=== PATIENT | female | born 1960 | race Caucasian/White ===

== ENCOUNTER 2021-11-07 14:03 | Emergency (ER) | payer OTHER, SELFPAY ==
--- NOTE | ~2021-11-07 | US_ITS ---
EXAMINATION: US ABDOMEN LIMITED CLINICAL INFORMATION: Elevated LFTs. COMPARISON: Abdominal ultrasound dated from 02/17/2015. TECHNIQUE: Real-time imaging of the right upper quadrant abdominal viscera. FINDINGS: PANCREAS: Normal. LIVER: Normal. The liver is normal in size. The liver contour is normal. Parenchymal echogenicity is normal. No focal hepatic lesion. There is no intrahepatic biliary duct dilatation seen. GALLBLADDER: The gallbladder is contracted and suboptimally visualized. No pericholecystic fluid is identified. Yates sign was negative. COMMON BILE DUCT: Normal in caliber measuring 0.2 cm in diameter. RIGHT KIDNEY: There are a few indeterminate cortical hyperechoic foci with no associated twinkle artifact nor posterior shadowing, largest measuring 0.3 cm. No hydronephrosis or focal parenchymal lesions. The kidney measures 8.2 cm in maximum dimension. FREE FLUID: None. US/US abdomen limited IMPRESSION: Indeterminate hyperechoic cortical foci in the right kidney, possibly representing nonobstructive stones or vascular calcifications. No hydronephrosis. The gallbladder was suboptimally visualized due to contraction. Recommend repeat imaging or further assessment with a CT of the abdomen if gallbladder pathology suspected.
--- NOTE | ~2021-11-07 | XR_ITS ---
EXAMINATION: XR CHEST CLINICAL INFORMATION: Lower extremity swelling. COMPARISON: None TECHNIQUE: Frontal view of the chest was obtained. FINDINGS: No significant abnormality is noted involving the heart, lungs, mediastinum, bony thorax or soft tissues. XR/XR chest 1V IMPRESSION: Unremarkable examination.
[2021-11-07 14:35] VITALS: BP 121/76; PULSE 62; RESP 16; TEMP 36.6; O2SAT 99; BMI 19.1
--- NOTE | 2021-11-07 15:58 | PC.NURSE ---
pt brought to triage room to draw blood. this rn placing tourniquet on left arm, tourniquet tightening appears to have given pt skin tear to l upper arm, bleeding controlled. telfa dressing with gauze wrapped around wound site. following blood draw, small skin tear appearing on left forearm where needle hub sat against skin. lower forearm wound also covered with telfa and gauze wrap.
[2021-11-07 16:05] LABS: Hematocrit 25.1 % (37.0-47.0); Hemoglobin 7.3 g/dl (12.0-16.0); Mean Corpuscular HGB Conc 29.1 g/dl (31.0-35.0); Mean Corpuscular Hemoglobin 23.3 pg (27.0-33.0); Mean Corpuscular Volume 80.2 fL (80.0-98.0); Platelet Count 389 X10*3/uL (160-400); Red Blood Count 3.13 X10*6/uL (4.20-5.50); White Blood Count 4.4 X10*3/uL (4.8-10.8)
[2021-11-07 16:20] LABS: Anion Gap 12 (12-20); Blood Urea Nitrogen 16 mg/dL (9-16); Calcium 9.1 mg/dL (8.4-10.2); Carbon Dioxide 27 mmol/L (22-29); Chloride 109 mmol/L (96-108); Creatinine Clr Calc Pharmacy 68.3; Estimated Glomerular Filt Rate > 60; Glucose Random 62 mg/dL (60-115); Potassium 4.9 mmol/L (3.3-5.1); Sodium 143 mmol/L (135-145)
[2021-11-07 16:24] LABS: B Type Natriuretic Peptide 336 pg/mL (<100); Troponin-I High Sensitivity < 3.5 ng/L (<3.5-17.0)
--- NOTE | 2021-11-07 18:54 | ECG_ITS ---
Test Reason : WEAKNESS Blood Pressure : / mmHG Vent. Rate : 050 BPM Atrial Rate : 050 BPM P-R Int : 140 ms QRS Dur : 074 ms QT Int : 438 ms P-R-T Axes : 089 072 076 degrees QTc Int : 399 ms Sinus bradycardia Otherwise normal ECG When compared with ECG of 17-FEB-2015 19:54, Questionable change in QRS axis Non-specific change in ST segment in Inferior leads T wave inversion no longer evident in Inferior leads Referred By: Lisandra Crespo Electronically Signed By:LOGAN ENAMORADO
--- NOTE | 2021-11-07 19:16 | ED_ITS ---
HPI - Extremity Problem General Chief complaint: Extremity Injury, Lower Stated complaint: Weakness/Swollen feet Time Seen by Provider: 11/07/21 18:54 Source: patient Mode of arrival: ambulatory Limitations: no limitations History of Present Illness HPI Narrative: also notes since increased fatigue, weight loss, dyspnea on exertion, runs for 1 hour a day usually for decades but it has become much kendy dorcas Complaint: extremity swelling Onset (ago): week(s) (1) Pain Consistency: intermittent Location: left, right and lower extremity (ankles and feet) Quality: aching and dull Radiation: none Relieving factors: nothing Exacerbating factors: weight bearing and walking Associated symptoms: denies other symptoms Context: other (has not been able to run, cannot see PCP at [place] due to her PCP retiring and COVID restrictions told to come to ED) Related Data Previous Rx's Medication Instructions Recorded ferrous sulfate 325 mg (65 mg 325 mg PO DAILY #30 tab 11/07/21 iron) tablet furosemide 20 mg tablet (Lasix) 20 mg PO DAILY #4 tab 11/07/21 Allergies Allergy/AdvReac Type Severity Reaction Status Date / Time No Known Allergies Allergy Unverified 06/24/20 14:42 [No Known Allergies*] Review of Systems Verdana 4l Review of Systems: Verdana 4d Verdana 4d Constitutional : pos Weight loss, No Fever, No Chills, pos Fatigue, No Malaise ENT/Mouth : No sore throat, No Rhinorrhea Eyes: No Eye Pain, No Swelling, No Redness Cardiovascular : No Chest Pain, No SOB, pos Dyspnea on Exertion, No OrthopneaOrthopnea, pos Edema, No Palpitations Respiratory : No Cough, No Sputum, No Wheezing Gastrointestinal : No Nausea, No Vomiting, No Diarrhea, No Constipation, No abdominal Pain, No Hematochezia, No Melena Genitourinary : No Dysuria, No Urinary Frequency, No Hematuria, Musculoskeletal : No joint pain, No Myalgias, No Joint Swelling Skin : No Skin Lesions, No rash Neuro : No Weakness, No Numbness, No Dizziness, No Headache Psych : No Anxiety/Panic, No Depression Heme/Lymph: pos Bruising, No Bleeding,No Lymphadenopathy Endocrine : No Polyuria, No Polydipsia All other systems reviewed and are negative PMFSH Past Medical History Attestation statement: The following information was validated with the patient. 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 Oriented X3. No acute distress. Cachectic Eyes: Pupils equal, round and reactive to light. ENT: Pharynx normal. Temporal wasting Neck: Normal inspection. Neck supple. CVS: bradycardic heart rate and rhythm. Pulses normal. Respiratory: No respiratory distress. Breath sounds normal. Abdomen: Soft and non-tender. Skin: Skin warm and dry. diffuse easy bruising noted Normal skin turgor. Extremities: pitting edema of ankles and feet 1-2+ Neuro: Oriented X 3. No motor deficit. No sensory deficit. Course Course Course Narrative: elevated LFTs denies ETOH use - US ordered of liver refuses guiac study - I explained that this could be GIB and not Fe, B12, folate given MCV she adamantly refuses guiac test alert and oriented x 3 aware I wanted to admit her but refuses - RN present for discharge conversation and discussion of results MDM - Extremity (Nontraumatic) MDM Narrative Medical decision making narrative: 61 yo female with remote hx of iron deficiency anemia states [facility] but notes since Thanksgiving she has been more fatigued normally runs 1 hour a day but has noted more shortness of breath. She denies GIB symptoms - refuses guiac study. She wants to leave only wants a diuretic to decrease her ankle and feet swelling. I explained that her anemia needs to be worked up and she likely was running anemic which probably caused a cardiomyopathy - she is not interested in staying over and really any medical workup. I explained to her that even if we get her ankle swelling down she cannot run as she is still anemic and she could have a heart attack. She is clearly very stubborn and is not going to agree to much more of a work up in the ED. I am adding on LFTs, iron profile, EKG, CXR. The patient states she has to leave to take care of her mother who is 86 year old. Lab Data Result diagrams: 11/07/21 15:52 11/07/21 15:52 Labs: Lab Results 11/07/21 11/07/21 11/07/21 Range/Units 15:52 15:52 15:52 WBC 4.4 L (4.8-10.8) X10*3/uL RBC 3.13 L (4.20-5.50) X10*6/uL Hgb 7.3 L (12.0-16.0) g/dl Hct 25.1 L (37.0-47.0) % MCV 80.2 (80.0-98.0) fL MCH 23.3 L (27.0-33.0) pg MCHC 29.1 L (31.0-35.0) g/dl RDW 27.0 H (11.0-16.0) % Plt Count 389 (160-400) X10*3/uL MPV 9.0 L (9.4-12.3) fL Absolute Nucleated RBC 0.000 (0.0-0.012) X10*3/uL Nucleated RBC % (auto) 0.0 (0.0-0.2) /100WBC Sodium 143 (135-145) mmol/L Potassium 4.9 (3.3-5.1) mmol/L Chloride 109 H (96-108) mmol/L Carbon Dioxide 27 (22-29) mmol/L Anion Gap 12 (12-20) BUN 16 (9-16) mg/dL Creatinine 0.66 (0.5-1.4) mg/dL Estim Creat Clear Calc 68.3 Estimated GFR > 60 Random Glucose 62 (60-115) mg/dL Calcium 9.1 (8.4-10.2) mg/dL Iron 33 (30-160) mcg/dL TIBC 311 (228-428) mcg/dL % Saturation 11 L (15-50) % Unsat Iron Binding 278 ug/dL Total Bilirubin 0.6 (0.0-1.0) mg/dL Direct Bilirubin 0.2 (0.0-0.5) mg/dL AST 116 H (5-31) U/L ALT 110 H (0-31) U/L Alkaline Phosphatase 158 H (39-117) U/L Troponin I High Sens < 3.5 (<3.5-17.0) ng/L B-Natriuretic Peptide 336 H (<100) pg/mL Total Protein 5.7 L (6.5-8.0) g/dL Albumin 3.0 L (3.5-5.0) g/dL TSH 4.58 H (0.32-4.0) uIU/mL ECG Data Attestation EKG: I personally reviewed and interpreted this ECG as follows: ECG interpretation date: 11/07/21 ECG interpretation time: 19:26 Interpretation: Rate: 50 Rhythm: sinus bradycardia Heber: normal Normal P waves. Normal ROSA. Normal QRS complex. ST T wave : normal no JOANIE qTC: normal prior studies: no acute ischemia The study has been interpreted contemporaneously by me. . Discharge Plan Discharge Clinical Impression: Elevated brain natriuretic peptide (BNP) level, Elevated liver function tests, Swelling of both lower extremities Anemia Qualifiers: Anemia type: unspecified type Qualified Code(s): D64.9 - Anemia, unspecified Patient Disposition: Home, Self-Care Instructions: Heart Failure (ED), Anemia (ED), Edema (ED) Additional Instructions: you are anemic it is hard to say what the cause of this is but you refused stool studes to asses for gastronintestinal bleeding. your heart failure markers were up as well this is possibly due to running while anemic. If you continue to run you may have a heart attack. Your liver enzymes are also elevated at this time. You have abnormalities that need to be worked up further and followed closely. Admission to the hospital is advised. All of these abnormalities are very concerning. Your thyroid test also showed it to be mildly elevated as well. DO NOT RUN UNTIL ANEMIA RESOLVED US findings: US/US abdomen limited IMPRESSION: Indeterminate hyperechoic cortical foci in the right kidney, possibly representing nonobstructive stones or vascular calcifications. ? No hydronephrosis. ? The gallbladder was suboptimally visualized due to contraction. Recommend repeat imaging or further assessment with a CT of the abdomen if gallbladder pathology suspected. Prescriptions: New ferrous sulfate 325 mg (65 mg iron) tablet 325 mg PO DAILY Qty: 30 0RF furosemide [Lasix] 20 mg tablet 20 mg PO DAILY Qty: 4 0RF Referrals: Physician,Unknown J [Primary Care Provider] - 1 day (please call your primary care doctor as soon as possible)
[2021-11-07 19:22] LABS: Alanine Aminotransferase 110 U/L (0-31); Alkaline Phosphatase 158 U/L (39-117); Aspartate Amino Transferase 116 U/L (5-31); Bilirubin Direct 0.2 mg/dL (0.0-0.5); Bilirubin Total 0.6 mg/dL (0.0-1.0); Iron 33 mcg/dL (30-160); Percent Iron Saturation 11 % (15-50); Total Iron Binding Capacity 311 mcg/dL (228-428); Total Protein 5.7 g/dL (6.5-8.0); Unsaturated Iron Binding 278 ug/dL
[2021-11-07 19:36] LABS: Thyroid Stimulating Hormone 4.58 uIU/mL (0.32-4.0)
[2021-11-07 19:54] VITALS: BP 131/76; PULSE 46; RESP 17; O2SAT 100
== END 2021-11-07 21:19 | disposition home or self-care (01) ==
PROVIDERS: Emergency Provider Emergency Medicine
DX: D64.9 Anemia, unspecified (principal); R79.89 Other specified abnormal findings of blood chemistry; M79.672 Pain in left foot; M79.671 Pain in right foot; R60.0 Localized edema; R06.02 Shortness of breath; Z87.891 Personal history of nicotine dependence
CPT/HCPCS: 36415; 71045; 76705; 80048; 80076; 83540; 83880; 84443; 84484; 85027; 93005; 99284

== ENCOUNTER 2021-11-15 07:55 | Inpatient (IN) | payer OTHER, SELFPAY ==
[2021-11-15] VITALS (9 sets, daily range): BP systolic 118–145; BP diastolic 67–88; PULSE 51–99; RESP 12–18; TEMP 36.4–36.8; O2SAT 96–100; BMI 16.5
--- NOTE | ~2021-11-15 | XR_ITS ---
EXAMINATION: LEFT HIP WITH PELVIS AND LEFT KNEE X-RAYS CLINICAL INFORMATION: Fall COMPARISON: None TECHNIQUE: 2 views of the left knee and 2 views of the left hip and one view of the pelvis FINDINGS: Left knee: Bone alignment is normal. No fracture or dislocation is seen. The bones are osteopenic. There is degenerative meniscal calcification. There is arthritis at the patellofemoral and femoral tibial joints. There is no joint effusion. Pelvis and left hip: There is a left femoral intertrochanteric fracture. No other fracture is seen. There is joint space narrowing at both hip joints. Bones of the pelvis are unremarkable. There is soft tissue arterial calcification. XR/XR hip LT min 2V IMPRESSION: Left femoral intertrochanteric fracture. Arthritis and osteopenia of the left knee.
--- NOTE | ~2021-11-15 | FL_ITS ---
EXAMINATION: XR FLUOROSCOPY WITH IMAGES CLINICAL INFORMATION: Left hip fracture COMPARISON: Previous x-ray from yesterday TECHNIQUE: Fluoroscopy performed by Dr. Prakash Mc. Fluoroscopy time: 0.7 minutes DAP: 0.07 [id number] Images: 5 FINDINGS: Images demonstrate an intramedullary toni in a proximal compression/lag screw and single distal cortical screw in the femur with improved alignment of the left femoral intertrochanteric fracture. FL/FL guidance in OR IMPRESSION: ORIF of left femoral intertrochanteric fracture.
--- NOTE | ~2021-11-15 | XR_ITS ---
EXAMINATION: LEFT HIP WITH PELVIS AND LEFT KNEE X-RAYS CLINICAL INFORMATION: Fall COMPARISON: None TECHNIQUE: 2 views of the left knee and 2 views of the left hip and one view of the pelvis FINDINGS: Left knee: Bone alignment is normal. No fracture or dislocation is seen. The bones are osteopenic. There is degenerative meniscal calcification. There is arthritis at the patellofemoral and femoral tibial joints. There is no joint effusion. Pelvis and left hip: There is a left femoral intertrochanteric fracture. No other fracture is seen. There is joint space narrowing at both hip joints. Bones of the pelvis are unremarkable. There is soft tissue arterial calcification. XR/XR knee LT 2V IMPRESSION: Left femoral intertrochanteric fracture. Arthritis and osteopenia of the left knee.
--- NOTE | 2021-11-15 08:31 | ED_ITS ---
HPI - Extremity Injury (Lower) General Chief Complaint: Extremity Injury, Lower Stated Complaint: L LEG PAIN S/P FALL T-1 PER EMS Time Seen by Provider: 11/15/21 08:09 Source: patient and EMS Mode of arrival: EMS Limitations: no limitations History of Present Illness HPI Narrative: Patient comes emergency room complaining of fall . Patient is brought by EMS. Patient states that yesterday she had a mechanical fall in her basement, patient slipped in water. Patient states she did not hit her head or lose consc iousness. Patient denies being on blood thinners. Related Data Home Medications Medication Instructions Recorded Confirmed cholecalciferol (vitamin D3) 25 25 mcg PO DAILY 11/15/21 11/15/21 mcg (1,000 unit) capsule (Vitamin D3) cyanocobalamin (vitamin B-12) 500 500 mcg PO DAILY 11/15/21 11/15/21 mcg tablet [id number] 8 mg-folic 1 tab PO DAILY 11/15/21 11/15/21 ac 400 mcg-vit K 10 mcg chew tablet (Centrum Chewables) Previous Rx's Medication Instructions Recorded ferrous sulfate 325 mg (65 mg 325 mg PO DAILY #30 tab 11/07/21 iron) tablet Allergies Allergy/AdvReac Type Severity Reaction Status Date / Time No Known Allergies Allergy Unverified 06/24/20 14:42 [No Known Allergies*] Review of Systems Review of Systems: Constitutional : No Weight loss, No Fever, No Chills, No Night Sweats, No Fatigue, No Malaise ENT/Mouth : No Hearing loss, No Ear Pain, No Nasal Congestion, No Sinus Pain, No Hoarseness, No sore throat, No Rhinorrhea, No Swallowing Difficulty Eyes: No Eye Pain, No Swelling, No Redness, No Foreign Body, No Discharge, No Vision Changes Cardiovascular : No Chest Pain, No SOB, No Dyspnea on Exertion, No Orthopnea, No Edema, No Palpitations Respiratory : No Cough, No Sputum, No Wheezing, No Smoke Exposure, No Dyspnea Gastrointestinal : No Nausea, No Vomiting, No Diarrhea, No Constipation, No abdominal Pain, No Hematochezia, No Melena Genitourinary : no irregular bleeding, No Dysuria, No Urinary Frequency, No Hematuria, No Urinary Incontinence, No Urgency, No Flank Pain, No Urinary Flow Changes, No Hesitancy Musculoskeletal : Complaining of left lower extremity pain from the hip to the knee, No Myalgias, No Joint Swelling Skin : Complaining of skin tears in the left lower extremity Neuro : No Weakness, No Numbness, No Paresthesias, No Loss of Consciousness, No Dizziness, No Headache Psych : No Anxiety/Panic, No Depression, No SI/HI/AH/VH, No Social Issues, Heme/Lymph: No Bruising, No Bleeding,No Lymphadenopathy Endocrine : No Polyuria, No Polydipsia, No Temperature Intolerance [facility] Past Medical History Medical History Anemia Social History Social History (Updated 11/07/21 @ 19:32 by Lisandra Crespo DO) Patient Tobacco Use Status: Former Tobacco user Advance Directives: No Advance Directives Information Provided: No Patient : No Physical Exam Vital Signs: Vital Signs: Last Vital Signs Temp 98.2 F 11/15/21 10:50 Pulse 52 11/15/21 10:50 Resp 15 11/15/21 10:50 BP 137/67 11/15/21 10:50 Pulse Ox 96 11/15/21 10:50 BMI result Body Mass Index 16.5 Const: Other: Appearance: Alert. Oriented X3. No acute distress. Extremely cachectic, significant temporal wasting Eyes: Pupils equal, round and reactive to light. ENT: Pharynx normal. Neck: Normal inspection. Neck supple. No lymph nodes noted. No crepitus CVS: Bradycardic, Pulses normal. Respiratory: No respiratory distress. Breath sounds normal. No Wheezing. No rales Abdomen: Soft and nontender. Very cachectic Rectal: Patient refused Skin: Skin warm and dry. Multiple skin abrasions to the left lower extremity. Patient has multiple ecchymoses in upper and lower extremities Extremities: See skin above. Pain with knee flexion and extension but able to do so with limited range of motion, mild pain with hip flexion/extension Neuro: Oriented X 3. No motor deficit. No sensory deficit. Moving all extermities. No slurred speech. Course Course Course Narrative: Besides imaging, patient needs blood work. Patient is extremely cachectic. Reviewing patient's notes, she was seen here on November 07. Patient was diagnosed with anemia and sent home with oral iron. Last visit patient declined admission and declined guaiac test. This visit, patient states that she had blood work done a week ago and today she refuses blood work or any other medical intervention other than x-rays and have her abrasions cleaned. I discussed with the patient her physical exam. Patient does not look healthy. As mentioned above, patient declined any other medical intervention other than x-rays. Decline case management. Patient states that she wants crutches and then be discharged. Patient declines admission. After a long conversation with the patient, patient accepted to have an orthopedics consult. Dr. Mc spoke with the patient, patient accepts to get labs, get admitted, and have surgery tomorrow. Patient's hemoglobin improved. At this time, patient declines digital rectal exam. However, patient is willing to get blood transfused. The patient signed the consent, now in patient's chart. I discussed the risks versus benefits of a blood transfusion, patient agreeable. Patient states she has had blood transfusions in the past, [facility]. Patient will get 1 unit. I discussed the patient with Dr. Ro, pt admitted to the surgery service MDM - Extremity Injury (Lower) Lab Data Result diagrams: 11/15/21 11:52 11/15/21 11:52 Labs: Lab Results 11/15/21 11/15/21 11/15/21 Range/Units 11:52 11:52 11:52 WBC 6.6 (4.8-10.8) X10*3/uL RBC 3.10 L (4.20-5.50) X10*6/uL Hgb 7.7 L (12.0-16.0) g/dl Hct 25.7 L (37.0-47.0) % MCV 82.9 (80.0-98.0) fL MCH 24.8 L (27.0-33.0) pg MCHC 30.0 L (31.0-35.0) g/dl RDW 26.7 H (11.0-16.0) % Plt Count 361 (160-400) X10*3/uL MPV 9.2 L (9.4-12.3) fL Immature Gran % (Auto) 0.5 H (0.0-0.4) % Neut % (Auto) 77.8 H (45-73) % Lymph % (Auto) 12.0 L (20-40) % Johnston % (Auto) 9.2 (2-11) % Eos % (Auto) 0.0 (0-4) % Baso % (Auto) 0.5 (0-2) % Lymph # (Auto) 0.8 L (1.2-4.9) X10*3/uL Johnston # (Auto) 0.6 (0.1-1.2) X10*3/uL Eos # (Auto) 0.0 (0.0-0.4) X10*3/uL Baso # (Auto) 0.0 (0.0-0.2) X10*3/uL Abs Immat Gran (auto) 0.03 (0.00-0.03) X10*3/uL Absolute Neuts (auto) 5.1 (2.0-8.3) x10*3/uL Absolute Nucleated RBC 0.000 (0.0-0.012) X10*3/uL Nucleated RBC % (auto) 0.0 (0.0-0.2) /100WBC PT 11.0 (9.9-13.0) SEC INR 1.0 (0.9-1.1) Sodium 147 H (135-145) mmol/L Potassium 3.8 D (3.3-5.1) mmol/L Chloride 103 (96-108) mmol/L Carbon Dioxide 32 H (22-29) mmol/L Anion Gap 16 (12-20) BUN 28 H D (9-16) mg/dL Creatinine 0.82 (0.5-1.4) mg/dL Estim Creat Clear Calc 45.8 Estimated GFR > 60 Random Glucose 54 L* (60-115) mg/dL Calcium 10.0 D (8.4-10.2) mg/dL Magnesium 2.0 (1.6-2.6) mg/dL Total Bilirubin 1.2 H (0.0-1.0) mg/dL Direct Bilirubin 0.4 (0.0-0.5) mg/dL AST 36 H D (5-31) U/L ALT 53 H (0-31) U/L Alkaline Phosphatase 140 H (39-117) U/L Total Protein 5.7 L (6.5-8.0) g/dL Albumin 3.1 L (3.5-5.0) g/dL COVID-19 ([facility]) (Negative) COVID-19 [facility] Blood Type Antibody Screen Crossmatch 11/15/21 11/15/21 Range/Units 11:52 12:01 WBC (4.8-10.8) X10*3/uL RBC (4.20-5.50) X10*6/uL Hgb (12.0-16.0) g/dl Hct (37.0-47.0) % MCV (80.0-98.0) fL MCH (27.0-33.0) pg MCHC (31.0-35.0) g/dl RDW (11.0-16.0) % Plt Count (160-400) X10*3/uL MPV (9.4-12.3) fL Immature Gran % (Auto) (0.0-0.4) % Neut % (Auto) (45-73) % Lymph % (Auto) (20-40) % Johnston % (Auto) (2-11) % Eos % (Auto) (0-4) % Baso % (Auto) (0-2) % Lymph # (Auto) (1.2-4.9) X10*3/uL Johnston # (Auto) (0.1-1.2) X10*3/uL Eos # (Auto) (0.0-0.4) X10*3/uL Baso # (Auto) (0.0-0.2) X10*3/uL Abs Immat Gran (auto) (0.00-0.03) X10*3/uL Absolute Neuts (auto) (2.0-8.3) x10*3/uL Absolute Nucleated RBC (0.0-0.012) X10*3/uL Nucleated RBC % (auto) (0.0-0.2) /100WBC PT (9.9-13.0) SEC INR (0.9-1.1) Sodium (135-145) mmol/L Potassium (3.3-5.1) mmol/L Chloride (96-108) mmol/L Carbon Dioxide (22-29) mmol/L Anion Gap (12-20) BUN (9-16) mg/dL Creatinine (0.5-1.4) mg/dL Estim Creat Clear Calc Estimated GFR Random Glucose (60-115) mg/dL Calcium (8.4-10.2) mg/dL Magnesium (1.6-2.6) mg/dL Total Bilirubin (0.0-1.0) mg/dL Direct Bilirubin (0.0-0.5) mg/dL AST (5-31) U/L ALT (0-31) U/L Alkaline Phosphatase (39-117) U/L Total Protein (6.5-8.0) g/dL Albumin (3.5-5.0) g/dL COVID-19 ([facility]) Negative (Negative) COVID-19 Clin Com See Note Blood Type O Positive Antibody Screen NEGATIVE Crossmatch See Detail Critical Care Time Critical Care Time Critical Care Time: Yes Total Critical Care Time: 50 Attestation: 50 minutes were spent in direct patient care, consults Discharge Plan Discharge Clinical Impression: Closed intertrochanteric fracture of femur, Anemia Patient Disposition: Admitted As Inpatient
[2021-11-15] MEDS: traMADoL HCL 50 MG TABLET PO (08:50)
--- NOTE | 2021-11-15 11:39 | ECG_ITS ---
Test Reason : FALL Blood Pressure : / mmHG Vent. Rate : 055 BPM Atrial Rate : 055 BPM P-R Int : 148 ms QRS Dur : 078 ms QT Int : 396 ms P-R-T Axes : 085 075 089 degrees QTc Int : [address] & T wave abnormality, consider anterior ischemia Abnormal ECG When compared with ECG of 07-NOV-2021 19:20, T wave inversion now evident in Anterior leads Referred By: Isela De Jesus Electronically Signed By:Abdelrahman Trujillo
[2021-11-15 12:13] LABS: MANUAL DIFF FLAG NO
[2021-11-15 12:15] LABS: Basophils Percent Auto 0.5 % (0-2); Hematocrit 25.7 % (37.0-47.0); Hemoglobin 7.7 g/dl (12.0-16.0); Imm Gran Abs Auto 0.03 X10*3/uL (0.00-0.03); Imm Gran Pct Auto 0.5 % (0.0-0.4); Lymphocytes Absolute Auto 0.8 X10*3/uL (1.2-4.9); Mean Corpuscular Hemoglobin 24.8 pg (27.0-33.0); Mean Corpuscular Volume 82.9 fL (80.0-98.0); Mean Platelet Volume 9.2 fL (9.4-12.3); Monocytes Absolute Auto 0.6 X10*3/uL (0.1-1.2); Monocytes Percent Auto 9.2 % (2-11); Neutrophils Absolute Auto 5.1 x10*3/uL (2.0-8.3); Neutrophils Percent Auto 77.8 % (45-73); Platelet Count 361 X10*3/uL (160-400); Red Cell Distribution Width 26.7 % (11.0-16.0); White Blood Count 6.6 X10*3/uL (4.8-10.8)
[2021-11-15 12:35] LABS: COVID-19 Test Negative (Negative)
[2021-11-15 12:37] LABS: Alanine Aminotransferase 53 U/L (0-31); Albumin Level 3.1 g/dL (3.5-5.0); Alkaline Phosphatase 140 U/L (39-117); Anion Gap 16 (12-20); Aspartate Amino Transferase 36 U/L (5-31); Bilirubin Direct 0.4 mg/dL (0.0-0.5); Bilirubin Total 1.2 mg/dL (0.0-1.0); Blood Urea Nitrogen 28 mg/dL (9-16); Carbon Dioxide 32 mmol/L (22-29); Chloride 103 mmol/L (96-108); Creatinine Clr Calc Pharmacy 45.8; Estimated Glomerular Filt Rate > 60; Glucose Random 54 mg/dL (60-115); Potassium 3.8 mmol/L (3.3-5.1); Sodium 147 mmol/L (135-145); Total Protein 5.7 g/dL (6.5-8.0)
--- NOTE | 2021-11-15 13:02 | PHA.MEDREC ---
Pharmacy Consult ? Medication Reconciliation Pharmacy has completed the medication reconciliation. Spoke with patient in ED. Completed 4 days of Furosemide and only on Vitamin supplements.
[2021-11-15 13:26] LABS: Glucose, Whole Blood 118 mg/dL (60-115)
--- NOTE | 2021-11-15 14:09 | P.HPHOSP_ITS ---
History of Present Illness Date of Service: 11/15/21 Chief Complaint: fall, hip pain 61yo F with no chronic medical conditions but recently diagnosed with normocytic anemia. She runs 1 hour daily at an 8:00/mile pace but has had increasing fatigue since along with an 8-lb weight loss, and presented to the ED 11/07/21, where was was noted to have Hb 7.3 with MCV 80. She refused stool occult blood exam. She was prescribed iron. She was also noted to have peripheral edema and was prescribed furosemide. BNP was elevated to 336. AST was 116 and ALT 110. Albumin 3. She denies hematochezia or melena. Her PCP at the [facility] recently retired and she does not yet have a new one. Yesterday at 14:00, she slipped in a puddle of water in her basement and fell on her left side. No loss of consciousness or head trauma and the fall was clearly mechanical. She somehow crawled to bed. Today, she called EMS due to persistent L hip pain. She is found on imaging to have an intertrochanteric fracture of the left hip. She is also noted to be anemic and cachectic. She insists she needs to go home as soon as possible to take care of her elderly mother. She insists on being discharged home right after operative fixation. Review of Systems Review of Systems: Yes all other systems are reviewed and are negative [facility] Medical History Anemia Functional capacity: independent ambulation Pertinent family history: mother- [place] father- [place] Social History Patient Tobacco Use Status: Former Tobacco user Advance Directives: No Advance Directives Information Provided: No Patient : No Narrative: lives with mother was in the [facility] for 8 yr quit smoking after 30 pk/yr hx no EtOH or drug use Meds Allergies Allergy/AdvReac Type Severity Reaction Status Date / Time No Known Allergies Allergy Unverified 06/24/20 14:42 [No Known Allergies*] Active Medications: Current Medications Pharmacy Consult (Consult Rx Perform Med Rec) 1 each MISCELLANE ONCE PRN PRN Reason: Consult order Vitamin D (Cholecalciferol (Vitamin D3) 25 Mcg Tablet) 25 mcg PO DAILY [facility] Home Medications Medication Instructions Recorded Confirmed Last Taken Type cholecalciferol (vitamin D3) 25 25 mcg PO DAILY 11/15/21 11/15/21 11/14/21 History mcg (1,000 unit) capsule (Vitamin D3) cyanocobalamin (vitamin B-12) 500 500 mcg PO DAILY 11/15/21 11/15/21 11/14/21 History mcg tablet [id number] 8 mg-folic 1 tab PO DAILY 11/15/21 11/15/21 11/14/21 History ac 400 mcg-vit K 10 mcg chew tablet (Centrum Chewables) Physical Exam Vital Signs and Narrative: Vital Signs: Last Vital Signs Temp 98.1 F 11/15/21 13:52 Pulse 55 11/15/21 13:52 Resp 12 11/15/21 13:52 BP 134/78 11/15/21 13:52 Pulse Ox 99 11/15/21 13:31 BMI result Body Mass Index 16.5 Gen: NAD, cachectic HEENT: sclera anicteric, moist mucus membranes Neck: supple Lungs: clear to auscultation bilaterally Heart: bradycardic, no murmurs Abd: soft, non-tender, non-distended Ext: no edema, multiple abrasions to L leg, multiple ecchymoses on extremities, LLE externally rotated Skin: warm/well-perfused Neuro: alert and oriented x3, no focal findings Psych: appropriate affect Results Labs CBC and Chem 7: 11/15/21 11:52 11/15/21 11:52 Labs: Laboratory Results - last 24 hr 11/15/21 11/15/21 11/15/21 11:52 11:52 11:52 MCV 82.9 MCH 24.8 L MCHC 30.0 L RDW 26.7 H Plt Count 361 MPV 9.2 L Immature Gran % (Auto) 0.5 H Neut % (Auto) 77.8 H Lymph % (Auto) 12.0 L [place] % (Auto) 9.2 Eos % (Auto) 0.0 Baso % (Auto) 0.5 Lymph # (Auto) 0.8 L [place] # (Auto) 0.6 Eos # (Auto) 0.0 Baso # (Auto) 0.0 Abs Immat Gran (auto) 0.03 Absolute Neuts (auto) 5.1 Absolute Nucleated RBC 0.000 Nucleated RBC % (auto) 0.0 PT 11.0 INR 1.0 Anion Gap 16 Estim Creat Clear Calc 45.8 Estimated GFR > 60 POC Glucose Random Glucose 54 L* Calcium 10.0 D Magnesium 2.0 Total Bilirubin 1.2 H Direct Bilirubin 0.4 AST 36 H D ALT 53 H Alkaline Phosphatase 140 H Total Protein 5.7 L Albumin 3.1 L COVID-19 ([facility]) COVID-19 Clin Com Blood Type Antibody Screen Crossmatch 11/15/21 11/15/21 11/15/21 11:52 12:01 13:22 MCV MCH MCHC RDW Plt Count MPV Immature Gran % (Auto) Neut % (Auto) Lymph % (Auto) [place] % (Auto) Eos % (Auto) Baso % (Auto) Lymph # (Auto) [place] # (Auto) Eos # (Auto) Baso # (Auto) Abs Immat Gran (auto) Absolute Neuts (auto) Absolute Nucleated RBC Nucleated RBC % (auto) PT INR Anion Gap Estim Creat Clear Calc Estimated GFR POC Glucose 118 H Random Glucose Calcium Magnesium Total Bilirubin Direct Bilirubin AST ALT Alkaline Phosphatase Total Protein Albumin COVID-19 ([facility]) Negative COVID-19 Clin Com See Note Blood Type O Positive Antibody Screen NEGATIVE Crossmatch See Detail Impressions Hip X-Ray 11/15/21 09:09 IMPRESSION: Left femoral intertrochanteric fracture. Arthritis and osteopenia of the left knee. Knee X-Ray 11/15/21 09:09 IMPRESSION: Left femoral intertrochanteric fracture. Arthritis and osteopenia of the left knee. Imaging Radiologist's Impressions: Impressions Hip X-Ray 11/15/21 09:09 IMPRESSION: Left femoral intertrochanteric fracture. Arthritis and osteopenia of the left knee. Knee X-Ray 11/15/21 09:09 IMPRESSION: Left femoral intertrochanteric fracture. Arthritis and osteopenia of the left knee. Assessment and Plan (1) Closed intertrochanteric fracture of femur: Status: Acute (2) Anemia: Status: Acute Plan 61yo F with recently diagnosed anemia, transaminasemia, peripheral edema, and hypoalbuminemia presenting after mechanical fall with left femoral intertrochanteric fracture. # intertrochanteric fracture. - admit to M/S, Ortho consult, NPO after midnight for operative fixation # anemia, normocytic - transfuse 1u pRBCs - check iron studies, B12/folate, LDH/retics, FOBT # transaminasemia - AST/ALT improved. US with normal liver 11/07/21. check HBV/HCV status. # hypoglycemia - resolved # elevated BNP/peripheral edema - will check TTE. possibility of exercise-induced cardiomyopathy was raised at last ED visit # hyperNa - encourage free water intake, recheck BMP in am # severe protein/calorie malnutrition - supplements # VTE ppx - SCDs # code - FULL Quality Stroke Does the patient have a stroke diagnosis?: No VTE Prior VTE?: No VTE Risk Level:: Medical - moderate - high VTE Device Contraindication: N/A - Device Ordered VTE Drug Contraindication: N/A - Med Ordered
[2021-11-15 14:47] LABS: Immature Retic Fraction 20.4 % (3.0-15.9); Retic HGB Equivalent 32.2 pg (30.0-35.0); Reticulocyte Percent 1.4 % (0.5-1.8); Reticulocytes Absolute 0.043 X10*6/uL (0.026-0.095)
[2021-11-15] MEDS: ondansetron HCL 4 MG/2 ML VIAL IVPUSH (14:58)
[2021-11-15] MEDS: Morphine Sulfate 2 MG/ML CARTRIDGE IVPUSH ×3 (15:00→23:51)
[2021-11-15 15:02] LABS: Iron 67 mcg/dL (30-160); Lactate Dehydrogenase 323 U/L (122-220); Percent Iron Saturation 22 % (15-50); Total Iron Binding Capacity 309 mcg/dL (228-428); Unsaturated Iron Binding 242 ug/dL
[2021-11-15 15:15] LABS: B Type Natriuretic Peptide 201 pg/mL (<100)
[2021-11-15 15:23] LABS: Ferritin 33 ng/mL (10-250); TSH reflex Free T4 4.93 uIU/mL (0.32-4.0)
[2021-11-15] MEDS: 0.9 % Sodium Chloride Flush 3 ML SYRINGE IVFLUSH ×2 (15:36→23:42)
[2021-11-15 16:10] LABS: Free T4 (Free Thyroxine) 0.83 ng/dL (0.71-1.85)
--- NOTE | 2021-11-15 17:08 | MHC.CM.PN ---
PATIENT LIVES WITH HER MOTHER/NEW HCP ( WILL BE COMPLETED AND PLACED IN CHART) PATIENT HAS CRUTCHES SHE IS VERBALIZES ANXIETY AROUND BEING HERE, HER MOTHER IS ALONE IN THE HOME. WHEN ASKED IF THIS SMALL BUSINESS REPRESENTATIVE COULD CALL HER MOTHER, SHE DENIES, STATING THAT THE MOTHER WILL NOT ANSWER UNKNOWN NUMBERS. PATIENT ADVISED TO CALL HER MOTHER AND LET THIS SMALL BUSINESS REPRESENTATIVE KNOW IF SHE FEELS MOTHER NEEDS A WELLNESS CHECK. PATIENT DENIES THIS INTERVENTION. PATIENT HAS BEEN COVID-19 VACCINATED WITH PFIZER AND BOOSTER SERIES SHE IS UNABLE TO RECALL THE DATES BUT DOES HAVE THE SHOT RECORD AT HOME. SHE HAS NOT SEEN A PCP IN 'YEARS ANDYEARS BUT DOES STATE THAT [facility] ([facility]) COVERS ANY NEEDS SHE MAY HAVE WHEN ASKED FOR AN EXPLANATION OF BENEFITS SHE RECEIVES, SHE REPLIES EYE CARE, MY TEETH, AND MEDICAL SHE TELLS THIS SMALL BUSINESS REPRESENTATIVE THAT PLAN IS FOR SURGICAL INTERVENTION TOMORROW MORNING CASE MANAGEMENT FOLLOWING
--- NOTE | 2021-11-15 18:13 | PC.NURSE ---
Attempted to call report RN Unavailable. Will attempt contact in 15 minutes
[2021-11-16] VITALS (16 sets, daily range): BP systolic 111–156; BP diastolic 57–86; PULSE 45–77; RESP 8–18; TEMP 35.1–36.8; O2SAT 98–100; BMI 16.5
[2021-11-16 06:02] LABS: Hematocrit 35.2 % (37.0-47.0); Hemoglobin 10.8 g/dl (12.0-16.0)
[2021-11-16 06:32] LABS: Alanine Aminotransferase 46 U/L (0-31); Albumin Level 2.9 g/dL (3.5-5.0); Alkaline Phosphatase 134 U/L (39-117); Anion Gap 12 (12-20); Aspartate Amino Transferase 30 U/L (5-31); Bilirubin Total 1.7 mg/dL (0.0-1.0); Blood Urea Nitrogen 37 mg/dL (9-16); Calcium 9.5 mg/dL (8.4-10.2); Carbon Dioxide 34 mmol/L (22-29); Chloride 102 mmol/L (96-108); Creatinine Clr Calc Pharmacy 48.8; Estimated Glomerular Filt Rate > 60; Glucose Random 33 mg/dL (60-115); Potassium 4.3 mmol/L (3.3-5.1); Sodium 144 mmol/L (135-145); Total Protein 5.4 g/dL (6.5-8.0)
[2021-11-16] MEDS: Dextrose 50 % 25 GM/50 ML SYRINGE IVPUSH (06:54)
[2021-11-16] MEDS: Morphine Sulfate 2 MG/ML CARTRIDGE IVPUSH ×4 (07:49→21:47)
[2021-11-16] MEDS: Dextrose 5 % and Lactated Ring 1,000 ML 80 ML IVCONT (07:49)
[2021-11-16] MEDS: 0.9 % Sodium Chloride Flush 3 ML SYRINGE IVFLUSH (07:49)
--- NOTE | 2021-11-16 08:00 | PM.HPOR ---
History of Present Illness History of Present Illness Date of Service: 11/16/21 Chief complaint: L hip fx Narrative: Karen Long is a 61 year old female who presents to the ED on 11/15/21 after sustaining a mechanical fall onto her left hip. She felt immediate pain. She was able to make it to her bed and rested overngiht. She continued to have pain and therefore called EMS in the morning. She presented to the ED where x-rays where obtained and she was found to have a left hip intertrochanteric fracture. She has a past medical history significant for anemia in which she was seen in the ED about 1 week ago. She refused a workup for this, refused transfused and requested d/c home with iron. She is very active and runs 8 miles per day. She was admitted to the hospitalist service and orthopedics was consulted for further evaluation and treatment. Review of Systems Review of Systems: Yes all other systems are reviewed and are negative PMFSH Past Medical History Medical History Anemia Functional capacity: independent ambulation Social History Social History Household Members: Other Household Members Other:: mother Housing: House Do you presently have visiting nurse or other home services: No Alcohol intake: never Patient Tobacco Use Status: Former Tobacco user service: Yes Current occupational status: employed Meds Allergies Allergy/AdvReac Type Severity Reaction Status Date / Time No Known Allergies Allergy Unverified 06/24/20 14:42 [No Known Allergies*] Active Medications: Current Medications Acetaminophen (Acetaminophen 325 Mg Tablet) 650 mg PO Q6H PRN PRN Reason: Pain, Mild (Pain Scale 1-3) Cyanocobalamin (Cyanocobalamin (Vitamin B-12) 500 Mcg Tablet) 500 mcg PO DAILY [facility] Last Admin: 11/16/21 07:32 Dose: Not Given Documented by: Ferrous Sulfate (Ferrous Sulfate 324 Mg Tablet.) 324 mg PO DAILY [facility] Last Admin: 11/16/21 07:32 Dose: Not Given Documented by: Dextrose/Lactated Ringer's ([email or web address]) 1,000 mls @ 80 mls/hr IVCONT .[id number] [facility]ERTO CARLOS Last Admin: 11/16/21 07:49 Dose: 80 mls/hr Documented by: Morphine Sulfate (Morphine Sulfate 2 Mg/Ml Cartridge) 2 mg IVPUSH Q4H PRN; Protocol PRN Reason: severe pain Last Admin: 11/16/21 07:49 Dose: 2 mg Documented by: Multivitamins/Vitamin C (Multivitamin Tablet) 1 tab PO DAILY [facility] Last Admin: 11/16/21 07:32 Dose: Not Given Documented by: Ondansetron HCl (Ondansetron Hcl 4 Mg/2 Ml Vial) 4 mg IVPUSH Q8H PRN PRN Reason: Nausea and Vomiting Last Admin: 11/15/21 14:58 Dose: 4 mg Documented by: Pharmacy Consult (Consult Rx Perform Med Rec) 1 each MISCELLANE ONCE PRN PRN Reason: Consult order Sodium Chloride (0.9 % Sodium Chloride Flush 3 Ml Syringe) 3 ml IVFLUSH QSHIFT [facility] Last Admin: 11/16/21 07:49 Dose: 3 ml Documented by: Vitamin D (Cholecalciferol (Vitamin D3) 25 Mcg Tablet) 25 mcg PO DAILY [facility] Last Admin: 11/16/21 07:32 Dose: Not Given Documented by: Home Medications Medication Instructions Recorded Confirmed Last Taken Type cholecalciferol (vitamin D3) 25 25 mcg PO DAILY 11/15/21 11/15/21 11/14/21 History mcg (1,000 unit) capsule (Vitamin D3) cyanocobalamin (vitamin B-12) 500 500 mcg PO DAILY 11/15/21 11/15/21 11/14/21 History mcg tablet [id number]-[id number]-[id number] 8 mg-folic 1 tab PO DAILY 11/15/21 11/15/21 11/14/21 History ac 400 mcg-vit K 10 mcg chew tablet (Centrum Chewables) Physical Exam Vital Signs: Vital Signs: Last Vital Signs Temp 97.9 F 11/16/21 07:35 Pulse 60 11/16/21 07:35 Resp 18 11/16/21 07:35 BP 111/57 L 11/16/21 07:35 Pulse Ox 100 11/16/21 07:35 BMI result Body Mass Index 16.5 Const: General: cooperative, healthy appearing and no acute distress Resp: Effort & Inspection: normal respiratory effort and able to speak in complete sentences Cardio: Rate: regular rate Peripheral pulses: Peripheral pulses 2+ throughout GI: Palpation (GI): Soft to palpation Skin: Lesions: no lesions Rashes: no rashes Extrem: Other: Left lower extremity unable to perform straight leg raise. Pain with log roll. NVI. Results Labs Result Diagrams: 11/16/21 05:32 11/16/21 05:32 Labs: Abnormal lab results 11/15/21 11/15/21 11/15/21 Range/Units 11:52 11:52 11:52 RBC 3.10 L (4.20-5.50) X10*6/uL Hgb 7.7 L (12.0-16.0) g/dl Hct 25.7 L (37.0-47.0) % MCH 24.8 L (27.0-33.0) pg MCHC 30.0 L (31.0-35.0) g/dl RDW 26.7 H (11.0-16.0) % MPV 9.2 L (9.4-12.3) fL Immature Gran % (Auto) 0.5 H (0.0-0.4) % Neut % (Auto) 77.8 H (45-73) % Lymph % (Auto) 12.0 L (20-40) % Lymph # (Auto) 0.8 L (1.2-4.9) X10*3/uL Immature Retic Fraction 20.4 H (3.0-15.9) % Sodium 147 H (135-145) mmol/L Carbon Dioxide 32 H (22-29) mmol/L BUN 28 H D (9-16) mg/dL POC Glucose (60-115) mg/dL Random Glucose 54 L* (60-115) mg/dL Total Bilirubin 1.2 H (0.0-1.0) mg/dL AST 36 H D (5-31) U/L ALT 53 H (0-31) U/L Alkaline Phosphatase 140 H (39-117) U/L Lactate Dehydrogenase 323 H (122-220) U/L B-Natriuretic Peptide 201 H (<100) pg/mL Total Protein 5.7 L (6.5-8.0) g/dL Albumin 3.1 L (3.5-5.0) g/dL Prealbumin 17.0 L (20-40) mg/dL TSH 4.93 H (0.32-4.0) uIU/mL Crossmatch 11/15/21 11/15/21 11/16/21 Range/Units 12:01 13:22 05:32 RBC (4.20-5.50) X10*6/uL Hgb 10.8 L D (12.0-16.0) g/dl Hct 35.2 L D (37.0-47.0) % MCH (27.0-33.0) pg MCHC (31.0-35.0) g/dl RDW (11.0-16.0) % MPV (9.4-12.3) fL Immature Gran % (Auto) (0.0-0.4) % Neut % (Auto) (45-73) % Lymph % (Auto) (20-40) % Lymph # (Auto) (1.2-4.9) X10*3/uL Immature Retic Fraction (3.0-15.9) % Sodium (135-145) mmol/L Carbon Dioxide (22-29) mmol/L BUN (9-16) mg/dL POC Glucose 118 H (60-115) mg/dL Random Glucose (60-115) mg/dL Total Bilirubin (0.0-1.0) mg/dL AST (5-31) U/L ALT (0-31) U/L Alkaline Phosphatase (39-117) U/L Lactate Dehydrogenase (122-220) U/L B-Natriuretic Peptide (<100) pg/mL Total Protein (6.5-8.0) g/dL Albumin (3.5-5.0) g/dL Prealbumin (20-40) mg/dL TSH (0.32-4.0) uIU/mL Crossmatch See Detail 11/16/21 Range/Units 05:32 RBC (4.20-5.50) X10*6/uL Hgb (12.0-16.0) g/dl Hct (37.0-47.0) % MCH (27.0-33.0) pg MCHC (31.0-35.0) g/dl RDW (11.0-16.0) % MPV (9.4-12.3) fL Immature Gran % (Auto) (0.0-0.4) % Neut % (Auto) (45-73) % Lymph % (Auto) (20-40) % Lymph # (Auto) (1.2-4.9) X10*3/uL Immature Retic Fraction (3.0-15.9) % Sodium (135-145) mmol/L Carbon Dioxide 34 H (22-29) mmol/L BUN 37 H (9-16) mg/dL POC Glucose (60-115) mg/dL Random Glucose 33 L* (60-115) mg/dL Total Bilirubin 1.7 H (0.0-1.0) mg/dL AST (5-31) U/L ALT 46 H (0-31) U/L Alkaline Phosphatase 134 H (39-117) U/L Lactate Dehydrogenase (122-220) U/L B-Natriuretic Peptide (<100) pg/mL Total Protein 5.4 L (6.5-8.0) g/dL Albumin 2.9 L (3.5-5.0) g/dL Prealbumin (20-40) mg/dL TSH (0.32-4.0) uIU/mL Crossmatch H & H 11/15/21 11/16/21 Range/Units 11:52 05:32 Hgb 7.7 L 10.8 L D (12.0-16.0) g/dl Hct 25.7 L 35.2 L D (37.0-47.0) % Coagulation 11/15/21 Range/Units 11:52 INR 1.0 (0.9-1.1) All other labs normal. Assessment and Plan (1) Closed intertrochanteric fracture of femur: Status: Acute Plan I discussed the case with Dr. Mc and explained the extent of the injury to the patient and options available which include surgical intervention. I explained the procedure in detail along with the length of recovery and rehab course. I explained the risk, benefits and alternatives. Risk including, but not limited to infection, blood clots, bleeding, non union or malunion and nerve/tissue damage to surrounding areas. I answered all their questions and with their understanding they have consented to move forward with Operative Fixation of the left hip. The patient will be T&S, med clearance obtained and NPO after midnight. Quality Stroke Does the patient have a stroke diagnosis?: No VTE Prior VTE?: No VTE Risk Level:: Medical - moderate - high VTE Device Contraindication: N/A - Device Ordered VTE Drug Contraindication: N/A - Med Ordered Procedures Date of Service Date of Service: 11/16/21
[2021-11-16 08:12] LABS: Glucose, Whole Blood 130 mg/dL (60-115)
--- NOTE | 2021-11-16 08:30 | CA_ITS ---
Transthoracic Echocardiogram Patient (Last, First, Middle): Karen Long A Gender: Female Date of : 1960 Age: 61 Procedure Date: 11/16/2021 Procedure Type: Transthoracic Echocardiogram Location: S3E Height: 157.48 cm Weight: 40.82 kg BSA: 1.36 m2 Heart Rate: bpm BP: 139 / 86 mmHg Supervisor Insulation: Referring MD: Sol Ro MD Symptoms: elevated BNP, fatigue Study Quality: Fair ECG Rhythm: Sinus with extra beats Conclusions: - Normal left ventricular size and systolic function. - E/E prime ratio is between 8 and 15 consistent with indeterminate filling pressures. - Normal right ventricular cavity size and systolic function. - No significant valvular or pericardial pathology. Findings Left Ventricle Normal left ventricular size and systolic function. There is mildly increased left ventricular wall thickness. The visually estimated ejection fraction is between 55-60%. There is no evidence of regional wall motion abnormalities. Abnormal diastolic function is noted. Spectral Doppler is indicative of an impaired relaxation filling pattern. E/E prime ratio is between 8 and 15 consistent with indeterminate filling pressures. Right Ventricle Normal right ventricular cavity size and systolic function. Atria The left atrium is moderately dilated. Aortic Valve Normal aortic valve structure and function. There is no aortic valve stenosis. There is no aortic valve regurgitation. Mitral Valve Normal mitral valve structure and function. There is trace mitral valve regurgitation. There is no mitral valve stenosis. Pulmonic Valve Normal pulmonic valve structure and function. There is trace pulmonic valve regurgitation. Tricuspid Valve Normal tricuspid valve structure and function. There is trace tricuspid valve regurgitation. Tricuspid regurgitation envelope is inadequate for calculation of right ventricular systolic pressure. Normal right atrial pressure. Great Vessels All visible segments of the aorta are normal in size. The visualized portions of the pulmonary artery and branches are normal. Venous The inferior vena cava is normal in size and collapses greater than 50% with inspiration. Pericardium/Pleural There is no evidence of pericardial effusion. Prior Study Comparison No prior study available for comparison. Measurements 2D Linear Measurements IVSd: 1.00 0.6-0.9/0.6-1.0 cm LVIDd: 3.97 3.9-5.3/4.2-5.9 cm LVIDd Index: 2.92 2.4-3.2/2.2-3.1 cm/m2 LVIDs: 2.66 2.0-3.6 cm LVPWd: 1.03 0.7-1.1 cm Ao Root: 2.30 2.1-3.5 cm LA Diam: 3.20 2.7-3.8/3.0-4.0 cm LAIDs Index: 2.35 1.5-2.3 cm/m2 LV Mass: 159.12 67-162/88-224 g LV Mass Index: 117.00 43-95/49-115 g/m2 LVOT Diam: 1.90 3.0+(-)1.3 cm 2D Systolic Function EF 4C: 57.60 >55% EF 2C: 54.50 >55% EF BiP: 55.00 >55% Mitral Valve MV Pk E: 0.52 MV PK A: 0.65 MV Decel Time: 176.00 E/A: 0.80 E'Lateral: 6.42 E'Medial: 4.90 E/E' Med: 10.70 E/E' Lat: 8.10 PHT: 52.00 MVA PHT: 4.23 Decel [place]: 2.97 Aortic Valve AoV Pk Nba: 1.16 AoV Mn Nba: 0.76 AoV VTI: 0.27 AoV Pk Grad: 5.00 Aov Mn Grad: 3.00 MAR[place] Cont.VTI: 1.47 LVOT LVOT Pk Nba: 0.71 LVOT Mn Nba: 0.47 LVOT VTI: 0.14 LVOT Pk Grad: 2.00 LVOT Mn Grad: 1.00 LVOT Diam: 1.90 LVOT Area: 2.84 Diastolic Function MV Pk E: 0.52 MV Pk A: 0.65 E/A: 0.80 E'Medial: 4.90 E/E' Med: 10.70 E' Laterial: 6.42 E/E' Lat: 8.10 Right Ventricle TAPSE (mm): 20.00 TVS' Nba: 13.00 Tricuspid Valve TR Pk Nba: 1.77 TR Pk Grad: 13.00 Great Vessels Aorta Ao Root-2D: 2.30 2.0-3.7 cm Pulmonary Valve PV Pk Nba: 0.72 Peak PV Grad: 2.00 Updated in Other Vendor System with Status of Final Abdelrahman Trujillo MD electronically signed on 11/16/2021 9:07:28 AM with status of Final
--- NOTE | 2021-11-16 08:54 | P.CONAN_ITS ---
HPI - Anesthesia Eval Consult details Narrative: 61 yo female patient for left femoral IM nailing PMFSH Active Problems Active Problems: All Active Problems (Updated 11/15/21 @ 13:07 by Isela De Jesus MD) Closed intertrochanteric fracture of femur (Acute) Anemia (Acute) S/p 1unit PRBC 11/15/21. Hct 35.2 though still dehydrated so probably lower Sob with exertion Fatigue. Denies chest pain Cachectic Hypoglycemia this am 33. Received 25g glucose. Repeat BS 130 Low albumin Increased bilirubin, LFTs abnormal Past Medical History Medical History Anemia Functional capacity: independent ambulation Family History Family history of problems with anesthesia: No Surgical History Surgical History (Updated 11/16/21 @ 10:09 by Mahogany Caicedo MD) H/O foot surgery History of Problems with Anesthesia: No Social History Social History Household Members: Other Household Members Other:: mother Housing: House Do you presently have visiting nurse or other home services: No Alcohol intake: never Patient Tobacco Use Status: Former Tobacco user Tobacco use type: Cigarette service: Yes Current occupational status: employed Meds Allergies Allergy/AdvReac Type Severity Reaction Status Date / Time No Known Allergies Allergy Unverified 06/24/20 14:42 [No Known Allergies*] Active Medications: Current Medications Acetaminophen (Acetaminophen 325 Mg Tablet) 650 mg PO Q6H PRN PRN Reason: Pain, Mild (Pain Scale 1-3) Cyanocobalamin (Cyanocobalamin (Vitamin B-12) 500 Mcg Tablet) 500 mcg PO DAILY [facility] Last Admin: 11/16/21 07:32 Dose: Not Given Documented by: Ferrous Sulfate (Ferrous Sulfate 324 Mg Tablet.Dr) 324 mg PO DAILY COUNT [facility]CLUDES [facility] Last Admin: 11/16/21 07:32 Dose: Not Given Documented by: Dextrose/Lactated Ringer's (D5lr) 1,000 mls @ 80 mls/hr IVCONT .[id number] COUNT INCLUDES THE [facility] Last Admin: 11/16/21 07:49 Dose: 80 mls/hr Documented by: Morphine Sulfate (Morphine Sulfate 2 Mg/Ml Cartridge) 2 mg IVPUSH Q4H PRN; Protocol PRN Reason: severe pain Last Admin: 11/16/21 07:49 Dose: 2 mg Documented by: Multivitamins/Vitamin C (Multivitamin Tablet) 1 tab PO DAILY COUNT [facility]CLUDES [facility] Last Admin: 11/16/21 07:32 Dose: Not Given Documented by: Ondansetron HCl (Ondansetron Hcl 4 Mg/2 Ml Vial) 4 mg IVPUSH Q8H PRN PRN Reason: Nausea and Vomiting Last Admin: 11/15/21 14:58 Dose: 4 mg Documented by: Pharmacy Consult (Consult Rx Perform Med Rec) 1 each MISCELLANE ONCE PRN PRN Reason: Consult order Sodium Chloride (0.9 % Sodium Chloride Flush 3 Ml Syringe) 3 ml IVFLUSH QSHIFT COUNT INCLUDES THE [facility] Last Admin: 11/16/21 07:49 Dose: 3 ml Documented by: Vitamin D (Cholecalciferol (Vitamin D3) 25 Mcg Tablet) 25 mcg PO DAILY COUNT INCLUDES [facility] Last Admin: 11/16/21 07:32 Dose: Not Given Documented by: Home Medications Medication Instructions Recorded Confirmed Last Taken Type cholecalciferol (vitamin D3) 25 25 mcg PO DAILY 11/15/21 11/15/21 11/14/21 History mcg (1,000 unit) capsule (Vitamin D3) cyanocobalamin (vitamin B-12) 500 500 mcg PO DAILY 11/15/21 11/15/21 11/14/21 History mcg tablet [id number] 8 mg-folic 1 tab PO DAILY 11/15/21 11/15/21 11/14/21 History ac 400 mcg-vit K 10 mcg chew tablet (Centrum Chewables) Exam Exam Date and Time: November 16, 2021 0854 Height,Weight and Vital Signs: Height 5 ft 2 in Weight 40.823 kg Last Vital Signs Temp 97.9 F 11/16/21 07:35 Pulse 60 11/16/21 07:35 Resp 18 11/16/21 07:35 BP 111/57 L 11/16/21 07:35 Pulse Ox 100 11/16/21 07:35 Pertinent Lab Results Pertinent Lab Results: Laboratory Tests 11/15/21 11/15/21 11/15/21 11:52 11:52 11:52 WBC 6.6 RBC 3.10 L Hgb 7.7 L Hct 25.7 L MCV 82.9 MCH 24.8 L MCHC 30.0 L RDW 26.7 H Plt Count 361 MPV 9.2 L Immature Gran % (Auto) 0.5 H Neut % (Auto) 77.8 H Lymph % (Auto) 12.0 L [place] % (Auto) 9.2 Eos % (Auto) 0.0 Baso % (Auto) 0.5 Lymph # (Auto) 0.8 L [place] # (Auto) 0.6 Eos # (Auto) 0.0 Baso # (Auto) 0.0 Abs Immat Gran (auto) 0.03 Absolute Neuts (auto) 5.1 Absolute Nucleated RBC 0.000 Nucleated RBC % (auto) 0.0 Absolute Retic 0.043 Percent Retic 1.4 Immature Retic Fraction 20.4 H Retic Hgb Equivalent 32.2 PT 11.0 INR 1.0 Sodium 147 H Potassium 3.8 D Chloride 103 Carbon Dioxide 32 H Anion Gap 16 BUN 28 H D Creatinine 0.82 Estim Creat Clear Calc 45.8 Estimated GFR > 60 POC Glucose Random Glucose 54 L* Calcium 10.0 D Magnesium 2.0 Iron 67 TIBC 309 % Saturation 22 Unsat Iron Binding 242 Ferritin 33 Total Bilirubin 1.2 H Direct Bilirubin 0.4 AST 36 H D ALT 53 H Alkaline Phosphatase 140 H Lactate Dehydrogenase 323 H B-Natriuretic Peptide Total Protein 5.7 L Albumin 3.1 L Prealbumin 17.0 L TSH 4.93 H Free T4 0.83 COVID-19 ([facility]) COVID-19 Clin Com Blood Type Antibody Screen Crossmatch 11/15/21 11/15/21 11/15/21 11:52 11:52 12:01 WBC RBC Hgb Hct MCV MCH MCHC RDW Plt Count MPV Immature Gran % (Auto) Neut % (Auto) Lymph % (Auto) [place] % (Auto) Eos % (Auto) Baso % (Auto) Lymph # (Auto) [place] # (Auto) Eos # (Auto) Baso # (Auto) Abs Immat Gran (auto) Absolute Neuts (auto) Absolute Nucleated RBC Nucleated RBC % (auto) Absolute Retic Percent Retic Immature Retic Fraction Retic Hgb Equivalent PT INR Sodium Potassium Chloride Carbon Dioxide Anion Gap BUN Creatinine Estim Creat Clear Calc Estimated GFR POC Glucose Random Glucose Calcium Magnesium Iron TIBC % Saturation Unsat Iron Binding Ferritin Total Bilirubin Direct Bilirubin AST ALT Alkaline Phosphatase Lactate Dehydrogenase B-Natriuretic Peptide 201 H Total Protein Albumin Prealbumin TSH Free T4 COVID-19 ([facility]) Negative COVID-19 Clin Com See Note Blood Type O Positive Antibody Screen NEGATIVE Crossmatch See Detail 11/15/21 11/16/21 11/16/21 13:22 05:32 05:32 WBC RBC Hgb 10.8 L D Hct 35.2 L D MCV MCH MCHC RDW Plt Count MPV Immature Gran % (Auto) Neut % (Auto) Lymph % (Auto) [place] % (Auto) Eos % (Auto) Baso % (Auto) Lymph # (Auto) [place] # (Auto) Eos # (Auto) Baso # (Auto) Abs Immat Gran (auto) Absolute Neuts (auto) Absolute Nucleated RBC Nucleated RBC % (auto) Absolute Retic Percent Retic Immature Retic Fraction Retic Hgb Equivalent PT INR Sodium 144 Potassium 4.3 Chloride 102 Carbon Dioxide 34 H Anion Gap 12 BUN 37 H Creatinine 0.77 Estim Creat Clear Calc 48.8 Estimated GFR > 60 POC Glucose 118 H Random Glucose 33 L* Calcium 9.5 Magnesium Iron TIBC % Saturation Unsat Iron Binding Ferritin Total Bilirubin 1.7 H Direct Bilirubin AST 30 ALT 46 H Alkaline Phosphatase 134 H Lactate Dehydrogenase B-Natriuretic Peptide Total Protein 5.4 L Albumin 2.9 L Prealbumin TSH Free T4 COVID-19 ([facility]) [employer] Blood Type Antibody Screen Crossmatch 11/16/21 08:07 WBC RBC Hgb Hct MCV MCH MCHC RDW Plt Count MPV Immature Gran % (Auto) Neut % (Auto) Lymph % (Auto) [place] % (Auto) Eos % (Auto) Baso % (Auto) Lymph # (Auto) [place] # (Auto) Eos # (Auto) Baso # (Auto) Abs Immat Gran (auto) Absolute Neuts (auto) Absolute Nucleated RBC Nucleated RBC % (auto) Absolute Retic Percent Retic Immature Retic Fraction Retic Hgb Equivalent PT INR Sodium Potassium Chloride Carbon Dioxide Anion Gap BUN Creatinine Estim Creat Clear Calc Estimated GFR POC Glucose 130 H Random Glucose Calcium Magnesium Iron TIBC % Saturation Unsat Iron Binding Ferritin Total Bilirubin Direct Bilirubin AST ALT Alkaline Phosphatase Lactate Dehydrogenase B-Natriuretic Peptide Total Protein Albumin Prealbumin TSH Free T4 COVID-19 ([facility]) [employer] Blood Type Antibody Screen Crossmatch Date of Service: 11/15/21 Procedure: 12 lead EKG: SB 55 Date of Service: 11/16/21 Procedure(s): CA echo transthoracic complete Transthoracic Echocardiogram Symptoms:? elevated BNP, fatigue Study Quality: ? Fair ECG Rhythm:? ? ? Sinus with extra beats ?? ? Conclusions: - Normal left ventricular size and systolic function.? - E/E prime ratio is between 8 and 15 consistent with? indeterminate filling pressures. ? - Normal right ventricular cavity size and systolic function.? ? - No significant valvular or pericardial pathology.? Findings Left Ventricle Normal left ventricular size and systolic function. There is mildly increased left ventricular wall thickness.? The visually estimated ejection fraction is between 55-60%.? There is no evidence of regional wall motion abnormalities. Abnormal diastolic function is noted.? Spectral Doppler is indicative of an impaired relaxation filling pattern.? E/E prime ratio is between 8 and 15 consistent with indeterminate filling pressures. Airway Mallampati Class: II (Outgrowths hard palate towards midline, torus , outgrowths lower jaw towards midline) TM Dist: >3cm Loose/Missing/Broken Teeth: No (4 caps top front) Heart: RRR Lungs: CTAB Assessment and Plan Assessment Anesthesia Assessment: Anesthesia Plan Discussed and Chart Reviewed Final Anesthetic Review Family History of Problems with Anesthesia: No History of Problems with Anesthesia: No NPO: Yes ASA Class: III Final Preanesthetic Review: No Changes in Pt Med Stat, Meds/Allgs Chart R betzaida, Consent Obtained/Reviewed and Anes Risks/Benef Reviewed Patient Risk: Intermediate Procedure Risk: Intermediate Assessment/Block/Sedation in SS: Assess/Block/Sedation- Anesthetic Plan Anesthetic Plan: GA Disposition: Standard PACU and Inp. Admit - Standard Bed
--- NOTE | 2021-11-16 09:46 | MHC.SHP ---
Pre-Procedural Eval Section A Date of Service: 11/16/21 The patient is an INPATIENT: No Changes since office visit: Yes Patient answered all questions; No Cold of Flu in the past 2 weeks, No New Medical Problems and No Changes in Medication The History & Physical has been completed within 30 days and I have reviewed it.: Yes Section B Chief Complaint: L hip fx Allergies: Allergies Allergy/AdvReac Type Severity Reaction Status Date / Time No Known Allergies Allergy Unverified 06/24/20 14:42 [No Known Allergies*] Plan I have reviewed the history and physical and performed a pertinent physical examination on my patient. No changes have occurred unless specified.
[2021-11-16] MEDS: Lactated Ringers 1,000 ML 100 ML IVCONT (10:06)
--- NOTE | 2021-11-16 11:44 | P.BOP_ITS ---
Brief Operative Note Date of Service: 11/16/21 Pre-op diagnosis: left hip IT fracture Post-op diagnosis: same Procedure: Left hip CMN Implants: [place] 300 x 11 125 deg with 90 mm hip screw and 37.5 distal interlock Surgeon: Prakash Mc MD Anesthesia: GETA Was an Speech Teacher used for this Procedure?: Yes Speech Teacher: Jaye Ramirez Estimated blood loss (mL): 50 IV fluids (mL): 600 Pathology: none sent Condition: stable Disposition: PACU
--- NOTE | 2021-11-16 11:47 | W.PM.OPN ---
Operative Note Operative Note Date of Service: 11/16/21 Narrative: Date of Service: 11/16/21 Pre-op diagnosis: left hip IT fracture Post-op diagnosis: same Procedure: Left hip CMN Implants: [place] 300 x 11 125 deg with 90 mm hip screw and 37.5 distal interlock Surgeon: Prakash Mc MD Anesthesia: GETA Was an Actuarial Consultant used for this Procedure?: Yes Actuarial Consultant: Jaye Ramirez Estimated blood loss (mL): 50 IV fluids (mL): 600 Pathology: none sent Condition: stable Disposition: PACU Procedure in detail: Patient was brought to the operating room and prepped and draped in standard sterile fashion. Time-out was called to identify proper site procedure proper surgeon and IV antibiotics per weight were administered. She was positioned on the fracture table and a traction and slight internal rotation were performed and biplanar fluoroscopy confirmed initial fracture reduction. I then made a stab incision proximal to the greater trochanter in using a guidewire made a entry point just lateral to the tip of the greater trochanter and placed a guidewire into the femoral metadiaphysis. I then over-reamed with 15 mm Reamer placed my ball-tip guidewire down distally in the femur and measured my length. I selected a [id number] deg nail and reamed up to a 13. I then placed a the nail. I then turned my attention to the hip screw where I used a guidewire and a tip apex distance of less than 1.5 measured my hip screw. I then pre drilled and placed a hip screw using biplanar fluoroscopy. Once I was satisfied with the position of the hip screw I turned my attention to the distal aspect of the nail. Using perfect [place] technique I placed 1 static distal interlocking screw in standard AO technique. I then removed all I then placed my set screw proximally and removed all extraneous instrumentation. Final biplanar radiographs were taken. I was satisfied with the position of the hardware and the fracture reduction. She has a BMI of 16 and care was taken to avoid proud hardware as much as possible. I then copiously irrigated closed with absorbable sutures nathan and injected 30 mL of into the area of the incisions. Traction was let down patient was placed in sterile dressing awakened from anesthesia brought to recovery room stable condition there were no known complications.
--- NOTE | 2021-11-16 12:50 | MHC.CM.PN ---
EMR REVIEWED, L HIP REPAIR TODAY, CM RECEIVED MESSAGE FROM [facility] ASKING FOR ORTHO TO SIGN PT'S VNA ORDERS D/T PT NOT BEING ACTIVE W/PCP, THEY ALSO HAD CONCERNS [facility] WOULD APPROVE SERVICES D/T NOT BEING SEEN, CM ATTEMPTED TO CALL CONTACT NISA RICHARDS [phone] SEVERAL TIMES W/OUT SUCCESS, MESSAGE COMING UP DUE TO HIGH CALL VOLUME PLEASE CALL BACK LATER AND LINE DISCONNECTS, CM DID REACH [facility] AT [phone] AND SHE REPORTED THE [facility] WILL NOT APPROVE ANY HOME SERVICES UNLESS SHE HAS BEEN SEEN BY A VA PROVIDER WITHIN 2 YRS, PER DEBRA PT HAS NOT BEEN SEEN SINCE 2017. CM WILL MEET W/PT ONCE SHE RETURNS FROM SURGERY TO DISCUSS PLAN.
[2021-11-16] MEDS: Acetaminophen 325 MG TABLET 650 MG PO (13:06)
[2021-11-16 13:20] LABS: Vitamin B12 883 pg/mL (200-900)
[2021-11-16] MEDS: oxyCODONE HCl Immed Release 5 MG TABLET PO (13:40)
--- NOTE | 2021-11-16 15:31 | HO.PM.IMPN ---
Subjective Subjective Date of Service: 11/16/21 Interval History: Tolerated transfusion of 1u pRBCs Pain controlled To OR today Review of Systems Review of Systems: Yes all other systems are reviewed and are negative Physical Exam Vital Signs: Vital Signs: Last Vital Signs Temp 96.9 F 11/16/21 14:42 Pulse 58 11/16/21 14:42 Resp 18 11/16/21 14:42 BP 156/77 H 11/16/21 14:42 Pulse Ox 100 11/16/21 14:42 BMI result Body Mass Index 16.5 Gen: NAD, cachectic with bitemporal wasting HEENT: sclera anicteric, moist mucus membranes Neck: supple Lungs: clear to auscultation bilaterally Heart: bradycardic, no murmurs Abd: soft, non-tender, non-distended Ext: no edema, multiple abrasions to L leg, multiple ecchymoses on extremities, LLE externally rotated Skin: warm/well-perfused Neuro: alert and oriented x3, no focal findings Psych: appropriate affect Objective Data Active Medications Acetaminophen (Acetaminophen 325 Mg Tablet) 650 mg PO Q6H PRN PRN Reason: Pain, Mild (Pain Scale 1-3) Cyanocobalamin (Cyanocobalamin (Vitamin B-12) 500 Mcg Tablet) 500 mcg PO DAILY [facility] Last Admin: 11/16/21 07:32 Dose: Not Given Documented by: JOSE Non-Admin Reason: NPO Ferrous Sulfate (Ferrous Sulfate 324 Mg Tablet.) 324 mg PO DAILY [facility] Last Admin: 11/16/21 07:32 Dose: Not Given Documented by: JOSE Non-Admin Reason: NPO Dextrose/Lactated Ringer's (D5lr) 1,000 mls @ 80 mls/hr IVCONT .[id number] [facility] Last Infusion: 11/16/21 14:58 Dose: 80 mls/hr Documented by: JOSE Cefazolin Sodium 2 gm/ Sodium (Chloride) 50 mls @ 100 mls/hr IV POSTOP ONE Stop: 11/16/21 17:29 Morphine Sulfate (Morphine Sulfate 2 Mg/Ml Cartridge) 2 mg IVPUSH Q4H PRN; Protocol PRN Reason: severe pain Last Admin: 11/16/21 13:23 Dose: 2 mg Documented by: LEIA Multivitamins/Vitamin C (Multivitamin Tablet) 1 tab PO DAILY [facility] Last Admin: 11/16/21 07:32 Dose: Not Given Documented by: JOSE Non-Admin Reason: NPO Ondansetron HCl (Ondansetron Hcl 4 Mg/2 Ml Vial) 4 mg IVPUSH Q8H PRN PRN Reason: Nausea and Vomiting Last Admin: 11/15/21 14:58 Dose: 4 mg Documented by: NANCY Sodium Chloride (0.9 % Sodium Chloride Flush 3 Ml Syringe) 3 ml IVFLUSH QSHIFT [facility] Last Admin: 11/16/21 15:14 Dose: Not Given Documented by: MUA Non-Admin Reason: IV Running Vitamin D (Cholecalciferol (Vitamin D3) 25 Mcg Tablet) 25 mcg PO DAILY [facility] Last Admin: 11/16/21 07:32 Dose: Not Given Documented by: JOSE Non-Admin Reason: NPO Labs CBC & Chem 7: 11/16/21 05:32 11/16/21 05:32 Labs: Laboratory Results - last 24 hr 11/15/21 11/15/21 11/16/21 11:52 11:52 05:32 Anion Gap 12 Estim Creat Clear Calc 48.8 Estimated GFR > 60 POC Glucose Random Glucose 33 L* Calcium 9.5 Total Bilirubin 1.7 H AST 30 ALT 46 H Alkaline Phosphatase 134 H Total Protein 5.4 L Albumin 2.9 L Vitamin B12 883 Free T4 0.83 11/16/21 08:07 Anion Gap Estim Creat Clear Calc Estimated GFR POC Glucose 130 H Random Glucose Calcium Total Bilirubin AST ALT Alkaline Phosphatase Total Protein Albumin Vitamin B12 Free T4 TTE 11/16/21 ?Normal left ventricular size and systolic function.? - E/E prime ratio is between 8 and 15 consistent with? indeterminate filling pressures. ? - Normal right ventricular cavity size and systolic function.? ? - No significant valvular or pericardial pathology.? Assessment and Plan (1) Closed intertrochanteric fracture of femur: Status: Acute (2) Anemia: Status: Acute Plan hospital d#2 61yo F with recently diagnosed anemia, transaminasemia, peripheral edema, and hypoalbuminemia presenting after mechanical fall in which she sustained a left femoral intertrochanteric fracture. # intertrochanteric fracture - plan operative fixation today by Ortho # anemia, normocytic - transfused 1u pRBCs 11/15/21 - continue iron repletion PO # transaminasemia - AST/ALT improved.? US with normal liver 11/07/21.? HBV/HCV status pending # hypoglycemia - resolved # elevated BNP/peripheral edema - TTE as above. not in decompensated HF. On furosemide for edema management. # hyperNa - mild, resolved # severe protein/calorie malnutrition - supplements # VTE ppx - SCDs Quality Stroke Does the patient have a stroke diagnosis?: No VTE Prior VTE?: No VTE Risk Level:: Medical - moderate - high VTE Device Contraindication: N/A - Device Ordered VTE Drug Contraindication: N/A - Med Ordered
--- NOTE | 2021-11-16 16:03 | MHC.CLN ---
NUTRITION CONSULT DUE TO UNDERWEIGHT. DOES NOT WANT SUPPLEMENTS. 8.5% WEIGHT LOSS X 2 MONTHS. HIGH ACTIVITY LEVEL. SUSPECT ORAL INTAKE NOT MEETING HIGH ENERGY/PROTEIN NEEDS. VISITED PATIENT POST SURGERY. ASKED FOR A SMALL AMOUNT OF FOOD /DRINK FOR DINNER. MEDICAL DX SEVERE PROTEIN CALORIE MALNUTRITION. NUTRITION DX. NON SEVERE MALNUTRITION IN THE CONTEXT OF SOCIAL BEHAVIORAL/ENVIRONMENTAL CIRCUMSTANCES. FOLLOW INTAKE.
[2021-11-16] MEDS: ceFAZolin Sodium/Dextrose,Iso 2 GM/50 ML PIGGYBACK IV (18:24)
[2021-11-17] MEDS: 0.9 % Sodium Chloride Flush 3 ML SYRINGE IVFLUSH ×3 (00:23→17:43)
--- NOTE | 2021-11-17 00:30 | PC.NURSE ---
Patient does not want her mother to be called or give information
[2021-11-17] MEDS: Morphine Sulfate 2 MG/ML CARTRIDGE IVPUSH ×4 (02:08→20:09)
[2021-11-17 03:14] VITALS: RESP 18
[2021-11-17 06:10] LABS: Hematocrit 31.5 % (37.0-47.0); Hemoglobin 9.7 g/dl (12.0-16.0)
--- NOTE | 2021-11-17 06:43 | HO.POSTANES ---
Post Anesthesia Evaluation Post Anesthesia Evaluation Vital Signs: Vital Signs Temp Pulse Resp BP Pulse Ox 11/17/21 03:14 18 11/16/21 23:43 96.7 F L 65 14 136/78 98 11/16/21 21:46 77 132/84 Anesthesia: General Mental Status: Awake Pain Control: Satisfactory Nausea/Vomiting: None Hydration: Adequate Anesthesia-Related Issues: No Anes. Related Issues
[2021-11-17 07:37] LABS: Anion Gap 12 (12-20); Blood Urea Nitrogen 36 mg/dL (9-16); Calcium 8.4 mg/dL (8.4-10.2); Carbon Dioxide 30 mmol/L (22-29); Chloride 101 mmol/L (96-108); Creatinine Clr Calc Pharmacy 50.7; Estimated Glomerular Filt Rate > 60; Glucose Random 57 mg/dL (60-115); Potassium 4.2 mmol/L (3.3-5.1); Sodium 139 mmol/L (135-145)
[2021-11-17] MEDS: Cholecalciferol (Vitamin D3) 25 MCG TABLET PO (07:48)
[2021-11-17] MEDS: Ferrous Sulfate 324 MG TABLET.DR PO (07:48)
[2021-11-17] MEDS: Multivitamin TABLET 1 TAB PO (07:48)
[2021-11-17] MEDS: Cyanocobalamin (Vitamin B-12) 500 MCG TABLET PO (07:48)
[2021-11-17 08:00] VITALS: BP 146/80; PULSE 75; RESP 20; TEMP 36.3; O2SAT 95
[2021-11-17 08:40] LABS: Glucose, Whole Blood 76 mg/dL (60-115)
--- NOTE | 2021-11-17 09:07 | MHC.CM.PN ---
EMR REVIEWED, PT CONT'S TO RECEIVE IV PAIN MEDS, CASE DISCUSSED W/HOSPITALIST WHO REPORTS PT SHOUD BE READY FOR D/C TOMORROW 11/18/21, [facility] UPDATED VIA [employer].
--- NOTE | 2021-11-17 09:12 | PM.PNORT ---
Subjective Subjective Date of Service: 11/17/21 Interval history: POD1 status post left hip IM nail. Patient was ambulating with physical therapy. Reports pain is well managed. No overnight events. No additional complaints. Physical Exam Vital Signs: Vital Signs: Last Vital Signs Temp 96.7 F L 11/16/21 23:43 Pulse 65 11/16/21 23:43 Resp 18 11/17/21 03:14 BP 136/78 11/16/21 23:43 Pulse Ox 98 11/16/21 23:43 BMI result Body Mass Index 16.5 Const: General: cooperative, healthy appearing and no acute distress Resp: Effort & Inspection: normal respiratory effort and able to speak in complete sentences Cardio: Rate: regular rate Peripheral pulses: Peripheral pulses 2+ throughout GI: Palpation (GI): Soft to palpation Skin: Lesions: no lesions Rashes: no rashes Extrem: Other: Left hip incision sites are well approximated. [place] intact. Dressing changed. Patient is ambulating. NVI. Procedures Date of Service Date of Service: 11/17/21 Progress Note: A&P Assessment and plan (1) Closed intertrochanteric fracture of femur: Status: Acute Assessment and Plan: Continue pain mgmnt Begin asa for dvt ppx begin PT for left hip IM Nail - WBAT Dispo planning-Pending PT eval, pain mgmnt Fall Risk Details Current Medications: Current Medications Acetaminophen (Acetaminophen 325 Mg Tablet) 650 mg PO Q6H PRN PRN Reason: Pain, Mild (Pain Scale 1-3) Cyanocobalamin (Cyanocobalamin (Vitamin B-12) 500 Mcg Tablet) 500 mcg PO DAILY [facility] Last Admin: 11/17/21 07:48 Dose: 500 mcg Documented by: Enoxaparin Sodium (Enoxaparin Sodium 40 Mg/0.4 Ml Syringe) 40 mg SUBCUT Q24H [facility] Ferrous Sulfate (Ferrous Sulfate 324 Mg Tablet.) 324 mg PO DAILY [facility] Last Admin: 11/17/21 07:48 Dose: 324 mg Documented by: Dextrose/Lactated Ringer's (D5lr) 1,000 mls @ 80 mls/hr IVCONT .[id number] [facility] Last Infusion: 11/17/21 00:58 Dose: Infused Documented by: Morphine Sulfate (Morphine Sulfate 2 Mg/Ml Cartridge) 2 mg IVPUSH Q4H PRN; Protocol PRN Reason: severe pain Last Admin: 11/17/21 06:48 Dose: 2 mg Documented by: Multivitamins/Vitamin C (Multivitamin Tablet) 1 tab PO DAILY [facility] Last Admin: 11/17/21 07:48 Dose: 1 tab Documented by: Ondansetron HCl (Ondansetron Hcl 4 Mg/2 Ml Vial) 4 mg IVPUSH Q8H PRN PRN Reason: Nausea and Vomiting Last Admin: 11/15/21 14:58 Dose: 4 mg Documented by: Sodium Chloride (0.9 % Sodium Chloride Flush 3 Ml Syringe) 3 ml IVFLUSH QSHIFT [facility] Last Admin: 11/17/21 07:49 Dose: 3 ml Documented by: Vitamin D (Cholecalciferol (Vitamin D3) 25 Mcg Tablet) 25 mcg PO DAILY [facility] Last Admin: 11/17/21 07:48 Dose: 25 mcg Documented by: Time Spent With Patient Time: Total time spent is greater than 50% in coordination of care (as documented) at patient's floor/unit and/or counseling patient: Time with patient: less than 15 minutes Quality Stroke Does the patient have a stroke diagnosis?: No VTE Prior VTE?: No VTE Risk Level:: Medical - moderate - high VTE Device Contraindication: N/A - Device Ordered VTE Drug Contraindication: N/A - Med Ordered
--- NOTE | 2021-11-17 09:13 | MHC.CM.PN ---
CM ATTEMPTED TO CALL CONTACT NISA RICHARDS AT 9:10AM [phone] TO SEE IF THERE WAS ANYTHING WE COULD DO TO GET PT APPROVED FOR HOME PT, NISA'S LINE IS SET TO FAX MACHINE AND CM IS UNABLE TO LEAVE MESSAGE, CM TO REVISIT.
[2021-11-17 09:50] LABS: HIV AB/AG Nonreactive (Nonreactive); HIV Num 1 0.06 S/CO (0.00-0.99)
[2021-11-17 10:18] VITALS: O2SAT 94
[2021-11-17] MEDS: Enoxaparin Sodium 40 MG/0.4 ML SYRINGE SUBCUT (10:19)
[2021-11-17 10:28] LABS: HBsAGNum1 0.15 S/CO (0.00-0.99); Hepatitis B Surface Antigen Negative (Negative); ~HepC Num1 0.09 S/CO (0.00-0.79); ~Hepatitis C Antibody Nonreactive (Nonreactive)
[2021-11-17 11:32] LABS: HBS Num1 0.12 mIU/mL (0-7.99); Hepatitis B Core Antibody Nonreactive (Nonreactive); ~Hepatitis B Surface Antibody NONREACTIVE (Nonreactive)
[2021-11-17 11:41] LABS: Glucose, Whole Blood 78 mg/dL (60-115)
--- NOTE | 2021-11-17 12:03 | MHC.CM.PN ---
CM MET W/PT TO DISCUSS DCP, PT AWARE SHE [facility] NOT [facility] BY [facility] PROVID[facility] AND THEREFORE THEY WILL NOT PAY FOR ANY HOME SERVICES, CM OFFERED TO SET UP AN APPT FOR HER HOWEVER PT DECLINES AND C/O [facility] TAKING MONTHS OR YEARS TO GET ANYTHING DONE, CM SUGGESTED SHE SIGN UP W/MH SO SHE COULD SEE A PROVIDER CLOSER TO HOME HOWEVER SHE IS DECLINING FS REFERRAL AND ADDING ANY INSURANCE. WHEN ASKED IF SHE HAD A WALKER OR CANE AT HOME AND PT DOES NOT, PT REPORTS SHE THOUGHT SHE COULD [place]ALKER [place] [facility] [place] TOLD HER SHE COULD, CM VERIFIED W/ORTHO THAT IS NOT THE CASE. CM CONTACTED [facility] HOWEVER THEY DO NOT TAKE [place] INSURANCE, CM STILL ATTEMPTING TO CONTACT [facility] W/NO SUCCESS. CM CONTACTED [facility] ON [address] AND THEY DO NOT HAVE [employer] AND REFERRED THIS CM TO KORY MONROY AT [facility] DEPT [phone] WITH DIRECTIONS TO LEAVE A MESSAGE AND REPORTED HE WILL DELIVER AND REEL [employer] WALKERS AND POSSIBLY OTHER DME. PREVIOUS CM NOTE STATED PT IS UNABLE TO RECEIVE HOME SERVICES D/T NO PROVIDER W/IN 2YRS AT [place], PT IS AWARE AND REPORTS SHE WILL BE FINE W/EXERCISES AND INSTRUCTIONS FROM PT.
--- NOTE | 2021-11-17 13:32 | HO.PM.IMPN ---
Subjective Subjective Date of Service: 11/17/21 Interval History: hip fx. Review of Systems still has significant hip pain, poor oral intake, denies any chest pain, seems anxious and depressed. Physical Exam Vital Signs: Vital Signs: Last Vital Signs Temp 97.3 F 11/17/21 08:00 Pulse 75 11/17/21 08:00 Resp 20 11/17/21 08:00 BP 146/80 H 11/17/21 08:00 Pulse Ox 94 11/17/21 10:18 BMI result Body Mass Index 16.5 Gen: NAD, cachectic with bitemporal wasting HEENT: sclera anicteric, moist mucus membranes Neck: supple Lungs: clear to auscultation bilaterally Heart: bradycardic, no murmurs Abd: soft, non-tender, non-distended Ext: no edema, multiple abrasions to L leg, multiple ecchymoses on extremities wiggle toes Skin: warm/well-perfused Neuro: alert and oriented x3, no focal findings Psych: appropriate affect Objective Data Active Medications Acetaminophen (Acetaminophen 325 Mg Tablet) 650 mg PO Q6H PRN PRN Reason: Pain, Mild (Pain Scale 1-3) Cyanocobalamin (Cyanocobalamin (Vitamin B-12) 500 Mcg Tablet) 500 mcg PO DAILY [facility] Last Admin: 11/17/21 07:48 Dose: 500 mcg Documented by: CAMILA Enoxaparin Sodium (Enoxaparin Sodium 40 Mg/0.4 Ml Syringe) 40 mg SUBCUT Q24H [facility] Last Admin: 11/17/21 10:19 Dose: 40 mg Documented by: CAMILA Ferrous Sulfate (Ferrous Sulfate 324 Mg Tablet.) 324 mg PO DAILY [facility] Last Admin: 11/17/21 07:48 Dose: 324 mg Documented by: CAMILA Dextrose/Lactated Ringer's (D5lr) 1,000 mls @ 80 mls/hr IVCONT .[id number] [facility] Last Admin: 11/17/21 10:22 Dose: Not Given Documented by: CAMILA Non-Admin Reason: Patient Refused Morphine Sulfate (Morphine Sulfate 2 Mg/Ml Cartridge) 2 mg IVPUSH Q4H PRN; Protocol PRN Reason: severe pain Last Admin: 11/17/21 06:48 Dose: 2 mg Documented by: CANDIDA Multivitamins/Vitamin C (Multivitamin Tablet) 1 tab PO DAILY [facility] Last Admin: 11/17/21 07:48 Dose: 1 tab Documented by: CAMILA Ondansetron HCl (Ondansetron Hcl 4 Mg/2 Ml Vial) 4 mg IVPUSH Q8H PRN PRN Reason: Nausea and Vomiting Last Admin: 11/15/21 14:58 Dose: 4 mg Documented by: NANCY Sodium Chloride (0.9 % Sodium Chloride Flush 3 Ml Syringe) 3 ml IVFLUSH QSHIFT [facility] Last Admin: 11/17/21 07:49 Dose: 3 ml Documented by: CAMILA Vitamin D (Cholecalciferol (Vitamin D3) 25 Mcg Tablet) 25 mcg PO DAILY [facility] Last Admin: 11/17/21 07:48 Dose: 25 mcg Documented by: CAMILA Labs CBC & Chem 7: 11/17/21 05:46 11/17/21 05:46 Labs: Laboratory Results - last 24 hr 11/16/21 11/16/21 11/17/21 05:32 05:32 05:46 Anion Gap 12 Estim Creat Clear Calc 50.7 Estimated GFR > 60 POC Glucose Random Glucose 57 L* Calcium 8.4 D Hep Bs Antigen Negative Hep Bs Antibody NONREACTIVE Hep B Core Total Ab Nonreactive Hepatitis C Ab (EIA) Nonreactive HIV 1&2 Ab/P24 Ag 4thGn Nonreactive 11/17/21 11/17/21 08:36 11:31 Anion Gap Estim Creat Clear Calc Estimated GFR POC Glucose 76 78 Random Glucose Calcium Hep Bs Antigen Hep Bs Antibody Hep B Core Total Ab Hepatitis C Ab (EIA) HIV 1&2 Ab/P24 Ag 4thGn Assessment and Plan (1) Closed intertrochanteric fracture of femur: Status: Acute (2) Anemia: Status: Acute Plan 61yo F with recently diagnosed anemia, transaminasemia, peripheral edema, and hypoalbuminemia presenting after mechanical fall in which she sustained a left femoral intertrochanteric fracture. 1. intertrochanteric fracture day2 incentive [place] pain control - plan operative fixation today by Ortho 2. anemia, normocytic - transfused 1u pRBCs 11/15/21 - continue iron repletion PO h/h 9.7 range 3. transaminasemia - AST/ALT improved.? US with normal liver 11/07/21.? HBV/HCV status pending 4. hypoglycemia - resolved, asymptomatic , moniter for po intake 5. elevated BNP/peripheral edema - TTE as above.? not in decompensated HF.? On furosemide for edema management. 6. hyperNa - mild, resolved 7. severe protein/calorie malnutrition - supplements 8. depression/anxiety: care team eval. 9.. VTE ppx - SCDs Quality Stroke Does the patient have a stroke diagnosis?: No VTE Prior VTE?: No VTE Risk Level:: Medical - moderate - high VTE Device Contraindication: N/A - Device Ordered VTE Drug Contraindication: N/A - Med Ordered
--- NOTE | 2021-11-17 14:43 | MHC.CM.PN ---
ANTIC D/C FRI HOME NO SERVICES [facility] WILL NOT AUTH, PT DECLINES ASSISTANCE W/MAKING APPT W/A PCP AND DECLIINES REFERRAL FOR FS, PT'S MOTHER WILL [place] A FRONT WHEELED WALKER AT [facility] TODAY AND WILL TRANSPORT PT HOME.
--- NOTE | 2021-11-17 15:10 | MHC.CARE ---
Social work campus recruiting internship attempted to meet with pt. to offer support and provide resources, but pt. did not want to meet. CARE Team will try to meet with pt. tomorrow morning before discharge. CARE team is available as needed and contacted Dr. Alba about attempted consult.
[2021-11-17 16:00] VITALS: BP 125/84; PULSE 78; RESP 15; TEMP 36.4; O2SAT 84
[2021-11-17] MEDS: oxyCODONE HCl Immed Release 5 MG TABLET PO (17:42)
--- NOTE | 2021-11-17 23:08 | PC.NURSE ---
pt refusing sequentials, IV fluids, and IV was leaking, removed it and pt refused a new IV.
[2021-11-17 23:54] VITALS: BP 158/83; PULSE 63; RESP 14; TEMP 36.1; O2SAT 99
[2021-11-18] MEDS: oxyCODONE HCl Immed Release 5 MG TABLET PO ×2 (03:21→09:21)
--- NOTE | 2021-11-18 07:15 | PM.DS ---
DS: Providers Provider Date of Service: 11/18/21 Date of admission: 11/15/21 14:04 Primary care physician: None Physician Consults: 11/15/21 14:25 Consult to Orthopedics Routine Consulting Provider: Prakash Mc Reason for consultation: hip fx 11/17/21 12:48 Consult to Care Team Routine Comment: Reason for consultation: depression Has provider been notified: No DS: Diagnosis Discharge Diagnosis (1) Closed intertrochanteric fracture of femur: Status: Acute (2) Anemia: Status: Acute DS: Summary Hospital Course Hospital Course: The patient underwent a successful left hip IM Nail, they were transferred to PACU and then to the floor to recover. During their stay, their vitals were stable, afebrile at 96.9. Labs were unremarkable, H/H 9.7/31.5. POD 1 they were started on Lovenox po bid for DVT ppx, they also received Physical Therapy services twice a day. Prior to discharge, their dressing was changed, incision clean dry and intact, new dressing applied and the plan was to be discharged home with VNA services. Time Spent with Patient Time attestation: Total time spent providing and/or coordinating discharge services: Discharge coordination time: Less than 30 minutes Quality: Stroke Does the patient have a stroke diagnosis?: No Physical Exam Vital Signs: Vital Signs: Last Vital Signs Temp 96.9 F 11/17/21 23:54 Pulse 63 11/17/21 23:54 Resp 14 11/17/21 23:54 BP 158/83 H 11/17/21 23:54 Pulse Ox 99 11/17/21 23:54 BMI result Body Mass Index 16.5 Const: General: cooperative, healthy appearing and no acute distress Resp: Effort & Inspection: normal respiratory effort and able to speak in complete sentences Cardio: Rate: regular rate Peripheral pulses: Peripheral pulses 2+ throughout GI: Palpation (GI): Soft to palpation Skin: Lesions: no lesions Rashes: no rashes Extrem: Other: Left hip incision sites are well approximated.? Marlene intact.? Dressing changed.? Patient is ambulating.? NVI. DS: Data Data Completed and Pending Labs on day of discharge: Laboratory Results - last 24 hr 11/16/21 11/16/21 11/17/21 05:32 05:32 05:46 Sodium 139 Potassium 4.2 Chloride 101 Carbon Dioxide 30 H Anion Gap 12 BUN 36 H Creatinine 0.74 Estim Creat Clear Calc 50.7 Estimated GFR > 60 POC Glucose Random Glucose 57 L* Calcium 8.4 D Hep Bs Antigen Negative Hep Bs Antibody NONREACTIVE Hep B Core Total Ab Nonreactive Hepatitis C Ab (EIA) Nonreactive HIV 1&2 Ab/P24 Ag 4thGn Nonreactive 11/17/21 11/17/21 08:36 11:31 Sodium Potassium Chloride Carbon Dioxide Anion Gap BUN Creatinine Estim Creat Clear Calc Estimated GFR POC Glucose 76 78 Random Glucose Calcium Hep Bs Antigen Hep Bs Antibody Hep B Core Total Ab Hepatitis C Ab (EIA) HIV 1&2 Ab/P24 Ag 4thGn Discharge Plan Discharge Patient Disposition: Home Health Service Discharge Diagnosis: s/p left hip IM Nail Referrals: KORY MONROY [Other] - 1 Week (PLEASE CALL KORY MONROY [phone] WHEN YOU ARE READY TO RETURN THE WALKER, LEAVE A MESSAGE AND HE WILL RETURN YOUR CALL. ) Physician,None [Primary Care Provider] - 1 Week Discharge Medications: New acetaminophen 325 mg Tablet 650 mg PO Q6H PRN (Reason: Pain, Mild (Pain Scale 1-3)) 30 Days Qty: 240 0RF oxycodone 5 mg Tablet 5 mg PO Q6H PRN (Reason: Pain, Moderate (Pain Scale 4-6) 7 Days Qty: 28 0RF enoxaparin 40 mg/0.4 mL Syringe 40 mg subcut Q24H 42 Days Qty: 16.8 0RF Continued ferrous sulfate 325 mg (65 mg iron) tablet 325 mg PO DAILY Qty: 30 0RF cyanocobalamin (vitamin B-12) 500 mcg Tablet 500 mcg PO DAILY 0RF cholecalciferol (vitamin D3) [Vitamin D3] 25 mcg (1,000 unit) Capsule 25 mcg PO DAILY 0RF Centrum Chewables 8 mg-400 mcg- 10 mcg Tablet,Chewable 1 tab PO DAILY 0RF Discharge Orders: Discharge Order (Routine); Ordered 11/18/21 Ordered By: Jaye Ramirez Diet: advance to usual diet Activity on Discharge: Use cane or walker Stand Alone Forms: Patient Portal Discharge page Care Plan Goals: restore fxn to left hip Health Concerns: anemia Plan of Treatment: Gait training, strengthening, ADLs Continue Lovenox for dvt ppx x6 weeks Keep dressing clean, dry and intact-no showering or tub baths Follow up with Orthopedics in 2 weeks Assessment: Stable for d/c
[2021-11-18 07:37] VITALS: BP 139/80; PULSE 56; RESP 16; TEMP 36.9; O2SAT 100
--- NOTE | 2021-11-18 08:07 | W.MHC.F2F ---
Service Date Service Date: 11/18/21 Encounter Date of encounter: 11/18/21 Reasons for Services Signs and symptoms assessed: Pt. is considered homebound due to recent surgery. Unable to drive, poor balance, poor gait mechanics. Reason for intermediate: wound care, administration of IV, SQ, or IM injection and postoperative assessment and/or care Reason for physical therapy: home safety and mobility, therapeutic exercises, restore joint function, gait/transfer training and ADL training Reason for occupational therapy: home safety and mobility, therapeutic exercises, restore joint function, gait/transfer training and ADL training Homebound: Leaving the home is medically contraindicated at this time without the asist of a device and/or another person due th the listed conditions above and below. Reason homebound: unsteady gait / fall risk, leg weakness, pain with ambulation, pain with transfers, poor balance / fall risk and unable to drive Certification: Based on the above findings, I certify that this patient is confined to the home and needs intermittent intermediate care, physical therapy and/or speech therapy, or continues to need occupational therapy. The patient is under my care, and I have initiated the establishment of the plan of care. The patient will be followed by a physician who will periodically review the plan of care.
[2021-11-18] MEDS: Multivitamin TABLET 1 TAB PO (08:26)
[2021-11-18] MEDS: Cholecalciferol (Vitamin D3) 25 MCG TABLET PO (08:26)
[2021-11-18] MEDS: Cyanocobalamin (Vitamin B-12) 500 MCG TABLET PO (08:26)
[2021-11-18] MEDS: Ferrous Sulfate 324 MG TABLET.DR PO (08:27)
[2021-11-18] MEDS: Enoxaparin Sodium 40 MG/0.4 ML SYRINGE SUBCUT (08:28)
[2021-11-18 08:53] VITALS: BP 139/80; PULSE 56; O2SAT 100
[2021-11-18 09:04] LABS: MANUAL DIFF FLAG NO
--- NOTE | 2021-11-18 09:14 | MHC.CM.PN ---
pt unable to have vna as she has no pcp and [facility] unable to assist
[2021-11-18 09:18] LABS: Hematocrit 30.5 % (37.0-47.0); Hemoglobin 9.7 g/dl (12.0-16.0); Imm Gran Abs Auto 0.02 X10*3/uL (0.00-0.03); Imm Gran Pct Auto 0.3 % (0.0-0.4); Lymphocytes Absolute Auto 0.7 X10*3/uL (1.2-4.9); Lymphocytes Percent Auto 11.8 % (20-40); Mean Corpuscular HGB Conc 31.8 g/dl (31.0-35.0); Mean Corpuscular Hemoglobin 26.5 pg (27.0-33.0); Mean Corpuscular Volume 83.3 fL (80.0-98.0); Mean Platelet Volume 8.9 fL (9.4-12.3); Monocytes Absolute Auto 0.5 X10*3/uL (0.1-1.2); Monocytes Percent Auto 7.6 % (2-11); Neutrophils Absolute Auto 4.8 x10*3/uL (2.0-8.3); Neutrophils Percent Auto 80.3 % (45-73); Platelet Count 284 X10*3/uL (160-400); Red Blood Count 3.66 X10*6/uL (4.20-5.50); Red Cell Distribution Width 23.4 % (11.0-16.0); White Blood Count 5.9 X10*3/uL (4.8-10.8)
[2021-11-18] MEDS: Acetaminophen 325 MG TABLET 650 MG PO (09:20)
[2021-11-18] MEDS: 0.9 % Sodium Chloride Flush 3 ML SYRINGE IVFLUSH (09:21)
--- NOTE | 2021-11-18 09:25 | MHC.CARE ---
CARE Team meets with pt at the request of Dr. Louis.? Dr. Louis requested a check in with pt.? 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 She stated that was ?The best time of my life.?? 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 Pt reports not having a good experience at this facility and appeared irritated at her experience, though was pleasant during our interaction. 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 CARE Team offered to secure a Lyft for pt but pt declined.? CARE Team advised pt that if her plans changed and she required a ride upon discharge to advise her nurse or Doctor and CARE Team will secure a Lyft. Pt was asked if she had a need or interest in any resources the CARE Team can provide and she stated she was not in need nor had any interest.? Pt was advised that should she change her mind to advise her nurse or Doctor.
[2021-11-18 09:36] LABS: Anion Gap 11 (12-20); Blood Urea Nitrogen 42 mg/dL (9-16); Calcium 8.7 mg/dL (8.4-10.2); Carbon Dioxide 33 mmol/L (22-29); Chloride 99 mmol/L (96-108); Creatinine Clr Calc Pharmacy 45.8; Estimated Glomerular Filt Rate > 60; Glucose Random 58 mg/dL (60-115); Potassium 4.9 mmol/L (3.3-5.1); Sodium 138 mmol/L (135-145)
[2021-11-18 11:18] LABS: Estimated Average Glucose 91 mg/dL; Hemoglobin A1c % 4.8 %
--- NOTE | 2021-11-18 12:27 | PM.EVENT ---
Event Note Date of Service: 11/18/21 Event Note: Patient patient was discharged before I went to see the patient. be called the patient home and discussed her management in detail with her: 61yo F with recently diagnosed anemia, transaminasemia, peripheral edema, and hypoalbuminemia presenting after mechanical fall in which she sustained a left femoral intertrochanteric fracture. 1. intertrochanteric fracture :seems improving, Went home with the pain medications. Follow-up with Ortho outpatient. 2. anemia, normocytic Receivedtransfused 1u pRBCs 11/15/21 continue iron repletion PO h/h 9.7 range advised patient follow-up CBC outpatient with PCP and further management outpatient as per PCP. 3. transaminasemia- AST/ALT improved.? US with normal liver 11/07/21.? HBV/HCV status nonrecative. advised patient follow-up liver panel and further management outpatient as per PCP. 4. hypoglycemia:non dm , Hba1c4.8, fs flactuating, asymptomatic , drink juice and seems fine now at home ,encouraged for po intake, also advised to chec her fs at least once daily. 5. elevated BNP/peripheral edema- TTE as above.? not in decompensated HF.? On furosemide for edema management. 6. depression/anxiety: offered to talk to care team but refused to talk.seems fine ,denies any hopelessness or SI. Above management discussed with patient over the phone in detail length she understand and in agreement with the above plan, in addition she understand also that she need to get a PCP appointment. Also discussed if patient has any new symptoms or bleeding or worsening hip pain can come to the nearest emergency room. time spent 20 min.
[2021-11-18 16:38] LABS: Alanine Aminotransferase 20 U/L (0-31); Albumin Level 2.9 g/dL (3.5-5.0); Alkaline Phosphatase 115 U/L (39-117); Aspartate Amino Transferase 38 U/L (5-31); Bilirubin Direct 0.6 mg/dL (0.0-0.5); Bilirubin Total 1.4 mg/dL (0.0-1.0); Total Protein 5.3 g/dL (6.5-8.0)
== END 2021-11-18 11:09 | disposition home health service (06) | DRG 480 ==
LOC: HO.ED 11:43 → HO.EDOVER 14:20 → HO.S3 18:09
PROVIDERS: Orthopaedic Surgery; Physician Assistant; Admitting Provider Family Medicine; Emergency Provider Emergency Medicine; Visit Provider Internal Medicine
PROC: 0QS736Z Reposition Left Upper Femur with Intramedullary Internal Fixation Device, Percutaneous Approach (ICD-10-PCS; principal; 2021-11-16 12:40)
DX: S72.142A Displaced intertrochanteric fracture of left femur, initial encounter for closed fracture (principal); E43 Unspecified severe protein-calorie malnutrition; Z68.1 Body mass index [BMI] 19.9 or less, adult; E87.0 Hyperosmolality and hypernatremia; E16.2 Hypoglycemia, unspecified; W01.0XXA Fall on same level from slipping, tripping and stumbling without subsequent striking against object, initial encounter; Y93.9 Activity, unspecified; Y92.008 Other place in unspecified non-institutional (private) residence as the place of occurrence of the external cause; D64.9 Anemia, unspecified; F32.A Depression, unspecified; F41.9 Anxiety disorder, unspecified; Z20.822 Contact with and (suspected) exposure to COVID-19; Z87.891 Personal history of nicotine dependence; Z79.899 Other long term (current) drug therapy
CPT/HCPCS: 36415; 36430; 73502; 73560; 80048; 80053; 80076; 82607; 82728; 82947; 83036; 83540; 83615; 83735; 83880; 84134; 84439; 84443; 85014; 85018; 85025; 85045; 85610; 86704; 86706; 86803; 86850; 86900; 86901; 86920; 87340; 87389; 87635; 93005; 93306; 97162; 97165; 99285; 99291; C1713; C1769; J0690; J1650; J2250; J2270; J2405; J3010; P9016

== ENCOUNTER 2021-11-29 11:17 | Outpatient (REF) | payer OTHER, SELFPAY | END 2021-11-29 11:18 | disposition home or self-care (01) | LOC: HO.HOSX 11:17 | PROVIDERS: Visit Provider Physician Assistant | DX: M25.552 Pain in left hip (principal); S72.142A Displaced intertrochanteric fracture of left femur, initial encounter for closed fracture; W04.XXXA Fall while being carried or supported by other persons, initial encounter; Y93.01 Activity, walking, marching and hiking; Y92.531 Health care provider office as the place of occurrence of the external cause; Y99.8 Other external cause status; Z87.891 Personal history of nicotine dependence; Z79.82 Long term (current) use of aspirin; Z79.891 Long term (current) use of opiate analgesic; Z79.899 Other long term (current) drug therapy | CPT/HCPCS: 99212 ==

== ENCOUNTER 2021-11-29 11:40 | Inpatient (IN) | payer OTHER, SELFPAY ==
[2021-11-29] VITALS (9 sets, daily range): BP systolic 105–144; BP diastolic 59–82; PULSE 52–90; RESP 12–18; TEMP 36.3–37.2; O2SAT 100; BMI 19.1
--- NOTE | ~2021-11-29 | XR_ITS ---
EXAMINATION: XR CHEST CLINICAL INFORMATION: Syncope COMPARISON: None TECHNIQUE: Frontal view of the chest was obtained. FINDINGS: Both lungs are hyperinflated but clear of acute process. Heart size and pulmonary vascularity is normal limits. No gross bony abnormality seen. XR/XR chest 1V IMPRESSION: Hyperinflated lungs without acute process.
--- NOTE | ~2021-11-29 | XR_ITS ---
EXAMINATION: XR HIP, LEFT CLINICAL INFORMATION: Left hip pain after fall. COMPARISON: November 15, 2021 TECHNIQUE: AP pelvis and 2 views of the left hip. FINDINGS: Patient status post intramedullary toni and compression screw fixation of a comminuted proximal left femoral fracture. There is no evidence of acute fracture or diastases of the pelvis. Hip joint spaces appear maintained with some calcification of the superior labrum of the right hip versus chondrocalcinosis. Sacroiliac joints appear unremarkable. Prominent calcified vessels are seen. There is degenerative disc disease at the L4-L5 and L5-S1 levels. 2 views of the right hip demonstrate compression screw in place for intertrochanteric fracture. No new acute fracture is appreciated. No dislocation is seen. The most distal aspect of the medullary toni is not included on imaging. XR/XR hip LT w PEL1V IMPRESSION: Medullary toni and compression screw in place for fixation of left femoral intratrochanteric fracture without evidence of new fracture or dislocation.
--- NOTE | ~2021-11-29 | IR_ITS ---
PROCEDURE: IR INSERTION OF PICC conversion from midline catheter left upper extremity. CLINICAL INFORMATION: Bacteremia COMPARISON: None TECHNIQUE: Fluoroscopic guided placement of left upper extremity PICC line All elements of maximal sterile barrier technique followed including use of cap, mask, sterile gown, sterile gloves, a sterile full body drape and hand hygiene. Also followed skin preparation with 2% chlorhexidine for cutaneous antisepsis, and sterile ultrasound preparation with sterile gel and probe cover when applicable. FINDINGS: Informed consent was obtained from the patient prior to the procedure. During this process, the procedure and potential alternatives were explained, along with the intended outcome and benefits. The risks of the procedure, as well as the risk of not doing the procedure, were discussed. The patient was given the opportunity to ask questions regarding the procedure and appeared competent to make medical decisions. A signed consent form which documents this discussion was placed in the medical record. Using sterile technique and guidewire was placed through the midline catheter and advanced into the right atrium. The midline was then removed and a single lumen PICC line trimmed to 41 cm was placed with its tip lying at the caval atrial junction. The PICC line aspirated and flushed freely. Antimicrobial disc was placed at skin entry site. Patient tolerated procedure without difficulty. IR/IR cvc insert peripheral IMPRESSION: Conversion of left upper extremity midline catheter to a PICC line. 0.5 minutes fluoroscopy.
--- NOTE | ~2021-11-29 | CT_ITS ---
EXAMINATION: CT HEAD WITHOUT CONTRAST CLINICAL INFORMATION: Weakness. COMPARISON: None. TECHNIQUE: Contiguous axial imaging was performed from the skull base to vertex without intravenous administration of contrast. This CT examination was performed using dose optimization techniques as appropriate, variously including the following: *Automated exposure control *Adjustment of mA and/or kV according to patient size (this includes techniques or standardized protocols for targeted exams where dose is matched to indication/reason for exam; i.e. extremities or head) *Use of iterative reconstruction technique DLP: 214 mGy-cm FINDINGS: There is no evidence of acute intracranial hemorrhage or edematous territorial infarction. A few foci of hypoattenuation in the periventricular and deep white matter are consistent with mild microangiopathy. Almanza-white matter differentiation is preserved. The ventricles are normal in size and configuration. No evidence for obstructive hydrocephalus. No abnormal mass effect or midline shift. No extra-axial fluid collections. No acute soft tissue or osseous abnormalities. 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 The mastoid air cells and paranasal sinuses are clear. CT/CT head/brain wo con IMPRESSION: No evidence of acute intracranial hemorrhage or edematous territorial infarction.
--- NOTE | ~2021-11-29 | CT_ITS ---
EXAMINATION: CT CHEST, ABDOMEN AND PELVIS WITH CONTRAST CLINICAL INFORMATION: Abdominal pain. Constipation. Anemia. Concern for cancer. COMPARISON: Chest x-ray 11/29/2021. Abdominal ultrasound 02/17/2015. Ultrasound right upper quadrant 11/07/2021. TECHNIQUE: Multidetector volumetric CT imaging of the chest, abdomen and pelvis was obtained after the administration of 85 mL of intravenous Omnipaque 350 without immediate adverse reactions. Coronal and sagittal reformatted images are performed at the CT scanner. This CT examination was performed using dose optimization techniques as appropriate, variously including the following: *Automated exposure control *Adjustment of mA and/or kV according to patient size (this includes techniques or standardized protocols for targeted exams where dose is matched to indication/reason for exam; i.e. extremities or head) *Use of iterative reconstruction technique DLP: 7.31+7.31+116.07+213.76 mGy-cm FINDINGS: CT CHEST: Lungs: No acute airspace disease. No interstitial lung disease or bronchiectasis. Lung nodules: Left lun. A 2 mm left lower lobe lung nodule axial image 403/547 series 24. 2. Subpleural polygonal-shaped subpleural nodule measuring 2 mm left lower lobe axial image 392/547 series 24. Likely subpleural lymph node. Right lun. A 1 mm subpleural nodule right upper lobe axial image 145/547 series 24. Mediastinum: No mediastinal mass or significant lymphadenopathy. Heart size is normal. No pericardial effusion. Small volume of coronary artery calcification. No aneurysm of the aorta. There are vascular calcifications of the thoracic aortic arch. Pleura: There is no pleural effusion. No pleural mass or thickening. Axilla: No lymphadenopathy. CT ABDOMEN AND PELVIS: Liver, Gallbladder and Biliary Tree: The liver is normal in size, shape, and attenuation. No focal hepatic lesion or biliary ductal dilatation is present. The gallbladder is unremarkable with no evidence of radiopaque gallstones, gallbladder wall thickening, or obvious pericholecystic inflammatory changes. Pancreas: No acute change of the pancreas. No mass. No pancreatic duct dilatation. Spleen: Spleen normal in size and contour. No focal lesion. Adrenal Glands: Adrenal glands are normal in size. No focal mass. Kidneys and Ureters: The kidneys are normal in size, shape, and attenuation. No hydronephrosis, hydroureter, or calculi seen. No perinephric stranding. Bladder: Unremarkable. Gastrointestinal Tract: The small and large bowel are unremarkable. Moderate volume of stool in the colon. The appendix is nonvisualized. Mesentery: Patient is cachectic. The fat planes are limited. Difficult to discern whether there is abdominal ascites versus low attenuation mesenteric fat. No abdominal ascites seen on the ultrasound exam of 11/07/2021. Abdominal Wall: No significant hernia is appreciated. Lymph Nodes: Normal. Vascular: Diffuse atherosclerotic vascular calcifications throughout the abdomen and pelvis. No aneurysm of aorta. Pelvic Viscera: Uterus is atrophic. There is no adnexal abnormality. Osseous Structures: Compression screw in the left hip. Degenerative joint disease of hips bilateral. Multilevel degenerative spondylosis of the spine. No suspicious osseous lesions. CT/CT abdomen pelvis w con IMPRESSION: 1. CT chest. No suspicious lung mass. No acute abnormality of chest. 2. CT scan abdomen and pelvis. No abdominal or pelvic mass. No acute abnormality.
--- NOTE | ~2021-11-29 | XR_ITS ---
EXAMINATION: XR CHEST CLINICAL INFORMATION: Fever COMPARISON: None TECHNIQUE: 2 views of the chest were obtained. FINDINGS: The cardiac and mediastinal contours are stable. The lungs are well inflated. The lungs are clear. There are new small bilateral pleural effusions. There is no pneumothorax. There are mild degenerative changes of the spine. XR/XR chest 2V IMPRESSION: New small bilateral pleural effusions. No evidence of pneumonia.
--- NOTE | 2021-11-29 12:38 | ECG_ITS ---
Test Reason : syncope Blood Pressure : / mmHG Vent. Rate : 086 BPM Atrial Rate : 086 BPM P-R Int : 152 ms QRS Dur : 078 ms QT Int : 322 ms P-R-T Axes : 086 085 088 degrees QTc Int : 385 ms Normal sinus rhythm ST & T wave abnormality, consider anterolateral ischemia Abnormal ECG When compared with ECG of 15-NOV-2021 12:29, Vent. rate has increased BY [address] now depressed in Anterior leads Referred By: Generic ED Physician Electronically Signed By:LOGAN ENAMORADO
[2021-11-29 12:54] LABS: Hematocrit 23.8 % (37.0-47.0); Hemoglobin 7.3 g/dl (12.0-16.0); Mean Corpuscular HGB Conc 30.7 g/dl (31.0-35.0); Mean Corpuscular Hemoglobin 27.3 pg (27.0-33.0); Mean Corpuscular Volume 89.1 fL (80.0-98.0); Mean Platelet Volume 9.3 fL (9.4-12.3); Platelet Count 314 X10*3/uL (160-400); Red Blood Count 2.67 X10*6/uL (4.20-5.50); Red Cell Distribution Width 25.2 % (11.0-16.0); White Blood Count 6.8 X10*3/uL (4.8-10.8)
--- NOTE | 2021-11-29 13:05 | ED.CHESTPAIN ---
HPI - Chest Pain General Chief Complaint: Chest Pain Stated Complaint: Blurry Vision Numbness Radiating From Neck Time Seen by Provider: 11/29/21 12:13 Source: patient, family, RN notes reviewed and old records reviewed Mode of arrival: ambulatory Limitations: no limitations History of Present Illness HPI narrative: 61 y/o female with history of iron deficiency anemia, recent fall with left hip fracture s/p IM nail 11/16/21 presents to the ER from Orthopedic office with generalized weakness and a brief syncopal episode in the office today. She reports since discharge from the hospital on 11/18 (refused to go to rehab) patient has been declining. She reports loss of appetite, nausea, intermittent abdominal pain, constipation, weakness in her arms and legs, blurry vision and not feeling well. She also reports middle chest pain that is reproducible that started a few days ago, dizziness and shortness of breath with minimal exertion. She lives with her mother who has had to help her with all of her ADLs. She reports a recent fall with a skin tear to the right lower leg. She has had LE and foot swelling for a long time and was started on diuretics in October. She denies history of bulemia, anorexia but admits to very poor PO intake. Only had toast w/ jam and half a grilled cheese yesterday. Denies hx GI bleed but admits to black stool. She required blood transfusion prior to her surgery earlier this month. She stopped taking her iron pills due to constipation. She has never had a colonoscopy and is a former smoker of 30 years. MD complaint: chest pain and other (syncope) Onset (ago): week(s) (1.5) Timing of current episode: constant Prior episodes: Yes Onset: during exertion Pain location: substernal Pain radiation: none Severity: mild Quality: aching Relieving factors: rest Exacerbating factors: exertion Context: recent surgery Related Data Home Medications Medication Instructions Recorded Confirmed cholecalciferol (vitamin D3) 25 25 mcg PO DAILY 11/15/21 11/29/21 mcg (1,000 unit) capsule (Vitamin D3) cyanocobalamin (vitamin B-12) 500 500 mcg PO DAILY 11/15/21 11/29/21 mcg tablet wehydner-kdjvjbao-lwly 8 mg-folic 1 tab PO DAILY 11/15/21 11/29/21 ac 400 mcg-vit K 10 mcg chew tablet (Centrum Chewables) Previous Rx's Medication Instructions Recorded ferrous sulfate 325 mg (65 mg 325 mg PO DAILY #30 tab 11/07/21 iron) tablet acetaminophen 325 mg tablet 650 mg PO Q6H PRN 30 Days #240 tab 11/18/21 aspirin 325 mg tablet 325 mg PO BID 42 Days #84 tab 11/18/21 omeprazole 20 mg capsule,delayed 20 mg PO DAILY #30 cap 11/18/21 release oxycodone 5 mg tablet 5 mg PO Q6H PRN 7 Days #28 tab 11/23/21 Allergies Allergy/AdvReac Type Severity Reaction Status Date / Time No Known Allergies Allergy Unverified 11/29/21 11:24 [No Known Allergies*] Review of Systems Review of Systems: Constitutional: No Fever, + Chills ENT/Mouth: No sore throat, No Rhinorrhea, No Swallowing Difficulty Eyes: No Eye Pain, No Swelling, No Redness Cardiovascular: + Chest Pain, + SOB, No Orthopnea, No Edema Respiratory: No Cough, No Sputum, No Wheezing, + dyspnea Gastrointestinal: No Nausea, No Vomiting, No Diarrhea, + abdominal Pain, No Hematochezia, No Melena Genitourinary: No Dysuria, No Urinary Frequency, No Hematuria Musculoskeletal: No joint pain, No Myalgias Skin: + Skin Lesions, No rash Neuro: + Weakness, No Numbness, + Dizziness, No Headache Psych: + Anxiety/Panic, + Depression Heme/Lymph: + Bruising, No Lymphadenopathy Endocrine: No Polyuria, No Polydipsia PMFSH Past Medical History Medical History (Updated 11/29/21 @ 17:30 by EVER Ayala) Anemia Surgical History H/O foot surgery Social History Social History Household Members: Other Household Members Other:: mother Housing: House Do you presently have visiting nurse or other home services: No Alcohol intake: never Patient Tobacco Use Status: Former Tobacco user Tobacco use type: Cigarette Advance Directives: Yes Advance Directives on File: Yes Advance Directives Date on File: 11/16/21 Patient : No service: Yes Current occupational status: employed Physical Exam Vital Signs: Vital Signs: Last Vital Signs Temp 97.6 F 02/22/22 17:39 Pulse 60 11/29/21 17:39 Resp 13 11/29/21 17:39 BP 144/70 H 11/29/21 17:39 Pulse Ox 100 11/29/21 15:45 BMI result Body Mass Index 19.1 Appearance: Cachectic female, slight pallor and jaundice, appears extremely weak and deconditioned. Eyes: Pupils equal, round and reactive to light. temoral wasting ENT: Pharynx normal. Dry mucus membranes Neck: Normal inspection. Neck supple. CVS: Normal heart rate and rhythm. Pulses normal. Respiratory: No respiratory distress. Breath sounds normal. Abdomen: thin, concave in appearance, firm with diffuse tenderness. decreased +BS x4. ULYSSES normal tone, nontender, hard stool palpable in rectal vault, brown stool, no palpable mass Skin: Skin warm and dry. Normal skin color. Normal skin turgor. No rashes. Extremities: all 4 extremities are extremely thin, frail. 2+ lower extremity edema of the distal lower legs and feet, scattered ecchymotic areas on all 4 extremities. left hip with a Meplex dressing in place some dried blood posteriorly. right anterior lower leg with a 4m superficial skin tear below tibial plateau Neuro: Oriented X 3. No motor deficit. No sensory deficit. Unable to ambulate due to weakness. Generalized weakness noted, nonfocal. Course Course Course Narrative: 61-year-old female with history of recent surgery on her left hip after a fall, anemia requiring transfusion prior to the operation who presents to the ER with generalized weakness, poor appetite, weight loss, dyspnea on exertion and a witnessed brief syncopal event at the orthopedic office today. On arrival she appears extremely deconditioned, frail, cachectic. She admits only eating very small amounts and having no appetite. She adamantly denies any intentional anorexia and denies bulimia. She denies any evidence of acute blood loss but did report some black stools when she was on iron. Previously refused rectal exams but is willing to do whatever it takes to figure out what's wrong. Concern for possible GI bleed with chronically elevated BUN on last few visits as well as possible underlying malignancy. Reevaluation(s) Reevaluation #1: Heme-negative, brown stool. Her H&H is again low with hemoglobin of 7.3, down from 9.7 just 11 days ago. Normal platelet count and WBC count making myelodysplastic syndrome less likely.. Will add hemolysis labs. Given her symptoms will proceed with PRBC transfusion. Consent obtained and in the chart. Brownlee scan still pending then will plan for admission. MDM - Chest Pain Lab Data Attestation: I reviewed the patient's lab results. Result diagrams: 11/29/21 12:46 11/29/21 12:46 Labs: Lab Results 11/29/21 11/29/21 11/29/21 Range/Units 12:46 12:46 12:46 WBC 6.8 (4.8-10.8) X10*3/uL RBC 2.67 L D (4.20-5.50) X10*6/uL Hgb 7.3 L D (12.0-16.0) g/dl Hct 23.8 L D (37.0-47.0) % MCV 89.1 (80.0-98.0) fL MCH 27.3 (27.0-33.0) pg MCHC 30.7 L (31.0-35.0) g/dl RDW 25.2 H (11.0-16.0) % Plt Count 314 (160-400) X10*3/uL MPV 9.3 L (9.4-12.3) fL Absolute Nucleated RBC 0.000 (0.0-0.012) X10*3/uL Nucleated RBC % (auto) 0.0 (0.0-0.2) /100WBC Absolute Retic 0.031 (0.026-0.095) X10*6/uL Percent Retic 1.1 (0.5-1.8) % Immature Retic Fraction 25.1 H (3.0-15.9) % Retic Hgb Equivalent 30.8 (30.0-35.0) pg Sodium 135 (135-145) mmol/L Potassium 3.2 L D (3.3-5.1) mmol/L Chloride 97 (96-108) mmol/L Carbon Dioxide 29 (22-29) mmol/L Anion Gap 12 (12-20) BUN 14 D (9-16) mg/dL Creatinine 0.65 (0.5-1.4) mg/dL Estim Creat Clear Calc 51.4 Estimated GFR > 60 Random Glucose 199 H (60-115) mg/dL Calcium 7.8 L D (8.4-10.2) mg/dL Iron 49 (30-160) mcg/dL TIBC 217 L (228-428) mcg/dL % Saturation 23 (15-50) % Unsat Iron Binding 168 ug/dL Troponin I High Sens 16.5 D (<3.5-17.0) ng/L Stool Occult Blood (NEGATIVE) COVID-19 ([facility]) (Negative) COVID-19 Clin Com Blood Type Antibody Screen Crossmatch 11/29/21 11/29/21 11/29/21 Range/Units 12:46 15:36 15:54 WBC (4.8-10.8) X10*3/uL RBC (4.20-5.50) X10*6/uL Hgb (12.0-16.0) g/dl Hct (37.0-47.0) % MCV (80.0-98.0) fL MCH (27.0-33.0) pg MCHC (31.0-35.0) g/dl RDW (11.0-16.0) % Plt Count (160-400) X10*3/uL MPV (9.4-12.3) fL Absolute Nucleated RBC (0.0-0.012) X10*3/uL Nucleated RBC % (auto) (0.0-0.2) /100WBC Absolute Retic (0.026-0.095) X10*6/uL Percent Retic (0.5-1.8) % Immature Retic Fraction (3.0-15.9) % Retic Hgb Equivalent (30.0-35.0) pg Sodium (135-145) mmol/L Potassium (3.3-5.1) mmol/L Chloride (96-108) mmol/L Carbon Dioxide (22-29) mmol/L Anion Gap (12-20) BUN (9-16) mg/dL Creatinine (0.5-1.4) mg/dL Estim Creat Clear Calc Estimated GFR Random Glucose (60-115) mg/dL Calcium (8.4-10.2) mg/dL Iron (30-160) mcg/dL TIBC (228-428) mcg/dL % Saturation (15-50) % Unsat Iron Binding ug/dL Troponin I High Sens (<3.5-17.0) ng/L Stool Occult Blood NEGATIVE (NEGATIVE) COVID-19 ([facility]) Negative (Negative) COVID-19 Clin Com See Note Blood Type O Positive Antibody Screen NEGATIVE Crossmatch See Detail ECG Data ECG #1: Attestation: I personally reviewed and interpreted this ECG as follows: ECG interpretation date: 11/29/21 Prior ECG tracings: available for review Interpretation: Normal sinus rhythm, heart rate 86 beats per minute, normal CO interval, normal QTC, artifact present, question T wave inversions V3-V6 Critical Care Time Critical Care Time Critical Care Time: Yes Total Critical Care Time: 44 Attestation: I have personally provided critical care time exclusive of time spent on separately billable procedures. Time includes review of lab data, radiology results, discussion with consultants/hospitalist, and monitoring for potential decompensation. Intervention performed as documented. Discharge Plan Discharge Clinical Impression: Symptomatic anemia, Syncope, Generalized weakness, Cachexia Patient Disposition: Admitted As Inpatient
[2021-11-29 13:08] LABS: Anion Gap 12 (12-20); Blood Urea Nitrogen 14 mg/dL (9-16); Calcium 7.8 mg/dL (8.4-10.2); Carbon Dioxide 29 mmol/L (22-29); Chloride 97 mmol/L (96-108); Creatinine Clr Calc Pharmacy 51.4; Estimated Glomerular Filt Rate > 60; Glucose Random 199 mg/dL (60-115); Potassium 3.2 mmol/L (3.3-5.1); Sodium 135 mmol/L (135-145)
[2021-11-29 13:11] LABS: COVID-19 Test Negative (Negative)
[2021-11-29 13:15] LABS: Troponin-I High Sensitivity 16.5 ng/L (<3.5-17.0)
[2021-11-29 14:00] LABS: Immature Retic Fraction 25.1 % (3.0-15.9); Retic HGB Equivalent 30.8 pg (30.0-35.0); Reticulocyte Percent 1.1 % (0.5-1.8); Reticulocytes Absolute 0.031 X10*6/uL (0.026-0.095)
[2021-11-29 14:09] LABS: Iron 49 mcg/dL (30-160); Percent Iron Saturation 23 % (15-50); Total Iron Binding Capacity 217 mcg/dL (228-428); Unsaturated Iron Binding 168 ug/dL
[2021-11-29] MEDS: Lactated Ringers 1,000 ML 999 ML IV (15:27)
[2021-11-29] MEDS: Acetaminophen 325 MG TABLET 650 MG PO (15:28)
[2021-11-29] MEDS: Potassium Chloride Packet 20 MEQ PACKET 40 MEQ PO (15:28)
[2021-11-29] MEDS: ondansetron HCL 4 MG/2 ML VIAL IVPUSH (15:28)
--- NOTE | 2021-11-29 15:30 | PC.NURSE ---
PT AWAKE, ALERT AND ORIENTED X 3. SKIN WARM AND DRY. RESP UNLABORED. PT C/O LEFT HIP PAIN AND ABD PAIN. STATES THAT SHE WAS AT PT TODAY AND FELL AND WAS SENT TO ED. PT REPORTING I AM TOO WEAK TO DO ANYTHING . PT WAS DIFFICULT IV START. OBTAINED #22 RIGHT AC ON THIRD ATTEMPT. PT MEDICATED ORDERED. MOTHER AT BEDSIDE. UPDATED ON PLAN OF CARE. PT AGREEABLE TO PLAN AND STATES NO QUESTIONS.
[2021-11-29 15:48] LABS: OBS Int Ctl Valid YES; OBS1 NEGATIVE (NEGATIVE)
[2021-11-29] MEDS: iohexoL 350 MG/ML 100 ML INFUS..BTL IV (16:31)
[2021-11-29 17:50] LABS: Alanine Aminotransferase 92 U/L (0-31); Albumin Level 2.3 g/dL (3.5-5.0); Alkaline Phosphatase 221 U/L (39-117); Aspartate Amino Transferase 76 U/L (5-31); Bilirubin Direct 0.4 mg/dL (0.0-0.5); Bilirubin Total 1.3 mg/dL (0.0-1.0); Lactate Dehydrogenase 469 U/L (122-220); Total Protein 4.6 g/dL (6.5-8.0)
--- NOTE | 2021-11-29 18:47 | PHA.MEDREC ---
Pharmacy Consult ? Medication Reconciliation Pharmacy has completed the medication reconciliation.
[2021-11-29 18:52] LABS: Troponin-I High Sensitivity 12.6 ng/L (<3.5-17.0)
--- NOTE | 2021-11-29 21:23 | PM.IMHP ---
History of Present Illness Date of Service: 11/29/21 Chief Complaint: generalized weakness, failure to thrive this is a 61 yo F with no significant past medical history with a recent left hip fracture on 11/15 who presents to the hospital with complaints of generalized weakness and failure to thrive. Patient was seen in the hospital and discharged on 06/18 after undergoing left hip IM nail. Patient at that time refused placement in rehab and went home with VNA services. She reports that since being discharged she has had significant decline in her health. She is not eating well, she is constantly dizzy, she has blurred vision, she has generalized weakness, she is unable to take care of herself and is completely dependent of all her ADLs on her mother. She reports no chest pain or shortness of breath but reports minimal activity. She has not been receiving physical therapy at home because she reports that she is very malnourished and does not have the strength to participate in physical therapy. She was visiting her orthopedic surgeon today and was so weak that she fell to the floor and was not able to get up. She reports no loss of consciousness, and reports that she was too weak to even walk. Patient reports that prior to the fracture she was running 3 times a day a day about 2 hours a day or 10 miles. Even prior to the fracture she was not eating well and was malnourished. shes had a fall last wk at home and tearing the skin on her right leg. she denies any nausea or vomiting, no abdominal pain no diarrhea constipation, no urinary symptoms and no lower extremity edema. on arrival to the ED patient found to have normal vitals Labs are significant for hemoglobin of 7.3, which was her baseline in October, hematocrit of 23.8, MCV of 89.1, potassium of 3.2, calcium of 7.8, iron of 49, TIBC of 217, ferritin of 178, elevated LFTs, troponin negative x2, folic acid and vitamin B12 pending occult stool negative As patient looked very cachectic, she underwent chest CT and abdominal CT which were both negative patient will receive 1 unit of PRBC in will be admitted for further management. Review of Systems Review of Systems: Yes all other systems are reviewed and are negative [facility] Medical History (Updated 11/30/21 @ 06:39 by Kahlil Dela Cruz MD) Anemia Closed intertrochanteric fracture of femur Family History (Updated 11/30/21 @ 06:29 by Kahlil Dela Cruz MD) Other No family history of coronary artery disease Surgical History (Updated 11/30/21 @ 06:29 by Kahlil Dela Cruz MD) H/O foot surgery History of hip surgery Social History Household Members: Other Household Members Other:: mother Housing: House Do you presently have visiting nurse or other home services: No Alcohol intake: never Patient Tobacco Use Status: Former Tobacco user Tobacco use type: Cigarette Advance Directives: Yes Advance Directives on File: Yes Advance Directives Date on File: 11/16/21 Patient : No service: Yes Current occupational status: employed Meds Allergies Allergy/AdvReac Type Severity Reaction Status Date / Time No Known Allergies Allergy Unverified 11/29/21 11:24 [No Known Allergies*] Active Medications: Current Medications Pharmacy Consult (Consult Rx Perform Med Rec) 1 each MISCELLANE ONCE PRN PRN Reason: Consult order Home Medications Medication Instructions Recorded Confirmed Last Taken Type cholecalciferol (vitamin D3) 25 25 mcg PO DAILY 11/15/21 11/29/21 11/14/21 History mcg (1,000 unit) capsule (Vitamin D3) cyanocobalamin (vitamin B-12) 500 500 mcg PO DAILY 11/15/21 11/29/21 11/14/21 History mcg tablet hhetwmww-cggaqiig-hjgr 8 mg-folic 1 tab PO DAILY 11/15/21 11/29/21 11/14/21 History ac 400 mcg-vit K 10 mcg chew tablet (Centrum Chewables) Physical Exam Vital Signs and Narrative: Vital Signs: Last Vital Signs Temp 97.7 F 11/29/21 19:29 Pulse 54 11/29/21 19:29 Resp 17 11/29/21 19:29 BP 132/68 11/29/21 19:29 Pulse Ox 100 11/29/21 18:00 BMI result Body Mass Index 19.1 Const: Other: patient cachectic ill-appearing General: cooperative and no acute distress Orientation/consciousness: patient oriented x3 Eyes: General: appearance normal, both eyes and all related structures Pupils: Equal, round and reactive pupils present Resp: Effort & Inspection: normal respiratory effort Auscultation: clear to auscultation bilaterally Cardio: Rate: regular rate Rhythm: regular rhythm GI: Palpation (GI): Soft to palpation Auscultation: normal bowel sounds Skin: Other: pt has bruising throughout the her body General skin exam: no rashes or lesions noted Neuro: General: patient oriented x3 Cranial nerves: Yes Equal, round and reactive pupils present Cognition (Neuro): normal cognition Extrem: General: Yes normal to inspection and Yes no pedal edema Results Labs CBC and Chem 7: 11/29/21 21:50 11/29/21 12:46 Labs: Laboratory Results - last 24 hr 11/29/21 11/29/21 11/29/21 12:46 12:46 12:46 MCV 89.1 MCH 27.3 MCHC 30.7 L RDW 25.2 H Plt Count 314 MPV 9.3 L Absolute Nucleated RBC 0.000 Nucleated RBC % (auto) 0.0 Absolute Retic 0.031 Percent Retic 1.1 Immature Retic Fraction 25.1 H Retic Hgb Equivalent 30.8 Anion Gap 12 Estim Creat Clear Calc 51.4 Estimated GFR > 60 Random Glucose 199 H Calcium 7.8 L D Iron 49 TIBC 217 L % Saturation 23 Unsat Iron Binding 168 Total Bilirubin 1.3 H Direct Bilirubin 0.4 AST 76 H ALT 92 H Alkaline Phosphatase 221 H D Lactate Dehydrogenase 469 H Total Protein 4.6 L Albumin 2.3 L D Stool Occult Blood COVID-19 ([facility]) Negative COVID-19 Clin Com See Note Blood Type Antibody Screen Crossmatch 11/29/21 11/29/21 15:36 15:54 MCV MCH MCHC RDW Plt Count MPV Absolute Nucleated RBC Nucleated RBC % (auto) Absolute Retic Percent Retic Immature Retic Fraction Retic Hgb Equivalent Anion Gap Estim Creat Clear Calc Estimated GFR Random Glucose Calcium Iron TIBC % Saturation Unsat Iron Binding Total Bilirubin Direct Bilirubin AST ALT Alkaline Phosphatase Lactate Dehydrogenase Total Protein Albumin Stool Occult Blood NEGATIVE COVID-19 ([facility]) COVID-19 Clin Com Blood Type O Positive Antibody Screen NEGATIVE Crossmatch See Detail Imaging Radiologist's Impressions: Impressions Chest X-Ray 11/29/21 13:00 IMPRESSION: Hyperinflated lungs without acute process. Abdomen/Pelvis CT 11/29/21 16:41 IMPRESSION: 1. CT chest. No suspicious lung mass. No acute abnormality of chest. 2. CT scan abdomen and pelvis. No abdominal or pelvic mass. No acute abnormality. Chest CT 11/29/21 16:41 IMPRESSION: 1. CT chest. No suspicious lung mass. No acute abnormality of chest. 2. CT scan abdomen and pelvis. No abdominal or pelvic mass. No acute abnormality. Head CT 11/29/21 16:41 IMPRESSION: No evidence of acute intracranial hemorrhage or edematous territorial infarction. Assessment and Plan (1) Normocytic anemia: Status: Acute (2) Failure to thrive in adult: Status: Acute (3) Generalized weakness: Status: Acute (4) Cachexia: Status: Acute (5) Malnutrition: Status: Acute (6) Closed intertrochanteric fracture of femur: Status: Acute Plan 61-year-old female with past medical history of recent hip fracture status post IM nail as well as normocytic anemia presents to the hospital with complaints of generalized weakness found to have anemia and failure to thrive # normocytic anemia - appears to be going on since October with no previous for comparison - has normal MCV - low to normal ferritin, low iron level - B12 and folic acid pending - no evidenc eo fGI bleed or any other source of bleeding - will transfuse 1 unit of PRBC - consult hematology - follow H&H # failure to thrive - appears to be secondary to deconditioning as well as malnutrition - patient will need replacement at rehab - hides and skins colorer consult - PT OT - case management consult # closed inter current Chris fracture femur status post IM nail - was not able to successfully see orthopedic surgeon yesterday due to generalized weakness - will consult them # cachexia/generalized weakness - no evidence of cancer on CT abdomen or chest - likely due to deconditioning as above DVT prophylaxis Lovenox Quality Stroke Does the patient have a stroke diagnosis?: No VTE Prior VTE?: No VTE Risk Level:: Medical - moderate - high VTE Device Contraindication: Treatment Not Indicated VTE Drug Contraindication: N/A - Med Ordered
[2021-11-29] MEDS: oxyCODONE HCl Immed Release 5 MG TABLET PO (21:54)
[2021-11-29 21:56] LABS: MANUAL DIFF FLAG NO
[2021-11-29 21:57] LABS: Basophils Percent Auto 0.2 % (0-2); Eosinophils Percent Auto 0.3 % (0-4); Hematocrit 29.4 % (37.0-47.0); Hemoglobin 9.3 g/dl (12.0-16.0); Imm Gran Abs Auto 0.02 X10*3/uL (0.00-0.03); Imm Gran Pct Auto 0.3 % (0.0-0.4); Lymphocytes Absolute Auto 0.7 X10*3/uL (1.2-4.9); Lymphocytes Percent Auto 12.4 % (20-40); Mean Corpuscular HGB Conc 31.6 g/dl (31.0-35.0); Mean Corpuscular Hemoglobin 28.3 pg (27.0-33.0); Mean Corpuscular Volume 89.4 fL (80.0-98.0); Mean Platelet Volume 9.3 fL (9.4-12.3); Monocytes Absolute Auto 0.3 X10*3/uL (0.1-1.2); Neutrophils Absolute Auto 4.7 x10*3/uL (2.0-8.3); Neutrophils Percent Auto 81.8 % (45-73); Platelet Count 260 X10*3/uL (160-400); Red Blood Count 3.29 X10*6/uL (4.20-5.50); Red Cell Distribution Width 21.3 % (11.0-16.0); White Blood Count 5.8 X10*3/uL (4.8-10.8)
--- NOTE | 2021-11-29 22:05 | PC.NURSE ---
patient settled in for bed, patient's cardiac cath tech removed. attempted to remove patient's EKG leads, skin started to peel off and bleed under leads. ultrasound jelly applied to sites and left on for now due to painful removal. lovenox held at this time due to patient bleeding and lack of subcutaneous tissue.
[2021-11-29 22:32] LABS: Ferritin 187 ng/mL (10-250)
--- NOTE | 2021-11-29 23:22 | PC.NURSE ---
Assumed care of pt at 2300. Pt sleeping and in NAD, even and non-labored respirations. Attached to residential monitor. Call light within reach. Awaiting inpatient bed assignment
[2021-11-30] VITALS (7 sets, daily range): BP systolic 112–135; BP diastolic 56–76; PULSE 56–79; RESP 12–20; TEMP 36.3–37.1; O2SAT 97–100; BMI 19.1
[2021-11-30] MEDS: oxyCODONE HCl Immed Release 5 MG TABLET PO ×3 (03:47→22:08)
[2021-11-30 07:26] LABS: Hematocrit 28.6 % (37.0-47.0); Hemoglobin 9.1 g/dl (12.0-16.0); Mean Corpuscular HGB Conc 31.8 g/dl (31.0-35.0); Mean Corpuscular Hemoglobin 28.2 pg (27.0-33.0); Mean Corpuscular Volume 88.5 fL (80.0-98.0); Mean Platelet Volume 8.9 fL (9.4-12.3); Platelet Count 277 X10*3/uL (160-400); Red Blood Count 3.23 X10*6/uL (4.20-5.50); Red Cell Distribution Width 21.7 % (11.0-16.0); White Blood Count 5.2 X10*3/uL (4.8-10.8)
--- NOTE | 2021-11-30 07:27 | PC.NURSE ---
Addendum entered by Scarlet Jason RN 11/30/21 10:39: No known history of pulmon CA. Pending hematology/oncology consult. Pt also specifically asked for certain type of breakfast, which was offered, and pt completed about 90% of tray. Original Note: Pt received from hourly shift manager: Pt AOX4 and offers generalized mild pain. Pt hx of pulmonary CA and weights only 38.5kg. Pt denies any anorexia but states she just does not have any appetite. Heart sounds normal and lungs diminished. Pt abd flat and non-tender. Pt 1 person assist to bedside commode.
[2021-11-30 07:36] LABS: INTERNATIONAL NORM RATIO 0.9 (0.9-1.1); Prothrombin Time 10.6 SEC (9.9-13.0)
[2021-11-30] MEDS: Omeprazole 20 MG CAPSULE.DR PO (07:45)
[2021-11-30] MEDS: Cholecalciferol (Vitamin D3) 25 MCG TABLET PO (07:45)
[2021-11-30] MEDS: Aspirin 325 MG TABLET PO ×2 (07:45→22:08)
[2021-11-30] MEDS: Cyanocobalamin (Vitamin B-12) 500 MCG TABLET PO (07:46)
[2021-11-30] MEDS: Ferrous Sulfate 324 MG TABLET.DR PO (07:46)
[2021-11-30] MEDS: Multivitamin TABLET 1 TAB PO (07:47)
[2021-11-30 07:49] LABS: Anion Gap 10 (12-20); Blood Urea Nitrogen 12 mg/dL (9-16); Calcium 7.5 mg/dL (8.4-10.2); Carbon Dioxide 32 mmol/L (22-29); Chloride 100 mmol/L (96-108); Creatinine Clr Calc Pharmacy 61.9; Estimated Glomerular Filt Rate > 60; Glucose Random 60 mg/dL (60-115); Potassium 4.5 mmol/L (3.3-5.1); Sodium 137 mmol/L (135-145)
[2021-11-30 08:35] LABS: Folate 15.1 ng/mL (> or = 4.0); Vitamin B12 1464 pg/mL (200-900)
--- NOTE | 2021-11-30 08:46 | MHC.CM.PN ---
CM phoned Patient at [phone] and her Mother/HCP/Lizbet answered the phone. Patient lives in a house with her Mother and has been using a walker since recent hip surgery. STR appears likely and a referral has been made to Patient's first choice facility- [facility]. CM has initiated and will follow for dc planning. [facility] and she has been seeing Dr. Lisandra Crespo. Patient has received Avuba vax X3.
--- NOTE | 2021-11-30 11:30 | PC.NURSE ---
Pt A&Ox3 at this time, pain 10/10 to L hip. States at this time she feels like she is paranoid from her anemia and weak, states she is unable to walk any distance at this time from the weakness even though she knows she should be walking due to the recently hip SX. Pt also said she doesn't eat red meat, asking about lunch and dinner and states she needs a certain meal. Pt is emaciated in appearance, VS as charted. Commode at bedside, call olivares within reach. Medicated as per [facility] orders for pain. Will continue to monitor.
--- NOTE | 2021-11-30 12:20 | P.CONOP_ITS ---
History of Present Illness HPI Consult date: 11/30/21 Chief complaint: Anemia, Generalized Weakness Narrative: Ms Long is a 61 yo female who was seen in the ED after presenting to the O rthopedic office c/o chest tightness and fatigue. She was standing in the office with assistance as she became weak and fell into her chair. She did not hit her head or have LOC. Upon evaluation in the ED, she was found to be anemic with h/h 7.3/23.8. She was given a unit of blood and admitted to the hospital service for further workup. Orthopedics was consulted given her recent left hip surgery. Review of Systems Review of Systems: per [facility] Past Medical History Medical History (Updated 11/30/21 @ 15:30 by Chioma Cain MD) Anemia Closed intertrochanteric fracture of femur Family History Family History (Updated 11/30/21 @ 06:29 by Kahlil Dela Cruz MD) Other No family history of coronary artery disease Surgical History Surgical History (Updated 11/30/21 @ 15:30 by Chioma Cain MD) H/O foot surgery History of hip surgery Social History Social History Household Members: Other Household Members Other:: mother Housing: House Do you presently have visiting nurse or other home services: No Alcohol intake: never Patient Tobacco Use Status: Former Tobacco user Tobacco use type: Cigarette Advance Directives: Yes Advance Directives on File: Yes Advance Directives Date on File: 11/16/21 Patient : No service: Yes Current occupational status: unemployed Meds Allergies Allergy/AdvReac Type Severity Reaction Status Date / Time No Known Allergies Allergy Unverified 11/29/21 11:24 [No Known Allergies*] Active Medications: Current Medications Acetaminophen (Acetaminophen 325 Mg Tablet) 650 mg PO Q6H PRN PRN Reason: Pain, Mild (Pain Scale 1-3) Aspirin (Aspirin 325 Mg Tablet) 325 mg PO BID [facility] Last Admin: 11/30/21 07:45 Dose: 325 mg Documented by: Cyanocobalamin (Cyanocobalamin (Vitamin B-12) 500 Mcg Tablet) 500 mcg PO DAILY [facility] Last Admin: 11/30/21 07:46 Dose: 500 mcg Documented by: Docusate Sodium (Docusate Sodium 100 Mg Capsule) 100 mg PO DAILY PRN PRN Reason: Constipation Enoxaparin Sodium (Enoxaparin Sodium 40 Mg/0.4 Ml Syringe) 40 mg SUBCUT Q24H [facility] Last Admin: 11/29/21 22:31 Dose: Not Given Documented by: Ferrous Sulfate (Ferrous Sulfate 324 Mg Tablet.) 324 mg PO DAILY [facility] Last Admin: 11/30/21 07:46 Dose: 324 mg Documented by: Multivitamins/Vitamin C (Multivitamin Tablet) 1 tab PO DAILY [facility] Last Admin: 11/30/21 07:47 Dose: 1 tab Documented by: Omeprazole (Omeprazole 20 Mg Capsule.) 20 mg PO DAILY@0630 [facility] Last Admin: 11/30/21 07:45 Dose: 20 mg Documented by: Ondansetron HCl (Ondansetron Hcl 4 Mg/2 Ml Vial) 4 mg IVPUSH Q8H PRN PRN Reason: Nausea and Vomiting Oxycodone HCl (Oxycodone Hcl Immed Release 5 Mg Tablet) 5 mg PO Q6H PRN PRN Reason: Pain, Moderate (Pain Scale 4-6 Last Admin: 11/30/21 11:27 Dose: 5 mg Documented by: Pharmacy Consult (Consult Rx Perform Med Rec) 1 each MISCELLANE ONCE PRN PRN Reason: Consult order Sodium Chloride (0.9 % Sodium Chloride Flush 3 Ml Syringe) 3 ml IVFLUSH QSHIFT [facility] Last Admin: 11/30/21 07:47 Dose: Not Given Documented by: Vitamin D (Cholecalciferol (Vitamin D3) 25 Mcg Tablet) 25 mcg PO DAILY [facility] Last Admin: 11/30/21 07:45 Dose: 25 mcg Documented by: Home Medications Medication Instructions Recorded Confirmed Last Taken Type cholecalciferol (vitamin D3) 25 25 mcg PO DAILY 11/15/21 11/29/21 11/14/21 History mcg (1,000 unit) capsule (Vitamin D3) cyanocobalamin (vitamin B-12) 500 500 mcg PO DAILY 11/15/21 11/29/21 11/14/21 History mcg tablet cyycckfk-epieznmk-ceyc 8 mg-folic 1 tab PO DAILY 11/15/21 11/29/21 11/14/21 History ac 400 mcg-vit K 10 mcg chew tablet (Centrum Chewables) Physical Exam Vital Signs: Vital Signs: Last Vital Signs Temp 98.4 F 11/30/21 07:35 Pulse 79 11/30/21 11:18 Resp 20 11/30/21 11:18 BP 121/67 11/30/21 11:18 Pulse Ox 100 11/30/21 11:18 BMI result Body Mass Index 19.1 Const: General: cooperative, comfortable and no acute distress Extrem: Other: left hip nathan intact. No swelling or erythema. Results Labs Result Diagrams: 11/30/21 07:08 11/30/21 07:08 Labs: Abnormal lab results 11/29/21 11/29/21 11/29/21 Range/Units 12:46 12:46 15:54 RBC 2.67 L D (4.20-5.50) X10*6/uL Hgb 7.3 L D (12.0-16.0) g/dl Hct 23.8 L D (37.0-47.0) % MCHC 30.7 L (31.0-35.0) g/dl RDW 25.2 H (11.0-16.0) % MPV 9.3 L (9.4-12.3) fL Neut % (Auto) (45-73) % Lymph % (Auto) (20-40) % Lymph # (Auto) (1.2-4.9) X10*3/uL Immature Retic Fraction 25.1 H (3.0-15.9) % Potassium 3.2 L D (3.3-5.1) mmol/L Carbon Dioxide (22-29) mmol/L Anion Gap (12-20) Random Glucose 199 H (60-115) mg/dL Calcium 7.8 L D (8.4-10.2) mg/dL TIBC 217 L (228-428) mcg/dL Total Bilirubin 1.3 H (0.0-1.0) mg/dL AST 76 H (5-31) U/L ALT 92 H (0-31) U/L Alkaline Phosphatase 221 H D (39-117) U/L Lactate Dehydrogenase 469 H (122-220) U/L Total Protein 4.6 L (6.5-8.0) g/dL Albumin 2.3 L D (3.5-5.0) g/dL Vitamin B12 (200-900) pg/mL Crossmatch See Detail 11/29/21 11/29/21 11/30/21 Range/Units 21:50 21:50 07:08 RBC 3.29 L D 3.23 L (4.20-5.50) X10*6/uL Hgb 9.3 L D 9.1 L (12.0-16.0) g/dl Hct 29.4 L D 28.6 L (37.0-47.0) % MCHC (31.0-35.0) g/dl RDW 21.3 H 21.7 H (11.0-16.0) % MPV 9.3 L 8.9 L (9.4-12.3) fL Neut % (Auto) 81.8 H (45-73) % Lymph % (Auto) 12.4 L (20-40) % Lymph # (Auto) 0.7 L (1.2-4.9) X10*3/uL Immature Retic Fraction (3.0-15.9) % Potassium (3.3-5.1) mmol/L Carbon Dioxide (22-29) mmol/L Anion Gap (12-20) Random Glucose (60-115) mg/dL Calcium (8.4-10.2) mg/dL TIBC (228-428) mcg/dL Total Bilirubin (0.0-1.0) mg/dL AST (5-31) U/L ALT (0-31) U/L Alkaline Phosphatase (39-117) U/L Lactate Dehydrogenase (122-220) U/L Total Protein (6.5-8.0) g/dL Albumin (3.5-5.0) g/dL Vitamin B12 1464 H (200-900) pg/mL Crossmatch 11/30/21 Range/Units 07:08 RBC (4.20-5.50) X10*6/uL Hgb (12.0-16.0) g/dl Hct (37.0-47.0) % MCHC (31.0-35.0) g/dl RDW (11.0-16.0) % MPV (9.4-12.3) fL Neut % (Auto) (45-73) % Lymph % (Auto) (20-40) % Lymph # (Auto) (1.2-4.9) X10*3/uL Immature Retic Fraction (3.0-15.9) % Potassium (3.3-5.1) mmol/L Carbon Dioxide 32 H (22-29) mmol/L Anion Gap 10 L (12-20) Random Glucose (60-115) mg/dL Calcium 7.5 L (8.4-10.2) mg/dL TIBC (228-428) mcg/dL Total Bilirubin (0.0-1.0) mg/dL AST (5-31) U/L ALT (0-31) U/L Alkaline Phosphatase (39-117) U/L Lactate Dehydrogenase (122-220) U/L Total Protein (6.5-8.0) g/dL Albumin (3.5-5.0) g/dL Vitamin B12 (200-900) pg/mL Crossmatch H & H 11/29/21 11/29/21 11/30/21 Range/Units 12:46 21:50 07:08 Hgb 7.3 L D 9.3 L D 9.1 L (12.0-16.0) g/dl Hct 23.8 L D 29.4 L D 28.6 L (37.0-47.0) % Coagulation 11/30/21 Range/Units 07:08 INR 0.9 (0.9-1.1) All other labs normal. Assessment and Plan (1) Closed intertrochanteric fracture of femur: Status: Acute Plan Pain mgmnt PT/OT for Left hip IMN-wbat lovenox for dvt ppx x4 weeks-ok to do asa 325 if high risk of bleeding. dispo-recommend STR for optimization Procedures Date of Service Date of Service: 11/30/21
--- NOTE | 2021-11-30 12:54 | MHC.CDI.CONC ---
CDI Concurrent Query Documentation Clarification: PHYSICIAN'S DOCUMENTATION REQUEST Date of Query: 11/30/21 125 Patient Name: Karen Long Admit Date: 11/29/21 Dear Doctor, A review of the medical record indicates additional documentation may be needed. Please review below and update the documentation accordingly. Clinical Indicators: Documentation includes the diagnosis of malnutrition. Additional clinical indicators from the record include: Risk Factors/Clinical Indicators/Treatments H&P 11/29 - malnourished, deconditioning, poor intake, thin and frail. BMI 19.1 Albumin 2.3 Total protein 4.6 ASPEN Criteria* Acute Illness Chronic Illness Clinical Characteristic Non-Severe (2 or more criteria present) Severe (2 or more criteria present) Non-Severe (2 or more criteria present) Severe (2 or more criteria present) Energy Intake <75% for >7 days <=50% for >=5 days <75% for >=1 month <=75% for >=1 month Weight Loss 1 week 1 ? 2% >2% N/A N/A 1 month 5% >5% 5% >5% 3 months 7.5 % >7.5% 7.5% >7.5% 6 months N/A N/A 10% >10% 1 year N/A N/A 20% >20% Body Fat Mild Moderate Mild Severe Muscle Mass Mild Moderate Mild Severe Fluid Accumulation Mild Moderate to Severe Mild Severe Reduced Consumer Relations Complaint Clerk Strength N/A Measurably Reduced N/A Measurably Reduced *[facility] Hospitalist, 2017 If possible, please provide in your progress notes, additional specificity regarding the severity of the malnutrition using the above information: Mild Moderate Severe Other (please specify) Unable to determine Use of terms such as suspected, likely, concern for, or probable (associated with a specific diagnosis that is being evaluated, monitored, or treated as if it exists) are acceptable and can be coded in the inpatient setting, when documented at the time of discharge. Thank you, Nannette Duong [facility], CDIS Extension: [phone] Please use your independent medical judgment in providing your response. THIS QUERY IS PART OF THE PERMANENT MEDICAL RECORD Provider Response: Other Other Diagnosis: moderately severe malnutrition
[2021-11-30 13:42] LABS: Haptoglobin 43 mg/dL (43-212)
--- NOTE | 2021-11-30 15:23 | MHC.CLN ---
NUTRITION CONSULT FOR MALNUTRITION. SEE CLINICAL NUTRITION ASSESSMENT. NUTRITION DX MODERATE MALNUTRITION IN THE CONTEXT OF SOCIAL BEHAVIORAL/ENVIRONMENTAL CIRCUMSTANCES. KNOWN FROM PRIOR ADMISSION. DISLIKES SUPPLEMENTS AND DOES NOT WANT. ADDITIONAL WEIGHT LOSS SINCE ADMISSION EARLIER THIS MONTH. NOW WITH SIGNIFICANT WEIGHT LOSS -13.3% X 3 MONTHS. ABLE TO MAKE FOOD CHOICES. CONTINUE REGULAR DIET. PROVIDE FOOD PREFERENCES AND SNACK ABLE.
--- NOTE | 2021-11-30 15:30 | PM.HEMONCCN ---
Subjective - Subjective Chief complaint: Anemia Patient: new to practice Consult date: 11/30/21 Requesting Physician: Dr. Dela Cruz Primary Care Provider: Unknown Physician HPI - Consult Narrative Reason for consult: anemia Narrative: Karen Long is a 61 year old female who is admitted for recurrent anemia. Patient has not seen a physician in over 20 years. She presented initially to [facility] in November2021 after a fall and injury. At that time she was noted to be anemic with a hemoglobin of 7.7 gram/dL. She had a mechanical fall and suffered a a fracture of her left hip, she underwent left hip IMN on 11/16/2021. She received a unit of blood transfusion prior to surgery. She was trying to undergo physical therapy for her hip which she has become progressively weak and has been finding it hard even to get out of bed. She reports extreme weakness and shortness of breath with minimal activity. She was found to be anemic again with hemoglobin below 8 gram/dL and received another unit of blood transfusion on 11/29/2021. Patient also reports that the last time she saw physician and was told of anemia was 22 years ago when she received blood transfusion. She has a compulsive runner, has been running 9-10 miles on a daily basis for as long as she can remember. Since August 2021 she has been feeling extremely weak and tired. She stopped working when the pandemic started in January 2020. She has been taking oral iron supplementation. She reports swelling of both her legs. She states that she is unable to eat as she gets full very quickly. Review of Systems - Constitutional Reports as per HPI, Reports poor appetite, Reports weight loss - Cardiovascular Reports no additional cardiovascular complaints - Respiratory Reports no additional respiratory complaints - Gastrointestinal Reports no additional gastrointestinal complaints Oncology Screenings - ECOG Performance Status ECOG Performance Status: 3 [facility] Medical History: Medical History (Last Reviewed 11/30/21 @ 13:32 by Bita Rosales, PT) Anemia Closed intertrochanteric fracture of femur Family History: Family History (Last Updated 11/30/21 @ 06:29 by Kahlil Dela Cruz MD) Other No family history of coronary artery disease Surgical History: Surgical History (Last Reviewed 11/30/21 @ 13:32 by Bita Rosales, PT) H/O foot surgery History of hip surgery Social History: Social History (Last Reviewed 11/30/21 @ 06:28 by Kahlil Dela Cruz MD) Living Situation History: Household Members: Other Household Members Other:: mother Housing: House Do you presently have visiting nurse or other home services: No Tobacco History: Patient Tobacco Use Status: Former Tobacco user Tobacco use type: Cigarette Advance Directives: Advance Directives: Yes Advance Directives on File: Yes Advance Directives Date on File: 11/16/21 Nutrition Assessment: Patient : No Occupation Assessmet: service: Yes Current occupational status: unemployed Home Medications and Allergies Current Medications: Current Medications Acetaminophen (Acetaminophen 325 Mg Tablet) 650 mg PO Q6H PRN PRN Reason: Pain, Mild (Pain Scale 1-3) Aspirin (Aspirin 325 Mg Tablet) 325 mg PO BID [facility] Last Admin: 11/30/21 07:45 Dose: 325 mg Documented by: Cyanocobalamin (Cyanocobalamin (Vitamin B-12) 500 Mcg Tablet) 500 mcg PO DAILY [facility] Last Admin: 11/30/21 07:46 Dose: 500 mcg Documented by: Docusate Sodium (Docusate Sodium 100 Mg Capsule) 100 mg PO DAILY PRN PRN Reason: Constipation Enoxaparin Sodium (Enoxaparin Sodium 40 Mg/0.4 Ml Syringe) 40 mg SUBCUT Q24H [facility] Last Admin: 11/29/21 22:31 Dose: Not Given Documented by: Ferrous Sulfate (Ferrous Sulfate 324 Mg Tablet.) 324 mg PO DAILY [facility] Last Admin: 11/30/21 07:46 Dose: 324 mg Documented by: Multivitamins/Vitamin C (Multivitamin Tablet) 1 tab PO DAILY [facility] Last Admin: 11/30/21 07:47 Dose: 1 tab Documented by: Omeprazole (Omeprazole 20 Mg Capsule.) 20 mg PO DAILY@0630 [facility] Last Admin: 11/30/21 07:45 Dose: 20 mg Documented by: Ondansetron HCl (Ondansetron Hcl 4 Mg/2 Ml Vial) 4 mg IVPUSH Q8H PRN PRN Reason: Nausea and Vomiting Oxycodone HCl (Oxycodone Hcl Immed Release 5 Mg Tablet) 5 mg PO Q6H PRN PRN Reason: Pain, Moderate (Pain Scale 4-6 Last Admin: 11/30/21 11:27 Dose: 5 mg Documented by: Pharmacy Consult (Consult Rx Perform Med Rec) 1 each MISCELLANE ONCE PRN PRN Reason: Consult order Sodium Chloride (0.9 % Sodium Chloride Flush 3 Ml Syringe) 3 ml IVFLUSH QSHIFT [facility] Last Admin: 11/30/21 07:47 Dose: Not Given Documented by: Vitamin D (Cholecalciferol (Vitamin D3) 25 Mcg Tablet) 25 mcg PO DAILY [facility] Last Admin: 11/30/21 07:45 Dose: 25 mcg Documented by: Home Medications Medication Instructions Recorded Confirmed Type cholecalciferol (vitamin D3) 25 25 mcg PO DAILY 11/15/21 11/29/21 History mcg (1,000 unit) capsule (Vitamin D3) cyanocobalamin (vitamin B-12) 500 500 mcg PO DAILY 11/15/21 11/29/21 History mcg tablet knxojpez-iilqxqjw-tjss 8 mg-folic 1 tab PO DAILY 11/15/21 11/29/21 History ac 400 mcg-vit K 10 mcg chew tablet (Centrum Chewables) Allergies Allergy/AdvReac Type Severity Reaction Status Date / Time No Known Allergies Allergy Unverified 11/29/21 11:24 [No Known Allergies*] Physical Exam Vital signs: Vital Signs Temp 97.4 F 11/30/21 15:15 Pulse 64 11/30/21 15:15 Resp 16 11/30/21 15:15 BP 112/56 L 11/30/21 15:15 Pulse Ox 100 11/30/21 15:15 Intake & Output 11/29/21 11/30/21 11/30/21 18:59 06:59 18:59 Intake Total 0 / 1350 1350 / 1350 Balance 0 / 1350 1350 / 1350 Intake: Intake (Blood Product) Amount 0 / 350 350 / 350 Red Blood Cells (E0382) Unit 0 / 350 350 / 350 [id number] Intake, IV Amount 1000 / 1000 Lactated Ringers 1,000 ml @ 999 1000 / 1000 mls/hr IV .Q1H1M [facility] Rx#: [id number] Other: Number of Unmeasured Voids 1 Urine Bathroom Urine Color Yellow Weight 38.555 kg 38.555 kg Weight 38.555 kg - Constitutional Present: mild distress, cachectic, chronically ill appearing - Routine HEENT Exam Head: Present: atraumatic Eye: Present: conjunctivae pale - Routine Neck Exam Absent: lymphadenopathy - Routine Respiratory Exam Present: CTAB. Absent: accessory muscle use, respiratory distress - Routine Cardiovascular Exam Cardiovascular: Present: S1, S2 - Routine Abdominal Exam Present: soft - Routine Extremities Exam Present: pedal edema Comments: Erythema and swelling of lower extremities. - Routine Skin Exam Present: erythema - Routine Neurological Exam Present: alert, oriented X3 - Routine Psychiatric Exam Present: anxious Hem/Onc Consult Result - Labs CBC & Chem 7: 11/30/21 07:08 11/30/21 07:08 Labs: Short CBC 11/29/21 11/30/21 Range/Units 21:50 07:08 WBC 5.8 5.2 (4.8-10.8) X10*3/uL Hgb 9.3 L D 9.1 L (12.0-16.0) g/dl Hct 29.4 L D 28.6 L (37.0-47.0) % Plt Count 260 277 (160-400) X10*3/uL BMP 11/30/21 07:08 Sodium 137 Potassium 4.5 D Chloride 100 Carbon Dioxide 32 H BUN 12 Creatinine 0.54 Calcium 7.5 L Liver Function 11/29/21 Range/Units 12:46 Total Bilirubin 1.3 H (0.0-1.0) mg/dL Direct Bilirubin 0.4 (0.0-0.5) mg/dL AST 76 H (5-31) U/L ALT 92 H (0-31) U/L Alkaline Phosphatase 221 H D (39-117) U/L Albumin 2.3 L D (3.5-5.0) g/dL Assessment and Plan Patient Active problem list reviewed?: Yes (1) Normocytic anemia Status: Acute Assessment and plan: 1. This is a 61-year-old woman with moderately severe normocytic anemia diagnosed in October 2021. She is cachectic and severely malnourished. She has been running 9-10 miles daily until she broke her leg in November 2021. She has not seen a physician in over 20 years. She has been taking oral iron and vitamin B12 supplementation. Although LDH is slightly elevated, haptoglobin level is not decreased, Krystal test is negative. She has very mild hyperbilirubinemia therefore probably not brisk hemolysis. Her kidney functions are normal. CT chest/abdomen and pelvis does not show any acute pathology. 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 I have submitted hematological workup as well as preliminary workup for autoimmune disorders. Probable etiologies are severe protein calorie malnutrition causing anemia, low-grade Krystal negative hemolysis, bone marrow disorder such as lymphoma, plasma cell dyscrasia and MDS, other systemic illness such as autoimmune disorders, ?eating disorder. I recommend nutrition consult and psychiatric evaluation. Thank you for the consult, will follow with you. - Time Spent With Patient Time Spent with Patient (in minutes): 25
--- NOTE | 2021-11-30 15:59 | P.PNIM_ITS ---
Subjective Subjective Date of Service: 11/30/21 Interval History: no acute events overnight. Chronically ill-appearing Review of Systems denies chest pain Denies shortness of breath Denies nausea and diarrhea admits to nervousness and anxiety Physical Exam Vital Signs: Vital Signs: Last Vital Signs Temp 97.4 F 11/30/21 15:15 Pulse 64 11/30/21 15:15 Resp 16 11/30/21 15:15 BP 112/56 L 11/30/21 15:15 Pulse Ox 100 11/30/21 15:15 BMI result Body Mass Index 19.1 Const: Other: awake alert anxious. cachectic; ill-appearing Resp: Other: clear to auscultation bilaterally no rales rhonchi or wheezes Cardio: Other: no S4; positive S1-S2; no S3 or murmurs rubs or gallops GI: Other: soft nontender nondistended normoactive bowel Neuro: Other: cranial nerves 2-12 grossly intact as tested; motor 5/5 all extremities sensa tion in Objective Data Active Medications Acetaminophen (Acetaminophen 325 Mg Tablet) 650 mg PO Q6H PRN PRN Reason: Pain, Mild (Pain Scale 1-3) Aspirin (Aspirin 325 Mg Tablet) 325 mg PO BID [facility] Last Admin: 11/30/21 07:45 Dose: 325 mg Documented by: WHITNEY Cyanocobalamin (Cyanocobalamin (Vitamin B-12) 500 Mcg Tablet) 500 mcg PO DAILY [facility] Last Admin: 11/30/21 07:46 Dose: 500 mcg Documented by: WHITNEY Docusate Sodium (Docusate Sodium 100 Mg Capsule) 100 mg PO DAILY PRN PRN Reason: Constipation Enoxaparin Sodium (Enoxaparin Sodium 40 Mg/0.4 Ml Syringe) 40 mg SUBCUT Q24H [facility] Last Admin: 11/29/21 22:31 Dose: Not Given Documented by: MIMI Non-Admin Reason: See Note Ferrous Sulfate (Ferrous Sulfate 324 Mg Tablet.) 324 mg PO DAILY [facility] Last Admin: 11/30/21 07:46 Dose: 324 mg Documented by: WHITNEY Dextrose/Sodium Chloride (D5ns) 1,000 mls @ 125 mls/hr IVCONT .Q8H [facility] Multivitamins/Vitamin C (Multivitamin Tablet) 1 tab PO DAILY [facility] Last Admin: 11/30/21 07:47 Dose: 1 tab Documented by: WHITNEY Omeprazole (Omeprazole 20 Mg Capsule.) 20 mg PO DAILY@0630 [facility] Last Admin: 11/30/21 07:45 Dose: 20 mg Documented by: WHITNEY Ondansetron HCl (Ondansetron Hcl 4 Mg/2 Ml Vial) 4 mg IVPUSH Q8H PRN PRN Reason: Nausea and Vomiting Oxycodone HCl (Oxycodone Hcl Immed Release 5 Mg Tablet) 5 mg PO Q6H PRN PRN Reason: Pain, Moderate (Pain Scale 4-6 Last Admin: 11/30/21 11:27 Dose: 5 mg Documented by: ANGEL Pharmacy Consult (Consult Rx Perform Med Rec) 1 each MISCELLANE ONCE PRN PRN Reason: Consult order Sodium Chloride (0.9 % Sodium Chloride Flush 3 Ml Syringe) 3 ml IVFLUSH QSHIFT [facility] Last Admin: 11/30/21 07:47 Dose: Not Given Documented by: WHITNEY Non-Admin Reason: Med Not Available Vitamin D (Cholecalciferol (Vitamin D3) 25 Mcg Tablet) 25 mcg PO DAILY [facility] Last Admin: 11/30/21 07:45 Dose: 25 mcg Documented by: WHITNEY Labs CBC & Chem 7: 11/30/21 07:08 11/30/21 07:08 Labs: Laboratory Results - last 24 hr 11/29/21 11/29/21 11/29/21 12:46 12:46 15:54 MCV MCH MCHC RDW Plt Count MPV Immature Gran % (Auto) Neut % (Auto) Lymph % (Auto) [place] % (Auto) Eos % (Auto) Baso % (Auto) Lymph # (Auto) [place] # (Auto) Eos # (Auto) Baso # (Auto) Abs Immat Gran (auto) Absolute Neuts (auto) Absolute Nucleated RBC Nucleated RBC % (auto) Haptoglobin 43 PT INR Anion Gap Estim Creat Clear Calc Estimated GFR Random Glucose Calcium Ferritin Total Bilirubin 1.3 H Direct Bilirubin 0.4 AST 76 H ALT 92 H Alkaline Phosphatase 221 H D Lactate Dehydrogenase 469 H Total Protein 4.6 L Albumin 2.3 L D Vitamin B12 Folate Blood Type O Positive Antibody Screen NEGATIVE NARINDER, Polyspecific NEGATIVE Positive NARINDER Work-up TNP Crossmatch See Detail 11/29/21 11/29/21 11/29/21 21:50 21:50 21:50 MCV 89.4 MCH 28.3 MCHC 31.6 RDW 21.3 H Plt Count 260 MPV 9.3 L Immature Gran % (Auto) 0.3 Neut % (Auto) 81.8 H Lymph % (Auto) 12.4 L [place] % (Auto) 5.0 Eos % (Auto) 0.3 Baso % (Auto) 0.2 Lymph # (Auto) 0.7 L [place] # (Auto) 0.3 Eos # (Auto) 0.0 Baso # (Auto) 0.0 Abs Immat Gran (auto) 0.02 Absolute Neuts (auto) 4.7 Absolute Nucleated RBC 0.000 Nucleated RBC % (auto) 0.0 Haptoglobin PT INR Anion Gap Estim Creat Clear Calc Estimated GFR Random Glucose Calcium Ferritin 187 Total Bilirubin Direct Bilirubin AST ALT Alkaline Phosphatase Lactate Dehydrogenase Total Protein Albumin Vitamin B12 1464 H Folate 15.1 Blood Type Antibody Screen NARINDER, Polyspecific Positive NARINDER Work-up Crossmatch 11/30/21 11/30/21 11/30/21 07:08 07:08 07:08 MCV 88.5 MCH 28.2 MCHC 31.8 RDW 21.7 H Plt Count 277 MPV 8.9 L Immature Gran % (Auto) Neut % (Auto) Lymph % (Auto) [place] % (Auto) Eos % (Auto) Baso % (Auto) Lymph # (Auto) [place] # (Auto) Eos # (Auto) Baso # (Auto) Abs Immat Gran (auto) Absolute Neuts (auto) Absolute Nucleated RBC 0.000 Nucleated RBC % (auto) 0.0 Haptoglobin PT 10.6 INR 0.9 Anion Gap 10 L Estim Creat Clear Calc 61.9 Estimated GFR > 60 Random Glucose 60 Calcium 7.5 L Ferritin Total Bilirubin Direct Bilirubin AST ALT Alkaline Phosphatase Lactate Dehydrogenase Total Protein Albumin Vitamin B12 Folate Blood Type Antibody Screen NARINDER, Polyspecific Positive NARINDER Work-up Crossmatch Assessment and Plan (1) Cachexia: Status: Acute (2) Anemia: Status: Acute (3) Closed intertrochanteric fracture of femur: Status: Acute Plan 61-year-old female with past medical history of recent hip fracture status post IM nail as well as normocytic anemia presents to the hospital with complaints of generalized weakness found to have anemia and failure to thrive 1.Normocytic anemia - work up thus darin unremarkable - transfused 1 unit of PRBC - consult hematology - follow H&H 2.Failure to thrive - appears to be secondary to deconditioning as well as malnutrition - PT OT - case management consult 3.Closed inter current Chris fracture femur status post IM nail - as per Ortho 4.Moderate protein malnutrition cachexia/generalized weakness - 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
[2021-11-30] MEDS: oxyCODONE HCl Immed Release 5 MG TABLET 10 MG PO (16:01)
[2021-11-30] MEDS: Dextrose 5 % and 0.9 % NaCl 1,000 ML 125 ML IVCONT (16:02)
[2021-11-30 16:21] LABS: Phosphorus 1.6 mg/dL (2.7-4.5)
[2021-11-30 16:32] LABS: Erythrocyte Sedimentation Rate 5 MM/HR (0-20)
[2021-11-30 16:35] LABS: Rheumatoid Factor < 15.0 IU/mL (<15.0)
--- NOTE | 2021-11-30 16:35 | PC.NURSE ---
Pt medicated w/one time dose of pain medication. Fluids started as per MAR orders, while in room patient started to say she doesn't know why we can't give her any answers and she feels like when she just sent her mother home it was the last time she was going to see her because they are both going to , the patient states she is going to before her mother because no one can figure out what is wrong with her. made aware
[2021-11-30] MEDS: Potassium Phosphate/NS 15 MMOL/250 ML PLAST..BAG 62.5 MMOL IV (19:24)
[2021-11-30] MEDS: 0.9 % Sodium Chloride Flush 3 ML SYRINGE IVFLUSH (23:55)
[2021-12-01 00:01] VITALS: BP 118/63; PULSE 61; RESP 14; O2SAT 98
[2021-12-01] MEDS: Dextrose 5 % and 0.9 % NaCl 1,000 ML 125 ML IVCONT (00:44)
[2021-12-01 06:05] VITALS: BP 128/61; PULSE 59; RESP 12; O2SAT 99
[2021-12-01] MEDS: Omeprazole 20 MG CAPSULE.DR PO (06:12)
[2021-12-01] MEDS: Cyanocobalamin (Vitamin B-12) 500 MCG TABLET PO (08:07)
[2021-12-01] MEDS: Aspirin 325 MG TABLET PO ×2 (08:07→21:57)
[2021-12-01] MEDS: Multivitamin TABLET 1 TAB PO (08:08)
[2021-12-01] MEDS: Cholecalciferol (Vitamin D3) 25 MCG TABLET PO (08:08)
[2021-12-01] MEDS: Ferrous Sulfate 324 MG TABLET.DR PO (08:08)
[2021-12-01 09:22] VITALS: BP 128/61; PULSE 59; O2SAT 99
[2021-12-01 09:48] VITALS: BP 141/85; PULSE 85; RESP 14; TEMP 36.7; O2SAT 100
[2021-12-01] MEDS: oxyCODONE HCl Immed Release 5 MG TABLET PO ×3 (09:48→21:57)
[2021-12-01] MEDS: Potassium Phosphate/NS 15 MMOL/250 ML PLAST..BAG 62.5 MMOL IV (10:50)
--- NOTE | 2021-12-01 12:06 | PC.NURSE ---
Pt resting in the hospital bed. Pt tolerated PT well when she had the eval, medicated per MAR with daily meds and PRNs for pain. Pt incision looks clean dry and intact. pt anxious and wanting to go upstairs. redirection and reassurance provided. Call olivares and belongings within reach.
[2021-12-01 12:41] LABS: Anti Nuclear Antibody Screen NEGATIVE (NEGATIVE)
--- NOTE | 2021-12-01 14:01 | MHC.CM.PN ---
CM SPOKE TO WA[facility] AT THE [facility]. SHE REPORTS THE PT HAS NO SEEN A PCP OR ANY PROVIDER THERE SINCE 2017. 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
[2021-12-01 15:16] LABS: Prot Elec - Albumin 2.1 g/dL (3.8-4.8); Prot Elec - Alpha1 0.3 g/dL (0.2-0.3); Prot Elec - Alpha2 0.6 g/dL (0.5-0.9); Prot Elec - Beta 1 0.3 g/dL (0.4-0.6); Prot Elec - Beta 2 0.3 g/dL (0.2-0.5); Prot Elec - Gamma 0.6 g/dL (0.8-1.7); Prot Elec - Total Protein 4.2 g/dL (6.1-8.1)
--- NOTE | 2021-12-01 15:42 | P.PNIM_ITS ---
Subjective Subjective Date of Service: 12/01/21 Interval History: no acute events overnight. Chronically ill-appearing Review of Systems denies chest pain Denies shortness of breath Denies nausea and diarrhea admits to nervousness and anxiety Physical Exam Vital Signs: Vital Signs: Last Vital Signs Temp 98.1 F 12/01/21 09:48 Pulse 85 12/01/21 09:48 Resp 14 12/01/21 09:48 BP 141/85 H 12/01/21 09:48 Pulse Ox 100 12/01/21 09:48 BMI result Body Mass Index 19.1 Const: Other: awake alert anxious. cachectic; ill-appearing Resp: Other: clear to auscultation bilaterally no rales rhonchi or wheezes Cardio: Other: no S4; positive S1-S2; no S3 or murmurs rubs or gallops GI: Other: soft nontender nondistended normoactive bowel Neuro: Other: cranial nerves 2-12 grossly intact as tested; motor 5/5 all extremities sensa tion in Objective Data Active Medications Acetaminophen (Acetaminophen 325 Mg Tablet) 650 mg PO Q6H PRN PRN Reason: Pain, Mild (Pain Scale 1-3) Aspirin (Aspirin 325 Mg Tablet) 325 mg PO BID [facility] Last Admin: 12/01/21 08:07 Dose: 325 mg Documented by: DASHA Cyanocobalamin (Cyanocobalamin (Vitamin B-12) 500 Mcg Tablet) 500 mcg PO DAILY [facility] Last Admin: 12/01/21 08:07 Dose: 500 mcg Documented by: DASHA Docusate Sodium (Docusate Sodium 100 Mg Capsule) 100 mg PO DAILY PRN PRN Reason: Constipation Enoxaparin Sodium (Enoxaparin Sodium 40 Mg/0.4 Ml Syringe) 40 mg SUBCUT Q24H [facility] Last Admin: 11/30/21 22:08 Dose: Not Given Documented by: RYLEY Non-Admin Reason: Patient Refused Ferrous Sulfate (Ferrous Sulfate 324 Mg Tablet.) 324 mg PO DAILY [facility] Last Admin: 12/01/21 08:08 Dose: 324 mg Documented by: DASHA Dextrose/Sodium Chloride (D5ns) 1,000 mls @ 125 mls/hr IVCONT .Q8H [facility] Last Infusion: 12/01/21 09:44 Dose: 0 mls/hr Documented by: DASHA Albumin Human (Kedbumin 25 %) 100 mls @ 100 mls/hr IV Q1H [facility] Stop: 12/01/21 17:44 Multivitamins/Vitamin C (Multivitamin Tablet) 1 tab PO DAILY [facility] Last Admin: 12/01/21 08:08 Dose: 1 tab Documented by: DASHA Omeprazole (Omeprazole 20 Mg Capsule.Dr) 20 mg PO DAILY@0630 [facility] Last Admin: 12/01/21 06:12 Dose: 20 mg Documented by: CANDIDA Ondansetron HCl (Ondansetron Hcl 4 Mg/2 Ml Vial) 4 mg IVPUSH Q8H PRN PRN Reason: Nausea and Vomiting Oxycodone HCl (Oxycodone Hcl Immed Release 5 Mg Tablet) 5 mg PO Q6H PRN PRN Reason: Pain, Moderate (Pain Scale 4-6 Last Admin: 12/01/21 09:48 Dose: 5 mg Documented by: DASHA Pharmacy Consult (Consult Rx Perform Med Rec) 1 each MISCELLANE ONCE PRN PRN Reason: Consult order Sodium Chloride (0.9 % Sodium Chloride Flush 3 Ml Syringe) 3 ml IVFLUSH QSHIFT [facility] Last Admin: 12/01/21 15:38 Dose: Not Given Documented by: DASHA Non-Admin Reason: Med Not Available Vitamin D (Cholecalciferol (Vitamin D3) 25 Mcg Tablet) 25 mcg PO DAILY [facility] Last Admin: 12/01/21 08:08 Dose: 25 mcg Documented by: DASHA Labs CBC & Chem 7: 11/30/21 07:08 11/30/21 07:08 Labs: Laboratory Results - last 24 hr 11/29/21 11/30/21 11/30/21 15:54 07:08 07:08 ESR 5 Phosphorus Total Protein (PEP) 4.2 L Albumin (PEP) 2.1 L Qomud-1-Tegdhnzse 0.3 Uzrsm-1-Mugotffbv 0.6 Kiza-7-Olyvyjwt 0.3 L Htpj-8-Zcxpszfd 0.3 Gamma Globulins 0.6 L PEP Interpretation SEE NOTE Rheumatoid Factor TERRI Screen NARINDER, Polyspecific NEGATIVE Positive NARINDER Work-up TNP 11/30/21 11/30/21 12/01/21 07:08 07:08 08:50 ESR Phosphorus 1.6 L 2.0 L Total Protein (PEP) Albumin (PEP) Mftet-0-Taomcwnge Luorf-6-Fnscbzhxl Skcp-5-Ejcoieos Htmn-5-Rubcauae Gamma Globulins PEP Interpretation Rheumatoid Factor < 15.0 TERRI Screen NEGATIVE NARINDER, Polyspecific Positive NARINDER Work-up Assessment and Plan (1) Normocytic anemia: Status: Acute (2) Failure to thrive in adult: Status: Acute (3) Closed intertrochanteric fracture of femur: Status: Acute Plan 61-year-old female with past medical history of recent hip fracture status post IM nail as well as normocytic anemia presents to the hospital with complaints of generalized weakness found to have anemia and failure to thrive 1.Normocytic anemia - work up thus darin unremarkable - follow H&H 2.Failure to thrive - appears to be secondary to deconditioning as well as malnutrition - PT OT - case management consult 3.Closed inter current Chris fracture femur status post IM nail - as per Ortho 4.Moderate protein malnutrition cachexia/generalized weakness - para operator consult; add on Phos - psych consult...query eating disorder DVT prophylaxis Lovenox Quality Stroke Does the patient have a stroke diagnosis?: No VTE Prior VTE?: No VTE Risk Level:: Medical - moderate - high VTE Device Contraindication: Treatment Not Indicated VTE Drug Contraindication: N/A - Med Ordered
[2021-12-01] MEDS: Dextrose 5 % and 0.9 % NaCl 1,000 ML 120 ML IVCONT ×2 (16:03→21:57)
[2021-12-01 18:16] VITALS: BP 158/75; PULSE 69; RESP 14; TEMP 36.6; O2SAT 98
--- NOTE | 2021-12-01 19:35 | PM.PNORT ---
Subjective Subjective Date of Service: 12/01/21 Interval history: 2 wks s/p Left hip IMN She is sitting up in bed, eating breakfast states she worked with PT yesterday and felt good less pain today Physical Exam Vital Signs: Vital Signs: Last Vital Signs Temp 97.8 F 12/01/21 18:16 Pulse 69 12/01/21 18:16 Resp 14 12/01/21 18:16 BP 158/75 H 12/01/21 18:16 Pulse Ox 98 12/01/21 18:16 BMI result Body Mass Index 19.1 Extrem: Other: Left hip nathan intact, no swelling. Several skin abraisons without purulant discharge. Procedures Date of Service Date of Service: 12/01/21 Progress Note: A&P Assessment and plan (1) Closed intertrochanteric fracture of femur: Status: Acute Assessment and Plan: Nathan removed today, steri strips applied. She should continue dvt ppx for another 4 weeks. Continue to work with PT/OT for strength, ADLs, gait training Skin abraisons were covered with xeroform and foam bandages. She should follow up with orthopedic office in 4 weeks with xrays Fall Risk Details Current Medications: Current Medications Acetaminophen (Acetaminophen 325 Mg Tablet) 650 mg PO Q6H PRN PRN Reason: Pain, Mild (Pain Scale 1-3) Aspirin (Aspirin 325 Mg Tablet) 325 mg PO BID [facility] Last Admin: 12/01/21 08:07 Dose: 325 mg Documented by: Cyanocobalamin (Cyanocobalamin (Vitamin B-12) 500 Mcg Tablet) 500 mcg PO DAILY [facility] Last Admin: 12/01/21 08:07 Dose: 500 mcg Documented by: Docusate Sodium (Docusate Sodium 100 Mg Capsule) 100 mg PO DAILY PRN PRN Reason: Constipation Enoxaparin Sodium (Enoxaparin Sodium 40 Mg/0.4 Ml Syringe) 40 mg SUBCUT Q24H [facility] Last Admin: 11/30/21 22:08 Dose: Not Given Documented by: Ferrous Sulfate (Ferrous Sulfate 324 Mg Tablet.) 324 mg PO DAILY [facility] Last Admin: 12/01/21 08:08 Dose: 324 mg Documented by: Dextrose/Sodium Chloride (D5ns) 1,000 mls @ 125 mls/hr IVCONT .Q8H [facility] Last Admin: 12/01/21 16:03 Dose: 120 mls/hr Documented by: Multivitamins/Vitamin C (Multivitamin Tablet) 1 tab PO DAILY [facility] Last Admin: 12/01/21 08:08 Dose: 1 tab Documented by: Omeprazole (Omeprazole 20 Mg Capsule.Dr) 20 mg PO DAILY@0630 [facility] Last Admin: 12/01/21 06:12 Dose: 20 mg Documented by: Ondansetron HCl (Ondansetron Hcl 4 Mg/2 Ml Vial) 4 mg IVPUSH Q8H PRN PRN Reason: Nausea and Vomiting Oxycodone HCl (Oxycodone Hcl Immed Release 5 Mg Tablet) 5 mg PO Q6H PRN PRN Reason: Pain, Moderate (Pain Scale 4-6 Last Admin: 12/01/21 15:57 Dose: 5 mg Documented by: Pharmacy Consult (Consult Rx Perform Med Rec) 1 each MISCELLANE ONCE PRN PRN Reason: Consult order Sodium Chloride (0.9 % Sodium Chloride Flush 3 Ml Syringe) 3 ml IVFLUSH QSHIFT [facility] Last Admin: 12/01/21 15:38 Dose: Not Given Documented by: Vitamin D (Cholecalciferol (Vitamin D3) 25 Mcg Tablet) 25 mcg PO DAILY [facility] Last Admin: 12/01/21 08:08 Dose: 25 mcg Documented by: Time Spent With Patient Time: Total time spent is greater than 50% in coordination of care (as documented) at patient's floor/unit and/or counseling patient: Time with patient: 25 - 35 minutes Quality Stroke Does the patient have a stroke diagnosis?: No VTE Prior VTE?: No VTE Risk Level:: Medical - moderate - high VTE Device Contraindication: Treatment Not Indicated VTE Drug Contraindication: N/A - Med Ordered
[2021-12-01 20:00] VITALS: BP 141/67; PULSE 61; RESP 14; TEMP 36.3; O2SAT 100
[2021-12-02] VITALS (8 sets, daily range): BP systolic 112–153; BP diastolic 57–80; PULSE 50–70; RESP 16–18; TEMP 36–36.9; O2SAT 97–100
[2021-12-02 06:07] LABS: MANUAL DIFF FLAG NO
[2021-12-02] MEDS: Omeprazole 20 MG CAPSULE.DR PO (06:10)
[2021-12-02 06:11] LABS: Basophils Percent Auto 0.3 % (0-2); Eosinophils Percent Auto 1.1 % (0-4); Hemoglobin 8.1 g/dl (12.0-16.0); Imm Gran Abs Auto 0.02 X10*3/uL (0.00-0.03); Imm Gran Pct Auto 0.5 % (0.0-0.4); Lymphocytes Absolute Auto 0.6 X10*3/uL (1.2-4.9); Lymphocytes Percent Auto 15.8 % (20-40); Mean Corpuscular HGB Conc 31.2 g/dl (31.0-35.0); Mean Corpuscular Hemoglobin 28.8 pg (27.0-33.0); Mean Corpuscular Volume 92.5 fL (80.0-98.0); Mean Platelet Volume 9.2 fL (9.4-12.3); Monocytes Absolute Auto 0.3 X10*3/uL (0.1-1.2); Monocytes Percent Auto 8.8 % (2-11); Neutrophils Absolute Auto 2.8 x10*3/uL (2.0-8.3); Neutrophils Percent Auto 73.5 % (45-73); Platelet Count 258 X10*3/uL (160-400); Red Blood Count 2.81 X10*6/uL (4.20-5.50); Red Cell Distribution Width 22.1 % (11.0-16.0); White Blood Count 3.7 X10*3/uL (4.8-10.8)
[2021-12-02] MEDS: oxyCODONE HCl Immed Release 5 MG TABLET PO ×3 (06:29→20:10)
[2021-12-02] MEDS: Dextrose 5 % and 0.9 % NaCl 1,000 ML 125 ML IVCONT (06:32)
[2021-12-02 06:35] LABS: Alanine Aminotransferase 41 U/L (0-31); Albumin Level 1.8 g/dL (3.5-5.0); Alkaline Phosphatase 178 U/L (39-117); Anion Gap 7 (12-20); Aspartate Amino Transferase 28 U/L (5-31); Bilirubin Total 1.3 mg/dL (0.0-1.0); Blood Urea Nitrogen 8 mg/dL (9-16); Calcium 7.2 mg/dL (8.4-10.2); Carbon Dioxide 28 mmol/L (22-29); Chloride 107 mmol/L (96-108); Creatinine Clr Calc Pharmacy 74.2; Estimated Glomerular Filt Rate > 60; Glucose Fasting 44 mg/dL (60-99); Potassium 3.8 mmol/L (3.3-5.1); Sodium 138 mmol/L (135-145); Total Protein 3.5 g/dL (6.5-8.0)
[2021-12-02 07:27] LABS: Lactate Dehydrogenase 351 U/L (122-220)
[2021-12-02 07:36] LABS: Glucose, Whole Blood 159 mg/dL (60-115)
--- NOTE | 2021-12-02 07:39 | PC.NURSE ---
this am glucose only 43 pt asymptomatic because she refused snack she was given dextrose iv 50 ml 25 gm and blood sugar rechecked was [address] Valentin was notified
[2021-12-02] MEDS: Cyanocobalamin (Vitamin B-12) 500 MCG TABLET PO (09:05)
[2021-12-02] MEDS: Multivitamin TABLET 1 TAB PO (09:05)
[2021-12-02] MEDS: Cholecalciferol (Vitamin D3) 25 MCG TABLET PO (09:05)
[2021-12-02] MEDS: Aspirin 325 MG TABLET PO ×2 (09:05→20:02)
[2021-12-02] MEDS: Acetaminophen 325 MG TABLET 650 MG PO ×2 (09:06→15:11)
[2021-12-02] MEDS: Sodium,Potassium Phosphates POWD.PACK 1 PACKET PO ×4 (09:06→20:02)
--- NOTE | 2021-12-02 10:47 | PM.HEMONCPN ---
Medical Summary - Medical Summary Date of Service: 12/02/21 Chief complaint: Leg swelling Interval History Interval history: Patient is feeling better. She reports that her legs are still quite swollen and she cannot go home. She wants to meet with guest relations receptionist every day in the hospital. She agrees that just a bowl of mashed potatoes at bedtime is not enough for her. [facility] Medical History: Medical History (Last Reviewed 12/01/21 @ 07:57 by GATITO Menard) Anemia Closed intertrochanteric fracture of femur Family History: Family History (Last Updated 11/30/21 @ 06:29 by Kahlil Dela Cruz MD) Other No family history of coronary artery disease Surgical History: Surgical History (Last Reviewed 12/01/21 @ 07:57 by GATITO Menard) H/O foot surgery History of hip surgery Social History: Social History (Last Reviewed 11/30/21 @ 06:28 by Kahlil Dela Cruz MD) Living Situation History: Household Members: Family Household Members Other:: mother Housing: House Do you presently have visiting nurse or other home services: No Alcohol History Details: 1. How often do you have a drink containing alcohol?: a. Never AUDIT-C Alcohol total score: 0 Currently Displaying Signs/Symptoms of Alcohol Withdrawal: No Tobacco History: Patient Tobacco Use Status: Former Tobacco user Tobacco use type: Cigarette Smoked in Last 30 Days: No Substance Use History: Use of substances other than those prescribed or required for medical reasons: No Currently Displaying Signs/Symptoms of Drug Intoxication Withdrawal: No Any prior treatment program specific to substance use: No Domestic Abuse History: Have you been hit, kicked, punched, or otherwise hurt by someone within the past year? If so, by whom?: No Do you feel safe in your current relationship?: No Current Relationship Is there a partner from a previous relationship who is making you feel unsafe now?: No Are you made to feel afraid or neglected: No Advance Directives: Advance Directives: Yes Advance Directives on File: Yes Advance Directives Date on File: 11/16/21 Nutrition Assessment: Patient : No Occupation Assessmet: service: Yes Current occupational status: unemployed Home Medications and Allergies Current Medications: Current Medications Acetaminophen (Acetaminophen 325 Mg Tablet) 650 mg PO Q6H PRN PRN Reason: Pain, Mild (Pain Scale 1-3) Last Admin: 12/02/21 09:06 Dose: 650 mg Documented by: Aspirin (Aspirin 325 Mg Tablet) 325 mg PO BID [facility] Last Admin: 12/02/21 09:05 Dose: 325 mg Documented by: Cyanocobalamin (Cyanocobalamin (Vitamin B-12) 500 Mcg Tablet) 500 mcg PO DAILY [facility] Last Admin: 12/02/21 09:05 Dose: 500 mcg Documented by: Docusate Sodium (Docusate Sodium 100 Mg Capsule) 100 mg PO DAILY PRN PRN Reason: Constipation Enoxaparin Sodium (Enoxaparin Sodium 40 Mg/0.4 Ml Syringe) 40 mg SUBCUT Q24H [facility] Last Admin: 12/01/21 22:47 Dose: Not Given Documented by: Ferrous Sulfate (Ferrous Sulfate 324 Mg Tablet.) 324 mg PO DAILY [facility] Last Admin: 12/02/21 09:05 Dose: Not Given Documented by: Dextrose/Sodium Chloride (D5ns) 1,000 mls @ 125 mls/hr IVCONT .Q8H [facility] Last Admin: 12/02/21 06:32 Dose: 125 mls/hr Documented by: Multivitamins/Vitamin C (Multivitamin Tablet) 1 tab PO DAILY [facility] Last Admin: 12/02/21 09:05 Dose: 1 tab Documented by: Omeprazole (Omeprazole 20 Mg Capsule.) 20 mg PO DAILY@0630 [facility] Last Admin: 12/02/21 06:10 Dose: 20 mg Documented by: Ondansetron HCl (Ondansetron Hcl 4 Mg/2 Ml Vial) 4 mg IVPUSH Q8H PRN PRN Reason: Nausea and Vomiting Oxycodone HCl (Oxycodone Hcl Immed Release 5 Mg Tablet) 5 mg PO Q6H PRN PRN Reason: Pain, Moderate (Pain Scale 4-6 Last Admin: 12/02/21 06:29 Dose: 5 mg Documented by: Pharmacy Consult (Consult Rx Perform Med Rec) 1 each MISCELLANE ONCE PRN PRN Reason: Consult order Potassium Phos/Sodium Phos (Sodium,Potassium Phosphates Powd.Pack) 1 packet PO QID [facility] Last Admin: 12/02/21 09:06 Dose: 1 packet Documented by: Sodium Chloride (0.9 % Sodium Chloride Flush 3 Ml Syringe) 3 ml IVFLUSH QSHIFT [facility] Last Admin: 12/02/21 08:21 Dose: Not Given Documented by: Vitamin D (Cholecalciferol (Vitamin D3) 25 Mcg Tablet) 25 mcg PO DAILY [facility] Last Admin: 12/02/21 09:05 Dose: 25 mcg Documented by: Home Medications Medication Instructions Recorded Confirmed Type cholecalciferol (vitamin D3) 25 25 mcg PO DAILY 11/15/21 11/29/21 History mcg (1,000 unit) capsule (Vitamin D3) cyanocobalamin (vitamin B-12) 500 500 mcg PO DAILY 11/15/21 11/29/21 History mcg tablet [id number] 8 mg-folic 1 tab PO DAILY 11/15/21 11/29/21 History ac 400 mcg-vit K 10 mcg chew tablet (Centrum Chewables) Allergies Allergy/AdvReac Type Severity Reaction Status Date / Time No Known Allergies Allergy Unverified 11/29/21 11:24 [No Known Allergies*] Exam Vital signs: Vital Signs Temp 97.7 F 12/02/21 07:29 Pulse 50 12/02/21 10:18 Resp 18 12/02/21 07:29 BP 112/57 L 12/02/21 10:18 Pulse Ox 99 12/02/21 10:18 Intake & Output 12/01/21 12/02/21 12/02/21 18:59 06:59 18:59 Intake Total 1250 / 3088 1838 / 3088 Balance 1250 / 3088 1838 / 3088 Intake: Intake, Oral Amount 130 / 130 Intake, IV Amount 1250 / 2958 1708 / 2958 Potassium Phosphate/NS 15 mmol 250 / 250 In 250 ml @ 62.5 mls/hr IV ONCE ONE Rx#:[id number] Dextrose 5 % and 0.9 % NaCl 1, 1000 / 2708 1708 / 2708 000 ml @ 125 mls/hr IVCONT .Q8H [facility] Rx#:[id number] Other: Breakfast % Eaten 50% Dinner % Eaten 0% Number of Unmeasured Voids 1 Urine Bedside Commode Bathroom Weight 38.555 kg BMI result Body Mass Index 19.1 - Constitutional Present: mild distress, cachectic, chronically ill appearing - Routine HEENT Exam Head: Present: atraumatic - Routine Respiratory Exam Present: CTAB. Absent: accessory muscle use, respiratory distress - Routine Cardiovascular Exam Cardiovascular: Present: S1, S2 - Routine Abdominal Exam Present: soft - Routine Extremities Exam Present: pedal edema - Routine Skin Exam Present: erythema - Routine Neurological Exam Present: alert, oriented X3 Data - Labs CBC & Chem 7: 12/02/21 05:48 12/02/21 05:48 Labs: 11/29/21 12:37 EKG Documentation DIRECTED XR chest 1V Stat 11/29/21 12:38 ECG 12 lead EKG Stat 11/29/21 12:46 Basic Metabolic Panel Stat COVID-19 ID NOW (Han) Stat Complete Blood Count no Diff Stat Haptoglobin Routine IRON PROFILE Stat Lactate Dehydrogenase Stat Liver Panel Stat Reticulocyte Count Stat Troponin-I High Sensitivity Stat 11/29/21 13:23 CT abdomen pelvis w con Stat CT chest w con Stat 11/29/21 13:24 CT head/brain wo con Stat Acetaminophen [Tylenol] 650 mg PO ONCE ONE 11/29/21 13:42 Potassium Chloride Packet [Klor-Con Packet] 40 meq PO ONCE ONE ondansetron HCL [Zofran] 4 mg IVPUSH ONCE ONE 11/29/21 13:45 Lactated Ringers [Lr] 1,000 ml IV 999 mls/hr 11/29/21 13:53 Add Laboratory Test Stat 11/29/21 15:36 [id number] Stat 11/29/21 15:54 Direct Krystal (NARINDER) Stat RBC [Red Blood Cells] Stat Type and Screen Stat 11/29/21 16:31 iohexoL 350 MG/ML [Omnipaque 350 MG/ML] 100 ml IV ONCE ONE 11/29/21 17:35 Add Laboratory Test Stat Add Laboratory Test Stat 11/29/21 18:19 Troponin-I High Sensitivity Stat 11/29/21 21:50 CBC W/AUTO DIFF [Complete Blood Count Auto Diff] Stat Ferritin Stat Vitamin B12 and Folate Stat 11/30/21 07:08 Basic Metabolic Panel DAILY@0600 Complete Blood Count no Diff DAILY@0600 Erythrocyte Sedimentation Rate Routine PT with INR [Prothrombin Time INR] Stat Phosphorus Stat Rheumatoid Factor Stat 11/30/21 15:30 oxyCODONE HCl Immed Release [Roxicodone] 10 mg PO ONCE ONE 11/30/21 15:32 Add Laboratory Test Stat 11/30/21 15:34 Add Laboratory Test Stat 11/30/21 17:30 Potassium Phosphate/NS [KPhos] 15 mmol in 250 ml IV ONCE 12/01/21 08:50 Phosphorus Urgent 12/01/21 10:24 Potassium Phosphate/NS [KPhos] 15 mmol in 250 ml IV ONCE 12/02/21 05:48 CBC W/AUTO DIFF [Complete Blood Count Auto Diff] DAILY@0600 CMP [Comprehensive [place]. Panel Fast] DAILY@0600 Lactate Dehydrogenase Routine Phosphorus DAILY@0600 12/02/21 06:46 Dextrose 50 % [D50] 25 gm IVPUSH .STK-MED ONE 12/02/21 07:11 Add Laboratory Test Stat 12/02/21 07:28 Glucose, Whole Blood Routine Laboratory Last Values WBC 3.7 X10*3/uL (4.8-10.8) L 12/02/21 05:48 RBC 2.81 X10*6/uL (4.20-5.50) L 12/02/21 05:48 Hgb 8.1 g/dl (12.0-16.0) L 12/02/21 05:48 Hct 26.0 % (37.0-47.0) L 12/02/21 05:48 MCV 92.5 fL (80.0-98.0) 12/02/21 05:48 MCH 28.8 pg (27.0-33.0) 12/02/21 05:48 MCHC 31.2 g/dl (31.0-35.0) 12/02/21 05:48 RDW 22.1 % (11.0-16.0) H 12/02/21 05:48 Plt Count 258 X10*3/uL (160-400) 12/02/21 05:48 MPV 9.2 fL (9.4-12.3) L 12/02/21 05:48 Immature Gran % (Auto) 0.5 % (0.0-0.4) H 12/02/21 05:48 Neut % (Auto) 73.5 % (45-73) H 12/02/21 05:48 Lymph % (Auto) 15.8 % (20-40) L 12/02/21 05:48 [place] % (Auto) 8.8 % (2-11) 12/02/21 05:48 Eos % (Auto) 1.1 % (0-4) 12/02/21 05:48 Baso % (Auto) 0.3 % (0-2) 12/02/21 05:48 Lymph # (Auto) 0.6 X10*3/uL (1.2-4.9) L 12/02/21 05:48 [place] # (Auto) 0.3 X10*3/uL (0.1-1.2) 12/02/21 05:48 Eos # (Auto) 0.0 X10*3/uL (0.0-0.4) 12/02/21 05:48 Baso # (Auto) 0.0 X10*3/uL (0.0-0.2) 12/02/21 05:48 Abs Immat Gran (auto) 0.02 X10*3/uL (0.00-0.03) 12/02/21 05:48 Absolute Neuts (auto) 2.8 x10*3/uL (2.0-8.3) 12/02/21 05:48 Absolute Nucleated RBC 0.000 X10*3/uL (0.0-0.012) 12/02/21 05:48 Nucleated RBC % (auto) 0.0 /100WBC (0.0-0.2) 12/02/21 05:48 ESR 5 MM/HR (0-20) 11/30/21 07:08 Absolute Retic 0.031 X10*6/uL (0.026-0.095) 11/29/21 12:46 Percent Retic 1.1 % (0.5-1.8) 11/29/21 12:46 Immature Retic Fraction 25.1 % (3.0-15.9) H 11/29/21 12:46 Retic Hgb Equivalent 30.8 pg (30.0-35.0) 11/29/21 12:46 Haptoglobin 43 mg/dL (43-212) 11/29/21 12:46 PT 10.6 SEC (9.9-13.0) 11/30/21 07:08 INR 0.9 (0.9-1.1) 11/30/21 07:08 Sodium 138 mmol/L (135-145) 12/02/21 05:48 Potassium 3.8 mmol/L (3.3-5.1) 12/02/21 05:48 Chloride 107 mmol/L (96-108) 12/02/21 05:48 Carbon Dioxide 28 mmol/L (22-29) 12/02/21 05:48 Anion Gap 7 (12-20) L 12/02/21 05:48 BUN 8 mg/dL (9-16) L 12/02/21 05:48 Creatinine 0.45 mg/dL (0.5-1.4) L 12/02/21 05:48 Estim Creat Clear Calc 74.2 12/02/21 05:48 Estimated GFR > 60 12/02/21 05:48 POC Glucose 159 mg/dL (60-115) H 12/02/21 07:28 Random Glucose 60 mg/dL (60-115) 11/30/21 07:08 Fasting Glucose 44 mg/dL (60-99) L* 12/02/21 05:48 Calcium 7.2 mg/dL (8.4-10.2) L 12/02/21 05:48 Phosphorus 2.0 mg/dL (2.7-4.5) L 12/02/21 05:48 Iron 49 mcg/dL (30-160) 11/29/21 12:46 TIBC 217 mcg/dL (228-428) L 11/29/21 12:46 % Saturation 23 % (15-50) 11/29/21 12:46 Unsat Iron Binding 168 ug/dL 11/29/21 12:46 Ferritin 187 ng/mL (10-250) 11/29/21 21:50 Total Bilirubin 1.3 mg/dL (0.0-1.0) H 12/02/21 05:48 Direct Bilirubin 0.4 mg/dL (0.0-0.5) 11/29/21 12:46 AST 28 U/L (5-31) D 12/02/21 05:48 ALT 41 U/L (0-31) H 12/02/21 05:48 Alkaline Phosphatase 178 U/L (39-117) H 12/02/21 05:48 Lactate Dehydrogenase 351 U/L (122-220) H 12/02/21 05:48 Troponin I High Sens 12.6 ng/L (<3.5-17.0) 11/29/21 18:19 Total Protein 3.5 g/dL (6.5-8.0) L D 12/02/21 05:48 Total Protein (PEP) 4.2 g/dL (6.1-8.1) L 11/30/21 07:08 Albumin 1.8 g/dL (3.5-5.0) L D 12/02/21 05:48 Albumin (PEP) 2.1 g/dL (3.8-4.8) L 11/30/21 07:08 Tlyjx-5-Hhritrlhj 0.3 g/dL (0.2-0.3) 11/30/21 07:08 Rmhrk-6-Jfbhtsrax 0.6 g/dL (0.5-0.9) 11/30/21 07:08 Fwfg-1-Zhybbjrj 0.3 g/dL (0.4-0.6) L 11/30/21 07:08 Cmcq-6-Tsjmsejb 0.3 g/dL (0.2-0.5) 11/30/21 07:08 Gamma Globulins 0.6 g/dL (0.8-1.7) L 11/30/21 07:08 PEP Interpretation SEE NOTE 11/30/21 07:08 Vitamin B12 1464 pg/mL (200-900) H 11/29/21 21:50 Folate 15.1 ng/mL (> or = 4.0) 11/29/21 21:50 Stool Occult Blood NEGATIVE (NEGATIVE) 11/29/21 15:36 Rheumatoid Factor < 15.0 IU/mL (<15.0) 11/30/21 07:08 TERRI Screen NEGATIVE (NEGATIVE) 11/30/21 07:08 COVID-19 (LIBRADO) Negative (Negative) 11/29/21 12:46 COVID-19 Clin Com See Note 11/29/21 12:46 Blood Type O Positive 11/29/21 15:54 Antibody Screen NEGATIVE 11/29/21 15:54 NARINDER, Polyspecific NEGATIVE 11/29/21 15:54 Positive NARINDER Work-up TNP 11/29/21 15:54 Crossmatch See Detail 11/29/21 15:54 - Imaging Radiologist's impression: ITS Impressions Chest X-Ray 11/29/21 13:00 IMPRESSION: Hyperinflated lungs without acute process. Abdomen/Pelvis CT 11/29/21 16:41 IMPRESSION: 1. CT chest. No suspicious lung mass. No acute abnormality of chest. 2. CT scan abdomen and pelvis. No abdominal or pelvic mass. No acute abnormality. Chest CT 11/29/21 16:41 IMPRESSION: 1. CT chest. No suspicious lung mass. No acute abnormality of chest. 2. CT scan abdomen and pelvis. No abdominal or pelvic mass. No acute abnormality. Head CT 11/29/21 16:41 IMPRESSION: No evidence of acute intracranial hemorrhage or edematous territorial infarction. Assessment and Plan Patient Active problem list reviewed?: Yes (1) Normocytic anemia Status: Acute Assessment and plan: 1. This is a 61-year-old woman with moderately severe normocytic anemia diagnosed in October 2021. She is cachectic and severely malnourished. She has been taking oral iron and vitamin B12 supplementation. Hematological workup thus far is unremarkable. ESR, TERRI negative. LDH is coming down. Longstanding protein-calorie malnutrition is probable cause of her anemia. Other hematological tests, serum immunofixation and blood flow cytometry for PNH is pending. I discussed with the patient about improving her diet and increasing protein intake. She was advised to follow-up with hematology upon discharge. - Time Spent With Patient Time Spent with Patient (in minutes): 10
--- NOTE | 2021-12-02 10:55 | MHC.CLN ---
F/U VISITED WITH PATIENT X 2 THIS AM. MULTIPLE COMPLAINTS ABOUT FOOD WHILE IN ED INCLUDING TYPES OF FOOD PROVIDED AND TIMING OF FOOD. ASSURED PATIENT THAT SOMEONE WOULD TAKE HER INDIVIDUAL ORDER FOR EACH MEAL. DISCUSSED FOOD PREFERENCES AND EATING PATTERNS. DISLIKES SUPPLEMENTS. WILL EAT FISH, CHICKEN AND TURKEY-NOT FRIED. THIS LAND EXAMINER TOOK PATIENT'S MEAL ORDERS FOR LUNCH, DINNER, AND BREAKFAST, THEN MEET WITH [facility] TO ADVISE OF PREFERENCES. APPEARS TO HAVE DISORDERED EATING WITH RIGID FOOD CHOICES. ALSO STATED THAT HAS GAINED A LOT OF WEIGHT SINCE HIP FX AND WEIGHT HX DOES NOT SUPPORT THAT. CONTINUE TO PROVIDE FOOD PREFERENCES ABLE. MONITOR PO INTAKE AT MEALS.
--- NOTE | 2021-12-02 11:15 | MHC.CM.PN ---
EMR REVIEWED, PT CONT'S TO HAVE HAVE LOW PHOSPHATE AT 2.0 AND PLAN FOR REPLETION,PSYCH CONSULT FOR EATING D/O PENDING, DIETARY WORKING W/PT, PER PHYSICAL THERAPY PT DOING WELL AND WILL BE ABLE TO D/C HOME, PT DOES NOT QUALIFY FOR HOME SERVICES D/T NOT BEING SEEN AT [facility] X[facility] AND THEY WILL NOT APPROVE HOME SERVICES W/OUT PT SEEING ONE OF THEIR PROVIDERS, ANTIC POSSIBLE W/E D/C IF CLEARED BY PSYCH.
--- NOTE | 2021-12-02 11:34 | P.PNIM_ITS ---
Subjective Subjective Date of Service: 12/02/21 Interval History: no acute events overnight. Chronically ill-appearing; spoke with nutrition Review of Systems denies chest pain Denies shortness of breath Denies nausea and diarrhea admits to nervousness and anxiety Physical Exam Vital Signs: Vital Signs: Last Vital Signs Temp 97.7 F 12/02/21 07:29 Pulse 50 12/02/21 10:18 Resp 18 12/02/21 07:29 BP 112/57 L 12/02/21 10:18 Pulse Ox 99 12/02/21 10:18 BMI result Body Mass Index 19.1 Const: Other: awake alert anxious. cachectic; ill-appearing Resp: Other: clear to auscultation bilaterally no rales rhonchi or wheezes Cardio: Other: no S4; positive S1-S2; no S3 or murmurs rubs or gallops GI: Other: soft nontender nondistended normoactive bowel Neuro: Other: cranial nerves 2-12 grossly intact as tested; motor 5/5 all extremities sensation in Objective Data Active Medications Acetaminophen (Acetaminophen 325 Mg Tablet) 650 mg PO Q6H PRN PRN Reason: Pain, Mild (Pain Scale 1-3) Last Admin: 12/02/21 09:06 Dose: 650 mg Documented by: RODRIGUEZ Aspirin (Aspirin 325 Mg Tablet) 325 mg PO BID [facility] Last Admin: 12/02/21 09:05 Dose: 325 mg Documented by: RODRIGUEZ Cyanocobalamin (Cyanocobalamin (Vitamin B-12) 500 Mcg Tablet) 500 mcg PO DAILY [facility] Last Admin: 12/02/21 09:05 Dose: 500 mcg Documented by: RODRIGUEZ Docusate Sodium (Docusate Sodium 100 Mg Capsule) 100 mg PO DAILY PRN PRN Reason: Constipation Enoxaparin Sodium (Enoxaparin Sodium 40 Mg/0.4 Ml Syringe) 40 mg SUBCUT Q24H [facility] Last Admin: 12/01/21 22:47 Dose: Not Given Documented by: MANUEL Non-Admin Reason: Patient Refused Ferrous Sulfate (Ferrous Sulfate 324 Mg Tablet.) 324 mg PO DAILY [facility] Last Admin: 12/02/21 09:05 Dose: Not Given Documented by: RODRIGUEZ Non-Admin Reason: Patient Refused Dextrose/Sodium Chloride (D5ns) 1,000 mls @ 125 mls/hr IVCONT .Q8H [facility] Last Admin: 12/02/21 06:32 Dose: 125 mls/hr Documented by: MANUEL Multivitamins/Vitamin C (Multivitamin Tablet) 1 tab PO DAILY [facility] Last Admin: 12/02/21 09:05 Dose: 1 tab Documented by: RODRIGUEZ Omeprazole (Omeprazole 20 Mg Capsule.Dr) 20 mg PO DAILY@0630 [facility] Last Admin: 12/02/21 06:10 Dose: 20 mg Documented by: MANUEL Ondansetron HCl (Ondansetron Hcl 4 Mg/2 Ml Vial) 4 mg IVPUSH Q8H PRN PRN Reason: Nausea and Vomiting Oxycodone HCl (Oxycodone Hcl Immed Release 5 Mg Tablet) 5 mg PO Q6H PRN PRN Reason: Pain, Moderate (Pain Scale 4-6 Last Admin: 12/02/21 06:29 Dose: 5 mg Documented by: MANUEL Pharmacy Consult (Consult Rx Perform Med Rec) 1 each MISCELLANE ONCE PRN PRN Reason: Consult order Potassium Phos/Sodium Phos (Sodium,Potassium Phosphates Powd.Pack) 1 packet PO QID [facility] Last Admin: 12/02/21 09:06 Dose: 1 packet Documented by: RODRIGUEZ Sodium Chloride (0.9 % Sodium Chloride Flush 3 Ml Syringe) 3 ml IVFLUSH QSHIFT [facility] Last Admin: 12/02/21 08:21 Dose: Not Given Documented by: RODRIGUEZ Non-Admin Reason: IV Running Vitamin D (Cholecalciferol (Vitamin D3) 25 Mcg Tablet) 25 mcg PO DAILY [facility] Last Admin: 12/02/21 09:05 Dose: 25 mcg Documented by: RODRIGUEZ Labs CBC & Chem 7: 12/02/21 05:48 12/02/21 05:48 Labs: Laboratory Results - last 24 hr 11/30/21 11/30/21 12/02/21 07:08 07:08 05:48 MCV 92.5 MCH 28.8 MCHC 31.2 RDW 22.1 H Plt Count 258 MPV 9.2 L Immature Gran % (Auto) 0.5 H Neut % (Auto) 73.5 H Lymph % (Auto) 15.8 L Parker % (Auto) 8.8 Eos % (Auto) 1.1 Baso % (Auto) 0.3 Lymph # (Auto) 0.6 L Parker # (Auto) 0.3 Eos # (Auto) 0.0 Baso # (Auto) 0.0 Abs Immat Gran (auto) 0.02 Absolute Neuts (auto) 2.8 Absolute Nucleated RBC 0.000 Nucleated RBC % (auto) 0.0 Anion Gap Estim Creat Clear Calc Estimated GFR POC Glucose Fasting Glucose Calcium Phosphorus Total Bilirubin AST ALT Alkaline Phosphatase Lactate Dehydrogenase Total Protein Total Protein (PEP) 4.2 L Albumin Albumin (PEP) 2.1 L Nmmtq-9-Tdnrhofto 0.3 Qabdv-9-Mqmttxiqf 0.6 Bxaj-6-Iwuheimn 0.3 L Hvou-7-Eamfykyq 0.3 Gamma Globulins 0.6 L PEP Interpretation SEE NOTE TERRI Screen NEGATIVE 12/02/21 12/02/21 05:48 07:28 MCV MCH MCHC RDW Plt Count MPV Immature Gran % (Auto) Neut % (Auto) Lymph % (Auto) Parker % (Auto) Eos % (Auto) Baso % (Auto) Lymph # (Auto) Parker # (Auto) Eos # (Auto) Baso # (Auto) Abs Immat Gran (auto) Absolute Neuts (auto) Absolute Nucleated RBC Nucleated RBC % (auto) Anion Gap 7 L Estim Creat Clear Calc 74.2 Estimated GFR > 60 POC Glucose 159 H Fasting Glucose 44 L* Calcium 7.2 L Phosphorus 2.0 L Total Bilirubin 1.3 H AST 28 D ALT 41 H Alkaline Phosphatase 178 H Lactate Dehydrogenase 351 H Total Protein 3.5 L D Total Protein (PEP) Albumin 1.8 L D Albumin (PEP) Mwfwv-3-Bnzcfuetu Elvxx-1-Xcsxzffwv Lyex-5-Tlwgjzzl Uvhq-4-Xaatgniy Gamma Globulins PEP Interpretation TERRI Screen Assessment and Plan (1) Normocytic anemia: Status: Acute (2) Malnutrition: Status: Acute (3) Closed intertrochanteric fracture of femur: Status: Acute Plan 61-year-old female with past medical history of recent hip fracture status post IM nail as well as normocytic anemia presents to the hospital with complaints of generalized weakness found to have anemia and failure to thrive 1.Normocytic anemia - work up thus darin unremarkable; her hematology note anemia secondary to chronic malnutrition he - follow H&H 2.Failure to thrive - appears to be secondary to deconditioning as well as malnutrition - PT OT - case management consult; await psych input 3.Closed inter current Chris fracture femur status post IM nail - as per Ortho 4.Moderate protein malnutrition cachexia/generalized weakness - skiff operator consult; replete Phos - psych consult...query eating disorder DVT prophylaxis Lovenox Quality Stroke Does the patient have a stroke diagnosis?: No VTE Prior VTE?: No VTE Risk Level:: Medical - moderate - high VTE Device Contraindication: Treatment Not Indicated VTE Drug Contraindication: N/A - Med Ordered
[2021-12-02 11:58] LABS: Glucose, Whole Blood 81 mg/dL (60-115)
[2021-12-02 12:11] LABS: IgA 277 mg/dL (70-320); IgG 552 mg/dL (600-1540); IgM 170 mg/dL (50-300)
[2021-12-02 15:59] LABS: Glucose, Whole Blood 120 mg/dL (60-115)
[2021-12-02 19:55] LABS: Glucose, Whole Blood 111 mg/dL (60-115)
[2021-12-02] MEDS: 0.9 % Sodium Chloride Flush 3 ML SYRINGE IVFLUSH (20:02)
[2021-12-03 03:31] VITALS: BP 138/63; PULSE 63; RESP 18; TEMP 36.9; O2SAT 99
[2021-12-03] MEDS: oxyCODONE HCl Immed Release 5 MG TABLET PO ×5 (05:36→23:44)
[2021-12-03] MEDS: Omeprazole 20 MG CAPSULE.DR PO (05:37)
[2021-12-03 06:19] LABS: MANUAL DIFF FLAG NO
[2021-12-03 06:26] LABS: Basophils Percent Auto 0.2 % (0-2); Eosinophils Percent Auto 0.3 % (0-4); Hematocrit 28.9 % (37.0-47.0); Imm Gran Abs Auto 0.07 X10*3/uL (0.00-0.03); Imm Gran Pct Auto 0.7 % (0.0-0.4); Lymphocytes Absolute Auto 0.4 X10*3/uL (1.2-4.9); Lymphocytes Percent Auto 3.7 % (20-40); Mean Corpuscular HGB Conc 31.1 g/dl (31.0-35.0); Mean Corpuscular Hemoglobin 28.7 pg (27.0-33.0); Mean Platelet Volume 9.2 fL (9.4-12.3); Monocytes Absolute Auto 0.5 X10*3/uL (0.1-1.2); Monocytes Percent Auto 5.1 % (2-11); Neutrophils Absolute Auto 9.1 x10*3/uL (2.0-8.3); Platelet Count 260 X10*3/uL (160-400); Red Blood Count 3.14 X10*6/uL (4.20-5.50); Red Cell Distribution Width 22.5 % (11.0-16.0); White Blood Count 10.1 X10*3/uL (4.8-10.8)
[2021-12-03 07:06] VITALS: BP 129/62; PULSE 64; RESP 18; TEMP 36.9; O2SAT 99
[2021-12-03 07:26] LABS: Alanine Aminotransferase 39 U/L (0-31); Alkaline Phosphatase 197 U/L (39-117); Anion Gap 9 (12-20); Aspartate Amino Transferase 27 U/L (5-31); Bilirubin Total 1.4 mg/dL (0.0-1.0); Blood Urea Nitrogen 10 mg/dL (9-16); Calcium 7.4 mg/dL (8.4-10.2); Carbon Dioxide 28 mmol/L (22-29); Chloride 104 mmol/L (96-108); Creatinine Clr Calc Pharmacy 72.6; Estimated Glomerular Filt Rate > 60; Glucose Fasting 59 mg/dL (60-99); Phosphorus 2.2 mg/dL (2.7-4.5); Potassium 4.1 mmol/L (3.3-5.1); Sodium 137 mmol/L (135-145)
[2021-12-03 07:38] LABS: Glucose, Whole Blood 64 mg/dL (60-115)
[2021-12-03] MEDS: Multivitamin TABLET 1 TAB PO (09:22)
[2021-12-03] MEDS: Cholecalciferol (Vitamin D3) 25 MCG TABLET PO (09:22)
[2021-12-03] MEDS: Cyanocobalamin (Vitamin B-12) 500 MCG TABLET PO (09:22)
[2021-12-03] MEDS: Ferrous Sulfate 324 MG TABLET.DR PO (09:22)
[2021-12-03] MEDS: Aspirin 325 MG TABLET PO ×2 (09:22→20:26)
[2021-12-03] MEDS: Sodium,Potassium Phosphates POWD.PACK 1 PACKET PO ×4 (09:23→20:26)
[2021-12-03] MEDS: 0.9 % Sodium Chloride Flush 3 ML SYRINGE IVFLUSH ×3 (09:30→20:27)
[2021-12-03 11:25] VITALS: BP 118/56; PULSE 76; RESP 18; TEMP 36.9; O2SAT 100
--- NOTE | 2021-12-03 11:37 | HO.PM.IMPN ---
Subjective Subjective Date of Service: 12/03/21 Interval History: no acute events overnight. Chronically ill-appearing; spoke with nutrition Review of Systems denies chest pain Denies shortness of breath Denies nausea and diarrhea admits to nervousness and anxiety Physical Exam Vital Signs: Vital Signs: Last Vital Signs Temp 98.4 F 12/03/21 11:25 Pulse 76 12/03/21 11:25 Resp 18 12/03/21 11:25 BP 118/56 L 12/03/21 11:25 Pulse Ox 100 12/03/21 11:25 BMI result Body Mass Index 19.1 Const: Other: awake alert anxious. cachectic; ill-appearing Resp: Other: clear to auscultation bilaterally no rales rhonchi or wheezes Cardio: Other: no S4; positive S1-S2; no S3 or murmurs rubs or gallops GI: Other: soft nontender nondistended normoactive bowel Neuro: Other: cranial nerves 2-12 grossly intact as tested; motor 5/5 all extremities sensation in Objective Data Active Medications Acetaminophen (Acetaminophen 325 Mg Tablet) 650 mg PO Q6H PRN PRN Reason: Pain, Mild (Pain Scale 1-3) Last Admin: 12/02/21 15:11 Dose: 650 mg Documented by: RODRIGUEZ Aspirin (Aspirin 325 Mg Tablet) 325 mg PO BID [facility] Last Admin: 12/03/21 09:22 Dose: 325 mg Documented by: PER Cyanocobalamin (Cyanocobalamin (Vitamin B-12) 500 Mcg Tablet) 500 mcg PO DAILY [facility] Last Admin: 12/03/21 09:22 Dose: 500 mcg Documented by: PER Docusate Sodium (Docusate Sodium 100 Mg Capsule) 100 mg PO DAILY PRN PRN Reason: Constipation Enoxaparin Sodium (Enoxaparin Sodium 40 Mg/0.4 Ml Syringe) 40 mg SUBCUT Q24H [facility] Last Admin: 12/02/21 20:10 Dose: Not Given Documented by: BOBBY Non-Admin Reason: Patient Refused Ferrous Sulfate (Ferrous Sulfate 324 Mg Tablet.) 324 mg PO DAILY [facility] Last Admin: 12/03/21 09:22 Dose: 324 mg Documented by: PER Dextrose/Sodium Chloride (D5ns) 1,000 mls @ 125 mls/hr IVCONT .Q8H [facility] Last Admin: 12/03/21 09:26 Dose: Not Given Documented by: PER Non-Admin Reason: Patient Refused Multivitamins/Vitamin C (Multivitamin Tablet) 1 tab PO DAILY [facility] Last Admin: 12/03/21 09:22 Dose: 1 tab Documented by: PER Omeprazole (Omeprazole 20 Mg Capsule.Dr) 20 mg PO DAILY@0630 [facility] Last Admin: 12/03/21 05:37 Dose: 20 mg Documented by: BOBBY Ondansetron HCl (Ondansetron Hcl 4 Mg/2 Ml Vial) 4 mg IVPUSH Q8H PRN PRN Reason: Nausea and Vomiting Oxycodone HCl (Oxycodone Hcl Immed Release 5 Mg Tablet) 5 mg PO Q6H PRN PRN Reason: Pain, Moderate (Pain Scale 4-6 Last Admin: 12/03/21 05:36 Dose: 5 mg Documented by: BOBBY Pharmacy Consult (Consult Rx Perform Med Rec) 1 each MISCELLANE ONCE PRN PRN Reason: Consult order Potassium Phos/Sodium Phos (Sodium,Potassium Phosphates Powd.Pack) 1 packet PO QID [facility] Last Admin: 12/03/21 09:23 Dose: 1 packet Documented by: PER Sodium Chloride (0.9 % Sodium Chloride Flush 3 Ml Syringe) 3 ml IVFLUSH QSHIFT [facility] Last Admin: 12/03/21 09:30 Dose: 3 ml Documented by: PER Vitamin D (Cholecalciferol (Vitamin D3) 25 Mcg Tablet) 25 mcg PO DAILY [facility] Last Admin: 12/03/21 09:22 Dose: 25 mcg Documented by: PER Labs CBC & Chem 7: 12/03/21 06:01 12/03/21 06:01 Labs: Laboratory Results - last 24 hr 11/30/21 11/30/21 11/30/21 07:08 07:08 12:49 MCV MCH MCHC RDW Plt Count MPV Immature Gran % (Auto) Neut % (Auto) Lymph % (Auto) [place] % (Auto) Eos % (Auto) Baso % (Auto) Lymph # (Auto) [place] # (Auto) Eos # (Auto) Baso # (Auto) Abs Immat Gran (auto) Absolute Neuts (auto) Absolute Nucleated RBC Nucleated RBC % (auto) Anion Gap Estim Creat Clear Calc Estimated GFR POC Glucose Fasting Glucose Calcium Phosphorus Total Bilirubin AST ALT Alkaline Phosphatase Total Protein Albumin IgG Total 552 L IgA Total 277 IgM 170 TRINA Interpretation SEE NOTE TERRI Titer TNP TERRI Titer 2 TNP TERRI Titer 3 TNP TERRI Pattern TNP TERRI Pattern 2 TNP TERRI Pattern 3 TNP Ref Lab Test Result SEE COMMENT 12/02/21 12/02/21 12/02/21 11:51 15:12 19:27 MCV MCH MCHC RDW Plt Count MPV Immature Gran % (Auto) Neut % (Auto) Lymph % (Auto) [place] % (Auto) Eos % (Auto) Baso % (Auto) Lymph # (Auto) [place] # (Auto) Eos # (Auto) Baso # (Auto) Abs Immat Gran (auto) Absolute Neuts (auto) Absolute Nucleated RBC Nucleated RBC % (auto) Anion Gap Estim Creat Clear Calc Estimated GFR POC Glucose 81 120 H 111 Fasting Glucose Calcium Phosphorus Total Bilirubin AST ALT Alkaline Phosphatase Total Protein Albumin IgG Total IgA Total IgM TRINA Interpretation TERRI Titer TERRI Titer 2 TERRI Titer 3 TERRI Pattern TERRI Pattern 2 TERRI Pattern 3 Ref Lab Test Result 12/03/21 12/03/21 12/03/21 06:01 06:01 07:09 MCV 92.0 MCH 28.7 MCHC 31.1 RDW 22.5 H Plt Count 260 MPV 9.2 L Immature Gran % (Auto) 0.7 H Neut % (Auto) 90.0 H Lymph % (Auto) 3.7 L [place] % (Auto) 5.1 Eos % (Auto) 0.3 Baso % (Auto) 0.2 Lymph # (Auto) 0.4 L [place] # (Auto) 0.5 Eos # (Auto) 0.0 Baso # (Auto) 0.0 Abs Immat Gran (auto) 0.07 H Absolute Neuts (auto) 9.1 H Absolute Nucleated RBC 0.000 Nucleated RBC % (auto) 0.0 Anion Gap 9 L Estim Creat Clear Calc 72.6 Estimated GFR > 60 POC Glucose 64 Fasting Glucose 59 L* Calcium 7.4 L Phosphorus 2.2 L Total Bilirubin 1.4 H AST 27 ALT 39 H Alkaline Phosphatase 197 H Total Protein 4.0 L Albumin 2.0 L IgG Total IgA Total IgM TRINA Interpretation TERRI Titer TERRI Titer 2 TERRI Titer 3 TERRI Pattern TERRI Pattern 2 TERRI Pattern 3 Ref Lab Test Result Assessment and Plan (1) Normocytic anemia: Status: Acute (2) Failure to thrive in adult: Status: Acute (3) Closed intertrochanteric fracture of femur: Status: Acute Plan 61-year-old female with past medical history of recent hip fracture status post IM nail as well as normocytic anemia presents to the hospital with complaints of generalized weakness found to have anemia and failure to thrive 1.Normocytic anemia - work up thus darin unremarkable; her hematology note anemia secondary to chronic malnutrition he - follow H&H 2.Failure to thrive - appears to be secondary to deconditioning as well as malnutrition - PT OT - await psych input -agrees to Evita or STR; case Management aware 3.Closed inter current Chris fracture femur status post IM nail - as per Ortho 4.Moderate protein malnutrition cachexia/generalized weakness - health technician consult; replete Phos - psych consult...query eating disorder DVT prophylaxis Lovenox Quality Stroke Does the patient have a stroke diagnosis?: No VTE Prior VTE?: No VTE Risk Level:: Medical - moderate - high VTE Device Contraindication: Treatment Not Indicated VTE Drug Contraindication: N/A - Med Ordered
[2021-12-03 11:42] LABS: Glucose, Whole Blood 113 mg/dL (60-115)
[2021-12-03] MEDS: Acetaminophen 325 MG TABLET 650 MG PO ×2 (14:53→23:44)
[2021-12-03 15:49] VITALS: BP 114/59; PULSE 80; RESP 18; TEMP 37; O2SAT 98
[2021-12-03 16:10] LABS: Glucose, Whole Blood 128 mg/dL (60-115)
[2021-12-03 19:23] VITALS: BP 127/59; PULSE 84; RESP 18; TEMP 38.1; O2SAT 95
[2021-12-03 19:43] LABS: Glucose, Whole Blood 138 mg/dL (60-115)
[2021-12-03] MEDS: traZODone HCL 25 MG HALFTAB PO (20:26)
[2021-12-03] MEDS: Mirtazapine 15 MG TABLET PO (20:26)
--- NOTE | 2021-12-03 20:28 | PM.PSYCN ---
History of Present Illness Date of Service: 12/03/21 Chief Complaint: Anemia, Generalize Weakness anxiety Reason for Consult: Question of eating disorder interfering with treatment Requesting physician: Nathan Day Discussed with referring provider: Yes Sources of Information: patient interviewed and chart reviewed Additional Sources of Information: Patient's mother was present case reviewed extensively with hospitalist AME Narrative: The patient is a 61-year-old single female admitted to the hospital with anemia fatigue edema and was noted to have a inter trochanteric fracture of the left hip which was repaired. The patient has been having a difficult recovery having hard time dealing with the anxiety of needing to deal with being in the hospital the amount of calories she needs to take in. The patient is chronically obsessional ritualistic things need to be done in a certain way runs 8 miles a day and that is how she deals with her stress and anxiety. Not being able to do this has been quite difficult for her. She complains of insomnia and has had worry and preoccupation particularly since she was let go from her job last year. Patient denies chronic body image distortion but has been told for many years that she has some form of an eating disorder which she absolutely denies. She denies body image distortion she does appear to restrict calories and her weight had most recently gone down into the 80s she denies prior psychiatric treatment has difficulty T hearing that her restricted eating and running have contributed to protein malnutrition and will interfere with her healing Past Psychiatric History: Patient denies but has chronic obsessional thinking preoccupation things need to be ordered in a certain way Medical Evaluation Reviewed: Yes [facility] Medical History (Updated 12/20/21 @ 10:57 by Warren Hunter MD) Anemia Avoidant and restrictive food intake disorder Closed intertrochanteric fracture of femur Generalized anxiety disorder MSSA bacteremia OCD (obsessive compulsive disorder) Sacral pressure ulcer Surgical History H/O foot surgery History of hip surgery Family History: anxiety Social History: 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 past hx binging alc in [place] y[place] Trauma History: denies Diagnostics Vital Signs (24Hr): Vital Signs - 24 hr 12/02/21 23:45 12/03/21 03:31 12/03/21 07:06 Temperature 98.3 F 98.4 F 98.4 F Pulse Rate 66 63 64 Respiratory Rate 18 18 18 Blood Pressure 153/80 H 138/63 129/62 Pulse Oximetry 99 99 99 12/03/21 11:25 12/03/21 15:49 12/03/21 19:23 Temperature 98.4 F 98.6 F 100.6 F H Pulse Rate 76 80 84 Respiratory Rate 18 18 18 Blood Pressure 118/56 L 114/59 L 127/59 L Pulse Oximetry 100 98 95 BMI result Body Mass Index 19.1 Labs Results: 12/19/21 05:25 12/18/21 06:15 Labs: Laboratory Results - last 48 hr 11/30/21 11/30/21 11/30/21 07:08 07:08 12:49 WBC RBC Hgb Hct MCV MCH MCHC RDW Plt Count MPV Immature Gran % (Auto) Neut % (Auto) Lymph % (Auto) [place] % (Auto) Eos % (Auto) Baso % (Auto) Lymph # (Auto) [place] # (Auto) Eos # (Auto) Baso # (Auto) Abs Immat Gran (auto) Absolute Neuts (auto) Absolute Nucleated RBC Nucleated RBC % (auto) Sodium Potassium Chloride Carbon Dioxide Anion Gap BUN Creatinine Estim Creat Clear Calc Estimated GFR POC Glucose Fasting Glucose Calcium Phosphorus Total Bilirubin AST ALT Alkaline Phosphatase Lactate Dehydrogenase Total Protein Albumin IgG Total 552 L IgA Total 277 IgM 170 TRINA Interpretation SEE NOTE TERRI Titer TNP TERRI Titer 2 TNP TERRI Titer 3 TNP TERRI Pattern TNP TERRI Pattern 2 TNP TERRI Pattern 3 TNP Ref Lab Test Result SEE COMMENT 12/02/21 12/02/21 12/02/21 05:48 05:48 07:28 WBC 3.7 L RBC 2.81 L Hgb 8.1 L Hct 26.0 L MCV 92.5 MCH 28.8 MCHC 31.2 RDW 22.1 H Plt Count 258 MPV 9.2 L Immature Gran % (Auto) 0.5 H Neut % (Auto) 73.5 H Lymph % (Auto) 15.8 L [place] % (Auto) 8.8 Eos % (Auto) 1.1 Baso % (Auto) 0.3 Lymph # (Auto) 0.6 L [place] # (Auto) 0.3 Eos # (Auto) 0.0 Baso # (Auto) 0.0 Abs Immat Gran (auto) 0.02 Absolute Neuts (auto) 2.8 Absolute Nucleated RBC 0.000 Nucleated RBC % (auto) 0.0 Sodium 138 Potassium 3.8 Chloride 107 Carbon Dioxide 28 Anion Gap 7 L BUN 8 L Creatinine 0.45 L Estim Creat Clear Calc 74.2 Estimated GFR > 60 POC Glucose 159 H Fasting Glucose 44 L* Calcium 7.2 L Phosphorus 2.0 L Total Bilirubin 1.3 H AST 28 D ALT 41 H Alkaline Phosphatase 178 H Lactate Dehydrogenase 351 H Total Protein 3.5 L D Albumin 1.8 L D IgG Total IgA Total IgM TRINA Interpretation TERRI Titer TERRI Titer 2 TERRI Titer 3 TERRI Pattern TERRI Pattern 2 TERRI Pattern 3 Ref Lab Test Result 12/02/21 12/02/21 12/02/21 11:51 15:12 19:27 WBC RBC Hgb Hct MCV MCH MCHC RDW Plt Count MPV Immature Gran % (Auto) Neut % (Auto) Lymph % (Auto) [place] % (Auto) Eos % (Auto) Baso % (Auto) Lymph # (Auto) [place] # (Auto) Eos # (Auto) Baso # (Auto) Abs Immat Gran (auto) Absolute Neuts (auto) Absolute Nucleated RBC Nucleated RBC % (auto) Sodium Potassium Chloride Carbon Dioxide Anion Gap BUN Creatinine Estim Creat Clear Calc Estimated GFR POC Glucose 81 120 H 111 Fasting Glucose Calcium Phosphorus Total Bilirubin AST ALT Alkaline Phosphatase Lactate Dehydrogenase Total Protein Albumin IgG Total IgA Total IgM TRINA Interpretation TERRI Titer TERRI Titer 2 TERRI Titer 3 TERRI Pattern TERRI Pattern 2 TERRI Pattern 3 Ref Lab Test Result 12/03/21 12/03/21 12/03/21 06:01 06:01 07:09 WBC 10.1 RBC 3.14 L Hgb 9.0 L Hct 28.9 L MCV 92.0 MCH 28.7 MCHC 31.1 RDW 22.5 H Plt Count 260 MPV 9.2 L Immature Gran % (Auto) 0.7 H Neut % (Auto) 90.0 H Lymph % (Auto) 3.7 L [place] % (Auto) 5.1 Eos % (Auto) 0.3 Baso % (Auto) 0.2 Lymph # (Auto) 0.4 L [place] # (Auto) 0.5 Eos # (Auto) 0.0 Baso # (Auto) 0.0 Abs Immat Gran (auto) 0.07 H Absolute Neuts (auto) 9.1 H Absolute Nucleated RBC 0.000 Nucleated RBC % (auto) 0.0 Sodium 137 Potassium 4.1 Chloride 104 Carbon Dioxide 28 Anion Gap 9 L BUN 10 Creatinine 0.46 L Estim Creat Clear Calc 72.6 Estimated GFR > 60 POC Glucose 64 Fasting Glucose 59 L* Calcium 7.4 L Phosphorus 2.2 L Total Bilirubin 1.4 H AST 27 ALT 39 H Alkaline Phosphatase 197 H Lactate Dehydrogenase Total Protein 4.0 L Albumin 2.0 L IgG Total IgA Total IgM TRINA Interpretation TERRI Titer TERRI Titer 2 TERRI Titer 3 TERRI Pattern TERRI Pattern 2 TERRI Pattern 3 Ref Lab Test Result 12/03/21 12/03/21 12/03/21 11:30 16:05 19:26 WBC RBC Hgb Hct MCV MCH MCHC RDW Plt Count MPV Immature Gran % (Auto) Neut % (Auto) Lymph % (Auto) [place] % (Auto) Eos % (Auto) Baso % (Auto) Lymph # (Auto) [place] # (Auto) Eos # (Auto) Baso # (Auto) Abs Immat Gran (auto) Absolute Neuts (auto) Absolute Nucleated RBC Nucleated RBC % (auto) Sodium Potassium Chloride Carbon Dioxide Anion Gap BUN Creatinine Estim Creat Clear Calc Estimated GFR POC Glucose 113 128 H 138 H Fasting Glucose Calcium Phosphorus Total Bilirubin AST ALT Alkaline Phosphatase Lactate Dehydrogenase Total Protein Albumin IgG Total IgA Total IgM TRINA Interpretation TERRI Titer TERRI Titer 2 TERRI Titer 3 TERRI Pattern TERRI Pattern 2 TERRI Pattern 3 Ref Lab Test Result Imaging Radiology Impressions: ITS Impressions Chest X-Ray 11/29/21 13:00 IMPRESSION: Hyperinflated lungs without acute process. Abdomen/Pelvis CT 11/29/21 16:41 IMPRESSION: 1. CT chest. No suspicious lung mass. No acute abnormality of chest. 2. CT scan abdomen and pelvis. No abdominal or pelvic mass. No acute abnormality. Chest CT 11/29/21 16:41 IMPRESSION: 1. CT chest. No suspicious lung mass. No acute abnormality of chest. 2. CT scan abdomen and pelvis. No abdominal or pelvic mass. No acute abnormality. Head CT 11/29/21 16:41 IMPRESSION: No evidence of acute intracranial hemorrhage or edematous territorial infarction. Mental Status Exam Mental Status Exam Patient Appearance: Appropriate Patient Orientation: Person, Place, Time and Situation Level of Consciousness: Awake, Restless and Alert Patient Behavior: Appropriate and Guarded Mood Description: Constricted, Anxious and Apprehensive Affect Description: Constricted, Nervous and Apprehensive Patient Cognition Impaired: No Ability to Follow Directions: Good Speech Pattern: Clear Memory Description: Intact Hallucinations: None Delusions: Not Present Thought Process: Rumination Thought Content: positive for Obsessional Thoughts, positive for Preoccupation, negative for Suicidal Ideation or negative for Homicidal Ideation Depressive Symptoms: Increased Anxiety, Insomnia, Increased Irritability and Thoughts of /Suicide Judgement: Fair Medications Medications Current Medications Acetaminophen (Acetaminophen 325 Mg Tablet) 650 mg PO Q6H PRN PRN Reason: Pain, Mild (Pain Scale 1-3) Last Admin: 12/03/21 14:53 Dose: 650 mg Documented by: Aspirin (Aspirin 325 Mg Tablet) 325 mg PO BID [facility] Last Admin: 12/03/21 09:22 Dose: 325 mg Documented by: Cyanocobalamin (Cyanocobalamin (Vitamin B-12) 500 Mcg Tablet) 500 mcg PO DAILY [facility] Last Admin: 12/03/21 09:22 Dose: 500 mcg Documented by: Docusate Sodium (Docusate Sodium 100 Mg Capsule) 100 mg PO DAILY PRN PRN Reason: Constipation Enoxaparin Sodium (Enoxaparin Sodium 40 Mg/0.4 Ml Syringe) 40 mg SUBCUT Q24H [facility] Last Admin: 12/02/21 20:10 Dose: Not Given Documented by: Ferrous Sulfate (Ferrous Sulfate 324 Mg Tablet.) 324 mg PO DAILY [facility] Last Admin: 12/03/21 09:22 Dose: 324 mg Documented by: Mirtazapine (Mirtazapine 7.5 Mg Tablet) 7.5 mg PO BEDTIME [facility] Multivitamins/Vitamin C (Multivitamin Tablet) 1 tab PO DAILY [facility] Last Admin: 12/03/21 09:22 Dose: 1 tab Documented by: Omeprazole (Omeprazole 20 Mg Capsule.) 20 mg PO DAILY@0630 [facility] Last Admin: 12/03/21 05:37 Dose: 20 mg Documented by: Ondansetron HCl (Ondansetron Hcl 4 Mg/2 Ml Vial) 4 mg IVPUSH Q8H PRN PRN Reason: Nausea and Vomiting Oxycodone HCl (Oxycodone Hcl Immed Release 5 Mg Tablet) 5 mg PO Q6H PRN PRN Reason: Pain, Moderate (Pain Scale 4-6 Last Admin: 12/03/21 17:59 Dose: 5 mg Documented by: Pharmacy Consult (Consult Rx Perform Med Rec) 1 each MISCELLANE ONCE PRN PRN Reason: Consult order Potassium Phos/Sodium Phos (Sodium,Potassium Phosphates Powd.Pack) 1 packet PO QID [facility] Last Admin: 12/03/21 17:56 Dose: 1 packet Documented by: Sodium Chloride (0.9 % Sodium Chloride Flush 3 Ml Syringe) 3 ml IVFLUSH QSHIFT [facility] Last Admin: 12/03/21 14:54 Dose: 3 ml Documented by: Vitamin D (Cholecalciferol (Vitamin D3) 25 Mcg Tablet) 25 mcg PO DAILY [facility] Last Admin: 12/03/21 09:22 Dose: 25 mcg Documented by: Allergies Allergies Allergy/AdvReac Type Severity Reaction Status Date / Time No Known Allergies Allergy Unverified 11/29/21 11:24 [No Known Allergies*] Assessment & Plan Assessment & Plan (1) Avoidant and restrictive food intake disorder: Status: Acute Code(s): F50.82 - Avoidant/restrictive food intake disorder (2) OCD (obsessive compulsive disorder): Status: Acute Code(s): F42.9 - Obsessive-compulsive disorder, unspecified (3) Generalized anxiety disorder: Status: Acute Code(s): F41.1 - Generalized anxiety disorder Plan The patient is presenting with a very difficult situation. She has chronic ritualistic eating marked by limitation of range of what she will eat and avoidance of certain foods. She has severe malnourishment protein malnourishment and this will be contributing to her anemia fracture and ability to heal. If tried to explain this to the patient her anxiety makes it difficult for her to take in. Strategies reviewed with the hospitalist service. For now discussed the use of mirtazapine to help with anxiety insomnia may increase appetite and would also use some doses of lorazepam given patient's severe anxiety and a setting that she cannot control. Control is a significant issue for for the patient and her feeling not able to control her present situation and not having her normal strategies to deal with stress and anxiety and her internal state will be very difficult for her. I spent _60____ minutes with the patient and/or on the patient floor today, greater than?50% of which was spent counseling/coordinating care.
[2021-12-03 23:33] VITALS: BP 149/75; PULSE 90; RESP 18; TEMP 37.8; O2SAT 100
[2021-12-04] VITALS (7 sets, daily range): BP systolic 108–131; BP diastolic 56–73; PULSE 63–91; RESP 18–22; TEMP 36.2–37.1; O2SAT 98–100
[2021-12-04 06:19] LABS: Phosphorus 2.2 mg/dL (2.7-4.5)
[2021-12-04] MEDS: Acetaminophen 325 MG TABLET 650 MG PO ×3 (06:28→21:10)
[2021-12-04] MEDS: Omeprazole 20 MG CAPSULE.DR PO (06:29)
[2021-12-04] MEDS: oxyCODONE HCl Immed Release 5 MG TABLET PO ×3 (06:29→21:10)
[2021-12-04 07:27] LABS: Glucose, Whole Blood 83 mg/dL (60-115)
[2021-12-04 08:24] LABS: Hematocrit 25.6 % (37.0-47.0); Hemoglobin 8.1 g/dl (12.0-16.0); Imm Gran Abs Auto 0.07 X10*3/uL (0.00-0.03); Imm Gran Pct Auto 1.3 % (0.0-0.4); Lymphocytes Absolute Auto 0.2 X10*3/uL (1.2-4.9); Lymphocytes Percent Auto 3.7 % (20-40); Mean Corpuscular HGB Conc 31.6 g/dl (31.0-35.0); Mean Corpuscular Hemoglobin 29.3 pg (27.0-33.0); Mean Corpuscular Volume 92.8 fL (80.0-98.0); Mean Platelet Volume 8.7 fL (9.4-12.3); Monocytes Absolute Auto 0.4 X10*3/uL (0.1-1.2); Monocytes Percent Auto 7.9 % (2-11); Neutrophils Absolute Auto 4.8 x10*3/uL (2.0-8.3); Neutrophils Percent Auto 87.1 % (45-73); Platelet Count 241 X10*3/uL (160-400); Red Blood Count 2.76 X10*6/uL (4.20-5.50); Red Cell Distribution Width 22.5 % (11.0-16.0); White Blood Count 5.5 X10*3/uL (4.8-10.8)
[2021-12-04 08:35] LABS: MANUAL DIFF FLAG SCAN
[2021-12-04] MEDS: Cholecalciferol (Vitamin D3) 25 MCG TABLET PO (08:36)
[2021-12-04] MEDS: 0.9 % Sodium Chloride Flush 3 ML SYRINGE IVFLUSH ×3 (08:36→21:11)
[2021-12-04] MEDS: Multivitamin TABLET 1 TAB PO (08:36)
[2021-12-04] MEDS: Cyanocobalamin (Vitamin B-12) 500 MCG TABLET PO (08:36)
[2021-12-04] MEDS: Aspirin 325 MG TABLET PO ×2 (08:37→21:09)
[2021-12-04] MEDS: Sodium,Potassium Phosphates POWD.PACK 1 PACKET PO ×4 (08:37→21:11)
[2021-12-04 11:46] LABS: Glucose, Whole Blood 57 mg/dL (60-115)
[2021-12-04 11:59] LABS: Glucose, Whole Blood 65 mg/dL (60-115)
--- NOTE | 2021-12-04 12:08 | P.PNIM_ITS ---
Subjective Subjective Date of Service: 12/04/21 Interval History: Resistant to care. Denies receiving meds and complains of fever(none of which is documented) Review of Systems denies chest pain Denies shortness of breath Denies nausea and diarrhea admits to nervousness and anxiety Physical Exam Vital Signs: Vital Signs: Last Vital Signs Temp 98.5 F 12/04/21 11:26 Pulse 63 12/04/21 11:26 Resp 20 12/04/21 11:26 BP 126/64 12/04/21 11:26 Pulse Ox 100 12/04/21 11:26 BMI result Body Mass Index 19.1 Const: Other: awake alert anxious. cachectic; ill-appearing Resp: Other: clear to auscultation bilaterally no rales rhonchi or wheezes Cardio: Other: no S4; positive S1-S2; no S3 or murmurs rubs or gallops GI: Other: soft nontender nondistended normoactive bowel Neuro: Other: cranial nerves 2-12 grossly intact as tested; motor 5/5 all extremities sensation in Objective Data Active Medications Acetaminophen (Acetaminophen 325 Mg Tablet) 650 mg PO Q6H PRN PRN Reason: Pain, Mild (Pain Scale 1-3) Last Admin: 12/04/21 06:28 Dose: 650 mg Documented by: DAVID Aspirin (Aspirin 325 Mg Tablet) 325 mg PO BID [facility] Last Admin: 12/04/21 08:37 Dose: 325 mg Documented by: PER Cyanocobalamin (Cyanocobalamin (Vitamin B-12) 500 Mcg Tablet) 500 mcg PO DAILY [facility] Last Admin: 12/04/21 08:36 Dose: 500 mcg Documented by: PER Docusate Sodium (Docusate Sodium 100 Mg Capsule) 100 mg PO DAILY PRN PRN Reason: Constipation Enoxaparin Sodium (Enoxaparin Sodium 40 Mg/0.4 Ml Syringe) 40 mg SUBCUT Q24H [facility] Last Admin: 12/03/21 20:30 Dose: Not Given Documented by: DAVID Non-Admin Reason: Patient Refused Ferrous Sulfate (Ferrous Sulfate 324 Mg Tablet.) 324 mg PO DAILY [facility] Last Admin: 12/04/21 08:37 Dose: Not Given Documented by: PER Non-Admin Reason: Patient Refused Mirtazapine (Mirtazapine 7.5 Mg Tablet) 7.5 mg PO BEDTIME [facility] Last Admin: 12/03/21 20:32 Dose: Not Given Documented by: DAVID Non-Admin Reason: previous dose given already Multivitamins/Vitamin C (Multivitamin Tablet) 1 tab PO DAILY [facility] Last Admin: 12/04/21 08:36 Dose: 1 tab Documented by: PER Omeprazole (Omeprazole 20 Mg Capsule.Dr) 20 mg PO DAILY@0630 [facility] Last Admin: 12/04/21 06:29 Dose: 20 mg Documented by: DAVID Ondansetron HCl (Ondansetron Hcl 4 Mg/2 Ml Vial) 4 mg IVPUSH Q8H PRN PRN Reason: Nausea and Vomiting Oxycodone HCl (Oxycodone Hcl Immed Release 5 Mg Tablet) 5 mg PO Q6H PRN PRN Reason: Pain, Moderate (Pain Scale 4-6 Last Admin: 12/04/21 06:29 Dose: 5 mg Documented by: DAVID Pharmacy Consult (Consult Rx Perform Med Rec) 1 each MISCELLANE ONCE PRN PRN Reason: Consult order Potassium Phos/Sodium Phos (Sodium,Potassium Phosphates Powd.Pack) 1 packet PO QID [facility] Last Admin: 12/04/21 08:37 Dose: 1 packet Documented by: PER Sodium Chloride (0.9 % Sodium Chloride Flush 3 Ml Syringe) 3 ml IVFLUSH QSHIFT [facility] Last Admin: 12/04/21 08:36 Dose: 3 ml Documented by: PER Vitamin D (Cholecalciferol (Vitamin D3) 25 Mcg Tablet) 25 mcg PO DAILY [facility] Last Admin: 12/04/21 08:36 Dose: 25 mcg Documented by: PER Labs CBC & Chem 7: 12/04/21 08:13 12/03/21 06:01 Labs: Laboratory Results - last 24 hr 11/30/21 12/03/21 12/03/21 07:08 16:05 19:26 MCV MCH MCHC RDW Plt Count MPV Immature Gran % (Auto) Neut % (Auto) Lymph % (Auto) [place] % (Auto) Eos % (Auto) Baso % (Auto) Lymph # (Auto) [place] # (Auto) Eos # (Auto) Baso # (Auto) Abs Immat Gran (auto) Absolute Neuts (auto) Absolute Nucleated RBC Nucleated RBC % (auto) Smear Tech's Comments POC Glucose 128 H 138 H Phosphorus Abnorm Protein Band 1 TNP Abnorm Protein Band 2 TNP Abnorm Protein Band 3 TNP 12/04/21 12/04/21 12/04/21 05:26 07:08 08:13 MCV 92.8 MCH 29.3 MCHC 31.6 RDW 22.5 H Plt Count 241 MPV 8.7 L Immature Gran % (Auto) 1.3 H Neut % (Auto) 87.1 H Lymph % (Auto) 3.7 L [place] % (Auto) 7.9 Eos % (Auto) 0.0 Baso % (Auto) 0.0 Lymph # (Auto) 0.2 L [place] # (Auto) 0.4 Eos # (Auto) 0.0 Baso # (Auto) 0.0 Abs Immat Gran (auto) 0.07 H Absolute Neuts (auto) 4.8 Absolute Nucleated RBC 0.000 Nucleated RBC % (auto) 0.0 Smear Tech's Comments Not Reportable POC Glucose 83 Phosphorus 2.2 L Abnorm Protein Band 1 Abnorm Protein Band 2 Abnorm Protein Band 3 12/04/21 12/04/21 11:36 11:56 MCV MCH MCHC RDW Plt Count MPV Immature Gran % (Auto) Neut % (Auto) Lymph % (Auto) [place] % (Auto) Eos % (Auto) Baso % (Auto) Lymph # (Auto) [place] # (Auto) Eos # (Auto) Baso # (Auto) Abs Immat Gran (auto) Absolute Neuts (auto) Absolute Nucleated RBC Nucleated RBC % (auto) Smear Tech's Comments POC Glucose 57 L* 65 Phosphorus Abnorm Protein Band 1 Abnorm Protein Band 2 Abnorm Protein Band 3 Assessment and Plan (1) Normocytic anemia: Status: Acute (2) Failure to thrive in adult: Status: Acute Plan 61-year-old female with past medical history of recent hip fracture status post IM nail as well as normocytic anemia presents to the hospital with complaints of generalized weakness found to have anemia and failure to thrive 1.Normocytic anemia - needs steady nutritinal input - follow H&H 2.Failure to thrive - appears to be secondary to deconditioning as well as malnutrition - PT OT - Remeron added -agrees to Evita or STR; case Management aware 3.Closed intertrochanteric fracture femur status post IM nail - as per Ortho 4.Moderate protein malnutrition cachexia/generalized weakness - 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
[2021-12-04 15:45] LABS: Glucose, Whole Blood 103 mg/dL (60-115)
--- NOTE | 2021-12-04 17:33 | PC.NURSE ---
Pt with swelling to bilateral lower extremities and feet. Lower legs reddened, weeping. right outer calf with open area- xeroform and dsd applied. Dr Day notified of increase in weeping to lower extremities. Pt refuses to elevate legs on pillows while in bed. Sits at edge of bed with legs dangling. Will continue to encourage to elevate
[2021-12-04 20:32] LABS: Glucose, Whole Blood 189 mg/dL (60-115)
[2021-12-04] MEDS: Mirtazapine 15 MG TABLET PO (21:09)
--- NOTE | 2021-12-04 21:16 | PC.NURSE ---
pt accusatory and demanding. reporting is in pain and has been calling. note; pt just called for night med and pain med, no staff has told this radio news writer about any other calls about pain meds from this pt since this shift. when pm meds and pain meds given to pt, pt now reporting/accusing all meds should be given with OJ and it should be in the notes from md. pt also upset about dose of remron, reporting it should be double the dose. when asked if she wants me to call the md, pt ignored the questions. when asked to put legs on pillows for elevation as per md, pt refused and when asked if pt wanted to be cleaned up or change pants d/t pants soiled from weeping legs, pt refused. will cont to monitor
[2021-12-05] VITALS (7 sets, daily range): BP systolic 104–136; BP diastolic 46–72; PULSE 64–120; RESP 16–18; TEMP 36.2–38.4; O2SAT 97–100; BMI 19.1
[2021-12-05] MEDS: Acetaminophen 325 MG TABLET 650 MG PO ×3 (03:02→23:24)
[2021-12-05] MEDS: oxyCODONE HCl Immed Release 5 MG TABLET PO ×3 (03:03→20:04)
[2021-12-05 05:04] LABS: Basophils Percent Auto 0.2 % (0-2); Eosinophils Percent Auto 0.2 % (0-4); Hematocrit 23.8 % (37.0-47.0); Hemoglobin 7.4 g/dl (12.0-16.0); Imm Gran Abs Auto 0.03 X10*3/uL (0.00-0.03); Imm Gran Pct Auto 0.5 % (0.0-0.4); Lymphocytes Absolute Auto 0.2 X10*3/uL (1.2-4.9); Lymphocytes Percent Auto 3.6 % (20-40); MANUAL DIFF FLAG SCAN; Mean Corpuscular HGB Conc 31.1 g/dl (31.0-35.0); Mean Corpuscular Hemoglobin 28.6 pg (27.0-33.0); Mean Corpuscular Volume 91.9 fL (80.0-98.0); Monocytes Absolute Auto 0.4 X10*3/uL (0.1-1.2); Monocytes Percent Auto 6.5 % (2-11); Neutrophils Absolute Auto 5.9 x10*3/uL (2.0-8.3); Platelet Count 232 X10*3/uL (160-400); Red Blood Count 2.59 X10*6/uL (4.20-5.50); Red Cell Distribution Width 22.2 % (11.0-16.0); SCAN SMEAR FLAG 1; White Blood Count 6.6 X10*3/uL (4.8-10.8)
[2021-12-05 05:24] LABS: Alanine Aminotransferase 114 U/L (0-31); Albumin Level 1.7 g/dL (3.5-5.0); Alkaline Phosphatase 257 U/L (39-117); Anion Gap 10 (12-20); Aspartate Amino Transferase 116 U/L (5-31); Bilirubin Total 1.3 mg/dL (0.0-1.0); Blood Urea Nitrogen 12 mg/dL (9-16); Calcium 7.3 mg/dL (8.4-10.2); Carbon Dioxide 28 mmol/L (22-29); Chloride 102 mmol/L (96-108); Creatinine Clr Calc Pharmacy 71.1; Estimated Glomerular Filt Rate > 60; Glucose Fasting 79 mg/dL (60-99); Phosphorus 2.8 mg/dL (2.7-4.5); Potassium 4.3 mmol/L (3.3-5.1); Sodium 136 mmol/L (135-145); Total Protein 3.6 g/dL (6.5-8.0)
[2021-12-05 05:26] LABS: SLIDE REVIEW VERIFIED
[2021-12-05] MEDS: Omeprazole 20 MG CAPSULE.DR PO (06:01)
[2021-12-05 08:12] LABS: Glucose, Whole Blood 70 mg/dL (60-115)
[2021-12-05] MEDS: Aspirin 325 MG TABLET PO (09:28)
[2021-12-05] MEDS: Sodium,Potassium Phosphates POWD.PACK 1 PACKET PO (09:28)
[2021-12-05] MEDS: Cyanocobalamin (Vitamin B-12) 500 MCG TABLET PO (09:28)
[2021-12-05] MEDS: Multivitamin TABLET 1 TAB PO (09:28)
[2021-12-05] MEDS: Cholecalciferol (Vitamin D3) 25 MCG TABLET PO (09:28)
[2021-12-05] MEDS: 0.9 % Sodium Chloride Flush 3 ML SYRINGE IVFLUSH ×3 (09:32→20:04)
--- NOTE | 2021-12-05 10:48 | PC.NURSE ---
Skin assessment completed today. On admission patient has a skin tear to right AC, right lower leg and left hip. Xeroform applied to all skin tears covered with Tegaderm. She also has a stage 3 to sacrum with yellow slough. Triad applied covered with foam dressing. Bilateral legs are edematous and leaking yellow fluid. ABD pads applied to bilateral legs, wrapped with roll gauze and ines wrap. Scattered bruising on arms and legs.
[2021-12-05 11:47] LABS: Glucose, Whole Blood 112 mg/dL (60-115)
--- NOTE | 2021-12-05 12:03 | P.PNIM_ITS ---
Subjective Subjective Date of Service: 12/05/21 Interval History: L hip pain controlled Denies lightheadedness/dizziness Has weeping edema of legs Review of Systems Review of Systems: Yes all other systems are reviewed and are negative Physical Exam Vital Signs: Vital Signs: Last Vital Signs Temp 97.1 F 12/05/21 11:37 Pulse 92 12/05/21 11:37 Resp 18 12/05/21 11:37 BP 133/66 12/05/21 11:37 Pulse Ox 100 12/05/21 11:37 BMI result Body Mass Index 19.1 Gen: in no acute distress, cachectic HEENT: sclera anicteric, moist mucus membranes Neck: supple Lungs: clear to auscultation bilaterally Heart: regular rate and rhythm, no murmurs Abd: soft, non-tender, non-distended Ext: no edema Skin: warm/well-perfused Neuro: alert and oriented x3, no focal findings Psych: appropriate affect Objective Data Active Medications Acetaminophen (Acetaminophen 325 Mg Tablet) 650 mg PO Q6H PRN PRN Reason: Pain, Mild (Pain Scale 1-3) Last Admin: 12/05/21 03:02 Dose: 650 mg Documented by: KOMAL Aspirin (Aspirin 325 Mg Tablet) 325 mg PO BID [facility] Last Admin: 12/05/21 09:28 Dose: 325 mg Documented by: JOSE Cyanocobalamin (Cyanocobalamin (Vitamin B-12) 500 Mcg Tablet) 500 mcg PO DAILY [facility] Last Admin: 12/05/21 09:28 Dose: 500 mcg Documented by: JOSE Docusate Sodium (Docusate Sodium 100 Mg Capsule) 100 mg PO DAILY PRN PRN Reason: Constipation Enoxaparin Sodium (Enoxaparin Sodium 40 Mg/0.4 Ml Syringe) 40 mg SUBCUT Q24H [facility] Last Admin: 12/04/21 21:14 Dose: Not Given Documented by: DAVID Non-Admin Reason: Patient Refused Ferrous Sulfate (Ferrous Sulfate 324 Mg Tablet.) 324 mg PO DAILY [facility] Last Admin: 12/05/21 09:28 Dose: Not Given Documented by: JOSE Non-Admin Reason: Patient Refused Mirtazapine (Mirtazapine 15 Mg Tablet) 15 mg PO DAILY@1999 [facility] Last Admin: 12/04/21 21:09 Dose: 15 mg Documented by: DAVID Multivitamins/Vitamin C (Multivitamin Tablet) 1 tab PO DAILY [facility] Last Admin: 12/05/21 09:28 Dose: 1 tab Documented by: JOSE Omeprazole (Omeprazole 20 Mg Capsule.Dr) 20 mg PO DAILY@0630 [facility] Last Admin: 12/05/21 06:01 Dose: 20 mg Documented by: KOMAL Ondansetron HCl (Ondansetron Hcl 4 Mg/2 Ml Vial) 4 mg IVPUSH Q8H PRN PRN Reason: Nausea and Vomiting Oxycodone HCl (Oxycodone Hcl Immed Release 5 Mg Tablet) 5 mg PO Q4H PRN PRN Reason: Pain, Severe (Pain Scale 7-10) Last Admin: 12/05/21 09:28 Dose: 5 mg Documented by: JOSE Pharmacy Consult (Consult Rx Perform Med Rec) 1 each MISCELLANE ONCE PRN PRN Reason: Consult order Potassium Phos/Sodium Phos (Sodium,Potassium Phosphates Powd.Pack) 1 packet PO QID [facility] Last Admin: 12/05/21 09:28 Dose: 1 packet Documented by: JOSE Sodium Chloride (0.9 % Sodium Chloride Flush 3 Ml Syringe) 3 ml IVFLUSH QSHIFT [facility] Last Admin: 12/05/21 09:32 Dose: 3 ml Documented by: JOSE Vitamin D (Cholecalciferol (Vitamin D3) 25 Mcg Tablet) 25 mcg PO DAILY [facility] Last Admin: 12/05/21 09:28 Dose: 25 mcg Documented by: JOSE Labs CBC & Chem 7: 12/05/21 04:24 12/05/21 04:24 Labs: Laboratory Results - last 24 hr 12/04/21 12/04/21 12/05/21 15:11 19:42 04:24 MCV 91.9 MCH 28.6 MCHC 31.1 RDW 22.2 H Plt Count 232 MPV 9.0 L Immature Gran % (Auto) 0.5 H Neut % (Auto) 89.0 H Lymph % (Auto) 3.6 L [place] % (Auto) 6.5 Eos % (Auto) 0.2 Baso % (Auto) 0.2 Lymph # (Auto) 0.2 L [place] # (Auto) 0.4 Eos # (Auto) 0.0 Baso # (Auto) 0.0 Abs Immat Gran (auto) 0.03 Absolute Neuts (auto) 5.9 Absolute Nucleated RBC 0.000 Nucleated RBC % (auto) 0.0 Smear Tech's Comments VERIFIED Anion Gap Estim Creat Clear Calc Estimated GFR POC Glucose 103 189 H Fasting Glucose Calcium Phosphorus Total Bilirubin AST ALT Alkaline Phosphatase Total Creatine Kinase Total Protein Albumin 12/05/21 12/05/21 12/05/21 04:24 07:57 11:40 MCV MCH MCHC RDW Plt Count MPV Immature Gran % (Auto) Neut % (Auto) Lymph % (Auto) Woodson % (Auto) Eos % (Auto) Baso % (Auto) Lymph # (Auto) Woodson # (Auto) Eos # (Auto) Baso # (Auto) Abs Immat Gran (auto) Absolute Neuts (auto) Absolute Nucleated RBC Nucleated RBC % (auto) Smear Tech's Comments Anion Gap 10 L Estim Creat Clear Calc 71.1 Estimated GFR > 60 POC Glucose 70 112 Fasting Glucose 79 Calcium 7.3 L Phosphorus 2.8 Total Bilirubin 1.3 H AST 116 H ALT 114 H Alkaline Phosphatase 257 H D Total Creatine Kinase 26 Total Protein 3.6 L Albumin 1.7 L Assessment and Plan (1) Closed intertrochanteric fracture of femur: Status: Acute (2) Malnutrition: Status: Acute (3) Failure to thrive in adult: Status: Acute Plan hospital d#5 61yo F s/p recent IM nailing for L intertrochanteric femur fx, sent in from Orthopedics office with symptomatic anemia/FTT # anemia, normocytic - transfused 1u pRBCs 11/29/21 - continue iron + B12 repletion PO # hypoglycemia - resolved # hypophosphatemia - repleted, resolved. ?refeeding syndrome # postop IMN L intertrochanteric fx - nathan out, continue VTE ppx 4 wk postop # severe protein/calorie malnutrition # FTT - supplements - psych consult pending- ?eating disorder # VTE ppx - LMWH x 4 wk postop # dispo - plan STR, pt prefers [facility] Quality Stroke Does the patient have a stroke diagnosis?: No VTE Prior VTE?: No VTE Risk Level:: Medical - moderate - high VTE Device Contraindication: Treatment Not Indicated VTE Drug Contraindication: N/A - Med Ordered
[2021-12-05] MEDS: Docusate Sodium 100 MG CAPSULE PO (13:43)
--- NOTE | 2021-12-05 16:44 | PM.EVENT ---
Normocytic anemia: Rest of hematological workup has been resulted. No monoclonal protein, blood flow cytometry for PNH was negative. I would recommend another unit of blood transfusion if her blood counts go below 7 gram/dL.
--- NOTE | 2021-12-05 16:52 | MHC.CM.PN ---
CM MET W/PT TO DISCUSS DCP, PER PT SHE WANTED TO GO TO [facility] HOWEVER THEY ARE NOT [facility], PT AGREEABLE TO [facility] SHE DOES NOT WANT TO GO ANY FARTHER AWAY, [facility] REPORTS THEY ARE REVIEWING PT AND ARE AWARE SHE SHOULD BE READY FOR D/C TOMORROW 12/06/21. CM WILL CONT TO FOLLOW D/C NEEDS.
--- NOTE | 2021-12-05 17:41 | PC.NURSE ---
Addendum entered by Uma Teran RN 12/05/21 17:45: Blood cultures and UA ordered. Original Note: At 16:[address] Ro that she hasd a fever of 100.9 orally. This nurse gave her 650 mg Tylenol. Rechecked temperature at 17:20, temperature was 102.1. Informed Dr. Ro. No new orders given.
[2021-12-05 18:42] LABS: Appearance Urine CLEAR; Color Urine DK YELLOW; Glucose Urine UA NEG (NEG); Leukocyte Esterase Urine NEG (NEG); Nitrite Urine NEG (NEG); Specific Gravity - Urine 1.015 (1.005-1.025); Urine Blood NEG (NEG); Urine Ketones NEG (NEG); Urine Protein TRACE MG/DL (NEG-TRACE)
[2021-12-05 19:00] LABS: RBC Urine 0 /HPF (0); Squamous Epithelial Cell Urine 1+ /LPF; UACC CULT YES
[2021-12-05 19:01] LABS: Granular Casts Urine 0-2 /LPF; Mucus Urine 2+ /LPF; WBC Clumps Urine NOTED
[2021-12-05] MEDS: Mirtazapine 15 MG TABLET PO (20:02)
[2021-12-06] MEDS: oxyCODONE HCl Immed Release 5 MG TABLET PO ×2 (02:01→11:48)
[2021-12-06 03:36] VITALS: BP 99/49; PULSE 95; RESP 14; TEMP 37.2; O2SAT 99
[2021-12-06] MEDS: Omeprazole 20 MG CAPSULE.DR PO (05:42)
[2021-12-06 06:04] LABS: Hematocrit 24.8 % (37.0-47.0); Hemoglobin 7.9 g/dl (12.0-16.0); Mean Corpuscular HGB Conc 31.9 g/dl (31.0-35.0); Mean Corpuscular Hemoglobin 28.8 pg (27.0-33.0); Mean Corpuscular Volume 90.5 fL (80.0-98.0); Platelet Count 215 X10*3/uL (160-400); Red Blood Count 2.74 X10*6/uL (4.20-5.50); Red Cell Distribution Width 22.6 % (11.0-16.0); White Blood Count 7.6 X10*3/uL (4.8-10.8)
[2021-12-06 06:31] LABS: Alanine Aminotransferase 105 U/L (0-31); Alkaline Phosphatase 298 U/L (39-117); Anion Gap 13 (12-20); Aspartate Amino Transferase 75 U/L (5-31); Bilirubin Total 1.5 mg/dL (0.0-1.0); Blood Urea Nitrogen 23 mg/dL (9-16); Calcium 7.7 mg/dL (8.4-10.2); Carbon Dioxide 28 mmol/L (22-29); Chloride 101 mmol/L (96-108); Estimated Glomerular Filt Rate > 60; Glucose Random 84 mg/dL (60-115); Magnesium 1.6 mg/dL (1.6-2.6); Phosphorus 3.2 mg/dL (2.7-4.5); Potassium 4.3 mmol/L (3.3-5.1); Sodium 138 mmol/L (135-145); Total Protein 3.9 g/dL (6.5-8.0)
[2021-12-06] MEDS: Multivitamin TABLET 1 TAB PO (07:08)
[2021-12-06] MEDS: 0.9 % Sodium Chloride Flush 3 ML SYRINGE IVFLUSH ×2 (07:08→18:29)
[2021-12-06] MEDS: Cyanocobalamin (Vitamin B-12) 500 MCG TABLET PO (07:08)
[2021-12-06] MEDS: Cholecalciferol (Vitamin D3) 25 MCG TABLET PO (07:08)
[2021-12-06 07:24] VITALS: BP 113/61; PULSE 88; RESP 18; TEMP 37.1; O2SAT 99
[2021-12-06 07:33] LABS: Glucose, Whole Blood 97 mg/dL (60-115)
[2021-12-06] MEDS: cefTRIAXone sodium 1 GM in 0.9 % Sodium Chloride 50 ML IV (08:39)
--- NOTE | 2021-12-06 10:01 | HO.PM.IMPN ---
Subjective Subjective Date of Service: 12/06/21 Interval History: Febrile to 101.2 yesterday afternoon. Some urinary urgency; no hematuria or flank pain. No cough or dyspnea. C/o hip pain. Was constipated, now having frequent BM. Review of Systems Review of Systems: Yes all other systems are reviewed and are negative Physical Exam Vital Signs: Vital Signs: Last Vital Signs Temp 98.7 F 12/06/21 07:24 Pulse 88 12/06/21 07:24 Resp 18 12/06/21 07:24 BP 113/61 12/06/21 07:24 Pulse Ox 99 12/06/21 07:24 BMI result Body Mass Index 19.1 Gen: in no acute distress, cachectic HEENT: sclera anicteric, moist/pale mucus membranes Neck: supple Lungs: clear to auscultation bilaterally Heart: regular rate and rhythm, no murmurs Abd: soft, non-tender, non-distended Ext: no edema Skin: warm/well-perfused, hip incision without erythema/purulence Neuro: alert and oriented x3, no focal findings Psych: appropriate affect Objective Data Active Medications Acetaminophen (Acetaminophen 325 Mg Tablet) 650 mg PO Q6H PRN PRN Reason: Pain, Mild (Pain Scale 1-3) Last Admin: 12/05/21 23:24 Dose: 650 mg Documented by: KOMAL Cyanocobalamin (Cyanocobalamin (Vitamin B-12) 500 Mcg Tablet) 500 mcg PO DAILY [facility] Last Admin: 12/06/21 07:08 Dose: 500 mcg Documented by: WILL Docusate Sodium (Docusate Sodium 100 Mg Capsule) 100 mg PO DAILY PRN PRN Reason: Constipation Last Admin: 12/05/21 13:43 Dose: 100 mg Documented by: JOSE Enoxaparin Sodium (Enoxaparin Sodium 40 Mg/0.4 Ml Syringe) 40 mg SUBCUT Q24H [facility] Last Admin: 12/05/21 21:45 Dose: Not Given Documented by: KOMAL Non-Admin Reason: Patient Refused Ferrous Sulfate (Ferrous Sulfate 324 Mg Tablet.) 324 mg PO DAILY [facility] Last Admin: 12/06/21 07:10 Dose: Not Given Documented by: WILL Non-Admin Reason: Patient Refused Ceftriaxone Sodium 1 gm/ (Sodium Chloride) 50 mls @ 100 mls/hr IV Q24H [facility] Last Infusion: 12/06/21 09:16 Dose: 0 mls/hr Documented by: WILL Mirtazapine (Mirtazapine 15 Mg Tablet) 15 mg PO DAILY@1999 [facility] Last Admin: 12/05/21 20:02 Dose: 15 mg Documented by: KOMAL Multivitamins/Vitamin C (Multivitamin Tablet) 1 tab PO DAILY [facility] Last Admin: 12/06/21 07:08 Dose: 1 tab Documented by: WILL Omeprazole (Omeprazole 20 Mg Capsule.Dr) 20 mg PO DAILY@06 [facility] Last Admin: 12/06/21 05:42 Dose: 20 mg Documented by: KOMAL Ondansetron HCl (Ondansetron Hcl 4 Mg/2 Ml Vial) 4 mg IVPUSH Q8H PRN PRN Reason: Nausea and Vomiting Oxycodone HCl (Oxycodone Hcl Immed Release 5 Mg Tablet) 5 mg PO Q4H PRN PRN Reason: Pain, Severe (Pain Scale 7-10) Last Admin: 12/06/21 02:01 Dose: 5 mg Documented by: KOMAL Pharmacy Consult (Consult Rx Perform Med Rec) 1 each MISCELLANE ONCE PRN PRN Reason: Consult order Sodium Chloride (0.9 % Sodium Chloride Flush 3 Ml Syringe) 3 ml IVFLUSH QSHIFT [facility] Last Admin: 12/06/21 07:08 Dose: 3 ml Documented by: WILL Vitamin D (Cholecalciferol (Vitamin D3) 25 Mcg Tablet) 25 mcg PO DAILY [facility] Last Admin: 12/06/21 07:08 Dose: 25 mcg Documented by: WILL Labs CBC & Chem 7: 12/06/21 05:42 12/06/21 05:42 Labs: Laboratory Results - last 24 hr 12/05/21 12/05/21 12/06/21 11:40 18:33 05:42 MCV 90.5 MCH 28.8 MCHC 31.9 RDW 22.6 H Plt Count 215 MPV 9.0 L Absolute Nucleated RBC 0.000 Nucleated RBC % (auto) 0.0 Anion Gap Estim Creat Clear Calc Estimated GFR POC Glucose 112 Random Glucose Calcium Phosphorus Magnesium Total Bilirubin AST ALT Alkaline Phosphatase Total Protein Albumin Urine Color DK YELLOW Urine Appearance CLEAR Urine pH 6.0 Ur Specific [place] 1.015 Urine Protein TRACE Urine Glucose (UA) NEG Urine Ketones NEG Urine Blood NEG Urine Nitrite NEG Ur Leukocyte Esterase NEG Urine RBC 0 Urine WBC 5-9 H Urine WBC Clumps NOTED Ur Squamous Epith Cells 1+ Urine Bacteria NONE Hyaline Casts 1-4 Granular Casts 0-2 Urine Mucus 2+ Blood Type Antibody Screen 12/06/21 12/06/21 12/06/21 05:42 05:42 07:22 MCV MCH MCHC RDW Plt Count MPV Absolute Nucleated RBC Nucleated RBC % (auto) Anion Gap 13 Estim Creat Clear Calc 63.0 Estimated GFR > 60 POC Glucose 97 Random Glucose 84 Calcium 7.7 L Phosphorus 3.2 Magnesium 1.6 Total Bilirubin 1.5 H AST 75 H ALT 105 H Alkaline Phosphatase 298 H Total Protein 3.9 L Albumin 2.0 L Urine Color Urine Appearance Urine pH Ur Specific [place] Urine Protein Urine Glucose (UA) Urine Ketones Urine Blood Urine Nitrite Ur Leukocyte Esterase Urine RBC Urine WBC Urine WBC Clumps Ur Squamous Epith Cells Urine Bacteria Hyaline Casts Granular Casts Urine Mucus Blood Type O Positive Antibody Screen NEGATIVE Assessment and Plan (1) Closed intertrochanteric fracture of femur: Status: Acute (2) Malnutrition: Status: Acute (3) Failure to thrive in adult: Status: Acute Plan hospital d#6 61yo F s/p recent IM nailing for L intertrochanteric femur fx, sent in from Orthopedics office with symptomatic anemia/FTT # fever - likely UTI- treat with ceftriaxone d#1 and follow UCx. also encourage IS. # anemia, normocytic - transfused 1u pRBCs 11/29/21 and Hb now stable - continue iron + B12 repletion PO - TRINA, TERRI, and flow for PNH all normal # hypoglycemia - resolved, likely was due to inadequate PO intake and poor reserve # hypophosphatemia - repleted, resolved. ?refeeding syndrome # postop IMN L intertrochanteric fx - nathan out, continue VTE ppx 4 wk postop # severe protein/calorie malnutrition # FTT - supplements - psych consult pending- ?eating disorder # VTE ppx - LMWH x 4 wk postop # dispo - plan STR, pt prefers [facility], Covid-19 LIBRADO pending, CM working on payor issues Quality Stroke Does the patient have a stroke diagnosis?: No VTE Prior VTE?: No VTE Risk Level:: Medical - moderate - high VTE Device Contraindication: Treatment Not Indicated VTE Drug Contraindication: N/A - Med Ordered
[2021-12-06 10:50] LABS: COVID-19 Test Negative (Negative)
[2021-12-06 11:08] LABS: C Reactive Protein 30.16 mg/dL (< or = 0.50)
[2021-12-06 11:19] LABS: Glucose, Whole Blood 105 mg/dL (60-115)
[2021-12-06 11:31] LABS: Procalcitonin 2.56 ng/mL
[2021-12-06 11:46] VITALS: BP 141/65; PULSE 84; RESP 18; TEMP 36.4; O2SAT 100
[2021-12-06] MEDS: Acetaminophen 325 MG TABLET 650 MG PO (11:48)
[2021-12-06 15:23] VITALS: BP 116/58; PULSE 81; RESP 16; TEMP 36.3; O2SAT 98
--- NOTE | 2021-12-06 15:32 | MHC.CM.PN ---
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 PATIENT IS ONLY 20% [facility] COONNEDCTED SHE HAS F1005 FULL COVERAGE WHILE IN THE [facility] BUT IS NOT ELIGEABLE FOR SHORT TERM REHAB SHE DOES NOT QUALIFY PER [place] [facility] /DILIP AND PER DIA AT THE [facility] [place] , THIS WAS INFORMED TO PATIENT AND SHE WAS STRONG WILLED I N VERBALIZING THE SHE WAS TOLD BY HER VA ADVOCATE SHE WOULD BE COVERRD FOR REHAB NISA FARIA , WHILE I WAS INT HE ROOM SHE CALLED NISA AND WAS ON SPEAKER THIS 20 % SERVICES CONNECTED ONLY WAS NEW TO HIM AND HE REPORTED HE WOULD CHECK INTO THIS WITH PEVELY CONTACT S , I OFFERED TO MAKE [facility] SERVICE REFERRAL FOR [facility] APPLICATION AND SHE DECLINED . DISCHARGE PLAN STR IF SHE HAS COVERAGE VS HOME
[2021-12-06 16:07] LABS: Glucose, Whole Blood 80 mg/dL (60-115)
--- NOTE | 2021-12-06 16:27 | PHA.PROG ---
Admission Date/Time: December 01, 2021 12:45 Indication: Bacteremia Weight in k.555 kg Adjusted body weight in Kg: [place] body weight in Kg: Obesity Dosing Indication % IBW: Serum Creatinine - Last 168 Hours 11/30/21 12/02/21 12/03/21 07:08 05:48 06:01 Creatinine 0.54 0.45 L 0.46 L 12/05/21 12/06/21 04:24 05:42 Creatinine 0.47 L 0.53 Estimated CrCl and GFR - Last 168 Hours 11/30/21 12/02/21 12/03/21 07:08 05:48 06:01 Estim Creat Clear Calc 61.9 74.2 72.6 Estimated GFR > 60 > 60 > 60 12/05/21 12/06/21 04:24 05:42 Estim Creat Clear Calc 71.1 63.0 Estimated GFR > 60 > 60 Vancomycin Loading Dose: 750mg x1 Current Vancomycin Dosing Regimen: 500mg q12h Vancomycin Monitoring using AUC goal of 400 - 600 range with trough as surrogate en trough: 10.4, AUC 350 Date and Time for next Vancomycin Level to be drawn: 12/08 @0500 Pharmacist Comments on Vancomycin Plan: pt severely malnourished. will dose conservatively Vancomycin dosing will take advantage of [employer] as a clinical decision support tool that uses Bayesian modeling to calculate individual patient's pharmacokinetic parameters and forecast the patient's drug concentration time course with the target goal AUC 24 range of 400 - 600 mg/L/hr.
[2021-12-06] MEDS: vancomycin HCL 750 MG in 0.9 % Sodium Chloride 250 ML 265 MG IV (18:29)
[2021-12-06 19:35] VITALS: BP 146/66; PULSE 95; RESP 18; TEMP 37.2; O2SAT 96
[2021-12-06] MEDS: Mirtazapine 15 MG TABLET PO (21:34)
[2021-12-06] MEDS: Enoxaparin Sodium 40 MG/0.4 ML SYRINGE SUBCUT (21:34)
[2021-12-06 23:16] VITALS: BP 116/57; PULSE 91; RESP 14; TEMP 36.9; O2SAT 95
[2021-12-07] VITALS (7 sets, daily range): BP systolic 90–140; BP diastolic 37–69; PULSE 83–96; RESP 14–18; TEMP 36.1–37.1; O2SAT 97–100
[2021-12-07] MEDS: 0.9 % Sodium Chloride Flush 3 ML SYRINGE IVFLUSH ×3 (00:27→16:50)
[2021-12-07] MEDS: oxyCODONE HCl Immed Release 5 MG TABLET PO ×4 (00:30→21:24)
[2021-12-07] MEDS: Acetaminophen 325 MG TABLET 650 MG PO ×2 (00:31→09:40)
[2021-12-07] MEDS: Omeprazole 20 MG CAPSULE.DR PO (06:51)
[2021-12-07] MEDS: vancomycin HCL 500 MG in 0.9 % Sodium Chloride 100 ML 110 MG IV ×2 (06:52→20:09)
--- NOTE | 2021-12-07 07:30 | CA_ITS ---
Transthoracic Echocardiogram Patient (Last, First, Middle): Karen Long A Gender: Female Date of : 1960 Age: 61 Procedure Date: 12/07/2021 Procedure Type: Transthoracic Echocardiogram Location: S3W Height: 142.24 cm Weight: 38.56 kg BSA: 1.23 m2 Heart Rate: bpm BP: 108 / 52 mmHg [employer] Foreign [employer] Teacher: YR/TO Referring MD: Sol Ro MD Symptoms: GPC bacteremia Study Quality: Fair Conclusions: - Normal left ventricular size and systolic function. There is mildly increased left ventricular wall thickness. The visually estimated ejection fraction is between 55-60%. - Normal right ventricular cavity size and systolic function. - Small pericardial effusion over the right ventricle. Findings Left Ventricle Normal left ventricular size and systolic function. There is mildly increased left ventricular wall thickness. The visually estimated ejection fraction is between 55-60%. There is no evidence of regional wall motion abnormalities. Diastolic function is indeterminate on the basis of available data. Right Ventricle Normal right ventricular cavity size and systolic function. Atria The left atrium was not well visualized. Aortic Valve There is mild calcification of the aortic valve. There is no aortic valve stenosis. There is no aortic valve regurgitation. Mitral Valve Likely normal mitral valve structure and function. There is trace mitral valve regurgitation. There is no mitral valve stenosis. Pulmonic Valve Normal pulmonic valve structure and function. There is trace pulmonic valve regurgitation. Tricuspid Valve Normal tricuspid valve structure and function. There is trace tricuspid valve regurgitation. Normal right atrial pressure. There is no evidence of pulmonary hypertension. Great Vessels The aorta was not well visualized. The visualized portions of the pulmonary artery and branches are normal. Venous The inferior vena cava is normal in size and collapses greater than 50% with inspiration. Pericardium/Pleural Prominent epicardial adipose tissue noted. Small pericardial effusion over the right ventricle. Measurements 2D Linear Measurements IVSd: 0.95 0.6-0.9/0.6-1.0 cm LVIDd: 3.55 3.9-5.3/4.2-5.9 cm LVIDd Index: 2.89 2.4-3.2/2.2-3.1 cm/m2 LVIDs: 2.66 2.0-3.6 cm LVPWd: 1.05 0.7-1.1 cm LV Mass: 131.17 67-162/88-224 g LV Mass Index: 106.64 43-95/49-115 g/m2 Tricuspid Valve TR Pk Nba: 2.17 TR Pk Grad: 19.00 RA Press: 3.00 RVSP: 22.00 Updated in Other Vendor System with Status of Final Abdelrahman Trujillo MD electronically signed on 12/08/2021 1:54:07 PM with status of Final
[2021-12-07 07:36] LABS: Glucose, Whole Blood 79 mg/dL (60-115)
[2021-12-07 08:48] LABS: Creatinine Clr Calc Pharmacy 69.6; Estimated Glomerular Filt Rate > 60
--- NOTE | 2021-12-07 08:50 | P.CDIC_ITS ---
CDI Concurrent Query Documentation Clarification: PHYSICIAN'S DOCUMENTATION REQUEST Date of Query: 12/07/21 0850 Patient Name: Karen Long Admit Date: 12/01/21 Dear Doctor, A review of the medical record indicates additional documentation may be indicated. Please review below and update the documentation accordingly. Clinical Indicators: Risk Factors/Clinical Indicators/Treatments Wound care noted on 12/06 patient with Pressure Injury Stage III sacrum Foam dressing Based on the above, could you please provide, in the Progress Notes, further information regarding the ulcer/wound: * If a pressure ulcer, please also include the stage* of the ulcer/injury: * Stage 1 - Skin intact, non-blanchable redness * Stage 2 - Partial thickness loss of dermis, includes intact or open blister * Stage 3 - Full thickness tissue not including bone, tendon, or muscle * Stage 4 - Full thickness tissue loss, including exposed bones, tendon, or muscle * Other * Unable to determine *Source: National Pressure Ulcer Advisory Panel (NPUAP) Use of terms such as suspected, likely, concern for, or probable (associated with a specific diagnosis that is being evaluated, monitored, or treated as if it exists) are acceptable and can be coded in the inpatient setting, when documented at the time of discharge. Thank you, Nannette Duong [facility], CDIS Extension: [phone] Please use your independent medical judgment in providing your response. THIS QUERY IS PART OF THE PERMANENT MEDICAL RECORD Provider Response: Other Other Diagnosis: stage 3 sacral pressure ulcer
--- NOTE | 2021-12-07 09:37 | P.PNIM_ITS ---
Subjective Subjective Date of Service: 12/07/21 Interval History: No further fever BCx growing Staph aureus Anxious Review of Systems Review of Systems: Yes all other systems are reviewed and are negative Physical Exam Vital Signs: Vital Signs: Last Vital Signs Temp 97 F 12/07/21 07:17 Pulse 83 12/07/21 08:56 Resp 18 12/07/21 07:17 BP 90/37 L 12/07/21 08:56 Pulse Ox 97 12/07/21 08:56 BMI result Body Mass Index 19.1 Gen: in no acute distress, cachectic HEENT: sclera anicteric, moist/pale mucus membranes Neck: supple Lungs: clear to auscultation bilaterally Heart: regular rate and rhythm, no murmurs Abd: soft, non-tender, non-distended Ext: no edema Skin: warm/well-perfused, hip incision without erythema/purulence Neuro: alert and oriented x3, no focal findings Psych: appropriate affect Objective Data Active Medications Acetaminophen (Acetaminophen 325 Mg Tablet) 650 mg PO Q6H PRN PRN Reason: Pain, Mild (Pain Scale 1-3) Last Admin: 12/07/21 00:31 Dose: 650 mg Documented by: CANDIDA Cyanocobalamin (Cyanocobalamin (Vitamin B-12) 500 Mcg Tablet) 500 mcg PO DAILY [facility] Last Admin: 12/06/21 07:08 Dose: 500 mcg Documented by: WILL Docusate Sodium (Docusate Sodium 100 Mg Capsule) 100 mg PO DAILY PRN PRN Reason: Constipation Last Admin: 12/05/21 13:43 Dose: 100 mg Documented by: JOSE Enoxaparin Sodium (Enoxaparin Sodium 40 Mg/0.4 Ml Syringe) 40 mg SUBCUT Q24H [facility] Last Admin: 12/06/21 21:34 Dose: 40 mg Documented by: SHAYNE Ferrous Sulfate (Ferrous Sulfate 324 Mg Tablet.) 324 mg PO DAILY [facility] Last Admin: 12/06/21 07:10 Dose: Not Given Documented by: WILL Non-Admin Reason: Patient Refused Vancomycin HCl 500 mg/ Sodium (Chloride) 110 mls @ 110 mls/hr IV Q12H [facility] Last Infusion: 12/07/21 07:53 Dose: 0 mls/hr Documented by: CANDIDA Mirtazapine (Mirtazapine 15 Mg Tablet) 15 mg PO DAILY@1999 [facility] Last Admin: 12/06/21 21:34 Dose: 15 mg Documented by: SHAYNE Multivitamins/Vitamin C (Multivitamin Tablet) 1 tab PO DAILY [facility] Last Admin: 12/06/21 07:08 Dose: 1 tab Documented by: WILL Omeprazole (Omeprazole 20 Mg Capsule.Dr) 20 mg PO DAILY@0630 [facility] Last Admin: 12/07/21 06:51 Dose: 20 mg Documented by: CANDIDA Ondansetron HCl (Ondansetron Hcl 4 Mg/2 Ml Vial) 4 mg IVPUSH Q8H PRN PRN Reason: Nausea and Vomiting Oxycodone HCl (Oxycodone Hcl Immed Release 5 Mg Tablet) 5 mg PO Q4H PRN PRN Reason: Pain, Severe (Pain Scale 7-10) Last Admin: 12/07/21 00:30 Dose: 5 mg Documented by: CANDIDA Pharmacy Consult (Consult Rx Perform Med Rec) 1 each MISCELLANE ONCE PRN PRN Reason: Consult order Pharmacy Consult (Consult Rx Vancomycin Dosing) 1 each MISCELLANE DAILY PRN PRN Reason: Consult order Sodium Chloride (0.9 % Sodium Chloride Flush 3 Ml Syringe) 3 ml IVFLUSH QSHIFT [facility] Last Admin: 12/07/21 07:11 Dose: 3 ml Documented by: CANDIDA Vitamin D (Cholecalciferol (Vitamin D3) 25 Mcg Tablet) 25 mcg PO DAILY [facility] Last Admin: 12/06/21 07:08 Dose: 25 mcg Documented by: WILL Labs CBC & Chem 7: 12/06/21 05:42 12/07/21 05:20 Labs: Laboratory Results - last 24 hr 12/06/21 12/06/21 12/06/21 05:42 05:42 10:15 Estim Creat Clear Calc Estimated GFR POC Glucose C-Reactive Protein 30.16 H Procalcitonin 2.56 COVID-19 (LIBRADO) Negative COVID-19 Clin Com See Note 12/06/21 12/06/21 12/07/21 11:15 15:30 05:20 Estim Creat Clear Calc 69.6 Estimated GFR > 60 POC Glucose 105 80 C-Reactive Protein Procalcitonin COVID-19 (LIBRADO) COVID-19 Clin Com 12/07/21 07:14 Estim Creat Clear Calc Estimated GFR POC Glucose 79 C-Reactive Protein Procalcitonin COVID-19 (LIBRADO) COVID-19 Clin Com Microbiology Microbiology Results: Microbiology 12/06/21 05:42 Blood Culture - Preliminary Blood - Venous Staphylococcus aureus 12/06/21 05:36 Blood Culture - Preliminary Blood - Venous Staphylococcus aureus 12/05/21 18:33 Urine Culture - Preliminary Urine clean catch - Urine estrada top Culture too young to evaluate. Assessment and Plan (1) Closed intertrochanteric fracture of femur: Status: Acute (2) Malnutrition: Status: Acute (3) Failure to thrive in adult: Status: Acute Plan hospital d#7 61yo F s/p IM nailing for L intertrochanteric femur fx 11/16/21,sent in from Orthopedics office with symptomatic anemia/FTT found to be bacteremic # Staph bacteremia - vancomycin d#2, follow speciation/susceptibilities from 12/06 and repeat BCx from today, PICC when cleared, consult ID, TTE. suspect skin source # anemia, normocytic - transfused 1u pRBCs 11/29/21 and Hb now stable - continue iron + B12 repletion PO - TRINA, TERRI, and flow for PNH all normal # hypoglycemia - resolved, likely was due to inadequate PO intake and poor reserve # hypophosphatemia - repleted, resolved. ?refeeding syndrome # stage 3 sacral pressure ulcer - nutritional supplements + wound care # postop IMN L intertrochanteric fx - nathan out, continue VTE ppx 4 wk postop # severe protein/calorie malnutrition # FTT - supplements - psych consult pending- ?eating disorder # anxiety - started on mirtazapine by psychiatry # VTE ppx - LMWH x 4 wk postop # dispo - plan STR, pt prefers [facility], Covid-19 LBIRADO negative, ?[place] coverage- CM working on clarifying this Quality Stroke Does the patient have a stroke diagnosis?: No VTE Prior VTE?: No VTE Risk Level:: Medical - moderate - high VTE Device Contraindication: Treatment Not Indicated VTE Drug Contraindication: N/A - Med Ordered
[2021-12-07] MEDS: Cholecalciferol (Vitamin D3) 25 MCG TABLET PO (09:41)
[2021-12-07] MEDS: Cyanocobalamin (Vitamin B-12) 500 MCG TABLET PO (09:41)
[2021-12-07] MEDS: Multivitamin TABLET 1 TAB PO (09:41)
[2021-12-07 10:44] LABS: Glucose, Whole Blood 139 mg/dL (60-115)
--- NOTE | 2021-12-07 10:47 | HE.PHANOTE ---
Vancomycin Dosing Addendum Creatinine ordered. Continue current vancomycin regimen. Trough 12/08/21 @0500.
[2021-12-07] MEDS: Mirtazapine 7.5 MG TABLET PO (11:07)
[2021-12-07] MEDS: 0.9 % Sodium Chloride 1,000 ML 125 ML IVCONT (11:08)
--- NOTE | 2021-12-07 14:17 | MHC.CLN ---
F/U PT IS MODERATELY MALNOURISHED SEE FULL CLINICAL NUTRITION ASSESSMENT DATE 12/05/21 PO INTAKE 75-100% DIET RX: REGULAR DIET-APPROPRIATE PRIOR TO HIP FRACTURE, PATIENT RUNNING 8 MILES PER DAY. LIKELY ENERGY INTAKE AT THAT TIME NOT MEETING PATIENT'S HIGH ENERGY NEEDS FOR ACTIVITY. CONTINUE TO PROVIDE FOOD PREFERENCES AT MEALS AND ENCOURAGE SNACKS ABLE. PT RECEIVING ENSURE TID AND ABDILE BID TO INCREASE KCALS AND PROMOTE WOUND HEALING PROVIDES 1210KCALS, 65G PROTEIN MONITOR PO INTAKE AND SUPPLEMENT ACCEPTANCE CLOSELY
--- NOTE | 2021-12-07 14:39 | PC.NURSE ---
Patient fall approx 1420, mother at bedside attmepted to help patient out of bed without ringing for assistance. EXPANDING MACHINE OPERATOR and myself sitting at pod directly outside of room and heard patient crash to floor. She was laying left side. reported pain to left hip and groin, she said was quickly subsiding. Armorer Technician to room and doctor notified stat xray ordered.
--- NOTE | 2021-12-07 16:45 | PC.NURSE ---
P patient refuses IV fluids I Dr. Ro notified E encouraged po intake
[2021-12-07] MEDS: LORazepam 0.5 MG TABLET PO (16:50)
[2021-12-07] MEDS: Enoxaparin Sodium 40 MG/0.4 ML SYRINGE SUBCUT (20:07)
[2021-12-07] MEDS: Mirtazapine 15 MG TABLET PO (20:08)
--- NOTE | 2021-12-07 23:35 | P.CNID_ITS ---
History of Present Illness Data of Consult Service Date: 12/07/21 Requesting physician: Sol Ro Primary Care Provider: Unknown Physician HPI Reason for consult: weakness,bacteremia She presents with syncope and weakness for a day. She has bacteremia,gram positive cocci,staph aureus. Review of Systems Review of Systems: Yes all other systems are reviewed and are negative PMFSH Past Medical History Medical History (Updated 12/14/21 @ 14:44 by Julia Milian MD) Anemia Closed intertrochanteric fracture of femur MSSA bacteremia Sacral pressure ulcer Family History Family History Other No family history of coronary artery disease Surgical History Surgical History H/O foot surgery History of hip surgery Social History Social History Household Members: Family Household Members Other:: mother Housing: House Do you presently have visiting nurse or other home services: No Alcohol intake: never Patient Tobacco Use Status: Former Tobacco user Tobacco use type: Cigarette Advance Directives Date on File: 11/16/21 service: Yes Current occupational status: unemployed Meds Allergies Allergy/AdvReac Type Severity Reaction Status Date / Time No Known Allergies Allergy Unverified 11/29/21 11:24 [No Known Allergies*] Active Medications: Current Medications Acetaminophen (Acetaminophen 325 Mg Tablet) 650 mg PO Q6H PRN PRN Reason: Pain, Mild (Pain Scale 1-3) Last Admin: 12/07/21 09:40 Dose: 650 mg Documented by: Cyanocobalamin (Cyanocobalamin (Vitamin B-12) 500 Mcg Tablet) 500 mcg PO DAILY [facility] Last Admin: 12/07/21 09:41 Dose: 500 mcg Documented by: Docusate Sodium (Docusate Sodium 100 Mg Capsule) 100 mg PO DAILY PRN PRN Reason: Constipation Last Admin: 12/05/21 13:43 Dose: 100 mg Documented by: Enoxaparin Sodium (Enoxaparin Sodium 40 Mg/0.4 Ml Syringe) 40 mg SUBCUT Q24H [facility] Last Admin: 12/07/21 20:07 Dose: 40 mg Documented by: Ferrous Sulfate (Ferrous Sulfate 324 Mg Tablet.) 324 mg PO DAILY [facility] Last Admin: 12/07/21 09:58 Dose: Not Given Documented by: Vancomycin HCl 500 mg/ Sodium (Chloride) 110 mls @ 110 mls/hr IV Q12H [facility] Last Infusion: 12/07/21 21:18 Dose: Infused Documented by: Sodium Chloride (Ns) 1,000 mls @ 125 mls/hr IVCONT .Q8H [facility] Stop: 12/08/21 01:44 Last Infusion: 12/07/21 16:51 Dose: 0 mls/hr Documented by: Lorazepam (Lorazepam 0.5 Mg Tablet) 0.5 mg PO Q6H PRN PRN Reason: anxiety/restlessness Last Admin: 12/07/21 16:50 Dose: 0.5 mg Documented by: Mirtazapine (Mirtazapine 15 Mg Tablet) 15 mg PO DAILY@1999 [facility] Last Admin: 12/07/21 20:08 Dose: 15 mg Documented by: Multivitamins/Vitamin C (Multivitamin Tablet) 1 tab PO DAILY [facility] Last Admin: 12/07/21 09:41 Dose: 1 tab Documented by: Omeprazole (Omeprazole 20 Mg Capsule.) 20 mg PO DAILY@0630 [facility] Last Admin: 12/07/21 06:51 Dose: 20 mg Documented by: Ondansetron HCl (Ondansetron Hcl 4 Mg/2 Ml Vial) 4 mg IVPUSH Q8H PRN PRN Reason: Nausea and Vomiting Oxycodone HCl (Oxycodone Hcl Immed Release 5 Mg Tablet) 5 mg PO Q4H PRN PRN Reason: Pain, Severe (Pain Scale 7-10) Last Admin: 12/07/21 21:24 Dose: 5 mg Documented by: Pharmacy Consult (Consult Rx Perform Med Rec) 1 each MISCELLANE ONCE PRN PRN Reason: Consult order Pharmacy Consult (Consult Rx Vancomycin Dosing) 1 each MISCELLANE DAILY PRN PRN Reason: Consult order Sodium Chloride (0.9 % Sodium Chloride Flush 3 Ml Syringe) 3 ml IVFLUSH QSHIFT [facility] Last Admin: 12/07/21 16:50 Dose: 3 ml Documented by: Vitamin D (Cholecalciferol (Vitamin D3) 25 Mcg Tablet) 25 mcg PO DAILY [facility] Last Admin: 12/07/21 09:41 Dose: 25 mcg Documented by: Home Medications Medication Instructions Recorded Confirmed Last Taken Type cholecalciferol (vitamin D3) 25 25 mcg PO DAILY 11/15/21 11/29/21 11/14/21 His tory mcg (1,000 unit) capsule (Vitamin D3) cyanocobalamin (vitamin B-12) 500 500 mcg PO DAILY 11/15/21 11/29/21 11/14/21 History mcg tablet [id number] 8 mg-folic 1 tab PO DAILY 11/15/21 11/29/21 11/14/21 History ac 400 mcg-vit K 10 mcg chew tablet (Centrum Chewables) Physical Exam Vital Signs: Vital Signs: Last Vital Signs Temp 98.8 F 12/07/21 23:16 Pulse 87 12/07/21 23:16 Resp 14 12/07/21 23:16 BP 119/57 L 12/07/21 23:16 Pulse Ox 98 12/07/21 23:16 BMI result Body Mass Index 19.1 Const: Nutritional Appearance: cachectic and underweight Resp: Effort & Inspection: normal respiratory effort Cardio: Rate: regular rate Rhythm: regular rhythm GI: Palpation (GI): Soft to palpation and nontender Extrem: Other: swollen legs Results Labs CBC & Chem 7: 12/18/21 06:15 12/18/21 06:15 Labs: BMP 12/07/21 05:20 Creatinine 0.48 L Microbiology Microbiology Results: Microbiology 12/07/21 05:20 Blood - Venous Blood Culture - Preliminary Prelim: GPC Gram Stain only 12/07/21 05:12 Blood - Venous Blood Culture - Preliminary Prelim: GPC Gram Stain only 12/05/21 18:33 Urine clean catch - Urine estrada top Urine Culture - Preliminary Gram positive cocci 12/06/21 05:42 Blood - Venous Blood Culture - Preliminary Staphylococcus aureus 12/06/21 05:36 Blood - Venous Blood Culture - Preliminary Staphylococcus aureus Assessment and Plan (1) Cachexia: Status: Acute (2) Closed intertrochanteric fracture of femur: Status: Acute Continue Vancomycin Await final blood culture and echo Likely four weeks IV
[2021-12-08] VITALS (7 sets, daily range): BP systolic 99–128; BP diastolic 50–67; PULSE 71–90; RESP 14–20; TEMP 36.2–37.3; O2SAT 96–99
[2021-12-08] MEDS: 0.9 % Sodium Chloride Flush 3 ML SYRINGE IVFLUSH ×3 (00:20→15:26)
[2021-12-08 05:03] LABS: Hematocrit 25.3 % (37.0-47.0); Hemoglobin 7.8 g/dl (12.0-16.0); Mean Corpuscular HGB Conc 30.8 g/dl (31.0-35.0); Mean Corpuscular Hemoglobin 28.9 pg (27.0-33.0); Mean Corpuscular Volume 93.7 fL (80.0-98.0); Mean Platelet Volume 9.4 fL (9.4-12.3); NRBC Pct Auto 0.2 /100WBC (0.0-0.2); Platelet Count 139 X10*3/uL (160-400); Red Cell Distribution Width 22.6 % (11.0-16.0); White Blood Count 10.1 X10*3/uL (4.8-10.8)
[2021-12-08 05:20] LABS: Alanine Aminotransferase 51 U/L (0-31); Albumin Level 1.8 g/dL (3.5-5.0); Alkaline Phosphatase 201 U/L (39-117); Anion Gap 11 (12-20); Aspartate Amino Transferase 22 U/L (5-31); Blood Urea Nitrogen 24 mg/dL (9-16); C Reactive Protein 20.75 mg/dL (< or = 0.50); Calcium 7.3 mg/dL (8.4-10.2); Carbon Dioxide 26 mmol/L (22-29); Chloride 106 mmol/L (96-108); Creatinine Clr Calc Pharmacy 64.3; Estimated Glomerular Filt Rate > 60; Glucose Random 68 mg/dL (60-115); Potassium 4.2 mmol/L (3.3-5.1); Sodium 139 mmol/L (135-145); Total Protein 3.8 g/dL (6.5-8.0)
[2021-12-08 05:23] LABS: Vancomycin Trough 10.2 mcg/mL (10.0-20.0)
[2021-12-08 05:36] LABS: Procalcitonin 1.98 ng/mL
[2021-12-08] MEDS: Omeprazole 20 MG CAPSULE.DR PO (06:02)
--- NOTE | 2021-12-08 07:16 | HE.PHANOTE ---
BASED ON VANCO LEVEL OF 10.2 DOSE ADJUSTED TO 1250Q 24. NEXT TROUGH 12/10 @ 0600
[2021-12-08 07:24] LABS: Glucose, Whole Blood 67 mg/dL (60-115)
[2021-12-08] MEDS: vancomycin HCL 1,250 MG in 0.9 % Sodium Chloride 250 ML 166.67 MG IV (07:54)
[2021-12-08] MEDS: oxyCODONE HCl Immed Release 5 MG TABLET PO ×4 (07:55→20:52)
[2021-12-08] MEDS: Cyanocobalamin (Vitamin B-12) 500 MCG TABLET PO (07:55)
[2021-12-08] MEDS: Cholecalciferol (Vitamin D3) 25 MCG TABLET PO (07:55)
[2021-12-08] MEDS: Multivitamin TABLET 1 TAB PO (07:56)
--- NOTE | 2021-12-08 09:00 | P.CDIC_ITS ---
CDI Concurrent Query Documentation Clarification: PHYSICIAN'S DOCUMENTATION REQUEST Date of Query: 12/08/21 09 Patient Name: Karen Long Admit Date: 12/01/21 Dear Doctor, A review of the medical record indicates additional documentation may be needed. Please review below and update the documentation accordingly. Treating, rule out, resolved etc. Risk Factors/Clinical Indicators/Treatments PN 3 - Assessment/plan - fever, likely UTI Ceftin ordered, Temp 101.2 yesterday afternoon. Please clarify the following: Urinary tract infection * [Diagnosis] was present on admission and is now resolved * [Diagnosis] was present on admission and is still being monitored, evaluated, or treated * [Diagnosis] was ruled out * [Diagnosis] is still a likely, suspected, probable diagnosis * Other (please specify) * Unable to determine Use of terms such as suspected, likely, concern for, or probable (associated with a specific diagnosis that is being evaluated, monitored, or treated as if it exists) are acceptable and can be coded in the inpatient setting, when documented at the time of discharge. Thank you, Nannette Duong CCS, CDIS Extension: [phone] Please use your independent medical judgment in providing your response. THIS QUERY IS PART OF THE PERMANENT MEDICAL RECORD Provider Response: Other Other Diagnosis: NOt a UTI. Bacteremia c
--- NOTE | 2021-12-08 09:04 | PM.EVENT ---
Event Note Date of Service: 12/08/21 Event Note: Miss Long is approximately 7 weeks status post left hip IM nail. She continues to work with physical therapy. States she fell yesterday. X-rays were obtained which are negative for any new fractures. IM nail is in good position without any migration. Plan is for rehab placement which is pending. Patient should follow-up in our office in 4 weeks for routine follow-up.
[2021-12-08 11:44] LABS: Glucose, Whole Blood 83 mg/dL (60-115)
[2021-12-08] MEDS: Acetaminophen 325 MG TABLET 650 MG PO (12:03)
--- NOTE | 2021-12-08 12:18 | PC.NURSE ---
Skin/wound assessment completed. Patient has a skin tear to right upper arm, and 2 to the right lower arm, 2 skin tears to right lower leg and 1 to left upper lower leg- Xeroform applied to all skin tears covered with gauze and roll gauze. Wyatt wrap applied to bilateral legs to reduce edema. Patient has a large skin tear to left hip which is covered with Xeroform and large Tegaderm. Patient also has a stage 3 to sacrum- Santyl applied covered with foam dressing. Also has bruising to spine and left hip from fall on 12/07/2021.
--- NOTE | 2021-12-08 13:40 | P.PNIM_ITS ---
Subjective Subjective Date of Service: 12/08/21 Interval History: Afebrile Fell on L hip yesterday Pain controlled Review of Systems Review of Systems: Yes all other systems are reviewed and are negative Physical Exam Vital Signs: Vital Signs: Last Vital Signs Temp 97.2 F 12/08/21 11:21 Pulse 90 12/08/21 11:21 Resp 18 12/08/21 11:21 BP 104/64 12/08/21 11:21 Pulse Ox 99 12/08/21 11:21 BMI result Body Mass Index 19.1 Gen: in no acute distress, cachectic HEENT: sclera anicteric, moist/pale mucus membranes Neck: supple Lungs: clear to auscultation bilaterally Heart: regular rate and rhythm, no murmurs Abd: soft, non-tender, non-distended Ext: no edema Skin: warm/well-perfused, hip incision without erythema/purulence Neuro: alert and oriented x3, no focal findings Psych: appropriate affect Objective Data Active Medications Acetaminophen (Acetaminophen 325 Mg Tablet) 650 mg PO Q6H PRN PRN Reason: Pain, Mild (Pain Scale 1-3) Last Admin: 12/08/21 12:03 Dose: 650 mg Documented by: TONG Collagenase (Collagenase Clostridium Hist. 30 Gm Tube) 1 appl TOPICAL DAILY [facility]; Protocol Cyanocobalamin (Cyanocobalamin (Vitamin B-12) 500 Mcg Tablet) 500 mcg PO DAILY [facility] Last Admin: 12/08/21 07:55 Dose: 500 mcg Documented by: TONG Docusate Sodium (Docusate Sodium 100 Mg Capsule) 100 mg PO DAILY PRN PRN Reason: Constipation Last Admin: 12/05/21 13:43 Dose: 100 mg Documented by: JOSE Enoxaparin Sodium (Enoxaparin Sodium 40 Mg/0.4 Ml Syringe) 40 mg SUBCUT Q24H [facility] Last Admin: 12/07/21 20:07 Dose: 40 mg Documented by: UMA Ferrous Sulfate (Ferrous Sulfate 324 Mg Tablet.) 324 mg PO DAILY [facility] Last Admin: 12/08/21 07:56 Dose: Not Given Documented by: TONG Non-Admin Reason: Patient Refused Cefazolin Sodium/Dextrose (Ancef) 2 gm in 50 mls @ 100 mls/hr IV Q8H [facility] Lorazepam (Lorazepam 0.5 Mg Tablet) 0.5 mg PO Q6H PRN PRN Reason: anxiety/restlessness Last Admin: 12/07/21 16:50 Dose: 0.5 mg Documented by: UMA Mirtazapine (Mirtazapine 15 Mg Tablet) 15 mg PO DAILY@1999 [facility] Last Admin: 12/07/21 20:08 Dose: 15 mg Documented by: UMA Multivitamins/Vitamin C (Multivitamin Tablet) 1 tab PO DAILY [facility] Last Admin: 12/08/21 07:56 Dose: 1 tab Documented by: TONG Omeprazole (Omeprazole 20 Mg Capsule.Dr) 20 mg PO DAILY@629 [facility] Last Admin: 12/08/21 06:02 Dose: 20 mg Documented by: SULMA Ondansetron HCl (Ondansetron Hcl 4 Mg/2 Ml Vial) 4 mg IVPUSH Q8H PRN PRN Reason: Nausea and Vomiting Oxycodone HCl (Oxycodone Hcl Immed Release 5 Mg Tablet) 5 mg PO Q4H PRN PRN Reason: Pain, Severe (Pain Scale 7-10) Last Admin: 12/08/21 12:03 Dose: 5 mg Documented by: TONG Pharmacy Consult (Consult Rx Perform Med Rec) 1 each MISCELLANE ONCE PRN PRN Reason: Consult order Pharmacy Consult (Consult Rx Vancomycin Dosing) 1 each MISCELLANE DAILY PRN PRN Reason: Consult order Sodium Chloride (0.9 % Sodium Chloride Flush 3 Ml Syringe) 3 ml IVFLUSH QSNJFT [facility] Last Admin: 12/08/21 07:54 Dose: 3 ml Documented by: TONG Vitamin D (Cholecalciferol (Vitamin D3) 25 Mcg Tablet) 25 mcg PO DAILY [facility] Last Admin: 12/08/21 07:55 Dose: 25 mcg Documented by: TONG Labs CBC & Chem 7: 12/08/21 04:54 12/08/21 04:54 Labs: Laboratory Results - last 24 hr 12/08/21 12/08/21 12/08/21 04:54 04:54 04:54 MCV 93.7 MCH 28.9 MCHC 30.8 L RDW 22.6 H Plt Count 139 L D MPV 9.4 Absolute Nucleated RBC 0.020 H Nucleated RBC % (auto) 0.2 Anion Gap 11 L Estim Creat Clear Calc 64.3 Estimated GFR > 60 POC Glucose Random Glucose 68 Calcium 7.3 L Total Bilirubin 1.0 AST 22 D ALT 51 H Alkaline Phosphatase 201 H D C-Reactive Protein 20.75 H Total Protein 3.8 L Albumin 1.8 L Procalcitonin 1.98 Vancomycin Trough 12/08/21 12/08/21 12/08/21 04:54 07:13 11:22 MCV MCH MCHC RDW Plt Count MPV Absolute Nucleated RBC Nucleated RBC % (auto) Anion Gap Estim Creat Clear Calc Estimated GFR POC Glucose 67 83 Random Glucose Calcium Total Bilirubin AST ALT Alkaline Phosphatase C-Reactive Protein Total Protein Albumin Procalcitonin Vancomycin Trough 10.2 Microbiology 12/05/21 18:33 Urine clean catch - Urine estrada top Urine Culture - Preliminary Gram positive cocci 12/07/21 05:20 Blood - Venous Blood Culture - Final Staphylococcus aureus 12/07/21 05:12 Blood - Venous Blood Culture - Final Staphylococcus aureus 12/06/21 05:42 Blood - Venous Blood Culture - Final Staphylococcus aureus 12/06/21 05:36 Blood - Venous Blood Culture - Final Staphylococcus aureus Microbiology Microbiology Results: Microbiology 12/05/21 18:33 Urine Culture - Preliminary Urine clean catch - Urine estrada top Gram positive cocci 12/07/21 05:20 Blood Culture - Final Blood - Venous Staphylococcus aureus 12/07/21 05:12 Blood Culture - Final Blood - Venous Staphylococcus aureus 12/06/21 05:42 Blood Culture - Final Blood - Venous Staphylococcus aureus 12/06/21 05:36 Blood Culture - Final Blood - Venous Staphylococcus aureus Assessment and Plan (1) Closed intertrochanteric fracture of femur: Status: Acute (2) Malnutrition: Status: Acute (3) Failure to thrive in adult: Status: Acute Plan hospital d#8 61yo F s/p IM nailing for L intertrochanteric femur fx 11/16/21,sent in from Orthopedics office with symptomatic anemia/FTT found to be bacteremic # MSSA bacteremia - change vancomycin to cefazolin d#1, total likely 28d, PICC when BCx [still positive from 12/07, redraw 12/09], ID following, TTE pending. suspect skin source # anemia, normocytic - transfused 1u pRBCs 11/29/21 and Hb now stable - continue iron + B12 repletion PO - TRINA, TERRI, and flow for PNH all normal # hypoglycemia - resolved, likely was due to inadequate PO intake and poor reserve # hypophosphatemia - repleted, resolved. ?refeeding syndrome # stage 3 sacral pressure ulcer - nutritional supplements + wound care [Triad cream then cover with foam] # postop IMN L intertrochanteric fx - nathan out, continue VTE ppx 4 wk postop # severe protein/calorie malnutrition # FTT - supplements - psych consult pending- ?eating disorder # anxiety - started on mirtazapine by psychiatry # VTE ppx - LMWH x 4 wk postop # dispo - plan STR, pt prefers [facility], Covid-19 LIBRADO negative, ?[facility] [place]- CM working on clarifying this Quality Stroke Does the patient have a stroke diagnosis?: No VTE Prior VTE?: No VTE Risk Level:: Medical - moderate - high VTE Device Contraindication: Treatment Not Indicated VTE Drug Contraindication: N/A - Med Ordered
--- NOTE | 2021-12-08 14:09 | MHC.CM.PN ---
EMR REVIEWED, THIS CM RECEIVED A CALL FROM [facility] [place] [facility] CON[facility]CT, PER [facility]MEN PT IN FACT IS ONLY COVERED 20% [facility]OUGH [facility], RENAN DID REPORT PT WAS RECENTLY APPROVED FOR SOCIAL SECURITY AND SHOULD HAVE MEDICARE A BUT WILL ALSO NEED TO BE SET UP W/[employer], CM WAS ABLE TO CONTACT NISA THIS AFTERNOON WHILE WITH PT SHE HAS NOT BELIEVED CM REGARDING HER INSURANCE ISSUES, AFTER DISCUSSING W/NISA AND PT, PT AGREEABLE TO AND CM FAXED REFERRAL TO [facility], PER [facility] PT IS HOOD FOR MH STARTING ON 11/29/21, [facility] WILL CONTACT CM ONCE ID # IS AVAILABLE. SNF REFERRAL UPDATED AND RESENT W/INCREASE TO LOCAL FACILITIES PER PT REQUEST, PT DOES REPORT HER PREFFERED FACILITY IS [facility].
[2021-12-08] MEDS: ceFAZolin Sodium/Dextrose,Iso 2 GM/50 ML PIGGYBACK IV ×2 (14:35→20:52)
[2021-12-08 16:17] LABS: Glucose, Whole Blood 170 mg/dL (60-115)
[2021-12-08 19:48] LABS: Glucose, Whole Blood 169 mg/dL (60-115)
[2021-12-08] MEDS: Mirtazapine 15 MG TABLET PO (20:52)
[2021-12-08] MEDS: Enoxaparin Sodium 40 MG/0.4 ML SYRINGE SUBCUT (20:53)
[2021-12-09] VITALS (7 sets, daily range): BP systolic 107–120; BP diastolic 57–71; PULSE 70–82; RESP 16–20; TEMP 36.3–37; O2SAT 95–100
[2021-12-09] MEDS: 0.9 % Sodium Chloride Flush 3 ML SYRINGE IVFLUSH ×3 (00:22→19:51)
[2021-12-09] MEDS: Omeprazole 20 MG CAPSULE.DR PO (06:13)
[2021-12-09] MEDS: ceFAZolin Sodium/Dextrose,Iso 2 GM/50 ML PIGGYBACK IV ×3 (06:14→21:31)
[2021-12-09 07:19] LABS: Glucose, Whole Blood 98 mg/dL (60-115)
[2021-12-09] MEDS: Cyanocobalamin (Vitamin B-12) 500 MCG TABLET PO (09:09)
[2021-12-09] MEDS: Cholecalciferol (Vitamin D3) 25 MCG TABLET PO (09:09)
[2021-12-09] MEDS: Collagenase Clostridium Hist. 30 GM TUBE 1 APPL TOPICAL (09:09)
[2021-12-09] MEDS: oxyCODONE HCl Immed Release 5 MG TABLET PO ×3 (09:09→19:50)
[2021-12-09] MEDS: Ferrous Sulfate 324 MG TABLET.DR PO (09:09)
[2021-12-09] MEDS: Multivitamin TABLET 1 TAB PO (09:09)
[2021-12-09] MEDS: LORazepam 0.5 MG TABLET PO ×2 (09:14→19:50)
--- NOTE | 2021-12-09 10:27 | P.PNIM_ITS ---
Subjective Subjective Date of Service: 12/09/21 Interval History: Left back and hip discomfort wants to know about discharge plan, offers no other symptoms of fever chills, no nausea, no vomiting, tolerating diet Review of Systems Review of Systems: Yes all other systems are reviewed and are negative Physical Exam Vital Signs: Vital Signs: Last Vital Signs Temp 97.5 F 12/09/21 06:55 Pulse 76 12/09/21 09:02 Resp 18 12/09/21 06:55 BP 110/57 L 12/09/21 09:02 Pulse Ox 95 12/09/21 09:02 BMI result Body Mass Index 19.1 Const: Other: Gen: Awake alert, no acute distress, cachectic Neck: s upple no JVD Lungs : clear to auscult ation bilaterally Heart: regular rat e and rhythm, no m urmurs Abd: soft, non-tender, non-di stended Ext: no ed sneha Skin: warm/wel l-perfused, hip in cision without steve thema/purulence Mu ltiple bruises lef t buttock Neuro: a lert and oriented x3, no focal findi ngs Psych: appropr iate affect Objective Data Active Medications Acetaminophen (Acetaminophen 325 Mg Tablet) 650 mg PO Q6H PRN PRN Reason: Pain, Mild (Pain Scale 1-3) Last Admin: 12/08/21 12:03 Dose: 650 mg Documented by: TONG Collagenase (Collagenase Clostridium Hist. 30 Gm Tube) 1 appl TOPICAL DAILY [facility]; Protocol Last Admin: 12/09/21 09:09 Dose: 1 appl Documented by: PEDRO LUIS Cyanocobalamin (Cyanocobalamin (Vitamin B-12) 500 Mcg Tablet) 500 mcg PO DAILY [facility] Last Admin: 12/09/21 09:09 Dose: 500 mcg Documented by: PEDRO LUIS Docusate Sodium (Docusate Sodium 100 Mg Capsule) 100 mg PO DAILY PRN PRN Reason: Constipation Last Admin: 12/05/21 13:43 Dose: 100 mg Documented by: JOSE Enoxaparin Sodium (Enoxaparin Sodium 40 Mg/0.4 Ml Syringe) 40 mg SUBCUT Q24H [facility] Last Admin: 12/08/21 20:53 Dose: 40 mg Documented by: UMA Ferrous Sulfate (Ferrous Sulfate 324 Mg Tablet.) 324 mg PO DAILY [facility] Last Admin: 12/09/21 09:09 Dose: 324 mg Documented by: PEDRO LUIS Cefazolin Sodium/Dextrose (Ancef) 2 gm in 50 mls @ 100 mls/hr IV Q8H [facility] Last Infusion: 12/09/21 06:49 Dose: 0 mls/hr Documented by: CANDIDA Lorazepam (Lorazepam 0.5 Mg Tablet) 0.5 mg PO Q6H PRN PRN Reason: anxiety/restlessness Last Admin: 12/09/21 09:14 Dose: 0.5 mg Documented by: PEDRO LUIS Mirtazapine (Mirtazapine 15 Mg Tablet) 15 mg PO DAILY@1999 [facility] Last Admin: 12/08/21 20:52 Dose: 15 mg Documented by: UMA Multivitamins/Vitamin C (Multivitamin Tablet) 1 tab PO DAILY [facility] Last Admin: 12/09/21 09:09 Dose: 1 tab Documented by: PEDRO LUIS Omeprazole (Omeprazole 20 Mg Pal.) 20 mg PO DAILY@06 [facility] Last Admin: 12/09/21 06:13 Dose: 20 mg Documented by: CANDIDA Ondansetron HCl (Ondansetron Hcl 4 Mg/2 Ml Vial) 4 mg IVPUSH Q8H PRN PRN Reason: Nausea and Vomiting Oxycodone HCl (Oxycodone Hcl Immed Release 5 Mg Tablet) 5 mg PO Q4H PRN PRN Reason: Pain, Severe (Pain Scale 7-10) Last Admin: 12/09/21 09:09 Dose: 5 mg Documented by: PEDRO LUIS Pharmacy Consult (Consult Rx Perform Med Rec) 1 each MISCELLANE ONCE PRN PRN Reason: Consult order Pharmacy Consult (Consult Rx Vancomycin Dosing) 1 each MISCELLANE DAILY PRN PRN Reason: Consult order Sodium Chloride (0.9 % Sodium Chloride Flush 3 Ml Syringe) 3 ml IVFLUSH QSHIFT [facility] Last Admin: 12/09/21 09:09 Dose: 3 ml Documented by: PEDRO LUIS Vitamin D (Cholecalciferol (Vitamin D3) 25 Mcg Tablet) 25 mcg PO DAILY [facility] Last Admin: 12/09/21 09:09 Dose: 25 mcg Documented by: PEDRO LUIS Labs CBC & Chem 7: 12/08/21 04:54 12/08/21 04:54 Labs: Laboratory Results - last 24 hr 12/08/21 12/08/21 12/08/21 11:22 16:02 19:31 POC Glucose 83 170 H 169 H 12/09/21 06:59 POC Glucose 98 Microbiology Microbiology Results: Microbiology 12/05/21 18:33 Urine Culture - Final Urine clean catch - Urine estrada top Aerococcus viridans 12/07/21 05:20 Blood Culture - Final Blood - Venous Staphylococcus aureus 12/07/21 05:12 Blood Culture - Final Blood - Venous Staphylococcus aureus 12/06/21 05:42 Blood Culture - Final Blood - Venous Staphylococcus aureus 12/06/21 05:36 Blood Culture - Final Blood - Venous Staphylococcus aureus Assessment and Plan (1) Closed intertrochanteric fracture of femur: Status: Acute (2) Malnutrition: Status: Acute (3) Failure to thrive in adult: Status: Acute Plan hospital d#8 61yo F s/p IM nailing for L intertrochanteric femur fx 11/16/21,sent in from Orthopedics office with symptomatic anemia/FTT found to be bacteremic # MSSA bacteremia - status post vancomycin now on cefazolin d#12/05 repeat BCx from December 09 pending [still positive from 12/07], repeat limited echo showed no vegetation, suspect skin source being followed by ID will order PICC line once blood cultures negative # anemia, normocytic - status post 1u pRBCs 11/29/21 , post transfusion hemoglobin remains stable will continue iron and B12 replacement - TRINA, TERRI, and flow for PNH all normal # hypoglycemia - resolved, stable blood sugar this a.m., hypoglycemia likely was due to inadequate PO intake and poor reserve. # hypophosphatemia - repleted, resolved. # stage 3 sacral pressure ulcer - continue nutritional supplements, triad cream frequent position change # postop IMN L intertrochanteric fx - continue VTE ppx 4 wk postop, incision clean, continue oxycodone for pain control # severe protein/calorie malnutrition/# FTT - continue protein supplements - psych consult pending- ?eating disorder # anxiety - on mirtazapine started by psychiatry # VTE ppx - LMWH x 4 wk postop # dispo - plan STR, family caseworker working for placement , does not have good VA coverage. Need continued inpatient care for IV antibiotics and persistent positive blood cultures. Quality Stroke Does the patient have a stroke diagnosis?: No VTE Prior VTE?: No VTE Risk Level:: Medical - moderate - high VTE Device Contraindication: Treatment Not Indicated VTE Drug Contraindication: N/A - Med Ordered
[2021-12-09 11:47] LABS: Glucose, Whole Blood 62 mg/dL (60-115)
--- NOTE | 2021-12-09 13:06 | MHC.CM.PN ---
Addendum entered by Ade Hennessy RN 12/09/21 15:11: CM AWAITING UPDATE ON PT'S [facility] HEALTH EV. Original Note: EMR REVIEWED, PT'S 2ND SET OF BC'S POSITIVE, 3RD SET DRAWN EARLY THIS MORNING, PICC LINE WILL BE PLACED ONCE CULTURES ARE NEG FOR [facility] IV ABX. CM WILL FOLLOW UP W/FS REGARDING MH EV.
--- NOTE | 2021-12-09 13:46 | MHC.CLN ---
F/U PT IS MODERATELY MALNOURISHED SEE FULL CLINICAL NUTRITION ASSESSMENT DATE 12/05/21 PO INTAKE 50-100% (12/07-12/09) DIET RX: REGULAR DIET-APPROPRIATE PT RECEIVING ENSURE TID AND ABDIEL BID TO INCREASE KCALS AND PROMOTE WOUND HEALING PROVIDES 1210KCALS, 65G PROTEIN MONITOR PO INTAKE AND SUPPLEMENT ACCEPTANCE CLOSELY
[2021-12-09] MEDS: Mirtazapine 15 MG TABLET PO (19:49)
[2021-12-09] MEDS: Enoxaparin Sodium 40 MG/0.4 ML SYRINGE SUBCUT (19:51)
[2021-12-10] MEDS: oxyCODONE HCl Immed Release 5 MG TABLET PO ×3 (02:15→19:52)
[2021-12-10 03:32] VITALS: BP 106/54; PULSE 78; RESP 16; TEMP 36.5; O2SAT 97
[2021-12-10] MEDS: ceFAZolin Sodium/Dextrose,Iso 2 GM/50 ML PIGGYBACK IV ×3 (05:27→20:51)
[2021-12-10] MEDS: Omeprazole 20 MG CAPSULE.DR PO (05:27)
[2021-12-10 07:51] VITALS: BP 120/59; PULSE 70; RESP 16; TEMP 37.2; O2SAT 100
[2021-12-10] MEDS: Ferrous Sulfate 324 MG TABLET.DR PO (09:19)
[2021-12-10] MEDS: Cholecalciferol (Vitamin D3) 25 MCG TABLET PO (09:19)
[2021-12-10] MEDS: Cyanocobalamin (Vitamin B-12) 500 MCG TABLET PO (09:19)
[2021-12-10] MEDS: Multivitamin TABLET 1 TAB PO (09:20)
[2021-12-10] MEDS: 0.9 % Sodium Chloride Flush 3 ML SYRINGE IVFLUSH ×3 (09:25→20:51)
--- NOTE | 2021-12-10 11:13 | P.PNIM_ITS ---
Subjective Subjective Date of Service: 12/10/21 Interval History: Awake alert eating breakfast, complaining of pain lower back at site pressure ulcer, also multiple complaints about food, denies fever chills no nausea, no vomiting, eating better, no acute issues overnight. Review of Systems Review of Systems: Yes all other systems are reviewed and are negative Physical Exam Vital Signs: Vital Signs: Last Vital Signs Temp 99.0 F 12/10/21 07:51 Pulse 70 12/10/21 07:51 Resp 16 12/10/21 07:51 BP 120/59 L 12/10/21 07:51 Pulse Ox 100 12/10/21 07:51 BMI result Body Mass Index 19.1 Const: Other: Gen: in no acute distress, cachectic Neck: supple Lungs: clear to auscultation bilaterally Heart: regular rate and rhythm, no murmurs Abd: soft, non-tender, non-distended Ext: no edema Skin: warm/well-perfused, hip incision with no redness or fluctuance, multiple bruises left hip Neuro: alert and oriented x3, no focal findings Psych: appropriate affect Objective Data Active Medications Acetaminophen (Acetaminophen 325 Mg Tablet) 650 mg PO Q6H PRN PRN Reason: Pain, Mild (Pain Scale 1-3) Last Admin: 12/08/21 12:03 Dose: 650 mg Documented by: TONG Collagenase (Collagenase Clostridium Hist. 30 Gm Tube) 1 appl TOPICAL DAILY [facility]; Protocol Last Admin: 12/09/21 09:09 Dose: 1 appl Documented by: COTJURGEN Cyanocobalamin (Cyanocobalamin (Vitamin B-12) 500 Mcg Tablet) 500 mcg PO DAILY [facility] Last Admin: 12/10/21 09:19 Dose: 500 mcg Documented by: COLPERCY Docusate Sodium (Docusate Sodium 100 Mg Capsule) 100 mg PO DAILY PRN PRN Reason: Constipation Last Admin: 12/05/21 13:43 Dose: 100 mg Documented by: JOSE Enoxaparin Sodium (Enoxaparin Sodium 40 Mg/0.4 Ml Syringe) 40 mg SUBCUT Q24H [facility] Last Admin: 12/09/21 19:51 Dose: 40 mg Documented by: OSIRIS Ferrous Sulfate (Ferrous Sulfate 324 Mg Tablet.) 324 mg PO DAILY [facility] Last Admin: 12/10/21 09:19 Dose: 324 mg Documented by: MARY ANN Cefazolin Sodium/Dextrose (Ancef) 2 gm in 50 mls @ 100 mls/hr IV Q8H [facility] Last Infusion: 12/10/21 06:41 Dose: 0 mls/hr Documented by: OSIRIS Lorazepam (Lorazepam 0.5 Mg Tablet) 0.5 mg PO Q6H PRN PRN Reason: anxiety/restlessness Last Admin: 12/09/21 19:50 Dose: 0.5 mg Documented by: OSIRIS Mirtazapine (Mirtazapine 15 Mg Tablet) 15 mg PO DAILY@1999 [facility] Last Admin: 12/09/21 19:49 Dose: 15 mg Documented by: OSIRIS Multivitamins/Vitamin C (Multivitamin Tablet) 1 tab PO DAILY [facility] Last Admin: 12/10/21 09:20 Dose: 1 tab Documented by: MARY ANN Omeprazole (Omeprazole 20 Mg Capsule.Dr) 20 mg PO DAILY@06 [facility] Last Admin: 12/10/21 05:27 Dose: 20 mg Documented by: OSIRIS Ondansetron HCl (Ondansetron Hcl 4 Mg/2 Ml Vial) 4 mg IVPUSH Q8H PRN PRN Reason: Nausea and Vomiting Oxycodone HCl (Oxycodone Hcl Immed Release 5 Mg Tablet) 5 mg PO Q6H PRN PRN Reason: Breakthrough Pain Last Admin: 12/10/21 08:49 Dose: 5 mg Documented by: PRABHJOT Pharmacy Consult (Consult Rx Perform Med Rec) 1 each MISCELLANE ONCE PRN PRN Reason: Consult order Pharmacy Consult (Consult Rx Vancomycin Dosing) 1 each MISCELLANE DAILY PRN PRN Reason: Consult order Sodium Chloride (0.9 % Sodium Chloride Flush 3 Ml Syringe) 3 ml IVFLUSH QSHIFT [facility] Last Admin: 12/10/21 09:25 Dose: 3 ml Documented by: MARY ANN Vitamin D (Cholecalciferol (Vitamin D3) 25 Mcg Tablet) 25 mcg PO DAILY [facility] Last Admin: 12/10/21 09:19 Dose: 25 mcg Documented by: MARY ANN Labs CBC & Chem 7: 12/08/21 04:54 12/08/21 04:54 Labs: Laboratory Results - last 24 hr 12/09/21 11:33 POC Glucose 62 Microbiology Microbiology Results: Microbiology 12/09/21 05:20 Blood Culture - Preliminary Blood - Venous Prelim: GPC Gram Stain only 12/09/21 05:30 Blood Culture - Preliminary Blood - Venous No growth after 24 hours. 12/05/21 18:33 Urine Culture - Final Urine clean catch - Urine estrada top Aerococcus viridans Assessment and Plan (1) Closed intertrochanteric fracture of femur: Status: Acute (2) Malnutrition: Status: Acute (3) Failure to thrive in adult: Status: Acute Plan hospital d#8 61yo F s/p IM nailing for L intertrochanteric femur fx 11/16/21,sent in from Orthopedics office with symptomatic anemia/FTT found to be bacteremic # MSSA bacteremia - status post vancomycin x 48 h, now on cefazolin d#01/02 repeat BCx from December 0910/09 positive for gram-positive cocci,repeat limited echo showed no vegetation, likely source Skin, seen by Ortho left hip incision site clean Will continue current antibiotic will discuss further antibiotic choice and workup with ID , will repeat blood cultures, hold PICC line placement follow clinical course # anemia, normocytic - status post 1u pRBCs 11/29/21 , post transfusion hemoglobin remains stable will continue iron and B12 replacement - TRINA, TERRI, and flow for PNH all normal # hypoglycemia - resolved, was likely was due to inadequate PO intake and poor reserve, blood sugar improved due to better by mouth intake # hypophosphatemia - repleted, resolved. # stage 3 sacral pressure ulcer - continue nutritional supplements, triad cream frequent position change # postop IMN L intertrochanteric fx on 11/16/21 - continue VTE ppx 4 wk postop, incision clean, continue oxycodone for pain control, post fall x-rays 12/07 were obtained which are negative for new fractures, IM nail is in good position without migration ortho recommended 4 week follow-up in the office # severe protein/calorie malnutrition/# FTT - continue protein supplements - psych consult pending- ?eating disorder # anxiety - on mirtazapine started by psychiatry # VTE ppx - LMWH x 4 wk postop # dispo - plan STR, human services case manager working for placement , does not have good VA coverage. Need continued inpatient care for persistent MSSA bacteremia requiring IV antibiotics and further testing, unable to place PICC line due to persistent positive blood culture. Quality Stroke Does the patient have a stroke diagnosis?: No VTE Prior VTE?: No VTE Risk Level:: Medical - moderate - high VTE Device Contraindication: Treatment Not Indicated VTE Drug Contraindication: N/A - Med Ordered
[2021-12-10 11:34] VITALS: BP 120/56; PULSE 70; RESP 16; TEMP 36.1; O2SAT 97
[2021-12-10] MEDS: Collagenase Clostridium Hist. 30 GM TUBE 1 APPL TOPICAL (12:12)
[2021-12-10] MEDS: polyethylene glycoL 3350 17 GM POWD.PACK PO (14:35)
--- NOTE | 2021-12-10 14:53 | PM.IDPN ---
Subjective Subjective Date of Service: 12/10/21 Critical Care Time (minutes): 15 Comment: she has pain pelvic area,on surface Objective Data Labs CBC & Chem 7: 12/18/21 06:15 12/18/21 06:15 Microbiology Microbiology Results: Microbiology 12/09/21 05:20 Blood - Venous Blood Culture - Preliminary Prelim: GPC Gram Stain only 12/09/21 05:30 Blood - Venous Blood Culture - Preliminary No growth after 24 hours. 12/05/21 18:33 Urine clean catch - Urine estrada top Urine Culture - Final Aerococcus viridans 12/07/21 05:20 Blood - Venous Blood Culture - Final Staphylococcus aureus 12/07/21 05:12 Blood - Venous Blood Culture - Final Staphylococcus aureus 12/06/21 05:42 Blood - Venous Blood Culture - Final Staphylococcus aureus 12/06/21 05:36 Blood - Venous Blood Culture - Final Staphylococcus aureus Physical Exam Vital Signs: Vital Signs: Last Vital Signs Temp 97.0 F 12/10/21 11:34 Pulse 70 12/10/21 11:34 Resp 16 12/10/21 11:34 BP 120/56 L 12/10/21 11:34 Pulse Ox 97 12/10/21 11:34 BMI result Body Mass Index 19.1 Const: General: cooperative Eyes: General: appearance normal, both eyes and all related structures Resp: Effort & Inspection: normal respiratory effort Cardio: Rate: regular rate Rhythm: regular rhythm GI: Palpation (GI): Soft to palpation and not firm Back/Spine/Pelvis: Other: discomfort bruised areas pelvis Assessment and Plan Assessment and plan (1) Closed intertrochanteric fracture of femur: Status: Acute (2) Failure to thrive in adult: Status: Acute (3) Generalized weakness: Status: Acute (4) Sacral pressure ulcer: Status: Acute (5) MSSA bacteremia: Problem details: PSSA bacteremia ,still present There is concern over skin/leg source Status: Acute Assessment and Plan: Continue Kefzol Check CT scan pelvis if patient agrees (thinking about) Needs PICC line when clears (complaining about limited access) Time Spent With Patient Time: Total time spent is greater than 50% in coordination of care (as documented) at patient's floor/unit and/or counseling patient: Time with patient: 15 - 24 minutes
[2021-12-10 15:18] VITALS: BP 126/57; PULSE 78; RESP 17; TEMP 37.5; O2SAT 100
--- NOTE | 2021-12-10 15:21 | PC.NURSE ---
Sent picture of patients blue toes to Dr Sellers, informed her patient mom states is new problem, also reported absence of Palpable DP pulse in that foot. Patient is not c/o foot pain but has c/o generalized pain everywhere. States she will report to Dr Rosa and vascular surgeon.
[2021-12-10 19:33] VITALS: BP 123/59; PULSE 84; RESP 17; TEMP 36.3; O2SAT 100
[2021-12-10] MEDS: Acetaminophen 325 MG TABLET 650 MG PO (19:51)
[2021-12-10] MEDS: Enoxaparin Sodium 40 MG/0.4 ML SYRINGE SUBCUT (20:50)
[2021-12-10] MEDS: Mirtazapine 15 MG TABLET PO (20:50)
[2021-12-10] MEDS: LORazepam 0.5 MG TABLET PO (20:51)
[2021-12-10 23:40] VITALS: BP 111/63; PULSE 76; RESP 17; TEMP 36.4; O2SAT 98
[2021-12-11 03:51] VITALS: BP 104/60; PULSE 89; RESP 17; TEMP 36.4; O2SAT 98
[2021-12-11] MEDS: Omeprazole 20 MG CAPSULE.DR PO (05:40)
[2021-12-11] MEDS: oxyCODONE HCl Immed Release 5 MG TABLET PO ×3 (05:40→20:02)
[2021-12-11] MEDS: ceFAZolin Sodium/Dextrose,Iso 2 GM/50 ML PIGGYBACK IV ×3 (05:41→23:50)
[2021-12-11 07:07] VITALS: BP 98/57; PULSE 71; RESP 18; TEMP 36.6; O2SAT 99
[2021-12-11 07:37] LABS: Glucose, Whole Blood 72 mg/dL (60-115)
[2021-12-11] MEDS: Cholecalciferol (Vitamin D3) 25 MCG TABLET PO (08:55)
[2021-12-11] MEDS: 0.9 % Sodium Chloride Flush 3 ML SYRINGE IVFLUSH ×2 (08:56→16:33)
[2021-12-11] MEDS: polyethylene glycoL 3350 17 GM POWD.PACK PO (08:56)
[2021-12-11] MEDS: Multivitamin TABLET 1 TAB PO (08:56)
[2021-12-11] MEDS: Cyanocobalamin (Vitamin B-12) 500 MCG TABLET PO (08:56)
--- NOTE | 2021-12-11 09:01 | HO.PM.IMPN ---
Subjective Subjective Date of Service: 12/11/21 Interval History: No acute complaints, no fever chills overnight, no events overnight. Review of Systems Review of Systems: Yes all other systems are reviewed and are negative Physical Exam Vital Signs: Vital Signs: Last Vital Signs Temp 98 F 12/11/21 07:07 Pulse 71 12/11/21 07:07 Resp 18 12/11/21 07:07 BP 98/57 L 12/11/21 07:07 Pulse Ox 99 12/11/21 07:07 BMI result Body Mass Index 19.1 Const: Other: Gen: in no acute distress, cachectic Neck: supple Lungs: clear to auscultation bilaterally Heart: regular rate and rhythm, no murmurs Abd: soft, non-tender, non-distended Ext: no edema Skin: warm/well-perfused, hip incision with no redness or fluctuance, multiple bruises left hip, right toe bruising no pain Neuro: alert and oriented x3, no focal findings Psych: appropriate affect Objective Data Active Medications Acetaminophen (Acetaminophen 325 Mg Tablet) 650 mg PO Q6H PRN PRN Reason: Pain, Mild (Pain Scale 1-3) Last Admin: 12/10/21 19:51 Dose: 650 mg Documented by: OSVALDO Collagenase (Collagenase Clostridium Hist. 30 Gm Tube) 1 appl TOPICAL DAILY [facility]; Protocol Last Admin: 12/10/21 12:12 Dose: 1 appl Documented by: MARY ANN Cyanocobalamin (Cyanocobalamin (Vitamin B-12) 500 Mcg Tablet) 500 mcg PO DAILY [facility] Last Admin: 12/11/21 08:56 Dose: 500 mcg Documented by: MARY ANN Docusate Sodium (Docusate Sodium 100 Mg Capsule) 100 mg PO DAILY PRN PRN Reason: Constipation Last Admin: 12/05/21 13:43 Dose: 100 mg Documented by: JOSE Enoxaparin Sodium (Enoxaparin Sodium 40 Mg/0.4 Ml Syringe) 40 mg SUBCUT Q24H [facility] Last Admin: 12/10/21 20:50 Dose: 40 mg Documented by: OSVALDO Ferrous Sulfate (Ferrous Sulfate 324 Mg Tablet.) 324 mg PO DAILY [facility] Last Admin: 12/10/21 09:19 Dose: 324 mg Documented by: MARY ANN Cefazolin Sodium/Dextrose (Ancef) 2 gm in 50 mls @ 100 mls/hr IV Q8H [facility] Last Infusion: 12/11/21 06:32 Dose: 0 mls/hr Documented by: OSVALDO Lorazepam (Lorazepam 0.5 Mg Tablet) 0.5 mg PO Q6H PRN PRN Reason: anxiety/restlessness Last Admin: 12/10/21 20:51 Dose: 0.5 mg Documented by: OSVALDO Mirtazapine (Mirtazapine 15 Mg Tablet) 15 mg PO DAILY@1999 [facility] Last Admin: 12/10/21 20:50 Dose: 15 mg Documented by: OSVALDO Multivitamins/Vitamin C (Multivitamin Tablet) 1 tab PO DAILY [facility] Last Admin: 12/11/21 08:56 Dose: 1 tab Documented by: MARY ANN Omeprazole (Omeprazole 20 Mg Capsule.Dr) 20 mg PO DAILY@629 [facility] Last Admin: 12/11/21 05:40 Dose: 20 mg Documented by: OSVALDO Ondansetron HCl (Ondansetron Hcl 4 Mg/2 Ml Vial) 4 mg IVPUSH Q8H PRN PRN Reason: Nausea and Vomiting Oxycodone HCl (Oxycodone Hcl Immed Release 5 Mg Tablet) 5 mg PO Q6H PRN PRN Reason: Breakthrough Pain Last Admin: 12/11/21 05:40 Dose: 5 mg Documented by: OSVALDO Pharmacy Consult (Consult Rx Perform Med Rec) 1 each MISCELLANE ONCE PRN PRN Reason: Consult order Pharmacy Consult (Consult Rx Vancomycin Dosing) 1 each MISCELLANE DAILY PRN PRN Reason: Consult order Polyethylene Glycol (Polyethylene Glycol 3350 17 Gm Powd.Pack) 17 gm PO DAILY [facility] Last Admin: 12/11/21 08:56 Dose: 17 gm Documented by: MARY ANN Sodium Chloride (0.9 % Sodium Chloride Flush 3 Ml Syringe) 3 ml IVFLUSH QSHIFT [facility] Last Admin: 12/11/21 08:56 Dose: 3 ml Documented by: MARY ANN Vitamin D (Cholecalciferol (Vitamin D3) 25 Mcg Tablet) 25 mcg PO DAILY [facility] Last Admin: 12/11/21 08:55 Dose: 25 mcg Documented by: MARY ANN Labs CBC & Chem 7: 12/08/21 04:54 03/03/22 04:54 Labs: Laboratory Results - last 24 hr 12/11/21 07:11 POC Glucose 72 Microbiology Microbiology Results: Microbiology 12/09/21 05:20 Blood Culture - Final Blood - Venous Staphylococcus aureus 12/09/21 05:30 Blood Culture - Preliminary Blood - Venous Prelim: GPC Gram Stain only Assessment and Plan (1) Closed intertrochanteric fracture of femur: Status: Acute (2) Malnutrition: Status: Acute (3) Failure to thrive in adult: Status: Acute Plan hospital d#8 61yo F s/p IM nailing for L intertrochanteric femur fx 11/16/21,sent in from Orthopedics office with symptomatic anemia/FTT found to be bacteremic # MSSA bacteremia - status post vancomycin x 48 h, now on cefazolin d#02/02 repeat BCx from December 0910/09 positive for gram-positive cocci,repeat limited echo showed no vegetation, likely source Skin, seen by Ortho left hip incision site clean Will continue current antibiotic, id agree with current antibiotic, repeat blood cultures at am, hold PICC line placement follow clinical course # anemia, normocytic - status post 1u pRBCs 11/29/21 , post transfusion hemoglobin remains stable will continue iron and B12 replacement - TRINA, TERRI, and flow for PNH all normal # hypoglycemia - resolved, was likely was due to inadequate PO intake and poor reserve, blood sugar improved due to better by mouth intake # hypophosphatemia - repleted, resolved. # stage 3 sacral pressure ulcer - continue nutritional supplements, triad cream frequent position change # postop IMN L intertrochanteric fx on 11/16/21 - continue VTE ppx 4 wk postop, incision clean, continue oxycodone for pain control, post fall x-rays 12/07 were obtained which are negative for new fractures, IM nail is in good position without migration ortho recommended 4 week follow-up in the office # severe protein/calorie malnutrition/# FTT - continue protein supplements - psych consult pending- ?eating disorder # anxiety - on mirtazapine started by psychiatry # VTE ppx - LMWH x 4 wk postop # dispo - plan STR, mental health case manager working for placement , does not have good VA coverage. Need continued inpatient care for persistent MSSA bacteremia requiring IV antibiotics and further testing, unable to place PICC line due to persistent positive blood culture. Quality Stroke Does the patient have a stroke diagnosis?: No VTE Prior VTE?: No VTE Risk Level:: Medical - moderate - high VTE Device Contraindication: Treatment Not Indicated VTE Drug Contraindication: N/A - Med Ordered
[2021-12-11 11:19] VITALS: BP 110/68; PULSE 94; RESP 18; TEMP 36.4; O2SAT 100
[2021-12-11] MEDS: Collagenase Clostridium Hist. 30 GM TUBE 1 APPL TOPICAL (13:29)
--- NOTE | 2021-12-11 13:58 | MHC.CM.PN ---
SNF REFERRALS UPDATED IN [facility]. OF THIS NOTE, NO INSURANCE UPDATES. CASE MANAGEMENT CONTINUING TO FOLLOW
[2021-12-11 15:23] VITALS: BP 115/76; PULSE 84; RESP 17; TEMP 36.5; O2SAT 100
[2021-12-11 19:05] VITALS: BP 113/62; PULSE 83; RESP 17; TEMP 37.6; O2SAT 98
[2021-12-11] MEDS: Enoxaparin Sodium 40 MG/0.4 ML SYRINGE SUBCUT (20:02)
[2021-12-11] MEDS: Mirtazapine 15 MG TABLET PO (20:02)
[2021-12-11 23:35] VITALS: BP 111/66; PULSE 84; RESP 16; TEMP 36.6; O2SAT 99
[2021-12-12] VITALS (7 sets, daily range): BP systolic 95–112; BP diastolic 56–66; PULSE 84–96; RESP 18; TEMP 36.4–36.7; O2SAT 96–100
[2021-12-12] MEDS: LORazepam 0.5 MG TABLET PO ×3 (00:20→16:10)
[2021-12-12] MEDS: ceFAZolin Sodium/Dextrose,Iso 2 GM/50 ML PIGGYBACK IV ×3 (05:06→20:07)
[2021-12-12] MEDS: Omeprazole 20 MG CAPSULE.DR PO (05:09)
[2021-12-12] MEDS: Cyanocobalamin (Vitamin B-12) 500 MCG TABLET PO (08:11)
[2021-12-12] MEDS: Cholecalciferol (Vitamin D3) 25 MCG TABLET PO (08:11)
[2021-12-12] MEDS: Docusate Sodium 100 MG CAPSULE PO (08:11)
[2021-12-12] MEDS: 0.9 % Sodium Chloride Flush 3 ML SYRINGE IVFLUSH ×3 (08:11→20:08)
[2021-12-12] MEDS: Multivitamin TABLET 1 TAB PO (08:11)
[2021-12-12] MEDS: oxyCODONE HCl Immed Release 5 MG TABLET PO ×3 (08:12→19:58)
[2021-12-12] MEDS: Collagenase Clostridium Hist. 30 GM TUBE 1 APPL TOPICAL (08:12)
--- NOTE | 2021-12-12 08:20 | PC.NURSE ---
Addendum entered by Yomaira Camilo RN 12/12/21 08:31: Patient AXO, No LOC, all neuos are intact. Original Note: Patient had a fall out of bed witnessed by the telemonitor camera system. Patient states she was trying to fix the sheets and slid out of bed. VSS BP 95/65, HR 96, Temp 97.7, O2 sat 100% on room air. Skin tear on patients right hand 4th and 5th fingers. Skin tears cleaned and bandaids applied. No other injuries noted. Camera in place, patient sitting in chair with chair alarm on, and patient made aware to call the nurses when something is needed. Dr. Sellers at bed side to assess patient, nursing sheet metal supervisor made aware and at bedside.
--- NOTE | 2021-12-12 09:12 | HO.PM.IMPN ---
Subjective Subjective Date of Service: 12/13/21 Interval History: Patient's slipped from bed since her legs were tangled in bed sheet no acute injuries, abrasions to right hand 4th and 5th fingers , denies chest pain, palpitations, no lightheadedness and dizziness prior to fall Feels fine now, offers no acute complaints. Review of Systems Review of Systems: Yes all other systems are reviewed and are negative Physical Exam Vital Signs: Vital Signs: Last Vital Signs Temp 97.7 F 12/12/21 08:00 Pulse 96 12/12/21 08:55 Resp 18 12/12/21 08:00 BP 95/65 12/12/21 08:55 Pulse Ox 100 12/12/21 08:55 BMI result Body Mass Index 19.1 Const: Other: Gen: no acute distress, cachectic Neck: supple Lungs: clear to auscultation , no wheeze, no crackles Heart: regular rate and rhythm, no murmurs Abd: soft, non-tender, non-distended, bowel sounds audible Ext: no edema Skin: Skin abrasion right hand 4th/5th fingers, hip incision with no redness or fluctuance, multiple bruises left hip, right foot bruising, no pain. Neuro: alert and oriented x3, no focal findings Psych: appropriate affect Objective Data Active Medications Acetaminophen (Acetaminophen 325 Mg Tablet) 650 mg PO Q6H PRN PRN Reason: Pain, Mild (Pain Scale 1-3) Last Admin: 12/10/21 19:51 Dose: 650 mg Documented by: OSVALDO Collagenase (Collagenase Clostridium Hist. 30 Gm Tube) 1 appl TOPICAL DAILY [facility]; Protocol Last Admin: 12/12/21 08:12 Dose: 1 appl Documented by: COTEMA Cyanocobalamin (Cyanocobalamin (Vitamin B-12) 500 Mcg Tablet) 500 mcg PO DAILY [facility] Last Admin: 12/12/21 08:11 Dose: 500 mcg Documented by: COTEMA Docusate Sodium (Docusate Sodium 100 Mg Capsule) 100 mg PO DAILY PRN PRN Reason: Constipation Last Admin: 12/12/21 08:11 Dose: 100 mg Documented by: RODERICKEMA Enoxaparin Sodium (Enoxaparin Sodium 40 Mg/0.4 Ml Syringe) 40 mg SUBCUT Q24H [facility] Last Admin: 12/11/21 20:02 Dose: 40 mg Documented by: MATT Ferrous Sulfate (Ferrous Sulfate 324 Mg Tablet.) 324 mg PO DAILY [facility] Last Admin: 12/12/21 08:09 Dose: Not Given Documented by: PEDRO LUIS Non-Admin Reason: Patient Refused Cefazolin Sodium/Dextrose (Ancef) 2 gm in 50 mls @ 100 mls/hr IV Q8H [facility] Last Infusion: 12/12/21 05:42 Dose: 0 mls/hr Documented by: MATT Lorazepam (Lorazepam 0.5 Mg Tablet) 0.5 mg PO Q6H PRN PRN Reason: anxiety/restlessness Last Admin: 12/12/21 08:11 Dose: 0.5 mg Documented by: PEDRO LUIS Mirtazapine (Mirtazapine 15 Mg Tablet) 15 mg PO DAILY@1999 [facility] Last Admin: 12/11/21 20:02 Dose: 15 mg Documented by: MATT Multivitamins/Vitamin C (Multivitamin Tablet) 1 tab PO DAILY [facility] Last Admin: 12/12/21 08:11 Dose: 1 tab Documented by: PEDRO LUIS Omeprazole (Omeprazole 20 Mg Capsule.) 20 mg PO DAILY@0630 [facility] Last Admin: 12/12/21 05:09 Dose: 20 mg Documented by: MATT Ondansetron HCl (Ondansetron Hcl 4 Mg/2 Ml Vial) 4 mg IVPUSH Q8H PRN PRN Reason: Nausea and Vomiting Oxycodone HCl (Oxycodone Hcl Immed Release 5 Mg Tablet) 5 mg PO Q6H PRN PRN Reason: Breakthrough Pain Last Admin: 12/12/21 08:12 Dose: 5 mg Documented by: PEDRO LUIS Pharmacy Consult (Consult Rx Perform Med Rec) 1 each MISCELLANE ONCE PRN PRN Reason: Consult order Pharmacy Consult (Consult Rx Vancomycin Dosing) 1 each MISCELLANE DAILY PRN PRN Reason: Consult order Polyethylene Glycol (Polyethylene Glycol 3350 17 Gm Powd.Pack) 17 gm PO DAILY [facility] Last Admin: 12/12/21 08:10 Dose: Not Given Documented by: PEDRO LUIS Non-Admin Reason: pt choice to take colace over miralax Sodium Chloride (0.9 % Sodium Chloride Flush 3 Ml Syringe) 3 ml IVFLUSH QSHIFT [facility] Last Admin: 12/12/21 08:11 Dose: 3 ml Documented by: PEDRO LUIS Vitamin D (Cholecalciferol (Vitamin D3) 25 Mcg Tablet) 25 mcg PO DAILY [facility] Last Admin: 12/12/21 08:11 Dose: 25 mcg Documented by: PEDRO LUIS Labs CBC & Chem 7: 12/13/21 05:20 12/13/21 05:20 Microbiology Microbiology Results: Microbiology 12/07/21 05:12 Blood Culture - Preliminary Blood - Venous Staphylococcus aureus 12/07/21 05:20 Blood Culture - Preliminary Blood - Venous Staphylococcus aureus 12/09/21 05:30 Blood Culture - Final Blood - Venous Staphylococcus aureus 12/09/21 05:20 Blood Culture - Final Blood - Venous Staphylococcus aureus Assessment and Plan (1) Closed intertrochanteric fracture of femur: Status: Acute (2) Malnutrition: Status: Acute (3) Failure to thrive in adult: Status: Acute Plan hospital d#8 61yo F s/p IM nailing for L intertrochanteric femur fx 11/16/21,sent in from Orthopedics office with symptomatic anemia/FTT found to be bacteremic # MSSA bacteremia - status post vancomycin x 48 h, now on cefazolin d#03/04 repeat BCx from December 0910/09 positive for gram-positive cocci,repeat limited echo showed no vegetation, likely source Skin, seen by Ortho left hip incision site clean Will continue current antibiotic, repeat blood cultures ordered, PICC line placement after blood cultures negative, follow clinical course # mechanical fall patient fell this morning since legs caught in bed sheets, while patient trying to fix the bed, no head injury recommend to call for assistance when requires help. Will apply Band-Aid to skin abrasions, no further imaging studies needed due to normal physical exam # anemia, normocytic - status post 1u pRBCs 11/29/21 , post transfusion hemoglobin remains stable will continue iron and B12 replacement - TRINA, TERRI, and flow for PNH all normal # hypoglycemia - resolved, was likely was due to inadequate PO intake and poor reserve, blood sugar improved due to better by mouth intake # hypophosphatemia - repleted, resolved. # stage 3 sacral pressure ulcer - continue nutritional supplements, triad cream frequent position change # postop IMN L intertrochanteric fx on 11/16/21 - continue VTE ppx 4 wk postop, incision clean, continue oxycodone for pain control, post fall x-rays / were obtained which are negative for new fractures, IM nail is in good position without migration ortho recommended 4 week follow-up in the office # severe protein/calorie malnutrition/# FTT - continue protein supplements - CT chest, abdomen and pelvis showed no evidence of malignancy - seen by psych and diagnosed to have obsessive-compulsive disorder and anxiety. # anxiety - on mirtazapine and as needed Ativan started by psychiatry # VTE ppx - LMWH x 4 wk postop # dispo - plan STR, patient case coordinator working for placement , does not have good [facility] coverage. Need continued inpatient care for persistent MSSA bacteremia requiring IV antibiotics and further testing, unable to place PICC line due to persistent positive blood culture. Quality Stroke Does the patient have a stroke diagnosis?: No VTE Prior VTE?: No VTE Risk Level:: Medical - moderate - high VTE Device Contraindication: Treatment Not Indicated VTE Drug Contraindication: N/A - Med Ordered
[2021-12-12] MEDS: Acetaminophen 325 MG TABLET 650 MG PO ×2 (12:11→19:58)
--- NOTE | 2021-12-12 12:55 | MHC.CM.PN ---
EMR REVIEWED, PT'S 3RD SET OF BC'S ARE POSITIVE, FOURTH SET DRAWN TODAY, PLAN CONT'S TO BE FOR STR FOR LONG-TERM IV ABX ONCE CULTURES ARE NEG AND PICC LINE CAN BE PLACED. CM TO CONT TO FOLLOW D/C NEEDS.
--- NOTE | 2021-12-12 14:06 | MHC.CLN ---
F/U DIET=REGULAR. SUPPLEMENT ENSURE TID AND ABDIEL BID TO PROVIDE ADDITIONAL 1210 KCALS, 65 G PROTEIN. PATIENT IS MODERATELY MALNOURISHED AND HAS STAGE III SACRAL WOUND. PO INTAKE 50-100% (12/10-12/12). TYPICALLY ORDERS SMALLER SIZE MEALS.. MONITOR PO INTAKE AND SUPPLEMENT ACCEPTANCE CLOSELY.
--- NOTE | 2021-12-12 14:10 | PC.NURSE ---
Skin/Wound assessment completed today. Patient has skin tears to her right upper arm, right elbow, right forearm, right lower leg and left lower leg. She has a stage 3 to sacrum(on admission). She has redness to upper bony spine prominence-foam for protection. Xeroform to all skin tears and Santyl to stage 3 pressure ulcer. The skin tear to her left hip has healed. All wounds have improved since admission. There is still some edema to bilateral feet. Skin is very thin and wrinkled. No weeping of fluid.
[2021-12-12] MEDS: Mirtazapine 15 MG TABLET PO (19:58)
[2021-12-12] MEDS: Enoxaparin Sodium 40 MG/0.4 ML SYRINGE SUBCUT (19:59)
--- NOTE | 2021-12-12 21:15 | MHC.PIE ---
p; pt reported 10/10 pain lt hip and h/a, prn Tylenol and prn oxy given at 1958. at 2029 got report from staff/rn that pt calling reporting pain asking for Tylenol and oxy. i; pt reminded that pain meds were given at 1957 and is unable to get another pain meds at this time e; pt in bed in room with sitter at bed side, pt refusing to answer questions/pain reassessments, will cont to monitor
[2021-12-13] VITALS (9 sets, daily range): BP systolic 110–131; BP diastolic 59–68; PULSE 94–103; RESP 14–18; TEMP 36.4–37.4; O2SAT 99–100
[2021-12-13] MEDS: oxyCODONE HCl Immed Release 5 MG TABLET PO ×3 (04:03→20:57)
[2021-12-13] MEDS: Acetaminophen 325 MG TABLET 650 MG PO ×2 (04:03→20:57)
[2021-12-13] MEDS: ceFAZolin Sodium/Dextrose,Iso 2 GM/50 ML PIGGYBACK IV ×3 (04:06→21:42)
[2021-12-13] MEDS: Omeprazole 20 MG CAPSULE.DR PO (04:07)
[2021-12-13] MEDS: LORazepam 0.5 MG TABLET PO ×2 (04:39→21:38)
[2021-12-13 05:51] LABS: Hematocrit 22.1 % (37.0-47.0); Hemoglobin 7.2 g/dl (12.0-16.0); Mean Corpuscular HGB Conc 32.6 g/dl (31.0-35.0); Mean Corpuscular Hemoglobin 29.5 pg (27.0-33.0); Mean Corpuscular Volume 90.6 fL (80.0-98.0); Mean Platelet Volume 11.1 fL (9.4-12.3); Platelet Count 374 X10*3/uL (160-400); Red Blood Count 2.44 X10*6/uL (4.20-5.50); Red Cell Distribution Width 22.5 % (11.0-16.0); White Blood Count 15.1 X10*3/uL (4.8-10.8)
[2021-12-13 06:09] LABS: Albumin Level 1.7 g/dL (3.5-5.0); Anion Gap 12 (12-20); Blood Urea Nitrogen 23 mg/dL (9-16); Calcium 7.6 mg/dL (8.4-10.2); Carbon Dioxide 28 mmol/L (22-29); Chloride 105 mmol/L (96-108); Creatinine Clr Calc Pharmacy 60.8; Estimated Glomerular Filt Rate > 60; Glucose Random 84 mg/dL (60-115); Potassium 3.5 mmol/L (3.3-5.1); Sodium 141 mmol/L (135-145)
[2021-12-13] MEDS: Multivitamin TABLET 1 TAB PO (09:02)
[2021-12-13] MEDS: Cholecalciferol (Vitamin D3) 25 MCG TABLET PO (09:02)
[2021-12-13] MEDS: polyethylene glycoL 3350 17 GM POWD.PACK PO (09:02)
[2021-12-13] MEDS: Cyanocobalamin (Vitamin B-12) 500 MCG TABLET PO (09:02)
[2021-12-13] MEDS: 0.9 % Sodium Chloride Flush 3 ML SYRINGE IVFLUSH ×3 (09:03→21:43)
--- NOTE | 2021-12-13 10:23 | MHC.CM.PN ---
EMR REVIEWED, 4TH SET OF BC'S STILL PENDING, ONCE BC'S ARE NEGATIVE PICC/MIDLINE TO BE PLACED AND PT WILL NEED STR FOR COLLEGE AND CAREER COUNSELOR IV ABX, PT'S PREFERRED [facility] OF FOLLOWING, CM TO CONT TO FOLLOW D/C NEEDS.
--- NOTE | 2021-12-13 11:59 | HO.PM.IMPN ---
Subjective Subjective Date of Service: 12/13/21 Interval History: Trying to eat better, tolerating Ensure and Guille powder, no nausea no vomiting no abdominal, no other acute issues overnight, persistent lower back discomfort due to pressure sore. Review of Systems Review of Systems: Yes all other systems are reviewed and are negative Physical Exam Vital Signs: Vital Signs: Last Vital Signs Temp 97.9 F 12/13/21 11:31 Pulse 102 H 12/13/21 11:31 Resp 18 12/13/21 11:31 BP 131/65 12/13/21 11:31 Pulse Ox 100 12/13/21 11:31 BMI result Body Mass Index 19.1 Const: Other: Gen:? no acute distress, cachectic Neck: supple Lungs: clear to auscultation , no wheeze, no crackles Heart: regular rate and rhythm, no murmurs Abd: soft, non-tender, non-distended, bowel sounds audible Ext: no edema Skin:?pallor,Skin abrasion right hand 4th/5th fingers, hip incision with no redness or fluctuance, multiple bruises left hip, right foot bruising, no pain. Neuro: alert and oriented x3, no focal findings Psych: appropriate affect Objective Data Active Medications Acetaminophen (Acetaminophen 325 Mg Tablet) 650 mg PO Q6H PRN PRN Reason: Pain, Mild (Pain Scale 1-3) Last Admin: 12/13/21 04:03 Dose: 650 mg Documented by: DAVID Collagenase (Collagenase Clostridium Hist. 30 Gm Tube) 1 appl TOPICAL DAILY [facility]; Protocol Last Admin: 12/13/21 09:04 Dose: Not Given Documented by: PRABHJOT Non-Admin Reason: will do dsg change later Cyanocobalamin (Cyanocobalamin (Vitamin B-12) 500 Mcg Tablet) 500 mcg PO DAILY [facility] Last Admin: 12/13/21 09:02 Dose: 500 mcg Documented by: PRABHJOT Docusate Sodium (Docusate Sodium 100 Mg Capsule) 100 mg PO DAILY PRN PRN Reason: Constipation Last Admin: 12/12/21 08:11 Dose: 100 mg Documented by: COTEMA Enoxaparin Sodium (Enoxaparin Sodium 40 Mg/0.4 Ml Syringe) 40 mg SUBCUT Q24H [facility] Last Admin: 12/12/21 19:59 Dose: 40 mg Documented by: DAVID Ferrous Sulfate (Ferrous Sulfate 324 Mg Tablet.) 324 mg PO DAILY [facility] Last Admin: 12/13/21 09:03 Dose: Not Given Documented by: PRABHJOT Non-Admin Reason: Patient Refused Cefazolin Sodium/Dextrose (Ancef) 2 gm in 50 mls @ 100 mls/hr IV Q8H [facility] Last Infusion: 12/13/21 04:40 Dose: 0 mls/hr Documented by: DAVID Lorazepam (Lorazepam 0.5 Mg Tablet) 0.5 mg PO Q8H PRN PRN Reason: Anxiety Last Admin: 12/13/21 04:39 Dose: 0.5 mg Documented by: DAVID Mirtazapine (Mirtazapine 15 Mg Tablet) 15 mg PO DAILY@1999 [facility] Last Admin: 12/12/21 19:58 Dose: 15 mg Documented by: DAVID Multivitamins/Vitamin C (Multivitamin Tablet) 1 tab PO DAILY [facility] Last Admin: 12/13/21 09:02 Dose: 1 tab Documented by: PRABHJOT Omeprazole (Omeprazole 20 Mg Capsule.) 20 mg PO DAILY@0630 [facility] Last Admin: 12/13/21 04:07 Dose: 20 mg Documented by: DAVID Comments: pt wants Ondansetron HCl (Ondansetron Hcl 4 Mg/2 Ml Vial) 4 mg IVPUSH Q8H PRN PRN Reason: Nausea and Vomiting Oxycodone HCl (Oxycodone Hcl Immed Release 5 Mg Tablet) 5 mg PO Q6H PRN PRN Reason: Breakthrough Pain Last Admin: 12/13/21 04:03 Dose: 5 mg Documented by: DAVID Pharmacy Consult (Consult Rx Perform Med Rec) 1 each MISCELLANE ONCE PRN PRN Reason: Consult order Pharmacy Consult (Consult Rx Vancomycin Dosing) 1 each MISCELLANE DAILY PRN PRN Reason: Consult order Polyethylene Glycol (Polyethylene Glycol 3350 17 Gm Powd.Pack) 17 gm PO DAILY [facility] Last Admin: 12/13/21 09:02 Dose: 17 gm Documented by: PRABHJOT Sodium Chloride (0.9 % Sodium Chloride Flush 3 Ml Syringe) 3 ml IVFLUSH QSHIFT [facility] Last Admin: 12/13/21 09:03 Dose: 3 ml Documented by: PRABHJOT Vitamin D (Cholecalciferol (Vitamin D3) 25 Mcg Tablet) 25 mcg PO DAILY [facility] Last Admin: 12/13/21 09:02 Dose: 25 mcg Documented by: PRABHJOT Labs CBC & Chem 7: 12/13/21 05:20 12/13/21 05:20 Labs: Laboratory Results - last 24 hr 12/13/21 12/13/21 05:20 05:20 MCV 90.6 MCH 29.5 MCHC 32.6 RDW 22.5 H Plt Count 374 D MPV 11.1 Absolute Nucleated RBC 0.000 Nucleated RBC % (auto) 0.0 Anion Gap 12 Estim Creat Clear Calc 60.8 Estimated GFR > 60 Random Glucose 84 Calcium 7.6 L Albumin 1.7 L Microbiology Microbiology Results: Microbiology 12/07/21 05:12 Blood Culture - Final Blood - Venous Staphylococcus aureus 12/07/21 05:20 Blood Culture - Final Blood - Venous Staphylococcus aureus Assessment and Plan (1) Closed intertrochanteric fracture of femur: Status: Acute (2) Malnutrition: Status: Acute (3) Failure to thrive in adult: Status: Acute Plan hospital d#8 61yo F s/p IM nailing for L intertrochanteric femur fx 11/16/21,sent in from Orthopedics office with symptomatic anemia/FTT found to be bacteremic # MSSA bacteremia - status post vancomycin x 48 h, now on cefazolin d#03/04 repeat BCx from December 0910/09 positive for gram-positive cocci,repeat limited echo showed no vegetation, likely source Skin, seen by Ortho left hip incision site clean Will continue current antibiotic, repeat blood cultures ordered, PICC line placement after blood cultures negative, follow clinical course # mechanical fall patient fell this morning since legs caught in bed sheets, while patient trying to fix the bed, no head injury recommend to call for assistance when requires help. Will apply Band-Aid to skin abrasions, no further imaging studies needed due to normal physical exam # anemia, normocytic - hematocrit dropped to 22, likely due to malnutrition status post 1u pRBCs 11/29/21 , on iron and B12 replacement, will transfuse 1 unit of packed RBC obtain patient consent follow post transfusion hematocrit - TRINA, TERRI, and flow for PNH all normal # hypoglycemia - resolved, was likely was due to inadequate PO intake and poor reserve, blood sugar improved due to better by mouth intake # hypophosphatemia - repleted, resolved. # stage 3 sacral pressure ulcer - continue nutritional supplements, triad cream frequent position change # postop IMN L intertrochanteric fx on 11/16/21 - continue VTE ppx 4 wk postop, incision clean, continue oxycodone for pain control, post fall x-rays 12/07 were obtained which are negative for new fractures, IM nail is in good position without migration ortho recommended 4 week follow-up in the office # severe protein/calorie malnutrition/# FTT - continue protein supplements, Guille powder, albumin remains low at 1.7 - CT chest, abdomen and pelvis showed no evidence of malignancy - seen by psych and diagnosed to have obsessive-compulsive disorder and anxiety. 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 Need continued inpatient care for persistent MSSA bacteremia requiring IV antibiotics waiting for repeat blood culture results, also need blood transfusion for acute drop in hematocrit Quality Stroke Does the patient have a stroke diagnosis?: No VTE Prior VTE?: No VTE Risk Level:: Medical - moderate - high VTE Device Contraindication: Treatment Not Indicated VTE Drug Contraindication: N/A - Med Ordered
--- NOTE | 2021-12-13 13:10 | MHC.CM.PN ---
CM MET W/PT WHO REPORTS SHE WOULD LIKE TO FIND A PCP, CM GAVE PT PAMPHLET OF [facility] PROVIDERS AND PT HAS CHOSEN [facility] AND CM HAS REQUESTED CM ACCOUNT RESOLUTION SPECIALIST BOOK A NEW PT APPT FOR PT.
[2021-12-13] MEDS: Collagenase Clostridium Hist. 30 GM TUBE 1 APPL TOPICAL (18:03)
[2021-12-13] MEDS: Mirtazapine 15 MG TABLET PO (20:57)
[2021-12-13] MEDS: Enoxaparin Sodium 40 MG/0.4 ML SYRINGE SUBCUT (20:57)
[2021-12-14] VITALS (7 sets, daily range): BP systolic 118–134; BP diastolic 60–76; PULSE 89–100; RESP 16–18; TEMP 36.1–36.8; O2SAT 98–100
[2021-12-14] MEDS: Acetaminophen 325 MG TABLET 650 MG PO ×2 (06:22→12:30)
[2021-12-14] MEDS: ceFAZolin Sodium/Dextrose,Iso 2 GM/50 ML PIGGYBACK IV (06:23)
[2021-12-14] MEDS: oxyCODONE HCl Immed Release 5 MG TABLET PO ×3 (06:23→19:06)
[2021-12-14] MEDS: Omeprazole 20 MG CAPSULE.DR PO (06:23)
--- NOTE | 2021-12-14 06:39 | PM.EVENT ---
Event Note Date of Service: 12/14/21 Event Note: blood culture showing Gram-positive cocci in clusters, started on vancomycin, repeat blood cultures
--- NOTE | 2021-12-14 07:52 | PHA.PROG ---
Admission Date/Time: December 01, 2021 12:45 Indication: Bacteremia Weight in k.555 kg Adjusted body weight in Kg: [place] body weight in Kg: Obesity Dosing Indication % IBW: Serum Creatinine - Last 168 Hours 12/07/21 12/08/21 12/13/21 05:20 04:54 05:20 Creatinine 0.48 L 0.52 0.55 Estimated CrCl and GFR - Last 168 Hours 12/07/21 12/08/21 12/13/21 05:20 04:54 05:20 Estim Creat Clear Calc 69.6 64.3 60.8 Estimated GFR > 60 > 60 > 60 Vancomycin Loading Dose: 1250 mg Current Vancomycin Dosing Regimen: 1250 mg Q24H Vancomycin Monitoring using AUC goal of 400 - 600 range with trough as surrogate marker: Predicting a AUC of 451 with a trough of 10.8 Date and Time for next Vancomycin Level to be drawn: 12/16 @ 0600 Vancomycin Trough 10.2 mcg/mL (10.0-20.0) 12/08/21 04:54 Pharmacist Comments on Vancomycin Plan: We will continue to monitor renal function. I confirmed the patients weight with RN. Vancomycin dosing will take advantage of Cymax as a clinical decision support tool that uses Bayesian modeling to calculate individual patient's pharmacokinetic parameters and forecast the patient's drug concentration time course with the target goal AUC 24 range of 400 - 600 mg/L/hr.
[2021-12-14 08:03] LABS: Anion Gap 11 (12-20); Blood Urea Nitrogen 23 mg/dL (9-16); Calcium 7.4 mg/dL (8.4-10.2); Carbon Dioxide 28 mmol/L (22-29); Chloride 106 mmol/L (96-108); Creatinine Clr Calc Pharmacy 65.5; Estimated Glomerular Filt Rate > 60; Glucose Random 78 mg/dL (60-115); Potassium 3.7 mmol/L (3.3-5.1); Sodium 141 mmol/L (135-145)
[2021-12-14] MEDS: Cholecalciferol (Vitamin D3) 25 MCG TABLET PO (08:13)
[2021-12-14] MEDS: Multivitamin TABLET 1 TAB PO (08:13)
[2021-12-14] MEDS: Cyanocobalamin (Vitamin B-12) 500 MCG TABLET PO (08:13)
[2021-12-14] MEDS: vancomycin HCL 1,250 MG in 0.9 % Sodium Chloride 250 ML 166.67 MG IV (08:14)
[2021-12-14] MEDS: polyethylene glycoL 3350 17 GM POWD.PACK PO (08:18)
[2021-12-14] MEDS: 0.9 % Sodium Chloride Flush 3 ML SYRINGE IVFLUSH ×3 (08:20→20:53)
--- NOTE | 2021-12-14 13:16 | MHC.CLN ---
F/U DIET=REGULAR. SUPPLEMENT ENSURE TID AND ABDIEL BID TO PROVIDE ADDITIONAL 1210 KCALS, 65 G PROTEIN. PATIENT IS MODERATELY MALNOURISHED AND HAS STAGE III SACRAL WOUND. PO INTAKE 50-100%. STATED THAT DRINKING 100% OF SUPPLEMENT THREE TIMES DAILY. MONITOR PO INTAKE AND SUPPLEMENT ACCEPTANCE CLOSELY.
--- NOTE | 2021-12-14 14:39 | PM.IDPN ---
Subjective Subjective Date of Service: 12/14/21 Interval History: she continues to have positive blood cultures,last on 12/12 she has hip discomfort Critical Care Time (minutes): 15 Objective Data Labs CBC & Chem 7: 12/13/21 05:20 12/14/21 06:56 Labs: Laboratory Results - last 24 hr 12/13/21 12/14/21 16:47 06:56 Sodium 141 Potassium 3.7 Chloride 106 Carbon Dioxide 28 Anion Gap 11 L BUN 23 H Creatinine 0.51 Estim Creat Clear Calc 65.5 Estimated GFR > 60 Random Glucose 78 Calcium 7.4 L Blood Type O Positive Antibody Screen NEGATIVE Crossmatch See Detail Microbiology Microbiology Results: Microbiology 12/12/21 10:14 Blood - Venous Blood Culture - Preliminary No growth after 48 hours. 12/12/21 10:14 Blood - Venous Blood Culture - Preliminary Prelim: GPC Gram Stain only 12/07/21 05:12 Blood - Venous Blood Culture - Final Staphylococcus aureus 12/07/21 05:20 Blood - Venous Blood Culture - Final Staphylococcus aureus 12/09/21 05:30 Blood - Venous Blood Culture - Final Staphylococcus aureus 12/09/21 05:20 Blood - Venous Blood Culture - Final Staphylococcus aureus 12/05/21 18:33 Urine clean catch - Urine estrada top Urine Culture - Final Aerococcus viridans 12/06/21 05:42 Blood - Venous Blood Culture - Final Staphylococcus aureus 12/06/21 05:36 Blood - Venous Blood Culture - Final Staphylococcus aureus Physical Exam Vital Signs: Vital Signs: Last Vital Signs Temp 98 F 12/14/21 10:52 Pulse 89 12/14/21 10:52 Resp 18 12/14/21 10:52 BP 118/76 12/14/21 10:52 Pulse Ox 100 12/14/21 10:52 BMI result Body Mass Index 19.1 Const: General: cooperative Resp: Effort & Inspection: normal respiratory effort Cardio: Rate: regular rate Rhythm: regular rhythm GI: Palpation (GI): Soft to palpation and nontender Skin: General skin exam: no rashes or lesions noted Assessment and Plan Assessment and plan (1) MSSA bacteremia: Problem details: PSSA bacteremia ,still present There is concern over skin/leg source Status: Acute Assessment and Plan: Change to IV Daptomycin Check blood cultures two days. Time Spent With Patient Time: Total time spent is greater than 50% in coordination of care (as documented) at patient's floor/unit and/or counseling patient: Time with patient: less than 15 minutes
--- NOTE | 2021-12-14 14:52 | MHC.CM.PN ---
EMR REVIEWED, PT 4TH SET OF BC'S POSITIVE, 5TH SET DRAWN THIS MORNING, PER PT REQUEST NEW PT APPT W/[facility] MADE FOR March AT 11:30AM, APPT HAS BEEN ADDED TO D/C PAPERWORK. PT ALSO HAS AN ORTHO FOLLOW-UP W/[facility] ON JANUARY 06 AT 11:30AM, CM WILL CONT TO FOLLOW D/C NEEDS.
--- NOTE | 2021-12-14 15:38 | HO.PM.IMPN ---
Subjective Subjective Date of Service: 12/14/21 Interval History: Complaining of left leg discomfort otherwise tolerating diet, taking Ensure and Guille powder, no acute events overnight. Review of Systems Review of Systems: Yes all other systems are reviewed and are negative Physical Exam Vital Signs: Vital Signs: Last Vital Signs Temp 98.3 F 12/14/21 15:10 Pulse 96 12/14/21 15:10 Resp 16 12/14/21 15:10 BP 134/60 12/14/21 15:10 Pulse Ox 100 12/14/21 15:10 BMI result Body Mass Index 19.1 Const: Other: Gen:? no acute distress, cachectic Neck: supple Lungs: clear to auscultation , no wheeze, no crackles Heart: regular rate and rhythm, no murmurs Abd: soft, non-tender, non-distended, bowel sounds audible Ext: no edema Skin:?pallor,Skin abrasion right hand 4th/5th fingers, right elbow, stage III coccyx healing well no surrounding erythema or redness, right leg small abrasion No infected skin wounds noted, hip incision with no redness or fluctuance, multiple bruises left hip, right foot bruising, no pain. Neuro: alert and oriented x3, no focal findings Psych: appropriate affect Objective Data Active Medications Acetaminophen (Acetaminophen 325 Mg Tablet) 650 mg PO Q6H PRN PRN Reason: Pain, Mild (Pain Scale 1-3) Last Admin: 12/14/21 12:30 Dose: 650 mg Documented by: WILL Collagenase (Collagenase Clostridium Hist. 30 Gm Tube) 1 appl TOPICAL DAILY [facility]; Protocol Last Admin: 12/14/21 12:32 Dose: Not Given Documented by: WILL Non-Admin Reason: will give later Cyanocobalamin (Cyanocobalamin (Vitamin B-12) 500 Mcg Tablet) 500 mcg PO DAILY [facility] Last Admin: 12/14/21 08:13 Dose: 500 mcg Documented by: WILL Docusate Sodium (Docusate Sodium 100 Mg Capsule) 100 mg PO DAILY PRN PRN Reason: Constipation Last Admin: 12/12/21 08:11 Dose: 100 mg Documented by: COTEMA Enoxaparin Sodium (Enoxaparin Sodium 40 Mg/0.4 Ml Syringe) 40 mg SUBCUT Q24H [facility] Last Admin: 12/13/21 20:57 Dose: 40 mg Documented by: DAVID Ferrous Sulfate (Ferrous Sulfate 324 Mg Tablet.) 324 mg PO DAILY [facility] Last Admin: 12/14/21 08:13 Dose: Not Given Documented by: WILL Non-Admin Reason: Patient Refused Daptomycin 350 mg/ Sodium (Chloride) 57 mls @ 100 mls/hr IV Q24H [facility] Lorazepam (Lorazepam 0.5 Mg Tablet) 0.5 mg PO Q8H PRN PRN Reason: Anxiety Last Admin: 12/13/21 21:38 Dose: 0.5 mg Documented by: DAVID Mirtazapine (Mirtazapine 15 Mg Tablet) 15 mg PO DAILY@2000 [facility] Last Admin: 12/13/21 20:57 Dose: 15 mg Documented by: DAVID Multivitamins/Vitamin C (Multivitamin Tablet) 1 tab PO DAILY [facility] Last Admin: 12/14/21 08:13 Dose: 1 tab Documented by: WILL Omeprazole (Omeprazole 20 Mg Capsule.) 20 mg PO DAILY@0630 [facility] Last Admin: 12/14/21 06:23 Dose: 20 mg Documented by: DAVID Ondansetron HCl (Ondansetron Hcl 4 Mg/2 Ml Vial) 4 mg IVPUSH Q8H PRN PRN Reason: Nausea and Vomiting Oxycodone HCl (Oxycodone Hcl Immed Release 5 Mg Tablet) 5 mg PO Q6H PRN PRN Reason: Breakthrough Pain Last Admin: 12/14/21 12:30 Dose: 5 mg Documented by: WILL Pharmacy Consult (Consult Rx Perform Med Rec) 1 each MISCELLANE ONCE PRN PRN Reason: Consult order Pharmacy Consult (Consult Rx Vancomycin Dosing) 1 each MISCELLANE DAILY PRN PRN Reason: Consult order Polyethylene Glycol (Polyethylene Glycol 3350 17 Gm Powd.Pack) 17 gm PO DAILY [facility] Last Admin: 12/14/21 08:18 Dose: 17 gm Documented by: WILL Sodium Chloride (0.9 % Sodium Chloride Flush 3 Ml Syringe) 3 ml IVFLUSH QSHIFT [facility] Last Admin: 12/14/21 08:20 Dose: 3 ml Documented by: WILL Vitamin D (Cholecalciferol (Vitamin D3) 25 Mcg Tablet) 25 mcg PO DAILY [facility] Last Admin: 12/14/21 08:13 Dose: 25 mcg Documented by: WILL Labs CBC & Chem 7: 12/13/21 05:20 12/14/21 06:56 Labs: Laboratory Results - last 24 hr 12/13/21 12/14/21 16:47 06:56 Anion Gap 11 L Estim Creat Clear Calc 65.5 Estimated GFR > 60 Random Glucose 78 Calcium 7.4 L Blood Type O Positive Antibody Screen NEGATIVE Crossmatch See Detail Microbiology Microbiology Results: Microbiology 12/12/21 10:14 Blood Culture - Preliminary Blood - Venous No growth after 48 hours. 12/12/21 10:14 Blood Culture - Preliminary Blood - Venous Prelim: GPC Gram Stain only Assessment and Plan (1) Closed intertrochanteric fracture of femur: Status: Acute (2) Malnutrition: Status: Acute (3) Failure to thrive in adult: Status: Acute Plan hospital d#8 61yo F s/p IM nailing for L intertrochanteric femur fx 11/16/21,sent in from Orthopedics office with symptomatic anemia/FTT found to be bacteremic # MSSA bacteremia - status post vancomycin x 48 h, on cefazolin d#6 repeat BCx from December 1210/09 positive for gram-positive cocci, repeat limited echo showed no vegetation, likely source Skin, recent left hip surgery incision site clean Case discussed with Dr. Milian patient placed on IV daptomycin, will repeat blood cultures after 48 hours Reconsulted ortho for evaluation of left hip Reviewed all wounds with wound care nurse no infected wound noted # mechanical fall Multiple falls in-hospital, no head injury, recommend to call for assistance when requires help. # anemia, normocytic - status post 1 unit of packed RBC on 12/13/21 due to hematocrit of 22, status post 1u pRBCs 11/29/21 , on iron and B12 replacement, - TRINA, TERRI, and flow for PNH all normal Follow CBC at a.m. # hypoglycemia - resolved, was likely was due to inadequate PO intake and poor reserve, blood sugar improved due to better by mouth intake # hypophosphatemia - repleted, resolved. # stage 3 sacral pressure ulcer - continue nutritional supplements, triad cream frequent position change , healing well # postop IMN L intertrochanteric fx on 11/16/21 - continue VTE ppx 4 wk postop, incision clean, continue oxycodone for pain control, post fall x-rays / were obtained which are negative for new fractures, IM nail is in good position without migration ortho recommended 4 week follow-up in the office, continue VTE prophylaxis since patient mostly in bed. # severe protein/calorie malnutrition/# FTT - continue protein supplements, Guille powder, albumin remains low at 1.7 - CT chest, abdomen and pelvis showed no evidence of malignancy - seen by psych and diagnosed to have obsessive-compulsive disorder and anxiety. 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 Need continued inpatient care for persistent MSSA bacteremia requiring IV antibiotics Quality Stroke Does the patient have a stroke diagnosis?: No VTE Prior VTE?: No VTE Risk Level:: Medical - moderate - high VTE Device Contraindication: Treatment Not Indicated VTE Drug Contraindication: N/A - Med Ordered
--- NOTE | 2021-12-14 19:01 | PM.PNORT ---
Subjective Subjective Date of Service: 12/14/21 Interval history: 4wks s/p Lt hip IMN She continues to work with PT has some pain with hip flexion MSSA+ bacteremia -unknown source Physical Exam Vital Signs: Vital Signs: Last Vital Signs Temp 98.3 F 12/14/21 15:10 Pulse 96 12/14/21 15:10 Resp 16 12/14/21 15:10 BP 134/60 12/14/21 15:10 Pulse Ox 100 12/14/21 15:10 BMI result Body Mass Index 19.1 Const: General: cooperative, healthy appearing and no acute distress Resp: Effort & Inspection: normal respiratory effort and able to speak in complete sentences Cardio: Rate: regular rate Peripheral pulses: Peripheral pulses 2+ throughout GI: Palpation (GI): Soft to palpation Skin: General skin exam: no rashes or lesions noted Extrem: Other: Left hip incisions well healed, no swelling or erythema. Mild discomfort with ROM of the hip She is able to initiate hip flexion Procedures Date of Service Date of Service: 12/14/21 Progress Note: A&P Assessment and plan (1) Closed intertrochanteric fracture of femur: Status: Acute Assessment and Plan: Continue with PT/OT Source of bacteremia does not appear to be coming from the hip would recommend continue abx Fall Risk Details Current Medications: Current Medications Acetaminophen (Acetaminophen 325 Mg Tablet) 650 mg PO Q6H PRN PRN Reason: Pain, Mild (Pain Scale 1-3) Last Admin: 12/14/21 12:30 Dose: 650 mg Documented by: Collagenase (Collagenase Clostridium Hist. 30 Gm Tube) 1 appl TOPICAL DAILY [facility]; Protocol Last Admin: 12/14/21 12:32 Dose: Not Given Documented by: Cyanocobalamin (Cyanocobalamin (Vitamin B-12) 500 Mcg Tablet) 500 mcg PO DAILY [facility] Last Admin: 12/14/21 08:13 Dose: 500 mcg Documented by: Docusate Sodium (Docusate Sodium 100 Mg Capsule) 100 mg PO DAILY PRN PRN Reason: Constipation Last Admin: 12/12/21 08:11 Dose: 100 mg Documented by: Enoxaparin Sodium (Enoxaparin Sodium 40 Mg/0.4 Ml Syringe) 40 mg SUBCUT Q24H [facility] Last Admin: 12/13/21 20:57 Dose: 40 mg Documented by: Ferrous Sulfate (Ferrous Sulfate 324 Mg Tablet.) 324 mg PO DAILY [facility] Last Admin: 12/14/21 08:13 Dose: Not Given Documented by: Daptomycin 350 mg/ Sodium (Chloride) 57 mls @ 100 mls/hr IV Q24H [facility] Last Infusion: 12/14/21 18:17 Dose: Infused Documented by: Lorazepam (Lorazepam 0.5 Mg Tablet) 0.5 mg PO Q8H PRN PRN Reason: Anxiety Last Admin: 12/13/21 21:38 Dose: 0.5 mg Documented by: Mirtazapine (Mirtazapine 15 Mg Tablet) 15 mg PO DAILY@1999 [facility] Last Admin: 12/13/21 20:57 Dose: 15 mg Documented by: Multivitamins/Vitamin C (Multivitamin Tablet) 1 tab PO DAILY [facility] Last Admin: 12/14/21 08:13 Dose: 1 tab Documented by: Omeprazole (Omeprazole 20 Mg Capsule.) 20 mg PO DAILY@0630 [facility] Last Admin: 12/14/21 06:23 Dose: 20 mg Documented by: Ondansetron HCl (Ondansetron Hcl 4 Mg/2 Ml Vial) 4 mg IVPUSH Q8H PRN PRN Reason: Nausea and Vomiting Oxycodone HCl (Oxycodone Hcl Immed Release 5 Mg Tablet) 5 mg PO Q6H PRN PRN Reason: Breakthrough Pain Last Admin: 12/14/21 12:30 Dose: 5 mg Documented by: Pharmacy Consult (Consult Rx Perform Med Rec) 1 each MISCELLANE ONCE PRN PRN Reason: Consult order Pharmacy Consult (Consult Rx Vancomycin Dosing) 1 each MISCELLANE DAILY PRN PRN Reason: Consult order Polyethylene Glycol (Polyethylene Glycol 3350 17 Gm Powd.Pack) 17 gm PO DAILY [facility] Last Admin: 12/14/21 08:18 Dose: 17 gm Documented by: Sodium Chloride (0.9 % Sodium Chloride Flush 3 Ml Syringe) 3 ml IVFLUSH QSHIFT [facility] Last Admin: 12/14/21 17:37 Dose: 3 ml Documented by: Vitamin D (Cholecalciferol (Vitamin D3) 25 Mcg Tablet) 25 mcg PO DAILY [facility] Last Admin: 12/14/21 08:13 Dose: 25 mcg Documented by: Time Spent With Patient Time: Total time spent is greater than 50% in coordination of care (as documented) at patient's floor/unit and/or counseling patient: Time with patient: less than 15 minutes Quality Stroke Does the patient have a stroke diagnosis?: No VTE Prior VTE?: No VTE Risk Level:: Medical - moderate - high VTE Device Contraindication: Treatment Not Indicated VTE Drug Contraindication: N/A - Med Ordered
[2021-12-14] MEDS: LORazepam 0.5 MG TABLET PO (19:10)
[2021-12-14] MEDS: Mirtazapine 15 MG TABLET PO (20:53)
[2021-12-14] MEDS: Enoxaparin Sodium 40 MG/0.4 ML SYRINGE SUBCUT (20:53)
[2021-12-15 04:00] VITALS: BP 142/62; PULSE 93; RESP 17; TEMP 36.9; O2SAT 100
[2021-12-15] MEDS: oxyCODONE HCl Immed Release 5 MG TABLET PO ×4 (05:00→22:54)
[2021-12-15 05:48] LABS: Hematocrit 26.2 % (37.0-47.0); Hemoglobin 8.3 g/dl (12.0-16.0); Mean Corpuscular HGB Conc 31.7 g/dl (31.0-35.0); Mean Corpuscular Hemoglobin 29.9 pg (27.0-33.0); Mean Corpuscular Volume 94.2 fL (80.0-98.0); Platelet Count 383 X10*3/uL (160-400); Red Blood Count 2.78 X10*6/uL (4.20-5.50); Red Cell Distribution Width 19.4 % (11.0-16.0); White Blood Count 11.4 X10*3/uL (4.8-10.8)
[2021-12-15] MEDS: Omeprazole 20 MG CAPSULE.DR PO (06:24)
[2021-12-15 07:44] VITALS: BP 120/84; PULSE 93; RESP 14; TEMP 36.2; O2SAT 100
[2021-12-15] MEDS: Multivitamin TABLET 1 TAB PO (08:24)
[2021-12-15] MEDS: Cyanocobalamin (Vitamin B-12) 500 MCG TABLET PO (08:24)
[2021-12-15] MEDS: Cholecalciferol (Vitamin D3) 25 MCG TABLET PO (08:24)
[2021-12-15] MEDS: polyethylene glycoL 3350 17 GM POWD.PACK PO (08:24)
[2021-12-15] MEDS: 0.9 % Sodium Chloride Flush 3 ML SYRINGE IVFLUSH ×2 (08:25→17:10)
--- NOTE | 2021-12-15 11:23 | P.PNIM_ITS ---
Subjective Subjective Date of Service: 12/15/21 Interval History: No acute issues overnight; remains afebrile Review of Systems denies chest pain Denies shortness of breath Denies nausea and diarrhea admits to nervousness and anxiety Physical Exam Vital Signs: Vital Signs: Last Vital Signs Temp 97.2 F 12/15/21 07:44 Pulse 93 12/15/21 07:44 Resp 14 12/15/21 07:44 BP 120/84 12/15/21 07:44 Pulse Ox 100 12/15/21 07:44 BMI result Body Mass Index 19.1 Const: Other: awake alert anxious. cachectic; ill-appearing Resp: Other: clear to auscultation bilaterally no rales rhonchi or wheezes Cardio: Other: no S4; positive S1-S2; no S3 or murmurs rubs or gallops GI: Other: soft nontender nondistended normoactive bowel Neuro: Other: cranial nerves 2-12 grossly intact as tested; motor 5/5 all extremities sensation in Extrem: Other: Bilateral weeping edema Objective Data Active Medications Acetaminophen (Acetaminophen 325 Mg Tablet) 650 mg PO Q6H PRN PRN Reason: Pain, Mild (Pain Scale 1-3) Last Admin: 12/14/21 12:30 Dose: 650 mg Documented by: WILL Collagenase (Collagenase Clostridium Hist. 30 Gm Tube) 1 appl TOPICAL DAILY [facility]; Protocol Last Admin: 12/15/21 08:27 Dose: Not Given Documented by: WILL Non-Admin Reason: done by wound nurse Cyanocobalamin (Cyanocobalamin (Vitamin B-12) 500 Mcg Tablet) 500 mcg PO DAILY [facility] Last Admin: 12/15/21 08:24 Dose: 500 mcg Documented by: WILL Docusate Sodium (Docusate Sodium 100 Mg Capsule) 100 mg PO DAILY PRN PRN Reason: Constipation Last Admin: 12/12/21 08:11 Dose: 100 mg Documented by: COTEMA Enoxaparin Sodium (Enoxaparin Sodium 40 Mg/0.4 Ml Syringe) 40 mg SUBCUT Q24H [facility] Last Admin: 12/14/21 20:53 Dose: 40 mg Documented by: ODRISJohn Ferrous Sulfate (Ferrous Sulfate 324 Mg Rey.) 324 mg PO DAILY [facility] Last Admin: 12/15/21 08:28 Dose: Not Given Documented by: WILL Non-Admin Reason: Patient Refused Daptomycin 350 mg/ Sodium (Chloride) 57 mls @ 100 mls/hr IV Q24H [facility] Last Infusion: 12/14/21 18:17 Dose: 0 mls/hr Documented by: WILL Lorazepam (Lorazepam 0.5 Mg Tablet) 0.5 mg PO Q8H PRN PRN Reason: Anxiety Last Admin: 12/14/21 19:10 Dose: 0.5 mg Documented by: JOSETTE Mirtazapine (Mirtazapine 15 Mg Tablet) 15 mg PO DAILY@1999 [facility] Last Admin: 12/14/21 20:53 Dose: 15 mg Documented by: JOSETTE Multivitamins/Vitamin C (Multivitamin Tablet) 1 tab PO DAILY [facility] Last Admin: 12/15/21 08:24 Dose: 1 tab Documented by: WILL Omeprazole (Omeprazole 20 Mg Capsule.Dr) 20 mg PO DAILY@06 [facility] Last Admin: 12/15/21 06:24 Dose: 20 mg Documented by: JOSETTE Ondansetron HCl (Ondansetron Hcl 4 Mg/2 Ml Vial) 4 mg IVPUSH Q8H PRN PRN Reason: Nausea and Vomiting Pharmacy Consult (Consult Rx Perform Med Rec) 1 each MISCELLANE ONCE PRN PRN Reason: Consult order Pharmacy Consult (Consult Rx Vancomycin Dosing) 1 each MISCELLANE DAILY PRN PRN Reason: Consult order Polyethylene Glycol (Polyethylene Glycol 3350 17 Gm Powd.Pack) 17 gm PO DAILY [facility] Last Admin: 12/15/21 08:24 Dose: 17 gm Documented by: WILL Sodium Chloride (0.9 % Sodium Chloride Flush 3 Ml Syringe) 3 ml IVFLUSH QSHIFT [facility] Last Admin: 12/15/21 08:25 Dose: 3 ml Documented by: WILL Vitamin D (Cholecalciferol (Vitamin D3) 25 Mcg Tablet) 25 mcg PO DAILY [facility] Last Admin: 12/15/21 08:24 Dose: 25 mcg Documented by: WILL Labs CBC & Chem 7: 12/15/21 05:25 12/14/21 06:56 Labs: Laboratory Results - last 24 hr 12/15/21 05:25 MCV 94.2 MCH 29.9 MCHC 31.7 RDW 19.4 H Plt Count 383 MPV 10.0 Absolute Nucleated RBC 0.000 Nucleated RBC % (auto) 0.0 Microbiology Microbiology Results: Microbiology 12/12/21 10:14 Blood Culture - Preliminary Blood - Venous Staphylococcus aureus 12/14/21 06:57 Blood Culture - Preliminary Blood - Venous Prelim: GPC Gram Stain only 12/14/21 06:56 Blood Culture - Preliminary Blood - Venous No growth after 24 hours. 12/12/21 10:14 Blood Culture - Preliminary Blood - Venous No growth after 48 hours. Assessment and Plan (1) MSSA bacteremia: Status: Acute (2) Normocytic anemia: Status: Acute (3) Sacral pressure ulcer: Status: Acute (4) Closed intertrochanteric fracture of femur: Status: Acute Plan 61yo F s/p IM nailing for L intertrochanteric femur fx 11/16/21,sent in from Orthopedics office with symptomatic anemia/FTT found to be bacteremic 1. MSSA bacteremia - limited echo showed no vegetation, likely source Skin, recent left hip surgery incision site clean -IV daptomycin, repeat blood cultures in am 2.Mechanical fall - Multiple falls in-hospital, no head injury, recommend to call for assistance when requires help. 3.Anemia, normocytic - status post 1 unit of packed RBC on 12/13/21 due to hematocrit of 22, status post 1u pRBCs 11/29/21 , on iron and B12 replacement, -Follow CBC 4.Stage 3 sacral pressure ulcer - continue nutritional supplements, triad cream frequent position change , healing well 5.Post op IMN L intertrochanteric fx on 11/16/21 - continue VTE ppx 4 wk postop, incision clean, continue oxycodone for pain control, post fall x-rays 12/07 were obtained which are negative for new fractures, IM nail is in good position without migration ortho recommended 4 week follow-up in the office, continue VTE prophylaxis since patient mostly in bed. 6.Severe protein/calorie malnutrition/# FTT - continue protein supplements, Guille powder - CT chest, abdomen and pelvis showed no evidence of malignancy - Psych diagnosed obsessive-compulsive disorder and anxiety. - spoke with patient and discussed importance of good nutrition 7. anxiety - on mirtazapine and as needed Ativan started by psychiatry # VTE ppx - [facility] Need continued inpatient care for persistent MSSA bacteremia requiring IV antibiotics Quality Stroke Does the patient have a stroke diagnosis?: No VTE Prior VTE?: No VTE Risk Level:: Medical - moderate - high VTE Device Contraindication: Treatment Not Indicated VTE Drug Contraindication: N/A - Med Ordered
[2021-12-15] MEDS: Acetaminophen 325 MG TABLET 650 MG PO ×2 (11:41→17:08)
[2021-12-15] MEDS: LORazepam 0.5 MG TABLET PO ×2 (11:42→19:16)
[2021-12-15 11:59] VITALS: BP 115/74; PULSE 106; RESP 15; TEMP 36.2; O2SAT 98
[2021-12-15 15:32] VITALS: BP 139/96; PULSE 104; RESP 20; TEMP 36.6; O2SAT 100
[2021-12-15 19:41] VITALS: BP 106/55; PULSE 61; RESP 18; TEMP 36.7; O2SAT 95
[2021-12-15] MEDS: Mirtazapine 15 MG TABLET PO (20:30)
[2021-12-15] MEDS: Enoxaparin Sodium 40 MG/0.4 ML SYRINGE SUBCUT (20:30)
[2021-12-15 23:35] VITALS: BP 153/84; PULSE 99; RESP 18; TEMP 36.9; O2SAT 98
[2021-12-16 03:17] VITALS: BP 146/76; PULSE 108; RESP 18; TEMP 36.8; O2SAT 100
[2021-12-16] MEDS: oxyCODONE HCl Immed Release 5 MG TABLET PO ×4 (03:26→17:22)
[2021-12-16] MEDS: LORazepam 0.5 MG TABLET PO ×3 (03:36→20:24)
[2021-12-16] MEDS: Omeprazole 20 MG CAPSULE.DR PO (05:46)
[2021-12-16 06:16] LABS: Hematocrit 23.3 % (37.0-47.0); Hemoglobin 7.4 g/dl (12.0-16.0); Mean Corpuscular HGB Conc 31.8 g/dl (31.0-35.0); Mean Corpuscular Hemoglobin 30.8 pg (27.0-33.0); Mean Corpuscular Volume 97.1 fL (80.0-98.0); Mean Platelet Volume 10.1 fL (9.4-12.3); Platelet Count 387 X10*3/uL (160-400); Red Cell Distribution Width 19.9 % (11.0-16.0); White Blood Count 11.9 X10*3/uL (4.8-10.8)
[2021-12-16 06:43] LABS: Alanine Aminotransferase < 6 U/L (0-31); Albumin Level 1.4 g/dL (3.5-5.0); Alkaline Phosphatase 168 U/L (39-117); Anion Gap 9 (12-20); Aspartate Amino Transferase 17 U/L (5-31); Bilirubin Total 0.6 mg/dL (0.0-1.0); Blood Urea Nitrogen 28 mg/dL (9-16); Calcium 7.6 mg/dL (8.4-10.2); Carbon Dioxide 31 mmol/L (22-29); Chloride 106 mmol/L (96-108); Creatinine Clr Calc Pharmacy 72.6; Estimated Glomerular Filt Rate > 60; Glucose Fasting 68 mg/dL (60-99); Potassium 4.2 mmol/L (3.3-5.1); Sodium 142 mmol/L (135-145); Total Protein 3.9 g/dL (6.5-8.0)
[2021-12-16 07:04] LABS: Band Neutrophils Percent 9 % (3-5); Lymphocytes Absolute Manual 0.2 X10*3/uL (1.2-4.9); Lymphocytes Percent Manual 2 % (20-40); Metamyelocytes Absolute 0.5 X10*3/uL; Metamyelocytes Percent 4 %; Monocytes Absolute Manual 0.1 X10*3/uL (0.1-1.2); Monocytes Percent Manual 1 % (2-11); Myelocytes Absolute 0.1 X10*/uL; Myelocytes Percent 1 %; Neutrophils Absolute Manual 10.9 X10*3/uL (2.0-8.3); Neutrophils Percent Manual 83 % (45-73)
[2021-12-16 07:05] LABS: Platelet Estimate NORMAL (NORMAL); Platelet Morphology Comment NORMAL; RBC Morphology NOTED
[2021-12-16 07:06] LABS: Acanthocytes 2+ (3-5) /OIF; Burr Cells 1+ (0-2) /OIF; Ovalocytes 1+ (5-14) /OIF; Schistocytes 1+ (0-2) /OIF
[2021-12-16 07:07] LABS: Hypochromasia 1+ (5-14) /OIF; Macrocytosis 1+ (5-14) /OIF
[2021-12-16 07:22] VITALS: BP 124/56; PULSE 108; RESP 20; TEMP 37.1; O2SAT 100
[2021-12-16] MEDS: Cholecalciferol (Vitamin D3) 25 MCG TABLET PO (08:44)
[2021-12-16] MEDS: Cyanocobalamin (Vitamin B-12) 500 MCG TABLET PO (08:44)
[2021-12-16] MEDS: Multivitamin TABLET 1 TAB PO (08:44)
[2021-12-16] MEDS: Ferrous Sulfate 324 MG TABLET.DR PO (08:44)
[2021-12-16] MEDS: polyethylene glycoL 3350 17 GM POWD.PACK PO (08:45)
--- NOTE | 2021-12-16 12:53 | P.PNIM_ITS ---
Subjective Subjective Date of Service: 12/16/21 Interval History: No acute issues overnight; remains afebrile Review of Systems denies chest pain Denies shortness of breath Denies nausea and diarrhea admits to nervousness and anxiety Physical Exam Vital Signs: Vital Signs: Last Vital Signs Temp 98.8 F 12/16/21 07:22 Pulse 108 H 12/16/21 07:22 Resp 20 12/16/21 07:22 BP 124/56 L 12/16/21 07:22 Pulse Ox 100 12/16/21 07:22 BMI result Body Mass Index 19.1 Const: Other: awake alert anxious. cachectic; ill-appearing Resp: Other: clear to auscultation bilaterally no rales rhonchi or wheezes Cardio: Other: no S4; positive S1-S2; no S3 or murmurs rubs or gallops GI: Other: soft nontender nondistended normoactive bowel Neuro: Other: cranial nerves 2-12 grossly intact as tested; motor 5/5 all extremities sensation in Extrem: Other: Bilateral weeping edema Objective Data Active Medications Acetaminophen (Acetaminophen 325 Mg Tablet) 650 mg PO Q6H PRN PRN Reason: Pain, Mild (Pain Scale 1-3) Last Admin: 12/15/21 17:08 Dose: 650 mg Documented by: WILL Collagenase (Collagenase Clostridium Hist. 30 Gm Tube) 1 appl TOPICAL DAILY [facility]; Protocol Last Admin: 12/16/21 12:34 Dose: Not Given Documented by: PER Non-Admin Reason: Patient Refused Cyanocobalamin (Cyanocobalamin (Vitamin B-12) 500 Mcg Tablet) 500 mcg PO DAILY [facility] Last Admin: 12/16/21 08:44 Dose: 500 mcg Documented by: PER Docusate Sodium (Docusate Sodium 100 Mg Capsule) 100 mg PO DAILY PRN PRN Reason: Constipation Last Admin: 12/12/21 08:11 Dose: 100 mg Documented by: COTEMA Enoxaparin Sodium (Enoxaparin Sodium 40 Mg/0.4 Ml Syringe) 40 mg SUBCUT Q24H [facility] Last Admin: 12/15/21 20:30 Dose: 40 mg Documented by: JOSETTE Ferrous Sulfate (Ferrous Sulfate 324 Mg Rey.) 324 mg PO DAILY [facility] Last Admin: 12/16/21 08:44 Dose: 324 mg Documented by: PER Daptomycin 350 mg/ Sodium (Chloride) 57 mls @ 100 mls/hr IV Q24H [facility] Last Infusion: 12/15/21 18:24 Dose: 0 mls/hr Documented by: WILL Lorazepam (Lorazepam 0.5 Mg Tablet) 0.5 mg PO Q8H PRN PRN Reason: Anxiety Last Admin: 12/16/21 12:30 Dose: 0.5 mg Documented by: PER Mirtazapine (Mirtazapine 15 Mg Tablet) 15 mg PO DAILY@1999 [facility] Last Admin: 12/15/21 20:30 Dose: 15 mg Documented by: JOSETTE Multivitamins/Vitamin C (Multivitamin Tablet) 1 tab PO DAILY [facility] Last Admin: 12/16/21 08:44 Dose: 1 tab Documented by: PER Omeprazole (Omeprazole 20 Mg Capsule.Dr) 20 mg PO DAILY@06 [facility] Last Admin: 12/16/21 05:46 Dose: 20 mg Documented by: JOSETTE Ondansetron HCl (Ondansetron Hcl 4 Mg/2 Ml Vial) 4 mg IVPUSH Q8H PRN PRN Reason: Nausea and Vomiting Oxycodone HCl (Oxycodone Hcl Immed Release 5 Mg Tablet) 5 mg PO Q4H PRN PRN Reason: Pain, Moderate (Pain Scale 4-6 Last Admin: 12/16/21 12:30 Dose: 5 mg Documented by: PER Pharmacy Consult (Consult Rx Perform Med Rec) 1 each MISCELLANE ONCE PRN PRN Reason: Consult order Pharmacy Consult (Consult Rx Vancomycin Dosing) 1 each MISCELLANE DAILY PRN PRN Reason: Consult order Polyethylene Glycol (Polyethylene Glycol 3350 17 Gm Powd.Pack) 17 gm PO DAILY [facility] Last Admin: 12/16/21 08:45 Dose: 17 gm Documented by: PER Sodium Chloride (0.9 % Sodium Chloride Flush 3 Ml Syringe) 3 ml IVFLUSH QSHIFT [facility] Last Admin: 12/16/21 08:48 Dose: Not Given Documented by: PER Non-Admin Reason: No Access Sodium Chloride (0.9 % Sodium Chloride Flush 10 Ml Syringe) 5 ml IVFLUSH TID [facility] Vitamin D (Cholecalciferol (Vitamin D3) 25 Mcg Tablet) 25 mcg PO DAILY [facility] Last Admin: 12/16/21 08:44 Dose: 25 mcg Documented by: PER Labs CBC & Chem 7: 12/16/21 05:52 12/16/21 05:52 Labs: Laboratory Results - last 24 hr 12/16/21 12/16/21 05:52 05:52 MCV 97.1 MCH 30.8 MCHC 31.8 RDW 19.9 H Plt Count 387 MPV 10.1 Immature Gran % (Auto) Cancelled Neut % (Auto) Cancelled Lymph % (Auto) Cancelled [place] % (Auto) Cancelled Eos % (Auto) Cancelled Baso % (Auto) Cancelled Lymph # (Auto) Cancelled [place] # (Auto) Cancelled Eos # (Auto) Cancelled Baso # (Auto) Cancelled Abs Immat Gran (auto) Cancelled Absolute Neuts (auto) Cancelled Absolute Nucleated RBC 0.000 Nucleated RBC % (auto) 0.0 Neutrophils % (Manual) 83 H Band Neutrophils % 9 H Lymphocytes % (Manual) 2 L Monocytes % (Manual) 1 L Metamyelocytes % 4 Myelocytes % 1 Abs Neuts (Manual) 10.9 H Lymphocytes # (Manual) 0.2 L Monocytes # (Manual) 0.1 Metamyelocytes # 0.5 Myelocytes # 0.1 Platelet Estimate NORMAL Plt Morphology Comment NORMAL RBC Morphology NOTED Hypochromasia 1+ (5-14) Macrocytosis 1+ (5-14) Ovalocytes 1+ (5-14) Maria Eugenia Cells 1+ (0-2) Acanthocytes (Spur) 2+ (3-5) Schistocytes 1+ (0-2) Anion Gap 9 L Estim Creat Clear Calc 72.6 Estimated GFR > 60 Fasting Glucose 68 Calcium 7.6 L Total Bilirubin 0.6 AST 17 ALT < 6 Alkaline Phosphatase 168 H Total Protein 3.9 L Albumin 1.4 L Microbiology Microbiology Results: Microbiology 12/15/21 Unknown Gram Stain - Final Leg Right Routine Culture - Preliminary No growth to date. 12/14/21 06:57 Blood Culture - Final Blood - Venous Staphylococcus aureus 12/14/21 06:56 Blood Culture - Final Blood - Venous Staphylococcus aureus 12/12/21 10:14 Blood Culture - Final Blood - Venous Staphylococcus aureus Assessment and Plan (1) MSSA bacteremia: Status: Acute (2) Normocytic anemia: Status: Acute (3) Sacral pressure ulcer: Status: Acute (4) Cachexia: Status: Acute Plan 61yo F s/p IM nailing for L intertrochanteric femur fx 11/16/21,sent in from Orthopedics office with symptomatic anemia/FTT found to be bacteremic 1. MSSA bacteremia - limited echo showed no vegetation -IV daptomycin; repeat blood cultures 11/09 GPC - will discuss with ID - will need Mid Line for continued IV ABTX; aware of pos BC but necessity of IVABTX > risk of midline in backdrop of positive cultures 2.Mechanical fall - Multiple falls in-hospital, no head injury, recommend to call for assistance when requires help. 3.Anemia, normocytic -stable - follow clinically 4.Stage 3 sacral pressure ulcer - continue nutritional supplements, triad cream frequent position change , healing well 5.Post op IMN L intertrochanteric fx on 11/16/21 - continue VTE ppx 4 wk postop, incision clean, continue oxycodone for pain control, post fall x-rays 12/07 were obtained which are negative for new fractures, IM nail is in good position without migration ortho recommended 4 week follow-up in the office, continue VTE prophylaxis since patient mostly in bed. 6.Severe protein/calorie malnutrition/# FTT - continue protein supplements, Guille powder 7. anxiety - on mirtazapine and as needed Ativan started by psychiatry # VTE ppx - LMWH Need continued inpatient care for persistent MSSA bacteremia requiring IV antibiotics; source not yet identified Quality Stroke Does the patient have a stroke diagnosis?: No VTE Prior VTE?: No VTE Risk Level:: Medical - moderate - high VTE Device Contraindication: Treatment Not Indicated VTE Drug Contraindication: N/A - Med Ordered
--- NOTE | 2021-12-16 13:08 | HO.MIDLINE_ITS ---
PICC Line Insertion MIDLINE INSERTION Diagnosis: BACTEREMIA Indication: FRAIL SKIN, POOR IV ACCESS; NEEDS IV ACCESS Pertinent Labs: REVIEWED; CLEARANCE FOR MIDLINE INSERTION OBTAINED FROM HOSPITALIST AND STAGE SETTING PAINTER APPRENTICE Technique: Using sterile technique including cap and mask, glove and drape, the [LEFT] arm was prepped and draped in the usual sterile fashion of full barrier technique with CHG. Using ultrasound guidance, [BRACHIAL] vein access was obtained IN SINGLE ATTEMPT BY THIS RN. A SINGLE LUMEN, NONPASV, (20G X 10CM) MIDLINE was positioned. The procedure was performed in [S-272]. Ultrasound was used to document vein patency and for needle entry. A formal ultrasound picture was recorded. Vascular Sprinkling System Irrigator has released the line for use and it is currently dressed with a StatLock, Tegaderm, and CHG disc. Verification has been performed for blood return and line patency. Arm Circumference: [16.5 CM] Equipment: [Care Thread POWERGLIDE PRO] Catheter Type: [SINGLE LUMEN, NON-PASV, (20G X 10CM)] Lot #: [[id number]]
--- NOTE | 2021-12-16 15:11 | MHC.CLN ---
F/U DIET=REGULAR. SUPPLEMENT ENSURE TID AND ABDIEL BID TO PROVIDE ADDITIONAL 1210 KCALS, 65 G PROTEIN. PATIENT IS MODERATELY MALNOURISHED AND HAS STAGE III SACRAL WOUND. PO INTAKE VARIABLE. STATED THAT DRINKING SUPPLEMENT. MIDLINE PLACED 12/16 FOR BACTEREMIA. MONITOR PO INTAKE AND SUPPLEMENT ACCEPTANCE CLOSELY.
[2021-12-16 16:00] VITALS: BP 133/68; PULSE 106; RESP 17; TEMP 37.6; O2SAT 100
--- NOTE | 2021-12-16 16:35 | MHC.CM.PN ---
nurse case worker note electronic medical record reviewed , patient had midline placement today for iv abx , i checked to see if she had her medicare activted with registration and she has not , i checked with jimenez financial counselor and she guy not think it would be up untjanuary , also medicaode has been activare and listed as [facility] , patient needs to chhocse a health plan , jimenez will try to call ir see here and give her the list of insruance plans discharge plan str - clinical updates gievn to facilities , per hospitlaist covering today , patient will not be ready for dischagre until sunday
[2021-12-16] MEDS: Acetaminophen 325 MG TABLET 650 MG PO (17:22)
[2021-12-16 19:24] VITALS: BP 127/76; PULSE 99; RESP 14; TEMP 36.3; O2SAT 99
[2021-12-16] MEDS: Enoxaparin Sodium 40 MG/0.4 ML SYRINGE SUBCUT (20:19)
[2021-12-16] MEDS: Mirtazapine 15 MG TABLET PO (20:19)
[2021-12-16] MEDS: 0.9 % Sodium Chloride Flush 3 ML SYRINGE IVFLUSH (20:24)
[2021-12-16 23:19] VITALS: BP 132/80; PULSE 93; RESP 18; TEMP 36.6; O2SAT 98
[2021-12-17 07:02] VITALS: BP 108/52; PULSE 115; RESP 18; TEMP 36.1; O2SAT 100
[2021-12-17] MEDS: Cholecalciferol (Vitamin D3) 25 MCG TABLET PO (08:13)
[2021-12-17] MEDS: oxyCODONE HCl Immed Release 5 MG TABLET PO ×4 (08:13→21:18)
[2021-12-17] MEDS: Acetaminophen 325 MG TABLET 650 MG PO ×2 (08:13→15:13)
[2021-12-17] MEDS: 0.9 % Sodium Chloride Flush 10 ML SYRINGE 5 ML IVFLUSH ×2 (08:14→15:24)
[2021-12-17] MEDS: Multivitamin TABLET 1 TAB PO (08:14)
[2021-12-17] MEDS: Cyanocobalamin (Vitamin B-12) 500 MCG TABLET PO (08:14)
[2021-12-17] MEDS: Ferrous Sulfate 324 MG TABLET.DR PO (08:14)
[2021-12-17] MEDS: 0.9 % Sodium Chloride Flush 3 ML SYRINGE IVFLUSH ×3 (08:14→20:15)
[2021-12-17] MEDS: polyethylene glycoL 3350 17 GM POWD.PACK PO (08:19)
[2021-12-17] MEDS: LORazepam 0.5 MG TABLET PO ×2 (08:22→15:24)
[2021-12-17] MEDS: Collagenase Clostridium Hist. 30 GM TUBE 1 APPL TOPICAL (11:15)
[2021-12-17 12:00] VITALS: BP 94/51; PULSE 102; RESP 18; TEMP 36.1; O2SAT 100
--- NOTE | 2021-12-17 12:45 | P.PNIM_ITS ---
Subjective Subjective Date of Service: 12/17/21 Interval History: No acute issues overnight; remains afebrile.Amb with walker and assist Review of Systems denies chest pain Denies shortness of breath Denies nausea and diarrhea admits to nervousness and anxiety Physical Exam Vital Signs: Vital Signs: Last Vital Signs Temp 97.0 F 12/17/21 07:02 Pulse 115 H 12/17/21 07:02 Resp 18 12/17/21 07:02 BP 108/52 L 12/17/21 07:02 Pulse Ox 100 12/17/21 07:02 BMI result Body Mass Index 19.1 Const: Other: awake alert anxious. cachectic; ill-appearing Resp: Other: clear to auscultation bilaterally no rales rhonchi or wheezes Cardio: Other: no S4; positive S1-S2; no S3 or murmurs rubs or gallops GI: Other: soft nontender nondistended normoactive bowel Neuro: Other: cranial nerves 2-12 grossly intact as tested; motor 5/5 all extremities sensation in Extrem: Other: Bilateral weeping edema Objective Data Active Medications Acetaminophen (Acetaminophen 325 Mg Tablet) 650 mg PO Q6H PRN PRN Reason: Pain, Mild (Pain Scale 1-3) Last Admin: 12/17/21 08:13 Dose: 650 mg Documented by: TONG Collagenase (Collagenase Clostridium Hist. 30 Gm Tube) 1 appl TOPICAL DAILY [facility]; Protocol Last Admin: 12/17/21 11:15 Dose: 1 appl Documented by: TONG Cyanocobalamin (Cyanocobalamin (Vitamin B-12) 500 Mcg Tablet) 500 mcg PO DAILY [facility] Last Admin: 12/17/21 08:14 Dose: 500 mcg Documented by: TONG Docusate Sodium (Docusate Sodium 100 Mg Capsule) 100 mg PO DAILY PRN PRN Reason: Constipation Last Admin: 12/12/21 08:11 Dose: 100 mg Documented by: COTEMA Enoxaparin Sodium (Enoxaparin Sodium 40 Mg/0.4 Ml Syringe) 40 mg SUBCUT Q24H [facility] Last Admin: 12/16/21 20:19 Dose: 40 mg Documented by: MATT Ferrous Sulfate (Ferrous Sulfate 324 Mg Tablet.Dr) 324 mg PO DAILY [facility] Last Admin: 12/17/21 08:14 Dose: 324 mg Documented by: TONG Daptomycin 350 mg/ Sodium (Chloride) 57 mls @ 100 mls/hr IV Q24H [facility] Last Infusion: 12/16/21 18:08 Dose: 0 mls/hr Documented by: PRABHJOT Lorazepam (Lorazepam 0.5 Mg Tablet) 0.5 mg PO Q8H PRN PRN Reason: Anxiety Last Admin: 12/17/21 08:22 Dose: 0.5 mg Documented by: TONG Mirtazapine (Mirtazapine 15 Mg Tablet) 15 mg PO DAILY@1999 [facility] Last Admin: 12/16/21 20:19 Dose: 15 mg Documented by: MATT Multivitamins/Vitamin C (Multivitamin Tablet) 1 tab PO DAILY [facility] Last Admin: 12/17/21 08:14 Dose: 1 tab Documented by: TONG Omeprazole (Omeprazole 20 Mg Capsule.Dr) 20 mg PO DAILY@0630 [facility] Last Admin: 12/17/21 06:01 Dose: Not Given Documented by: MATT Non-Admin Reason: Patient Asleep Ondansetron HCl (Ondansetron Hcl 4 Mg/2 Ml Vial) 4 mg IVPUSH Q8H PRN PRN Reason: Nausea and Vomiting Oxycodone HCl (Oxycodone Hcl Immed Release 5 Mg Tablet) 5 mg PO Q4H PRN PRN Reason: Pain, Moderate (Pain Scale 4-6 Last Admin: 12/17/21 12:25 Dose: 5 mg Documented by: TONG Pharmacy Consult (Consult Rx Perform Med Rec) 1 each MISCELLANE ONCE PRN PRN Reason: Consult order Pharmacy Consult (Consult Rx Vancomycin Dosing) 1 each MISCELLANE DAILY PRN PRN Reason: Consult order Polyethylene Glycol (Polyethylene Glycol 3350 17 Gm Powd.Pack) 17 gm PO DAILY [facility] Last Admin: 12/17/21 08:19 Dose: 17 gm Documented by: TONG Sodium Chloride (0.9 % Sodium Chloride Flush 3 Ml Syringe) 3 ml IVFLUSH QSHIFT [facility] Last Admin: 12/17/21 08:14 Dose: 3 ml Documented by: TONG Sodium Chloride (0.9 % Sodium Chloride Flush 10 Ml Syringe) 5 ml IVFLUSH TID [facility] Last Admin: 12/17/21 08:14 Dose: 5 ml Documented by: TONG Vitamin D (Cholecalciferol (Vitamin D3) 25 Mcg Tablet) 25 mcg PO DAILY [facility] Last Admin: 12/17/21 08:13 Dose: 25 mcg Documented by: TONG Labs CBC & Chem 7: 12/16/21 05:52 12/16/21 05:52 Microbiology Microbiology Results: Microbiology 12/12/21 10:14 Blood Culture - Final Blood - Venous No growth after 5 days. 12/15/21 Unknown Gram Stain - Final Leg Right Routine Culture - Final No growth after 2 days 12/14/21 06:57 Blood Culture - Final Blood - Venous Staphylococcus aureus 12/14/21 06:56 Blood Culture - Final Blood - Venous Staphylococcus aureus 12/12/21 10:14 Blood Culture - Final Blood - Venous Staphylococcus aureus Assessment and Plan (1) MSSA bacteremia: Status: Acute (2) Symptomatic anemia: Status: Acute (3) Sacral pressure ulcer: Status: Acute (4) Closed intertrochanteric fracture of femur: Status: Acute Plan 61yo F s/p IM nailing for L intertrochanteric femur fx 11/16/21,sent in from Orthopedics office with symptomatic anemia/FTT found to be bacteremic 1. MSSA bacteremia - limited echo showed no vegetation -IV daptomycin; repeat blood cultures / GPC;repeat in am - will discuss with ID;query sourse 2.Anemia, normocytic -stable - follow clinically 4.Stage 3 sacral pressure ulcer - continue nutritional supplements, triad cream frequent position change , healing wel -see wound care notes 5.Post op IMN L intertrochanteric fx on 11/16/21 - continue VTE ppx 4 wk postop, incision clean, continue oxycodone for pain control, post fall x-rays / were obtained which are negative for new fractures, IM nail is in good position without migration ortho recommended 4 week follow-up in the office, continue VTE prophylaxis since patient mostly in bed. 6.Severe protein/calorie malnutrition/# FTT - continue protein supplements, Guille powder 7. anxiety - on mirtazapine and as needed Ativan started by psychiatry # VTE ppx - LMWH Need continued inpatient care for persistent MSSA bacteremia requiring IV antibiotics; source not yet identified. Reculture in am Quality Stroke Does the patient have a stroke diagnosis?: No VTE Prior VTE?: No VTE Risk Level:: Medical - moderate - high VTE Device Contraindication: Treatment Not Indicated VTE Drug Contraindication: N/A - Med Ordered
[2021-12-17 15:20] VITALS: BP 143/65; PULSE 92; RESP 18; TEMP 37.7; O2SAT 98
[2021-12-17 19:21] VITALS: BP 131/66; PULSE 96; RESP 17; TEMP 37.4; O2SAT 99
[2021-12-17] MEDS: Enoxaparin Sodium 40 MG/0.4 ML SYRINGE SUBCUT (20:14)
[2021-12-17] MEDS: Mirtazapine 15 MG TABLET PO (20:14)
[2021-12-17 23:34] VITALS: BP 105/60; PULSE 94; RESP 16; TEMP 36.8; O2SAT 100
[2021-12-18] VITALS (10 sets, daily range): BP systolic 116–142; BP diastolic 52–86; PULSE 72–96; RESP 15–20; TEMP 36.2–37.4; O2SAT 97–100
[2021-12-18] MEDS: Omeprazole 20 MG CAPSULE.DR PO (03:36)
[2021-12-18] MEDS: oxyCODONE HCl Immed Release 5 MG TABLET PO ×5 (03:36→23:05)
[2021-12-18 06:25] LABS: MANUAL DIFF FLAG NO
[2021-12-18 06:50] LABS: Basophils Percent Auto 0.3 % (0-2); Eosinophils Absolute Auto 0.1 X10*3/uL (0.0-0.4); Eosinophils Percent Auto 1.3 % (0-4); Hematocrit 21.4 % (37.0-47.0); Imm Gran Pct Auto 3.4 % (0.0-0.4); Lymphocytes Absolute Auto 1.1 X10*3/uL (1.2-4.9); Lymphocytes Percent Auto 12.4 % (20-40); Mean Corpuscular HGB Conc 30.4 g/dl (31.0-35.0); Mean Corpuscular Hemoglobin 29.8 pg (27.0-33.0); Mean Corpuscular Volume 98.2 fL (80.0-98.0); Mean Platelet Volume 10.1 fL (9.4-12.3); Monocytes Absolute Auto 0.6 X10*3/uL (0.1-1.2); Monocytes Percent Auto 7.2 % (2-11); Neutrophils Absolute Auto 6.6 x10*3/uL (2.0-8.3); Neutrophils Percent Auto 75.4 % (45-73); Platelet Count 413 X10*3/uL (160-400); Red Blood Count 2.18 X10*6/uL (4.20-5.50); Red Cell Distribution Width 19.9 % (11.0-16.0); White Blood Count 8.8 X10*3/uL (4.8-10.8)
[2021-12-18 07:06] LABS: Alanine Aminotransferase < 6 U/L (0-31); Albumin Level 1.5 g/dL (3.5-5.0); Alkaline Phosphatase 165 U/L (39-117); Anion Gap 9 (12-20); Aspartate Amino Transferase 20 U/L (5-31); Bilirubin Total 0.2 mg/dL (0.0-1.0); Blood Urea Nitrogen 28 mg/dL (9-16); Calcium 7.4 mg/dL (8.4-10.2); Carbon Dioxide 28 mmol/L (22-29); Chloride 106 mmol/L (96-108); Creatinine Clr Calc Pharmacy 75.9; Estimated Glomerular Filt Rate > 60; Glucose Fasting 65 mg/dL (60-99); Sodium 139 mmol/L (135-145); Total Protein 4.2 g/dL (6.5-8.0)
[2021-12-18 07:19] LABS: Hemoglobin 6.5 g/dl (12.0-16.0)
[2021-12-18] MEDS: Cholecalciferol (Vitamin D3) 25 MCG TABLET PO (08:18)
[2021-12-18] MEDS: Acetaminophen 325 MG TABLET 650 MG PO ×3 (08:19→20:08)
[2021-12-18] MEDS: 0.9 % Sodium Chloride Flush 3 ML SYRINGE IVFLUSH ×2 (08:19→23:02)
[2021-12-18] MEDS: 0.9 % Sodium Chloride Flush 10 ML SYRINGE 5 ML IVFLUSH ×3 (08:19→20:07)
[2021-12-18] MEDS: Cyanocobalamin (Vitamin B-12) 500 MCG TABLET PO (08:19)
[2021-12-18] MEDS: Multivitamin TABLET 1 TAB PO (08:19)
[2021-12-18] MEDS: polyethylene glycoL 3350 17 GM POWD.PACK PO (08:20)
--- NOTE | 2021-12-18 10:35 | P.PNIM_ITS ---
Subjective Subjective Date of Service: 12/18/21 Interval History: No acute issues overnight; remains afebrile.Amb with walker and assist; still not eating substantially Review of Systems denies chest pain Denies shortness of breath Denies nausea and diarrhea admits to nervousness and anxiety Physical Exam Vital Signs: Vital Signs: Last Vital Signs Temp 97.2 F 12/18/21 10:31 Pulse 91 12/18/21 10:31 Resp 16 12/18/21 10:31 BP 129/64 12/18/21 10:31 Pulse Ox 97 12/18/21 07:50 BMI result Body Mass Index 19.1 Const: Other: awake alert anxious. cachectic; ill-appearing Resp: Other: clear to auscultation bilaterally no rales rhonchi or wheezes Cardio: Other: no S4; positive S1-S2; no S3 or murmurs rubs or gallops GI: Other: soft nontender nondistended normoactive bowel Neuro: Other: cranial nerves 2-12 grossly intact as tested; motor 5/5 all extremities sensation in Extrem: Other: Bilateral weeping edema Objective Data Active Medications Acetaminophen (Acetaminophen 325 Mg Tablet) 650 mg PO Q6H PRN PRN Reason: Pain, Mild (Pain Scale 1-3) Last Admin: 12/18/21 08:19 Dose: 650 mg Documented by: TONG Collagenase (Collagenase Clostridium Hist. 30 Gm Tube) 1 appl TOPICAL DAILY [facility]; Protocol Last Admin: 12/17/21 11:15 Dose: 1 appl Documented by: TONG Cyanocobalamin (Cyanocobalamin (Vitamin B-12) 500 Mcg Tablet) 500 mcg PO DAILY [facility] Last Admin: 12/18/21 08:19 Dose: 500 mcg Documented by: TONG Docusate Sodium (Docusate Sodium 100 Mg Capsule) 100 mg PO DAILY PRN PRN Reason: Constipation Last Admin: 12/12/21 08:11 Dose: 100 mg Documented by: COTEMA Enoxaparin Sodium (Enoxaparin Sodium 40 Mg/0.4 Ml Syringe) 40 mg SUBCUT Q24H [facility] Last Admin: 12/17/21 20:14 Dose: 40 mg Documented by: MATT Ferrous Sulfate (Ferrous Sulfate 324 Mg Tablet.) 324 mg PO DAILY [facility] Last Admin: 12/18/21 08:20 Dose: Not Given Documented by: TONG Non-Admin Reason: Patient Refused Daptomycin 350 mg/ Sodium (Chloride) 57 mls @ 100 mls/hr IV Q24H [facility] Last Infusion: 12/17/21 18:41 Dose: 0 mls/hr Documented by: TONG Mirtazapine (Mirtazapine 15 Mg Tablet) 15 mg PO DAILY@2000 [facility] Last Admin: 12/17/21 20:14 Dose: 15 mg Documented by: MATT Multivitamins/Vitamin C (Multivitamin Tablet) 1 tab PO DAILY [facility] Last Admin: 12/18/21 08:19 Dose: 1 tab Documented by: TONG Omeprazole (Omeprazole 20 Mg Capsule.Dr) 20 mg PO DAILY@0630 [facility] Last Admin: 12/18/21 03:36 Dose: 20 mg Documented by: MATT Ondansetron HCl (Ondansetron Hcl 4 Mg/2 Ml Vial) 4 mg IVPUSH Q8H PRN PRN Reason: Nausea and Vomiting Oxycodone HCl (Oxycodone Hcl Immed Release 5 Mg Tablet) 5 mg PO Q4H PRN PRN Reason: Pain, Moderate (Pain Scale 4-6 Last Admin: 12/18/21 08:18 Dose: 5 mg Documented by: TONG Pharmacy Consult (Consult Rx Perform Med Rec) 1 each MISCELLANE ONCE PRN PRN Reason: Consult order Pharmacy Consult (Consult Rx Vancomycin Dosing) 1 each MISCELLANE DAILY PRN PRN Reason: Consult order Polyethylene Glycol (Polyethylene Glycol 3350 17 Gm Powd.Pack) 17 gm PO DAILY [facility] Last Admin: 12/18/21 08:20 Dose: 17 gm Documented by: TONG Sodium Chloride (0.9 % Sodium Chloride Flush 3 Ml Syringe) 3 ml IVFLUSH QSHIFT [facility] Last Admin: 12/18/21 08:19 Dose: 3 ml Documented by: TONG Sodium Chloride (0.9 % Sodium Chloride Flush 10 Ml Syringe) 5 ml IVFLUSH TID [facility] Last Admin: 12/18/21 08:19 Dose: 5 ml Documented by: TONG Vitamin D (Cholecalciferol (Vitamin D3) 25 Mcg Tablet) 25 mcg PO DAILY [facility] Last Admin: 12/18/21 08:18 Dose: 25 mcg Documented by: TONG Labs CBC & Chem 7: 12/18/21 06:15 12/18/21 06:15 Labs: Laboratory Results - last 24 hr 12/18/21 12/18/21 12/18/21 06:15 06:15 08:11 MCV 98.2 H MCH 29.8 MCHC 30.4 L RDW 19.9 H Plt Count 413 H MPV 10.1 Immature Gran % (Auto) 3.4 H Neut % (Auto) 75.4 H Lymph % (Auto) 12.4 L [place] % (Auto) 7.2 Eos % (Auto) 1.3 Baso % (Auto) 0.3 Lymph # (Auto) 1.1 L [place] # (Auto) 0.6 Eos # (Auto) 0.1 Baso # (Auto) 0.0 Abs Immat Gran (auto) 0.30 H Absolute Neuts (auto) 6.6 Absolute Nucleated RBC 0.000 Nucleated RBC % (auto) 0.0 Anion Gap 9 L Estim Creat Clear Calc 75.9 Estimated GFR > 60 Fasting Glucose 65 Calcium 7.4 L Total Bilirubin 0.2 AST 20 ALT < 6 Alkaline Phosphatase 165 H Total Protein 4.2 L Albumin 1.5 L Blood Type O Positive Antibody Screen NEGATIVE Crossmatch See Detail Microbiology Microbiology Results: Microbiology 12/12/21 10:14 Blood Culture - Final Blood - Venous No growth after 5 days. 12/15/21 Unknown Gram Stain - Final Leg Right Routine Culture - Final No growth after 2 days Assessment and Plan (1) MSSA bacteremia: Status: Acute (2) Normocytic anemia: Status: Acute (3) Sacral pressure ulcer: Status: Acute (4) Cachexia: Status: Acute Plan 61yo F s/p IM nailing for L intertrochanteric femur fx 11/16/21,sent in from Orthopedics office with symptomatic anemia/FTT found to be bacteremic 1. MSSA bacteremia - limited echo showed no vegetation -IV daptomycin; repeat blood cultures 2/2 GPC(12/14); additional set drawn this am - will discuss with ID;query sourse 2.Anemia, normocytic -Hgb 6.4 -Transfuse 2 units PRBCs -CBC in am 4.Stage 3 sacral pressure ulcer - continue nutritional supplements, triad cream frequent position change , healing wel -see wound care notes 5.Post op IMN L intertrochanteric fx on 11/16/21 - continue VTE ppx 4 wk postop, incision clean, continue oxycodone for pain control, post fall x-rays 12/07 were obtained which are negative for new fractures, IM nail is in good position without migration ortho recommended 4 week follow-up in the office, continue VTE prophylaxis since patient mostly in bed. 6.Severe protein/calorie malnutrition/# FTT - continue protein supplements, Guille powder -resistant to increase caloric intake 7. anxiety - on mirtazapine and as needed Ativan started by psychiatry # VTE ppx - LMWH Need continued inpatient care for persistent MSSA bacteremia requiring IV antibiotics; source not yet identified. Quality Stroke Does the patient have a stroke diagnosis?: No VTE Prior VTE?: No VTE Risk Level:: Medical - moderate - high VTE Device Contraindication: Treatment Not Indicated VTE Drug Contraindication: N/A - Med Ordered
--- NOTE | 2021-12-18 15:01 | MHC.CM.NN ---
EMR REVIEWED, PT'S BC'S CONT TO COME BACK POSITIVE FOR [facility], NEW SET DRAWN TODAY AND IF NEGATIVE PICC LINE TO BE PLACED SUNDAY AND PT WILL BE ABLE TO GO TO STR AT [facility] THEY ARE FOLLOWING AND IT IS PT'S PREFERRED FACILITY. CM WILL CONT TO FOLLOW D/C NEEDS.
[2021-12-18] MEDS: Mirtazapine 15 MG TABLET PO (20:06)
[2021-12-18] MEDS: Enoxaparin Sodium 40 MG/0.4 ML SYRINGE SUBCUT (20:07)
[2021-12-19 04:00] VITALS: BP 149/92; PULSE 93; RESP 16; TEMP 36.7; O2SAT 98
[2021-12-19] MEDS: Omeprazole 20 MG CAPSULE.DR PO (05:26)
[2021-12-19 05:52] LABS: MANUAL DIFF FLAG NO
[2021-12-19 05:57] LABS: Basophils Absolute Auto 0.1 X10*3/uL (0.0-0.2); Basophils Percent Auto 0.6 % (0-2); Eosinophils Absolute Auto 0.1 X10*3/uL (0.0-0.4); Eosinophils Percent Auto 1.1 % (0-4); Hematocrit 32.2 % (37.0-47.0); Hemoglobin 10.2 g/dl (12.0-16.0); Imm Gran Pct Auto 3.1 % (0.0-0.4); Lymphocytes Percent Auto 10.8 % (20-40); Mean Corpuscular HGB Conc 31.7 g/dl (31.0-35.0); Mean Corpuscular Hemoglobin 31.2 pg (27.0-33.0); Mean Corpuscular Volume 98.5 fL (80.0-98.0); Mean Platelet Volume 9.5 fL (9.4-12.3); Monocytes Absolute Auto 0.8 X10*3/uL (0.1-1.2); Neutrophils Absolute Auto 7.3 x10*3/uL (2.0-8.3); Neutrophils Percent Auto 76.4 % (45-73); Platelet Count 348 X10*3/uL (160-400); Red Blood Count 3.27 X10*6/uL (4.20-5.50); White Blood Count 9.6 X10*3/uL (4.8-10.8)
[2021-12-19 07:24] VITALS: BP 149/74; PULSE 92; RESP 15; TEMP 36.5; O2SAT 100
[2021-12-19] MEDS: 0.9 % Sodium Chloride Flush 10 ML SYRINGE 5 ML IVFLUSH ×3 (09:51→20:32)
[2021-12-19] MEDS: 0.9 % Sodium Chloride Flush 3 ML SYRINGE IVFLUSH ×2 (09:51→20:24)
[2021-12-19] MEDS: Multivitamin TABLET 1 TAB PO (09:51)
[2021-12-19] MEDS: Cholecalciferol (Vitamin D3) 25 MCG TABLET PO (09:51)
[2021-12-19] MEDS: Cyanocobalamin (Vitamin B-12) 500 MCG TABLET PO (09:52)
[2021-12-19] MEDS: oxyCODONE HCl Immed Release 5 MG TABLET PO ×3 (09:59→23:51)
[2021-12-19] MEDS: Collagenase Clostridium Hist. 30 GM TUBE 1 APPL TOPICAL (10:02)
[2021-12-19 12:00] VITALS: PULSE 100; RESP 18; TEMP 36; O2SAT 100
--- NOTE | 2021-12-19 13:05 | HO.PM.IMPN ---
Subjective Subjective Date of Service: 12/19/21 Interval History: No acute issues overnight; remains afebrile.Amb with walker and assist; still not eating substantially. Review of Systems denies chest pain Denies shortness of breath Denies nausea and diarrhea admits to nervousness and anxiety Physical Exam Vital Signs: Vital Signs: Last Vital Signs Temp 97.7 F 12/19/21 07:24 Pulse 92 12/19/21 07:24 Resp 15 12/19/21 07:24 BP 149/74 H 12/19/21 07:24 Pulse Ox 100 12/19/21 07:24 BMI result Body Mass Index 19.1 Const: Other: awake alert anxious. cachectic; ill-appearing Resp: Other: clear to auscultation bilaterally no rales rhonchi or wheezes Cardio: Other: no S4; positive S1-S2; no S3 or murmurs rubs or gallops GI: Other: soft nontender nondistended normoactive bowel Neuro: Other: cranial nerves 2-12 grossly intact as tested; motor 5/5 all extremities sensation in Extrem: Other: Bilateral weeping edema Objective Data Active Medications Acetaminophen (Acetaminophen 325 Mg Tablet) 650 mg PO Q6H PRN PRN Reason: Pain, Mild (Pain Scale 1-3) Last Admin: 12/18/21 20:08 Dose: 650 mg Documented by: UMA Collagenase (Collagenase Clostridium Hist. 30 Gm Tube) 1 appl TOPICAL DAILY [facility]; Protocol Last Admin: 12/19/21 10:02 Dose: 1 appl Documented by: MARY ANN Comments: by wound nurse, performed wound care this am Cyanocobalamin (Cyanocobalamin (Vitamin B-12) 500 Mcg Tablet) 500 mcg PO DAILY [facility] Last Admin: 12/19/21 09:52 Dose: 500 mcg Documented by: MARY ANN Docusate Sodium (Docusate Sodium 100 Mg Capsule) 100 mg PO DAILY PRN PRN Reason: Constipation Last Admin: 12/12/21 08:11 Dose: 100 mg Documented by: PEDRO LUIS Enoxaparin Sodium (Enoxaparin Sodium 40 Mg/0.4 Ml Syringe) 40 mg SUBCUT Q24H [facility] Last Admin: 12/18/21 20:07 Dose: 40 mg Documented by: UMA Ferrous Sulfate (Ferrous Sulfate 324 Mg Tablet.) 324 mg PO DAILY [facility] Last Admin: 12/19/21 10:01 Dose: Not Given Documented by: MARY ANN Non-Admin Reason: Patient Refused Daptomycin 350 mg/ Sodium (Chloride) 57 mls @ 100 mls/hr IV Q24H [facility] Last Infusion: 12/18/21 17:03 Dose: 0 mls/hr Documented by: UMA Mirtazapine (Mirtazapine 15 Mg Tablet) 15 mg PO DAILY@1999 [facility] Last Admin: 12/18/21 20:06 Dose: 15 mg Documented by: UMA Multivitamins/Vitamin C (Multivitamin Tablet) 1 tab PO DAILY [facility] Last Admin: 12/19/21 09:51 Dose: 1 tab Documented by: MARY ANN Omeprazole (Omeprazole 20 Mg Capsule.Dr) 20 mg PO DAILY@06 [facility] Last Admin: 12/19/21 05:26 Dose: 20 mg Documented by: KOMAL Ondansetron HCl (Ondansetron Hcl 4 Mg/2 Ml Vial) 4 mg IVPUSH Q8H PRN PRN Reason: Nausea and Vomiting Oxycodone HCl (Oxycodone Hcl Immed Release 5 Mg Tablet) 5 mg PO Q4H PRN PRN Reason: Pain, Moderate (Pain Scale 4-6 Last Admin: 12/19/21 09:59 Dose: 5 mg Documented by: MARY ANN Pharmacy Consult (Consult Rx Perform Med Rec) 1 each MISCELLANE ONCE PRN PRN Reason: Consult order Pharmacy Consult (Consult Rx Vancomycin Dosing) 1 each MISCELLANE DAILY PRN PRN Reason: Consult order Polyethylene Glycol (Polyethylene Glycol 3350 17 Gm Powd.Pack) 17 gm PO DAILY [facility] Last Admin: 12/19/21 10:01 Dose: Not Given Documented by: MARY ANN Non-Admin Reason: Patient Refused Sodium Chloride (0.9 % Sodium Chloride Flush 3 Ml Syringe) 3 ml IVFLUSH QSHIFT [facility] Last Admin: 12/19/21 09:51 Dose: 3 ml Documented by: MARY ANN Sodium Chloride (0.9 % Sodium Chloride Flush 10 Ml Syringe) 5 ml IVFLUSH TID [facility] Last Admin: 12/19/21 09:51 Dose: 5 ml Documented by: MRAY ANN Vitamin D (Cholecalciferol (Vitamin D3) 25 Mcg Tablet) 25 mcg PO DAILY [facility] Last Admin: 12/19/21 09:51 Dose: 25 mcg Documented by: MARY ANN Labs CBC & Chem 7: 12/19/21 05:25 12/18/21 06:15 Labs: Laboratory Results - last 24 hr 12/18/21 12/19/21 08:11 05:25 MCV 98.5 H MCH 31.2 MCHC 31.7 RDW 18.0 H Plt Count 348 MPV 9.5 Immature Gran % (Auto) 3.1 H Neut % (Auto) 76.4 H Lymph % (Auto) 10.8 L Young % (Auto) 8.0 Eos % (Auto) 1.1 Baso % (Auto) 0.6 Lymph # (Auto) 1.0 L Young # (Auto) 0.8 Eos # (Auto) 0.1 Baso # (Auto) 0.1 Abs Immat Gran (auto) 0.30 H Absolute Neuts (auto) 7.3 Absolute Nucleated RBC 0.000 Nucleated RBC % (auto) 0.0 Blood Type O Positive Antibody Screen NEGATIVE Crossmatch See Detail Microbiology Microbiology Results: Microbiology 12/18/21 06:04 Blood Culture - Preliminary Blood - Venous No growth after 24 hours. 12/18/21 06:15 Blood Culture - Preliminary Blood - Venous No growth after 24 hours. Assessment and Plan (1) MSSA bacteremia: Status: Acute (2) Symptomatic anemia: Status: Acute (3) Sacral pressure ulcer: Status: Acute (4) Malnutrition: Status: Acute Plan 61yo F s/p IM nailing for L intertrochanteric femur fx 11/16/21,sent in from Orthopedics office with symptomatic anemia/FTT found to be bacteremic 1. MSSA bacteremia -limited echo showed no vegetation -IV daptomycin; repeat blood cultures(12/14);no growth x 24hrs -leg wounds likely sourse 2.Anemia, normocytic -good response to 2 units of packed red cells(6.5--10.2) -episode of blacl stools today(on FESO4)...will send next stool for guiac -GI consult if positive 3.Stage 3 sacral pressure ulcer - continue nutritional supplements, triad cream frequent position change , healing wel -see wound care notes 5.Post op IMN L intertrochanteric fx on 11/16/21 - completed VTE ppx 4 wk - will DC until stools confirmed 6.Severe protein/calorie malnutrition/# FTT - continue protein supplements, Guille powder -resistant to increase caloric intake; will ask psych to re eval 7. anxiety - on mirtazapine and as needed Ativan started by psychiatry # VTE ppx - LMWH Need continued inpatient care for persistent MSSA bacteremia requiring IV antibiotics for at least 2 more midnights pending ID of source/negative cultures. Quality Stroke Does the patient have a stroke diagnosis?: No VTE Prior VTE?: No VTE Risk Level:: Medical - moderate - high VTE Device Contraindication: Treatment Not Indicated VTE Drug Contraindication: N/A - Med Ordered
--- NOTE | 2021-12-19 13:17 | MHC.CLN ---
Addendum entered by Bernadine Lopez RD 12/19/21 14:07: PATIENT TRAINING AND DEVELOPMENT ASSISTANT VISITED WITH PATIENT TO DISCUSS PATIENT'S MEAL CONCERNS. Original Note: F/U DIET=REGULAR-APPROPRIATE INTAKE AT MEALS VARIABLE. SELECTS SOME FOODS RATHER THAN WHOLE MEAL. PT RECEIVING ENSURE TID AND ABDIEL BID TO INCREASE KCALS AND PROMOTE WOUND HEALING PROVIDES 1210KCALS, 65G PROTEIN. PATENT STATED THAT DRINKS ALL OF THE SUPPLEMENT 3 TIMES A DAY. MONITOR PO INTAKE AND SUPPLEMENT ACCEPTANCE CLOSELY.
--- NOTE | 2021-12-19 15:54 | MHC.CM.PN ---
NURSE PRESIDENTIAL SUPPORT SPECIALIST NOTE PER ELECTRONIC DOCUMENTATION ;(S/P ADMITT 11/16 WITH L-INTERTROCHANTERIC FEMUR FX S/P IM NAILING,SENT IN BY ORTHOPEDIC SURGEON FAVOI , MALNOURISHED , FTT ANEMIA FOUND TO BE BACTERMIC MSSA ON MIRTOZOPINE PRN AND STARTED ON ATIVAN 12/19/21 BY PSYCH. ( psych for nervousness and anxiety,) has stage 3 pressure ulcer(ON ADMISSION), SKIN TEARS RT UPPER ARM, RT ELBOW RT FORARM RT LOWER LEG AND LEFT LOWER LEG WITH LBILATERAL WEEPING EDEMA OF LEGS She has redness to upper bony spine prominence-foam for protection. Xeroform to all skin tears and Santyl to stage 3 pressure ulcer. The skin tear to her left hip has healed. 4TH SET BLD CXS DRAWN MON 12/12 POSITIVE, PLAN FOR STR FOR ASSISTED IV ABX FOR 4 WKS ONCE BC'S NEG AND PICC IN PLACE, MH EV , PT QUALIFIED OF 11/29/21, CM AWAITING MH ID FROM . AND MEDICARE DISABILITY NUMBER SHOULD BE COMIN G IN SOON WILL NEED AT LEAST TWO MORE NIGHTS FOR IV ABX, IV ANALGEICS, ON MIRTOZOPINE AND STARTED ON ATIVAN BY PSYCHIATRY 12/19/21 (MSSA BACTEREMIA, SYMPTOMATIC ANEMIA STAGE 3 SACRAL PRESSURE ULCER [place] ,catchetic DISCHARGE PLAN REHAB AT [facility] CLINICAL UPDATES GIVEN VIA [employer] AWAITING MEDICARE NUMBER AND [employer] APPROVED .
[2021-12-19 16:00] VITALS: BP 132/70; PULSE 98; RESP 16; TEMP 37.2; O2SAT 98
[2021-12-19 17:27] LABS: CDiff Gene PCR NEGATIVE (Negative)
[2021-12-19 17:45] LABS: OBS Int Ctl Valid YES; OBS1 NEGATIVE (NEGATIVE)
[2021-12-19] MEDS: Loperamide HCl 2 MG CAPSULE PO (18:41)
--- NOTE | 2021-12-19 19:30 | PM.PSYCN ---
History of Present Illness Date of Service: 12/19/2021 Chief Complaint: Anemia, Generalize Weakness anxiety Reason for Consult: medication Requesting physician: Nathan Day Discussed with referring provider: Yes Sources of Information: patient interviewed, chart reviewed and crisis/core team assessment reviewed HPI Narrative: The patient is a 61-year-old single female admitted to the hospital with anemia fatigue edema and was noted to have an intertrochanteric fracture of the left hip which was repaired. I reviewed psych consult note from 12/03/21. Patient denies diagnosis of disordered eating despite restriction, hx of running 8 miles a day. She has low insight into the sequela of her disordered eating, as severe protein malnutrition will interfere with her healing. Per RN, pt has been refusing some medications, i.e. iron, miralax. May get a picc line for bed bug exterminator antibx tx.? I evaluated the pt this evening and upon interview she reports her sleep is ?still horrible? despite the remeron, attributes this to pain in her hip and having to toss and turn, also says she has been having diarrhea as SE from antibiotic treatment. She is tearful, says she is an ?emotional person.? Pt is defensive, has poor insight, states ?I dont have a mental problem? and attributes her anxiety to ?im hurting, I have a lot of pain.? Says she is supposed to be taking care of her mother, ?I?ve got to get there.? Pt is advocating to go to [facility] at [facility], saying ?the hospital isnt achieving my nutritional goals? despite renal case manager saying pt has been refusing food. Pt says she is ?stressed? and ?anxious.? Medical Evaluation Reviewed: Yes [facility] Medical History (Updated 12/20/21 @ 10:57 by Warren Hunter MD) Anemia Avoidant and restrictive food intake disorder Closed intertrochanteric fracture of femur Generalized anxiety disorder MSSA bacteremia OCD (obsessive compulsive disorder) Sacral pressure ulcer Surgical History H/O foot surgery History of hip surgery Diagnostics Vital Signs (24Hr): Vital Signs - 24 hr 12/18/21 20:00 12/18/21 21:20 12/18/21 23:51 Temperature 97.2 F 97.5 F 97.2 F Pulse Rate 86 82 72 Respiratory Rate 20 20 16 Blood Pressure 142/86 H 142/86 H 142/86 H Pulse Oximetry 99 98 12/19/21 04:00 12/19/21 07:24 12/19/21 12:00 Temperature 98.0 F 97.7 F 96.8 F Pulse Rate 93 92 100 Respiratory Rate 16 15 18 Blood Pressure 149/92 H 149/74 H Pulse Oximetry 98 100 100 12/19/21 16:00 Temperature 98.9 F Pulse Rate 98 Respiratory Rate 16 Blood Pressure 132/70 Pulse Oximetry 98 BMI result Body Mass Index 19.1 Labs Results: 12/19/21 05:25 12/18/21 06:15 Labs: Laboratory Results - last 48 hr 12/18/21 12/18/21 12/18/21 06:15 06:15 08:11 WBC 8.8 RBC 2.18 L Hgb 6.5 L* Hct 21.4 L MCV 98.2 H MCH 29.8 MCHC 30.4 L RDW 19.9 H Plt Count 413 H MPV 10.1 Immature Gran % (Auto) 3.4 H Neut % (Auto) 75.4 H Lymph % (Auto) 12.4 L Preston % (Auto) 7.2 Eos % (Auto) 1.3 Baso % (Auto) 0.3 Lymph # (Auto) 1.1 L Preston # (Auto) 0.6 Eos # (Auto) 0.1 Baso # (Auto) 0.0 Abs Immat Gran (auto) 0.30 H Absolute Neuts (auto) 6.6 Absolute Nucleated RBC 0.000 Nucleated RBC % (auto) 0.0 Sodium 139 Potassium 4.0 Chloride 106 Carbon Dioxide 28 Anion Gap 9 L BUN 28 H Creatinine 0.44 L Estim Creat Clear Calc 75.9 Estimated GFR > 60 Fasting Glucose 65 Calcium 7.4 L Phosphorus 3.0 Total Bilirubin 0.2 AST 20 ALT < 6 Alkaline Phosphatase 165 H Total Protein 4.2 L Albumin 1.5 L Stool Occult Blood C. difficile Tox B Gene Blood Type O Positive Antibody Screen NEGATIVE Crossmatch See Detail 12/19/21 12/19/21 12/19/21 05:25 15:01 15:36 WBC 9.6 RBC 3.27 L D Hgb 10.2 L D Hct 32.2 L D MCV 98.5 H MCH 31.2 MCHC 31.7 RDW 18.0 H Plt Count 348 MPV 9.5 Immature Gran % (Auto) 3.1 H Neut % (Auto) 76.4 H Lymph % (Auto) 10.8 L Preston % (Auto) 8.0 Eos % (Auto) 1.1 Baso % (Auto) 0.6 Lymph # (Auto) 1.0 L Preston # (Auto) 0.8 Eos # (Auto) 0.1 Baso # (Auto) 0.1 Abs Immat Gran (auto) 0.30 H Absolute Neuts (auto) 7.3 Absolute Nucleated RBC 0.000 Nucleated RBC % (auto) 0.0 Sodium Potassium Chloride Carbon Dioxide Anion Gap BUN Creatinine Estim Creat Clear Calc Estimated GFR Fasting Glucose Calcium Phosphorus Total Bilirubin AST ALT Alkaline Phosphatase Total Protein Albumin Stool Occult Blood NEGATIVE C. difficile Tox B Gene NEGATIVE Blood Type Antibody Screen Crossmatch Imaging Radiology Impressions: ITS Impressions Chest X-Ray 11/29/21 13:00 IMPRESSION: Hyperinflated lungs without acute process. Abdomen/Pelvis CT 11/29/21 16:41 IMPRESSION: 1. CT chest. No suspicious lung mass. No acute abnormality of chest. 2. CT scan abdomen and pelvis. No abdominal or pelvic mass. No acute abnormality. Chest CT 11/29/21 16:41 IMPRESSION: 1. CT chest. No suspicious lung mass. No acute abnormality of chest. 2. CT scan abdomen and pelvis. No abdominal or pelvic mass. No acute abnormality. Head CT 11/29/21 16:41 IMPRESSION: No evidence of acute intracranial hemorrhage or edematous territorial infarction. Chest X-Ray 12/06/21 13:09 IMPRESSION: New small bilateral pleural effusions. No evidence of pneumonia. Hip/Pelvis X-Ray 12/07/21 15:18 IMPRESSION: Medullary toni and compression screw in place for fixation of left femoral intratrochanteric fracture without evidence of new fracture or dislocation. Mental Status Exam Mental Status Exam Narrative: Patient Appearance:?Appropriate Patient Orientation:?Person, Place, Time and Situation Level of Consciousness:?Awake, Restless and Alert Patient Behavior:?Appropriate and Guarded Mood Description:?Constricted, Anxious and Apprehensive Affect Description:?Constricted, Nervous and Apprehensive Patient Cognition Impaired:?No Ability to Follow Directions:?Good Speech Pattern:?Clear Memory Description:?Intact Hallucinations:?None Delusions:?Not Present Thought Process:?Rumination Thought Content:?positive for Obsessional Thoughts, positive for Preoccupation, negative for Suicidal Ideation or negative for Homicidal Ideation Depressive Symptoms:?Increased Anxiety, Insomnia, Increased Irritability and Thoughts of /Suicide Judgment:?Fair Medications Medications Current Medications Acetaminophen (Acetaminophen 325 Mg Tablet) 650 mg PO Q6H PRN PRN Reason: Pain, Mild (Pain Scale 1-3) Last Admin: 12/18/21 20:08 Dose: 650 mg Documented by: Collagenase (Collagenase Clostridium Hist. 30 Gm Tube) 1 appl TOPICAL DAILY [facility]; Protocol Last Admin: 12/19/21 10:02 Dose: 1 appl Documented by: Cyanocobalamin (Cyanocobalamin (Vitamin B-12) 500 Mcg Tablet) 500 mcg PO DAILY [facility] Last Admin: 12/19/21 09:52 Dose: 500 mcg Documented by: Docusate Sodium (Docusate Sodium 100 Mg Capsule) 100 mg PO DAILY PRN PRN Reason: Constipation Last Admin: 12/12/21 08:11 Dose: 100 mg Documented by: Ferrous Sulfate (Ferrous Sulfate 324 Mg Tablet.) 324 mg PO DAILY [facility] Last Admin: 12/19/21 10:01 Dose: Not Given Documented by: Daptomycin 350 mg/ Sodium (Chloride) 57 mls @ 100 mls/hr IV Q24H [facility] Last Infusion: 12/19/21 17:04 Dose: Infused Documented by: Mirtazapine (Mirtazapine 15 Mg Tablet) 15 mg PO DAILY@2000 [facility] Last Admin: 12/18/21 20:06 Dose: 15 mg Documented by: Multivitamins/Vitamin C (Multivitamin Tablet) 1 tab PO DAILY [facility] Last Admin: 12/19/21 09:51 Dose: 1 tab Documented by: Omeprazole (Omeprazole 20 Mg Capsule.) 20 mg PO DAILY@0630 [facility] Last Admin: 12/19/21 05:26 Dose: 20 mg Documented by: Ondansetron HCl (Ondansetron Hcl 4 Mg/2 Ml Vial) 4 mg IVPUSH Q8H PRN PRN Reason: Nausea and Vomiting Oxycodone HCl (Oxycodone Hcl Immed Release 5 Mg Tablet) 5 mg PO Q4H PRN PRN Reason: Pain, Moderate (Pain Scale 4-6 Last Admin: 03/14/22 16:22 Dose: 5 mg Documented by: Pharmacy Consult (Consult Rx Perform Med Rec) 1 each MISCELLANE ONCE PRN PRN Reason: Consult order Pharmacy Consult (Consult Rx Vancomycin Dosing) 1 each MISCELLANE DAILY PRN PRN Reason: Consult order Polyethylene Glycol (Polyethylene Glycol 3350 17 Gm Powd.Pack) 17 gm PO DAILY [facility] Last Admin: 12/19/21 10:01 Dose: Not Given Documented by: Sodium Chloride (0.9 % Sodium Chloride Flush 3 Ml Syringe) 3 ml IVFLUSH QSHIFT [facility] Last Admin: 12/19/21 16:23 Dose: Not Given Documented by: Sodium Chloride (0.9 % Sodium Chloride Flush 10 Ml Syringe) 5 ml IVFLUSH TID [facility] Last Admin: 12/19/21 16:23 Dose: 5 ml Documented by: Vitamin D (Cholecalciferol (Vitamin D3) 25 Mcg Tablet) 25 mcg PO DAILY [facility] Last Admin: 12/19/21 09:51 Dose: 25 mcg Documented by: Allergies Allergies Allergy/AdvReac Type Severity Reaction Status Date / Time No Known Allergies Allergy Unverified 11/29/21 11:24 [No Known Allergies*] Assessment & Plan Assessment & Plan (1) Generalized anxiety disorder: Status: Acute Code(s): F41.1 - Generalized anxiety disorder (2) OCD (obsessive compulsive disorder): Status: Acute Code(s): F42.9 - Obsessive-compulsive disorder, unspecified (3) Avoidant and restrictive food intake disorder: Status: Acute Code(s): F50.82 - Avoidant/restrictive food intake disorder (4) Malnutrition: Status: Acute Code(s): E46 - Unspecified protein-calorie malnutrition (5) Cachexia: Status: Acute Code(s): R64 - Cachexia Plan Plan: Pt does not meet criteria for IPLOC, as she denies SI/SIB/HI and says she feels safe. She clearly has disordered eating, restricting type, and her inadequate nutritional intake is negatively affecting her healing. Pt denies having disordered eating and is defensive of her maladaptive coping. Will start olanzapine 5 mg BID for anxiety, agitation, and mood lability, may help with rigid thinking and appetite. Will increase remeron to 30 mg QHS for sleep and appetite.? I have shared this with Dr. Day Thank you for this consultation. If you have any questions or concerns, please do not hesitate to contact psychiatry service. I spent minutes with the patient and/or on the patient floor today, greater than?50% of which was spent counseling/coordinating care. Patient educated on: medication risk/benefits and therapeutic strategies
[2021-12-19 20:00] VITALS: BP 123/69; PULSE 95; RESP 18; TEMP 37.3; O2SAT 95
[2021-12-19] MEDS: Mirtazapine 30 MG TABLET PO (20:08)
[2021-12-19] MEDS: OLANZapine 5 MG TABLET PO ×2 (20:08→21:01)
[2021-12-19 23:27] VITALS: BP 120/71; PULSE 88; RESP 17; TEMP 36.4; O2SAT 99
[2021-12-20] VITALS (7 sets, daily range): BP systolic 122–138; BP diastolic 65–75; PULSE 77–107; RESP 14–18; TEMP 36–37.1; O2SAT 98–100; BMI 17.6
[2021-12-20] MEDS: oxyCODONE HCl Immed Release 5 MG TABLET PO ×4 (04:25→19:54)
[2021-12-20] MEDS: Omeprazole 20 MG CAPSULE.DR PO (05:49)
[2021-12-20] MEDS: OLANZapine 5 MG TABLET PO ×2 (08:39→14:38)
[2021-12-20] MEDS: Cyanocobalamin (Vitamin B-12) 500 MCG TABLET PO (08:39)
[2021-12-20] MEDS: Multivitamin TABLET 1 TAB PO (08:39)
[2021-12-20] MEDS: 0.9 % Sodium Chloride Flush 10 ML SYRINGE 5 ML IVFLUSH (08:39)
[2021-12-20] MEDS: Cholecalciferol (Vitamin D3) 25 MCG TABLET PO (08:39)
--- NOTE | 2021-12-20 14:47 | HO.PM.IMPN ---
Subjective Subjective Date of Service: 12/20/21 Interval History: No acute issues overnight; remains afebrile.Amb with walker and assist; still not eating substantially. Review of Systems denies chest pain Denies shortness of breath Denies nausea and diarrhea admits to nervousness and anxiety Physical Exam Vital Signs: Vital Signs: Last Vital Signs Temp 98 F 12/20/21 12:00 Pulse 100 12/20/21 12:00 Resp 17 12/20/21 12:00 BP 130/69 12/20/21 12:00 Pulse Ox 98 12/20/21 12:00 BMI result Body Mass Index 17.6 Const: Other: awake alert anxious. cachectic; ill-appearing Resp: Other: clear to auscultation bilaterally no rales rhonchi or wheezes Cardio: Other: no S4; positive S1-S2; no S3 or murmurs rubs or gallops GI: Other: soft nontender nondistended normoactive bowel Neuro: Other: cranial nerves 2-12 grossly intact as tested; motor 5/5 all extremities sensation in Extrem: Other: Bilateral weeping edema Objective Data Active Medications Acetaminophen (Acetaminophen 325 Mg Tablet) 650 mg PO Q6H PRN PRN Reason: Pain, Mild (Pain Scale 1-3) Last Admin: 12/18/21 20:08 Dose: 650 mg Documented by: UMA Collagenase (Collagenase Clostridium Hist. 30 Gm Tube) 1 appl TOPICAL DAILY [facility]; Protocol Last Admin: 12/20/21 10:58 Dose: Not Given Documented by: PRABHJOT Non-Admin Reason: given by wound RN Cyanocobalamin (Cyanocobalamin (Vitamin B-12) 500 Mcg Tablet) 500 mcg PO DAILY [facility] Last Admin: 12/20/21 08:39 Dose: 500 mcg Documented by: PRABHJOT Docusate Sodium (Docusate Sodium 100 Mg Capsule) 100 mg PO DAILY PRN PRN Reason: Constipation Last Admin: 12/12/21 08:11 Dose: 100 mg Documented by: COTEMA Ferrous Sulfate (Ferrous Sulfate 324 Mg Tablet.) 324 mg PO DAILY [facility] Last Admin: 12/20/21 08:40 Dose: Not Given Documented by: PRABHJOT Non-Admin Reason: Patient Refused Daptomycin 350 mg/ Sodium (Chloride) 57 mls @ 100 mls/hr IV Q24H [facility] Last Infusion: 12/19/21 17:04 Dose: 0 mls/hr Documented by: PRABHJOT Mirtazapine (Mirtazapine 30 Mg Tablet) 30 mg PO DAILY@1999 [facility] Last Admin: 12/19/21 20:08 Dose: 30 mg Documented by: MANUEL Multivitamins/Vitamin C (Multivitamin Tablet) 1 tab PO DAILY [facility] Last Admin: 12/20/21 08:39 Dose: 1 tab Documented by: PRABHJOT Olanzapine (Olanzapine 5 Mg Tablet) 5 mg PO BID [facility] Last Admin: 12/20/21 14:38 Dose: 5 mg Documented by: PRABHJOT Comments: future dose given per MD Day. Omeprazole (Omeprazole 20 Mg Capsule.) 20 mg PO DAILY@06 [facility] Last Admin: 12/20/21 05:49 Dose: 20 mg Documented by: MANUEL Ondansetron HCl (Ondansetron Hcl 4 Mg/2 Ml Vial) 4 mg IVPUSH Q8H PRN PRN Reason: Nausea and Vomiting Oxycodone HCl (Oxycodone Hcl Immed Release 5 Mg Tablet) 5 mg PO Q4H PRN PRN Reason: Pain, Moderate (Pain Scale 4-6 Last Admin: 12/20/21 14:32 Dose: 5 mg Documented by: PRABHJOT Pharmacy Consult (Consult Rx Perform Med Rec) 1 each MISCELLANE ONCE PRN PRN Reason: Consult order Pharmacy Consult (Consult Rx Vancomycin Dosing) 1 each MISCELLANE DAILY PRN PRN Reason: Consult order Polyethylene Glycol (Polyethylene Glycol 3350 17 Gm Powd.Pack) 17 gm PO DAILY [facility] Last Admin: 12/20/21 08:40 Dose: Not Given Documented by: PRABHJOT Non-Admin Reason: Patient Refused Sodium Chloride (0.9 % Sodium Chloride Flush 3 Ml Syringe) 3 ml IVFLUSH QSHIFT [facility] Last Admin: 12/20/21 08:40 Dose: Not Given Documented by: PRABHJOT Non-Admin Reason: midline Sodium Chloride (0.9 % Sodium Chloride Flush 10 Ml Syringe) 5 ml IVFLUSH TID [facility] Last Admin: 12/20/21 08:39 Dose: 5 ml Documented by: PRABHJOT Vitamin D (Cholecalciferol (Vitamin D3) 25 Mcg Tablet) 25 mcg PO DAILY [facility] Last Admin: 12/20/21 08:39 Dose: 25 mcg Documented by: PRABHJOT Labs CBC & Chem 7: 12/19/21 05:25 12/18/21 06:15 Labs: Laboratory Results - last 24 hr 12/19/21 12/19/21 15:01 15:36 Stool Occult Blood NEGATIVE C. difficile Tox B Gene NEGATIVE Microbiology Microbiology Results: Microbiology 12/18/21 06:15 Blood Culture - Preliminary Blood - Venous No growth after 48 hours. 12/18/21 06:04 Blood Culture - Preliminary Blood - Venous No growth after 48 hours. Assessment and Plan (1) MSSA bacteremia: Status: Acute (2) Avoidant and restrictive food intake disorder: Status: Acute Plan 61yo F s/p IM nailing for L intertrochanteric femur fx 11/16/21,sent in from Orthopedics office with symptomatic anemia/FTT found to be bacteremic 1. MSSA bacteremia -limited echo showed no vegetation -IV daptomycin; PICC line..28 days Daptomycin x 28 days -leg wounds likely sourse 2.Anemia, normocytic -good response to 2 units of packed red cells(6.5--10.2) - Quiac neg...CDiff neg 3.Stage 3 sacral pressure ulcer - continue nutritional supplements, triad cream frequent position change , healing wel -see wound care notes 5.Post op IMN L intertrochanteric fx on 11/16/21 - completed VTE ppx 4 wk - will DC until stools confirmed 6.Severe protein/calorie malnutrition/# FTT - continue protein supplements, Guille powder -resistant to increase caloric intake; will ask psych to re eval 7. anxiety - on mirtazapine and as needed Ativan started by psychiatry # VTE ppx - LMWH Need continued inpatient care for persistent MSSA bacteremia requiring IV antibiotics for at least 1 more midnights pending ID of source/negative cultures. Quality Stroke Does the patient have a stroke diagnosis?: No VTE Prior VTE?: No VTE Risk Level:: Medical - moderate - high VTE Device Contraindication: Treatment Not Indicated VTE Drug Contraindication: N/A - Med Ordered
--- NOTE | 2021-12-20 15:01 | MHC.CM.PN ---
Addendum entered by Cora Mims 12/21/21 16:29: UPDATE; IV KEFZOL 2 G Q8H. NO NEED TO HOLD UP DC Addendum entered by Cora Mims 12/21/21 16:24: [facility] OFFERING A BED PATIENT AND RN MADE AWARE PLAN WAS FOR 6 PM TRANSFER TO FACILITY [facility]IA [facility] THEN [facility] SAY THERE IS NO DAPTO ON SITE AND THERE IS A SHORTAGE THERE DUE TO HIGH COST REQUEST FOR CHANGE IN ABX. MD MADE AWARE CURRENTLY AWAITING ID INPUT. OF THIS NOTE, NO RESPONSE MDS COMPLETED AND AWAITING UPDATED DC SUMMARY (IF POSSIBLE) TO BE FAXED TO [facility] SCREEN UNIT AT [phone] RN AND PATIENT MADE AWARE OF HOLD UP [facility] ON HOLD Original Note: PLAN IS FOR PICC LINE AND 4-6 WEEKS OF IV ABX. [facility] IS FOLLOWING ALONG. (PATIENT'S FIRST CHOICE) PLEASE READ [facility] COMMUNICATIONS WITH FACILITY FOR UPDATES
[2021-12-20] MEDS: Mirtazapine 30 MG TABLET PO (19:54)
[2021-12-20] MEDS: OLANZapine 10 MG TABLET PO (19:54)
[2021-12-21] MEDS: oxyCODONE HCl Immed Release 5 MG TABLET PO ×2 (00:19→07:53)
[2021-12-21 04:00] VITALS: BP 132/65; PULSE 106; RESP 14; TEMP 38.3; O2SAT 98
[2021-12-21 07:40] VITALS: BP 123/69; PULSE 102; RESP 18; TEMP 37.3; O2SAT 98
[2021-12-21] MEDS: 0.9 % Sodium Chloride Flush 3 ML SYRINGE IVFLUSH (07:52)
[2021-12-21] MEDS: 0.9 % Sodium Chloride Flush 10 ML SYRINGE 5 ML IVFLUSH (07:52)
[2021-12-21] MEDS: Cyanocobalamin (Vitamin B-12) 500 MCG TABLET PO (07:53)
[2021-12-21] MEDS: Acetaminophen 325 MG TABLET 650 MG PO ×2 (07:53→17:34)
[2021-12-21] MEDS: Multivitamin TABLET 1 TAB PO (07:53)
[2021-12-21] MEDS: Cholecalciferol (Vitamin D3) 25 MCG TABLET PO (07:53)
[2021-12-21] MEDS: OLANZapine 5 MG TABLET PO (07:57)
[2021-12-21 11:03] VITALS: BP 123/69; PULSE 102; O2SAT 98
--- NOTE | 2021-12-21 11:04 | MHC.CLN ---
F/U DIET=REGULAR. PT RECEIVING ENSURE TID AND ABDIEL BID TO INCREASE KCALS AND PROMOTE WOUND HEALING PROVIDES 1210KCALS, 65G PROTEIN. PATENT STATED THAT DRINKS SUPPLEMENT 3 TIMES A DAY. INTAKE AT MEALS VARIABLE. SELECTS SOME FOODS RATHER THAN WHOLE MEAL. REVIEWED PSYCH CONSULT, DISORDERED EATING WITH SOME MED CHANGES RECOMMENDED. WEIGHT 12/20/21=35.6 KG. SHOWS 12.8% WEIGHT LOSS SINCE 11/15/21. CONTINUE TO PROVIDE FOOD PREFERENCES ABLE WITH PERSONALIZED MENU SELECTION WITH [facility]. ENCOURAGE FOOD AND SUPPLEMENT INTAKE ABLE., MONITOR PO INTAKE AND SUPPLEMENT ACCEPTANCE CLOSELY.
[2021-12-21 12:00] VITALS: BP 134/66; PULSE 106; RESP 18; TEMP 37.1; O2SAT 100
--- NOTE | 2021-12-21 15:31 | P.DS_ITS ---
DS: Providers Provider Date of Service: 12/21/21 Date of admission: 12/01/21 12:45 Date of discharge: 12/21/21 Primary care physician: Unknown Physician Consults: 11/30/21 06:32 Consult to Orthopedics Routine Consulting Provider: Prakash Mc Reason for consultation: s/p IM nail Has provider been notified: No 11/30/21 06:38 Consult to Hematology / Oncology Routine Consulting Provider: Chioma Cain Reason for consultation: anemia Has provider been notified: No 12/01/21 15:41 Consult to Psychiatry Routine Consulting Provider: Psych Covering Reason for consultation: Well being...query eating disorder Has provider been notified: No 12/07/21 07:13 Consult to Infectious Diseases Routine Consulting Provider: Julia Milian Reason for consultation: GPC bacteremia 12/14/21 07:41 Consult to Orthopedics Routine Consulting Provider: Prakash Mc Reason for consultation: bacteremia persistent recent hip surgery Has provider been notified: No DS: Diagnosis Discharge Diagnosis (1) Generalized anxiety disorder: Status: Acute (2) OCD (obsessive compulsive disorder): Status: Acute (3) Avoidant and restrictive food intake disorder: Status: Acute (4) Malnutrition: Status: Acute (5) Cachexia: Status: Acute DS: Summary Hospital Course Hospital Course: Chief Complaint: generalized weakness, failure to thrive this is a 61 yo F with? no significant past medical history with a recent left hip fracture on 11/15? who presents to the hospital with complaints of generalized weakness and failure to thrive.? Patient was seen in the hospital and discharged on 06/18 after undergoing left hip IM nail.? Patient at that time refused placement in rehab and went home with VNA services.? She reports that since being discharged she has had significant decline in her health.? She is not? eating well, she is constantly dizzy, she has blurred vision, she has generalized weakness, she is unable to take care of herself and is completely dependent of all her ADLs on her mother.? She reports no chest pain or shortness of breath but reports minimal activity.? She has not been receiving physical therapy at home because she reports that she is very malnourished and does not have the strength to participate in physical therapy.? She was visiting her orthopedic surgeon today and was so weak that she fell to the floor and was not able to get up.? She reports no loss of consciousness, and reports that she was too weak to even walk. ? Patient reports that prior to the fracture she was running ? 3 times a day a day about 2 hours a day or 10 miles.? Even prior to the fracture she was not eating well and was malnourished. shes had a fall last wk at home and tearing the skin on her right leg. Hospital Course Patient found to be extremely anemic on admission. Received 4 units of blood over the next 2 days with appropriate response in her hemoglobin. She is status post left hip fracture but was doing fairly well with that. Her legs showed bilateral dependent edema with some areas of broken skin along with cellulitis changes. She was started on vancomycin to cover cellulitis and subsequent blood cultures grew out Methyl Senstive Staph aureus. After multiple cultures, blood cultures cleared and PICC line was obtain. Per ID recommendation she will need 4 weeks of vancomycin from last negative blood culture which should end 12/15/2021. She will be discharged to a fpc facility with an expected stay of less than 30 days Time Spent with Patient Time attestation: Total time spent providing and/or coordinating discharge services: Discharge coordination time: Greater than 30 minutes Quality: Stroke Does the patient have a stroke diagnosis?: No Physical Exam Vital Signs: Vital Signs: Last Vital Signs Temp 98.7 F 12/21/21 12:00 Pulse 106 H 12/21/21 12:00 Resp 18 12/21/21 12:00 BP 134/66 12/21/21 12:00 Pulse Ox 100 12/21/21 12:00 BMI result Body Mass Index 17.6 Const: Other: awake alert anxious. cachectic; ill-appearing Resp: Other: clear to auscultation bilaterally no rales rhonchi or wheezes Cardio: Other: no S4; positive S1-S2; no S3 or murmurs rubs or gallops GI: Other: soft nontender nondistended normoactive bowel Neuro: Other: cranial nerves 2-12 grossly intact as tested; motor 5/5 all extremities sensation in Extrem: Other: Bilateral weeping edema DS: Data Data Completed and Pending Completed studies during hospitalization [Text1]: Procedures Reposition Left Upper Femur with Intramedullary Internal Fixation Device, Percutaneous Approach (11/15/21) Transfusion of Nonautologous Red Blood Cells into Peripheral Vein, Percutaneous Approach (11/15/21) Labs on day of discharge: Preliminary micro results at discharge 12/18/21 06:15 Blood Culture - Preliminary Blood - Venous No growth after 48 hours. 12/18/21 06:04 Blood Culture - Preliminary Blood - Venous No growth after 48 hours. Discharge Plan Discharge Patient Disposition: Xfer Inpatient Rehab Fac Discharge Diagnosis: MSSA bacteremia Referrals: Raúl Gaona PA-C [Physician Corrective Therapy Aide Teacher] - 03/16/22 11:30 am () Isabell Starks PA-C [Physician Corrective Therapy Aide Teacher] - None (SundayJanuary 06 at 1130) Discharge Medications: New olanzapine 5 mg Tablet 5 mg PO BID PRN (Reason: agitation, anxiety) Qty: 60 0RF olanzapine 10 mg Tablet 10 mg PO BEDTIME Qty: 30 0RF mirtazapine 30 mg Tablet 30 mg PO DAILY@2000 Qty: 30 0RF sodium chloride 0.9 % (flush) [BD PosiFlush Normal Saline 0.9] Syringe 3 ml IVFLUSH QSHIFT Qty: 30 0RF daptomycin 350 mg recon soln 500 mg IV Q24H Qty: 42 0RF Rx Instructions: administer over 30 mins Continued oxycodone 5 mg tablet 5 mg PO Q6H PRN (Reason: Pain, Moderate (Pain Scale 4-6) 7 Days Qty: 28 0RF ferrous sulfate 325 mg (65 mg iron) tablet 325 mg PO DAILY Qty: 30 0RF cyanocobalamin (vitamin B-12) 500 mcg Tablet 500 mcg PO DAILY 0RF cholecalciferol (vitamin D3) [Vitamin D3] 25 mcg (1,000 unit) Capsule 25 mcg PO DAILY 0RF Centrum Chewables 8 mg-400 mcg- 10 mcg Tablet,Chewable 1 tab PO DAILY 0RF acetaminophen 325 mg Tablet 650 mg PO Q6H PRN (Reason: Pain, Mild (Pain Scale 1-3)) 30 Days Qty: 240 0RF aspirin 325 mg tablet 325 mg PO BID 42 Days Qty: 84 0RF omeprazole 20 mg capsule,delayed release(DR/EC) 20 mg PO DAILY Qty: 30 0RF Discharge Orders: Discharge Order (Routine); Ordered 12/21/21 Ordered By: Nathan Day Diet: advance to usual diet Activity on Discharge: As tolerated Stand Alone Forms: Patient Portal Discharge page Activity Restrictions/Additional Instructions: Wound care instructions:Cleanse sacrum and buttocks with wound cleanser then apply Silver Alginate to sacral stage 3 pressure ulcer cover with foam dressing. Apply foam dressing to upper spine for protection. Apply Xeroform to right amaya, right foot skin tears cover with Tegaderm. Apply Xeroform to right elbow skin tear and right lower arm skin tear cover all with small Tegaderms. Turn and reposition often due to patients frailty. Apply ines wraps to bilateral legs. Care Plan Goals: Increase diet as tolerated. Meet with dietitian to ascertain total caloric needs they can be given in palatable foods for the patient Health Concerns: Concerns for increased nutrition as patient had difficulty while in acute setting Plan of Treatment: Continue Zyprexa and mirtazapine as ordered. Adjustments as per receiving facility Assessment: See discharge summary
[2021-12-21 16:00] VITALS: BP 119/62; PULSE 98; RESP 18; TEMP 37.8
--- NOTE | 2021-12-27 09:06 | MHC.CM.PN ---
CM RECEIVED A CALL FROM PT'S MOTHER/HCP JOHN WHO REPORTS SHE AND PT CAN NOT REMEMBER WHICH MH PLAN PT CHOSE, INFORMATION NOT IN NOTES SO ANGELICA TRANSFERRED JOHN TO [facility] THEY ASSISTED JOHN W/PT'S APPLICATION AND ARE ABLE TO LOOK UP PLAN.
== END 2021-12-21 20:34 | DRG 811 ==
LOC: HO.ED 17:30 → HO.EDOVER 21:33 → HO.S3 12-01 19:33
PROVIDERS: Family Medicine; Hospitalist; Internal Medicine; Physician Assistant; Admitting Provider Internal Medicine; Emergency Provider Emergency Medicine; Visit Provider Hospitalist
DX: D64.9 Anemia, unspecified (principal); E43 Unspecified severe protein-calorie malnutrition; L89.153 Pressure ulcer of sacral region, stage 3; Z68.1 Body mass index [BMI] 19.9 or less, adult; R78.81 Bacteremia; L03.116 Cellulitis of left lower limb; L03.115 Cellulitis of right lower limb; F41.9 Anxiety disorder, unspecified; E16.2 Hypoglycemia, unspecified; Z20.822 Contact with and (suspected) exposure to COVID-19; R62.7 Adult failure to thrive; F50.82 Avoidant/restrictive food intake disorder; B95.61 Methicillin susceptible Staphylococcus aureus infection as the cause of diseases classified elsewhere; E83.39 Other disorders of phosphorus metabolism; F42.9 Obsessive-compulsive disorder, unspecified; F41.1 Generalized anxiety disorder; Z87.891 Personal history of nicotine dependence; Z79.82 Long term (current) use of aspirin; Z79.899 Other long term (current) drug therapy
CPT/HCPCS: 36410; 36415; 36430; 36573; 70450; 71045; 71046; 71260; 73502; 74177; 80048; 80053; 80076; 80202; 81001; 82040; 82272; 82550; 82565; 82607; 82728; 82746; 82784; 82947; 83010; 83540; 83615; 83735; 84100; 84145; 84165; 84484; 85007; 85025; 85027; 85045; 85610; 85652; 86038; 86039; 86140; 86334; 86431; 86850; 86880; 86900; 86901; 86923; 87040; 87071; 87077; 87086; 87088; 87147; 87186; 87205; 87493; 87635; 93005; 93308; 96361; 96374; 97110; 97116; 97162; 97166; 97530; 97535; 99218; 99285; 99291; C1751; J0690; J0696; J0878; J1650; J2405; J3370; P9016; Q9967

== ENCOUNTER 2021-12-30 01:35 | Inpatient (IN) | payer OTHER, SELFPAY ==
[2021-12-30] VITALS (8 sets, daily range): BP systolic 86–128; BP diastolic 46–79; PULSE 61–82; RESP 9–20; TEMP 36.4–36.8; O2SAT 96–99; BMI 13.6; BMI 18.8
--- NOTE | ~2021-12-30 | CT_ITS ---
EXAMINATION: CT HEAD WITHOUT CONTRAST CLINICAL INFORMATION: TIA symptoms , now resolved COMPARISON: 11/29/2021 TECHNIQUE: Contiguous axial imaging was performed from the skull base to vertex without intravenous administration of contrast. This CT examination was performed using dose optimization techniques as appropriate, variously including the following: *Automated exposure control *Adjustment of mA and/or kV according to patient size (this includes techniques or standardized protocols for targeted exams where dose is matched to indication/reason for exam; i.e. extremities or head) *Use of iterative reconstruction technique DLP: 5 a 9 mGy-cm FINDINGS: There is no evidence of acute intracranial hemorrhage or territorial infarction. No abnormal mass effect or midline shift is seen. [place] to white matter differentiation is well preserved. No extra-axial fluid collections are identified. Mild enlargement of the ventricles, sulci, and extra-axial CSF spaces is indicative of parenchymal volume loss. There is no abnormal attenuation within the brain parenchyma. Bilateral temporomandibular joint osteoarthritis. No acute osseous or soft tissue abnormalities. The mastoid air cells and visualized portions of the paranasal sinuses are well aerated. CT/CT head/brain wo con IMPRESSION: No acute intracranial pathology.
--- NOTE | ~2021-12-30 | CT_ITS ---
EXAMINATION: CTA OF THE HEAD AND NECK CLINICAL INFORMATION: TIA symptoms, slurred speech COMPARISON: CT head brain from the same date. TECHNIQUE: Test bolus sequences followed by intravenous administration 70 mL of Omnipaque 350. Helical imaging was performed in the axial plane from the mediastinum to the skull vertex. Delayed postcontrast imaging of the head was also performed. The data was processed at the radiologic technologist's workstation for generation of MIP sequences. Three-dimensional volume rendered reformatted images were also generated at an offline 3-D workstation. Stenoses are assessed in accordance with NASCET criteria unless otherwise indicated. DLP: 1388 mGy-cm. FINDINGS: CT head: There is no evidence of acute intracranial hemorrhage or territorial infarction. There is no loss of estr[place] to white matter differentiation. No abnormal mass effect or midline shift is seen. No extra-axial fluid collections are identified. There is no abnormal enhancement. Mild enlargement of the ventricles, sulci, and extra-axial CSF spaces is indicative of parenchymal volume loss. There is no abnormal attenuation within the brain parenchyma. Bilateral temporomandibular joint osteoarthritis. No acute osseous or soft tissue abnormalities. The mastoid air cells and visualized portions of the paranasal sinuses are well aerated. CTA neck: The aortic arch is of normal contour and caliber. Classic 3 vessel branching pattern of the aortic arch. No significant stenosis of the branch origins. The common and internal carotid arteries opacify normally without focal stenosis or occlusion. Minimal calcific atherosclerosis at the carotid bulbs. The cervical segments of the vertebral arteries opacify normally without focal stenosis or occlusion. There is minimal subcutaneous fat with anasarca the soft tissues of the neck and upper chest. Mild interstitial edema in the lung apices. Small pleural effusions. 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 There is marked degenerative disc disease in the mid cervical spine at C3-C4, C4-C5, and C5-C6. There is grade 2 anterolisthesis of C3 on C4. Multilevel facet arthropathy is noted. Multiple mandibular and maxillary jenelle are noted. CTA head: There is normal opacification of major intracranial arteries. No focal flow-limiting stenosis, discrete proximal large artery occlusion, or saccular intradural aneurysm. Dural venous sinuses appear patent. Normal contrast opacification of the petrous, cavernous, paraophthalmic, and supraclinoid segments of the internal carotid arteries without focal stenosis. Normal appearance of the anterior cerebral and middle cerebral arteries without focal occlusion or stenosis. Normal anterior communicating artery. Normal arborization of the middle cerebral arteries. Normal appearance of the intradural vertebral and posterior inferior cerebellar arteries. Normal appearance of the basilar, superior cerebellar, and P1 segments of the posterior cerebral arteries. No appreciable posterior communicating arteries. Normal appearance of the distal segments of the posterior cerebral arteries bilaterally. CT/CT angio head neck IMPRESSION: No acute vascular abnormalities are identified in the head and neck. No flow-limiting stenoses are identified. Pulmonary interstitial edema with small bilateral pleural effusions
[2021-12-30 01:49] LABS: ~PT, ~INR - Anti Coag Clinic 1.8 (0.9-1.1)
--- NOTE | 2021-12-30 02:31 | ECG_ITS ---
Test Reason : ?stroke Blood Pressure : / mmHG Vent. Rate : 061 BPM Atrial Rate : 061 BPM P-R Int : 148 ms QRS Dur : 084 ms QT Int : 430 ms P-R-T Axes : 080 076 078 degrees QTc Int : 432 ms Normal sinus rhythm Normal ECG When compared with ECG of 29-NOV-2021 12:46, ST no longer depressed in Anterior leads T wave inversion no longer evident in Anterolateral leads Referred By: Isela De Jesus Electronically Signed By:JAE LORA MD
--- NOTE | 2021-12-30 02:31 | ED_ITS ---
HPI - Neuro Symptoms/Deficit General Chief Complaint: Stroke Stated Complaint: ?STROKE Time Seen by Provider: 12/30/21 02:24 Source: patient and EMS Mode of arrival: EMS Limitations: no limitations History of Present Illness HPI Narrative: Patient comes to emergency room from a snf. Patient had stroke-like symptoms 2 hours prior to arrival. Since the patient had slurred speech and difficulty moving both arms and both legs. Patient arrived to the emergency room, patient was speaking, patient was moving both arms both legs, talking. Patient seemed confused but patient was following commands Related Data Home Medications Medication Instructions Recorded Confirmed cholecalciferol (vitamin D3) 25 25 mcg PO DAILY 11/15/21 11/29/21 mcg (1,000 unit) capsule (Vitamin D3) cyanocobalamin (vitamin B-12) 500 500 mcg PO DAILY 11/15/21 11/29/21 mcg tablet [id number] 8 mg-folic 1 tab PO DAILY 11/15/21 11/29/21 ac 400 mcg-vit K 10 mcg chew tablet (Centrum Chewables) Previous Rx's Medication Instructions Recorded ferrous sulfate 325 mg (65 mg 325 mg PO DAILY #30 tab 11/07/21 iron) tablet acetaminophen 325 mg tablet 650 mg PO Q6H PRN 30 Days #240 tab 11/18/21 aspirin 325 mg tablet 325 mg PO BID 42 Days #84 tab 11/18/21 omeprazole 20 mg capsule,delayed 20 mg PO DAILY #30 cap 11/18/21 release oxycodone 5 mg tablet 5 mg PO Q6H PRN 7 Days #28 tab 11/23/21 cefazolin 1 gram intravenous See Rx Instructions .ROUTE 12/21/21 solution .COMPLEX #84 ea mirtazapine 30 mg tablet 30 mg PO DAILY@1999 #30 tab 12/21/21 olanzapine 10 mg tablet 10 mg PO BEDTIME #30 tab 12/21/21 olanzapine 5 mg tablet 5 mg PO BID PRN #60 tab 12/21/21 sodium chloride 0.9 % (flush) (BD 3 ml IVFLUSH QSHIFT #30 ml 12/21/21 PosiFlush Normal Saline 0.9) Allergies Allergy/AdvReac Type Severity Reaction Status Date / Time No Known Allergies Allergy Unverified 11/29/21 11:24 [No Known Allergies*] Review of Systems Review of Systems: Constitutional : Patient denies fever ENT/Mouth : Denies sore throat,denies ear pain Eyes: No eye pain Cardiovascular : Denies chest pain or shortness of breath Respiratory : No Cough, No Sputum, No Wheezing, No Smoke Exposure, No Dyspnea Gastrointestinal : No nausea vomiting or diarrhea, no abdominal pain Genitourinary : No UTI symptoms Musculoskeletal : States the pain is improving in her left hip from previous fracture, No Myalgias, No Joint Swelling Skin : No Skin Lesions, No rash Neuro : Chronic weakness Psych : Denies SI or HI Heme/Lymph: No Bruising, No Bleeding,No Lymphadenopathy Endocrine : No Polyuria, No Polydipsia, No Temperature Intolerance PMFSH Past Medical History Medical History Anemia Avoidant and restrictive food intake disorder Closed intertrochanteric fracture of femur Generalized anxiety disorder MSSA bacteremia OCD (obsessive compulsive disorder) Sacral pressure ulcer Surgical History H/O foot surgery History of hip surgery Family History Family History Other No family history of coronary artery disease Social History Social History Household Members: Family Household Members Other:: mother Housing: House Do you presently have visiting nurse or other home services: No Alcohol intake: never Patient Tobacco Use Status: Former Tobacco user Tobacco use type: Cigarette Advance Directives: Yes Advance Directives on File: Yes Advance Directives Date on File: 11/16/21 Patient : No service: Yes Current occupational status: unemployed Physical Exam Vital Signs: Vital Signs: Last Vital Signs Temp 97.5 F 12/30/21 01:41 Pulse 64 12/30/21 04:20 Resp 12 12/30/21 04:20 BP 119/68 12/30/21 04:20 Pulse Ox 96 12/30/21 04:20 BMI result Body Mass Index 13.6 Const: Other: Appearance: Alert. Oriented X2, cachectic Eyes: Pupils equal, round and reactive to light. ENT: Pharynx normal. Neck: Normal inspection. Neck supple. No lymph nodes noted. No crepitus CVS: Normal heart rate and rhythm. Pulses normal. Normal S1 and S2 Respiratory: No respiratory distress. Breath sounds normal. No Wheezing. No rales Abdomen: Soft and nontender. No rigidity. No distention. Skin: Skin warm and dry. Normal skin color. Normal skin turgor. Extremities: See below Neuro: Patient is moving all extremities, follows commands. Patient seems that she is generalized weak, has equal strength in all 4 extremities, 3/5. Patient answering questions appropriately Psych: calm, cooperative Course Course Course Narrative: On arrival to the emergency room, NIH stroke scale score is 0 . It is possible that patient was having stroke-like symptoms/TIA. Resolved upon arrival to the emergency room Of note, patient was recently discharged from the hospital on 12/21/2021 for MRSA bacteremia. Patient has a PICC line, patient is taking Kefzol 2 g IV q.8 hours, needs to take it for 28 days starting the day account on December 21 At this time, patient is somnolent but easily arousable. Patient is angry that I keep waking her up. Patient has no neurological deficits. Head CT and CTA pending. Other labs are pending. I was informed by the patient's nurse that patient's glucose is in the low 50s. It is likely that patient had the stroke like symptoms secondary to hypoglycemia. Patient was given D50, patient is also being given IV fluids for blood pressure systolic 88 while sleeping. Patient is very cachectic, likely patient runs low blood pressures. Sepsis is not suspected at this time After D50, patient's blood glucose improved to 157, however shortly after it dropped to 69. Patient is not on any diabetic medications. Patient was giving an additional D50 and is now on half D5. Head CT and CTA do not show any acute pathology. Urine is negative for UTI. I discussed the patient with Dr. Dela Cruz, patient being admitted for TIA like symptoms, which could be related to hypoglycemia but at the time remains unclear. Also, patient's blood glucose keeps dropping MDM - Neuro Symptoms/Deficit Lab Data Result diagrams: 12/30/21 03:04 12/30/21 03:04 Labs: Lab Results 12/30/21 12/30/21 12/30/21 Range/Units 01:42 03:04 03:04 WBC 9.4 (4.8-10.8) X10*3/uL RBC 2.49 L D (4.20-5.50) X10*6/uL Hgb 7.9 L D (12.0-16.0) g/dl Hct 25.3 L D (37.0-47.0) % MCV 101.6 H (80.0-98.0) fL MCH 31.7 (27.0-33.0) pg MCHC 31.2 (31.0-35.0) g/dl RDW 18.4 H (11.0-16.0) % Plt Count 386 (160-400) X10*3/uL MPV 9.9 (9.4-12.3) fL Immature Gran % (Auto) 0.5 H (0.0-0.4) % Neut % (Auto) 81.1 H (45-73) % Lymph % (Auto) 10.5 L (20-40) % [place] % (Auto) 6.5 (2-11) % Eos % (Auto) 1.0 (0-4) % Baso % (Auto) 0.4 (0-2) % Lymph # (Auto) 1.0 L (1.2-4.9) X10*3/uL [place] # (Auto) 0.6 (0.1-1.2) X10*3/uL Eos # (Auto) 0.1 (0.0-0.4) X10*3/uL Baso # (Auto) 0.0 (0.0-0.2) X10*3/uL Abs Immat Gran (auto) 0.05 H (0.00-0.03) X10*3/uL Absolute Neuts (auto) 7.6 (2.0-8.3) x10*3/uL Absolute Nucleated RBC 0.000 (0.0-0.012) X10*3/uL Nucleated RBC % (auto) 0.0 (0.0-0.2) /100WBC PT 20.4 H (9.9-13.0) SEC Whole Blood PT 22.0 H (11.1-13.5) sec INR 1.8 H (0.9-1.1) Whole Blood INR 1.8 H (0.9-1.1) Sodium (135-145) mmol/L Potassium (3.3-5.1) mmol/L Chloride (96-108) mmol/L Carbon Dioxide (22-29) mmol/L Anion Gap (12-20) BUN (9-16) mg/dL Creatinine (0.5-1.4) mg/dL Estim Creat Clear Calc Estimated GFR POC Glucose (60-115) mg/dL Random Glucose (60-115) mg/dL Lactic Acid (0.5-2.0) mmol/L Calcium (8.4-10.2) mg/dL Magnesium (1.6-2.6) mg/dL Total Bilirubin (0.0-1.0) mg/dL Direct Bilirubin (0.0-0.5) mg/dL AST (5-31) U/L ALT (0-31) U/L Alkaline Phosphatase (39-117) U/L Troponin I High Sens (<3.5-17.0) ng/L Total Protein (6.5-8.0) g/dL Albumin (3.5-5.0) g/dL Urine Color Urine Appearance Urine pH (5.0-8.0) Ur Specific [place] (1.005-1.025) Urine Protein (NEG-TRACE) MG/DL Urine Glucose (UA) (NEG) MG/DL Urine Ketones (NEG) MG/DL Urine Blood (NEG) Urine Nitrite (NEG) Ur Leukocyte Esterase (NEG) Urine RBC (0) /HPF Urine WBC (0-4) /HPF Ur Squamous Epith Cells /LPF Urine Bacteria /LPF COVID-19 ([facility]) (Negative) COVID-19 Clin Com Blood Type Antibody Screen 12/30/21 12/30/21 12/30/21 Range/Units 03:04 03:04 03:04 WBC (4.8-10.8) X10*3/uL RBC (4.20-5.50) X10*6/uL Hgb (12.0-16.0) g/dl Hct (37.0-47.0) % MCV (80.0-98.0) fL MCH (27.0-33.0) pg MCHC (31.0-35.0) g/dl RDW (11.0-16.0) % Plt Count (160-400) X10*3/uL MPV (9.4-12.3) fL Immature Gran % (Auto) (0.0-0.4) % Neut % (Auto) (45-73) % Lymph % (Auto) (20-40) % [place] % (Auto) (2-11) % Eos % (Auto) (0-4) % Baso % (Auto) (0-2) % Lymph # (Auto) (1.2-4.9) X10*3/uL [place] # (Auto) (0.1-1.2) X10*3/uL Eos # (Auto) (0.0-0.4) X10*3/uL Baso # (Auto) (0.0-0.2) X10*3/uL Abs Immat Gran (auto) (0.00-0.03) X10*3/uL Absolute Neuts (auto) (2.0-8.3) x10*3/uL Absolute Nucleated RBC (0.0-0.012) X10*3/uL Nucleated RBC % (auto) (0.0-0.2) /100WBC PT (9.9-13.0) SEC Whole Blood PT (11.1-13.5) sec INR (0.9-1.1) Whole Blood INR (0.9-1.1) Sodium 141 (135-145) mmol/L Potassium 3.8 (3.3-5.1) mmol/L Chloride 105 (96-108) mmol/L Carbon Dioxide 30 H (22-29) mmol/L Anion Gap 10 L (12-20) BUN 14 (9-16) mg/dL Creatinine 0.49 L (0.5-1.4) mg/dL Estim Creat Clear Calc 71.7 Estimated GFR > 60 POC Glucose (60-115) mg/dL Random Glucose 56 L* (60-115) mg/dL Lactic Acid 0.8 (0.5-2.0) mmol/L Calcium 8.2 L D (8.4-10.2) mg/dL Magnesium 1.8 (1.6-2.6) mg/dL Total Bilirubin 0.5 (0.0-1.0) mg/dL Direct Bilirubin 0.2 (0.0-0.5) mg/dL AST 28 (5-31) U/L ALT < 6 (0-31) U/L Alkaline Phosphatase 103 D (39-117) U/L Troponin I High Sens 11.4 (<3.5-17.0) ng/L Total Protein 4.5 L (6.5-8.0) g/dL Albumin 1.8 L (3.5-5.0) g/dL Urine Color Urine Appearance Urine pH (5.0-8.0) Ur Specific [place] (1.005-1.025) Urine Protein (NEG-TRACE) MG/DL Urine Glucose (UA) (NEG) MG/DL Urine Ketones (NEG) MG/DL Urine Blood (NEG) Urine Nitrite (NEG) Ur Leukocyte Esterase (NEG) Urine RBC (0) /HPF Urine WBC (0-4) /HPF Ur Squamous Epith Cells /LPF Urine Bacteria /LPF COVID-19 ([facility]) (Negative) COVID-19 Clin Com Blood Type Antibody Screen 12/30/21 12/30/21 12/30/21 Range/Units 03:04 03:05 03:53 WBC (4.8-10.8) X10*3/uL RBC (4.20-5.50) X10*6/uL Hgb (12.0-16.0) g/dl Hct (37.0-47.0) % MCV (80.0-98.0) fL MCH (27.0-33.0) pg MCHC (31.0-35.0) g/dl RDW (11.0-16.0) % Plt Count (160-400) X10*3/uL MPV (9.4-12.3) fL Immature Gran % (Auto) (0.0-0.4) % Neut % (Auto) (45-73) % Lymph % (Auto) (20-40) % [place] % (Auto) (2-11) % Eos % (Auto) (0-4) % Baso % (Auto) (0-2) % Lymph # (Auto) (1.2-4.9) X10*3/uL [place] # (Auto) (0.1-1.2) X10*3/uL Eos # (Auto) (0.0-0.4) X10*3/uL Baso # (Auto) (0.0-0.2) X10*3/uL Abs Immat Gran (auto) (0.00-0.03) X10*3/uL Absolute Neuts (auto) (2.0-8.3) x10*3/uL Absolute Nucleated RBC (0.0-0.012) X10*3/uL Nucleated RBC % (auto) (0.0-0.2) /100WBC PT (9.9-13.0) SEC Whole Blood PT (11.1-13.5) sec INR (0.9-1.1) Whole Blood INR (0.9-1.1) Sodium (135-145) mmol/L Potassium (3.3-5.1) mmol/L Chloride (96-108) mmol/L Carbon Dioxide (22-29) mmol/L Anion Gap (12-20) BUN (9-16) mg/dL Creatinine (0.5-1.4) mg/dL Estim Creat Clear Calc Estimated GFR POC Glucose (60-115) mg/dL Random Glucose (60-115) mg/dL Lactic Acid (0.5-2.0) mmol/L Calcium (8.4-10.2) mg/dL Magnesium (1.6-2.6) mg/dL Total Bilirubin (0.0-1.0) mg/dL Direct Bilirubin (0.0-0.5) mg/dL AST (5-31) U/L ALT (0-31) U/L Alkaline Phosphatase (39-117) U/L Troponin I High Sens (<3.5-17.0) ng/L Total Protein (6.5-8.0) g/dL Albumin (3.5-5.0) g/dL Urine Color STRAW Urine Appearance CLEAR Urine pH 7.5 (5.0-8.0) Ur Specific [place] 1.010 (1.005-1.025) Urine Protein NEG (NEG-TRACE) MG/DL Urine Glucose (UA) NEG (NEG) MG/DL Urine Ketones NEG (NEG) MG/DL Urine Blood TRACE (NEG) Urine Nitrite NEG (NEG) Ur Leukocyte Esterase NEG (NEG) Urine RBC 0 (0) /HPF Urine WBC 0-2 (0-4) /HPF Ur Squamous Epith Cells TRACE /LPF Urine Bacteria NONE /LPF COVID-19 ([facility]) Negative (Negative) COVID-19 Clin Com See Note Blood Type O Positive Antibody Screen NEGATIVE 12/30/21 12/30/21 12/30/21 Range/Units 03:58 04:33 05:41 WBC (4.8-10.8) X10*3/uL RBC (4.20-5.50) X10*6/uL Hgb (12.0-16.0) g/dl Hct (37.0-47.0) % MCV (80.0-98.0) fL MCH (27.0-33.0) pg MCHC (31.0-35.0) g/dl RDW (11.0-16.0) % Plt Count (160-400) X10*3/uL MPV (9.4-12.3) fL Immature Gran % (Auto) (0.0-0.4) % Neut % (Auto) (45-73) % Lymph % (Auto) (20-40) % [place] % (Auto) (2-11) % Eos % (Auto) (0-4) % Baso % (Auto) (0-2) % Lymph # (Auto) (1.2-4.9) X10*3/uL [place] # (Auto) (0.1-1.2) X10*3/uL Eos # (Auto) (0.0-0.4) X10*3/uL Baso # (Auto) (0.0-0.2) X10*3/uL Abs Immat Gran (auto) (0.00-0.03) X10*3/uL Absolute Neuts (auto) (2.0-8.3) x10*3/uL Absolute Nucleated RBC (0.0-0.012) X10*3/uL Nucleated RBC % (auto) (0.0-0.2) /100WBC PT (9.9-13.0) SEC Whole Blood PT (11.1-13.5) sec INR (0.9-1.1) Whole Blood INR (0.9-1.1) Sodium (135-145) mmol/L Potassium (3.3-5.1) mmol/L Chloride (96-108) mmol/L Carbon Dioxide (22-29) mmol/L Anion Gap (12-20) BUN (9-16) mg/dL Creatinine (0.5-1.4) mg/dL Estim Creat Clear Calc Estimated GFR POC Glucose 51 L* 157 H 69 (60-115) mg/dL Random Glucose (60-115) mg/dL Lactic Acid (0.5-2.0) mmol/L Calcium (8.4-10.2) mg/dL Magnesium (1.6-2.6) mg/dL Total Bilirubin (0.0-1.0) mg/dL Direct Bilirubin (0.0-0.5) mg/dL AST (5-31) U/L ALT (0-31) U/L Alkaline Phosphatase (39-117) U/L Troponin I High Sens (<3.5-17.0) ng/L Total Protein (6.5-8.0) g/dL Albumin (3.5-5.0) g/dL Urine Color Urine Appearance Urine pH (5.0-8.0) Ur Specific [place] (1.005-1.025) Urine Protein (NEG-TRACE) MG/DL Urine Glucose (UA) (NEG) MG/DL Urine Ketones (NEG) MG/DL Urine Blood (NEG) Urine Nitrite (NEG) Ur Leukocyte Esterase (NEG) Urine RBC (0) /HPF Urine WBC (0-4) /HPF Ur Squamous Epith Cells /LPF Urine Bacteria /LPF COVID-19 ([facility]) (Negative) COVID-19 Clin Com Blood Type Antibody Screen Imaging Data Head CT and CTA: Radiologist's impression: CT head: There is no evidence of acute intracranial hemorrhage or territorial infarction. There is no loss of [place] to white matter differentiation. No abnormal mass effect or midline shift is seen. No extra-axial fluid collections are identified. There is no abnormal enhancement. Mild enlargement of the ventricles, sulci, and extra-axial CSF spaces is indicative of parenchymal volume loss. There is no abnormal attenuation within the brain parenchyma. Bilateral temporomandibular joint osteoarthritis. No acute osseous or soft tissue abnormalities. The mastoid air cells and visualized portions of the paranasal sinuses are well aerated. ? CTA neck: The aortic arch is of normal contour and caliber. Classic 3 vessel branching pattern of the aortic arch. No significant stenosis of the branch origins. The common and internal carotid arteries opacify normally without focal stenosis or occlusion. Minimal calcific atherosclerosis at the carotid bulbs. The cervical segments of the vertebral arteries opacify normally without focal stenosis or occlusion. There is minimal subcutaneous fat with anasarca the soft tissues of the neck and upper chest. Mild interstitial edema in the lung apices. Small pleural effusions. 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 There is marked degenerative disc disease in the mid cervical spine at C3-C4, C4-C5, and C5-C6. There is grade 2 anterolisthesis of C3 on C4. Multilevel facet arthropathy is noted. Multiple mandibular and maxillary jenelle are noted. CTA head: There is normal opacification of major intracranial arteries. No focal flow-limiting stenosis, discrete proximal large artery occlusion, or saccular intradural aneurysm. Dural venous sinuses appear patent. Normal contrast opacification of the petrous, cavernous, paraophthalmic, and supraclinoid segments of the internal carotid arteries without focal stenosis. Normal appearance of the anterior cerebral and middle cerebral arteries without focal occlusion or stenosis. Normal anterior communicating artery. Normal arborization of the middle cerebral arteries. Normal appearance of the intradural vertebral and posterior inferior cerebellar arteries. Normal appearance of the basilar, superior cerebellar, and P1 segments of the posterior cerebral arteries. No appreciable posterior communicating arteries. Normal appearance of the distal segments of the posterior cerebral arteries bilaterally. CT/CT angio head neck IMPRESSION: No acute vascular abnormalities are identified in the head and neck. No flow-limiting stenoses are identified. ? Pulmonary interstitial edema with small bilateral pleural effusions NIH Stroke Scale Level of Consciousness: Alert Level of Consciousness Questions: Answers both questions correctly Level of Consciousness Commands: Performs both tasks correctly Best Gaze: Normal Visual: No visual loss Facial Palsy: Normal Motor Arm (Right): No drift Motor Arm (Left): No drift Motor Leg (Right): No drift Motor Leg (Left): No drift Limb Ataxia: Absent Sensory: Normal Best Language: No aphasia Dysarthia: Normal Extinction and Inattention: No abnormality Score: 0 Discharge Plan Discharge Clinical Impression: Brain TIA, Hypoglycemia Patient Disposition: Home, Self-Care Prescriptions: No Action oxycodone 5 mg tablet 5 mg PO Q6H PRN (Reason: Pain, Moderate (Pain Scale 4-6) 7 Days Qty: 28 0RF ferrous sulfate 325 mg (65 mg iron) tablet 325 mg PO DAILY Qty: 30 0RF cyanocobalamin (vitamin B-12) 500 mcg Tablet 500 mcg PO DAILY 0RF cholecalciferol (vitamin D3) [Vitamin D3] 25 mcg (1,000 unit) Capsule 25 mcg PO DAILY 0RF Centrum Chewables 8 mg-400 mcg- 10 mcg Tablet,Chewable 1 tab PO DAILY 0RF acetaminophen 325 mg Tablet 650 mg PO Q6H PRN (Reason: Pain, Mild (Pain Scale 1-3)) 30 Days Qty: 240 0RF aspirin 325 mg tablet 325 mg PO BID 42 Days Qty: 84 0RF omeprazole 20 mg capsule,delayed release(DR/EC) 20 mg PO DAILY Qty: 30 0RF olanzapine 5 mg Tablet 5 mg PO BID PRN (Reason: agitation, anxiety) Qty: 60 0RF olanzapine 10 mg Tablet 10 mg PO BEDTIME Qty: 30 0RF mirtazapine 30 mg Tablet 30 mg PO DAILY@2000 Qty: 30 0RF sodium chloride 0.9 % (flush) [BD PosiFlush Normal Saline 0.9] Syringe 3 ml IVFLUSH QSHIFT Qty: 30 0RF cefazolin 1 gram recon soln See Rx Instructions .ROUTE .COMPLEX Qty: 84 0RF Rx Instructions: 2 g intravenously q8hrs x 28 days
[2021-12-30 03:10] LABS: Appearance Urine CLEAR; Color Urine STRAW; Glucose Urine UA NEG (NEG); Leukocyte Esterase Urine NEG (NEG); Nitrite Urine NEG (NEG); PH 7.5 (5.0-8.0); UACC Culture Trigger NO; Urine Blood TRACE (NEG); Urine Ketones NEG (NEG); Urine Protein NEG (NEG-TRACE)
[2021-12-30] MEDS: 0.9 % Sodium Chloride 1,000 ML 999 ML IVCONT ×2 (03:21→04:34)
[2021-12-30 03:25] LABS: MANUAL DIFF FLAG NO
[2021-12-30 03:25] LABS: WBC Urine 0-2 /HPF (0-4)
[2021-12-30 03:26] LABS: RBC Urine 0 /HPF (0); Squamous Epithelial Cell Urine TRACE /LPF
[2021-12-30 03:28] LABS: Basophils Percent Auto 0.4 % (0-2); Eosinophils Absolute Auto 0.1 X10*3/uL (0.0-0.4); Hematocrit 25.3 % (37.0-47.0); Hemoglobin 7.9 g/dl (12.0-16.0); Imm Gran Abs Auto 0.05 X10*3/uL (0.00-0.03); Imm Gran Pct Auto 0.5 % (0.0-0.4); Lymphocytes Percent Auto 10.5 % (20-40); Mean Corpuscular HGB Conc 31.2 g/dl (31.0-35.0); Mean Corpuscular Hemoglobin 31.7 pg (27.0-33.0); Mean Corpuscular Volume 101.6 fL (80.0-98.0); Mean Platelet Volume 9.9 fL (9.4-12.3); Monocytes Absolute Auto 0.6 X10*3/uL (0.1-1.2); Monocytes Percent Auto 6.5 % (2-11); Neutrophils Absolute Auto 7.6 x10*3/uL (2.0-8.3); Neutrophils Percent Auto 81.1 % (45-73); Platelet Count 386 X10*3/uL (160-400); Red Blood Count 2.49 X10*6/uL (4.20-5.50); Red Cell Distribution Width 18.4 % (11.0-16.0); White Blood Count 9.4 X10*3/uL (4.8-10.8)
[2021-12-30 03:34] LABS: INTERNATIONAL NORM RATIO 1.8 (0.9-1.1); Prothrombin Time 20.4 SEC (9.9-13.0)
[2021-12-30 03:36] LABS: Lactic Acid 0.8 mmol/L (0.5-2.0)
[2021-12-30 03:46] LABS: Troponin-I High Sensitivity 11.4 ng/L (<3.5-17.0)
[2021-12-30 03:59] LABS: Alanine Aminotransferase < 6 U/L (0-31); Albumin Level 1.8 g/dL (3.5-5.0); Alkaline Phosphatase 103 U/L (39-117); Anion Gap 10 (12-20); Aspartate Amino Transferase 28 U/L (5-31); Bilirubin Direct 0.2 mg/dL (0.0-0.5); Bilirubin Total 0.5 mg/dL (0.0-1.0); Blood Urea Nitrogen 14 mg/dL (9-16); Calcium 8.2 mg/dL (8.4-10.2); Carbon Dioxide 30 mmol/L (22-29); Chloride 105 mmol/L (96-108); Creatinine Clr Calc Pharmacy 71.7; Estimated Glomerular Filt Rate > 60; Glucose Random 56 mg/dL (60-115); Magnesium 1.8 mg/dL (1.6-2.6); Potassium 3.8 mmol/L (3.3-5.1); Sodium 141 mmol/L (135-145); Total Protein 4.5 g/dL (6.5-8.0)
[2021-12-30 04:02] LABS: Glucose, Whole Blood 51 mg/dL (60-115)
--- NOTE | 2021-12-30 04:14 | PC.NURSE ---
Critical Blood Glucose 56, Dr De Jesus made aware,
[2021-12-30 04:16] LABS: COVID-19 Test Negative (Negative)
[2021-12-30 04:37] LABS: Glucose, Whole Blood 157 mg/dL (60-115)
[2021-12-30] MEDS: iohexoL 350 MG/ML 100 ML INFUS..BTL 70 ML IV (05:38)
[2021-12-30 05:45] LABS: Glucose, Whole Blood 69 mg/dL (60-115)
[2021-12-30] MEDS: Dextrose 5 % and 0.45 % NaCl 1,000 ML 125 ML IVCONT ×2 (06:03→09:51)
[2021-12-30 06:46] LABS: Glucose, Whole Blood 148 mg/dL (60-115)
--- NOTE | 2021-12-30 07:20 | PHA.MEDREC ---
Pharmacy Consult ? Medication Reconciliation Pharmacy has completed the medication reconciliation. Contacted [facility] for a medicaiton list. Ignacia Gr, DeniseD
[2021-12-30 07:59] LABS: Glucose, Whole Blood 119 mg/dL (60-115)
--- NOTE | 2021-12-30 08:19 | PC.NURSE ---
Patient trialed off of D5 IVF per hospitalist. Encouraged to increase PO intake, patient only wants fruit and yogurt, kitchen called. ED physician working on obtaining Ensure.
[2021-12-30 09:37] LABS: Glucose, Whole Blood 53 mg/dL (60-115)
[2021-12-30 10:30] LABS: Glucose, Whole Blood 185 mg/dL (60-115)
--- NOTE | 2021-12-30 10:38 | PC.NURSE ---
Patient continues to refuse to eat; dextrose and IVF D51/2NS restarted. Patient angry, stating I'm the patient, i should have a say and is adamant to speak to hospitalist, although this RN spoke with patient repeatedly. Message to Dr Sellers. Report called to [facility] on [address] at this time.
--- NOTE | 2021-12-30 10:53 | PM.IMHP ---
History of Present Illness Date of Service: 12/30/21 Attending physician on admission: Padilla Sellers Chief Complaint: slurred speech and difficulty moving 61-year-old female patient recently discharged from [facility] on December 21 after being managed for profound anemia requiring 4 units of packed RBC, noted to have severe protein calorie malnutrition with significant hypoalbuminemia as well as treated for MSSA bacteremia, from skin infection was placed on PICC line for 4 weeks of IV Kefzol and was transferred to rehab facility, patient was sent from rehab as she was noted to have slurred speech and was not moving both upper or lower extremities, in the emergency room patient was talking without difficulty moving all 4 extremities she was noted to have blood sugar in low 50s therefore she was treated with D50 and IV fluid was initiated, CT head was unremarkable after patient placed on IV D5W blood sugars improved but soon after stopping IV drip patient blood sugar trended down again in low 50 range despite eating breakfast therefore patient will be admitted for continued monitoring and treatment of hypoglycemia, patient home vitals remained stable except for 1 episode of low blood pressure 86/46 that improved with IV fluids, there was no evidence of sepsis with a normal WBC count hematocrit is at baseline, urinalysis is unremarkable, as per patient she has been doing fine in rehab was participating with physical therapy ambulating she does not recall what happened to her according to her she has been eating good and was feeling ready to be discharged from rehab facility, patient keep requesting to shorten the duration of her IV antibiotics and wishes to be discharged home she has been on answering questions appropriately and is aware of place person and time, but keeps repeating she does not understand why she needs to be on prolonged course of antibiotics and why she needs rehab. Review of Systems Review of Systems: General no headache no dizziness no fever chills. CVS no chest pain, no palpitation. Respiratory no cough , no sputum production no respiratory distress. Gastrointestinal no nausea, no vomiting, no abdominal pain Skin no itching Yes all other systems are reviewed and are negative [facility] Medical History Anemia Avoidant and restrictive food intake disorder Closed intertrochanteric fracture of femur Generalized anxiety disorder MSSA bacteremia OCD (obsessive compulsive disorder) Sacral pressure ulcer Family History Other No family history of coronary artery disease Surgical History H/O foot surgery History of hip surgery Social History Household Members: Family Household Members Other:: Mother Housing: House Do you presently have visiting nurse or other home services: No Alcohol intake: never Patient Tobacco Use Status: Former Tobacco user Tobacco use type: Cigarette Use of substances other than those prescribed or required for medical reasons: No Currently Displaying Signs/Symptoms of Drug Intoxication Withdrawal: No Have you been hit, kicked, punched, or otherwise hurt by someone within the past year? If so, by whom?: No Do you feel safe in your current relationship?: No Current Relationship Is there a partner from a previous relationship who is making you feel unsafe now?: No Are you made to feel afraid or neglected: No Advance Directives: Yes Advance Directives on File: Yes Advance Directives Date on File: 11/16/21 Do you have thoughts of harming others: None Do you have a plan to hurt others: No Plan Recently lost weight without trying: No Eating poorly because of decreased appetite: No Nutrition Risks: Poor intake 0-25% >4 days Patient : No : No Poor oral hygiene: No service: Yes Current occupational status: unemployed Meds Allergies Allergy/AdvReac Type Severity Reaction Status Date / Time No Known Allergies Allergy Unverified 11/29/21 11:24 [No Known Allergies*] Active Medications: Current Medications Acetaminophen (Acetaminophen 325 Mg Tablet) 650 mg PO Q6H PRN PRN Reason: Pain, Mild (Pain Scale 1-3) Acetaminophen (Acetaminophen 325 Mg Tablet) 650 mg PO Q6H PRN PRN Reason: Pain, Mild (Pain Scale 1-3) Aspirin (Aspirin 325 Mg Tablet) 325 mg PO BID [facility] Cyanocobalamin (Cyanocobalamin (Vitamin B-12) 500 Mcg Tablet) 500 mcg PO DAILY [facility] Dextrose/Sodium Chloride (D51/2ns) 1,000 mls @ 125 mls/hr IVCONT .Q8H [facility] Last Admin: 12/30/21 09:51 Dose: 125 mls/hr Documented by: Mirtazapine (Mirtazapine 30 Mg Tablet) 30 mg PO DAILY@1999 [facility] Multivitamins/Vitamin C (Multivitamin Tablet) 1 tab PO DAILY [facility] Non-Formulary Medication (Cefazolin) 2 gm IV Q8H [facility] Non-Formulary Medication (Ferrous Sulfate) 325 mg PO DAILY [facility] Olanzapine (Olanzapine 5 Mg Tablet) 5 mg PO Q12H PRN PRN Reason: agitation, anxiety Olanzapine (Olanzapine 10 Mg Tablet) 10 mg PO BEDTIME [facility] Omeprazole (Omeprazole 20 Mg Capsule.Dr) 20 mg PO DAILY [facility] Ondansetron HCl (Ondansetron Hcl 4 Mg/2 Ml Vial) 4 mg IVPUSH Q8H PRN PRN Reason: Nausea Oxycodone HCl (Oxycodone Hcl Immed Release 5 Mg Tablet) 5 mg PO Q6H PRN PRN Reason: Pain, Moderate (Pain Scale 4-6 Sodium Chloride (0.9 % Sodium Chloride Flush 3 Ml Syringe) 3 ml IVFLUSH QSHIFT [facility] Vitamin D (Cholecalciferol (Vitamin D3) 25 Mcg Tablet) 25 mcg PO DAILY [facility] Home Medications Medication Instructions Recorded Confirmed Last Taken Type cholecalciferol (vitamin D3) 25 25 mcg PO DAILY 11/15/21 12/30/21 11/14/21 History mcg (1,000 unit) capsule (Vitamin D3) cyanocobalamin (vitamin B-12) 500 500 mcg PO DAILY 11/15/21 12/30/21 11/14/21 History mcg tablet cefazolin 1 gram intravenous 2 g IV Q8H 12/30/21 12/30/21 Unknown History solution multivitamin 1 tab PO DAILY 12/30/21 12/30/21 Unknown History olanzapine 5 mg tablet 5 mg PO Q12H PRN 12/30/21 12/30/21 Unknown History Physical Exam Vital Signs and Narrative: Vital Signs: Last Vital Signs Temp 97.5 F 12/30/21 01:41 Pulse 72 12/30/21 09:41 Resp 13 12/30/21 09:41 BP 106/65 12/30/21 09:41 Pulse Ox 99 12/30/21 09:41 BMI result Body Mass Index 13.6 Const: Other: General chachetic, awake alert x3, in no acute distress. HEENT pupils equal round reactive to light and accommodate Neck supple no JVD. CVS regular rate rhythm, Respiratory lungs clear to auscultation, no respiratory distress, no wheeze, no rhonchi. Gastrointestinal abdomen soft, nontender, bowel sounds audible, no guarding , no rigidity. Extremities no edema. Neuro nonfocal , speech clear cranial nerve 2-12 intact. Skin multiple bruises both feet and extremities/ sacral pressure ulcer Psych appropriate affect Results Labs CBC and Chem 7: 12/30/21 03:04 12/30/21 03:04 Labs: Laboratory Results - last 24 hr 12/30/21 12/30/21 12/30/21 01:42 03:04 03:04 MCV 101.6 H MCH 31.7 MCHC 31.2 RDW 18.4 H Plt Count 386 MPV 9.9 Immature Gran % (Auto) 0.5 H Neut % (Auto) 81.1 H Lymph % (Auto) 10.5 L [place] % (Auto) 6.5 Eos % (Auto) 1.0 Baso % (Auto) 0.4 Lymph # (Auto) 1.0 L [place] # (Auto) 0.6 Eos # (Auto) 0.1 Baso # (Auto) 0.0 Abs Immat Gran (auto) 0.05 H Absolute Neuts (auto) 7.6 Absolute Nucleated RBC 0.000 Nucleated RBC % (auto) 0.0 PT 20.4 H Whole Blood PT 22.0 H INR 1.8 H Whole Blood INR 1.8 H Anion Gap Estim Creat Clear Calc Estimated GFR POC Glucose Random Glucose Lactic Acid Calcium Magnesium Total Bilirubin Direct Bilirubin AST ALT Alkaline Phosphatase Total Protein Albumin Urine Color Urine Appearance Urine pH Ur Specific [place] Urine Protein Urine Glucose (UA) Urine Ketones Urine Blood Urine Nitrite Ur Leukocyte Esterase Urine RBC Urine WBC Ur Squamous Epith Cells Urine Bacteria COVID-19 ([facility]) COVID-19 Clin Com Blood Type Antibody Screen 12/30/21 12/30/21 12/30/21 03:04 03:04 03:04 MCV MCH MCHC RDW Plt Count MPV Immature Gran % (Auto) Neut % (Auto) Lymph % (Auto) [place] % (Auto) Eos % (Auto) Baso % (Auto) Lymph # (Auto) [place] # (Auto) Eos # (Auto) Baso # (Auto) Abs Immat Gran (auto) Absolute Neuts (auto) Absolute Nucleated RBC Nucleated RBC % (auto) PT Whole Blood PT INR Whole Blood INR Anion Gap 10 L Estim Creat Clear Calc 71.7 Estimated GFR > 60 POC Glucose Random Glucose 56 L* Lactic Acid 0.8 Calcium 8.2 L D Magnesium 1.8 Total Bilirubin 0.5 Direct Bilirubin 0.2 AST 28 ALT < 6 Alkaline Phosphatase 103 D Total Protein 4.5 L Albumin 1.8 L Urine Color Urine Appearance Urine pH Ur Specific [place] Urine Protein Urine Glucose (UA) Urine Ketones Urine Blood Urine Nitrite Ur Leukocyte Esterase Urine RBC Urine WBC Ur Squamous Epith Cells Urine Bacteria COVID-19 ([facility]) Negative COVID-19 Clin Com See Note Blood Type Antibody Screen 12/30/21 12/30/21 12/30/21 03:05 03:53 03:58 MCV MCH MCHC RDW Plt Count MPV Immature Gran % (Auto) Neut % (Auto) Lymph % (Auto) [place] % (Auto) Eos % (Auto) Baso % (Auto) Lymph # (Auto) [place] # (Auto) Eos # (Auto) Baso # (Auto) Abs Immat Gran (auto) Absolute Neuts (auto) Absolute Nucleated RBC Nucleated RBC % (auto) PT Whole Blood PT INR Whole Blood INR Anion Gap Estim Creat Clear Calc Estimated GFR POC Glucose 51 L* Random Glucose Lactic Acid Calcium Magnesium Total Bilirubin Direct Bilirubin AST ALT Alkaline Phosphatase Total Protein Albumin Urine Color STRAW Urine Appearance CLEAR Urine pH 7.5 Ur Specific [place] 1.010 Urine Protein NEG Urine Glucose (UA) NEG Urine Ketones NEG Urine Blood TRACE Urine Nitrite NEG Ur Leukocyte Esterase NEG Urine RBC 0 Urine WBC 0-2 Ur Squamous Epith Cells TRACE Urine Bacteria NONE COVID-19 ([facility]) COVID-19 Clin Com Blood Type O Positive Antibody Screen NEGATIVE 12/30/21 12/30/21 12/30/21 04:33 05:41 06:42 MCV MCH MCHC RDW Plt Count MPV Immature Gran % (Auto) Neut % (Auto) Lymph % (Auto) [place] % (Auto) Eos % (Auto) Baso % (Auto) Lymph # (Auto) [place] # (Auto) Eos # (Auto) Baso # (Auto) Abs Immat Gran (auto) Absolute Neuts (auto) Absolute Nucleated RBC Nucleated RBC % (auto) PT Whole Blood PT INR Whole Blood INR Anion Gap Estim Creat Clear Calc Estimated GFR POC Glucose 157 H 69 148 H Random Glucose Lactic Acid Calcium Magnesium Total Bilirubin Direct Bilirubin AST ALT Alkaline Phosphatase Total Protein Albumin Urine Color Urine Appearance Urine pH Ur Specific [place] Urine Protein Urine Glucose (UA) Urine Ketones Urine Blood Urine Nitrite Ur Leukocyte Esterase Urine RBC Urine WBC Ur Squamous Epith Cells Urine Bacteria COVID-19 ([facility]) COVID-19 [place] Com Blood Type Antibody Screen 12/30/21 12/30/21 12/30/21 07:21 09:33 10:23 MCV MCH MCHC RDW Plt Count MPV Immature Gran % (Auto) Neut % (Auto) Lymph % (Auto) [place] % (Auto) Eos % (Auto) Baso % (Auto) Lymph # (Auto) [place] # (Auto) Eos # (Auto) Baso # (Auto) Abs Immat Gran (auto) Absolute Neuts (auto) Absolute Nucleated RBC Nucleated RBC % (auto) PT Whole Blood PT INR Whole Blood INR Anion Gap Estim Creat Clear Calc Estimated GFR POC Glucose 119 H 53 L* 185 H Random Glucose Lactic Acid Calcium Magnesium Total Bilirubin Direct Bilirubin AST ALT Alkaline Phosphatase Total Protein Albumin Urine Color Urine Appearance Urine pH Ur Specific [place] Urine Protein Urine Glucose (UA) Urine Ketones Urine Blood Urine Nitrite Ur Leukocyte Esterase Urine RBC Urine WBC Ur Squamous Epith Cells Urine Bacteria COVID-19 ([facility]) COVID-19 Clin Com Blood Type Antibody Screen Imaging Radiologist's Impressions: Impressions Head CT 12/30/21 02:55 IMPRESSION: No acute intracranial pathology. Head/Neck CTA 12/30/21 05:25 IMPRESSION: No acute vascular abnormalities are identified in the head and neck. No flow-limiting stenoses are identified. Pulmonary interstitial edema with small bilateral pleural effusions Assessment and Plan (1) Hypoglycemia: Status: Acute (2) Generalized anxiety disorder: Status: Acute (3) OCD (obsessive compulsive disorder): Status: Acute (4) MSSA bacteremia: Status: Acute (5) Sacral pressure ulcer: Status: Acute (6) Malnutrition: Status: Acute (7) Failure to thrive in adult: Status: Acute (8) Normocytic anemia: Status: Acute Plan 61-year-old female patient status post intramedullary nailing for left intertrochanteric fracture on 11/16/2021, recently discharged from [facility] on December 21 after being treated for MSSA bacteremia with prolonged bacteremia, initially treated with IV vanco followed by IV daptomycin and was discharged to rehab on IV Kefzol for total 4 weeks ending 01/15, patient was sent to [facility] due to generalized weakness and slurred speech and found to have hypoglycemia symptoms improved with D50 patient is now being admitted for continued hypoglycemia. Symptomatic hypoglycemia patient blood sugars improved but after discontinuing D5W trended down in mid 50s again therefore being admitted to hospital, patient has ongoing issues with nutrition, albumin remains low at 1.8 will re-consult clinical lab clerk continue Ensure can t.i.d. and Guille powder twice daily explained to patient again importance of good nutrition to fight infection and to regain strength to increase activity with recent hip fracture follow blood sugars/ continue IV D5W MSSA bacteremia continue IV cefazolin end date 01/15/ has PICC line chronic normocytic anemia continue iron and B12 supplement hematocrit close to baseline hold transfusion. status post IMN left intertrochanteric fracture will DC aspirin, analgesics as needed. severe protein calorie malnutrition/ failure to thrive continue supplements, nutrition consult generalized anxiety disorder/ obsessive-compulsive disorder was evaluated by psych during previous hospitalization and was placed on zyprexa 5 mg b.i.d.prn and Zyprexa 10 mg at bedtime for anxiety and Remeron 30 mg patient is requesting to wean down dosages of both Zyprexa and Remeron. will decrease dose of Zyprexa to 5 mg and Remeron to 15 mg and follow clinical course. Stage 3 sacral pressure injury continue foam dressing high-protein diet, and frequent position change VT prophylaxis with compression boots disposition return to short-term rehab code status discussed with patient in the presence of RN patient awake alert and wishes to be DNR DNI, MOLST form signed. patient will meet two inpatient night stay in hospital due to persistent hypoglycemia requiring IV dextrose due to poor by mouth intake. Quality Stroke Does the patient have a stroke diagnosis?: No VTE Prior VTE?: No VTE Risk Level:: Medical - moderate - high VTE Device Contraindication: N/A - Device Ordered VTE Drug Contraindication: Treatment Not Indicated
--- NOTE | 2021-12-30 11:10 | MHC.CM.PN ---
THIS CM ATTEMPTED TO CONTACT THE RESIDENTIAL EATING D/O UNIT AT [facility] [phone], NO ANSWER AND MESSAGE LEFT W/CM CONTACT INFO.
[2021-12-30 11:37] LABS: Glucose, Whole Blood 147 mg/dL (60-115)
[2021-12-30] MEDS: ceFAZolin Sodium/Dextrose,Iso 2 GM/50 ML PIGGYBACK IV ×2 (12:26→19:23)
[2021-12-30] MEDS: Dextrose 5 % and 0.9 % NaCl 1,000 ML 100 ML IVCONT (12:26)
--- NOTE | 2021-12-30 12:44 | MHC.CM.PN ---
PER VANTAGE OF , PT IS BEDHOLD HOWEVER THEY WILL NEED TO REAUTH HER FOR RETURN D/T INSURANCE.
--- NOTE | 2021-12-30 14:43 | PC.NURSE ---
at bedside with Dr Sellers when MD discussed Code status. Pt responded to questions appropriately. Responded to questions about Date, location and situation appropriately.
--- NOTE | 2021-12-30 14:44 | PC.NURSE ---
Pt has dry open area to coccyx, foam dsg applied. pt has 2 open areas to R forearm. Gauze and tegaderm applied.
--- NOTE | 2021-12-30 14:52 | MHC.CM.PN ---
EMR REVIEWED, CM MET W/PT AND HOSPITALIST AND PT COMPLETED A MOLST, MOLST PLACED IN CHART AND UPLOADED TO [employer], CM MET W/PT AND MOTHER WHO WAS AT BEDSIDE AND PT REPORTS SHE PREFERS TO GO HOME HOWEVER DOES NOT HAVE FIRST PCP APPT UNTIL BEGINNING OF MARCH SO CAN NOT HAVE HOME SERVICES AND [facility], PT IS BED HOLD HOWEVER WILL NEED TO BE REAUTHED. THIS CM DISCUSSED IF PT WOULD BE INTERESTED IN GETTING OUPT OR INPT TX FOR HER EATING DISORDER AND PT BECAME AGITATED ADAMANTLY REFUSED AND QUESTIONING WHY EVERYONE ALWAYS WANTS TO TALK ABOUT HER EATING, PT ENCOURAGED TO THINK ABOUT IT HOWEVER NOT LIKELY PT WOULD AGREE. D/C PLAN: RETURN TO [facility] W/ACTION FOR BLS TRANSPORT.
[2021-12-30 16:06] LABS: Glucose, Whole Blood 113 mg/dL (60-115)
--- NOTE | 2021-12-30 16:11 | MHC.CLN ---
NUTRITION CONSULT FOR PROTEIN CALORIE MALNUTRITION. DIET=REGULAR. DISCUSSED MEALS AND SUPPLEMENTS WITH PATIENT. DOES NOT WANT ABDIEL SUPPLEMENT. WANTS ENSURE TID, STRAWBERRY FLAVOR, UNOPENED, ON MEAL TRAY. [employer]ING [employer] AWARE OF PATIENT'S FOOD PREFERENCES FROM PRIOR ADMISSION. NUTRITION DX SEVERE MALNUTRITION IN THE CONTEXT OF CHRONIC ILLNESS (OCD, EATING DISORDER). ADDITIONAL INCREASED NUTRITION NEEDS WITH SACRAL PRESSURE INJURY.
[2021-12-30] MEDS: 0.9 % Sodium Chloride Flush 3 ML SYRINGE IVFLUSH (19:23)
[2021-12-30] MEDS: OLANZapine 5 MG TABLET PO (19:23)
[2021-12-30] MEDS: Mirtazapine 15 MG TABLET PO (19:23)
[2021-12-30 20:18] LABS: Glucose, Whole Blood 144 mg/dL (60-115)
[2021-12-31] VITALS (7 sets, daily range): BP systolic 110–171; BP diastolic 64–99; PULSE 77–98; RESP 17–18; TEMP 36.3–36.8; O2SAT 97–100
[2021-12-31 00:28] LABS: Glucose, Whole Blood 76 mg/dL (60-115)
[2021-12-31] MEDS: Dextrose 5 % and 0.9 % NaCl 1,000 ML 100 ML IVCONT (01:24)
[2021-12-31 01:31] LABS: Glucose, Whole Blood 97 mg/dL (60-115)
[2021-12-31] MEDS: ceFAZolin Sodium/Dextrose,Iso 2 GM/50 ML PIGGYBACK IV ×3 (03:25→20:22)
[2021-12-31] MEDS: Omeprazole 20 MG CAPSULE.DR PO (05:47)
--- NOTE | 2021-12-31 06:10 | PC.NURSE ---
Pt requested at first encounter to put her IVF on hold for the night as it makes her void a lot, educated on the importance to maintain favorable blood sugar level, but pt inssited, Dr. Dela Cruz was notified, agreed to pause fluids and to monitor POC every 2hr x2, IVF paused at 2200, POC checked at 12mn=76, pt is alert and conversant, offered OJ and tolerated, Dr. Dela Cruz was updated, IVF resumed, POC rechecked =97.
[2021-12-31 07:20] LABS: Glucose, Whole Blood 67 mg/dL (60-115)
[2021-12-31] MEDS: Cyanocobalamin (Vitamin B-12) 500 MCG TABLET PO (07:36)
[2021-12-31] MEDS: Cholecalciferol (Vitamin D3) 25 MCG TABLET PO (07:36)
[2021-12-31] MEDS: Multivitamin TABLET 1 TAB PO (07:36)
[2021-12-31 07:49] LABS: Glucose, Whole Blood 96 mg/dL (60-115)
--- NOTE | 2021-12-31 10:32 | P.PNIM_ITS ---
Subjective Subjective Date of Service: 12/31/21 Interval History: no acute complaints, requesting to cut short IV antibiotic duration, trying to eat better, denies nausea vomiting no abdominal pain no other acute issues overnight. Review of Systems Review of Systems: Yes all other systems are reviewed and are negative Physical Exam Vital Signs: Vital Signs: Last Vital Signs Temp 97.5 F 12/31/21 07:11 Pulse 77 12/31/21 07:11 Resp 18 12/31/21 07:11 BP 171/99 H 12/31/21 07:11 Pulse Ox 98 12/31/21 07:11 BMI result Body Mass Index 18.8 Const: Other: General? chachetic, awake alert x3, in no acute distress.? HEENT pupils equal round reactive to light and accommodation Neck supple no JVD. CVS? regular rate rhythm, Respiratory lungs clear to auscultation, no respiratory distress Gastrointestinal abdomen soft, nontender, bowel sounds audible, no guarding , no rigidity. Extremities no edema. Neuro nonfocal , speech clear cranial nerve 2-12 intact. Skin? multiple bruises both feet and extremities/ch. sacral pressure ulcer Psych appropriate affect. Objective Data Active Medications Acetaminophen (Acetaminophen 325 Mg Tablet) 650 mg PO Q6H PRN PRN Reason: Pain, Mild (Pain Scale 1-3) Cefazolin Sodium/Dextrose (Cefazolin Sodium/Dextrose,Iso 2 Gm/50 Ml Piggyback) 2 gm IV Q8H ON LICENSE OF [facility] Last Admin: 12/31/21 03:25 Dose: 2 gm Documented by: BOBBY Cyanocobalamin (Cyanocobalamin (Vitamin B-12) 500 Mcg Tablet) 500 mcg PO DAILY ON LICENSE OF [facility] Last Admin: 12/31/21 07:36 Dose: 500 mcg Documented by: JUDE Dextrose (Dextrose 50 % 25 Gm/50 Ml Vial) 25 gm IVPUSH Q15M PRN PRN Reason: per Hypoglycemia Standing Ord. Ferrous Sulfate (Ferrous Sulfate 324 Mg Rey.) 324 mg PO DAILY ON LICENSE OF [facility] Last Admin: 12/31/21 08:08 Dose: Not Given Documented by: JUDE Non-Admin Reason: Patient Refused Mirtazapine (Mirtazapine 15 Mg Tablet) 15 mg PO DAILY@1999 ON LICENSE OF [facility] Last Admin: 12/30/21 19:23 Dose: 15 mg Documented by: BOBBY Multivitamins/Vitamin C (Multivitamin Tablet) 1 tab PO DAILY ON LICENSE OF [facility] Last Admin: 12/31/21 07:36 Dose: 1 tab Documented by: JUDE Olanzapine (Olanzapine 5 Mg Tablet) 5 mg PO Q12H PRN PRN Reason: agitation, anxiety Olanzapine (Olanzapine 5 Mg Tablet) 5 mg PO BEDTIME ON LICENSE OF [facility] Last Admin: 12/30/21 19:23 Dose: 5 mg Documented by: BOBBY Omeprazole (Omeprazole 20 Mg Capsule.Dr) 20 mg PO DAILY@0630 ON LICENSE OF [facility] Last Admin: 12/31/21 05:47 Dose: 20 mg Documented by: BOBBY Ondansetron HCl (Ondansetron Hcl 4 Mg/2 Ml Vial) 4 mg IVPUSH Q8H PRN PRN Reason: Nausea Oxycodone HCl (Oxycodone Hcl Immed Release 5 Mg Tablet) 5 mg PO Q6H PRN PRN Reason: Pain, Moderate (Pain Scale 4-6 Sodium Chloride (0.9 % Sodium Chloride Flush 3 Ml Syringe) 3 ml IVFLUSH QSHIFT ON LICENSE OF [facility] Last Admin: 12/31/21 07:37 Dose: Not Given Documented by: JUDE Non-Admin Reason: IV Running Vitamin D (Cholecalciferol (Vitamin D3) 25 Mcg Tablet) 25 mcg PO DAILY ON LICENSE OF [facility] Last Admin: 12/31/21 07:36 Dose: 25 mcg Documented by: JUDE Labs CBC & Chem 7: 12/30/21 03:04 12/30/21 03:04 Labs: Laboratory Results - last 24 hr 12/30/21 12/30/21 12/30/21 11:10 15:30 20:04 POC Glucose 147 H 113 144 H 12/31/21 12/31/21 12/31/21 00:23 01:20 07:15 POC Glucose 76 97 67 12/31/21 07:45 POC Glucose 96 Microbiology Microbiology Results: Microbiology 12/30/21 03:04 Blood Culture - Preliminary Blood - Venous No growth after 24 hours. 12/30/21 03:04 Blood Culture - Preliminary Blood - Venous No growth after 24 hours. Assessment and Plan (1) Hypoglycemia: Status: Acute (2) Generalized anxiety disorder: Status: Acute (3) OCD (obsessive compulsive disorder): Status: Acute (4) MSSA bacteremia: Status: Acute (5) Sacral pressure ulcer: Status: Acute (6) Normocytic anemia: Status: Acute (7) Cachexia: Status: Acute (8) Malnutrition: Status: Acute (9) Failure to thrive in adult: Status: Acute Plan 61-year-old female patient status post intramedullary nailing for left intertrochanteric fracture on 11/16/2021, recently discharged from [facility] on December 21 after being treated for MSSA bacteremia with prolonged bacteremia, initially treated with IV vanco followed by IV daptomycin and was discharged to rehab on IV Kefzol for total 4 weeks? ending 01/15, patient was sent to [place] [facility] due to generalized weakness and slurred speech and found to have hypoglycemia symptoms improved with D50 patient is now being admitted for continued hypoglycemia. ?Symptomatic hypoglycemia ?blood sugars improving , Patient trying to eat better, will DC iv D5W and monitor for next 24 hours ,albumin remains low at 1.8 but improved since discharge (was 1.5) ?seen by seaman officer will continue Ensure can t.i.d., patient refused to take Guille powder twice daily ?explained to patient again importance of good nutrition to fight infection and to regain strength to increase activity with recent hip fracture ?follow blood sugars and resume D5W noted to have recurrent hypoglycemia ?MSSA? bacteremia ?continue IV cefazolin end date 01/15/ has PICC line, case discussed with Dr. Milian she recommend 4 weeks of antibiotic due to prolong bacteremia informed patient about ID recommendation ?chronic normocytic anemia ?continue iron and B12 supplement hematocrit close to baseline, hold transfusion. ?status post IMN left intertrochanteric fracture 11/16 ? continue analgesics as needed. ?severe protein calorie malnutrition/ failure to thrive ?continue supplements, being followed by seaman officer ?generalized anxiety disorder/ obsessive-compulsive disorder was evaluated by psych during previous hospitalization and was placed on zyprexa 5 mg b.i.d.prn and Zyprexa 10 mg at bedtime for anxiety and Remeron 30 mg dose of Zyprexa reduced to 5 mg at bedtime and Remeron to 15 mg as per patient's request, follow clinical course. ?Stage 3? sacral pressure injury continue foam dressing high-protein diet, and frequent position change ?VT prophylaxis with compression boots ?disposition return to short-term rehab once blood sugars are stable code status discussed with patient in the presence of RN patient awake alert and wishes to be DNR DNI,? MOLST form signed. patient will require continued inpatient hospitalization due to persistent hypoglycemia? requiring IV dextrose due to poor by mouth intake. Quality Stroke Does the patient have a stroke diagnosis?: No VTE Prior VTE?: No VTE Risk Level:: Medical - moderate - high VTE Device Contraindication: N/A - Device Ordered VTE Drug Contraindication: Treatment Not Indicated
[2021-12-31 11:35] LABS: Glucose, Whole Blood 100 mg/dL (60-115)
[2021-12-31] MEDS: 0.9 % Sodium Chloride Flush 3 ML SYRINGE IVFLUSH (15:54)
[2021-12-31 16:01] LABS: Glucose, Whole Blood 98 mg/dL (60-115)
[2021-12-31] MEDS: OLANZapine 5 MG TABLET PO (20:13)
[2021-12-31] MEDS: Mirtazapine 15 MG TABLET PO (20:13)
[2021-12-31 20:31] LABS: Glucose, Whole Blood 139 mg/dL (60-115)
--- NOTE | 2022-01-01 01:01 | PC.NURSE ---
Patient discussed her concern over low blood sugars. She requested OJ stating she would like to try to make sure her sugar didnt drop, noting she doesnt like IVF. She drank approx 4oz.
[2022-01-01 03:25] VITALS: BP 133/69; PULSE 97; RESP 18; TEMP 36.4; O2SAT 97
[2022-01-01] MEDS: ceFAZolin Sodium/Dextrose,Iso 2 GM/50 ML PIGGYBACK IV ×3 (05:06→20:24)
[2022-01-01] MEDS: Omeprazole 20 MG CAPSULE.DR PO (06:49)
[2022-01-01 07:19] VITALS: BP 146/80; PULSE 74; RESP 18; TEMP 36.2; O2SAT 99
[2022-01-01 07:33] LABS: Glucose, Whole Blood 56 mg/dL (60-115)
[2022-01-01] MEDS: 0.9 % Sodium Chloride Flush 3 ML SYRINGE IVFLUSH (07:54)
[2022-01-01] MEDS: Dextrose 5 % and 0.9 % NaCl 1,000 ML 50 ML IVCONT (07:54)
[2022-01-01] MEDS: Cholecalciferol (Vitamin D3) 25 MCG TABLET PO (07:55)
[2022-01-01] MEDS: Multivitamin TABLET 1 TAB PO (07:55)
[2022-01-01] MEDS: Cyanocobalamin (Vitamin B-12) 500 MCG TABLET PO (07:55)
[2022-01-01 07:58] LABS: Glucose, Whole Blood 88 mg/dL (60-115)
--- NOTE | 2022-01-01 08:15 | HO.PM.IMPN ---
Subjective Subjective Date of Service: 01/01/22 Interval History: hypoglyemia Review of Systems fs 50's this morning , otherwise asymptomatic, denies any chest pain shortness breath fever or chills. Encouraged for p.o. intake Physical Exam Vital Signs: Vital Signs: Last Vital Signs Temp 97.1 F 01/01/22 07:19 Pulse 74 01/01/22 07:19 Resp 18 01/01/22 07:19 BP 146/80 H 01/01/22 07:19 Pulse Ox 99 01/01/22 07:19 BMI result Body Mass Index 18.8 General:thin , awake alert x3, in no acute distress.? HEENT pupils equal round reactive to light and accommodation. CVS? regular rate rhythm, chest:clear to auscultation, no respiratory distress GI:abdomen soft, nontender, bowel sounds audible. Extremities no edema. Neuro: nonfocal , speech clear cranial nerve 2-12 intact. Skin? multiple bruises both feet and extremities/ch. sacral pressure ulcer Psych appropriate affect. Objective Data Active Medications Acetaminophen (Acetaminophen 325 Mg Tablet) 650 mg PO Q6H PRN PRN Reason: Pain, Mild (Pain Scale 1-3) Cyanocobalamin (Cyanocobalamin (Vitamin B-12) 500 Mcg Tablet) 500 mcg PO DAILY COUNTS INCLUDE 234 BEDS AT THE [facility] Last Admin: 01/01/22 07:55 Dose: 500 mcg Documented by: PER Dextrose (Dextrose 50 % 25 Gm/50 Ml Vial) 25 gm IVPUSH Q15M PRN PRN Reason: per Hypoglycemia Standing Ord. Ferrous Sulfate (Ferrous Sulfate 324 Mg Tablet.) 324 mg PO DAILY COUNTS INCLUDE 234 BEDS AT THE [facility] Last Admin: 01/01/22 07:57 Dose: Not Given Documented by: PER Non-Admin Reason: Patient Refused Cefazolin Sodium/Dextrose (Ancef) 2 gm in 50 mls @ 100 mls/hr IV Q8H COUNTS INCLUDE 234 BEDS AT THE [facility] Last Infusion: 01/01/22 05:55 Dose: 0 mls/hr Documented by: CHUNG Dextrose/Sodium Chloride (D5ns) 1,000 mls @ 50 mls/hr IVCONT .Q20H COUNTS INCLUDE 234 BEDS AT THE [facility] Last Admin: 01/01/22 07:54 Dose: 50 mls/hr Documented by: PER Mirtazapine (Mirtazapine 15 Mg Tablet) 15 mg PO DAILY@1999 COUNTS INCLUDE 234 BEDS AT THE [facility] Last Admin: 12/31/21 20:13 Dose: 15 mg Documented by: MATT Multivitamins/Vitamin C (Multivitamin Tablet) 1 tab PO DAILY COUNTS INCLUDE 234 BEDS AT THE [facility] Last Admin: 01/01/22 07:55 Dose: 1 tab Documented by: PER Olanzapine (Olanzapine 5 Mg Tablet) 5 mg PO Q12H PRN PRN Reason: agitation, anxiety Olanzapine (Olanzapine 5 Mg Tablet) 5 mg PO BEDTIME COUNTS INCLUDE 234 BEDS AT THE [facility] Last Admin: 12/31/21 20:13 Dose: 5 mg Documented by: MATT Omeprazole (Omeprazole 20 Mg Capsule.Dr) 20 mg PO DAILY@0630 COUNTS INCLUDE 234 BEDS AT THE [facility] Last Admin: 01/01/22 06:49 Dose: 20 mg Documented by: CHUNG Ondansetron HCl (Ondansetron Hcl 4 Mg/2 Ml Vial) 4 mg IVPUSH Q8H PRN PRN Reason: Nausea Oxycodone HCl (Oxycodone Hcl Immed Release 5 Mg Tablet) 5 mg PO Q6H PRN PRN Reason: Pain, Moderate (Pain Scale 4-6 Sodium Chloride (0.9 % Sodium Chloride Flush 3 Ml Syringe) 3 ml IVFLUSH QSHIFT COUNTS INCLUDE 234 BEDS AT THE [facility] Last Admin: 01/01/22 07:54 Dose: 3 ml Documented by: PER Vitamin D (Cholecalciferol (Vitamin D3) 25 Mcg Tablet) 25 mcg PO DAILY COUNTS INCLUDE 234 BEDS AT THE [facility] Last Admin: 01/01/22 07:55 Dose: 25 mcg Documented by: PER Labs CBC & Chem 7: 12/30/21 03:04 12/30/21 03:04 Labs: Laboratory Results - last 24 hr 12/31/21 12/31/21 12/31/21 11:27 15:41 19:34 POC Glucose 100 98 139 H 01/01/22 01/01/22 07:28 07:53 POC Glucose 56 L* 88 Microbiology Microbiology Results: Microbiology 12/30/21 03:04 Blood Culture - Preliminary Blood - Venous No growth after 48 hours. 12/30/21 03:04 Blood Culture - Preliminary Blood - Venous No growth after 48 hours. Assessment and Plan (1) Hypoglycemia: Status: Acute Plan 61-year-old female patient status post intramedullary nailing for left intertrochanteric fracture on 11/16/2021, recently discharged from [facility] on December 21 after being treated for MSSA bacteremia with prolonged bacteremia, initially treated with IV vanco followed by IV daptomycin and was discharged to rehab on IV Kefzol for total 4 weeks? ending 01/15, patient was sent to [place] [facility] due to generalized weakness and slurred speech and found to have hypoglycemia symptoms improved with D50 patient is now being admitted for continued hypoglycemia. 1.?Symptomatic hypoglycemia: ?blood sugars improving ,? Patient trying to eat better, will DC iv D5W? and monitor for next 24 hours ,albumin remains low at 1.8 but improved since discharge (was 1.5) ?seen by ride mechanic will continue Ensure can t.i.d.,? patient refused to take Guille powder twice daily ?explained to patient again importance of good nutrition to fight infection and to regain strength to increase activity with recent hip fracture ?follow blood sugars? and resumed D5W noted to have recurrent hypoglycemia 2.?MSSA? bacteremia:continue IV cefazolin end date 01/15/ has PICC line, case discussed with Dr. Milian she recommend 4 weeks of antibiotic due to prolong bacteremia informed patient about ID recommendation 3.?chronic normocytic anemia:continue iron and B12 supplement hematocrit close to baseline, hold transfusion. ?4.status post IMN left intertrochanteric fracture 11/16 ? continue analgesics as needed. 5.?severe protein calorie malnutrition/ failure to thrive:continue supplements, being followed by ride mechanic 6.?generalized anxiety disorder/ obsessive-compulsive disorder was evaluated by psych during previous hospitalization and was placed on zyprexa 5 mg b.i.d.prn and Zyprexa 10 mg at bedtime for anxiety and Remeron 30 mg ?dose of Zyprexa? reduced to 5 mg? at bedtime and Remeron to 15 mg? as per patient's request, follow clinical course. ?7.Stage 3? sacral pressure injury continue foam dressing high-protein diet, and frequent position change DVT prophylaxis with compression boots ?disposition return to short-term rehab? once blood sugars are stable code status discussed with patient in the presence of RN patient awake alert and wishes to be DNR DNI,? MOLST form signed. patient will require continued inpatient hospitalization due to persistent hypoglycemia? requiring IV dextrose due to poor by mouth intake. Quality Stroke Does the patient have a stroke diagnosis?: No VTE Prior VTE?: No VTE Risk Level:: Medical - moderate - high VTE Device Contraindication: N/A - Device Ordered VTE Drug Contraindication: Treatment Not Indicated
[2022-01-01 11:28] VITALS: BP 133/78; PULSE 76; RESP 18; TEMP 36.3; O2SAT 100
[2022-01-01 11:39] LABS: Glucose, Whole Blood 83 mg/dL (60-115)
[2022-01-01 15:17] VITALS: BP 135/79; PULSE 82; RESP 18; O2SAT 98
[2022-01-01 16:27] LABS: Glucose, Whole Blood 101 mg/dL (60-115)
[2022-01-01 18:56] VITALS: BP 129/70; PULSE 94; RESP 18; TEMP 37.2; O2SAT 100
[2022-01-01] MEDS: OLANZapine 5 MG TABLET PO (20:24)
[2022-01-01] MEDS: Mirtazapine 15 MG TABLET PO (20:24)
[2022-01-01 20:28] LABS: Glucose, Whole Blood 95 mg/dL (60-115)
[2022-01-02] VITALS: BP 120/68; PULSE 79; RESP 17; TEMP 36.6; O2SAT 99
[2022-01-02 04:00] VITALS: BP 137/72; PULSE 71; RESP 17; TEMP 36.4; O2SAT 99
[2022-01-02] MEDS: ceFAZolin Sodium/Dextrose,Iso 2 GM/50 ML PIGGYBACK IV ×3 (04:10→20:02)
[2022-01-02] MEDS: Omeprazole 20 MG CAPSULE.DR PO (05:43)
[2022-01-02 07:17] VITALS: BP 114/77; PULSE 83; RESP 18; TEMP 36.5; O2SAT 100
[2022-01-02 07:36] LABS: Glucose, Whole Blood 67 mg/dL (60-115)
[2022-01-02 07:37] LABS: Glucose, Whole Blood 85 mg/dL (60-115)
[2022-01-02] MEDS: Multivitamin TABLET 1 TAB PO (08:38)
[2022-01-02] MEDS: Cyanocobalamin (Vitamin B-12) 500 MCG TABLET PO (08:38)
[2022-01-02] MEDS: Cholecalciferol (Vitamin D3) 25 MCG TABLET PO (08:38)
--- NOTE | 2022-01-02 11:06 | MHC.CLN ---
F/U DIET=REGULAR. SUPPLEMENT ENSURE TID, STRAWBERRY FLAVOR. PROVIDES ADDITIONAL 1050 KCAL, 60 G PROTEIN. INTAKE AT MEALS MOSTLY 25-50%. POC BLOOD SUGARS BEING MONITORED FOR HYPOGLYCEMIA. REQUIRES IV DEXTROSE DUE TO POOR PO. SEE NURSING NOTE ABOUT IV FLUIDS AND PATIENT WILLING TO TAKE ORANGE JUICE. NUTRITION DX SEVERE MALNUTRITION IN THE CONTEXT OF CHRONIC ILLNESS (OCD, EATING DISORDER). ADDITIONAL INCREASED NUTRITION NEEDS WITH SACRAL PRESSURE INJURY. CONTINUE TO FOLLOW LABS, INTAKE, WOUND HEALING.
[2022-01-02 11:19] LABS: Glucose, Whole Blood 54 mg/dL (60-115)
[2022-01-02 11:20] LABS: Glucose, Whole Blood 67 mg/dL (60-115)
[2022-01-02 12:00] VITALS: BP 116/66; PULSE 83; RESP 18; TEMP 36.6; O2SAT 100
[2022-01-02 12:02] LABS: Glucose, Whole Blood 77 mg/dL (60-115)
--- NOTE | 2022-01-02 13:07 | PC.NURSE ---
Skin/wound assessment completed. Patient has a stage 2 coccyx pressure ulcer with pink and white wound bed. Woundres gel applied covered with foam. Patient also has a skin tear to top of right foot. Woundres' gel applied covered with foam dressing. Patient is very thin and frail. No other skin issues noted at this time.
--- NOTE | 2022-01-02 15:17 | P.PNIM_ITS ---
Subjective Subjective Date of Service: 01/03/22 Interval History: being followed for hypoglycemia offers no acute complaints wants to stay in the hospital to finish the course of antibiotic keep insisting on decreasing the duration of IV antibiotics, denies nausea vomiting tolerating diet, no acute events overnight Review of Systems Review of Systems: Yes all other systems are reviewed and are negative Physical Exam Vital Signs: Vital Signs: Last Vital Signs Temp 97.9 F 01/02/22 12:00 Pulse 83 01/02/22 12:00 Resp 18 01/02/22 12:00 BP 116/66 01/02/22 12:00 Pulse Ox 100 01/02/22 12:00 BMI result Body Mass Index 18.8 Const: Other: General? chachetic, awake alert x3, in no acute distress.? Neck supple no JVD. CVS? regular rate rhythm, Respiratory lungs clear to auscultation, no respiratory distress Gastrointestinal abdomen soft, nontender, bowel sounds audible, no guarding , no rigidity. Extremities no edema. Neuro nonfocal , speech clear cranial nerve 2-12 intact. Skin? multiple bruises both feet and extremities/ch. sacral pressure ulcer Psych appropriate affect. Objective Data Active Medications Acetaminophen (Acetaminophen 325 Mg Tablet) 650 mg PO Q6H PRN PRN Reason: Pain, Mild (Pain Scale 1-3) Cyanocobalamin (Cyanocobalamin (Vitamin B-12) 500 Mcg Tablet) 500 mcg PO DAILY COUNT INCLUDES THE [facility] Last Admin: 01/02/22 08:38 Dose: 500 mcg Documented by: PRABHJOT Dextrose (Dextrose 50 % 25 Gm/50 Ml Vial) 25 gm IVPUSH Q15M PRN PRN Reason: per Hypoglycemia Standing Ord. Ferrous Sulfate (Ferrous Sulfate 324 Mg Tablet.Dr) 324 mg PO DAILY COUNT INCLUDES THE [facility] Last Admin: 01/02/22 08:38 Dose: Not Given Documented by: PRABHJOT Non-Admin Reason: Patient Refused Cefazolin Sodium/Dextrose (Ancef) 2 gm in 50 mls @ 100 mls/hr IV Q8H COUNT INCLUDES THE [facility] Last Infusion: 01/02/22 11:32 Dose: 0 mls/hr Documented by: PRABHJOT Dextrose/Sodium Chloride (D5ns) 1,000 mls @ 50 mls/hr IVCONT .Q20H COUNT INCLUDES THE [facility] Last Admin: 01/02/22 04:19 Dose: Not Given Documented by: JOSETTE Non-Admin Reason: discontinued per nurse and per md note\ Mirtazapine (Mirtazapine 15 Mg Tablet) 15 mg PO DAILY@1999 COUNT INCLUDES THE [facility] Last Admin: 01/01/22 20:24 Dose: 15 mg Documented by: JOSETTE Multivitamins/Vitamin C (Multivitamin Tablet) 1 tab PO DAILY COUNT INCLUDES THE [facility] Last Admin: 01/02/22 08:38 Dose: 1 tab Documented by: PRABHJOT Olanzapine (Olanzapine 5 Mg Tablet) 5 mg PO Q12H PRN PRN Reason: agitation, anxiety Olanzapine (Olanzapine 5 Mg Tablet) 5 mg PO BEDTIME COUNT INCLUDES THE [facility] Last Admin: 01/01/22 20:24 Dose: 5 mg Documented by: JOSETTE Omeprazole (Omeprazole 20 Mg Capsule.Dr) 20 mg PO DAILY@629 COUNT INCLUDES THE [facility] Last Admin: 01/02/22 05:43 Dose: 20 mg Documented by: JOSETTE Ondansetron HCl (Ondansetron Hcl 4 Mg/2 Ml Vial) 4 mg IVPUSH Q8H PRN PRN Reason: Nausea Oxycodone HCl (Oxycodone Hcl Immed Release 5 Mg Tablet) 5 mg PO Q6H PRN PRN Reason: Pain, Moderate (Pain Scale 4-6 Sodium Chloride (0.9 % Sodium Chloride Flush 3 Ml Syringe) 3 ml IVFLUSH QSHIFT COUNT INCLUDES THE [facility] Last Admin: 01/02/22 15:03 Dose: Not Given Documented by: PRABHJOT Non-Admin Reason: picc Vitamin D (Cholecalciferol (Vitamin D3) 25 Mcg Tablet) 25 mcg PO DAILY COUNT INCLUDES THE [facility] Last Admin: 01/02/22 08:38 Dose: 25 mcg Documented by: PRABHJOT Labs CBC & Chem 7: 12/30/21 03:04 12/30/21 03:04 Labs: Laboratory Results - last 24 hr 01/01/22 01/01/22 01/02/22 15:20 19:59 07:10 POC Glucose 101 95 67 01/02/22 01/02/22 01/02/22 07:31 10:43 11:14 POC Glucose 85 54 L* 67 01/02/22 11:45 POC Glucose 77 Assessment and Plan (1) MSSA bacteremia: Status: Acute Plan 61-year-old female patient status post intramedullary nailing for left intertrochanteric fracture on 11/16/2021, recently discharged from [facility] on December 21 after being treated for MSSA bacteremia with prolonged bacteremia, initially treated with IV vanco followed by IV daptomycin and was discharged to rehab on IV Kefzol for total 4 weeks? ending 01/15, patient was sent to [place] [facility] due to generalized weakness and slurred speech and found to have hypoglycemia symptoms improved with D50 patient is now being admitted for continued hypoglycemia. 1.?Symptomatic hypoglycemia: ?blood sugars improved, eating better, s/p iv D5W?,albumin remains low at 1.8 but improved since discharge (was 1.5) ?seen by computer operations technician continue Ensure can t.i.d.,? patient refused to take Guille powder twice daily patient aware of importance of good nutrition to fight infection and to recuperate from hip fracture 2.?MSSA? bacteremia:continue IV cefazolin end date 01/15/ has PICC line, case discussed with Dr. Milian she recommend 4 weeks of antibiotic due to prolong bacteremia informed patient about ID recommendation 3.?chronic normocytic anemia:continue iron and B12 supplement hematocrit close to baseline, hold transfusion. ?4.status post IMN left intertrochanteric fracture 11/16 ? continue analgesics as needed. 5.?severe protein calorie malnutrition/ failure to thrive:continue supplements, being followed by computer operations technician 6.?generalized anxiety disorder/ obsessive-compulsive disorder was evaluated by psych during previous hospitalization and was placed on zyprexa 5 mg b.i.d.prn and Zyprexa 10 mg at bedtime for anxiety and Remeron 30 mg ?dose of Zyprexa? reduced to 5 mg? at bedtime and Remeron to 15 mg? as per patient's request, patient tolerating current dosage. ?7.Stage 3? sacral pressure injury continue foam dressing high-protein diet, and frequent position change. DVT prophylaxis with compression boots ?disposition return to short-term rehab? code status DNR DNI will need continued inpatient hospitalization for monitoring of hypoglycemia/ social work case manager looking for rehab bed for safe discharge Quality Stroke Does the patient have a stroke diagnosis?: No VTE Prior VTE?: No VTE Risk Level:: Medical - moderate - high VTE Device Contraindication: N/A - Device Ordered VTE Drug Contraindication: Treatment Not Indicated
--- NOTE | 2022-01-02 15:30 | MHC.CM.PN ---
THIS POLISHING MACHINE OPERATOR HELPER MET WITH PATIENT AND MOTHER - IN ROOM (PER PATIENT REQUEST). PATIENT ASKS TO STAY THROUGH THE REMAINDER OF HER IV ABX. T/W INFORMED HER THAT THIS DOES NOT MEET HOSPITAL LEVEL OF CARE. PATIENT ASKED IF SHE CAN RETURN HOME AND SHE WAS REMINDED THAT BECAUSE SHE DOES NOT HAVE A SECURED PCP AT THIS TIME, SHE IS NOT ABLE TO OBTAIN SERVICES NEEDED IN THE HOME. PATIENT THEN ASKED IF SHE CAN DC TO ANOTHER FACILITY AND SHE WAS THEN REMINDED THAT SHE IS A BEDHOLD ([employer] [facility] [employer] [facility]) AT [facility] AND THERE ARE NO THERE BED OFFERS. PATIENT TELLS T/W THAT HER BLOOD GLUCOSE IS BEING MONITORED HERE AND SHE FEELS SHE SHOULD STAY FOR THAT. PATIENT REMINDED THAT THIS LEVEL OF CARE CAN BE MANAGED AT SNF. PATIENT IS AWARE THAT ONCE INSURANCE AUTH IS SECURED, PATIENT WILL DC MOTHER ALSO PRESENT AND AWARE.
[2022-01-02 16:00] VITALS: BP 122/62; PULSE 87; RESP 16; TEMP 37.1; O2SAT 98
[2022-01-02 16:30] LABS: Glucose, Whole Blood 104 mg/dL (60-115)
[2022-01-02 19:23] VITALS: BP 110/68; PULSE 91; RESP 16; TEMP 36.8; O2SAT 99
[2022-01-02 19:54] LABS: Glucose, Whole Blood 139 mg/dL (60-115)
[2022-01-02] MEDS: OLANZapine 5 MG TABLET PO (20:02)
[2022-01-02] MEDS: bisacodyL 5 MG TABLET.DR PO (20:02)
[2022-01-02] MEDS: Mirtazapine 15 MG TABLET PO (20:02)
[2022-01-03] VITALS: BP 140/75; PULSE 80; RESP 17; TEMP 36.5; O2SAT 98
[2022-01-03 03:48] VITALS: BP 128/67; PULSE 79; RESP 18; TEMP 36.4; O2SAT 100
[2022-01-03] MEDS: ceFAZolin Sodium/Dextrose,Iso 2 GM/50 ML PIGGYBACK IV (03:59)
[2022-01-03] MEDS: Omeprazole 20 MG CAPSULE.DR PO (05:42)
[2022-01-03 08:00] VITALS: BP 113/68; PULSE 102; RESP 18; TEMP 37.3; O2SAT 100
[2022-01-03 08:09] LABS: Glucose, Whole Blood 64 mg/dL (60-115)
[2022-01-03 08:09] LABS: Glucose, Whole Blood 84 mg/dL (60-115)
[2022-01-03] MEDS: Cholecalciferol (Vitamin D3) 25 MCG TABLET PO (08:56)
[2022-01-03] MEDS: Cyanocobalamin (Vitamin B-12) 500 MCG TABLET PO (08:56)
[2022-01-03] MEDS: Multivitamin TABLET 1 TAB PO (08:56)
[2022-01-03 10:37] LABS: Glucose, Whole Blood 155 mg/dL (60-115)
[2022-01-03 10:52] VITALS: BP 118/59; PULSE 82; RESP 18; TEMP 36.9; O2SAT 100
--- NOTE | 2022-01-03 12:34 | MHC.CM.PN ---
PATIENT TO RETURN HOME TODAY AFTER HER IV DAPTO ADMINISTRATION MOTHER IS IN ROOM TO TRANSPORT PATIENT WILL THEN COME IN DAILY TO [facility] AND RECEIVE HER QD ABX. END DATE IS 01/16/22 AND HER PICC LINE WILL THEN BE REMOVED.
--- NOTE | 2022-01-03 14:27 | PM.DS ---
DS: Providers Provider Date of Service: 01/03/22 Date of admission: 12/30/21 10:06 Primary care physician: Unknown Physician Consults: 01/03/22 10:50 Consult to Infectious Diseases Routine Consulting Provider: Julia Milian Reason for consultation: mssa bacteremia Has provider been notified: Yes DS: Diagnosis Discharge Diagnosis (1) MSSA bacteremia: Status: Acute DS: Summary Hospital Course Hospital Course: Chief Complaint:? slurred speech and difficulty moving 61-year-old female patient? recently discharged from [facility] on December 21 after being managed for profound anemia requiring 4 units of packed RBC, noted to have severe protein calorie malnutrition with significant hypoalbuminemia as well as? treated for MSSA bacteremia, from skin? infection was placed on? PICC line for 4 weeks of IV Kefzol and was transferred to rehab facility, patient was sent from rehab as she was noted to have slurred speech and was not moving both upper or lower extremities, in the emergency room patient was talking without difficulty moving all 4 extremities she was noted to have blood sugar in low 50s therefore she was treated with D50 and IV fluid was initiated, CT head was unremarkable after patient placed on IV D5W blood sugars improved but soon after stopping IV drip patient blood sugar trended down again in low 50 range despite eating breakfast therefore patient will be admitted for continued monitoring and treatment of hypoglycemia, patient home vitals remained stable except for 1 episode of low blood pressure 86/46 that improved with IV fluids, there was no evidence of sepsis with a normal WBC count hematocrit is at baseline, urinalysis is unremarkable, as per patient she has been doing fine in rehab was participating with physical therapy ambulating she does not recall what happened to her according to her she has been eating good and was feeling ready to be discharged from rehab facility, patient keep requesting to shorten the duration of her IV antibiotics and wishes to be discharged home she has been on answering questions appropriately and is aware of place person and time, but keeps repeating she does not understand why she needs to be on prolonged course of antibiotics and why she needs rehab. 61-year-old female patient status post intramedullary nailing for left intertrochanteric fracture on 11/16/2021, recently discharged from [facility] on December 21 after being treated for MSSA bacteremia with prolonged bacteremia, initially treated with IV vanco followed by IV daptomycin and was discharged to rehab on IV Kefzol for total 4 weeks? ending 01/15, patient was sent to [facility] due to generalized weakness and slurred speech and found to have hypoglycemia symptoms improved with D50 patient admitted for continued hypoglycemia. 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 2. in regard to recently diagnosed?MSSA? bacteremia,IV antibiotic transition to IV daptomycin so patient can be discharged home and receive IV at short-stay surgery she has been recommended to check BMP and CPK next week end date January 15. 3.?chronic normocytic anemia:continue iron and B12 supplement hematocrit close to baseline. 4.status post IMN left intertrochanteric fracture 11/16 continue analgesics as needed. 5.?severe protein calorie malnutrition/ failure to thrive:continue supplements, discussed importance of good nutrition. 6.?generalized anxiety disorder/ obsessive-compulsive disorder was evaluated by psych during previous hospitalization and was placed on zyprexa 5 mg b.i.d.prn and Zyprexa 10 mg at bedtime for anxiety and Remeron 30 mg ?dose of Zyprexa? reduced to 5 mg? at bedtime and Remeron to 15 mg? as per patient's request,? patient tolerating current dosage, recommend close outpatient follow-up with PCP. ?7.Stage 3? sacral pressure injury continue foam dressing high-protein diet, and frequent position change. Time Spent with Patient Time attestation: Total time spent providing and/or coordinating discharge services: Discharge coordination time: Greater than 30 minutes Quality: Stroke Does the patient have a stroke diagnosis?: No Physical Exam Vital Signs: Vital Signs: Last Vital Signs Temp 98.5 F 01/03/22 10:52 Pulse 82 01/03/22 10:52 Resp 18 01/03/22 10:52 BP 118/59 L 01/03/22 10:52 Pulse Ox 100 01/03/22 10:52 BMI result Body Mass Index 18.8 Const: Other: General? chachetic, awake alert x3, in no acute distress.? Neck supple no JVD. CVS? regular rate rhythm, Respiratory lungs clear to auscultation, no respiratory distress Gastrointestinal abdomen soft, nontender, bowel sounds audible, no guarding , no rigidity. Extremities no edema. Neuro nonfocal , speech clear cranial nerve 2-12 intact. Skin? multiple bruises both feet and extremities/ch. sacral pressure ulcer Psych appropriate affect. DS: Data Data Completed and Pending Completed studies during hospitalization [Text1]: Procedures Fluoroscopy of Superior Vena Cava, Guidance (12/01/21) Insertion of Infusion Device into Left Cephalic Vein, Percutaneous Approach (12/01/21) Insertion of Infusion Device into Superior Vena Cava, Percutaneous Approach (12/01/21) Reposition Left Upper Femur with Intramedullary Internal Fixation Device, Percutaneous Approach (11/15/21) Transfusion of Nonautologous Red Blood Cells into Peripheral Vein, Percutaneous Approach (12/01/21) Labs on day of discharge: Laboratory Results - last 24 hr 01/02/22 01/02/22 01/03/22 16:08 19:21 07:03 POC Glucose 104 139 H 64 01/03/22 01/03/22 07:40 10:31 POC Glucose 84 155 H Preliminary micro results at discharge 12/30/21 03:04 Blood Culture - Preliminary Blood - Venous No growth after 48 hours. 12/30/21 03:04 Blood Culture - Preliminary Blood - Venous No growth after 48 hours. Discharge Plan Discharge Patient Disposition: Home, Self-Care Discharge Diagnosis: symptomatic hypoglycemia MSSA bacteremia severe protein calorie malnutrition stage III sacral pressure ulcer Referrals: [facility] [Outside] - 1 Week (2nd floor- short stay surgery You have a 2 PM appointment for IV antibiotics starting , 01/05/22. on weekends (Sunday and Sunday) your appointment will be at 10 am. on January 16, 2022, you will have your last dose of Daptomycin and your PICC line will be removed. When you come through the front entrance of the hospital, you will go the elevators and go to the 2nd floor. Once you arrive, the door for short stay will be visible on your left. Please try to arrive ten minutes early for ease of process. Thank you Karen. ) Physician,Unknown J [Primary Care Provider] - 1 Week Discharge Medications: New olanzapine 5 mg Tablet 5 mg PO BEDTIME Qty: 30 0RF mirtazapine 15 mg Tablet 15 mg PO DAILY@1999 Qty: 30 0RF daptomycin 350 mg recon soln 229 mg IV Q24H Qty: 12 0RF Rx Instructions: administer over 30 mins (DME) blood-glucose meter [FreeStyle Lite Meter] Kit See Rx Instructions .ROUTE .MEDSUPPLY Qty: 1 0RF Rx Instructions: As directed (DME) FreeStyle Lite Strips Strip See Rx Instructions .ROUTE .MEDSUPPLY Qty: 10 0RF Rx Instructions: As directed Continued oxycodone 5 mg tablet 5 mg PO Q6H PRN (Reason: Pain, Moderate (Pain Scale 4-6) 7 Days Qty: 28 0RF ferrous sulfate 325 mg (65 mg iron) tablet 325 mg PO DAILY Qty: 30 0RF cyanocobalamin (vitamin B-12) 500 mcg Tablet 500 mcg PO DAILY 0RF cholecalciferol (vitamin D3) [Vitamin D3] 25 mcg (1,000 unit) Capsule 25 mcg PO DAILY 0RF acetaminophen 325 mg Tablet 650 mg PO Q6H PRN (Reason: Pain, Mild (Pain Scale 1-3)) 30 Days Qty: 240 0RF omeprazole 20 mg capsule,delayed release(DR/EC) 20 mg PO DAILY Qty: 30 0RF multivitamin Tablet 1 tab PO DAILY 0RF olanzapine 5 mg tablet 5 mg PO Q12H PRN (Reason: agitation, anxiety) 0RF Discontinued aspirin 325 mg tablet 325 mg PO BID 42 Days Qty: 84 0RF olanzapine 10 mg Tablet 10 mg PO BEDTIME Qty: 30 0RF mirtazapine 30 mg Tablet 30 mg PO DAILY@1999 Qty: 30 0RF cefazolin 1 gram recon soln 2 g IV Q8H 0RF Discharge Orders: Discharge Order (Routine); Ordered 01/03/22 Ordered By: Padilla Sellers Diet: advance to usual diet Activity on Discharge: As tolerated Stand Alone Forms: Patient Portal Discharge page Other Ambulatory Orders: Basic Metabolic Panel Fasting (Routine) Timeframe: 20220109 Facility: [facility] - Location: Laboratory Ordered By: Padilla Sellers Creatine Kinase Total (Routine) Timeframe: 20220109 Facility: [facility] - Location: Laboratory Ordered By: Padilla Sellers Care Plan Goals: continue wound care for pressure ulcers, cleans wound and apply silver alginate to sacral stage III pressure ulcer and cover with foam dressing, continue to encourage high-protein diet, stop aspirin, encourage ambulation continue antibiotic IV daptomycin as ordered end date January 15, returned to short-stay surgery daily check blood sugars if noted to have lightheadedness weakness sweating feeling like fainting, immediately returned to Emergency Room if noted to have blood sugar less than 60 glucometer and test strips ordered check labs BMP and CPK on 01/09/2022 Health Concerns: Failure to thrive severe protein calorie malnutrition, hypoglycemia encourage by mouth intake continue Ensure can t.i.d. Plan of Treatment: follow-up with PCP and Psychiatry, dose of Zyprexa decreased to 5 mg and dose of mirtazipine been reduced to 15 mg. Assessment: per discharge summary Discharge Date/Time: 01/03/22 15:32
--- NOTE | 2022-01-03 14:43 | PM.EVENT ---
Event Note Date of Service: 01/03/22 Event Note: Daptomycin total 6 weeks antibiotics
== END 2022-01-03 15:32 | disposition home or self-care (01) | DRG 640 ==
LOC: HO.ED 06:39 → HO.EDOVER 10:13 → HO.S3 10:24
PROVIDERS: Internal Medicine; Admitting Provider Hospitalist; Emergency Provider Emergency Medicine; Visit Provider Hospitalist
DX: E16.2 Hypoglycemia, unspecified (principal); L89.153 Pressure ulcer of sacral region, stage 3; E43 Unspecified severe protein-calorie malnutrition; Z68.1 Body mass index [BMI] 19.9 or less, adult; R78.81 Bacteremia; R62.7 Adult failure to thrive; F42.8 Other obsessive-compulsive disorder; F50.82 Avoidant/restrictive food intake disorder; B95.61 Methicillin susceptible Staphylococcus aureus infection as the cause of diseases classified elsewhere; Z20.822 Contact with and (suspected) exposure to COVID-19; Z87.891 Personal history of nicotine dependence; Z79.899 Other long term (current) drug therapy
CPT/HCPCS: 70450; 70496; 70498; 80048; 80076; 81001; 82947; 83605; 83735; 84484; 85025; 85610; 86850; 86900; 86901; 87040; 87635; 93005; 96361; 96365; 96366; 96375; 96376; 99285; J0690; J0878; Q9967

== ENCOUNTER 2022-01-05 13:00 | Outpatient (REF) | payer OTHER, SELFPAY | END 2022-01-05 13:01 | disposition home or self-care (01) | LOC: HO.MDS 13:00 | PROVIDERS: Visit Provider Internal Medicine | DX: R78.81 Bacteremia (principal); Z45.2 Encounter for adjustment and management of vascular access device | CPT/HCPCS: J0878 ==

== ENCOUNTER 2022-01-06 07:31 | Outpatient (REF) | payer OTHER, SELFPAY ==
--- NOTE | ~2022-01-06 | XR_ITS ---
EXAMINATION: XR PELVIS. XR HIP, LEFT CLINICAL INFORMATION: Left hip pain COMPARISON: 12/07/2021 TECHNIQUE: AP radiograph of the pelvis. AP and frog-lateral views of the left hip FINDINGS: There is increasing heterotopic ossification proximal to the greater trochanter and medially at the site of the lesser trochanter fracture/avulsion. Fracture fixation hardware appears intact. No acute osseous abnormality. There is moderate bilateral hip osteoarthritis with joint space narrowing which does not appear significantly changed. XR/XR hip LT min 2V IMPRESSION: Heterotopic ossification is forming superior to the greater trochanter and medial to the femoral neck and site of lesser trochanter avulsion. Continued healing of intertrochanteric fracture which is barely perceptible.
--- NOTE | ~2022-01-06 | XR_ITS ---
EXAMINATION: XR PELVIS. XR HIP, LEFT CLINICAL INFORMATION: Left hip pain COMPARISON: 12/07/2021 TECHNIQUE: AP radiograph of the pelvis. AP and frog-lateral views of the left hip FINDINGS: There is increasing heterotopic ossification proximal to the greater trochanter and medially at the site of the lesser trochanter fracture/avulsion. Fracture fixation hardware appears intact. No acute osseous abnormality. There is moderate bilateral hip osteoarthritis with joint space narrowing which does not appear significantly changed. XR/XR pelvis 1-2V IMPRESSION: Heterotopic ossification is forming superior to the greater trochanter and medial to the femoral neck and site of lesser trochanter avulsion. Continued healing of intertrochanteric fracture which is barely perceptible.
== END 2022-01-06 07:32 | disposition home or self-care (01) ==
LOC: HO.HOSX 07:31
PROVIDERS: Visit Provider Physician Assistant
DX: M25.552 Pain in left hip (principal)
CPT/HCPCS: 72170; 73502

== ENCOUNTER 2022-01-06 14:08 | Outpatient (REF) | payer OTHER, SELFPAY | END 2022-01-06 14:09 | disposition home or self-care (01) | LOC: HO.MDS 14:08 | PROVIDERS: Visit Provider Internal Medicine | DX: R78.81 Bacteremia (principal); B95.61 Methicillin susceptible Staphylococcus aureus infection as the cause of diseases classified elsewhere; Z45.2 Encounter for adjustment and management of vascular access device | CPT/HCPCS: 96365; 99212; J0878 ==

== ENCOUNTER 2022-01-07 09:30 | Outpatient (REF) | payer OTHER, SELFPAY | END 2022-01-07 09:31 | disposition home or self-care (01) | LOC: HO.MDS 09:30 | PROVIDERS: PCP Internal Medicine; Visit Provider Internal Medicine | DX: R78.81 Bacteremia (principal); B95.61 Methicillin susceptible Staphylococcus aureus infection as the cause of diseases classified elsewhere; Z45.2 Encounter for adjustment and management of vascular access device | CPT/HCPCS: 96365; J0878 ==

== ENCOUNTER 2022-01-08 09:40 | Outpatient (REF) | payer OTHER, SELFPAY | END 2022-01-08 09:41 | disposition home or self-care (01) | LOC: HO.MDS 09:40 | PROVIDERS: PCP Internal Medicine; Visit Provider Internal Medicine | DX: R78.81 Bacteremia (principal); B95.61 Methicillin susceptible Staphylococcus aureus infection as the cause of diseases classified elsewhere; Z45.2 Encounter for adjustment and management of vascular access device | CPT/HCPCS: 96365; J0878 ==

== ENCOUNTER 2022-01-09 09:40 | Outpatient (REF) | payer OTHER, SELFPAY ==
[2022-01-09 10:53] LABS: Anion Gap 8 (12-20); Blood Urea Nitrogen 14 mg/dL (9-16); Calcium 8.5 mg/dL (8.4-10.2); Carbon Dioxide 31 mmol/L (22-29); Chloride 104 mmol/L (96-108); Estimated Glomerular Filt Rate > 60; Glucose Random 134 mg/dL (60-115); Sodium 139 mmol/L (135-145)
== END 2022-01-09 09:41 | disposition home or self-care (01) ==
LOC: HO.MDS 09:40
PROVIDERS: Hospitalist; Visit Provider Internal Medicine
DX: R78.81 Bacteremia (principal); B95.61 Methicillin susceptible Staphylococcus aureus infection as the cause of diseases classified elsewhere; Z45.2 Encounter for adjustment and management of vascular access device
CPT/HCPCS: 36415; 80048; 82550; 96365; J0878

== ENCOUNTER 2022-01-10 09:38 | Outpatient (REF) | payer OTHER, SELFPAY | END 2022-01-10 09:39 | disposition home or self-care (01) | LOC: HO.MDS 09:38 | PROVIDERS: Visit Provider Internal Medicine | DX: R78.81 Bacteremia (principal); B95.61 Methicillin susceptible Staphylococcus aureus infection as the cause of diseases classified elsewhere; Z45.2 Encounter for adjustment and management of vascular access device | CPT/HCPCS: 96365; J0878 ==

== ENCOUNTER 2022-01-11 09:45 | Outpatient (REF) | payer OTHER, SELFPAY | END 2022-01-11 09:46 | disposition home or self-care (01) | LOC: HO.MDS 09:45 | PROVIDERS: Visit Provider Internal Medicine | DX: R78.81 Bacteremia (principal); B95.61 Methicillin susceptible Staphylococcus aureus infection as the cause of diseases classified elsewhere; Z45.2 Encounter for adjustment and management of vascular access device | CPT/HCPCS: 96365; J0878 ==

== ENCOUNTER 2022-01-12 09:38 | Outpatient (REF) | payer OTHER, SELFPAY | END 2022-01-12 09:39 | disposition home or self-care (01) | LOC: HO.MDS 09:38 | PROVIDERS: Visit Provider Internal Medicine | DX: R78.81 Bacteremia (principal); B95.61 Methicillin susceptible Staphylococcus aureus infection as the cause of diseases classified elsewhere; Z45.2 Encounter for adjustment and management of vascular access device | CPT/HCPCS: 96365; J0878 ==

== ENCOUNTER 2022-01-13 09:38 | Outpatient (REF) | payer OTHER, SELFPAY | END 2022-01-13 09:39 | disposition home or self-care (01) | LOC: HO.MDS 09:38 | PROVIDERS: Visit Provider Internal Medicine | DX: R78.81 Bacteremia (principal); B95.61 Methicillin susceptible Staphylococcus aureus infection as the cause of diseases classified elsewhere; Z45.2 Encounter for adjustment and management of vascular access device | CPT/HCPCS: 96365; J0878 ==

== ENCOUNTER 2022-01-14 09:31 | Outpatient (REF) | payer OTHER, SELFPAY | END 2022-01-14 09:32 | disposition home or self-care (01) | LOC: HO.MDS 09:31 | PROVIDERS: Visit Provider Internal Medicine | DX: R78.81 Bacteremia (principal); B95.61 Methicillin susceptible Staphylococcus aureus infection as the cause of diseases classified elsewhere; Z45.2 Encounter for adjustment and management of vascular access device | CPT/HCPCS: 96365; J0878 ==

== ENCOUNTER 2022-01-15 09:25 | Outpatient (REF) | payer OTHER, SELFPAY | END 2022-01-15 09:26 | disposition home or self-care (01) | LOC: HO.MDS 09:25 | PROVIDERS: Visit Provider Internal Medicine | DX: R78.81 Bacteremia (principal); B95.61 Methicillin susceptible Staphylococcus aureus infection as the cause of diseases classified elsewhere; Z45.2 Encounter for adjustment and management of vascular access device | CPT/HCPCS: 96365; J0878 ==

== ENCOUNTER 2022-01-16 09:52 | Outpatient (REF) | payer OTHER, SELFPAY ==
--- NOTE | 2022-01-16 11:35 | HO.PICC ---
PICC Line Insertion picc removal per order. functional intact 41 cm 5-fr single lumen PICC removed per order from lue s/p abx infusion. dressing removed with care to avoid skin tears-pt has very fragile skin and is prone to skin tears. no new skin tears. no noted swelling to lue. small skin tear from previous dressing change healing well. telfa/gauze dressing applied with gauze wrap d/t fragile skin.
== END 2022-01-16 09:53 | disposition home or self-care (01) ==
LOC: HO.MDS 09:52
PROVIDERS: Visit Provider Internal Medicine
DX: R78.81 Bacteremia (principal); B95.61 Methicillin susceptible Staphylococcus aureus infection as the cause of diseases classified elsewhere; Z45.2 Encounter for adjustment and management of vascular access device
CPT/HCPCS: 96365; J0878

== ENCOUNTER 2022-02-22 07:53 | Outpatient (REF) | payer OTHER, SELFPAY ==
--- NOTE | ~2022-02-22 | XR_ITS ---
EXAMINATION: XR PELVIS XR HIP, LEFT CLINICAL INFORMATION: Hip pain. Prior fracture. COMPARISON: Radiographs pelvis and left hip 01/06/2022, 12/07/2021, and 11/15/2021. TECHNIQUE: AP view pelvis is performed along with AP and frog-lateral projections left hip. FINDINGS: Bony pelvis shows no acute fracture or destructive process. The SI joints and pubis show no diastases. There are degenerative changes again noted lower lumbar spine with lower lumbar disc narrowing and mild levocurvature. There is some benign mineralization within the pubis. Degenerative changes are present at both hips with hip narrowing and there is mild chondrocalcinosis articular cartilage right hip without erosive change. Left hip fracture is reduced with intramedullary toni and gamma nail. Hardware is intact. There is no acute fracture or dislocation or destructive process or osteolysis. Again, there is heterotopic bone superior to the greater trochanter similar in size and morphology to prior exam. Lesser trochanteric avulsion is again seen with fracture fragment seated adjacent to the medial proximal femoral neck. There is some heterotopic bone again present between the avulsed fragment and femur. XR/XR hip LT min 2V IMPRESSION: -Status post reduction internal fixation left hip fracture. -Hardware intact. No osteolysis. Alignment stable. 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 -Degenerative changes lower lumbar spine and bilateral hips. Chondrocalcinosis right hip. No erosive change.
--- NOTE | ~2022-02-22 | XR_ITS ---
EXAMINATION: XR PELVIS XR HIP, LEFT CLINICAL INFORMATION: Hip pain. Prior fracture. COMPARISON: Radiographs pelvis and left hip 01/06/2022, 12/07/2021, and 11/15/2021. TECHNIQUE: AP view pelvis is performed along with AP and frog-lateral projections left hip. FINDINGS: Bony pelvis shows no acute fracture or destructive process. The SI joints and pubis show no diastases. There are degenerative changes again noted lower lumbar spine with lower lumbar disc narrowing and mild levocurvature. There is some benign mineralization within the pubis. Degenerative changes are present at both hips with hip narrowing and there is mild chondrocalcinosis articular cartilage right hip without erosive change. Left hip fracture is reduced with intramedullary toni and gamma nail. Hardware is intact. There is no acute fracture or dislocation or destructive process or osteolysis. Again, there is heterotopic bone superior to the greater trochanter similar in size and morphology to prior exam. Lesser trochanteric avulsion is again seen with fracture fragment seated adjacent to the medial proximal femoral neck. There is some heterotopic bone again present between the avulsed fragment and femur. XR/XR pelvis 1-2V IMPRESSION: -Status post reduction internal fixation left hip fracture. -Hardware intact. No osteolysis. Alignment stable. 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 -Degenerative changes lower lumbar spine and bilateral hips. Chondrocalcinosis right hip. No erosive change.
== END 2022-02-22 07:54 | disposition home or self-care (01) ==
LOC: HO.HOSX 07:53
PROVIDERS: Visit Provider Physician Assistant
DX: M25.552 Pain in left hip (principal); S72.142A Displaced intertrochanteric fracture of left femur, initial encounter for closed fracture; X58.XXXA Exposure to other specified factors, initial encounter; Y93.9 Activity, unspecified; Y92.9 Unspecified place or not applicable; Y99.8 Other external cause status
CPT/HCPCS: 72170; 73502; 99212

== ENCOUNTER 2023-10-22 06:21 | Inpatient (IN) | payer MEDICAID, SELFPAY ==
--- NOTE | 2023-10-22 | ECG_ITS ---
Test Reason : CHEST PAIN Blood Pressure : / mmHG Vent. Rate : 039 BPM Atrial Rate : 039 BPM P-R Int : 156 ms QRS Dur : 086 ms QT Int : 496 ms P-R-T Axes : 070 063 080 degrees QTc Int : 399 ms Marked sinus bradycardia Abnormal ECG When compared with ECG of 30-DEC-2021 02:11, Vent. rate has decreased BY 22 BPM Referred By: Generic ED Physician Electronically Signed By:LOGAN ENAMORADO
--- NOTE | ~2023-10-22 | CT_ITS ---
EXAMINATION: CT ABDOMEN AND PELVIS WITHOUT CONTRAST CLINICAL INFORMATION: Abdominal pain. COMPARISON: Ultrasound abdomen 11/07/2021 CT abdomen pelvis 11/29/2021 TECHNIQUE: Multidetector volumetric imaging was performed from the superior aspect of the liver through the pubic symphysis. Sagittal and coronal reformatted images were obtained on the technologist's workstation. This CT examination was performed using dose optimization techniques as appropriate, variously including the following: *Automated exposure control *Adjustment of mA and/or kV according to patient size (this includes techniques or standardized protocols for targeted exams where dose is matched to indication/reason for exam; i.e. extremities or head) *Use of iterative reconstruction technique DLP: 165 mGy-cm FINDINGS: Lack of IV contrast and lack of fat restricts evaluation. LUNG BASES: The lung bases are clear. There is minimal platelike atelectasis left lower lobe. The heart size is normal. LIVER, GALLBLADDER, AND BILIARY TREE: The liver is normal in size, shape, and attenuation. No focal hepatic lesion or biliary ductal dilatation is present. The gallbladder is unremarkable with no evidence of radiopaque gallstones, gallbladder wall thickening, or obvious pericholecystic inflammatory changes. Gallbladder is better visualized on the previous CT abdomen exam PANCREAS: Unremarkable. SPLEEN: Unremarkable. ADRENAL GLANDS: Not well visualized KIDNEYS AND URETERS: The kidneys are normal in size, shape, and attenuation. No hydronephrosis, hydroureter, or calculi seen. No perinephric stranding. BLADDER: Unremarkable. GASTROINTESTINAL TRACT: The there is scattered gas and diverticuli in the colon without diverticulitis or diffuse distention. The small bowel loops are normal caliber.. There is small amount of ascites much improved compared to previous study 11/29/2021 ABDOMINAL WALL: No significant hernia is appreciated. LYMPH NODES: Normal. VASCULAR: There is atherosclerotic heavy calcification of abdominal aorta and common iliac arteries. PELVIC VISCERA: There is minimal free fluid. No pelvic mass seen. The uterus is small and unremarkable. No solid adnexal mass seen. However limited due to lack of IV contrast. OSSEOUS STRUCTURES: No aggressive lytic or sclerotic process seen. CT/CT abdomen pelvis wo IV con IMPRESSION: Limited exam due to lack of IV contrast. 1. No acute intra-abdominal process seen. 2. Significant improvement in the ascites compared to previous study 11/29/2021. 3. Colonic diverticulosis without diverticulitis. Fleischner guidelines were followed.
--- NOTE | ~2023-10-22 | XR_ITS ---
EXAMINATION: XR CHEST CLINICAL INFORMATION: Chest pain COMPARISON: 12/06/2021 TECHNIQUE: AP upright portable view of the chest was obtained. 8:20 AM FINDINGS: Cardiac leads project over the chest. Both lungs are hyperinflated and clear. No focal consolidation, interstitial pulmonary edema or pneumothorax. The cardiomediastinal silhouette is within normal limits. No gross bony abnormality. XR/XR chest 1V IMPRESSION: Hyperinflated lungs without acute process.
[2023-10-22 06:27] VITALS: BP 120/67; BP 131/62; PULSE 39; PULSE 50; RESP 18; O2SAT 100; BMI 14.1
[2023-10-22 06:55] VITALS: BP 123/53; PULSE 39; RESP 13; O2SAT 100
--- NOTE | 2023-10-22 07:00 | CA_ITS ---
Transthoracic Echocardiogram Patient (Last, First, Middle): Karen Long A Gender: Female Date of : 1960 Age: 63 Procedure Date: 10/22/2023 Procedure Type: Transthoracic Echocardiogram [place] [facility] [place]: 165.1 cm Weight: 29.94 kg BSA: 1.23 m2 Heart Rate: bpm BP: 117 / 75 mmHg Security Guard Supervisor: Referring MD: Araseli Reid MD Symptoms: Non ST-elevation IL Study Quality: Adequate w Contrast ECG Rhythm: Sinus Conclusions: - The left ventricular systolic function is moderately decreased. The visually estimated ejection fraction is between 35-40%. - The basal inferior, mid inferior, apical lateral, basal inferoseptal, mid anterolateral, and mid inferolateral segments are akinetic. - The left atrium is severely dilated. - There is moderate mitral valve regurgitation. Findings Procedure Information Contrast agent, definity, is being given per protocol without apparent complications. Left Ventricle Mildly increased left ventricular cavity size. The left ventricular systolic function is moderately decreased. The visually estimated ejection fraction is between 35-40%. There is evidence of regional wall motion abnormalities. Evidence suggests grade I (mild) diastolic dysfunction. Wall Motion Rest Echo Findings The basal inferior, mid inferior, apical lateral, basal inferoseptal, mid anterolateral, and mid inferolateral segments are akinetic. Right Ventricle Normal right ventricular cavity size and systolic function. Atria The left atrium is severely dilated. The right atrium is normal in size. Aortic Valve The aortic valve was not well visualized. There is no aortic valve stenosis. There is no aortic valve regurgitation. Mitral Valve The posterior mitral leaflet has restricted mobility. There is moderate mitral valve regurgitation. There is no mitral valve stenosis. Pulmonic Valve The pulmonic valve is likely normal. Tricuspid Valve Normal tricuspid valve structure. There is mild tricuspid valve regurgitation. There is no evidence of pulmonary hypertension. Great Vessels The aortic annulus is normal in size. Venous The inferior vena cava is normal in size and collapses greater than 50% with inspiration. Pericardium/Pleural There is no evidence of pericardial effusion. Prior Study Comparison Changes noted compared to prior study dated: 12/07/2021. Change in LVEF/new wall motion findings. Measurements 2D Linear Measurements IVSd: 0.89 0.6-0.9/0.6-1.0 cm LVIDd: 5.15 3.9-5.3/4.2-5.9 cm LVIDd Index: 4.19 2.4-3.2/2.2-3.1 cm/m2 LVIDs: 3.59 2.0-3.6 cm LVPWd: 0.84 0.7-1.1 cm Ao Root: 2.80 2.1-3.5 cm LA Diam: 3.30 2.7-3.8/3.0-4.0 cm LAIDs Index: 2.68 1.5-2.3 cm/m2 LV Mass: 195.89 67-162/88-224 g LV Mass Index: 159.26 43-95/49-115 g/m2 LVOT Diam: 2.00 3.0+(-)1.3 cm 2D Systolic Function EF 4C: 40.80 >55% EF 2C: 47.90 >55% EF BiP: 43.80 >55% Mitral Valve MV Pk E: 0.63 MV PK A: 0.58 MV Decel Time: 196.00 E/A: 1.10 E'Lateral: 6.20 E'Medial: 6.96 E/E' Med: 9.10 E/E' Lat: 10.20 PHT: 58.00 MVA PHT: 3.79 Decel Sully: 3.21 MR Vol - PW Dopp: 59.36 MR VTI: 2.12 MR ERO: 28.00 MR Alias Nba: 0.39 MR RAD: 0.80 Aortic Valve AoV Pk Nba: 1.13 AoV Mn Nba: 0.68 AoV VTI: 0.35 AoV Pk Grad: 5.00 Aov Mn Grad: 2.00 MARIAMA Cont.VTI: 1.60 LVOT LVOT Pk Nba: 0.69 LVOT Mn Nba: 0.44 LVOT VTI: 0.18 LVOT Pk Grad: 2.00 LVOT Mn Grad: 1.00 LVOT Diam: 2.00 LVOT Area: 3.14 Diastolic Function MV Pk E: 0.63 MV Pk A: 0.58 E/A: 1.10 E'Medial: 6.96 E/E' Med: 9.10 E' Laterial: 6.20 E/E' Lat: 10.20 Tricuspid Valve TR Pk Nba: 1.50 TR Pk Grad: 9.00 RA Press: 3.00 RVSP: 12.00 Great Vessels Aorta Ao Root-2D: 2.80 2.0-3.7 cm Ao Asc: 2.70 2.1-3.4 cm Pulmonary Valve PV Pk Nba: 0.69 Peak PV Grad: 2.00 Updated in Other Vendor System with Status of Final Edmundo Baldwin MD electronically signed on 10/22/2023 3:28:38 PM with status of Final
--- NOTE | 2023-10-22 07:29 | ED.CHESTPAIN ---
HPI - Chest Pain General Chief Complaint: Chest Pain Stated Complaint: CHEST PAIN, UNABLE TO VOID Time Seen by Provider: 10/22/23 07:12 Source: patient, family and EMS Mode of arrival: EMS Limitations: no limitations History of Present Illness HPI narrative: A 63-year-old female brought in by ambulance for evaluation multiple complaints. Started last night at 21:00 after urinated started to have suprapubic pain the patient called it uterus pain, patient is unable to urinate after the and complaining of suprapubic pain and pressure the patient thinking that pain is causing her chest pain and being dizzy, patient thinks she is dehydrated. Stated that ever since she broke her hip and had hip replacement surgery last year she is deconditioning and her lifestyle is deteriorating. Patient while in the emergency department found to have bradycardia patient is unaware of history bradycardia or taking medication to lower her heart rate. Declined any past medical history except hip fracture, no intra-abdominal surgical history. Patient had normal bowel movement was yesterday. Related Data Home Medications Medication Instructions Recorded Confirmed cholecalciferol (vitamin D3) 25 25 mcg PO DAILY 11/15/21 12/30/21 mcg (1,000 unit) capsule (Vitamin D3) cyanocobalamin (vitamin B-12) 500 500 mcg PO DAILY 11/15/21 12/30/21 mcg tablet multivitamin 1 tab PO DAILY 12/30/21 12/30/21 olanzapine 5 mg tablet 5 mg PO Q12H PRN agitation, anxiety 12/30/21 12/30/21 Previous Rx's Medication Instructions Recorded ferrous sulfate 325 mg (65 mg 325 mg PO DAILY #30 tabs 11/07/21 iron) tablet acetaminophen 325 mg tablet 650 mg (2 x 325 mg) PO Q6H PRN 11/18/21 Pain, Mild (Pain Scale 1-3) 30 days #240 tabs omeprazole 20 mg capsule,delayed 20 mg PO DAILY #30 caps 11/18/21 release oxycodone 5 mg tablet 5 mg PO Q6H PRN Pain, Moderate 11/23/21 (Pain Scale 4-6 7 days #28 tabs mirtazapine 15 mg tablet 15 mg PO DAILY@2000 #30 tabs 01/02/22 olanzapine 5 mg tablet 5 mg PO BEDTIME #30 tabs 01/02/22 blood sugar diagnostic (FreeStyle #10 ea 01/03/22 Lite Strips) blood-glucose meter (FreeStyle #1 01/03/22 Lite Meter kit) daptomycin 350 mg intravenous 229 mg IV Q24H #12 01/03/22 solution Allergies Allergy/AdvReac Type Severity Reaction Status Date / Time No Known Allergies Allergy Verified 12/31/21 12:42 [No Known Allergies*] Review of Systems Review of Systems: All other systems are reviewed and are negative Constitutional: Reports as per HPI and Reports no additional constitutional complaints Eyes: Reports as per HPI and Reports no additional eye complaints Reports system reviewed and no additional complaints, except as documented Cardiovascular: Reports as per HPI and Reports no additional cardiovascular complaints Respiratory: Reports as per HPI and Reports no additional respiratory complaints Gastrointestinal: Reports as per HPI and Reports no additional gastrointestinal complaints Genitourinary: Reports no additional female genitourinary complaints Musculoskeletal: Reports no additional musculoskeletal complaints Skin/Breast: Reports system reviewed and no additional complaints, except as docu Psychiatric: Reports no additional psychiatric complaints Endocrine: Reports no additional endocrine complaints Hematologic/Lymphatic: Reports no additional hematologic/lymphatic complaints Allergic/Immunologic: Reports no additional allergic/immunologic complaints Reports system reviewed and no additional complaints, except as documented and Reports Abnormal speech present PMFSH Past Medical History Onset Date is defined in the Problem List Problems that require an onset date and time if occurred within 24 hrs of arrival to the ED Aortic Dissection and Rupture; Neurologic impairment; Cardiopulmonary Arrest; Endotracheal Intubation; Insertion or Replacement of Mechanical Circulatory Assist Device Medical History Generalized anxiety disorder OCD (obsessive compulsive disorder) Avoidant and restrictive food intake disorder MSSA bacteremia Sacral pressure ulcer Malnutrition Failure to thrive in adult Normocytic anemia Cachexia Closed intertrochanteric fracture of femur Anemia Surgical History History of hip surgery H/O foot surgery Family History Family History Other No family history of coronary artery disease Social History Social History Household Members: Family Household Members Other:: Mother Housing: House Do you presently have visiting nurse or other home services: No Alcohol intake: never Comment: PT put on hold due to lack of patient participation Patient Tobacco Use Status: Former Tobacco user Tobacco use type: Cigarette Advance Directives: Yes Advance Directives on File: Yes Advance Directives Date on File: 11/16/21 service: Yes Current occupational status: unemployed Physical Exam Vital Signs: Vital Signs: Last Vital Signs Pulse 39 L 10/22/23 06:55 Resp 13 10/22/23 06:55 BP 123/53 L 10/22/23 06:55 Pulse Ox 100 10/22/23 06:55 O2 Del Method Room Air 10/22/23 06:55 BMI result Body Mass Index 14.1 Vital signs have been reviewed and appear to be correct. Blood pressure elevated. Bradycardia, Respiratory rate normal. Temperature normal. Oxygen saturation normal. Appearance: Alert. Cachectic, Oriented X3. No acute distress. Head: Normal external exam. Normocephalic. Atraumatic. No Villanueva signs noted. No raccoon eyes noted Eyes: PERRLA. EOMI. Conjunctiva and sclera normal. Eyelids normal. ENT: TM's Normal. Pharynx normal. Uvula midline. Moist mucous membranes. No trismus noted. No drooling noted. No muffled voice noted. Neck: Normal inspection. Neck supple. FROM. No adenopathy. Thyroid Normal. No meningeal signs. No neck mass noted. CVS: Normal heart rate and rhythm. Heart sound normal. No murmurs noted. Pulses normal throughout. Respiratory: No respiratory distress. Painless inspiration. Breath sounds normal. No wheezes/rales/rhonchi noted. Chest nontender. No accessory muscle usage noted or decreased air movement noted. Abdomen: Soft, suprapubic tenderness, no guarding, no rebound tenderness Bowel sounds normal in all 4 quadrants. No distention noted. No organomegaly noted. No visible injury noted. Rectal exam: Brown stool guaiac negative. Back: No CVA tenderness. Full range of motion noted. Skin: Skin warm and dry. Normal skin color. Normal skin turgor. No rashes/lesions/lacerations noted. Extremities: No lower extremity edema. Extremities exhibit normal range of motion. Extremities nontender. Neuro: Oriented X 3. Cranial nerve exam: II-XII are grossly intact No motor deficit. No sensory deficit. Reflexes normal. Course Reevaluation(s) Reevaluation #1: 63-year-old female no past medical history presented with multiple complaints. 1. Suprapubic pain with negative CT and UA, patient had a straight catheter with 200 cc of clear urine came out no sign of obstruction. 2. Chest tightness with bradycardia without ischemic changes and elevated troponin, the case discussed with Dr. Baldwin who recommended to admit the patient for inpatient echo start the patient on heparin give her aspirin and nitro and he will re-evaluate. 3. Patient noted to be anemic declined any rectal bleed, guaiac is negative for blood will start on heparin. Time: 09:51 Medications Administered Discontinued Medications Generic Name Dose Route Start Last Admin Trade Name Freq PRN Reason Stop Dose Admin Aspirin 81 mg 10/22/23 09:34 10/22/23 09:49 Aspirin 81 Mg Tab.Chew PO 10/22/23 09:35 81 mg ONCE ONE Administration Sodium Chloride 1,000 mls @ 999 mls/hr 10/22/23 07:18 10/22/23 08:29 Ns IV 10/22/23 08:18 999 mls/hr .Q1H1M ONE Administration Morphine Sulfate 1 mg 10/22/23 09:34 10/22/23 09:48 Morphine Sulfate 2 Mg/Ml Cartridge IVPUSH 10/22/23 09:35 1 mg ONCE ONE Administration Protocol Nitroglycerin 0.5 inch 10/22/23 09:34 10/22/23 09:49 Nitroglycerin 2 % Oint 1 Gm Packet TRANSDERMA 10/22/23 09:35 0.5 inch ONCE ONE Administration Medical Decision Making Differential Diagnosis Differential Diagnoses: The differential diagnosis associated with the presentation includes (Bradycardia, ACS, CHF, pneumonia, pneumothorax, colitis, urinary tension, diverticulitis, electrolyte abnormality, severe anemia.) Admission/Observation Consideration of admission/observation: Escalation of care including admission/observation considered Consult Healthcare Provider Management of the patient was discussed with: Hospitalist (Dr. Sellers) and Senior Electrical Designer (Dr. Baldwin) Lab Data MDM Lab Attestation statement: I reviewed the patient's lab results. 10/22/23 08:39 10/22/23 08:39 Labs: Lab Results 10/22/23 Range/Units 08:39 WBC 5.0 (4.8-10.8) X10*3/uL RBC 3.71 L D (4.20-5.50) X10*6/uL Hgb 9.5 L D (12.0-16.0) g/dl Hct 29.1 L (37.0-47.0) % MCV 78.4 L (80.0-98.0) fL MCH 25.6 L (27.0-33.0) pg MCHC 32.6 (31.0-35.0) g/dl RDW 27.9 H (11.0-16.0) % Plt Count 218 D (160-400) X10*3/uL MPV 9.0 L (9.4-12.3) fL Immature Gran % (Auto) 0.6 H (0.0-0.4) % Neut % (Auto) 68.2 (45-73) % Lymph % (Auto) 25.2 (20-40) % [place] % (Auto) 5.4 (2-11) % Eos % (Auto) 0.0 (0-4) % Baso % (Auto) 0.6 (0-2) % Lymph # (Auto) 1.3 (1.2-4.9) X10*3/uL [place] # (Auto) 0.3 (0.1-1.2) X10*3/uL Eos # (Auto) 0.0 (0.0-0.4) X10*3/uL Baso # (Auto) 0.0 (0.0-0.2) X10*3/uL Abs Immat Gran (auto) 0.03 (0.00-0.03) X10*3/uL Absolute Neuts (auto) 3.4 (2.0-8.3) x10*3/uL Absolute Nucleated RBC 0.000 (0.0-0.012) X10*3/uL Nucleated RBC % (auto) 0.0 (0.0-0.2) /100WBC Sodium 136 (135-145) mmol/L Potassium 3.8 (3.3-5.1) mmol/L Chloride 104 (96-108) mmol/L Carbon Dioxide 28 (22-29) mmol/L Anion Gap 8 L (12-20) BUN 21 H (9-16) mg/dL Creatinine 0.60 (0.5-1.4) mg/dL Estim Creat Clear Calc 57.6 Estimated GFR > 60 Random Glucose 76 (60-115) mg/dL Calcium 8.2 L (8.4-10.2) mg/dL Total Bilirubin 1.0 (0.0-1.0) mg/dL Direct Bilirubin 0.4 (0.0-0.5) mg/dL AST 84 H (5-31) U/L ALT 107 H (0-31) U/L Alkaline Phosphatase 65 (39-117) U/L Troponin I High Sens 255.4 H* (<3.5-17.0) ng/L B-Natriuretic Peptide 337 H (<100) pg/mL Total Protein 5.3 L (6.5-8.0) g/dL Albumin 3.1 L (3.5-5.0) g/dL Lipase 37 (8-78) U/L Urine Color Yellow Urine Appearance Clear Urine pH 6.0 (5.0-9.0) Ur Specific [place] 1.010 (1.005-1.025) Urine Protein Negative (Neg-Trace) mg/dL Urine Glucose (UA) Negative (Negative) mg/dL Urine Ketones Negative (Negative) mg/dL Urine Blood Trace H (Negative) Urine Nitrite Negative (Negative) Ur Leukocyte Esterase Negative (Negative) Urine RBC 3-5 H (0-2) /HPF Urine WBC 0-5 (0-5) /HPF Ur Squamous Epith Cells 0-2 (0-2) /HPF Urine Bacteria None Seen (None Seen) Hyaline Casts 0-2 (0-2) /LPF Independent Interpretation I performed an independent interpretation of an: EKG (Sinus bradycardia at 39 beats per minutes, normal interval, no ST-T changes.), Plain X-Ray (Chest: No acute intrathoracic pathology.) and CT Scan (Abdomen and pelvis: No acute intra-abdominal pathology.) Radiology Impression Discussion of test interpretation with radiology: I have reviewed the radiologist's reading. Critical Care Time Critical Care Time Critical Care Time: Yes Total Critical Care Time: 60 Attestation: I spent 60 minutes providing critical care service to the patient, this including time spent at the bedside to evaluate the patient, reassess the patient, monitoring vital signs, review labs, and radiographic studies, counseling the patient/family, discussing the case with consultants, disposition the patient. Discharge Plan Discharge Clinical Impression: Non-ST elevated myocardial infarction, Bradycardia, Acute suprapubic pain, Dysuria Patient Disposition: Admitted As Inpatient
[2023-10-22] MEDS: 0.9 % Sodium Chloride 1,000 ML 999 ML IV (08:29)
[2023-10-22 08:44] LABS: MANUAL DIFF FLAG NO
[2023-10-22 08:50] LABS: Appearance Urine Clear; Color Urine Yellow; Glucose Urine UA Negative (Negative); Leukocyte Esterase Urine Negative (Negative); Nitrite Urine Negative (Negative); UMIC TRIGGER UACC YES; Urine Blood Trace (Negative); Urine Ketones Negative (Negative); Urine Protein Negative (Neg-Trace)
[2023-10-22 08:53] LABS: Bacteria Urine None Seen (None Seen); Basophils Percent Auto 0.6 % (0-2); Hematocrit 29.1 % (37.0-47.0); Hemoglobin 9.5 g/dl (12.0-16.0); Hyaline Casts Urine 0-2 /LPF (0-2); Imm Gran Abs Auto 0.03 X10*3/uL (0.00-0.03); Imm Gran Pct Auto 0.6 % (0.0-0.4); Lymphocytes Absolute Auto 1.3 X10*3/uL (1.2-4.9); Lymphocytes Percent Auto 25.2 % (20-40); Mean Corpuscular HGB Conc 32.6 g/dl (31.0-35.0); Mean Corpuscular Hemoglobin 25.6 pg (27.0-33.0); Mean Corpuscular Volume 78.4 fL (80.0-98.0); Monocytes Absolute Auto 0.3 X10*3/uL (0.1-1.2); Monocytes Percent Auto 5.4 % (2-11); Neutrophils Absolute Auto 3.4 x10*3/uL (2.0-8.3); Neutrophils Percent Auto 68.2 % (45-73); Platelet Count 218 X10*3/uL (160-400); Red Blood Count 3.71 X10*6/uL (4.20-5.50); Red Cell Distribution Width 27.9 % (11.0-16.0); Squamous Epithelial Cell Urine 0-2 /HPF (0-2); WBC Urine 0-5 /HPF (0-5)
[2023-10-22 09:06] LABS: Alanine Aminotransferase 107 U/L (0-31); Albumin Level 3.1 g/dL (3.5-5.0); Alkaline Phosphatase 65 U/L (39-117); Anion Gap 8 (12-20); Aspartate Amino Transferase 84 U/L (5-31); Bilirubin Direct 0.4 mg/dL (0.0-0.5); Blood Urea Nitrogen 21 mg/dL (9-16); Calcium 8.2 mg/dL (8.4-10.2); Carbon Dioxide 28 mmol/L (22-29); Chloride 104 mmol/L (96-108); Creatinine Clr Calc Pharmacy 57.6; Estimated Glomerular Filt Rate > 60; Glucose Random 76 mg/dL (60-115); Lipase 37 U/L (8-78); Potassium 3.8 mmol/L (3.3-5.1); Sodium 136 mmol/L (135-145); Total Protein 5.3 g/dL (6.5-8.0)
[2023-10-22 09:12] LABS: B Type Natriuretic Peptide 337 pg/mL (<100)
[2023-10-22 09:26] LABS: Troponin-I High Sensitivity 255.4 ng/L (<3.5-17.0)
[2023-10-22] MEDS: Morphine Sulfate 2 MG/ML CARTRIDGE 1 MG IVPUSH ×4 (09:48→20:49)
[2023-10-22] MEDS: Nitroglycerin 2 % Oint 1 GM Packet 0.5 INCH TRANSDERMA (09:49)
[2023-10-22] MEDS: Aspirin 81 MG TAB.CHEW PO (09:49)
[2023-10-22 10:03] VITALS: BMI 11.1
[2023-10-22 10:11] LABS: OBS Int Ctl Valid YES; OBS1 NEGATIVE (NEGATIVE)
--- NOTE | 2023-10-22 10:16 | PC.NURSE ---
accurate weight obtained of 30.3kg ib a new weighted bed. pharmacy called and left message with Joanie
[2023-10-22 10:53] LABS: Hematocrit 31.8 % (37.0-47.0); Hemoglobin 10.2 g/dl (12.0-16.0); Mean Corpuscular HGB Conc 32.1 g/dl (31.0-35.0); Mean Corpuscular Hemoglobin 25.5 pg (27.0-33.0); Mean Corpuscular Volume 79.5 fL (80.0-98.0); Mean Platelet Volume 9.7 fL (9.4-12.3); Platelet Count 204 X10*3/uL (160-400)
[2023-10-22 11:05] VITALS: BP 117/85; PULSE 42; RESP 11; O2SAT 99
--- NOTE | 2023-10-22 11:15 | PM.IMHP ---
History of Present Illness Date of Service: 10/22/23 Chief Complaint: chest pain 63-year-old female presented to the ER with multiple complaints that started last night at 21:00. After she urinated she started to have suprapubic pain the patient called it uterus pain , patient is unable to urinate after the and complaining of suprapubic pain and pressure the patient thinking that pain is causing her chest pain and being dizzy, patient thinks she is dehydrated as she does not eat or drink much of anything and she runs outside on a daily basis she reports. She reported the chest pressure being in the middle of her chest without radiation or other associated symptoms. She denied shortness breath, nausea, vomiting, diarrhea. She reported that her condition has worsened over the last year since her hip surgery. She was also noted to have bradycardia, sinus bradycardia on EKG, does not take any rate lowering medications but again she does run on a daily basis. She also reported having palpitations over the last month at least, feeling her heart go fast and slow. She has no history of atrial fibrillation. In the ER, initial troponin 255 with repeat of 724, BNP 337 but does not appear to be in acute heart failure, heart rate as low as 39. She was started on IV heparin in the ER, given aspirin, nitroglycerin, morphine. She will be admitted for further management and treatment of acute NSTEMI. Review of Systems Review of Systems: Denies any recent fever chills or decrease in appetite respiratory denies any shortness or cough cardiovascular See HPI gastrointestinal denies any dysphagia abdominal pain nausea vomiting or diarrhea genitourinary denies any dysuria frequency or hematuria musculoskeletal denies any joint pain or swelling neuropsych denies any weakness or seizures all other systems reviewed are negative [facility] Medical History Generalized anxiety disorder OCD (obsessive compulsive disorder) Avoidant and restrictive food intake disorder MSSA bacteremia Sacral pressure ulcer Malnutrition Failure to thrive in adult Normocytic anemia Cachexia Closed intertrochanteric fracture of femur Anemia Family History Other No family history of coronary artery disease Surgical History History of hip surgery H/O foot surgery Social History Household Members: Family Household Members Other:: Mother Housing: House Do you presently have visiting nurse or other home services: No Alcohol intake: never Comment: PT put on hold due to lack of patient participation Patient Tobacco Use Status: Former Tobacco user Tobacco use type: Cigarette Advance Directives: Yes Advance Directives on File: Yes Advance Directives Date on File: 11/16/21 service: Yes Current occupational status: unemployed Meds Allergies Allergy/AdvReac Type Severity Reaction Status Date / Time No Known Allergies Allergy Verified 12/31/21 12:42 [No Known Allergies*] Active Medications: Current Medications Heparin Sodium (Porcine) (Heparin Sodium,Porcine 5,000 Unit/Ml Vial) 1,200 unit 40 unit/kg (1200 unit) IVPUSH PROTOCOL BOLUS PRN; Protocol PRN Reason: 40 unit/kg - Heparin Protocol Heparin Sodium (Porcine) (Heparin Sodium,Porcine 5,000 Unit/Ml Vial) 2,400 unit 80 unit/kg (2400 unit) IVPUSH PROTOCOL BOLUS PRN; Protocol PRN Reason: 80 unit/kg - Heparin Protocol Heparin Sodium/Sodium Chloride (Heparin Sodium,Porcine/1/2ns) 25,000 unit in 250 mls @ 0 mls/hr IVCONT .Q0M ROBERTO CARLOS; Protocol Home Medications Medication Instructions Recorded Confirmed Last Taken Type multivitamin 1 tab PO DAILY 12/30/21 10/22/23 Unknown History calcium carbonate 500 mg-vitamin 1 tab PO DAILY 10/22/23 10/22/23 Unknown History D3 10 mcg (400 unit) tablet (Calcium 500 + D) Physical Exam Vital Signs and Narrative: Vital Signs: Last Vital Signs Pulse 42 L 10/22/23 11:05 Resp 11 L 10/22/23 11:05 BP 117/85 10/22/23 11:05 Pulse Ox 99 10/22/23 11:05 O2 Del Method Room Air 10/22/23 11:05 BMI result Body Mass Index 11.1 Appearing in no acute distress head is normocephalic atraumatic eyes pupils are PERRLA sclera is anicteric mouth throat mucous membranes are intact and moist neck is supple no lymphadenopathy, no JVD noted lung sounds are clear to auscultation heart regular rate rhythm, clear S1, S2 positive bowel sounds, abdomen is soft, nontender neuro patient is alert x3, no focal deficits Results Labs 10/22/23 10:46 10/22/23 08:39 Labs: Laboratory Results - last 24 hr 10/22/23 10/22/23 10/22/23 08:39 10:06 10:46 MCV 78.4 L 79.5 L MCH 25.6 L 25.5 L MCHC 32.6 32.1 RDW 27.9 H 28.0 H Plt Count 218 D 204 MPV 9.0 L 9.7 Immature Gran % (Auto) 0.6 H Neut % (Auto) 68.2 Lymph % (Auto) 25.2 [place] % (Auto) 5.4 Eos % (Auto) 0.0 Baso % (Auto) 0.6 Lymph # (Auto) 1.3 [place] # (Auto) 0.3 Eos # (Auto) 0.0 Baso # (Auto) 0.0 Abs Immat Gran (auto) 0.03 Absolute Neuts (auto) 3.4 Absolute Nucleated RBC 0.000 0.000 Nucleated RBC % (auto) 0.0 0.0 Anion Gap 8 L Estim Creat Clear Calc 57.6 Estimated GFR > 60 Random Glucose 76 Calcium 8.2 L Total Bilirubin 1.0 Direct Bilirubin 0.4 AST 84 H ALT 107 H Alkaline Phosphatase 65 B-Natriuretic Peptide 337 H Total Protein 5.3 L Albumin 3.1 L Lipase 37 Urine Color Yellow Urine Appearance Clear Urine pH 6.0 Ur Specific [place] 1.010 Urine Protein Negative Urine Glucose (UA) Negative Urine Ketones Negative Urine Blood Trace H Urine Nitrite Negative Ur Leukocyte Esterase Negative Urine RBC 3-5 H Urine WBC 0-5 Ur Squamous Epith Cells 0-2 Urine Bacteria None Seen Hyaline Casts 0-2 Stool Occult Blood NEGATIVE Imaging Radiologist's Impressions: Impressions Chest X-Ray 10/22/23 07:20 IMPRESSION: Hyperinflated lungs without acute process. Abdomen/Pelvis CT 10/22/23 08:11 IMPRESSION: Limited exam due to lack of IV contrast. 1. No acute intra-abdominal process seen. 2. Significant improvement in the ascites compared to previous study 11/29/2021. 3. Colonic diverticulosis without diverticulitis. Fleischner guidelines were followed. Assessment and Plan (1) Non-ST elevated myocardial infarction: Status: Acute Plan 63 year old women admitted with NSTEMI and bradycardia NSTEMI chest pain on admission positive troponin and trending up started IV heparin drip in the ED cardiology consult pending echocardiogram monitor on telemetry Bradycardia not on rate lowering medications, reports that she is a runner no HB noted on EKG Microcytic anemia No acute bleeding mental health continue home medications Severe protein calorie malnutrition Add protein to diet Dietitian/nutrition consultation DVT prophylaxis with IV heparin Full code Patient will need at least 48-72 hours of admission for treatment of NSTEMI requiring IV heparin, specialty consultation and the possibility of transfer to tertiary care facility Quality Stroke Does the patient have a stroke diagnosis?: No VTE Prior VTE?: No VTE Risk Level:: Medical - moderate - high VTE Device Contraindication: Treatment Not Indicated VTE Drug Contraindication: N/A - Med Ordered
[2023-10-22 11:16] LABS: Troponin-I High Sensitivity 724.8 ng/L (<3.5-17.0)
--- NOTE | 2023-10-22 11:16 | PHA.MEDREC ---
Pharmacy Consult ? Medication Reconciliation Pharmacy has completed the medication reconciliation. spoke with patient and she reports that she does not take any prescription medications.
[2023-10-22] MEDS: Heparin Sodium,Porcine 5,000 UNIT/ML VIAL 1800 UNIT IVPUSH (12:03)
[2023-10-22 12:19] LABS: INTERNATIONAL NORM RATIO 0.9 (0.9-1.1); Prothrombin Time 10.4 SEC (11.1-13.3)
[2023-10-22 12:22] LABS: PTT Heparin Drip 30.3 SEC (53-77.9)
[2023-10-22] MEDS: Heparin Sodium,Porcine/1/2NS 25,000 UNIT/250 ML IV.SOLN 3.64 UNIT IVCONT (12:41)
--- NOTE | 2023-10-22 15:39 | PM.CNCAR ---
History of Present Illness History of Present Illness Date of Service: 10/22/23 Chief complaint: NSTEMI Narrative: This is a cardiology consultation regarding NSTEMI and bradycardia. Patient has primarily come to the hospital for bladder spasms type discomfort and in this context, she had also mentioned about some chest pressure. That led to EKG, troponin checks. This is positive for non ST elevation myocardial infarction. However, patient continues to state that main issues rather suprapubic discomfort/spasms and that is what bothers her the most. She is markedly underweight at only 66 lb. She states that she is generally this way and she eats only once a day. She apparently has been running for a long time and even in the last few days she has been running almost now today and did not feel any issues. No history of any coronary disease or cardiac issues in the past. Review of Systems Review of Systems: Yes all other systems are reviewed and are negative Constitutional: Constitutional: Reports as per HPI and Reports no additional constitutional complaints Eyes: Eyes: Reports as per HPI and Denies no additional eye complaints ENT: Denies system reviewed and no additional complaints, except as documented and Reports as per HPI Cardiovascular: Cardiovascular: Reports as per HPI, Reports no additional cardiovascular complaints, Denies acrocyanosis, Denies cool extremities, Reports chest pain, Denies leg edema, Denies lightheadedness, Denies palpitations and Denies dyspnea Respiratory: Respiratory: Reports as per HPI, Denies no additional respiratory complaints and Denies dyspnea Gastrointestinal: Gastrointestinal: Reports as per HPI and Denies no additional gastrointestinal complaints Genitourinary: Genitourinary: Reports as per HPI Musculoskeletal: Musculoskeletal: Reports no additional musculoskeletal complaints and Reports as per HPI Integumentary/Breasts: Skin/Breast: Reports system reviewed and no additional complaints, except as docu Neurologic: Reports system reviewed and no additional complaints, except as documented and Reports as per HPI Psychiatric: Psychiatric: Reports no additional psychiatric complaints and Reports as per HPI Endocrine: Endocrine: Reports no additional endocrine complaints, Reports as per HPI and Denies palpitations Hematologic/Lymphatic: Hematologic/Lymphatic: Reports no additional hematologic/lymphatic complaints and Reports as per HPI Allergic/Immunologic: Allergic/Immunologic: Reports no additional allergic/immunologic complaints and Reports as per HPI [facility] Past Medical History Medical History Generalized anxiety disorder OCD (obsessive compulsive disorder) Avoidant and restrictive food intake disorder MSSA bacteremia Sacral pressure ulcer Malnutrition Failure to thrive in adult Normocytic anemia Cachexia Closed intertrochanteric fracture of femur Anemia Family History Family History Other No family history of coronary artery disease Surgical History Surgical History History of hip surgery H/O foot surgery Social History Social History Household Members: Family Household Members Other:: Mother Housing: House Do you presently have visiting nurse or other home services: No Alcohol intake: never Comment: PT put on hold due to lack of patient participation Patient Tobacco Use Status: Former Tobacco user Tobacco use type: Cigarette Advance Directives: Yes Advance Directives on File: Yes Advance Directives Date on File: 11/16/21 service: Yes Current occupational status: unemployed Meds Allergies Allergy/AdvReac Type Severity Reaction Status Date / Time No Known Allergies Allergy Verified 12/31/21 12:42 [No Known Allergies*] Active Medications: Current Medications Acetaminophen (Acetaminophen 325 Mg Tablet) 650 mg PO Q6H PRN PRN Reason: Pain, Mild (Pain Scale 1-3) Aspirin (Aspirin 81 Mg Tab.Chew) 81 mg PO DAILY [facility] Atorvastatin Calcium (Atorvastatin Calcium 80 Mg Tablet) 80 mg PO BEDTIME [facility] Heparin Sodium (Porcine) (Heparin Sodium,Porcine 5,000 Unit/Ml Vial) 1,200 unit 40 unit/kg (1200 unit) IVPUSH PROTOCOL BOLUS PRN; Protocol PRN Reason: 40 unit/kg - Heparin Protocol Heparin Sodium (Porcine) (Heparin Sodium,Porcine 5,000 Unit/Ml Vial) 2,400 unit 80 unit/kg (2400 unit) IVPUSH PROTOCOL BOLUS PRN; Protocol PRN Reason: 80 unit/kg - Heparin Protocol Heparin Sodium/Sodium Chloride (Heparin Sodium,Porcine/1/2ns) 25,000 unit in 250 mls @ 0 mls/hr IVCONT .Q0M [facility]; Protocol Last Admin: 10/22/23 12:41 Dose: 12 units/kg/hr, 3.64 mls/hr Sodium Chloride (0.9 % Sodium Chloride Flush 3 Ml Syringe) 3 ml IVFLUSH QSHIFT [facility] Home Medications Medication Instructions Recorded Confirmed Last Taken Type multivitamin 1 tab PO DAILY 12/30/21 10/22/23 Unknown History calcium carbonate 500 mg-vitamin 1 tab PO DAILY 10/22/23 10/22/23 Unknown History D3 10 mcg (400 unit) tablet (Calcium 500 + D) Physical Exam Vital Signs: Vital Signs: Last Vital Signs Pulse 42 L 10/22/23 11:05 Resp 11 L 10/22/23 11:05 BP 117/85 10/22/23 11:05 Pulse Ox 99 10/22/23 11:05 O2 Del Method Room Air 10/22/23 11:05 BMI result Body Mass Index 11.1 Const: General: comfortable and no acute distress Orientation/consciousness: patient oriented x3 HEENT: Other: Unremarkable Head: Yes normal to inspection Neck: Neck: Yes normal visual inspection Chest: Chest palpation & inspection: normal inspection of the chest Resp: Auscultation: clear to auscultation bilaterally Cardio: Palpation: normal PMI Heart sounds: S1 normal heart sound present, S2 normal heart sound present, no gallops, Murmur heart sound present systolic II/ and at the apex and no rubs GI: Palpation (GI): Soft to palpation Back/Spine/Pelvis: Other: unremarkable Skin: General skin exam: no rashes or lesions noted Neuro: General: patient oriented x3 Extrem: General: Yes normal to inspection Psych: Mental Status: mental status grossly normal Objective Labs and Meds 10/22/23 10:46 10/22/23 08:39 Lab results: Laboratory Results - last 24 hr 10/22/23 10/22/23 10/22/23 08:39 10:06 10:44 WBC 5.0 RBC 3.71 L D Hgb 9.5 L D Hct 29.1 L MCV 78.4 L MCH 25.6 L MCHC 32.6 RDW 27.9 H Plt Count 218 D MPV 9.0 L Immature Gran % (Auto) 0.6 H Neut % (Auto) 68.2 Lymph % (Auto) 25.2 [place] % (Auto) 5.4 Eos % (Auto) 0.0 Baso % (Auto) 0.6 Lymph # (Auto) 1.3 [place] # (Auto) 0.3 Eos # (Auto) 0.0 Baso # (Auto) 0.0 Abs Immat Gran (auto) 0.03 Absolute Neuts (auto) 3.4 Absolute Nucleated RBC 0.000 Nucleated RBC % (auto) 0.0 PT INR aPTT Heparin Protocol Sodium 136 Potassium 3.8 Chloride 104 Carbon Dioxide 28 Anion Gap 8 L BUN 21 H Creatinine 0.60 Estim Creat Clear Calc 57.6 Estimated GFR > 60 Random Glucose 76 Calcium 8.2 L Total Bilirubin 1.0 Direct Bilirubin 0.4 AST 84 H ALT 107 H Alkaline Phosphatase 65 Troponin I High Sens 255.4 H* 724.8 H* D B-Natriuretic Peptide 337 H Total Protein 5.3 L Albumin 3.1 L Lipase 37 Urine Color Yellow Urine Appearance Clear Urine pH 6.0 Ur Specific [place] 1.010 Urine Protein Negative Urine Glucose (UA) Negative Urine Ketones Negative Urine Blood Trace H Urine Nitrite Negative Ur Leukocyte Esterase Negative Urine RBC 3-5 H Urine WBC 0-5 Ur Squamous Epith Cells 0-2 Urine Bacteria None Seen Hyaline Casts 0-2 Stool Occult Blood NEGATIVE 10/22/23 10/22/23 10:46 12:07 WBC 7.0 RBC 4.00 L Hgb 10.2 L Hct 31.8 L MCV 79.5 L MCH 25.5 L MCHC 32.1 RDW 28.0 H Plt Count 204 MPV 9.7 Immature Gran % (Auto) Neut % (Auto) Lymph % (Auto) [place] % (Auto) Eos % (Auto) Baso % (Auto) Lymph # (Auto) [place] # (Auto) Eos # (Auto) Baso # (Auto) Abs Immat Gran (auto) Absolute Neuts (auto) Absolute Nucleated RBC 0.000 Nucleated RBC % (auto) 0.0 PT 10.4 L INR 0.9 aPTT Heparin Protocol 30.3 L Sodium Potassium Chloride Carbon Dioxide Anion Gap BUN Creatinine Estim Creat Clear Calc Estimated GFR Random Glucose Calcium Total Bilirubin Direct Bilirubin AST ALT Alkaline Phosphatase Troponin I High Sens B-Natriuretic Peptide Total Protein Albumin Lipase Urine Color Urine Appearance Urine pH Ur Specific [place] Urine Protein Urine Glucose (UA) Urine Ketones Urine Blood Urine Nitrite Ur Leukocyte Esterase Urine RBC Urine WBC Ur Squamous Epith Cells Urine Bacteria Hyaline Casts Stool Occult Blood ECG Interpretation: EKG with sinus bradycardia at 39/Min; no significant ST-T changes and otherwise unremarkable. Normal NM and corrected QT. On telemetry, currently she is in the 70s. Imaging Radiologist's impression: Impressions Chest X-Ray 10/22/23 07:20 IMPRESSION: Hyperinflated lungs without acute process. Abdomen/Pelvis CT 10/22/23 08:11 IMPRESSION: Limited exam due to lack of IV contrast. 1. No acute intra-abdominal process seen. 2. Significant improvement in the ascites compared to previous study 11/29/2021. 3. Colonic diverticulosis without diverticulitis. Fleischner guidelines were followed. Assessment and Plan (1) Non-ST elevated myocardial infarction: Status: Acute (2) Bradycardia: Status: Acute (3) Acute suprapubic pain: Status: Acute Plan Based on troponins, clear evidence of non ST elevation myocardial infarction. Echocardiogram with diminished LVEF as well as wall motion abnormalities. Findings discussed with patient, but she continues to state that the only thing that is bothering her is her bladder spasm and not the heart. We discussed about a diagnostic catheterization, but she would not rather have it at this time. She states that she would absolutely like only the bladder issues addressed at this time and does not want to be transferred to [facility]. Hence in this setting, we can treat her medically at least for the time being. IV heparin drip. Aspirin. It seems she has had low hemoglobins in the past but negative stool heme test. With regard to the bradycardia, could be related to her low body weight as well as regular running as described by patient. Any case, no specific management for that. Just avoid beta-blockers. With regard statins, may not need high dose as she is of low body weight. Discussed with hospitalist. Procedures Date of Service Date of Service: 10/22/23
[2023-10-22] MEDS: 0.9 % Sodium Chloride Flush 3 ML SYRINGE IVFLUSH ×2 (16:52→20:54)
[2023-10-22 17:33] VITALS: BMI 13.3
[2023-10-22 19:02] LABS: PTT Heparin Drip 45.7 SEC (53-77.9)
[2023-10-22 20:00] VITALS: BP 124/66; PULSE 53; RESP 18; TEMP 36.4; O2SAT 100
[2023-10-22] MEDS: Heparin Sodium,Porcine 5,000 UNIT/ML VIAL 1200 UNIT IVPUSH (20:03)
[2023-10-22] MEDS: Atorvastatin Calcium 40 MG TABLET PO (20:52)
[2023-10-23] VITALS (7 sets, daily range): BP systolic 93–132; BP diastolic 58–85; PULSE 56–59; RESP 16–18; TEMP 36.6–36.8; O2SAT 99–100; BMI 13.3
[2023-10-23] MEDS: Morphine Sulfate 2 MG/ML CARTRIDGE 1 MG IVPUSH ×4 (00:49→14:03)
[2023-10-23 02:45] LABS: PTT Heparin Drip 57.6 SEC (53-77.9)
[2023-10-23] MEDS: Acetaminophen 325 MG TABLET 650 MG PO (05:15)
--- NOTE | 2023-10-23 07:43 | PC.NURSE ---
skin tear noted to abdomen, tegaderm in place with bloody drainage, pt refused to allow dressing to be changed. Airloss bed applied, and wound consult ordered to evaluate skin. notified of bleeding through her clothes due to pt being on heparin gtt. Next PTT due to be drawn at 0830. medicated with morphine 1 mg IV q4h for c/o pain to bladder per pt.
[2023-10-23 09:00] LABS: Hematocrit 31.1 % (37.0-47.0); Mean Corpuscular HGB Conc 32.2 g/dl (31.0-35.0); Mean Corpuscular Hemoglobin 25.8 pg (27.0-33.0); Mean Corpuscular Volume 80.4 fL (80.0-98.0); Mean Platelet Volume 9.9 fL (9.4-12.3); Platelet Count 203 X10*3/uL (160-400); Red Blood Count 3.87 X10*6/uL (4.20-5.50); Red Cell Distribution Width 28.3 % (11.0-16.0); White Blood Count 5.2 X10*3/uL (4.8-10.8)
--- NOTE | 2023-10-23 09:06 | PM.PNCARD ---
Subjective Subjective Date of Service: 10/23/23 Interval history: Denies any chest pain or cardiac symptoms. Review of Systems Review of Systems Yes all other systems are reviewed and are negative Constitutional: Reports as per HPI and Reports no additional constitutional complaints Eyes: Reports as per HPI and Denies no additional eye complaints Denies system reviewed and no additional complaints, except as documented and Reports as per HPI Cardiovascular: Reports as per HPI, Reports no additional cardiovascular complaints, Denies acrocyanosis, Denies cool extremities, Reports chest pain, Denies leg edema, Denies lightheadedness, Denies palpitations and Denies dyspnea Respiratory: Reports as per HPI, Denies no additional respiratory complaints and Denies dyspnea Gastrointestinal: Reports as per HPI and Denies no additional gastrointestinal complaints Musculoskeletal: Reports no additional musculoskeletal complaints and Reports as per HPI Skin/Breast: Reports system reviewed and no additional complaints, except as docu Reports system reviewed and no additional complaints, except as documented and Reports as per HPI Psychiatric: Reports no additional psychiatric complaints and Reports as per HPI Endocrine: Reports no additional endocrine complaints, Reports as per HPI and Denies palpitations Hematologic/Lymphatic: Reports no additional hematologic/lymphatic complaints and Reports as per HPI Allergic/Immunologic: Reports no additional allergic/immunologic complaints and Reports as per HPI Physical Exam Vital Signs: Last Vital Signs Temp 98.2 F 10/23/23 07:28 Pulse 56 10/23/23 07:28 Resp 18 10/23/23 07:28 BP 100/62 10/23/23 08:22 Pulse Ox 100 10/23/23 07:28 O2 Del Method Room Air 10/23/23 07:28 BMI result Body Mass Index 13.3 Const General: comfortable and no acute distress Orientation/consciousness: patient oriented x3 HEENT Other: Unremarkable Head: Yes normal to inspection Neck Neck: Yes normal visual inspection Chest Chest palpation & inspection: normal inspection of the chest Resp Auscultation: clear to auscultation bilaterally Cardio Palpation: normal PMI Heart sounds: S1 normal heart sound present, S2 normal heart sound present, no gallops, Murmur heart sound present systolic II/ and at the apex and no rubs GI Palpation (GI): Soft to palpation Back/Spine/Pelvis Other: unremarkable Skin General skin exam: no rashes or lesions noted Neuro General: patient oriented x3 Extrem General: Yes normal to inspection Psych Mental Status: mental status grossly normal Objective Labs and Meds 10/23/23 08:49 10/23/23 08:49 Lab results: Laboratory Results - last 24 hr 10/22/23 10/22/23 10/22/23 08:39 10:06 10:44 WBC RBC Hgb Hct MCV MCH MCHC RDW Plt Count MPV Absolute Nucleated RBC Nucleated RBC % (auto) PT INR aPTT Heparin Protocol Sodium 136 Potassium 3.8 Chloride 104 Carbon Dioxide 28 Anion Gap 8 L BUN 21 H Creatinine 0.60 Estim Creat Clear Calc 57.6 Estimated GFR > 60 Random Glucose 76 Calcium 8.2 L Total Bilirubin 1.0 Direct Bilirubin 0.4 AST 84 H ALT 107 H Alkaline Phosphatase 65 Troponin I High Sens 255.4 H* 724.8 H* D B-Natriuretic Peptide 337 H Total Protein 5.3 L Albumin 3.1 L Lipase 37 Stool Occult Blood NEGATIVE 10/22/23 10/22/23 10/22/23 10:46 12:07 18:45 WBC 7.0 RBC 4.00 L Hgb 10.2 L Hct 31.8 L MCV 79.5 L MCH 25.5 L MCHC 32.1 RDW 28.0 H Plt Count 204 MPV 9.7 Absolute Nucleated RBC 0.000 Nucleated RBC % (auto) 0.0 PT 10.4 L INR 0.9 aPTT Heparin Protocol 30.3 L 45.7 L D Sodium Potassium Chloride Carbon Dioxide Anion Gap BUN Creatinine Estim Creat Clear Calc Estimated GFR Random Glucose Calcium Total Bilirubin Direct Bilirubin AST ALT Alkaline Phosphatase Troponin I High Sens B-Natriuretic Peptide Total Protein Albumin Lipase Stool Occult Blood 10/23/23 10/23/23 02:30 08:49 WBC 5.2 RBC 3.87 L Hgb 10.0 L Hct 31.1 L MCV 80.4 MCH 25.8 L MCHC 32.2 RDW 28.3 H Plt Count 203 MPV 9.9 Absolute Nucleated RBC 0.000 Nucleated RBC % (auto) 0.0 PT INR aPTT Heparin Protocol 57.6 D Sodium Potassium Chloride Carbon Dioxide Anion Gap BUN Creatinine Estim Creat Clear Calc Estimated GFR Random Glucose Calcium Total Bilirubin Direct Bilirubin AST ALT Alkaline Phosphatase Troponin I High Sens B-Natriuretic Peptide Total Protein Albumin Lipase Stool Occult Blood Progress Note: A&P Assessment and plan (1) Non-ST elevated myocardial infarction: Status: Acute (2) Bradycardia: Status: Acute (3) Acute suprapubic pain: Status: Acute Plan Based on troponins, clear evidence of non ST elevation myocardial infarction. Echocardiogram with diminished LVEF as well as wall motion abnormalities. Again discussed with patient about the findings. Yesterday, she was not too keen on cardiac catheterization but today she is more amenable. Discussed with Dr. Trujillo as well. Her procedural risk could be higher because of low body weight. Otherwise, she is on IV heparin drip as well as aspirin. Because of sinus bradycardia, no beta-blockers. She has been put on statins but she also has abnormal LFTs and hence that will need to be monitored. Probably just use a lower dose. Discussed with Angelika Leal. Requested bed at [facility] for transfer. Time Spent With Patient Time: Total time managing care of this patient today ____ minutes. Progress Note: Quality Stroke Does the patient have a stroke diagnosis?: No Procedures Date of Service Date of Service: 10/23/23
[2023-10-23] MEDS: Multivitamin TABLET 1 TAB PO (09:12)
[2023-10-23] MEDS: Calcium + Vitamin D 250 MG TABLET 500 MG PO (09:12)
[2023-10-23] MEDS: Aspirin 81 MG TAB.CHEW PO (09:12)
[2023-10-23] MEDS: 0.9 % Sodium Chloride Flush 3 ML SYRINGE IVFLUSH (09:13)
[2023-10-23 09:31] LABS: INTERNATIONAL NORM RATIO 0.9 (0.9-1.1); Prothrombin Time 11.1 SEC (11.1-13.3)
[2023-10-23 09:33] LABS: PTT Heparin Drip 75.5 SEC (53-77.9)
[2023-10-23 09:37] LABS: Alanine Aminotransferase 86 U/L (0-31); Albumin Level 2.8 g/dL (3.5-5.0); Alkaline Phosphatase 60 U/L (39-117); Anion Gap 11 (12-20); Aspartate Amino Transferase 65 U/L (5-31); Bilirubin Total 1.3 mg/dL (0.0-1.0); Blood Urea Nitrogen 26 mg/dL (9-16); Calcium 8.6 mg/dL (8.4-10.2); Carbon Dioxide 26 mmol/L (22-29); Chloride 103 mmol/L (96-108); Creatinine Clr Calc Pharmacy 53.4; Estimated Glomerular Filt Rate > 60; Glucose Random 57 mg/dL (60-115); Potassium 4.5 mmol/L (3.3-5.1); Sodium 135 mmol/L (135-145); Total Protein 5.2 g/dL (6.5-8.0)
--- NOTE | 2023-10-23 09:45 | MHC.CLN ---
RE: CONSULT PT IS SEVERELY MALNOURISHED PT WITH SEVERELY DEPLETED SUBCUTANEOUS FAT AND MUSCLE MASS, BMI 13.3 WITH 25% SIGNIFICANT WT LOSS X 2 YEARS WITH CHRONIC HX DISORDERED EATING CONSUMING 1 MEAL PER DAY AND EXCESSIVE EXERCISE RUNNING DAILY. PREVIOUS WT HX: 48.9 KG (11/07/21) TRIGGERS FOR 25% WT LOSS X 2 YEARS PT APPEARS CACHEXIC AND REPORTS DECLINE IN HEALTH S/P HIP FX 11/2021 HOWEVER PT CONTINUES TO RUN DAILY INCLUDING ON DAY OF ADMISSION S/P NSTEMI. PT ADAMENT THAT HEALTH ISSUES ARE ONLY CONCERN FOR HER ARE BLADDER SPASMS. DIET RX: CARDIAC-APPROPRIATE FOOD PREFERENCES RECORDED AND SENT TO [facility]. PT WITH PARTICULAR FOOD PREFERENCES ENSURE MAX TID IN PLACE-WILL CHANGE TO BID TO PROVIDE 300KCALS, 60G PROTEIN PT REQUESTS SHE WILL DRINK SUPPLEMENT BUT MUST BE ON TRAY UNOPENED. PT WITH DISORDERED EATING, HX MALNUTRITION AND EATING DISORDER CONSUMES ONLY 1 MEAL PER DAY DESPITE KNOWN WT LOSS. RECOMMEND REFERRAL TO [facility]ORDER SPECIAL[facility] F[facility] R/T SEVERE PCM AND NEW NSTEMI RECOMMEND PSYCH CONSULT
[2023-10-23 09:48] LABS: Troponin-I High Sensitivity 722.7 ng/L (<3.5-17.0)
--- NOTE | 2023-10-23 12:31 | P.CDIM_ITS ---
PROVIDER RESPONSE TEXT: To clarify, the appropriate diagnosis supported by the clinical indicators: Other (explain): NSTEMI QUERY TEXT: PHYSICIAN'S DOCUMENTATION REQUEST Date of Query: 10/23/2023 11:19 AM EST Patient Name: Karen Long Admit Date: 10/22/2023 Dear Angelika Leal, A review of the medical record indicates additional documentation may be needed. Please review below and update the documentation accordingly. Clinical Indicators: Cardiology consult note dated 10/23 - Based on troponins, clear evidence of non ST elevation myocardia l infarction. IV heparin drip as well as aspirin. Chest pains on admit. Requested bed at [facility] for transfer. Please clarify the type of the documented NSTEMI if known NSTEMI due to demand ischemia, Type 2 [place] etc. Other (explain) Clinically unable to determine (explain) Thank you, Nannette Duong, CCS, CDIS Use of terms such as suspected, likely, concern for, or probable (associated with a specific diagnosi s that is being evaluated, monitored, or treated as if it exists) are acceptable and can be coded in the inpatient se tting, when documented at the time of discharge. Please use your independent medical judgment in providing your response. THIS QUERY IS PART OF THE PERMANENT MEDICAL RECORD
--- NOTE | 2023-10-23 13:36 | PM.DS ---
DS: Providers Provider Date of Service: 10/23/23 Date of admission: 10/22/23 13:05 Primary care physician: Nonstaff Physician Consults: 10/22/23 11:45 Consult to Cardiology Routine Consulting Provider: [facility] [place] [facility] Reason for consultation: NSTEMI 10/23/23 05:59 Consult to Wound Care Routine Reason for consultation: numerous skin tears, fragile skin Has provider been notified: No DS: Diagnosis Discharge Diagnosis (1) Non-ST elevated myocardial infarction: Status: Acute (2) Bradycardia: Status: Acute (3) Acute suprapubic pain: Status: Acute DS: Summary Hospital Course Hospital Course: 63-year-old female presented to the ER with multiple complaints that started last night at 21:00. After she urinated she started to have suprapubic pain the patient called it uterus pain , patient is unable to urinate after the and complaining of suprapubic pain and pressure the patient thinking that pain is causing her chest pain and being dizzy, patient thinks she is dehydrated as she does not eat or drink much of anything and she runs outside on a daily basis she reports. She reported the chest pressure being in the middle of her chest without radiation or other associated symptoms. She denied shortness breath, nausea, vomiting, diarrhea. She reported that her condition has worsened over the last year since her hip surgery. She was also noted to have bradycardia, sinus bradycardia on EKG, does not take any rate lowering medications but again she does run on a daily basis. She also reported having palpitations over the last month at least, feeling her heart go fast and slow. She has no history of atrial fibrillation. In the ER, initial troponin 255 with repeat of 724, BNP 337 but does not appear to be in acute heart failure, heart rate as low as 39. She was started on IV heparin in the ER, given aspirin, nitroglycerin, morphine. She will be admitted for further management and treatment of acute NSTEMI. 63-year-old woman treated for acute NSTEMI. Started on IV heparin, aspirin, low-dose statin (due to weight). Patient initially had chest pressure that lasted throughout the night prior to admission even some in the morning. Her troponin peaked at 724.8, no obvious ischemic changes noted on EKG but she was noted to be bradycardic. She did report that she is a runner and does so almost everyday for many years this may have been the cause to that as she has not on any rate lowering medications. Her heart rate has remained stable and no heart block noted on EKG. She did have an episode of hypoglycemia that was quickly treated with Ensure drink. She reports that she does not eat or drink much possibly once a day and she does have severe protein calorie malnutrition. She was seen by dietitian who recommended eating disorder clinic at [facility], this might benefit her. At this point patient is stable and ready for discharge to [facility] for cardiac catheterization. Time Attestation Discharge coordination time: Greater than 30 minutes Quality: Safe Use of Opioids Does Pt have an Active Cancer Diagnosis on the Problem List?: No Quality: Stroke Does the patient have a stroke diagnosis?: No Physical Exam Vital Signs: Vital Signs: Last Vital Signs Temp 98.2 F 10/23/23 11:11 Pulse 59 10/23/23 11:11 Resp 18 10/23/23 11:11 BP 97/60 10/23/23 11:11 Pulse Ox 99 10/23/23 11:11 O2 Del Method Room Air 10/23/23 11:11 BMI result Body Mass Index 13.3 Appearing in no acute distress head is normocephalic atraumatic eyes pupils are PERRLA sclera is anicteric mouth throat mucous membranes are intact and moist neck is supple no lymphadenopathy, no JVD noted lung sounds are clear to auscultation heart regular rate rhythm, clear S1, S2 positive bowel sounds, abdomen is soft, nontender neuro patient is alert x3, no focal deficits DS: Data Data Completed and Pending Completed studies during hospitalization [Text1]: Procedures Fluoroscopy of Superior Vena Cava, Guidance (12/01/21) Insertion of Infusion Device into Left Cephalic Vein, Percutaneous Approach (12/01/21) Insertion of Infusion Device into Superior Vena Cava, Percutaneous Approach (12/01/21) Reposition Left Upper Femur with Intramedullary Internal Fixation Device, Percutaneous Approach (11/15/21) Transfusion of Nonautologous Red Blood Cells into Peripheral Vein, Percutaneous Approach (12/01/21) Labs on day of discharge: Laboratory Results - last 24 hr 10/22/23 10/23/23 10/23/23 18:45 02:30 08:38 WBC RBC Hgb Hct MCV MCH MCHC RDW Plt Count MPV Absolute Nucleated RBC Nucleated RBC % (auto) PT INR aPTT Heparin Protocol 45.7 L D 57.6 D Sodium Potassium Chloride Carbon Dioxide Anion Gap BUN Creatinine Estim Creat Clear Calc Estimated GFR Random Glucose Calcium Total Bilirubin AST ALT Alkaline Phosphatase Troponin I High Sens 722.7 H* Total Protein Albumin 10/23/23 10/23/23 08:49 09:18 WBC 5.2 RBC 3.87 L Hgb 10.0 L Hct 31.1 L MCV 80.4 MCH 25.8 L MCHC 32.2 RDW 28.3 H Plt Count 203 MPV 9.9 Absolute Nucleated RBC 0.000 Nucleated RBC % (auto) 0.0 PT Cancelled 11.1 INR Cancelled 0.9 aPTT Heparin Protocol 75.5 D Sodium 135 Potassium 4.5 Chloride 103 Carbon Dioxide 26 Anion Gap 11 L BUN 26 H Creatinine 0.61 Estim Creat Clear Calc 53.4 Estimated GFR > 60 Random Glucose 57 L* Calcium 8.6 Total Bilirubin 1.3 H AST 65 H ALT 86 H Alkaline Phosphatase 60 Troponin I High Sens Total Protein 5.2 L Albumin 2.8 L Discharge Plan Discharge Anticipated Discharge Date/Time: 10/23/23 13:30 Patient Disposition: Xfer Acute Care Hospital Discharge Diagnosis: NSTEMI Bradycardia urinary retention Discharge Medications: New atorvastatin 40 mg Tablet 40 mg PO BEDTIME Qty: 30 0RF aspirin 81 mg Tablet,Chewable 81 mg PO DAILY Qty: 30 0RF heparin(porcine) in 0.45% NaCl 25,000 unit/250 mL Parenteral Solution 25,000 unit continuous IV infusion .Q0M Qty: 6000 0RF Continued multivitamin Tablet 1 tab PO DAILY calcium carbonate-vitamin D3 [Calcium 500 + D] 500 mg-10 mcg (400 unit) Tablet 1 tab PO DAILY Discharge Orders: Discharge Order (Routine); Ordered 10/23/23 Ordered By: Angelika Leal Diet: Advance to usual diet Activity on Discharge: As tolerated Stand Alone Forms: Patient Portal Discharge page Care Plan Goals: Transfer with IV heparin Health Concerns: NSTEMI Bradycardia urinary retention Plan of Treatment: Transfer to [facility] for cardiac catheterization Assessment: See discharge summary
--- NOTE | 2023-10-23 13:47 | PC.NURSE ---
Handoff report given to Pat MCFARLAND at 13:47
[2023-10-23] MEDS: Heparin Sodium,Porcine/1/2NS 25,000 UNIT/250 ML IV.SOLN 4.24 UNIT IVCONT (14:02)
--- NOTE | 2023-10-23 14:46 | MHC.CM.PN ---
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 PT VERIFIES HCP ON FILE IS CORRECT AND PT REPORTS SHE IS FULLY COVID VAXED AND HAD THE FLU SHOT THIS YEAR. PLAN FOR TRANSFER TO [facility] ONCE BED AVAILABLE.
== END 2023-10-23 15:09 | disposition short-term general hospital (02) | DRG 190 ==
LOC: HO.ED 09:57 → HO.EDOVER 13:07 → HO.IMC 15:23
PROVIDERS: Student in an Organized Health Care Education/Training Program; Admitting Provider Nurse Practitioner Acute Care; Emergency Provider Emergency Medicine; Visit Provider Nurse Practitioner Acute Care
DX: I21.4 Non-ST elevation (NSTEMI) myocardial infarction (principal); E43 Unspecified severe protein-calorie malnutrition; E88.A Wasting disease (syndrome) due to underlying condition; D50.9 Iron deficiency anemia, unspecified; E16.2 Hypoglycemia, unspecified; R00.1 Bradycardia, unspecified; Z68.1 Body mass index [BMI] 19.9 or less, adult; Z79.82 Long term (current) use of aspirin; Z87.891 Personal history of nicotine dependence; Z79.899 Other long term (current) drug therapy
CPT/HCPCS: 36415; 71045; 74176; 80048; 80053; 80076; 81001; 82272; 83690; 83880; 84484; 85025; 85027; 85610; 85730; 93005; 93306; 99285; C1758; J1644; J2270; Q9957

== ENCOUNTER → 2023-10-22 06:38 | Outpatient (BNV) | payer MEDICAID, SELFPAY | PROVIDERS: Emergency Provider Emergency Medicine; Visit Provider Internal Medicine | DX: I21.4 Non-ST elevation (NSTEMI) myocardial infarction (principal); I34.0 Nonrheumatic mitral (valve) insufficiency; R00.1 Bradycardia, unspecified | CPT/HCPCS: 93010; 93306 ==

== ENCOUNTER → 2023-10-22 13:05 | Outpatient (BNV) | payer MEDICAID, SELFPAY | PROVIDERS: Admitting Provider Nurse Practitioner Acute Care; Emergency Provider Emergency Medicine; Visit Provider Nurse Practitioner Acute Care | DX: I21.4 Non-ST elevation (NSTEMI) myocardial infarction (principal); R00.1 Bradycardia, unspecified; R10.2 Pelvic and perineal pain | CPT/HCPCS: 99223; 99239 ==

== ENCOUNTER → 2023-10-22 13:05 | Outpatient (BNV) | payer MEDICAID, SELFPAY | PROVIDERS: Admitting Provider Nurse Practitioner Acute Care; Emergency Provider Emergency Medicine; Visit Provider Internal Medicine | DX: I21.4 Non-ST elevation (NSTEMI) myocardial infarction (principal); R00.1 Bradycardia, unspecified; R10.2 Pelvic and perineal pain | CPT/HCPCS: 99223; 99233 ==

== ENCOUNTER 2023-11-05 10:10 | Outpatient (REF) | payer MEDICAID, SELFPAY ==
[2023-11-06 04:08] LABS: HBc Num1 0.12 S/CO (0.00-0.79); HBsAGNum1 0.31 S/CO (0.00-0.99); Hepatitis A Antibody IgM 0.14 Index (0-0.79); Hepatitis B Core Antibody Nonreactive (Nonreactive); Hepatitis B Surface Antigen Negative (Negative); ~Hepatitis A Antibody IgM Nonreactive (Nonreactive)
[2023-11-06 05:56] LABS: HBS Num1 0.07 mIU/mL (0-7.99); ~HepC Num1 0.09 S/CO (0.00-0.79); ~Hepatitis B Surface Antibody NONREACTIVE (Nonreactive); ~Hepatitis C Antibody Nonreactive (Nonreactive)
== END 2023-11-05 10:11 | disposition home or self-care (01) ==
LOC: HO.HMGCLDS 10:10
PROVIDERS: PCP Internal Medicine; Visit Provider Internal Medicine
DX: R53.83 Other fatigue (principal); R79.89 Other specified abnormal findings of blood chemistry
CPT/HCPCS: 36415; 86704; 86706; 86709; 86803; 87340

== ENCOUNTER 2023-11-08 15:29 | Emergency (ER) | payer OTHER, SELFPAY ==
--- NOTE | ~2023-11-08 | XR_ITS ---
EXAMINATION: XR CHEST CLINICAL INFORMATION: Chest pain. COMPARISON: Chest radiograph 10/22/2023 and 12/06/2021. TECHNIQUE: AP view of the chest was obtained. FINDINGS: Again noted hyperinflated lungs. No new focal airspace densities. No pleural effusion or pneumothorax. Normal heart size. No acute osseous findings. XR/XR chest 1V IMPRESSION: Stable hyperinflated lungs. No acute cardiopulmonary findings.
--- NOTE | 2023-11-08 15:32 | ECG_ITS ---
Test Reason : PALPITATION Blood Pressure : / mmHG Vent. Rate : 056 BPM Atrial Rate : 056 BPM P-R Int : 154 ms QRS Dur : 078 ms QT Int : 432 ms P-R-T Axes : 085 070 -88 degrees QTc Int : [address] & T wave abnormality, consider inferior ischemia Abnormal ECG When compared with ECG of 22-OCT-2023 06:38, T wave inversion now evident in Inferior leads Referred By: Generic ED Physician Electronically Signed By:JAE LORA MD
[2023-11-08 15:39] VITALS: BP 113/62; PULSE 60; RESP 18; TEMP 36.7; O2SAT 100; BMI 11.6
--- NOTE | 2023-11-08 16:23 | PC.NURSE ---
patient ambulates with steady gait to the bathroom
--- NOTE | 2023-11-08 16:59 | ED.ARRPALP ---
HPI - Arrhythmia/Palpitations General Chief Complaint: Arrhythmia/Palpitations Stated Complaint: ABN EKG COMING FROM PCP OFFICE Time Seen by Provider: 11/08/23 15:54 History of Present Illness HPI narrative: Patient is a 63-year-old female history of coronary artery disease. Had an NSTEMI 2 weeks ago. Patient was at [facility] had a workup subsequently was sent to [facility] for cardiac catheterization. Unfortunately once patient got to [facility] the cath was never done. Patient came back in today because she feel palpitation after exercising for 30 minutes. Patient feels slightly short of breath heart beating fast but regular lasting approximately 5 minutes then subsided. Patient had similar effect last night after walking on the treadmill for 30 minutes. Went to see her primary doctor today. Had an EKG done. There was changes from previous in the sent to the emergency department for further evaluation. Patient denies any fever chills. No cough no congestion or upper respiratory symptoms. No diaphoresis. Related Data Home Medications Medication Instructions Recorded Confirmed multivitamin 1 tab PO DAILY 12/30/21 10/22/23 calcium carbonate 500 mg-vitamin 1 tab PO DAILY 10/22/23 10/22/23 D3 10 mcg (400 unit) tablet (Calcium 500 + D) Previous Rx's Medication Instructions Recorded aspirin 81 mg chewable tablet 81 mg PO DAILY #30 tabs 10/23/23 atorvastatin 40 mg tablet 40 mg PO BEDTIME #30 tabs 10/23/23 heparin (porcine) 25,000 unit/250 25,000 unit (250 mL) continuous IV 10/23/23 mL in 0.45 % sodium chloride IV infusion .Q0M #6,000 mL soln Allergies Allergy/AdvReac Type Severity Reaction Status Date / Time No Known Allergies Allergy Verified 12/31/21 12:42 [No Known Allergies*] Review of Systems Review of Systems: No fever no chills no chest pain Positive shortness of breath No diaphoresis Yes all other systems are reviewed and are negative PMFSH Past Medical History Medical History Generalized anxiety disorder OCD (obsessive compulsive disorder) Avoidant and restrictive food intake disorder MSSA bacteremia Sacral pressure ulcer Malnutrition Failure to thrive in adult Normocytic anemia Cachexia Closed intertrochanteric fracture of femur Anemia Surgical History History of hip surgery H/O foot surgery Family History Family History Other No family history of coronary artery disease Social History Social History Household Members: Family Household Members Other:: mother Housing: House Do you presently have visiting nurse or other home services: No Alcohol intake: never Comment: PT put on hold due to lack of patient participation Patient Tobacco Use Status: Former Tobacco user Tobacco use type: Cigarette Advance Directives: Yes Advance Directives on File: Yes Advance Directives Date on File: 11/16/21 service: No Current occupational status: unemployed Physical Exam Vital Signs: Vital Signs: Last Vital Signs Temp 98.1 F 11/08/23 18:54 Pulse 57 11/08/23 18:54 Resp 12 11/08/23 18:54 BP 113/58 L 11/08/23 18:54 Pulse Ox 100 11/08/23 18:54 O2 Del Method Room Air 11/08/23 18:54 BMI result Body Mass Index 11.6 Appearance: Alert. Oriented X3. No acute distress. Eyes: Pupils equal, round and reactive to light. ENT: Pharynx normal. Neck: Normal inspection. Neck supple. No lymph nodes noted. No crepitus CVS: Normal heart rate and rhythm. Pulses normal. Normal S1 and S2 Respiratory: No respiratory distress. Breath sounds normal. No Wheezing. No rales Abdomen: Soft and nontender. No rigidity. No distention. good BS x4 Skin: Skin warm and dry. Normal skin color. Normal skin turgor. Extremities: No lower extremity edema. Neurovascular intact to all extremities. No Lacerations. No Rash Neuro: Oriented X 3. No motor deficit. No sensory deficit. Moving all extermities. No slurred speech Medical Decision Making Medical Decision Making MDM Narrative: Positive palpitation after exercise never had the palpitation during exercise patient never had any chest pain. Went to her primary doctor's office and had EKG changes. Sent to the ED for further evaluation. Will get labs will check patient's electrolytes as grossly patient looks cachectic has a history of eating disorder. Troponin stent as patient has had a history of NSTEMI. X-rays ordered. Two sets of cardiac enzymes was done. They were both negative. 8.8 and 9 respectively. Patient's chest x-ray showed no pneumonia no pneumothorax. No congestive heart failure. Hemoglobin is 10.4 there is no evidence for anemia. Patient's electrolytes shows an elevated BUN creatinine consistent with dehydration. GFR was normal. Patient's case discussed with cardiology. Significant EKG changes discussed. Most likely secondary to NSTEMI. [place]ascade given the negative troponin patient can be followed up on an outpatient basis. Patient never had a syncopal episode never had a near syncopal episode. Will require close follow-up. In stable condition. Differential Diagnosis Differential Diagnoses: The differential diagnosis associated with the presentation includes Consult Healthcare Provider Management of the patient was discussed with: In [employer] (Cardiology) Lab Data MDM Lab Attestation statement: I reviewed the patient's lab results. 11/08/23 17:19 11/08/23 17:19 Labs: Lab Results 11/08/23 11/08/23 11/08/23 Range/Units 17:19 17:19 19:12 WBC 6.6 (4.8-10.8) X10*3/uL RBC 3.89 L (4.20-5.50) X10*6/uL Hgb 10.4 L (12.0-16.0) g/dl Hct 32.8 L (37.0-47.0) % MCV 84.3 (80.0-98.0) fL MCH 26.7 L (27.0-33.0) pg MCHC 31.7 (31.0-35.0) g/dl RDW 26.1 H (11.0-16.0) % Plt Count 303 D (160-400) X10*3/uL MPV 8.8 L (9.4-12.3) fL Immature Gran % (Auto) 0.2 (0.0-0.4) % Neut % (Auto) 58.2 (45-73) % Lymph % (Auto) 33.4 (20-40) % [place] % (Auto) 7.1 (2-11) % Eos % (Auto) 0.5 (0-4) % Baso % (Auto) 0.6 (0-2) % Lymph # (Auto) 2.2 (1.2-4.9) X10*3/uL [place] # (Auto) 0.5 (0.1-1.2) X10*3/uL Eos # (Auto) 0.0 (0.0-0.4) X10*3/uL Baso # (Auto) 0.0 (0.0-0.2) X10*3/uL Abs Immat Gran (auto) 0.01 (0.00-0.03) X10*3/uL Absolute Neuts (auto) 3.8 (2.0-8.3) x10*3/uL Absolute Nucleated RBC 0.000 (0.0-0.012) X10*3/uL Nucleated RBC % (auto) 0.0 (0.0-0.2) /100WBC Sodium 139 (135-145) mmol/L Potassium 4.0 (3.3-5.1) mmol/L Chloride 100 (96-108) mmol/L Carbon Dioxide 34 H (22-29) mmol/L Anion Gap 9 L (12-20) BUN 18 H (9-16) mg/dL Creatinine 0.65 (0.5-1.4) mg/dL Estim Creat Clear Calc 43.7 Estimated GFR > 60 Random Glucose 70 (60-115) mg/dL Calcium 9.1 9.4 (8.4-10.2) mg/dL Phosphorus 3.2 (2.7-4.5) mg/dL Magnesium 1.9 (1.6-2.6) mg/dL Total Bilirubin 0.9 (0.0-1.0) mg/dL Direct Bilirubin 0.4 (0.0-0.5) mg/dL AST 96 H (5-31) U/L ALT 144 H (0-31) U/L Alkaline Phosphatase 107 (39-117) U/L Troponin I High Sens 8.8 D 9.0 (<3.5-17.0) ng/L B-Natriuretic Peptide 331 H (<100) pg/mL Total Protein 6.5 (6.5-8.0) g/dL Albumin 3.6 (3.5-5.0) g/dL Independent Interpretation I performed an independent interpretation of an: EKG (Sinus heart rate is 60 TX QRS QTC within normal limits there is significant T-wave inversion over lead 2 3 and AVF. This is new when compared to an EKG from October of this year.) and Plain X-Ray (Grossly negative for any acute infiltrate. No pneumothorax) Radiology Impression Discussion of test interpretation with radiology: I have reviewed the radiologist's reading. Independent Historian Clinical information obtained from an independent historian. History obtained from or confirmed by: Parent External Record Review External record reviewed: Inpatient record Chronic Conditions History of eating disorder Social Determinants Patient?s care significantly limited by Social Determinants of Health including: Other Social Determinant of Health Critical Care Time Critical Care Time Total Critical Care Time: 35 Attestation: I have personally provided 35 minutes of critical care time exclusive of time spent on separately billable procedures. ?Time includes review of lab data, radiology results, discussion with consultants, and monitoring for potential decompensation. ?Interventions were performed as documented above Discharge Plan Discharge Clinical Impression: Palpitations Patient Disposition: Home, Self-Care Instructions: Heart Palpitations (ED) Prescriptions: No Action multivitamin Tablet 1 tab PO DAILY calcium carbonate-vitamin D3 [Calcium 500 + D] 500 mg-10 mcg (400 unit) Tablet 1 tab PO DAILY atorvastatin 40 mg Tablet 40 mg PO BEDTIME Qty: 30 0RF aspirin 81 mg Tablet,Chewable 81 mg PO DAILY Qty: 30 0RF heparin(porcine) in 0.45% NaCl 25,000 unit/250 mL Parenteral Solution 25,000 unit continuous IV infusion .Q0M Qty: 6000 0RF Referrals: Edmundo Baldwin MD [Physician] - 11/09/23
--- NOTE | 2023-11-08 17:06 | MHC.EDTECH ---
Brought patient a warm blanket.
[2023-11-08 17:23] LABS: MANUAL DIFF FLAG NO
[2023-11-08 17:25] LABS: Basophils Percent Auto 0.6 % (0-2); Eosinophils Percent Auto 0.5 % (0-4); Hematocrit 32.8 % (37.0-47.0); Hemoglobin 10.4 g/dl (12.0-16.0); Imm Gran Abs Auto 0.01 X10*3/uL (0.00-0.03); Imm Gran Pct Auto 0.2 % (0.0-0.4); Lymphocytes Absolute Auto 2.2 X10*3/uL (1.2-4.9); Lymphocytes Percent Auto 33.4 % (20-40); Mean Corpuscular HGB Conc 31.7 g/dl (31.0-35.0); Mean Corpuscular Hemoglobin 26.7 pg (27.0-33.0); Mean Corpuscular Volume 84.3 fL (80.0-98.0); Mean Platelet Volume 8.8 fL (9.4-12.3); Monocytes Absolute Auto 0.5 X10*3/uL (0.1-1.2); Monocytes Percent Auto 7.1 % (2-11); Neutrophils Absolute Auto 3.8 x10*3/uL (2.0-8.3); Neutrophils Percent Auto 58.2 % (45-73); Platelet Count 303 X10*3/uL (160-400); Red Blood Count 3.89 X10*6/uL (4.20-5.50); Red Cell Distribution Width 26.1 % (11.0-16.0); White Blood Count 6.6 X10*3/uL (4.8-10.8)
[2023-11-08 17:53] LABS: Calcium 9.4 mg/dL (8.4-10.2)
[2023-11-08 17:58] LABS: B Type Natriuretic Peptide 331 pg/mL (<100); Troponin-I High Sensitivity 8.8 ng/L (<3.5-17.0)
[2023-11-08 17:59] LABS: Alanine Aminotransferase 144 U/L (0-31); Albumin Level 3.6 g/dL (3.5-5.0); Alkaline Phosphatase 107 U/L (39-117); Anion Gap 9 (12-20); Aspartate Amino Transferase 96 U/L (5-31); Bilirubin Direct 0.4 mg/dL (0.0-0.5); Bilirubin Total 0.9 mg/dL (0.0-1.0); Blood Urea Nitrogen 18 mg/dL (9-16); Calcium 9.1 mg/dL (8.4-10.2); Carbon Dioxide 34 mmol/L (22-29); Chloride 100 mmol/L (96-108); Creatinine Clr Calc Pharmacy 43.7; Estimated Glomerular Filt Rate > 60; Glucose Random 70 mg/dL (60-115); Magnesium 1.9 mg/dL (1.6-2.6); Phosphorus 3.2 mg/dL (2.7-4.5); Sodium 139 mmol/L (135-145); Total Protein 6.5 g/dL (6.5-8.0)
[2023-11-08 18:54] VITALS: BP 113/58; PULSE 57; RESP 12; TEMP 36.7; O2SAT 100
--- NOTE | 2023-11-08 19:37 | MHC.EDTECH ---
Patient walked to the bathroom
--- NOTE | 2023-11-08 19:40 | MHC.EDTECH ---
Patient given 2 vanilla puddings
[2023-11-08] MEDS: Acetaminophen 325 MG TABLET 650 MG PO (21:24)
== END 2023-11-08 21:44 | disposition home or self-care (01) ==
PROVIDERS: Emergency Provider Emergency Medicine Emergency Medical Services; PCP Internal Medicine
DX: R00.2 Palpitations (principal); D64.9 Anemia, unspecified; F50.82 Avoidant/restrictive food intake disorder; Z68.1 Body mass index [BMI] 19.9 or less, adult; Z79.82 Long term (current) use of aspirin; Z79.02 Long term (current) use of antithrombotics/antiplatelets; Z79.01 Long term (current) use of anticoagulants
CPT/HCPCS: 36415; 71045; 80048; 80076; 82310; 83735; 83880; 84100; 84484; 85025; 93005; 99283; 99284

== ENCOUNTER → 2023-11-08 15:32 | Outpatient (BNV) | payer OTHER, SELFPAY | PROVIDERS: Emergency Provider Emergency Medicine Emergency Medical Services; PCP Internal Medicine; Visit Provider Internal Medicine Cardiovascular Disease | DX: R00.2 Palpitations (principal) | CPT/HCPCS: 93010 ==

== ENCOUNTER 2023-11-19 10:41 | Outpatient (AMB) | payer OTHER, SELFPAY ==
--- NOTE | 2023-11-19 10:55 | A.OFFVIS_ITS ---
Intake Vital Signs 11/19/23 11:00 Height 5 ft 5 in Weight 69 lb 14.185 oz BMI 11.6 Intake Visit Reasons: rectal bleeding, hemorrhoids Intake Note: This patient was referred by for an assessment for CIC, rectal bleeding and hemorrhoids. Patient c/o;reports had rectal bleeding, reports chronic constipation, reports has the sensation to have a bowel movements but when goes to the bathroom unable to have a bowel movements, reports straining with bowel movements. Parts Representative Required: No Accompanied by: Self / Same As Patient Allergies No Known Allergies [No Known Allergies*] Allergy (Verified 11/19/23 11:15) Medication List - Last Reconciled 11/19/23 by Justin Pearson MD aspirin 81 mg PO DAILY atorvastatin 40 mg PO BEDTIME calcium carbonate-vitamin D3 500 mg-10 mcg (400 unit) (Calcium 500 + D) 1 tab PO DAILY heparin(porcine) in 0.45% NaCl 25,000 unit/250 mL 25,000 units (250 mL) continuous IV infusion .Q0M multivitamin 1 tab PO DAILY HPI rectal bleeding, hemorrhoids HPI Details 63-year-old female with multiple medical problems, including recent non STEMI, protein calorie malnutrition, eating disorder, referred to me because of her complaints of constipation and hemorrhoid issues. She says that she has been chronically constipated for so many years now. She says that sometimes she has to take a lot of laxatives to have bowel movements and then she would have multiple bowel movements today. She says that because of her chronic constipation she has occasional bleeding from what she says are hemorrhoids. She denies any actual mass that she feels outside her anus. She says that sometimes she may feels that she has to go to the bathroom multiple times a day although denies diarrhea. She feels that her anal opening is very small and she states that this is the reason why she is constipated and that she has to go to the bathroom several times a day. She appears extremely anxious. She is following surgery office in [facility]. She is supposed to have a cardiac catheterization for her non STEMI last month. She has been on anticoagulation. [facility] Medical History (Updated 11/19/23 @ 11:41 by Justin Pearson MD) Chronic constipation Generalized anxiety disorder OCD (obsessive compulsive disorder) Avoidant and restrictive food intake disorder MSSA bacteremia Sacral pressure ulcer Malnutrition Failure to thrive in adult Normocytic anemia Cachexia Closed intertrochanteric fracture of femur Anemia Surgical History History of hip surgery H/O foot surgery Family History Other No family history of coronary artery disease Social History Household Members: Family Household Members Other:: mother Housing: House Do you presently have visiting nurse or other home services: No Alcohol intake: never Comment: PT put on hold due to lack of patient participation Patient Tobacco Use Status: Former Tobacco user Tobacco use type: Cigarette Advance Directives Date on File: 11/16/21 service: No Current occupational status: unemployed Review of Systems Const Denies chills and Denies fever(s) Card Denies chest pain, Denies dyspnea and Denies dyspnea on exertion Resp Denies cough, Denies dyspnea and Denies dyspnea on exertion GI Reports hematochezia, Denies change in bowel habits and Reports constipation Denies hematuria Musc Denies back pain and Denies limited range of motion Neuro Denies focal weakness and Denies convulsions Psych Details: Extremely anxious Denies depression and Denies mood swings Physical Exam Vital Signs: BMI result Body Mass Index 11.6 Const Other: Appears malnourished and extremely underweight, very anxious looking General: comfortable and no acute distress Orientation/consciousness: patient oriented x3 Neck Neck: Yes no lymphadenopathy Resp Auscultation: clear to auscultation bilaterally Cardio Rhythm: regular rhythm GI Other: Rectal exam shows small external hemorrhoids on both the left and right side, nonthrombosed; digital rectal exam done. Good sphincter tone, no palpable masses, rectal vault empty, no obvious stenosis of the anal canal, no blood on the exam finger, no large hemorrhoids Palpation (GI): Soft to palpation, nontender and no guarding Neuro General: patient oriented x3 Assessment & Plan Assessment & Plan (1) Chronic constipation: Code(s): K59.09 - Other constipation Plan: 63 year female with multiple medical problems as described above, here because of she describes as constipation and hemorrhoid issues. I assured her that the hemorrhoids are not bulky and she would not require any surgical intervention for this at this point. Furthermore, she does not have an obvious anal stenosis. She has good sphincter tone. The rectal vault is empty. I do not see any anal canal lesions. I will start her on Colace and Metamucil. I explained to her that this has to be taken regularly. I told her that I will re-evaluate her in about 2-3 months. I explained to her that she would not benefit from surgical intervention of her hemorrhoids at this time. I also explained to her that she may benefit from gastroenterology consult down the line. She says that she does not recall having colonoscopy before. Coding Level of Care Code New Pt Level 3 (53603) Diagnoses Chronic constipation K59.09
[2023-11-19 11:00] VITALS: BMI 11.6
== END 2023-11-19 11:35 | disposition home or self-care (01) ==
PROVIDERS: PCP Internal Medicine; Referring Provider Internal Medicine; Visit Provider Surgery
DX: K59.09 Other constipation (principal)
CPT/HCPCS: 99203

== ENCOUNTER → 2023-11-19 10:41 | Outpatient (BNVA) | payer OTHER, SELFPAY | PROVIDERS: PCP Internal Medicine; Visit Provider Surgery | DX: K59.09 Other constipation (principal) | CPT/HCPCS: 99202 ==

== ENCOUNTER 2023-12-26 13:12 | Outpatient (AMB) | payer MEDICAID, SELFPAY ==
[2023-12-26 13:27] VITALS: BP 110/74; PULSE 53; BMI 10.6
--- NOTE | 2023-12-26 13:27 | A.OFFVIS_ITS ---
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 She was recently in the hospital. She came for bladder discomfort and in that context had described some chest pressure. Elevated troponins. She was diagnosed to have non ST elevation myocardial infarction. After lot of back and forth discussion, she was sent to [facility]. She was reluctant to undergo any cardiac workup. It was felt that she would be high risk for cardiac catheterization because of very low body weight. Then she was supposed to go for coronary CTA, but that did not happen either mainly for IV access issues. It seems she refused stress testing. Eventually, she was discharged home. She was put on some basic medical regimen but she stopped everything as she felt she could not take those meds due to side effects. Currently, she states she feels fine. She still does not believe that there is a cardiac problem at all. [facility] Medical History (Updated 12/26/23 @ 13:46 by Edmundo Baldwin MD) Chronic constipation Generalized anxiety disorder OCD (obsessive compulsive disorder) Avoidant and restrictive food intake disorder MSSA bacteremia Sacral pressure ulcer Malnutrition Failure to thrive in adult Normocytic anemia Cachexia Closed intertrochanteric fracture of femur Anemia Surgical History History of hip surgery H/O foot surgery Family History Other No family history of coronary artery disease Social History Household Members: Family Household Members Other:: mother Housing: House Do you presently have visiting nurse or other home services: No Alcohol intake: never Comment: PT put on hold due to lack of patient participation Patient Tobacco Use Status: Former Tobacco user Tobacco use type: Cigarette Advance Directives Date on File: 11/16/21 service: No Current occupational status: unemployed Review of Systems Const Denies weakness ENT Denies dizziness Card Denies chest pain, Denies chest pain with activity, Denies syncope, Denies rapid heart rate, Denies pedal edema, Denies edema, Denies leg edema, Denies lightheadedness, Denies palpitations, Denies dyspnea, Denies dyspnea on exertion and Denies orthopnea Resp Denies cough, Denies dyspnea and Denies dyspnea on exertion GI Denies hematochezia and Denies change in stool character Musc Denies abnormal gait, Denies muscle cramps, Denies muscle weakness, Denies numbness, Denies radiating pain into limb and Denies tingling Neuro Denies abnormal gait, Denies dizziness, Denies syncope, Denies numbness, Denies tingling and Denies weakness Endo Denies palpitations Physical Exam Vital Signs: Last Vital Signs Pulse 53 12/26/23 13:27 BP 110/74 12/26/23 13:27 BMI result Body Mass Index 10.6 Const General: comfortable and no acute distress Orientation/consciousness: patient oriented x3 HEENT Other: Unremarkable Head: Yes normal to inspection Neck Neck: Yes normal visual inspection Chest Chest palpation & inspection: normal inspection of the chest Resp Auscultation: clear to auscultation bilaterally Cardio Palpation: normal PMI Heart sounds: S1 normal heart sound present, S2 normal heart sound present, no gallops, Murmur heart sound present systolic II/ and at the apex and no rubs GI Palpation (GI): Soft to palpation Back/Spine/Pelvis Other: unremarkable Skin General skin exam: no rashes or lesions noted Neuro General: patient oriented x3 Extrem General: Yes normal to inspection Psych Mental Status: mental status grossly normal Assessment & Plan Assessment & Plan (1) Non-ST elevated myocardial infarction: Code(s): I21.4 - Non-ST elevation (NSTEMI) myocardial infarction (2) Ischemic cardiomyopathy: Code(s): I25.5 - Ischemic cardiomyopathy (3) Malnutrition: Code(s): E46 - Unspecified protein-calorie malnutrition (4) Failure to thrive in adult: Code(s): R62.7 - Adult failure to thrive Plan In the recent echocardiogram, LVEF of 35-40%. Wall motion abnormality suggestive of underlying coronary disease. Moderate mitral regurgitation. Peak troponin level in the 700s. She was transferred to [facility] but as described above, did not undergo further workup. She absolutely does not want any form of testing. She does not want take any medications either as she believes they will cause side effects. She remains only on aspirin. Also not willing to accept the fact there was a recent cardiac event. So overall, per her wishes no further testing or treatment. At least take low-dose aspirin if able. Ideally some statins. For future, she states she will just follow up with her own PCP. Coding Level of Care Code Est Pt Level 4 (94518) Diagnoses Non-ST elevated myocardial infarction I21.4 Ischemic cardiomyopathy I25.5 Malnutrition E46 Failure to thrive in adult R62.7
== END 2023-12-26 13:41 | disposition home or self-care (01) ==
PROVIDERS: PCP Internal Medicine; Referring Provider Internal Medicine; Visit Provider Internal Medicine
DX: I21.4 Non-ST elevation (NSTEMI) myocardial infarction (principal); I25.5 Ischemic cardiomyopathy; E46 Unspecified protein-calorie malnutrition; R62.7 Adult failure to thrive
CPT/HCPCS: 99214

== ENCOUNTER → 2023-12-26 13:12 | Outpatient (BNVA) | payer MEDICAID, SELFPAY | PROVIDERS: Visit Provider Internal Medicine | DX: I21.4 Non-ST elevation (NSTEMI) myocardial infarction (principal); I25.5 Ischemic cardiomyopathy; E46 Unspecified protein-calorie malnutrition; R62.7 Adult failure to thrive; Z79.82 Long term (current) use of aspirin | CPT/HCPCS: 99212 ==

== ENCOUNTER 2023-12-31 13:17 | Outpatient (REF) | payer MEDICAID, SELFPAY ==
[2023-12-31 16:10] LABS: MANUAL DIFF FLAG NO
[2023-12-31 16:22] LABS: Basophils Absolute Auto 0.1 X10*3/uL (0.0-0.2); Basophils Percent Auto 0.8 % (0-2); Eosinophils Absolute Auto 0.1 X10*3/uL (0.0-0.4); Hematocrit 30.8 % (37.0-47.0); Hemoglobin 9.7 g/dl (12.0-16.0); Imm Gran Abs Auto 0.02 X10*3/uL (0.00-0.03); Imm Gran Pct Auto 0.3 % (0.0-0.4); Lymphocytes Absolute Auto 1.7 X10*3/uL (1.2-4.9); Lymphocytes Percent Auto 28.7 % (20-40); Mean Corpuscular HGB Conc 31.5 g/dl (31.0-35.0); Mean Corpuscular Hemoglobin 26.6 pg (27.0-33.0); Mean Corpuscular Volume 84.4 fL (80.0-98.0); Mean Platelet Volume 9.3 fL (9.4-12.3); Monocytes Absolute Auto 0.4 X10*3/uL (0.1-1.2); Monocytes Percent Auto 5.8 % (2-11); Neutrophils Absolute Auto 3.9 x10*3/uL (2.0-8.3); Neutrophils Percent Auto 63.4 % (45-73); Platelet Count 356 X10*3/uL (160-400); Red Blood Count 3.65 X10*6/uL (4.20-5.50); White Blood Count 6.1 X10*3/uL (4.8-10.8)
[2023-12-31 16:44] LABS: Alanine Aminotransferase 33 U/L (0-31); Albumin Level 3.9 g/dL (3.5-5.0); Alkaline Phosphatase 83 U/L (39-117); Anion Gap 15 (12-20); Aspartate Amino Transferase 40 U/L (5-31); Blood Urea Nitrogen 14 mg/dL (9-16); Calcium 9.7 mg/dL (8.4-10.2); Carbon Dioxide 29 mmol/L (22-29); Chloride 99 mmol/L (96-108); Estimated Glomerular Filt Rate > 60; Glucose Random 65 mg/dL (60-115); Potassium 4.9 mmol/L (3.3-5.1); Sodium 138 mmol/L (135-145); Total Protein 6.8 g/dL (6.5-8.0)
[2024-01-01 14:16] LABS: Iron 27 mcg/dL (30-160); Percent Iron Saturation 7 % (15-50); Total Iron Binding Capacity 379 mcg/dL (228-428); Unsaturated Iron Binding 352 ug/dL
[2024-01-01 14:37] LABS: Ferritin 35 ng/mL (10-250)
== END 2023-12-31 13:18 | disposition home or self-care (01) ==
LOC: HO.HMGCLDS 13:17
PROVIDERS: PCP Internal Medicine; Visit Provider Internal Medicine
DX: D64.9 Anemia, unspecified (principal); R53.83 Other fatigue
CPT/HCPCS: 36415; 80053; 82728; 83540; 85025

== ENCOUNTER 2024-01-09 13:21 | Outpatient (AMB) | payer MEDICAID, SELFPAY ==
[2024-01-09 13:22] VITALS: BMI 10.6
--- NOTE | 2024-01-09 13:22 | MHC.OFFVIS ---
Intake Vital Signs 01/09/24 13:22 Height 5 ft 5 in Weight 63 lb 14.945 oz BMI 10.6 Intake Visit Reasons: Lesion on upper back Intake Note: This patient was referred by for Lesion on upper back. Pt c/o; Onset May 2023, x2 non healing lesion; back and right arm, reports discomfort,itchiness and bleeding. 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 She said that she has had this since May,. She says that these bleed periodically when irritated. He denies pain but does have some discomfort on both areas.. [facility] Medical History (Updated 01/09/24 @ 13:40 by Justin Pearson MD) Skin lesion of right arm Skin lesion of back Chronic constipation Generalized anxiety disorder OCD (obsessive compulsive disorder) Avoidant and restrictive food intake disorder MSSA bacteremia Sacral pressure ulcer Malnutrition Failure to thrive in adult Normocytic anemia Cachexia Closed intertrochanteric fracture of femur Anemia Surgical History History of hip surgery H/O foot surgery Family History Other No family history of coronary artery disease Social History Household Members: Family Household Members Other:: mother Housing: House Do you presently have visiting nurse or other home services: No Alcohol intake: never Comment: PT put on hold due to lack of patient participation Patient Tobacco Use Status: Former Tobacco user Tobacco use type: Cigarette Advance Directives Date on File: 11/16/21 service: No Current occupational status: unemployed Review of Systems Const Denies chills and Denies fever(s) Card Denies chest pain, Denies dyspnea and Denies dyspnea on exertion Resp Denies cough, Denies dyspnea and Denies dyspnea on exertion GI Denies hematochezia and Denies change in bowel habits Denies hematuria Musc Denies back pain and Denies limited range of motion Neuro Denies focal weakness and Denies convulsions Psych Denies depression and Denies mood swings Physical Exam Vital Signs: BMI result Body Mass Index 10.6 Const Other: Appears underweight and cachectic General: comfortable and no acute distress Orientation/consciousness: patient oriented x3 Neck Neck: Yes no lymphadenopathy Resp Auscultation: clear to auscultation bilaterally Cardio Rhythm: regular rhythm GI Palpation (GI): Soft to palpation, nontender and no guarding Back/Spine/Pelvis Other: On the upper back is note of a skin lesion, elevated, defined margins, pearly edges, about 2 cm in diameter, seemed to bleed easily Neuro General: patient oriented x3 Extrem Other: On the right upper arm is note of a skin lesion, mildly elevated, with margins that are not well-defined, also seemed to bleed easily, ulcerating Assessment & Plan Assessment & Plan (1) Skin lesion of back: Code(s): L98.9 - Disorder of the skin and subcutaneous tissue, unspecified Plan: She has skin lesions on both the back and the right upper arm as described above. These appear suspicious for basal cell carcinoma. I explained the technique of excision under local anesthesia. I reviewed the risks including but not limited to bleeding and infections, as well as the benefits and alternatives. She wants to proceed. This procedures will be done in the office on her next visit. (2) Skin lesion of right arm: Code(s): L98.9 - Disorder of the skin and subcutaneous tissue, unspecified Plan: We will proceed with excision under local anesthesia in the office. Coding Level of Care Code Est Pt Level 3 (52168) Diagnoses Skin lesion of back L98.9 Skin lesion of right arm L98.9
== END 2024-01-09 13:43 | disposition home or self-care (01) ==
PROVIDERS: PCP Internal Medicine; Referring Provider Internal Medicine; Visit Provider Surgery
DX: L98.9 Disorder of the skin and subcutaneous tissue, unspecified (principal)
CPT/HCPCS: 99213

== ENCOUNTER → 2024-01-09 13:21 | Outpatient (BNVA) | payer MEDICAID, SELFPAY | PROVIDERS: PCP Internal Medicine; Referring Provider Internal Medicine; Visit Provider Surgery | DX: L98.9 Disorder of the skin and subcutaneous tissue, unspecified (principal) | CPT/HCPCS: 99212 ==

== ENCOUNTER 2024-01-23 14:08 | Outpatient (REF) | payer MEDICAID, SELFPAY | END 2024-01-23 14:09 | disposition home or self-care (01) | LOC: HO.LNP 14:08 | PROVIDERS: PCP Internal Medicine; Visit Provider Surgery | DX: L98.9 Disorder of the skin and subcutaneous tissue, unspecified (principal) | CPT/HCPCS: 88305 ==

== ENCOUNTER 2024-01-23 14:08 | Outpatient (AMB) | payer MEDICAID, SELFPAY ==
--- NOTE | 2024-01-23 14:08 | MHC.OFFVIS ---
Intake Intake Visit Reasons: Excision of skin lesion x2; back and right arm Intake Note: In office procedure: Excision of skin lesion x2; back and right arm. Clarifying Plant Operator Required: No Accompanied by: Other Relationship Allergies No Known Allergies [No Known Allergies*] Allergy (Verified 01/23/24 14:09) HPI Excision of skin lesion x2; back and right arm HPI Details She is here for excision of a skin lesion on the back and on the right arm. [facility] Medical History Skin lesion of right arm Skin lesion of back Chronic constipation Generalized anxiety disorder OCD (obsessive compulsive disorder) Avoidant and restrictive food intake disorder MSSA bacteremia Sacral pressure ulcer Malnutrition Failure to thrive in adult Normocytic anemia Cachexia Closed intertrochanteric fracture of femur Anemia Surgical History History of hip surgery H/O foot surgery Family History Other No family history of coronary artery disease Social History Household Members: Family Household Members Other:: mother Housing: House Do you presently have visiting nurse or other home services: No Alcohol intake: never Comment: PT put on hold due to lack of patient participation Patient Tobacco Use Status: Former Tobacco user Tobacco use type: Cigarette Advance Directives Date on File: 11/16/21 service: No Current occupational status: unemployed Office Procedures Excision Details: She was in supine position. The skin lesion was seen on the right upper arm. This was measuring about 2.8 cm x 2.This area was was prepped and draped. Lidocaine 1% was used for local anesthesia. I made an elliptical incision around this lesion using blade 15. This carried down through excise the full-thickness of the skin with some grossly normal-looking margins. I closed the incision with full-thickness nylon 3-0 interrupted sutures. It is noted that his skin was very brittle and 10 years, and would tear easily so I had to do wide wide bites and reinforced the closure with Steri-Strips. I applied nonstick gauze and dressings on top and wrapped the area with Pooja roll. She tolerated procedure well. There was minimal blood loss. She was then turned in prone position. There was a 2nd lesion on the back. This measured about 2.8 x 2.5 cm. This area was prepped and draped. Lidocaine 1% was used for local anesthesia. I made an elliptical incision around this using blade 15 This entire lesion was excised including some subcutaneous tissue. I closed the incision with full-thickness nylon 3-0 interrupted sutures. Dressings were applied. The procedure was then completed. There was minimal blood loss. She was instructed on good wound care. [id number]/arms/legs 2.1-3cm (Two lesions removed) Procedure code (CPT) selection complete Assessment & Plan Assessment & Plan (1) Skin lesion of right arm: Code(s): L98.9 - Disorder of the skin and subcutaneous tissue, unspecified Plan: Excision was done as described above. She was given wound care instructions. (2) Skin lesion of back: Code(s): L98.9 - Disorder of the skin and subcutaneous tissue, unspecified Plan: Excision was done as described above. She was given wound care instructions and will be seen in the office for removal of sutures. Coding Level of Care Code Procedure Only Diagnoses Skin lesion of right arm L98.9 Skin lesion of back L98.9 CPT Codes Trunk/Arms/Legs - CPT: [id number]/arms/legs 2.1-3cm ([id number])
== END 2024-01-23 15:07 | disposition home or self-care (01) ==
PROVIDERS: PCP Internal Medicine; Referring Provider Internal Medicine; Visit Provider Surgery
DX: C44.612 Basal cell carcinoma of skin of right upper limb, including shoulder (principal); C44.519 Basal cell carcinoma of skin of other part of trunk
CPT/HCPCS: 11603; 11604

== ENCOUNTER 2024-01-28 11:21 | Outpatient (AMB) | payer MEDICAID, SELFPAY ==
--- NOTE | 2024-01-28 11:35 | A.OFFVIS_ITS ---
Vital Signs 01/28/24 11:37 Height 5 ft 5 in Intake Visit Reasons: wound check Intake Note: This patient presents for an assessment for wound check status post excision skin lesion x2. Patient c/o; reports open wounds, reports completed course of nitrofurantoin macrocrystal 50 MG. Tobacco Wetter Required: No Accompanied by: Self / Same As Patient Allergies No Known Allergies [No Known Allergies*] Allergy (Verified 01/28/24 11:39) HPI HPI wound check: Details: She had undergone excision of a lesion from the right arm as well as the upper back last January 23. She called this morning to have a wound check as she says she has pain and is worried about an infection. She lives alone and does not really have somebody who can change her dressings every day. [facility] Medical History Skin lesion of right arm Skin lesion of back Chronic constipation Generalized anxiety disorder OCD (obsessive compulsive disorder) Avoidant and restrictive food intake disorder MSSA bacteremia Sacral pressure ulcer Malnutrition Failure to thrive in adult Normocytic anemia Cachexia Closed intertrochanteric fracture of femur Anemia Surgical History History of surgical removal of skin lesion (~01/23/24) History of hip surgery H/O foot surgery Family History Other No family history of coronary artery disease Social History Household Members: Family Household Members Other:: mother Housing: House Do you presently have visiting nurse or other home services: No Alcohol intake: never Comment: PT put on hold due to lack of patient participation Patient Tobacco Use Status: Former Tobacco user Tobacco use type: Cigarette Advance Directives Date on File: 11/16/21 service: No Current occupational status: unemployed Review of Systems Const Denies chills and Denies fever(s) Physical Exam Const Other: Very anxious as per baseline, cachectic General: no acute distress Resp Effort & Inspection: normal respiratory effort Extrem Other: Excision site on the right upper arm as well as the back with sutures intact, some redness on the surrounding skin, no pus, no fluctuance Assessment & Plan Assessment & Plan (1) Skin lesion of right arm: Code(s): L98.9 - Disorder of the skin and subcutaneous tissue, unspecified Category: Medical Plan: Status post excision. Some redness on the skin surrounding her incisions. I changed all her dressings. I gave her samples of bacitracin. I will prescribe her tramadol as well as Keflex. I will see her in the office again next week. I had counseled her on the benefits of good wound care for now. Her path report shows a basal cell carcinoma, completely excised. (2) Skin lesion of back: Code(s): L98.9 - Disorder of the skin and subcutaneous tissue, unspecified Category: Medical Plan: I have prescribed her tramadol as well as Keflex. I will see her in the office next week. Good wound care was emphasized to her. Her path report shows basal cell carcinoma, completely excised. Medications: New tramadol 50 mg PO TID PRN 15 tabs 0RF pain cephalexin 500 mg PO BID 14 tabs 0RF
== END 2024-01-28 12:02 | disposition home or self-care (01) ==
LOC: HO.HGS 11:22
PROVIDERS: PCP Internal Medicine; Visit Provider Surgery
DX: L98.9 Disorder of the skin and subcutaneous tissue, unspecified (principal)
CPT/HCPCS: 99024

== ENCOUNTER → 2024-01-28 11:21 | Outpatient (BNVA) | payer MEDICAID, SELFPAY | PROVIDERS: PCP Internal Medicine; Visit Provider Surgery | DX: Z48.817 Encounter for surgical aftercare following surgery on the skin and subcutaneous tissue (principal); Z98.890 Other specified postprocedural states | CPT/HCPCS: 99212 ==

== ENCOUNTER 2024-02-04 12:52 | Outpatient (AMB) | payer MEDICAID, SELFPAY ==
--- NOTE | 2024-02-04 12:53 | A.OFFVIS_ITS ---
Intake Visit Reasons: s/p excision of skin lesion x2; back and right arm Intake Note: This patient presents for a follow-up assessment status post excision skin lesion x2 right arm and upper back. Pt c/o; reports pain, ? infection, reports abx are making her feeling nausea, blurred vision and not feeling good after taking them. Service Dismantler Required: No Accompanied by: Self / Same As Patient Allergies No Known Allergies [No Known Allergies*] Allergy (Verified 02/04/24 12:58) HPI HPI s/p excision of skin lesion x2; back and right arm: Details: She is here for follow-up after excision of skin lesions from the back in the right arm last 01/23/2024. She says she has much better pain control now with Tramadol. She denies any new complaints and feels that her incisions are healing better. [facility] Medical History (Updated 02/04/24 @ 13:08 by Justin Pearson MD) Basal cell carcinoma Skin lesion of right arm Skin lesion of back Chronic constipation Generalized anxiety disorder OCD (obsessive compulsive disorder) Avoidant and restrictive food intake disorder MSSA bacteremia Sacral pressure ulcer Malnutrition Failure to thrive in adult Normocytic anemia Cachexia Closed intertrochanteric fracture of femur Anemia Surgical History History of surgical removal of skin lesion (~01/23/24) History of hip surgery H/O foot surgery Family History Other No family history of coronary artery disease Social History Household Members: Family Household Members Other:: mother Housing: House Do you presently have visiting nurse or other home services: No Alcohol intake: never Comment: PT put on hold due to lack of patient participation Patient Tobacco Use Status: Former Tobacco user Tobacco use type: Cigarette Advance Directives Date on File: 11/16/21 service: No Current occupational status: unemployed Review of Systems Const Denies chills and Denies fever(s) Physical Exam Const Other: Cachectic as baseline General: comfortable and no acute distress Resp Effort & Inspection: normal respiratory effort Skin Other: Excision sites on the right arm and the back are both healing well, sutures intact, incisions do not appear infected Assessment & Plan Assessment & Plan (1) Basal cell carcinoma: Code(s): C44.91 - Basal cell carcinoma of skin, unspecified Category: Medical Plan: Status post excision of skin lesions from the back in the right arm. I removed all her sutures. I reinforced the incisions with Steri-Strips Both lesions are basal cell carcinoma carcinoma on pathology. She is aware of this. The margins are negative. She says she needs another refill of the tramadol this coming Sunday. Other than that, she can follow up with me on a p.r.n. basis. Coding Level of Care Code Global (27627) Diagnoses Basal cell carcinoma C44.91
== END 2024-02-04 13:09 | disposition home or self-care (01) ==
PROVIDERS: PCP Internal Medicine; Visit Provider Surgery
DX: C44.91 Basal cell carcinoma of skin, unspecified (principal)
CPT/HCPCS: 99024

== ENCOUNTER → 2024-02-04 12:52 | Outpatient (BNVA) | payer MEDICAID, SELFPAY | PROVIDERS: PCP Internal Medicine; Visit Provider Surgery | DX: Z09 Encounter for follow-up examination after completed treatment for conditions other than malignant neoplasm (principal); C44.91 Basal cell carcinoma of skin, unspecified | CPT/HCPCS: 99212 ==

== ENCOUNTER 2024-02-07 09:33 | Outpatient (REF) | payer MEDICAID, SELFPAY ==
[2024-02-07 10:26] LABS: MANUAL DIFF FLAG NO
[2024-02-07 10:31] LABS: Basophils Absolute Auto 0.1 X10*3/uL (0.0-0.2); Basophils Percent Auto 0.9 % (0-2); Eosinophils Absolute Auto 0.1 X10*3/uL (0.0-0.4); Eosinophils Percent Auto 1.4 % (0-4); Hematocrit 32.4 % (37.0-47.0); Hemoglobin 10.2 g/dl (12.0-16.0); Imm Gran Abs Auto 0.02 X10*3/uL (0.00-0.03); Imm Gran Pct Auto 0.4 % (0.0-0.4); Lymphocytes Absolute Auto 1.1 X10*3/uL (1.2-4.9); Lymphocytes Percent Auto 19.8 % (20-40); Mean Corpuscular HGB Conc 31.5 g/dl (31.0-35.0); Mean Corpuscular Hemoglobin 24.3 pg (27.0-33.0); Mean Corpuscular Volume 77.3 fL (80.0-98.0); Mean Platelet Volume 8.6 fL (9.4-12.3); Monocytes Absolute Auto 0.4 X10*3/uL (0.1-1.2); Monocytes Percent Auto 7.1 % (2-11); Neutrophils Percent Auto 70.4 % (45-73); Platelet Count 405 X10*3/uL (160-400); Red Blood Count 4.19 X10*6/uL (4.20-5.50); White Blood Count 5.7 X10*3/uL (4.8-10.8)
[2024-02-07 11:23] LABS: Alanine Aminotransferase 41 U/L (0-31); Albumin Level 4.2 g/dL (3.5-5.0); Alkaline Phosphatase 98 U/L (39-117); Anion Gap 17 (12-20); Aspartate Amino Transferase 53 U/L (5-31); Bilirubin Total 0.9 mg/dL (0.0-1.0); Blood Urea Nitrogen 8 mg/dL (9-16); Calcium 10.5 mg/dL (8.4-10.2); Carbon Dioxide 29 mmol/L (22-29); Chloride 94 mmol/L (96-108); Estimated Glomerular Filt Rate > 60; Glucose Fasting 75 mg/dL (60-99); Iron 21 mcg/dL (30-160); Percent Iron Saturation 5 % (15-50); Sodium 135 mmol/L (135-145); Total Iron Binding Capacity 430 mcg/dL (228-428); Total Protein 7.7 g/dL (6.5-8.0); Unsaturated Iron Binding 409 ug/dL
[2024-02-07 11:42] LABS: Ferritin 37 ng/mL (10-250); Free T4 (Free Thyroxine) 0.95 ng/dL (0.71-1.85); Thyroid Stimulating Hormone 5.32 uIU/mL (0.32-4.0)
== END 2024-02-07 09:34 | disposition home or self-care (01) ==
LOC: HO.HMGCLDS 09:33
PROVIDERS: PCP Internal Medicine; Visit Provider Internal Medicine
DX: R53.83 Other fatigue (principal); D50.9 Iron deficiency anemia, unspecified
CPT/HCPCS: 36415; 80053; 82728; 83540; 84439; 84443; 85025

== ENCOUNTER 2024-02-27 12:35 | Emergency (ER) | payer MEDICAID, SELFPAY ==
--- NOTE | ~2024-02-27 | CT_ITS ---
Karen Long ( age 63Y ) : 1960 PID: [id number] EXAMINATION: CT ABDOMEN AND PELVIS WITHOUT CONTRAST CLINICAL INFORMATION: Abdominal pain COMPARISON: CT abdomen pelvis 10/22/2023 TECHNIQUE: Multidetector volumetric imaging was performed from the superior aspect of the liver through the pubic symphysis without intravenous contrast. Sagittal and coronal reformatted images were obtained on the technologist's workstation. This CT examination was performed using dose optimization techniques as appropriate, variously including the following: *Automated exposure control *Adjustment of mA and/or kV according to patient size (this includes techniques or standardized protocols for targeted exams where dose is matched to indication/reason for exam; i.e. extremities or head) *Use of iterative reconstruction technique DLP: 171 mGy-cm FINDINGS: The study is quite limited secondary to lack of oral contrast media, lack of intravenous contrast media and lack of any subcutaneous or retroperitoneal fat. LUNG BASES: Decreased attenuation of cardiac blood pool suggesting severe anemia LIVER, GALLBLADDER, AND BILIARY TREE: The liver is normal in size, shape, and attenuation. No focal hepatic lesion or biliary ductal dilatation is present. The gallbladder is unremarkable with no evidence of radiopaque gallstones, gallbladder wall thickening, or obvious pericholecystic inflammatory changes. PANCREAS: Unremarkable. SPLEEN: Unremarkable. ADRENAL GLANDS: Unremarkable. KIDNEYS AND URETERS: The kidneys are normal in size, shape, and attenuation. No hydronephrosis, hydroureter, or calculi seen. No perinephric stranding. BLADDER: Unremarkable. GASTROINTESTINAL TRACT: Very limited evaluation. Moderate stool burden throughout the colon. No evidence of bowel obstruction. The appendix appears normal. ABDOMINAL WALL: No significant hernia is appreciated. LYMPH NODES: No retroperitoneal lymphadenopathy but evaluation is limited VASCULAR: Severe calcific atherosclerotic changes are present in the aorta and iliofemoral vessels. There is no evidence of an abdominal aortic aneurysm. PELVIC VISCERA: Unremarkable. The uterus is not seen with certainty but could be atrophic. An abnormal adnexal mass is not identified. OSSEOUS STRUCTURES: Intramedullary toni and screw left femur. Mild degenerative changes seen throughout the spine. CT/CT abdomen pelvis wo IV con IMPRESSION: 1. Very limited study secondary to cachexia, lack of oral and intravenous contrast media. 2. No acute intra-abdominal process is seen. 3. Incidental note made of severe anemia, severe atherosclerotic changes and degenerative changes in the spine. Fleischner guidelines were followed.
[2024-02-27 12:42] VITALS: BP 132/96; BP 149/64; PULSE 63; PULSE 67; RESP 18; TEMP 36.9; O2SAT 100; O2SAT 99; BMI 13.7
--- NOTE | 2024-02-27 12:46 | ED.GENADULT ---
HPI - General Adult General Chief complaint: Urogenital-Female Stated complaint: Pressure and pain on the bladder, per ems Time Seen by Provider: 02/27/24 12:46 Source: patient, family (patient's mother) and EMS Mode of arrival: EMS Limitations: no limitations History of Present Illness ED Provider: Leilani Skinner PA-C HPI narrative: Patient is a 63 year old assigned female at with a history of anemia and NSTEMI presenting to the emergency department today with suprapubic pain. Patient states that she woke up early this morning with bladder pain and pressure. Patient states that she has not been able to urinate since 0300 this morning. Patient states that she does not want a scales catheter in but she does want to be straight catheterized. Patient denies any dizziness, lightheadedness, nausea, vomiting, fever, chills, blurry vision, double vision, loss of vision, chest pain, difficulty breathing, shortness of breath, back pain, night sweats, blood in her urine or stool, syncope or a near syncopal episode, recent trauma or falls, bowel incontinence, bladder incontinence, bowel retention, bladder retention, or any other complaints at this time. Onset (ago): hour(s) Location: abdomen Severity: mild Severity scale (1-10): 3 Pain Consistency: constant Relieving factors: none Exacerbating factors: none Associated symptoms: denies other symptoms Treatments prior to arrival: none Related Data Home Medications ?Medication ?Instructions ?Recorded ?Confirmed multivitamin 1 tab PO DAILY 01/09/24 01/09/24 Previous Rx's ?Medication ?Instructions ?Recorded aspirin 81 mg chewable tablet 81 mg PO DAILY #30 tabs 10/23/23 cephalexin 500 mg tablet 500 mg PO BID #14 tabs 01/31/24 tramadol 50 mg tablet 50 mg PO TID PRN pain #15 tabs 01/31/24 cefuroxime axetil 250 mg tablet 250 mg PO BID 7 days #14 tabs 02/27/24 oxybutynin chloride 5 mg 5 mg PO DAILY #7 tabs 02/27/24 tablet,extended release 24 hr Allergies Allergy/AdvReac Type Severity Reaction Status Date / Time No Known Allergies Allergy Verified 02/27/24 12:49 [No Known Allergies*] Review of Systems Constitutional: Constitutional: Reports no additional constitutional complaints, Denies chills, Denies fever(s) and Denies night sweats Eyes: Eyes: Reports no additional eye complaints, Denies blurry vision, Denies change in vision, Denies diplopia, Denies eye discharge, Denies loss of vision and Denies eye pain ENT: Denies dizziness Cardiovascular: Cardiovascular: Reports no additional cardiovascular complaints, Denies chest pain, Denies lightheadedness, Denies Loss of Consciousness and Denies dyspnea Respiratory: Respiratory: Reports no additional respiratory complaints and Denies dyspnea Gastrointestinal: Gastrointestinal: Reports no additional gastrointestinal complaints, Reports abdominal pain, Denies melena, Denies hematochezia, Denies change in bowel habits and Denies change in stool character Genitourinary: Genitourinary: Denies hematuria, Denies urinary frequency, Reports difficulty voiding, Reports dysuria, Denies urinary incontinence, Denies urinary hesitancy and Reports urinary urgency Musculoskeletal: Musculoskeletal: Reports no additional musculoskeletal complaints, Denies numbness and Denies tingling Neurologic: Denies dizziness, Denies loss of vision, Denies numbness and Denies tingling Psychiatric: Psychiatric: Reports no additional psychiatric complaints Endocrine: Endocrine: Reports no additional endocrine complaints Hematologic/Lymphatic: Hematologic/Lymphatic: Reports no additional hematologic/lymphatic complaints Allergic/Immunologic: Allergic/Immunologic: Reports no additional allergic/immunologic complaints PMFSH Past Medical History Attestation statement: The following information was validated with the patient. (all information validated with the patient's mother) Source: old records reviewed, obtained from family (patient's mother provided additional history and confirmed the history provided by the patient.) and nursing notes reviewed Medical History Basal cell carcinoma Skin lesion of right arm Skin lesion of back Chronic constipation Generalized anxiety disorder OCD (obsessive compulsive disorder) Avoidant and restrictive food intake disorder MSSA bacteremia Sacral pressure ulcer Malnutrition Failure to thrive in adult Normocytic anemia Cachexia Closed intertrochanteric fracture of femur Anemia Surgical History History of surgical removal of skin lesion (~01/23/24) History of hip surgery H/O foot surgery Family History Family History Other No family history of coronary artery disease Social History Social History Household Members: Family Household Members Other:: mother Housing: House Do you presently have visiting nurse or other home services: No Alcohol intake: never Comment: PT put on hold due to lack of patient participation Patient Tobacco Use Status: Former Tobacco user Tobacco use type: Cigarette Advance Directives: Yes Advance Directives on File: Yes Advance Directives Date on File: 11/16/21 service: No Current occupational status: unemployed Physical Exam ED Vital Signs: Vital Signs - 24 hr 02/27/24 12:42 02/27/24 14:06 02/27/24 17:02 Temperature 98.5 F 97.7 F Pulse Rate 67 54 Respiratory Rate 18 16 20 Blood Pressure 149/64 H 144/81 H Pulse Oximetry 100 95 Oxygen Delivery Method Room Air Room Air 02/27/24 18:21 02/27/24 18:36 Temperature 98 F Pulse Rate 65 Respiratory Rate 18 18 Blood Pressure 141/76 H Pulse Oximetry 96 Oxygen Delivery Method Room Air BMI result Body Mass Index 13.7 Const General: cooperative, no acute distress, alert and awake Nutritional Appearance: well nourished Orientation/consciousness: patient oriented x3 Limitations: no limitations HENMT Head: Yes normal to inspection and Yes atraumatic Ears: hearing grossly normal bilaterally and external ears normal General nose exam: Normal external nose present, no nasal discharge noted and no epistaxis Face and sinus: Yes normal facial exam, No abrasion and No laceration Mouth: Normal oral and palatal mucosa present, no drooling and no muffled voice Eyes General: appearance normal, both eyes and all related structures Periorbital: periorbital findings normal Eyelids: Yes eyelids normal Conjunctivae: conjunctivae normal Pupils: Equal, round and reactive pupils present EOM: EOMs intact bilaterally Neck Neck: Yes normal visual inspection, Yes full ROM and Yes no lymphadenopathy Chest Chest palpation & inspection: normal inspection of the chest Resp Effort & Inspection: normal respiratory effort and able to speak in complete sentences GI Inspection: Yes normal to inspection Palpation (GI): Soft to palpation, not firm, Tenderness to palpation present (GI) suprapubicly, no guarding and not rigid Neuro General: patient oriented x3 and moves all extremities Cranial nerves: Yes Equal, round and reactive pupils present Cognition (Neuro): normal cognition Motor exam (neuro): 5/5 motor strength present throughout Sensory Exam: Normal double simultaneous stimulation for sensation Coordination: [id number] test normal Extrem General: Yes normal to inspection, Yes full ROM and Yes capillary refill normal Psych Appearance: grossly normal Mental Status: mental status grossly normal Affect: normal affect Attitude: cooperative Thought process: Normal thought process present Thought content: Normal thought content present Insight: Good insight present (Psych) Medications Administered Discontinued Medications Generic Name Dose Route Start Last Admin Trade Name Freq PRN Reason Stop Dose Admin Ceftriaxone Sodium 1 gm/ 50 mls @ 100 mls/hr 02/27/24 12:52 02/27/24 14:35 Sodium Chloride IV 02/27/24 13:21 Infused ONCE ONE Infusion Sodium Chloride 1,000 mls @ 999 mls/hr 02/27/24 14:15 02/27/24 18:23 Ns IV 02/27/24 15:15 Infused .Q1H1M ROBERTO CARLOS Infusion Morphine Sulfate 4 mg 02/27/24 12:52 02/27/24 14:06 Morphine Sulfate 4 Mg/Ml Cartridge IVPUSH 02/27/24 12:53 4 mg ONCE ONE Administration Protocol Morphine Sulfate 4 mg 02/27/24 18:13 02/27/24 18:21 Morphine Sulfate 4 Mg/Ml Cartridge IVPUSH 02/27/24 18:14 4 mg ONCE ONE Administration Protocol Ondansetron HCl 4 mg 02/27/24 12:52 02/27/24 14:05 Ondansetron Hcl 4 Mg/2 Ml Vial IVPUSH 02/27/24 12:53 4 mg ONCE ONE Administration Oxybutynin Chloride 5 mg 02/27/24 15:03 02/27/24 15:33 Oxybutynin Chloride Er 5 Mg Tab.Er.24 PO 02/27/24 15:04 5 mg ONCE ONE Administration Oxybutynin Chloride 5 mg 02/27/24 18:23 02/27/24 18:30 Oxybutynin Chloride Er 5 Mg Tab.Er.24 PO 02/27/24 18:24 5 mg ONCE ONE Administration Medical Decision Making Medical Decision Making MDM Narrative: Patient is a 63 year old assigned female at with a history of anemia and NSTEMI presenting to the emergency department today with abdominal pain and increased urinary urgency. Patient's physical exam was as noted in the physical exam portion of this note. Patient was able to urinate on her own and did not require a catheterization. Patient's blood work showed a mild hyponatremia of 130 and mildly elevated LFTs. Patient's LFTs are chronically mildly elevated. The rest of the patient's labs were unremarkable. Patient's urine showed an acute UTI. Patient's abdomen/pelvis CT showed no acute process. I explained my physical exam findings as well as all test results to the patient and the patient's mother. I answered all questions asked by the patient and the patient's mother. Patient received multiple doses of pain medication and a dose of IV antibiotics while in the department which she stated helped her symptoms significantly. I stressed the importance of the patient taking her medication as prescribed. I stressed the importance of the patient following up with her primary care provider. I stressed the importance of the patient returning to the emergency department immediately if her symptoms were to worsen or if she were to develop any dizziness, shortness of breath, difficulty breathing, chest pain, blurry vision, loss of vision, nausea, vomiting, abdominal pain, fever, chills, back pain, or any other complaints. Patient and the patient's mother verbalized agreement and understanding with this treatment plan and discharge. Differential Diagnosis Differential Diagnoses: The differential diagnosis associated with the presentation includes UTI Pyelonephritis Abdominal pain Bladder spasm Urinary retention Admission/Observation Consideration of admission/observation: Escalation of care including admission/observation considered Patient would have been admitted to the hospital had her work up had any findings where hospital admission was appropriate and her clinical presentation warranted hospital admission. Lab Data [facility] Lab Attestation statement: I reviewed the patient's lab results. My interpretation of these results are in the [facility] Rationale portion of this note. 02/27/24 13:36 02/27/24 13:36 Labs: Lab Results 02/27/24 02/27/24 Range/Units 13:20 13:36 WBC 8.4 (4.8-10.8) X10*3/uL RBC 3.80 L (4.20-5.50) X10*6/uL Hgb 8.6 L (12.0-16.0) g/dl Hct 27.5 L (37.0-47.0) % MCV 72.4 L (80.0-98.0) fL MCH 22.6 L (27.0-33.0) pg MCHC 31.3 (31.0-35.0) g/dl RDW 15.6 (11.0-16.0) % Plt Count 360 (160-400) X10*3/uL MPV 9.1 L (9.4-12.3) fL Immature Gran % (Auto) 0.2 (0.0-0.4) % Neut % (Auto) 77.4 H (45-73) % Lymph % (Auto) 15.0 L (20-40) % [place] % (Auto) 6.1 (2-11) % Eos % (Auto) 0.8 (0-4) % Baso % (Auto) 0.5 (0-2) % Lymph # (Auto) 1.3 (1.2-4.9) X10*3/uL [place] # (Auto) 0.5 (0.1-1.2) X10*3/uL Eos # (Auto) 0.1 (0.0-0.4) X10*3/uL Baso # (Auto) 0.0 (0.0-0.2) X10*3/uL Abs Immat Gran (auto) 0.02 (0.00-0.03) X10*3/uL Absolute Neuts (auto) 6.5 (2.0-8.3) x10*3/uL Absolute Nucleated RBC 0.000 (0.0-0.012) X10*3/uL Nucleated RBC % (auto) 0.0 (0.0-0.2) /100WBC Sodium 130 L (135-145) mmol/L Potassium 4.1 (3.3-5.1) mmol/L Chloride 93 L (96-108) mmol/L Carbon Dioxide 26 (22-29) mmol/L Anion Gap 15 (12-20) BUN 14 (9-16) mg/dL Creatinine 0.64 (0.5-1.4) mg/dL Estim Creat Clear Calc 52.4 Estimated GFR > 60 Random Glucose 70 (60-115) mg/dL Lactic Acid 1.6 (0.5-2.0) mmol/L Calcium 9.4 D (8.4-10.2) mg/dL Magnesium 1.6 (1.6-2.6) mg/dL Total Bilirubin 1.2 H (0.0-1.0) mg/dL AST 54 H (5-31) U/L ALT 33 H (0-31) U/L Alkaline Phosphatase 82 (39-117) U/L Total Protein 6.8 (6.5-8.0) g/dL Albumin 3.8 (3.5-5.0) g/dL Urine Color Bartholomew Urine Appearance Hazy Urine pH 6.5 (5.0-9.0) Ur Specific [place] 1.015 (1.005-1.025) Urine Protein 100 (2+) H (Neg-Trace) mg/dL Urine Glucose (UA) See Note (Negative) mg/dL Urine Ketones Negative (Negative) mg/dL Urine Blood Trace (Negative) Urine Nitrite Positive H (Negative) Ur Leukocyte Esterase Moderate (2+) H (Negative) Urine RBC 6-10 H (0-2) /HPF Urine WBC >50 (0-5) /HPF Ur Squamous Epith Cells 0-2 (0-2) /HPF Urine Bacteria 3+ (None Seen) Hyaline Casts 0-2 (0-2) /LPF Independent Interpretation I performed an independent interpretation of an: CT Scan Interpretation: My interpretation is in agreement with the radiologist's impression of this imaging study. EXAMINATION: CT ABDOMEN AND PELVIS WITHOUT CONTRAST CLINICAL INFORMATION: Abdominal pain COMPARISON: CT abdomen pelvis 10/22/2023 TECHNIQUE: Multidetector volumetric imaging was performed from the superior aspect of the liver through the pubic symphysis without intravenous contrast. Sagittal and coronal reformatted images were obtained on the technologist's workstation. This CT examination was performed using dose optimization techniques as appropriate, variously including the following: *Automated exposure control *Adjustment of mA and/or kV according to patient size (this includes techniques or standardized protocols for targeted exams where dose is matched to indication/reason for exam; i.e. extremities or head) *Use of iterative reconstruction technique DLP: 171 mGy-cm FINDINGS: The study is quite limited secondary to lack of oral contrast media, lack of intravenous contrast media and lack of any subcutaneous or retroperitoneal fat. LUNG BASES: Decreased attenuation of cardiac blood pool suggesting severe anemia LIVER, GALLBLADDER, AND BILIARY TREE: The liver is normal in size, shape, and attenuation. No focal hepatic lesion or biliary ductal dilatation is present. The gallbladder is unremarkable with no evidence of radiopaque gallstones, gallbladder wall thickening, or obvious pericholecystic inflammatory changes. PANCREAS: Unremarkable. SPLEEN: Unremarkable. ADRENAL GLANDS: Unremarkable. KIDNEYS AND URETERS: The kidneys are normal in size, shape, and attenuation. No hydronephrosis, hydroureter, or calculi seen. No perinephric stranding. BLADDER: Unremarkable. GASTROINTESTINAL TRACT: Very limited evaluation. Moderate stool burden throughout the colon. No evidence of bowel obstruction. The appendix appears normal. ABDOMINAL WALL: No significant hernia is appreciated. LYMPH NODES: No retroperitoneal lymphadenopathy but evaluation is limited VASCULAR: Severe calcific atherosclerotic changes are present in the aorta and iliofemoral vessels. There is no evidence of an abdominal aortic aneurysm. PELVIC VISCERA: Unremarkable. The uterus is not seen with certainty but could be atrophic. An abnormal adnexal mass is not identified. OSSEOUS STRUCTURES: Intramedullary toni and screw left femur. Mild degenerative changes seen throughout the spine. CT/CT abdomen pelvis wo IV con IMPRESSION: 1. Very limited study secondary to cachexia, lack of oral and intravenous contrast media. 2. No acute intra-abdominal process is seen. 3. Incidental note made of severe anemia, severe atherosclerotic changes and degenerative changes in the spine. Fleischner guidelines were followed. Dictated By: Amilcar Lopez MD Signed By: Electronically signed by Amilcar Lopez MD 02/27/24 3579 Radiology Impression Discussion of test interpretation with radiology: I have reviewed the radiologist's reading. Independent Historian Clinical information obtained from an independent historian. History obtained from or confirmed by: Parent (patient's mother provided additional history and confirmed the history provided by the patient) and EMS (EMS provided additional history and confirmed the history provided by the patient) Prescription Management I considered prescription management with: Pain Medication (patient prescribed an anti-spasmatic medicaiton ) and Antibiotic (patient prescribed an antibiotic for UTI) Critical Care Time Critical Care Time Critical Care Time: Yes Total Critical Care Time: 66 Attestation: I spent 66 minutes of Critical Care Time with this patient. This does not include time spent on separately reported billable procedures. Discharge Plan Discharge Clinical Impression: Urinary tract infection, Bladder spasms Patient Disposition: Home, Self-Care Instructions: Urinary Tract Infection in Women (DC) Additional Instructions: Follow up with your primary care provider. Return to the emergency department immediately if your symptoms worsen or if you develop any dizziness, shortness of breath, difficulty breathing, chest pain, blurry vision, loss of vision, nausea, vomiting, abdominal pain, fever, chills, back pain, or any other complaints. Prescriptions: New cefuroxime axetil 250 mg tablet 250 mg PO BID 7 Days Qty: 14 0RF oxybutynin chloride 5 mg tablet extended release 24hr 5 mg PO DAILY Qty: 7 0RF No Action tramadol 50 mg tablet 50 mg PO TID PRN (Reason: pain) Qty: 15 0RF cephalexin 500 mg tablet 500 mg PO BID Qty: 14 0RF aspirin 81 mg Tablet,Chewable 81 mg PO DAILY Qty: 30 0RF multivitamin Tablet 1 tab PO DAILY Referrals: Adin Bob MD [Primary Care Provider] - Interventions: ED Discharge Assessment Last Done: 02/27/24 18:36 Discharge Date/Time: 02/27/24 18:37 Print Language: Swedish
[2024-02-27 13:46] LABS: MANUAL DIFF FLAG NO
[2024-02-27 13:47] LABS: Basophils Percent Auto 0.5 % (0-2); Eosinophils Absolute Auto 0.1 X10*3/uL (0.0-0.4); Eosinophils Percent Auto 0.8 % (0-4); Hematocrit 27.5 % (37.0-47.0); Hemoglobin 8.6 g/dl (12.0-16.0); Imm Gran Abs Auto 0.02 X10*3/uL (0.00-0.03); Imm Gran Pct Auto 0.2 % (0.0-0.4); Lymphocytes Absolute Auto 1.3 X10*3/uL (1.2-4.9); Mean Corpuscular HGB Conc 31.3 g/dl (31.0-35.0); Mean Corpuscular Hemoglobin 22.6 pg (27.0-33.0); Mean Corpuscular Volume 72.4 fL (80.0-98.0); Mean Platelet Volume 9.1 fL (9.4-12.3); Monocytes Absolute Auto 0.5 X10*3/uL (0.1-1.2); Monocytes Percent Auto 6.1 % (2-11); Neutrophils Absolute Auto 6.5 x10*3/uL (2.0-8.3); Neutrophils Percent Auto 77.4 % (45-73); Platelet Count 360 X10*3/uL (160-400); Red Cell Distribution Width 15.6 % (11.0-16.0); White Blood Count 8.4 X10*3/uL (4.8-10.8)
[2024-02-27 13:47] LABS: Appearance Urine Hazy; Color Urine Orange; Leukocyte Esterase Urine Moderate (2+) (Negative); Nitrite Urine Positive (Negative); PH 6.5 (5.0-9.0); Specific Gravity - Urine 1.015 (1.005-1.025); UMIC TRIGGER UACC YES; Urine Blood Trace (Negative); Urine Ketones Negative (Negative); Urine Protein 100 (2+) mg/dL (Neg-Trace)
[2024-02-27 13:58] LABS: Bacteria Urine 3+ (None Seen); Hyaline Casts Urine 0-2 /LPF (0-2); Squamous Epithelial Cell Urine 0-2 /HPF (0-2); UACC Culture Trigger YES; WBC Urine >50 /HPF (0-5)
[2024-02-27 13:58] LABS: Lactic Acid 1.6 mmol/L (0.5-2.0)
[2024-02-27 14:01] LABS: Alanine Aminotransferase 33 U/L (0-31); Albumin Level 3.8 g/dL (3.5-5.0); Alkaline Phosphatase 82 U/L (39-117); Anion Gap 15 (12-20); Aspartate Amino Transferase 54 U/L (5-31); Bilirubin Total 1.2 mg/dL (0.0-1.0); Blood Urea Nitrogen 14 mg/dL (9-16); Calcium 9.4 mg/dL (8.4-10.2); Carbon Dioxide 26 mmol/L (22-29); Chloride 93 mmol/L (96-108); Creatinine Clr Calc Pharmacy 52.4; Estimated Glomerular Filt Rate > 60; Glucose Random 70 mg/dL (60-115); Magnesium 1.6 mg/dL (1.6-2.6); Potassium 4.1 mmol/L (3.3-5.1); Sodium 130 mmol/L (135-145); Total Protein 6.8 g/dL (6.5-8.0)
[2024-02-27] MEDS: cefTRIAXone sodium 1 GM in 0.9 % Sodium Chloride 50 ML IV (14:05)
[2024-02-27] MEDS: ondansetron HCL 4 MG/2 ML VIAL IVPUSH (14:05)
[2024-02-27 14:06] VITALS: RESP 16
[2024-02-27] MEDS: Morphine Sulfate 4 MG/ML CARTRIDGE IVPUSH ×2 (14:06→18:21)
[2024-02-27] MEDS: 0.9 % Sodium Chloride 1,000 ML 999 ML IV (14:44)
[2024-02-27] MEDS: oxyBUTYnin chloride ER 5 MG TAB.ER.24 PO ×2 (15:33→18:30)
[2024-02-27 17:02] VITALS: BP 144/81; PULSE 54; RESP 20; TEMP 36.5; O2SAT 95
[2024-02-27 18:21] VITALS: RESP 18
[2024-02-27 18:36] VITALS: BP 141/76; PULSE 65; RESP 18; TEMP 36.6; O2SAT 96
== END 2024-02-27 18:37 | disposition home or self-care (01) ==
PROVIDERS: Physician Assistant Medical; Emergency Provider Emergency Medicine; PCP Internal Medicine
DX: N39.0 Urinary tract infection, site not specified (principal); N32.89 Other specified disorders of bladder; R39.89 Other symptoms and signs involving the genitourinary system; R10.9 Unspecified abdominal pain; R39.15 Urgency of urination; E87.1 Hypo-osmolality and hyponatremia
CPT/HCPCS: 36415; 74176; 80053; 81001; 83605; 83735; 85025; 87040; 87086; 87088; 87186; 96361; 96365; 96375; 96376; 99284; 99285; J0696; J2270; J2405

== ENCOUNTER 2024-03-01 11:58 | Emergency (ER) | payer MEDICAID, SELFPAY ==
[2024-03-01 12:19] VITALS: BP 152/80; PULSE 69; RESP 18; TEMP 36.4; O2SAT 100; BMI 14.2
--- NOTE | 2024-03-01 12:22 | ED_ITS ---
HPI - General Adult General Chief complaint: Abdominal Pain Stated complaint: bladder pain Time Seen by Provider: 03/01/24 13:47 Source: patient Mode of arrival: ambulatory History of Present Illness ED Provider: Dr Tran HPI narrative: 63-year-old female who comes in in excruciating pain in the lower abdomen was diagnosed with a urinary tract infection on Sunday. Related Data Home Medications ?Medication ?Instructions ?Recorded ?Confirmed multivitamin 1 tab PO DAILY 01/09/24 01/09/24 Previous Rx's ?Medication ?Instructions ?Recorded aspirin 81 mg chewable tablet 81 mg PO DAILY #30 tabs 10/23/23 tramadol 50 mg tablet 50 mg PO TID PRN pain #15 tabs 01/31/24 oxybutynin chloride 5 mg 5 mg PO DAILY #7 tabs 02/27/24 tablet,extended release 24 hr cefdinir 300 mg capsule 300 mg PO BID 7 days #14 caps 03/01/24 oxybutynin chloride 5 mg 5 mg PO DAILY #4 tabs 03/01/24 tablet,extended release 24 hr phenazopyridine 200 mg tablet 200 mg PO TID 6 doses #6 tabs 03/01/24 (Pyridium) Allergies Allergy/AdvReac Type Severity Reaction Status Date / Time No Known Allergies Allergy Verified 03/01/24 12:23 [No Known Allergies*] Review of Systems 2 Review of Systems: Pertinent positives and negatives as stated in [facility] Past Medical History Source: nursing notes reviewed Medical History Basal cell carcinoma Skin lesion of right arm Skin lesion of back Chronic constipation Generalized anxiety disorder OCD (obsessive compulsive disorder) Avoidant and restrictive food intake disorder MSSA bacteremia Sacral pressure ulcer Malnutrition Failure to thrive in adult Normocytic anemia Cachexia Closed intertrochanteric fracture of femur Anemia Surgical History History of surgical removal of skin lesion (~01/23/24) History of hip surgery H/O foot surgery Family History Family History Other No family history of coronary artery disease Social History Social History Household Members: Family Household Members Other:: mother Housing: House Do you presently have visiting nurse or other home services: No Alcohol intake: never Comment: PT put on hold due to lack of patient participation Patient Tobacco Use Status: Former Tobacco user Tobacco use type: Cigarette Advance Directives: Yes Advance Directives on File: Yes Advance Directives Date on File: 11/16/21 service: No Current occupational status: unemployed Physical Exam ED Vital Signs: Vital Signs - 24 hr 03/01/24 12:19 03/01/24 15:18 Temperature 97.6 F 97.7 F Pulse Rate 69 69 Respiratory Rate 18 18 Blood Pressure 152/80 H 154/78 H Pulse Oximetry 100 98 Oxygen Delivery Method Room Air Room Air BMI result Body Mass Index 14.2 VITAL SIGNS: Reviewed. GENERAL: Well developed, well nourished, in moderate distress. HEAD: Normocephalic/atraumatic EYES: PERRLA, EOMI LUNGS: Normal breath sounds. No adventitious sounds or accessory muscle use. SpO2<98> CARDIOVASCULAR: Regular rate and rhythm without noted murmurs ABDOMEN: Soft, non-tender, non-distended with bowel sounds. MUSCULOSKELETAL: No tenderness, deformities, or effusions noted on gross inspection. EXTREMITIES: No cyanosis, clubbing or edema. SKIN: Inspection of the skin reveals no rashes NEUROLOGIC: Alert and oriented x 4. Strength and sensation to light touch were grossly intact x 4. Course Course Course Narrative: This is an RME: Additional HPI, ROS, PE not included below will be deferred to primary provider. RME assessment and note performed by: Kasey Nguyen PA-C This is a 63-year-old female with a history of anemia and NSTEMI, who presents emergency department with complaints of suprapubic pain. She was seen here on February 26 and was diagnosed with a urinary tract infection, had a negative CT scan at that time, she has been taking her antibiotic as well as oxybutynin which has provided her without much relief. Patient states that her pain is excruciating. Notified charge nurse, will attempt to bring patient back as soon as possible. She just took Tylenol as well as her antibiotics, azo, without any relief. Vital signs stable. Plan: Labs, UA, further ER evaluation needed. 03/01/2024 1341 - patient has approached desk multiple times, I approached charge nurse to have patient be brought back. Bladder scan was obtained out in triage, revealing bladder of greater than 560. Ochoa catheter ordered, patient brought back to the main emergency department. Medications Administered Discontinued Medications Generic Name Dose Route Start Last Admin Trade Name Peter PRN Reason Stop Dose Admin Cefuroxime Axetil 500 mg 03/01/24 15:26 03/01/24 15:35 Cefuroxime Axetil 500 Mg Tablet PO 03/01/24 15:27 500 mg ONCE ONE Administration Oxybutynin Chloride 5 mg 03/01/24 15:26 03/01/24 15:36 Oxybutynin Chloride Er 5 Mg Tab.Er.24 PO 03/01/24 15:27 5 mg ONCE ONE Administration Medical Decision Making Medical Decision Making [facility] Narrative: 63-year-old female with history and clinical presentation, DDX: Acute urinary retention, bladder spasm, ineffectively treated urinary tract infection. I reviewed all investigations and hematologic indices are chronically stable without leukocytosis and microcytic anemia and no thrombocytopenia. Chemistry indices demonstrate a mild dehydration without HUGH, patient noted to have a low magnesium and was directed to pursue dietary supplementation. Liver enzymes have chronically detectable transaminases. Urinalysis shows some improvement, but bladder scan demonstrated over 500 cc within the bladder and a Ochoa catheter was placed and left in position. Patient received a change in antibiotics, antispasmodic as well as Pyridium and will be discharged with Ochoa catheter in place. My interpretation is that patient developed acute urinary retention secondary to underlying urinary tract infection. Will change antibiotics although microbiology demonstrates it should have been sensitive to the antibiotic that she was discharged on. She is feeling much improved. And was provided with a referral to follow-up with urology. Differential Diagnosis Differential Diagnoses: The differential diagnosis associated with the presentation includes Please see the discussion above Admission/Observation Consideration of admission/observation: Escalation of care including admission/observation considered Please see the discussion above Lab Data [facility] Lab Attestation statement: I reviewed the patient's lab results. Please see the discussion above 03/01/24 14:05 03/01/24 14:05 Labs: Lab Results 03/01/24 Range/Units 14:05 WBC 8.4 (4.8-10.8) X10*3/uL RBC 3.74 L (4.20-5.50) X10*6/uL Hgb 8.6 L (12.0-16.0) g/dl Hct 27.0 L (37.0-47.0) % MCV 72.2 L (80.0-98.0) fL MCH 23.0 L (27.0-33.0) pg MCHC 31.9 (31.0-35.0) g/dl RDW 15.7 (11.0-16.0) % Plt Count 337 (160-400) X10*3/uL MPV 8.7 L (9.4-12.3) fL Immature Gran % (Auto) 0.4 (0.0-0.4) % Neut % (Auto) 70.4 (45-73) % Lymph % (Auto) 18.4 L (20-40) % [place] % (Auto) 8.4 (2-11) % Eos % (Auto) 1.7 (0-4) % Baso % (Auto) 0.7 (0-2) % Lymph # (Auto) 1.5 (1.2-4.9) X10*3/uL [place] # (Auto) 0.7 (0.1-1.2) X10*3/uL Eos # (Auto) 0.1 (0.0-0.4) X10*3/uL Baso # (Auto) 0.1 (0.0-0.2) X10*3/uL Abs Immat Gran (auto) 0.03 (0.00-0.03) X10*3/uL Absolute Neuts (auto) 5.9 (2.0-8.3) x10*3/uL Absolute Nucleated RBC 0.000 (0.0-0.012) X10*3/uL Nucleated RBC % (auto) 0.0 (0.0-0.2) /100WBC Sodium 131 L (135-145) mmol/L Potassium 4.2 (3.3-5.1) mmol/L Chloride 92 L (96-108) mmol/L Carbon Dioxide 29 (22-29) mmol/L Anion Gap 14 (12-20) BUN 11 (9-16) mg/dL Creatinine 0.65 (0.5-1.4) mg/dL Estim Creat Clear Calc 50.1 Estimated GFR > 60 Random Glucose 80 (60-115) mg/dL Lactic Acid 2.0 (0.5-2.0) mmol/L Calcium 9.5 (8.4-10.2) mg/dL Magnesium 1.5 L (1.6-2.6) mg/dL Total Bilirubin 0.9 (0.0-1.0) mg/dL Direct Bilirubin 0.3 (0.0-0.5) mg/dL AST 101 H (5-31) U/L ALT 47 H (0-31) U/L Alkaline Phosphatase 86 (39-117) U/L Total Protein 6.8 (6.5-8.0) g/dL Albumin 3.8 (3.5-5.0) g/dL Lipase 24 (8-78) U/L Urine Color [place] Urine Appearance Clear Urine pH 6.5 (5.0-9.0) Ur Specific [place] 1.010 (1.005-1.025) Urine Protein See Note (Neg-Trace) mg/dL Urine Glucose (UA) See Note (Negative) mg/dL Urine Ketones Negative (Negative) mg/dL Urine Blood See Note (Negative) Urine Nitrite See Note (Negative) Ur Leukocyte Esterase See Note (Negative) Urine RBC 11-20 H (0-2) /HPF Urine WBC 0-5 (0-5) /HPF Ur Squamous Epith Cells 0-2 (0-2) /HPF Urine Bacteria None Seen (None Seen) Hyaline Casts 0-2 (0-2) /LPF External Record Review External record reviewed: Outpatient record, Prior outpatient labs and Prior outpatient radiology Critical Care Time Critical Care Time Critical Care Time: Yes Total Critical Care Time: 45 Attestation: I personally attest to this time spent taking care of the patient. Discharge Plan Discharge Clinical Impression: Acute urinary retention, Urinary tract infection, Bladder spasm, Difficult Ochoa catheter placement Patient Disposition: Home, Self-Care Instructions: Ochoa Catheter Placement and Care (ED), Acute Urinary Retention in Women (ED), Urinary Tract Infection in Older Adults (ED) Additional Instructions: 1. Resume all home medications as prescribed EXCEPT cefuroxime axetil, this should be discontinued, you can continue with the oxybutynin. 2. Your antibiotics have been switched to cefdinir which you will take for 1 week and Pyridium which will also help with the pain that you are experiencing. 3. You will keep the Ochoa catheter until re-evaluated by Urology, please find the referral below and call the office on Sunday to set up an appointment for re-evaluation. 4. Please follow-up with your primary care doctor next week. Return to the ER for any worsening symptoms. Prescriptions: New cefdinir 300 mg capsule 300 mg PO BID 7 Days Qty: 14 0RF phenazopyridine [Pyridium] 200 mg tablet 200 mg PO TID Qty: 6 0RF oxybutynin chloride 5 mg tablet extended release 24hr 5 mg PO DAILY Qty: 4 0RF Discontinued cephalexin 500 mg tablet 500 mg PO BID Qty: 14 0RF cefuroxime axetil 250 mg tablet 250 mg PO BID 7 Days Qty: 14 0RF No Action tramadol 50 mg tablet 50 mg PO TID PRN (Reason: pain) Qty: 15 0RF aspirin 81 mg Tablet,Chewable 81 mg PO DAILY Qty: 30 0RF oxybutynin chloride 5 mg tablet extended release 24hr 5 mg PO DAILY Qty: 7 0RF multivitamin Tablet 1 tab PO DAILY Referrals: Alex Campbell MD [Physician] - Adin Bob MD [Primary Care Provider] - Print Language: Kiswahili
[2024-03-01 14:10] LABS: MANUAL DIFF FLAG NO
[2024-03-01 14:13] LABS: Basophils Absolute Auto 0.1 X10*3/uL (0.0-0.2); Basophils Percent Auto 0.7 % (0-2); Eosinophils Absolute Auto 0.1 X10*3/uL (0.0-0.4); Eosinophils Percent Auto 1.7 % (0-4); Hemoglobin 8.6 g/dl (12.0-16.0); Imm Gran Abs Auto 0.03 X10*3/uL (0.00-0.03); Imm Gran Pct Auto 0.4 % (0.0-0.4); Lymphocytes Absolute Auto 1.5 X10*3/uL (1.2-4.9); Lymphocytes Percent Auto 18.4 % (20-40); Mean Corpuscular HGB Conc 31.9 g/dl (31.0-35.0); Mean Corpuscular Volume 72.2 fL (80.0-98.0); Mean Platelet Volume 8.7 fL (9.4-12.3); Monocytes Absolute Auto 0.7 X10*3/uL (0.1-1.2); Monocytes Percent Auto 8.4 % (2-11); Neutrophils Absolute Auto 5.9 x10*3/uL (2.0-8.3); Neutrophils Percent Auto 70.4 % (45-73); Platelet Count 337 X10*3/uL (160-400); Red Blood Count 3.74 X10*6/uL (4.20-5.50); Red Cell Distribution Width 15.7 % (11.0-16.0); White Blood Count 8.4 X10*3/uL (4.8-10.8)
[2024-03-01 14:14] LABS: Appearance Urine Clear; Color Urine Orange; PH 6.5 (5.0-9.0); UMIC TRIGGER UACC YES; Urine Ketones Negative (Negative)
[2024-03-01 14:21] LABS: Bacteria Urine None Seen (None Seen); Hyaline Casts Urine 0-2 /LPF (0-2); Squamous Epithelial Cell Urine 0-2 /HPF (0-2); WBC Urine 0-5 /HPF (0-5)
[2024-03-01 14:27] LABS: Alanine Aminotransferase 47 U/L (0-31); Albumin Level 3.8 g/dL (3.5-5.0); Alkaline Phosphatase 86 U/L (39-117); Anion Gap 14 (12-20); Aspartate Amino Transferase 101 U/L (5-31); Bilirubin Direct 0.3 mg/dL (0.0-0.5); Bilirubin Total 0.9 mg/dL (0.0-1.0); Blood Urea Nitrogen 11 mg/dL (9-16); Calcium 9.5 mg/dL (8.4-10.2); Carbon Dioxide 29 mmol/L (22-29); Chloride 92 mmol/L (96-108); Creatinine Clr Calc Pharmacy 50.1; Estimated Glomerular Filt Rate > 60; Glucose Random 80 mg/dL (60-115); Lipase 24 U/L (8-78); Magnesium 1.5 mg/dL (1.6-2.6); Potassium 4.2 mmol/L (3.3-5.1); Sodium 131 mmol/L (135-145); Total Protein 6.8 g/dL (6.5-8.0)
[2024-03-01 15:18] VITALS: BP 154/78; PULSE 69; RESP 18; TEMP 36.5; O2SAT 98
[2024-03-01] MEDS: cefuroxime axetiL 500 MG TABLET PO (15:35)
[2024-03-01] MEDS: oxyBUTYnin chloride ER 5 MG TAB.ER.24 PO (15:36)
[2024-03-01 16:22] VITALS: BP 154/78; PULSE 69; RESP 18; TEMP 36.5; O2SAT 98
== END 2024-03-01 16:23 | disposition home or self-care (01) ==
PROVIDERS: Physician Assistant Medical; Emergency Provider Student in an Organized Health Care Education/Training Program; PCP Internal Medicine
DX: N39.0 Urinary tract infection, site not specified (principal); R33.9 Retention of urine, unspecified; N32.89 Other specified disorders of bladder; R10.30 Lower abdominal pain, unspecified; F17.210 Nicotine dependence, cigarettes, uncomplicated
CPT/HCPCS: 36415; 51702; 51798; 80048; 80076; 81001; 83605; 83690; 83735; 85025; 87040; 99283; 99284

== ENCOUNTER → 2024-03-04 14:27 | Outpatient (BNVA) | payer MEDICAID, SELFPAY | PROVIDERS: PCP Internal Medicine; Visit Provider Urology ==

== ENCOUNTER 2024-03-14 08:08 | Outpatient (AMB) | payer MEDICAID, SELFPAY ==
--- NOTE | 2024-03-14 08:13 | A.OFFVIS_ITS ---
Intake Visit Reasons: VT/acute urinary retention/UTI Intake Note: NEW Patient presents today to established treatment for Voiding Trial, Acute Urinary Retention and UTI: Meds- Oxybutynin & Pyridium Allergies to Antibiotic- No Known Allergies Blood Thinner- Aspirin Associate Director Qa Required: No Accompanied by: Self / Same As Patient Allergies No Known Allergies [No Known Allergies*] Allergy (Verified 03/14/24 08:25) Medication List - Last Reconciled 03/14/24 by Angelica Ramos MD aspirin 81 mg PO DAILY levofloxacin 250 mg PO DAILY multivitamin 1 tab PO DAILY oxybutynin chloride ER 5 mg PO DAILY phenazopyridine (Pyridium) 200 mg PO TID 6 doses tramadol 50 mg PO TID PRN HPI Comments Details: Karen is a 63-year-old female who is scheduled for voiding trial today. The patient appears malnourished. The patient was in the emergency room on 02/27/2024 with irritative and obstructive voiding symptoms. CT abdomen and pelvis without IV contrast no acute abdominal process. Urine culture came back Enterococcus. The patient was sent home with oxybutynin and antibiotics she returned on 03/01 unable to urinate, bladder scan noted 500 mL and a Ochoa catheter was placed. Blood cultures were done on 03/01 which were no growth. The patient states she does not want the Ochoa removed today on a Sunday because of the weekend. She prefers to come next week Sunday in the morning for voiding trial. [facility] Medical History Basal cell carcinoma Skin lesion of right arm Skin lesion of back Chronic constipation Generalized anxiety disorder OCD (obsessive compulsive disorder) Avoidant and restrictive food intake disorder MSSA bacteremia Sacral pressure ulcer Malnutrition Failure to thrive in adult Normocytic anemia Cachexia Closed intertrochanteric fracture of femur Anemia Surgical History History of surgical removal of skin lesion (~01/23/24) History of hip surgery H/O foot surgery Family History Other No family history of coronary artery disease Social History Household Members: Family Household Members Other:: mother Housing: House Do you presently have visiting nurse or other home services: No Alcohol intake: never Comment: PT put on hold due to lack of patient participation Patient Tobacco Use Status: Former Tobacco user Tobacco use type: Cigarette Advance Directives Date on File: 11/16/21 service: No Current occupational status: unemployed Review of Systems Const All systems reviewed & are unremarkable except as noted in HPI and below Reports no additional complaints Eyes Reports no additional complaints ENT Reports no additional complaints Card Reports no additional complaints Resp Reports no additional complaints GI Reports no additional complaints Reports as per HPI Musc Reports no additional complaints Skin/Breast Reports system reviewed and no additional complaints, except as documented Neuro Reports no additional complaints Psych Reports no additional complaints Endo Reports no additional complaints Dangelo/Lymph Reports no additional complaints Aller/Immun Reports no additional complaints Physical Exam Const General: cooperative and no acute distress Nutritional Appearance: cachectic and malnourished Orientation/consciousness: patient oriented x3 HEENT Head: Yes normal to inspection, Yes normocephalic and Yes atraumatic Eyes Conjunctivae: conjunctivae normal Neck Neck: Yes normal visual inspection and Yes trachea midline Chest Chest palpation & inspection: normal inspection of the chest Resp Effort & Inspection: normal respiratory effort Cardio Jugular venous distension: no JVD GI Inspection: Yes normal to inspection Palpation (GI): Soft to palpation Neuro General: patient oriented x3 Extrem General: No edema Psych Appearance: grossly normal Results Reviewed Results Reviewed: Date of Service: 02/27/24 EXAMINATION: CT ABDOMEN AND PELVIS WITHOUT CONTRAST CLINICAL INFORMATION: Abdominal pain COMPARISON: CT abdomen pelvis 10/22/2023 TECHNIQUE: Multidetector volumetric imaging was performed from the superior aspect of the liver through the pubic symphysis without intravenous contrast. Sagittal and coronal reformatted images were obtained on the technologist's workstation. This CT examination was performed using dose optimization techniques as appropriate, variously including the following: *Automated exposure control *Adjustment of mA and/or kV according to patient size (this includes techniques or standardized protocols for targeted exams where dose is matched to indication/reason for exam; i.e. extremities or head) *Use of iterative reconstruction technique DLP: 171 mGy-cm FINDINGS: The study is quite limited secondary to lack of oral contrast media, lack of intravenous contrast media and lack of any subcutaneous or retroperitoneal fat. LUNG BASES: Decreased attenuation of cardiac blood pool suggesting severe anemia LIVER, GALLBLADDER, AND BILIARY TREE: The liver is normal in size, shape, and attenuation. No focal hepatic lesion or biliary ductal dilatation is present. The gallbladder is unremarkable with no evidence of radiopaque gallstones, gallbladder wall thickening, or obvious pericholecystic inflammatory changes. PANCREAS: Unremarkable. SPLEEN: Unremarkable. ADRENAL GLANDS: Unremarkable. KIDNEYS AND URETERS: The kidneys are normal in size, shape, and attenuation. No hydronephrosis, hydroureter, or calculi seen. No perinephric stranding. BLADDER: Unremarkable. GASTROINTESTINAL TRACT: Very limited evaluation. Moderate stool burden throughout the colon. No evidence of bowel obstruction. The appendix appears normal. ABDOMINAL WALL: No significant hernia is appreciated. LYMPH NODES: No retroperitoneal lymphadenopathy but evaluation is limited VASCULAR: Severe calcific atherosclerotic changes are present in the aorta and iliofemoral vessels. There is no evidence of an abdominal aortic aneurysm. PELVIC VISCERA: Unremarkable. The uterus is not seen with certainty but could be atrophic. An abnormal adnexal mass is not identified. OSSEOUS STRUCTURES: Intramedullary toni and screw left femur. Mild degenerative changes seen throughout the spine. IMPRESSION: 1. Very limited study secondary to cachexia, lack of oral and intravenous contrast media. 2. No acute intra-abdominal process is seen. 3. Incidental note made of severe anemia, severe atherosclerotic changes and degenerative changes in the spine. Assessment & Plan Assessment & Plan (1) Urinary retention: Code(s): R33.9 - Retention of urine, unspecified Category: Medical (2) Urinary tract infection: Code(s): N39.0 - Urinary tract infection, site not specified Category: Medical Plan Follow-up on Sunday for voiding trial. Levaquin 250 mg x5 days, stop oxybutynin 2 days prior to trial. Medications: New levofloxacin take with a meal at dinner daily 250 mg PO DAILY 5 tabs 0RF Patient Instructions: The patient had an opportunity to ask questions regarding treatment plan. The patient expressed understanding and agreement with the above treatment plan. The patient is aware they should contact our office by phone for worsening of their current condition or the appearance of new symptoms. Compliance is encouraged with any medications and followup testing that is ordered. It is a privilege to be allowed the opportunity to participate in the urologic care of your patient. If you have any questions or concerns regarding treatment for the above conditions please do not hesitate to contact me. The office telephone contact is [phone]. This note is constructed in part using voice recognition software. While every effort has been made to ensure accuracy utility specialist errors may have been included. Yours sincerely, Angelica Ramos MD Coding Level of Care Code New Pt Level 4 (32774) Diagnoses Urinary retention R33.9 Urinary tract infection N39.0
== END 2024-03-14 08:46 | disposition home or self-care (01) ==
PROVIDERS: PCP Internal Medicine; Visit Provider Urology
DX: R33.9 Retention of urine, unspecified (principal); N39.0 Urinary tract infection, site not specified
CPT/HCPCS: 99204

== ENCOUNTER → 2024-03-14 08:08 | Outpatient (BNVA) | payer MEDICAID, SELFPAY | PROVIDERS: PCP Internal Medicine; Visit Provider Urology | DX: R33.9 Retention of urine, unspecified (principal); N39.0 Urinary tract infection, site not specified | CPT/HCPCS: 99202 ==

== ENCOUNTER → 2024-03-18 08:25 | Outpatient (BNVA) | payer MEDICAID, SELFPAY | PROVIDERS: PCP Internal Medicine; Visit Provider Urology | DX: R33.9 Retention of urine, unspecified (principal) | CPT/HCPCS: 51700; 51798 ==

== ENCOUNTER 2024-04-07 09:36 | Outpatient (REF) | payer MEDICAID, SELFPAY ==
[2024-04-07 11:41] LABS: MANUAL DIFF FLAG NO
[2024-04-07 11:53] LABS: Basophils Absolute Auto 0.1 X10*3/uL (0.0-0.2); Basophils Percent Auto 0.9 % (0-2); Eosinophils Absolute Auto 0.1 X10*3/uL (0.0-0.4); Eosinophils Percent Auto 1.5 % (0-4); Hematocrit 28.6 % (37.0-47.0); Hemoglobin 8.5 g/dl (12.0-16.0); Imm Gran Abs Auto 0.03 X10*3/uL (0.00-0.03); Imm Gran Pct Auto 0.5 % (0.0-0.4); Lymphocytes Absolute Auto 1.3 X10*3/uL (1.2-4.9); Lymphocytes Percent Auto 19.3 % (20-40); Mean Corpuscular HGB Conc 29.7 g/dl (31.0-35.0); Mean Corpuscular Hemoglobin 21.1 pg (27.0-33.0); Mean Corpuscular Volume 71.1 fL (80.0-98.0); Mean Platelet Volume 8.7 fL (9.4-12.3); Monocytes Absolute Auto 0.6 X10*3/uL (0.1-1.2); Monocytes Percent Auto 9.5 % (2-11); Neutrophils Absolute Auto 4.5 x10*3/uL (2.0-8.3); Neutrophils Percent Auto 68.3 % (45-73); Platelet Count 404 X10*3/uL (160-400); Red Blood Count 4.02 X10*6/uL (4.20-5.50); Red Cell Distribution Width 20.4 % (11.0-16.0); White Blood Count 6.6 X10*3/uL (4.8-10.8)
[2024-04-07 12:39] LABS: Anion Gap 16 (12-20); Blood Urea Nitrogen 10 mg/dL (9-16); Calcium 10.2 mg/dL (8.4-10.2); Carbon Dioxide 30 mmol/L (22-29); Chloride 98 mmol/L (96-108); Estimated Glomerular Filt Rate > 60; Glucose Fasting 71 mg/dL (60-99); Iron 319 mcg/dL (30-160); Percent Iron Saturation 73 % (15-50); Potassium 4.6 mmol/L (3.3-5.1); Sodium 139 mmol/L (135-145); Total Iron Binding Capacity 437 mcg/dL (228-428); Unsaturated Iron Binding 118 ug/dL
[2024-04-07 12:48] LABS: Ferritin 35 ng/mL (10-250)
[2024-04-07 12:57] LABS: Folate 14.9 ng/mL (> or = 4.0)
== END 2024-04-07 09:37 | disposition home or self-care (01) ==
LOC: HO.HMGCLDS 09:36
PROVIDERS: PCP Internal Medicine; Visit Provider Internal Medicine
DX: D64.9 Anemia, unspecified (principal); R53.83 Other fatigue; E87.1 Hypo-osmolality and hyponatremia
CPT/HCPCS: 36415; 80048; 82728; 82746; 83540; 85025

== ENCOUNTER 2024-04-15 09:55 | Outpatient (REF) | payer MEDICAID, SELFPAY ==
[2024-04-15 12:58] LABS: MANUAL DIFF FLAG NO
[2024-04-15 13:06] LABS: Basophils Absolute Auto 0.1 X10*3/uL (0.0-0.2); Basophils Percent Auto 0.8 % (0-2); Eosinophils Absolute Auto 0.1 X10*3/uL (0.0-0.4); Eosinophils Percent Auto 1.5 % (0-4); Hematocrit 30.7 % (37.0-47.0); Hemoglobin 9.1 g/dl (12.0-16.0); Imm Gran Abs Auto 0.02 X10*3/uL (0.00-0.03); Imm Gran Pct Auto 0.3 % (0.0-0.4); Lymphocytes Absolute Auto 1.3 X10*3/uL (1.2-4.9); Lymphocytes Percent Auto 16.6 % (20-40); Mean Corpuscular HGB Conc 29.6 g/dl (31.0-35.0); Mean Corpuscular Hemoglobin 22.3 pg (27.0-33.0); Mean Corpuscular Volume 75.2 fL (80.0-98.0); Mean Platelet Volume 9.2 fL (9.4-12.3); Monocytes Absolute Auto 0.7 X10*3/uL (0.1-1.2); Monocytes Percent Auto 8.5 % (2-11); Neutrophils Absolute Auto 5.7 x10*3/uL (2.0-8.3); Neutrophils Percent Auto 72.3 % (45-73); Platelet Count 410 X10*3/uL (160-400); Red Blood Count 4.08 X10*6/uL (4.20-5.50); Red Cell Distribution Width 28.2 % (11.0-16.0); White Blood Count 7.9 X10*3/uL (4.8-10.8)
[2024-04-15 13:23] LABS: Anion Gap 10 (12-20); Blood Urea Nitrogen 7 mg/dL (9-16); Calcium 9.3 mg/dL (8.4-10.2); Carbon Dioxide 31 mmol/L (22-29); Chloride 99 mmol/L (96-108); Estimated Glomerular Filt Rate > 60; Glucose Random 77 mg/dL (60-115); Sodium 136 mmol/L (135-145)
== END 2024-04-15 09:56 | disposition home or self-care (01) ==
LOC: HO.HMGCLDS 09:55
PROVIDERS: PCP Internal Medicine; Visit Provider Internal Medicine
DX: R53.83 Other fatigue (principal)
CPT/HCPCS: 36415; 80048; 85025

== ENCOUNTER 2024-05-01 10:13 | Outpatient (REF) | payer MEDICAID, SELFPAY ==
--- NOTE | ~2024-05-01 | MR_ITS ---
EXAMINATION: MR BRAIN WITHOUT CONTRAST CLINICAL INFORMATION: Temporal pressure, headaches and memory loss. Difficulties sentence forming. Patient states 2023 concussion. COMPARISON: None available. TECHNIQUE: MRI of the brain was obtained using routine sequences without contrast. Examination performed on a Siemens 1.5 [place] magnet using standard sequences. FINDINGS: Patient was unable to complete the examination due to claustrophobia. Only the localizer sequence was able to be obtained. Localizer demonstrates normal-appearing supratentorial and infratentorial brain with normal size ventricles sulci, and cisterns. No mass effect identified. No gross opacification of the imaged paranasal sinuses. MR/MR head/brain wo con IMPRESSION: Limited localizer examination demonstrating no abnormalities. Recommend repeat exam if the patient is able to tolerate the claustrophobia. Electronically signed by: Christo Yung MD 07/04/2024 02:17 PM EDT
== END 2024-05-01 10:14 | disposition home or self-care (01) ==
LOC: HO.MRI 10:13
PROVIDERS: PCP Internal Medicine; Visit Provider Internal Medicine
DX: H53.8 Other visual disturbances (principal)
CPT/HCPCS: 70551

== ENCOUNTER → 2024-05-01 10:35 | Outpatient (BNV) | payer MEDICAID, SELFPAY | PROVIDERS: PCP Internal Medicine; Visit Provider Radiology Diagnostic Radiology | DX: R51.9 Headache, unspecified (principal) | CPT/HCPCS: 70551 ==

== ENCOUNTER 2024-05-12 09:13 | Outpatient (AMB) | payer MEDICAID, SELFPAY ==
--- NOTE | 2024-05-12 09:20 | A.OFFVIS_ITS ---
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 Patient reports that she had surgery about 2 yrs ago for her fractured hip, when she was informed of blood infections. States her health has been deteriorating since. States pain and locking in her middle and ring fingers in bilateral hands with her right hand being the worse. States unable to patient financial coordinator items. She has tried and failed ruperto taping. 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 The patient reports that she has a significant past medical history, and then she feels her hands of worsened over the last few months. She states that she is noticing diminished ability to patient financial coordinator things in bilateral hands. Reports no numbness or tingling at this time. Patient reports that there is significant pain associated with the locking and catching, but reports that this is dull and achy. Patient reports that she would like to explore any potential treatment options available to her, as she is quite nervous about the deterioration of her overall health that has occurred over the last few months. No other acute complaints or concerns at this time. [facility] Medical History Basal cell carcinoma Skin lesion of right arm Skin lesion of back Chronic constipation Generalized anxiety disorder OCD (obsessive compulsive disorder) Avoidant and restrictive food intake disorder MSSA bacteremia Sacral pressure ulcer Malnutrition Failure to thrive in adult Normocytic anemia Cachexia Closed intertrochanteric fracture of femur Anemia Surgical History History of surgical removal of skin lesion (~01/23/24) History of hip surgery H/O foot surgery Family History Other No family history of coronary artery disease Social History Household Members: Family Household Members Other:: mother Housing: House Do you presently have visiting nurse or other home services: No Alcohol intake: never Comment: PT put on hold due to lack of patient participation Patient Tobacco Use Status: Former Tobacco user Tobacco use type: Cigarette Advance Directives Date on File: 11/16/21 service: No Current occupational status: unemployed Review of Systems Const All systems reviewed & are unremarkable except as noted in HPI and below Physical Exam Extrem Other: Patient is alert, oriented, and in no acute distress. Neuro: Median, ulnar, radial nerves motor and sensory intact and sensation is n ormal to the tips of all digits. Vascular: Cap refill brisk Pain: Patient reports pain with visible and palpable locking and catching of right middle finger, left middle finger, left ring finger ROM: With encouragement, patient is able to make a closed fist Patient is able to extend fingers fully Skin: No lacerations or abrasions. General: No ecchymosis, erythema, or evidence of infection. Noted deformities, likely secondary to osteoarthritis, noted throughout the IP joints of bilateral hands Very significant deformity of the PIP joint of the right index finger, with associated angular deformity with extension Psych: Appears grossly normal Patient is very anxious throughout examination and interview Affect normal Attitude cooperative Office Procedures Tendon Injection Tendon Injection Details: Trigger injection, left middle finger [id number] Tendon Sheath Injection All charges added?: Procedure code (CPT) selection complete Tendon Injection Tendon Injection Details: Trigger injection, left ring finger [id number] Tendon Sheath Injection All charges added?: Procedure code (CPT) selection complete Assessment & Plan Assessment & Plan (1) Trigger finger, right middle finger: Code(s): M65.331 - Trigger finger, right middle finger Category: Medical (2) Trigger finger, left middle finger: Code(s): M65.332 - Trigger finger, left middle finger Category: Medical (3) Trigger finger, left ring finger: Code(s): M65.342 - Trigger finger, left ring finger Category: Medical (4) Osteoarthritis of hands, bilateral: Code(s): M19.041 - Primary osteoarthritis, right hand; M19.042 - Primary osteoarthritis, left hand Category: Medical (5) 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 Left middle finger trigger finger 2. Left ring finger trigger finger After discussion of treatment options for trigger fingers, patient would like to proceed with injections of these fingers at this time The risks and benefits of a steroid injection including but not limited to risk of damage to blood vessels, nerves, tendons, infection, skin bleaching, failure to improve symptoms, increased pain, and possible need for further injections or other intervention were discussed with the patient and the patient wishes to proceed with the steroid injection. Injection 1: Once consent was obtained, I sterilely prepped the area over the A1 kandi of the flexor tendon sheath of the left middle finger. I then injected each of the flexor tendon sheathes with a combination of 1 mL of dexamethasone (4mg/ml), and 1% lidocaine. The patient tolerated the procedure well with no complications. Patient also reported that she began experiencing some numbness in the flexor tendon of the injected digits. Injection 2: Once consent was obtained, I sterilely prepped the area over the A1 kandi of the flexor tendon sheath of the left ring finger. I then injected each of the flexor tendon sheath with a combination of 1 mL of dexamethasone (4mg/ml), and 1% lidocaine. The patient tolerated the procedure well with no complications. Patient also reported that she began experiencing some numbness in the flexor tendon of the injected digits. If the patient continues to have locking and catching 4-6 weeks following this injection, they may call to schedule appointment to discuss alternative treatment options Follow-up prn 3. Arthritis of bilateral hands 4. Trigger finger, right middle finger 5. Deformity of right index finger PIP joint Patient inquires about any potential treatment options available for the deformity of her right index finger, as well as treatment of her right middle finger trigger finger The patient reports that her right middle finger trigger finger is the most bothersome for her, but states that she would like to hold off on any potential intervention on this finger until evaluation of index finger deformity Patient is referred to Dr. Kahn in 3-4 weeks for discussion of treatment options of of the deformity of her right index finger and her right middle fin sammy trigger finger Patient would like it known that she would prefer the least invasive potential treatment options. Patient will follow-up in 3-[address] 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
== END 2024-05-12 11:16 | disposition home or self-care (01) ==
PROVIDERS: PCP Internal Medicine
DX: M65.332 Trigger finger, left middle finger (principal); M65.342 Trigger finger, left ring finger
CPT/HCPCS: 20550; 99204

== ENCOUNTER → 2024-05-12 09:13 | Outpatient (BNVA) | payer MEDICAID, SELFPAY | PROVIDERS: PCP Internal Medicine | DX: M65.332 Trigger finger, left middle finger (principal); M65.331 Trigger finger, right middle finger; M65.342 Trigger finger, left ring finger; M19.041 Primary osteoarthritis, right hand; M19.042 Primary osteoarthritis, left hand; M20.001 Unspecified deformity of right finger(s) | CPT/HCPCS: 20550; 99212; J1100 ==

== ENCOUNTER 2024-06-03 08:47 | Outpatient (AMB) | payer MEDICAID, SELFPAY ==
--- NOTE | 2024-06-03 08:52 | MHC.OFFVIS ---
Vital Signs 06/03/24 09:08 Height 5 ft 3 in Weight 80 lb BMI 14.2 Intake Visit Reasons: ov- RT IF, LT MF trigger finger Intake Note: Karen is a 63 year old right hand dominant female who presents today for discussion of right index finger deformity and right middle finger trigger finger. 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 Patient states pain is worse then left hand and can't do daily functions.. Has had steroid injections in left hand and it helped with symptoms. Denies any prior injuries or surgeries. Patient states she would like injection in fingers on her right hand. Allergies No Known Allergies [No Known Allergies*] Allergy (Verified 06/03/24 09:24) HPI HPI ov- RT IF, LT MF trigger finger: Details: Karen is a 63 year old right hand dominant woman who presents with several complaints. She complains of a deformity of her right index finger, onset ~2018. She denies any falls or known injury. She also complains about her right middle finger locking and snapping, saying she finds this painful & limiting with daily activities. This is her chief complaint today. She also has problems with the left middle and ring fingers locking up, and received trigger finger injections on 05/12/24 by EVER Garza. She says this helped her symptoms of pain but she continues to have locking of these fingers. And her new concern is her left middle and ring fingers moving into ulnar deviation at the MCP joints. She says this began sometime in October this year. She has a Hx of 2 recent MIs, one in November and the other in January of 2024, cardiomypathy, and basal cell carcinoma. She denies any blood thinners. She has a Hx of DESTINEE, OCD, malnutrition and a food intake disorder. Her current BMI is 14.2 [facility] Medical History (Updated 06/03/24 @ 10:14 by Chris Daugherty) Basal cell carcinoma Skin lesion of right arm Skin lesion of back Chronic constipation Generalized anxiety disorder OCD (obsessive compulsive disorder) Avoidant and restrictive food intake disorder MSSA bacteremia Sacral pressure ulcer Malnutrition Failure to thrive in adult Normocytic anemia Cachexia Closed intertrochanteric fracture of femur Anemia Surgical History History of surgical removal of skin lesion (~01/23/24) History of hip surgery H/O foot surgery Family History Other No family history of coronary artery disease Social History Household Members: Family Household Members Other:: mother Housing: House Do you presently have visiting nurse or other home services: No Alcohol intake: never Comment: PT put on hold due to lack of patient participation Patient Tobacco Use Status: Former Tobacco user Tobacco use type: Cigarette Advance Directives Date on File: 11/16/21 service: No Current occupational status: unemployed Review of Systems Const All systems reviewed & are unremarkable except as noted in HPI and below Physical Exam Vital Signs: BMI result Body Mass Index 14.2 Const General: cooperative, healthy appearing and no acute distress Orientation/consciousness: patient oriented x3 HEENT Head: Yes normocephalic and Yes atraumatic Eyes EOM: EOMs intact bilaterally Resp Effort & Inspection: normal respiratory effort and able to speak in complete sentences Cardio Jugular venous distension: no JVD Skin General skin exam: turgor normal Rashes: no rashes Neuro General: patient oriented x3 Extrem Other: Evaluation of Bilateral Upper Extremity: The patient is alert and oriented. She became somewhat tearful during her appointment today She is extremely thin, indeed cachectic in appearance. Neuro: Median, Ulnar, Radial nerves motor and sensory intact and sensation is normal to the tips of all digits Vascular: Cap refill brisk ROM: Concerning the right hand: She can bring her fingers closed to a fist She can extend all her digits, however with extension she has ~50 degrees radial deviation of the index finger PIP joint. The locking and catching of the right middle finger is evident, however I do not believe this is a trigger finger. She has ulnar subluxation of the extensor tendons to the middle finger and ring finger when her fingers are brought to a fist. The middle finger extensor mechanism gets caught on the metacarpal head and snaps fairly dramatically when being brought into extension. The ring finger extensor tendon slides back more smoothly. This is evidence of radial sagittal band disruption for both the right middle and ring fingers. With regards to the left hand: Similarly, we see ulnar deviation of the extensor mechanisms to both the left middle and left ring fingers with finger flexion. There is a catching sensation as she tries to bring them into extension though it is not as dramatic as the right middle finger. She says these are not as bothersome or painful as the right middle finger. I do not see any evidence of trigger finger, and again believe that the locking and catching is due to radial sagittal band disruptions for both the left middle and ring fingers. Skin: No lacerations or abrasions. General: No Ecchymosis. No Erythema or evidence of infection. Psych Appearance: grossly normal Affect: normal affect Attitude: cooperative Assessment & Plan Assessment & Plan (1) Nontraumatic rupture of sagittal band of extensor tendon of right upper extremity: Comment: MF & RF Code(s): M66.241 - Spontaneous rupture of extensor tendons, right hand Category: Medical (2) Nontraumatic rupture of sagittal band of extensor tendon of left upper extremity: Comment: & RF Code(s): M66.242 - Spontaneous rupture of extensor tendons, left hand Category: Medical (3) Acquired deformity of joint of finger of right hand: Code(s): M20.001 - Unspecified deformity of right finger(s) Category: Medical (4) Malnutrition: Code(s): E46 - Unspecified protein-calorie malnutrition Category: Medical (5) Avoidant and restrictive food intake disorder: Code(s): F50.82 - Avoidant/restrictive food intake disorder Category: Medical (6) OCD (obsessive compulsive disorder): Code(s): F42.9 - Obsessive-compulsive disorder, unspecified Category: Medical (7) Generalized anxiety disorder: Code(s): F41.1 - Generalized anxiety disorder Category: Medical Plan Assessment & Plan: 1. Right middle finger radial sagittal band disruption This is her most painful and symptomatic complaint today. 2. Right ring finger radial sagittal band disruption Her right hand is her primary complaint today 3. Left middle finger finger radial sagittal band disruption, S/P trigger finger injection Date of injection for trigger finger: 05/12/24 by EVER Garza 4. Left ring finger finger radial sagittal band disruption, S/P trigger finger injection Date of injection for trigger finger: 05/12/24 by EVER Garza I had an extensive conversation with her about these conditions I discussed operative and non-operative treatment options. the only way to fix this is with a sagittal band reconstruction The patient would like to proceed with surgery, however she has multiple comorbidities, including a history of 2 recent MIs, in November and January of this year and will need cardiology clearance, PCP clearance, and clearance from a galvanometer assembler before we can proceed with surgery. She has rather severe malnutrition, and I was unaware at the time but she also has a history of an eating disorder. Her current BMI is 14.2 and her weight is ~80lbs. I am concerned about her wound healing due to her malnutrition, with the possibility of this not healing at all, and medically she does not appear to be a good candidate for surgery at this time. She is frustrated by this but expressed understanding She will follow up in 3-4 months to see how she is doing. 5. Right index finger PIP joint chronic deformity With ~50 degrees radial deviation when in extension, but good flexion to a fully closed fist. I educated her about this condition I suspect that the only way to fix this is with a PIP joint arthrodesis. However she would no longer flex or extend at the PIP joint following surgery, which would limit her ability to make a full fist. She will think about whether changing her appearance worth the loss of function. We did not have radiographs to evaluate this today. Radiographs, three views of the right hand with attention to the index finger would be helpful for an ex visit Please note that greater than 55 minutes was spent with this patient going over the history, evaluating the patient and radiographs, formulating possible treatment options, discussing them with the patient, and documenting the visit. Again, unfortunately she left very frustrated that operative intervention would need to be delayed for improvement in her nutrition status. Scribed for Pilar Kahn MD by Chris Daugherty, director medical writing, on 06/03/24 at 9:35 AM, EST. Coding Level of Care Code Est Pt Level 5 (13663) Diagnoses Nontraumatic rupture of sagittal band of extensor tendon of right upper extremity M66.241 Nontraumatic rupture of sagittal band of extensor tendon of left upper extremity M66.242 Acquired deformity of joint of finger of right hand M20.001 Malnutrition E46 Avoidant and restrictive food intake disorder F50.82 OCD (obsessive compulsive disorder) F42.9 Generalized anxiety disorder F41.1
[2024-06-03 09:08] VITALS: BMI 14.2
== END 2024-06-03 10:09 | disposition home or self-care (01) ==
PROVIDERS: PCP Internal Medicine; Referring Provider Internal Medicine; Visit Provider Orthopaedic Surgery
DX: M66.241 Spontaneous rupture of extensor tendons, right hand (principal); M66.242 Spontaneous rupture of extensor tendons, left hand; M20.001 Unspecified deformity of right finger(s); F42.9 Obsessive-compulsive disorder, unspecified; F41.1 Generalized anxiety disorder
CPT/HCPCS: 99214

== ENCOUNTER → 2024-06-03 08:47 | Outpatient (BNVA) | payer MEDICAID, SELFPAY | PROVIDERS: PCP Internal Medicine; Visit Provider Orthopaedic Surgery | DX: M66.241 Spontaneous rupture of extensor tendons, right hand (principal); M66.242 Spontaneous rupture of extensor tendons, left hand; M20.001 Unspecified deformity of right finger(s); E46 Unspecified protein-calorie malnutrition; F50.82 Avoidant/restrictive food intake disorder; F42.9 Obsessive-compulsive disorder, unspecified; F41.1 Generalized anxiety disorder | CPT/HCPCS: 99212 ==

== ENCOUNTER 2024-07-07 06:22 | Day surgery (SDC) | payer MEDICAID, SELFPAY ==
--- NOTE | 2024-07-03 13:00 | P.CONAN_ITS ---
Documented by User: Raquel Hill NP 07/03/24 13:00 HPI - Anesthesia Eval Consult details Narrative: 63yo F for Left Cataract Extraction IOL Insertion No previous cataract on record PMFSH Active Problems Active Problems: All Active Problems Nontraumatic rupture of sagittal band of extensor tendon of right upper extremity (Acute) Nontraumatic rupture of sagittal band of extensor tendon of left upper extremity (Acute) Acquired deformity of joint of finger of right hand (Acute) Osteoarthritis of hands, bilateral (Acute) Trigger finger, left ring finger (Acute) Trigger finger, left middle finger (Acute) Trigger finger, right middle finger (Acute) Urinary retention (Acute) Ischemic cardiomyopathy (Acute) Bradycardia (Acute) Non-ST elevated myocardial infarction (Acute) Anemia (Acute) OCD (obsessive compulsive disorder) (Acute) Generalized anxiety disorder (Acute) Basal cell carcinoma (Acute) Skin lesion of right arm (Acute) Skin lesion of back (Acute) Failure to thrive in adult (Acute) Malnutrition (Acute) Chronic constipation (Acute) Avoidant and restrictive food intake disorder (Acute) Closed intertrochanteric fracture of femur (Acute) Past Medical History Medical History Myocardial infarct Hx: UTI (urinary tract infection) (~03/01/24) Cataract Anxiety Basal cell carcinoma Skin lesion of right arm Skin lesion of back Chronic constipation Generalized anxiety disorder OCD (obsessive compulsive disorder) Avoidant and restrictive food intake disorder MSSA bacteremia Sacral pressure ulcer Malnutrition Failure to thrive in adult Normocytic anemia Cachexia Closed intertrochanteric fracture of femur Anemia Family History Family History Other No family history of coronary artery disease Family history of problems with anesthesia: No Surgical History Surgical History Hx of basal cell carcinoma excision History of surgical removal of skin lesion (~01/23/24) History of hip surgery (11/16/21) H/O foot surgery History of Problems with Anesthesia: No Social History Social History Household Members: Family Household Members Other:: mother Housing: House Are you a primary direct care supervisor to a significant other at home: No Do you presently have visiting nurse or other home services: No Alcohol intake: never Comment: runs 30 minutes on treadmill daily Patient Tobacco Use Status: Former Tobacco user Tobacco use type: Cigarette Smoked in Last 30 Days: No Use of substances other than those prescribed or required for medical reasons: No Have you been hit, kicked, punched, or otherwise hurt by someone within the past year? If so, by whom?: No Are you DNR?: No Advance Directives: Yes Advance Directives Information Provided: Yes Advance Directives on File: Yes Advance Directives Date on File: 11/16/21 Recently lost weight without trying: Unsure Nutrition Risks: Emaciation/Cachexia Poor oral hygiene: No service: Yes Current occupational status: unemployed Meds Allergies Allergy/AdvReac Type Severity Reaction Status Date / Time No Known Allergies Allergy Verified 07/07/24 06:30 [No Known Allergies*] Home Medications ?Medication ?Instructions ?Recorded ?Confirmed ?Last Taken ?Type multivitamin 1 tab PO DAILY 01/09/24 07/04/24 Unknown History calcium carbonate 600 mg-vitamin 1 tab PO DAILY 07/04/24 07/04/24 Unknown History D3 5 mcg (200 unit) tablet phenazopyridine 200 mg tablet 200 mg PO TID PRN Bladder Spasms 07/04/24 07/04/24 Unknown History (Pyridium) Assessment and Plan Assessment Anesthesia Assessment: Chart Reviewed Final Anesthetic Review Family History of Problems with Anesthesia: No History of Problems with Anesthesia: No Documented by User: Concha Rosado MD 07/07/24 08:37 PMFSH Past Medical History Medical History Myocardial infarct Hx: UTI (urinary tract infection) (~03/01/24) Cataract Anxiety Basal cell carcinoma Skin lesion of right arm Skin lesion of back Chronic constipation Generalized anxiety disorder OCD (obsessive compulsive disorder) Avoidant and restrictive food intake disorder MSSA bacteremia Sacral pressure ulcer Malnutrition Failure to thrive in adult Normocytic anemia Cachexia Closed intertrochanteric fracture of femur Anemia Family History Family History Other No family history of coronary artery disease Surgical History Surgical History Hx of basal cell carcinoma excision History of surgical removal of skin lesion (~01/23/24) History of hip surgery (11/16/21) H/O foot surgery Social History Social History Household Members: Family Household Members Other:: mother Housing: House Are you a primary direct care supervisor to a significant other at home: No Do you presently have visiting nurse or other home services: No Alcohol intake: never Comment: runs 30 minutes on treadmill daily Patient Tobacco Use Status: Former Tobacco user Tobacco use type: Cigarette Smoked in Last 30 Days: No Use of substances other than those prescribed or required for medical reasons: No Have you been hit, kicked, punched, or otherwise hurt by someone within the past year? If so, by whom?: No Are you DNR?: No Advance Directives: Yes Advance Directives Information Provided: Yes Advance Directives on File: Yes Advance Directives Date on File: 11/16/21 Recently lost weight without trying: Unsure Nutrition Risks: Emaciation/Cachexia Poor oral hygiene: No service: Yes Current occupational status: unemployed Meds Allergies Allergy/AdvReac Type Severity Reaction Status Date / Time No Known Allergies Allergy Verified 07/07/24 06:30 [No Known Allergies*] Home Medications ?Medication ?Instructions ?Recorded ?Confirmed ?Last Taken ?Type multivitamin 1 tab PO DAILY 01/09/24 07/04/24 Unknown History calcium carbonate 600 mg-vitamin 1 tab PO DAILY 07/04/24 07/04/24 Unknown History D3 5 mcg (200 unit) tablet phenazopyridine 200 mg tablet 200 mg PO TID PRN Bladder Spasms 07/04/24 07/04/24 Unknown History (Pyridium) Exam Airway Mallampati Class: II TM Dist: <=3cm Neck ROM: Limited Heart: rrr Lungs: cta Assessment and Plan Assessment Anesthesia Assessment: Anesthesia Plan Discussed Final Anesthetic Review NPO: Yes ASA Class: III Final Preanesthetic Review: No Changes in Pt Med Stat, Meds/Allgs Chart Reviewed, Consent Obtained/Reviewed and Anes Risks/Benef Reviewed Patient Risk: Intermediate Procedure Risk: Low Anesthetic Plan Anesthetic Plan: MAC: Disposition: Standard PACU
[2024-07-04 07:57] VITALS: BMI 11.9
[2024-07-04 09:21] VITALS: BMI 14.2
[2024-07-07 06:37] VITALS: BP 146/75; PULSE 54; RESP 14; TEMP 35.9; O2SAT 100
[2024-07-07] MEDS: Tetracaine HCl/PF 0.5% Oph Sol 4 ML DROPS 1 DROP EYE-LEFT (06:46)
[2024-07-07] MEDS: Cyclopentolate 1 % Ophth Sol 2 ML DRPBTL 1 DROP EYE-LEFT ×3 (06:48→06:59)
[2024-07-07] MEDS: Tropicamide 1 % Ophth Sol 3 ML BTL 1 DROP EYE-LEFT ×3 (06:49→07:00)
[2024-07-07] MEDS: Ketorolac Tromethamine 0.5% Op 10 ML DROPS 1 DROP EYE-LEFT ×3 (06:50→07:01)
[2024-07-07] MEDS: Phenylephrine HCL 2.5% Oph SoL 2 ML BOTTLE 1 DROP EYE-LEFT ×3 (06:51→07:03)
[2024-07-07] MEDS: Lactated Ringers 500 ML 50 ML IV (07:23)
[2024-07-07 07:25] VITALS: BMI 14.0
--- NOTE | 2024-07-07 07:37 | MHC.SHP ---
Pre-Procedural Eval Section A - 24 Hr Update-Section A only Date of Service: 07/07/24 The patient is an INPATIENT: No Changes since office visit: No Cold of Flu in the past 2 weeks, No New Medical Problems, No Changes in Medication and No Patient answered all questions The patient has been examined within 24 hours of the surgical procedure. The History & Physical has been completed within 30 days and I have reviewed it.: Yes Section B - Complete if H&P > 30 days Chief Complaint: Age-related nuclear cataract, left eye Allergies: Allergies Allergy/AdvReac Type Severity Reaction Status Date / Time No Known Allergies Allergy Verified 07/07/24 06:30 [No Known Allergies*] Plan Diagnosis/Plan: Unchanged I have reviewed the history and physical and performed a pertinent physical examination on my patient. No changes have occurred unless specified. Time Spent With Patient Time: Total time managing care of this patient today ____ minutes.
--- NOTE | 2024-07-07 07:37 | HO.PNOPHT ---
Ophthalmology Procedure Procedure Date of Service: 07/07/24 Ophthalmology Viscoelastic: Healon Duet Dual Pack Pro Ophthalmology Lenses: IOL Acrysof MP - [id number] (22.5) Procedure Notes: PREOPERATIVE DIAGNOSIS: Decreased visual acuity left eye secondary to cataract POSTOPERATIVE DIAGNOSIS: Same PROCEDURE: Left cataract extraction with intraocular lens insertion SURGEON: Nathan Gan M.D. ANESTHESIA: Topical/MAC ESTIMATED BLOOD LOSS: None COMPLICATIONS: None After obtaining informed consent, the patient was brought to the operation room suite and placed in the supine position. After adequate sedation per anesthesia, topical drops of Tetracaine were given to the left eye. The eye was then prepped and draped in the usual sterile fashion. The operating room microscope was then positioned over the operative eye and a lid speculum placed. A paracentesis was created. Viscoelastic was then instilled into the anterior chamber. A three plane incision was then created temporally, utilizing a 2.85 mm keratome. Capsulotomy forceps were then utilized to create a circular tear capsulotomy. Hydrodissection and hydrodelineation were carried out until adequate mobilization of the nucleus occurred. Phacoemulsification was then utilized to remove the dense central nucleus followed by removal of the cortical material utilizing the automated aspiration irrigation unit. Viscoat elastic was instilled into the posterior capsular bag followed by placement of a posterior chamber intraocular lens without difficulty. The residual Viscoat elastic was then removed utilizing the automated IA machine. The wound was check and found to be watertight. The patient tolerated the procedure well and the lid speculum was removed. Intracameral injection of Vigamox 0.1 mL followed by a subtenon injection of Kenalog-40 0.2 mL were administered. The patient will be seen in the a.m.
[2024-07-07 08:00] VITALS: BP 139/80; PULSE 54; RESP 14; TEMP 36.6; O2SAT 99
== END 2024-07-07 08:15 | disposition home or self-care (01) ==
PROVIDERS: PCP Internal Medicine; Visit Provider Ophthalmology
PROC: (CPT 66985; principal; 2024-07-07 08:00)
DX: H25.12 Age-related nuclear cataract, left eye (principal); H52.4 Presbyopia; D31.31 Benign neoplasm of right choroid; H43.393 Other vitreous opacities, bilateral; H18.413 Arcus senilis, bilateral; H11.153 Pinguecula, bilateral; I10 Essential (primary) hypertension; K21.9 Gastro-esophageal reflux disease without esophagitis; E46 Unspecified protein-calorie malnutrition; D64.9 Anemia, unspecified; I25.2 Old myocardial infarction; Z79.82 Long term (current) use of aspirin; Z79.899 Other long term (current) drug therapy; Z87.891 Personal history of nicotine dependence; Z56.0 Unemployment, unspecified
CPT/HCPCS: 66984; J2250; J3301; V2630

== ENCOUNTER 2024-08-07 13:12 | Outpatient (REF) | payer MEDICAID, SELFPAY ==
--- NOTE | ~2024-08-07 | XR_ITS ---
EXAMINATION: XR LUMBOSACRAL SPINE CLINICAL INFORMATION: LOW BACK PAIN, R/O DJD, FX COMPARISON: CT abdomen pelvis 02/27/2024 TECHNIQUE: Three views of the lumbosacral spine. FINDINGS: Moderate degenerative changes are present in the spine with disc space narrowing from L3 through S1. There is grade 1 anterolisthesis of L5 upon S1. There is a minimal scoliosis. There is marked vascular calcification. Partial visualization of a screw in the right hip. XR/XR lumbar spine 2-3V IMPRESSION: Moderate degenerative changes in the spine with grade 1 anterolisthesis of L5 upon S1. Electronically signed by: Amilcar Lopez MD 09/01/2024 12:50 PM CAT
== END 2024-08-07 13:13 | disposition home or self-care (01) ==
LOC: HO.HMGCX 13:12
PROVIDERS: PCP Internal Medicine; Visit Provider Internal Medicine
DX: M54.50 Low back pain, unspecified (principal)
CPT/HCPCS: 72100

== ENCOUNTER 2024-09-16 09:14 | Outpatient (REF) | payer MEDICAID, SELFPAY | END 2024-09-16 09:15 | disposition home or self-care (01) | LOC: HO.HOSX 09:14 | PROVIDERS: Visit Provider Orthopaedic Surgery | DX: Z13.89 Encounter for screening for other disorder (principal) ==

== ENCOUNTER 2024-09-17 08:59 | Outpatient (AMB) | payer MEDICAID, SELFPAY ==
--- NOTE | 2024-09-17 09:00 | MHC.OFFVIS ---
Vital Signs 09/17/24 09:03 Height 5 ft 3 in Weight 77 lb 2.589 oz BMI 13.7 Intake Visit Reasons: skin lesion Intake Note: This patient presents for skin lesion, possible biopsy. Pt c/o; reports she has a skin lesion left which bleeds occasionally. Rehabilitation Construction Specialist Required: No Accompanied by: Self / Same As Patient Allergies No Known Allergies [No Known Allergies*] Allergy (Verified 09/17/24 09:16) Medication List - Last Reconciled 09/17/24 by Justin Pearson MD aspirin 81 mg PO DAILY calcium carbonate-vitamin D3 600 mg-5 mcg (200 unit) 1 tab PO DAILY multivitamin 1 tab PO DAILY phenazopyridine (Pyridium) 200 mg PO TID PRN HPI HPI skin lesion: Details: She is here for another skin lesion. This time, this is on the left shoulder anteriorly. She has had this for a few months. She says that this has been increasing in size. She was not able to come earlier this year as she had other multiple medical issues requiring intervention including cataract surgery. She says that this lesion frequently bleeds when it gets irritated. [facility] Medical History (Updated 09/17/24 @ 09:56 by Justin Pearson MD) Skin lesion Myocardial infarct Hx: UTI (urinary tract infection) (~03/01/24) Cataract Anxiety Basal cell carcinoma Skin lesion of right arm Skin lesion of back Chronic constipation Generalized anxiety disorder OCD (obsessive compulsive disorder) Avoidant and restrictive food intake disorder MSSA bacteremia Sacral pressure ulcer Malnutrition Failure to thrive in adult Normocytic anemia Cachexia Closed intertrochanteric fracture of femur Anemia Surgical History Hx of basal cell carcinoma excision History of surgical removal of skin lesion (~01/23/24) History of hip surgery (11/16/21) H/O foot surgery Family History Other No family history of coronary artery disease Social History Household Members: Family Household Members Other:: mother Housing: House Are you a primary respiratory care practitioner to a significant other at home: No Do you presently have visiting nurse or other home services: No Alcohol intake: never Comment: runs 30 minutes on treadmill daily Patient Tobacco Use Status: Former Tobacco user Tobacco use type: Cigarette Advance Directives Date on File: 11/16/21 service: Yes Current occupational status: unemployed Review of Systems Const Denies chills and Denies fever(s) Card Denies chest pain at rest GI Denies abdominal pain Denies difficulty voiding Musc Reports back pain Physical Exam Vital Signs: BMI result Body Mass Index 13.7 Const General: comfortable and no acute distress Chest Other: Left anterior shoulder with note of an elevated, smooth, ulcerating lesion, what 4 cm in widest dimension, with pearly edges Resp Effort & Inspection: normal respiratory effort Cardio Palpation: normal PMI GI Palpation (GI): Soft to palpation Assessment & Plan Assessment & Plan (1) Skin lesion: Code(s): L98.9 - Disorder of the skin and subcutaneous tissue, unspecified Category: Medical Plan: She has another skin lesion as described above. This appears to be a basal cell carcinoma. I explained to her the technique of excision. I reviewed with her the risks including but not limited to bleeding, infections, poor healing and postop pain, as well as the benefits and alternatives She does not want this done under anesthesia as I had recommended. She says that she is willing to go for local anesthesia here in the office. I did tell her that in view of the size, she may be uncomfortable during the procedure but she insists that she does not want to go the OR for this. We will therefore schedule this in the office. Coding Level of Care Code Est Pt Level 3 (16212) Diagnoses Skin lesion L98.9
[2024-09-17 09:03] VITALS: BMI 13.7
--- OUTSIDE RECORDS SUMMARY | 2024-09-17 23:17 | XMS_ITS | Encounter Summary ---
Author Name [facility] Organization [facility] Address [address] [place] [address] Support Name Relationship Address Phone JOHN CORTEZ Next of Kin [address] [place] [address] JOHN CORTEZ Emergency Contact [address] [place] [phone] Selected Encounter This section includes the information on record at ME for the Encounter. Date/Time Encounter Type Encounter Description Reason Pro vider Source Dec 10, 2023 03:52 PM Outpatient Encounter COMMUNITY CARE CONSULT IHE Encounter Template Text not used by ME Social History: Smoking Status (Most current) and Tobacco Use (All prior to encounter date) This section includes the most current, and the historical, smoking and tobacco- related health factors from the ME facility where the Encounter took place. Current Smoking Status This section includes the most current smoking, or tobacco-related health factor, from the ME facility where the Encounter took place. Date/Time Current Smoking Status Comment Phil garcia Jul 11, 2012 09:14 AM QUIT TOBACCO USE 1 -7 YEARS AGO [facility] Tobacco Use History This section includes a history of the smoking, or tobacco-related health factors, that were collected on or before the date of the Encounter. The data comes from the ME facility where the Encounter took place. Date/Time Smoking Status/Tobacco Use Comment Yoon acnadia Jan 27, 2010 12:11 PM QUIT TOBACCO USE 1 -7 YEARS AGO [facility] Dec 25, 2001 02:54 PM CURRENT SMOKER [facility] Advance Directives: All historical and current Section Date Range: From patient's date of to the date document was created. This section includes ALL of a patient's completed or amended [place] Advance and Rescinded Directives. The entries below indicate that a directive exists for the patient, but an actual copy is not included with this document. The data comes from all [place] facilities. Date Advance Directives Provider Source Jul 11, 2012 ADVANCE DIRECTIVE HELENSHAKAANYA Marium [place] CN TRL BER[place]TRFam [facility] Encounter Notes: All associated encounter notes This section contains the clinical notes associated to the Encounter. Date/Time Encounter Note(s) Provider Source Dec 10, 2023 03:52 PM NONVA NOTE: [facility] TITLE: COUNTS INCLUDE 234 BEDS AT THE [facility] PRESENTING CARE COORD PLAN STANDARD TITLE: NONVA NOTE DATE OF NOTE: DEC 10, 2023@15:52 ENTRY DATE: DEC 10, 2023@15:52:45 AUTHOR: BETH ORTIZ COSIGNER: URGENCY: STATUS: COMPLETED Emergency Notification Intake Date Presenting to the Facility: Nov Method of Contact: Notified from ECR worklist Notification ID: [id number] [facility] Referral #: [facility] Name: Hospital: [facility] Address: City: [place] State: [place] Zip Code: Phone : [facility] Point of Contact: Name: Anai Phone: Chief complaint: ABN EKG COMING FROM PCP OFFICE Primary Diagnosis: Disposition Discharged Date of discharge: Nov Discharge to Comment: ER Only /bart/ BETH DIETRICH Signed: 12/10/2023 15:54 Receipt Acknowledged By: * AWAITING SIGNATURE * LAZARO MORENO * AWAITING SIGNATURE * DEBRA DEGROOT * AWAITING SIGNATURE * LUCIUS VILLA * AWAITING SIGNATURE * KANDIS AGUILAR DAWN MARIE SEMINOLE
--- OUTSIDE RECORDS SUMMARY | 2024-09-17 23:17 | XMS_ITS | Continuity of Care Document ---
Author Name [facility] Organization [facility] Care Team Providers Care Brake Rider Name Role Phone [facility] Unavailable Unavailable Problems Combined list of problems from Department of Defense and Veterans Affairs facilities. It does not include entries that were removed or entered in error. Problem Status Onset Date Problem Type Date of Resolution Comments Source Anemia, NOS Active Condition [facility] Ecchymosis Active Condition [facility] Epidermal Cyst Active Condition [facility] Health Maintenance Active Condition Nov 24, 2009 Entered By: GUANAKITO CHESTER AM Comment: -- due for Pap [facility] Underweight Active Condition [facility] Medications Combined list of outpatient medications from Department of Defense and Veterans Affairs facilities.Medications provided include 1) outpatient medications from the last 15 months, and 2) patient-reported medications. Medication Details Route Status Patient Instructions Prescription Expires Prescription Number Last Dispense Date Ordering Provider Order Date Order Qty Source VITAMIN D3 (CHOLECALCI FEROL) TAB TAKE 200 UNITS BY MOUTH DAILY ORAL ACTIVE DIANA CHESTER S 2011 [facility] Immunizations Combined list of available immunizations from the Department of Defense and Veterans Affairs facilities. Immunization Series Date Given Administered By Site Reaction Lot Number CVX Code Drug Loan Documents Closer Status Comments Source FLU,3 YRS (HISTORICAL) 2015 88 complet ed [facility] FLU,3 YRS (HISTORICAL) 2011 88 complet ed [facility] DTAP, UNSPECIFIED FORMULATION 2011 107 complet ed [facility] UNSPECIFIED FORMULATION 2011 139 complet ed [facility] Encounters Combined list of: 1) Encounters from Department of Veterans Affairs facilities going back up to thelast 18 months. 2) Encounters from the Department of Defense facilities going back up to 280 months. Location Location Details Encounter Type Encounter Number Reason For Visit Attending Provider ADM Date DC Date Status Disposition Source [facility] Outpatient Encounter [id number] 12/09 [facility] Social History Combined list of available smoking, tobacco, and other social history from Department of Defense and Veterans [facility] facilities. Social History Type Response Date Comment Sourc e Tobacco smoking status NHIS QUIT TOBACCO USE 1-7 YEARS AGO 07/11/2012 [facility] History of tobacco use QUIT TOBACCO USE 1-7 YEARS AGO 01/27/2010 [facility] History of tobacco use CURRENT SMOKER 12/25/2001 [facility] Advance Directives List of completed, amended, or rescinded Advance Directives on record at Department of Veterans [facility] facilities. An actual copy of the Directive is not included. Date Advance Directive Provider Source 07/11/2012 ADVANCE DIRECTIVE ANYA [facility]
== END 2024-09-17 09:35 | disposition home or self-care (01) ==
PROVIDERS: PCP Internal Medicine; Visit Provider Surgery
DX: L98.9 Disorder of the skin and subcutaneous tissue, unspecified (principal)
CPT/HCPCS: 99213

== ENCOUNTER → 2024-09-17 08:59 | Outpatient (BNVA) | payer MEDICAID, SELFPAY | PROVIDERS: PCP Internal Medicine; Visit Provider Surgery | DX: L98.9 Disorder of the skin and subcutaneous tissue, unspecified (principal) | CPT/HCPCS: 99212 ==

== ENCOUNTER 2024-09-29 09:43 | Outpatient (AMB) | payer MEDICAID, SELFPAY ==
--- OUTSIDE RECORDS SUMMARY | 2024-09-29 09:49 | XMS_ITS | Encounter Summary ---
Author Name [facility] Organization [facility] Address [address] [place] [address] Support Name Relationship Address Phone JOHN CORTEZ Next of Kin [address] [place] [address] JOHN CORTEZ Emergency Contact [address] [place] [phone] Selected Encounter This section includes the information on record at ID for the Encounter. Date/Time Encounter Type Encounter Description Reason Pro vider Source Dec 10, 2023 03:52 PM Outpatient Encounter COMMUNITY CARE CONSULT IHE Encounter Template Text not used by ID Social History: Smoking Status (Most current) and Tobacco Use (All prior to encounter date) This section includes the most current, and the historical, smoking and tobacco- related health factors from the ID facility where the Encounter took place. Current Smoking Status This section includes the most current smoking, or tobacco-related health factor, from the ID facility where the Encounter took place. Date/Time Current Smoking Status Comment Phil garcia Jul 11, 2012 09:14 AM QUIT TOBACCO USE 1 -7 YEARS AGO [facility] Tobacco Use History This section includes a history of the smoking, or tobacco-related health factors, that were collected on or before the date of the Encounter. The data comes from the ID facility where the Encounter took place. Date/Time Smoking Status/Tobacco Use Comment Yoon acnadia Jan 27, 2010 12:11 PM QUIT TOBACCO USE 1 -7 YEARS AGO [facility] Dec 25, 2001 02:54 PM CURRENT SMOKER [facility] Advance Directives: All historical and current Section Date Range: From patient's date of to the date document was created. This section includes ALL of a patient's completed or amended [place] Advance and Rescinded Directives. The entries below indicate that a directive exists for the patient, but an actual copy is not included with this document. The data comes from all ID facilities. Date Advance Directives Provider Source Jul 11, 2012 ADVANCE DIRECTIVE HELENSHAKAANYA Marium [place] CN TRL [facility]am [facility] Encounter Notes: All associated encounter notes This section contains the clinical notes associated to the Encounter. Date/Time Encounter Note(s) Provider Source Dec 10, 2023 03:52 PM NONVA NOTE: [facility] TITLE: [facility] PRESENTING CARE COORD PLAN STANDARD TITLE: NONVA NOTE DATE OF NOTE: DEC 10, 2023@15:52 ENTRY DATE: DEC 10, 2023@15:52:45 AUTHOR: BETH ORTIZ COSIGNER: URGENCY: STATUS: COMPLETED Emergency Notification Intake Date Presenting to the Facility: Nov Method of Contact: Notified from ECR worklist Notification ID: [id number] [facility] Referral #: [facility] Name: Hospital: [facility] Address: City: [place] State: [place] Zip Code: Phone : [facility] Point of Contact: Name: Anai Phone: Chief complaint: ABN EKG COMING FROM PCP OFFICE Primary Diagnosis: Disposition Discharged Date of discharge: Nov Discharge to Comment: ER Only /bart/ BETH DIETRICH Signed: 12/10/2023 15:54 Receipt Acknowledged By: * AWAITING SIGNATURE * LAZARO MORENO * AWAITING SIGNATURE * DEBRA DEGROOT * AWAITING SIGNATURE * LUCIUS VILLA * AWAITING SIGNATURE * KANDIS AGUILAR DAWN MARIE [place]
--- OUTSIDE RECORDS SUMMARY | 2024-09-29 09:49 | XMS_ITS | Continuity of Care Document ---
Author Name [facility] Organization [facility] Care Team Providers Care Shipping Support Name Role Phone [facility] Unavailable Unavailable Problems Combined list of problems [...] DAILY ORAL ACTIVE DIANA CHESTER S 2011 [facility] Immunizations Combined list of available immunizations from the Department of Defense and Veterans Affairs facilities. Immunization Series Date Given Administered By Site Reaction Lot Number CVX Code Drug Measuring Machine Operator Status Comments Source FLU,3 YRS (HISTORICAL) 2015 88 complet ed [facility] FLU,3 YRS (HISTORICAL) 2011 88 complet ed [facility] DTAP, UNSPECIFIED FORMULATION 2011 107 complet ed [facility] UNSPECIFIED FORMULATION 2011 139 complet ed [facility] Encounters Combined list of: 1) Encounters from Department of Veterans Affairs facilities going back up to thelast 18 months. 2) Encounters from the Department of Defense facilities going back up to 280 months. Location Location Details Encounter Type Encounter Number Reason For Visit Attending Provider ADM Date DC Date Status Disposition Source [facility] Outpatient Encounter [id number] 12/09 [facility] Social History Combined list of available smoking, tobacco, and other social history from Department of Defense and Veterans [facility] facilities. Social History Type Response Date Comment Sourc e Tobacco smoking status NHIS QUIT TOBACCO USE 1-7 YEARS AGO 07/11/2012 [facility] History of tobacco use QUIT TOBACCO USE 1-7 YEARS AGO 01/27/2010 [facility] History of tobacco use CURRENT SMOKER 12/25/2001 [facility] Advance Directives List of completed, amended, or rescinded Advance Directives on record at Department of Veterans [facility] facilities. An actual copy of the Directive is not included. Date Advance Directive Provider Source 07/11/2012 ADVANCE DIRECTIVE ANYA KIM [facility]
[2024-09-29 10:00] VITALS: BMI 13.7
--- NOTE | 2024-09-29 10:00 | A.OFFVIS_ITS ---
Vital Signs 09/29/24 10:00 Height 5 ft 3 in Weight 77 lb 2.589 oz BMI 13.7 Intake Visit Reasons: Exicsion skin lesion left shoulder Intake Note: Office procedure: excision skin lesion left shoulder. Seam Hammerer Required: No Accompanied by: Self / Same As Patient Allergies No Known Allergies [No Known Allergies*] Allergy (Verified 09/29/24 10:39) HPI HPI Exicsion skin lesion left shoulder: Details: She is here for excision of a skin lesion of the left shoulder. [facility] Medical History Skin lesion Myocardial infarct Hx: UTI (urinary tract infection) (~03/01/24) Cataract Anxiety Basal cell carcinoma Skin lesion of right arm Skin lesion of back Chronic constipation Generalized anxiety disorder OCD (obsessive compulsive disorder) Avoidant and restrictive food intake disorder MSSA bacteremia Sacral pressure ulcer Malnutrition Failure to thrive in adult Normocytic anemia Cachexia Closed intertrochanteric fracture of femur Anemia Surgical History Hx of basal cell carcinoma excision History of surgical removal of skin lesion (~01/23/24) History of hip surgery (11/16/21) H/O foot surgery Family History Other No family history of coronary artery disease Social History Household Members: Family Household Members Other:: mother Housing: House Are you a primary healthcare customer service to a significant other at home: No Do you presently have visiting nurse or other home services: No Alcohol intake: never Comment: runs 30 minutes on treadmill daily Patient Tobacco Use Status: Former Tobacco user Tobacco use type: Cigarette Advance Directives Date on File: 11/16/21 service: Yes Current occupational status: unemployed Physical Exam Vital Signs: BMI result Body Mass Index 13.7 Office Procedures Excision Details: She was in reclining position. The area of the skin lesion on the left shoulder was prepped and draped. Lidocaine 1% was used for local anesthesia. I made an elliptical incision on the skin around this lesion using blade 15. We made sure that there was note of grossly negative skin margins. I carried down this incision through the full-thickness of the skin and subcutaneous fat. I excised this entire lesion along this well-defined plane. The excised area was about 4.5 cm x 4.2 cm. I closed the incision with full-thickness nylon 3-0 simple interrupted sutures. Dressings were applied. The procedure was completed. She tolerated procedure well. There were no immediate complications. She was given wound care instructions. 58495-xbfmx/arms/legs >4cm Procedure code (CPT) selection complete Assessment & Plan Assessment & Plan (1) Skin lesion: Code(s): L98.9 - Disorder of the skin and subcutaneous tissue, unspecified Category: Medical Plan: Excision was done in the office under local anesthesia. She tolerated procedure well. She was given wound care instructions. She will be seen in the office for follow-up for removal of sutures. Medications: New tramadol 50 mg PO TID PRN 25 tabs 0RF pain Coding Level of Care Code Procedure Only Diagnoses Skin lesion L98.9 CPT Codes Trunk/Arms/Legs - CPT: 30828-nkgmd/arms/legs >4cm ([id number])
== END 2024-09-29 10:41 | disposition home or self-care (01) ==
PROVIDERS: PCP Internal Medicine; Visit Provider Surgery
DX: C43.62 Malignant melanoma of left upper limb, including shoulder (principal)
CPT/HCPCS: 11606

== ENCOUNTER 2024-09-29 09:43 | Outpatient (REF) | payer MEDICAID, SELFPAY | END 2024-09-29 09:44 | disposition home or self-care (01) | LOC: HO.LNP 09:43 | PROVIDERS: PCP Internal Medicine; Visit Provider Surgery | DX: L98.9 Disorder of the skin and subcutaneous tissue, unspecified (principal) | CPT/HCPCS: 11606; 88304; 88305 ==

== ENCOUNTER 2024-10-16 09:47 | Outpatient (AMB) | payer MEDICAID, SELFPAY ==
--- NOTE | 2024-10-16 09:49 | MHC.OFFVIS ---
Vital Signs 10/16/24 09:52 Height 5 ft 3 in Weight 77 lb 2.589 oz BMI 13.7 Intake Visit Reasons: s/p Exicsion skin lesion left shoulder Intake Note: This patient presents for suture removal status post Excision skin lesion left shoulder. Pt c/o; reports no complaints at this time. Answering Service Telephone Operator Required: No Accompanied by: Self / Same As Patient Allergies No Known Allergies [No Known Allergies*] Allergy (Verified 10/16/24 09:53) HPI HPI s/p Exicsion skin lesion left shoulder: Details: She underwent excision of a large skin lesion on the left shoulder under local anesthesia last 09/29/2024. She is here for a postop visit. She denies significant complaints. [facility] Medical History Skin lesion Myocardial infarct Hx: UTI (urinary tract infection) (~03/01/24) Cataract Anxiety Basal cell carcinoma Skin lesion of right arm Skin lesion of back Chronic constipation Generalized anxiety disorder OCD (obsessive compulsive disorder) Avoidant and restrictive food intake disorder MSSA bacteremia Sacral pressure ulcer Malnutrition Failure to thrive in adult Normocytic anemia Cachexia Closed intertrochanteric fracture of femur Anemia Surgical History History of surgical removal of skin lesion (~09/29/24) Hx of basal cell carcinoma excision History of surgical removal of skin lesion (~01/23/24) History of hip surgery (11/16/21) H/O foot surgery Family History Other No family history of coronary artery disease Social History Household Members: Family Household Members Other:: mother Housing: House Are you a primary intensive care ambulance paramedic to a significant other at home: No Do you presently have visiting nurse or other home services: No Alcohol intake: never Comment: runs 30 minutes on treadmill daily Patient Tobacco Use Status: Former Tobacco user Tobacco use type: Cigarette Advance Directives Date on File: 11/16/21 service: Yes Current occupational status: unemployed Review of Systems Const Denies chills and Denies fever(s) Psych Reports anxiety and Reports depression Physical Exam Vital Signs: BMI result Body Mass Index 13.7 Const Other: Anxious General: comfortable and no acute distress Resp Effort & Inspection: normal respiratory effort Extrem Other: Left shoulder excision site well healed, no obvious gross residual lesion, no signs of infection Assessment & Plan Assessment & Plan (1) Basal cell carcinoma: Code(s): C44.91 - Basal cell carcinoma of skin, unspecified Category: Medical Plan: Status post excision. The path report does show basal cell carcinoma, and there is some focally positive margins. Grossly, there is no obvious skin lesion remaining. However, I explained to her that with the focally positive margins, there is always the risk of recurrence so this should be watched closely. She says she will continue to follow up with me down the line because of her multiple skin lesions. Coding Level of Care Code Global (28354) Diagnoses Basal cell carcinoma C44.91
[2024-10-16 09:52] VITALS: BMI 13.7
--- OUTSIDE RECORDS SUMMARY | 2024-10-16 10:11 | XMS_ITS | Continuity of Care Document ---
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 Immunization Series Date Given Administered By Site Reaction Lot Number CVX Code Drug Slat Pickler Status Comments Source FLU,3 YRS (HISTORICAL) 2015 88 complet ed [facility] FLU,3 YRS (HISTORICAL) 2011 88 complet ed [facility] DTAP, UNSPECIFIED FORMULATION 2011 107 complet ed [facility] UNSPECIFIED FORMULATION 2011 139 complet ed [facility] Encounters Combined list of: 1) Encounters from Department of Veterans Affairs facilities going back up to thelast 18 months. 2) Encounters from the Department of Defense facilities going back up to 280 months. Location Location Details Encounter Type Encounter Number Reason For Visit Attending Provider ADM Date DC Date Status Disposition Source [facility] Outpatient Encounter [id number] 12/09 [facility] Social History Combined list of available smoking, tobacco, and other social history from Department of Defense and Veterans [facility] facilities. Social History Type Response Date Comment Sourc e Tobacco smoking status NHIS QUIT TOBACCO USE 1-7 YEARS AGO 07/11/2012 [facility] History of tobacco use QUIT TOBACCO USE 1-7 YEARS AGO 01/27/2010 [facility] History of tobacco use CURRENT SMOKER 12/25/2001 [facility] Advance Directives List of completed, amended, or rescinded Advance Directives on record at Department of Veterans [facility] facilities. An actual copy of the Directive is not included. Date Advance Directive Provider Source 07/11/2012 [facility]
== END 2024-10-16 10:29 | disposition home or self-care (01) ==
PROVIDERS: PCP Internal Medicine; Visit Provider Surgery
DX: C44.91 Basal cell carcinoma of skin, unspecified (principal)
CPT/HCPCS: 99024

== ENCOUNTER → 2024-10-16 09:47 | Outpatient (BNVA) | payer MEDICAID, SELFPAY | PROVIDERS: PCP Internal Medicine; Visit Provider Surgery | DX: Z48.1 Encounter for planned postprocedural wound closure (principal); C44.91 Basal cell carcinoma of skin, unspecified | CPT/HCPCS: 99212 ==

== ENCOUNTER 2025-06-29 09:43 | Outpatient (AMB) | payer MEDICARE, MEDICAID, SELFPAY ==
--- NOTE | 2025-06-29 10:00 | A.OFFPC_ITS ---
Vital Signs 06/29/25 10:03 06/29/25 10:57 Height 5 ft 3.39 in Weight 64 lb 8 oz BMI 11.3 BP 145/100 H 140/82 H Blood Pressure Location Rt brachial Rt brachial Position Sitting Sitting Respiration 16 Pulse 77 89 Pulse Source Pulse Oximeter Monitor Temp 97.0 F Temp Source Temporal Artery Scan Pulse Oximetry (%) 92 Oxygen Delivery Method Room Air Intake Visit Reasons: Establish Care/ Dr. 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 Required: No Accompanied by: Self / Same As Patient Allergies No Known Allergies (No Known Allergies*) Allergy (Verified 06/29/25 10:16) Medication List - Last Reconciled 06/29/25 by Naomy Khan PA-C aspirin 81 mg PO DAILY calcium carbonate-vitamin D3 600 mg-5 mcg (200 unit) 1 tab PO DAILY cyclobenzaprine 10 mg PO TID multivitamin 1 tab PO DAILY Tobacco use date assessed: 06/29/25 Fall risk assessment: No Falls in past year Dental Screening Dental Screen Date: 06/29/25 Did you have a dental visit in the last 12 months?: No Did you have a dental problem in the last 6 months where you did not have access to dental care?: No HPI Establish Care/ Dr. Bob HPI Details The patient is a 64-year-old female presenting for a new patient appointment due to her primary was Dr. Bob who retired for a routine follow-up and management of chronic conditions. The patient denies a history of hypertension, with a recent blood pressure reading of 140/82 mmHg, which she attributes to being nervous during the visit. She reports typically having a blood pressure of 120/80 mmHg. The patient has a history of anxiety disorder and obsessive-compulsive disorder, which are managed with ongoing care. She also has a history of avoidant and restrictive food intake disorder, ischemic cardiomyopathy, and non-ST elevation myocardial infarction, having experienced a heart attack followed by a minor heart attack a month later. These cardiac events occurred approximately five years ago. The patient has chronic constipation and urinary retention, which have been managed with medical interventions. She has a history of anemia, basal cell carcinoma, and osteoarthritis, with the latter causing significant discomfort. The patient experienced a femur fracture in the past, which required surgical intervention. She had a blood infection that led to significant weakness and weight loss, requiring hospitalization and blood infusions. This was followed by a period of recovery under the care of Dr. Bob, who helped improve her nutritional status. The patient is declining mammogram and repeat DEXA scan. The patient no longer wants any more colonoscopies. 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 - Service: Served in the [employer]. - Exercise: Enjoys running and runs ever y day. [facility] Medical History (Updated 06/29/25 @ 11:07 by Naomy Khan PA-C) History of sepsis History of femur fracture Osteoarthritis, multiple sites Elevated blood pressure reading Skin lesion Myocardial infarct Hx: UTI (urinary tract infection) (~03/01/24) Cataract Anxiety Basal cell carcinoma Skin lesion of right arm Skin lesion of back Chronic constipation Generalized anxiety disorder OCD (obsessive compulsive disorder) Avoidant and restrictive food intake disorder MSSA bacteremia Sacral pressure ulcer Malnutrition Failure to thrive in adult Normocytic anemia Cachexia Closed intertrochanteric fracture of femur Anemia Surgical History History of surgical removal of skin lesion (~09/29/24) Hx of basal cell carcinoma excision History of surgical removal of skin lesion (~01/23/24) History of hip surgery (11/16/21) H/O foot surgery Family History Father Heart disease Mother No problems noted. Social History Household Members: Family Household Members Other:: mother Housing: House Are you a primary clinical care leader to a significant other at home: No Do you presently have visiting nurse or other home services: No Alcohol intake: never Comment: runs 30 minutes on treadmill daily Patient Tobacco Use Status: Former Tobacco user Tobacco use type: Cigarette Advance Directives Date on File: 11/16/21 service: Yes ([employer]) Current occupational status: retired Cognitive needs: No Hearing needs: No Vision needs: Yes (rx reading glasses) Questionnaire PHQ-9 Over the last 2 weeks, how often have you been bothered by any of the following problems? 1. Little interest or pleasure in doing things: not at all 2. Feeling down, depressed, or hopeless: not at all 3. Trouble falling or staying asleep, or sleeping too much: not at all 4. Feeling tired or having little energy: not at all 5. Poor appetite or overeating: not at all 6. Feeling bad about yourself - or that you are a failure or have let yourself or your family down: not at all 7. Trouble concentrating on things, such as reading the newspaper or watching television: not at all 8. Moving or speaking so slowly that other people could have noticed. Or the opposite - being so fidgety or restless that you have been moving around a lot more than usual: not at all 9. Thoughts that you would be better off or of hurting yourself in some way: not at all Total score: 0 Depression Screening Interpretation: Negative Depression Screening Done: Yes 39553 - PHQ-9 Billing: Yes Source: Developed by Drs. Antelmo Estrada, Leslie Gordon, Preston Walker and colleagues, with an educational britney from [employer]. Thrive Questionnaire Date Thrive assessed: 10/23/23 AUDIT C Alcohol Use Questionnaire (AUDIT-C) 1. How often do you have a drink containing alcohol?: Never 3. How often do you have six or more drinks on one occasion?: Never Total Score: 0 Score Reviewed/Action Taken: No DESTINEE-7 AMB Questionnaire DESTINEE-7 Date DESTINEE - 7 assessed: 06/29/25 Feeling nervous, anxious, or on edge: 0 = Not at all Not being able to stop or control worryin = Not at all Worrying too much about different things: 0 = Not at all Trouble relaxin = Not at all Being so restless that it is hard to sit still: 0 = Not at all Becoming easily annoyed or irritable: 0 = Not at all Feeling afraid as if something awful might happen: 0 = Not at all Total DESTINEE-7 score (0-4 normal; 5-9 mild; 10-14 moderate; 15-21 severe): 0 Source: Developed by Drs. Antelmo Estrada, Leslie Gordon, Preston Walker and colleagues, with an educational britney from [employer]. DESTINEE-7 Assessment Billing DESTINEE-7 Assessment Tool: DESTINEE-7 Assessment 93865 Review of Systems Const Details: - Cardiovascular: Reports hypertension, denies chest pain. - Musculoskeletal: Reports osteoarthritis causing significant discomfort. - Gastrointestinal: Reports chronic constipation. - Genitourinary: Reports urinary retention. - Hematologic: Reports history of anemia. All systems reviewed & are unremarkable except as noted in HPI and below Physical exam (Primary Care) Vital Signs: Last Vital Signs Temp 97.0 F 06/29/25 10:03 Pulse 77 06/29/25 10:03 Resp 16 06/29/25 10:03 BP 145/100 H 06/29/25 10:03 Pulse Ox 92 06/29/25 10:03 Oxygen Delivery Method Room Air 06/29/25 10:03 Care Plan Goal for BP management: <140/90 at Goal BMI result Body Mass Index 11.3 BMI Assessment/Plan discussion: Low BMI Low, Plan discussed: lifestyle, increase calorie intake, dietary and other Tobacco/Smoking Status: Tobacco use Status Tobacco use date assessed 06/29/25 06/29/25 10:12 Patient Tobacco Use Status Former Tobacco user 06/29/25 10:12 Tobacco use type Cigarette 06/29/25 10:12 PHQ-9: PHQ-9 Score PHQ-9: Total score 0 06/29/25 10:18 Depression Screening Interpretation: Negative Thrive Assessment: Date of Thrive Assessment Date Thrive assessed 10/23/23 06/29/25 10:12 Const Other: Appearance: Alert. Oriented X3. No acute distress. Head: Normal external exam. Normocephalic. Atraumatic. Eyes: Pupils are equal, round, and reactive to light. Extraocular movements intact. Conjunctiva and sclera normal. Eyelids normal. Throat: Pharynx normal. Uvula midline. Moist mucous membranes. Neck: Normal inspection. Neck supple. Full range of motion. Cardiovascular: Blood pressure is 140/82. Normal heart rate and rhythm. Heart sound normal. No murmurs noted. Pulses normal throughout. Respiratory: No respiratory distress. Painless inspiration. Breath sounds normal. No wheezes/rales/rhonchi noted. Chest nontender. No accessory muscle usage noted or decreased air movement noted. Abdomen: Soft and nontender. Bowel sounds normal in all 4 quadrants. No distention noted. No organomegaly noted. No visible injury noted. Back: Full range of motion noted. Skin: Skin warm and dry. Normal skin color. Poor skin turgor. No rashes/lesions/lacerations noted. Thin skin noted, prone to skin tears. Extremities: No lower extremity edema. Extremities exhibit normal range of motion. Neuro: Oriented X 3. No motor deficit. No sensory deficit. Reflexes normal. Office Procedures Flu Questionnaire Does the patient have a severe egg allergy?: No Does the patient have severe life threatening allergies?: No Does the patient have a fever or illness today?: No Has the patient ever had Guillain-[place] Syndrome?: No Has the patient ever had any past reaction to a flu shot?: No Immunizations Fluarix [id number] (PF) 45 mcg (15 mcg x 3)/0.5 mL IM syringe Performing Provider: Naomy Khan PA-C [facility] Administered by: LYNN Cross on 06/29/25 10:31 Dose Route Admin Location Dispensed Lot Number Expiration Date NDC Clothes Wringer 0.5 mL IM Left Deltoid 0.5 mL [id number] 04/06/26 [id number] ChiScan VIS Given Date VIS Provided VIS Publication Date 06/29/25 Single Vaccine 24 Eligibility Eligibility Date Funding Source Not [facility] Eligible 06/29/25 Private Results Reviewed Results Reviewed: - Labs: Recent blood work was normal as per Dr. Bob's evaluation. Coding Level of Care Code New Pt Level 4 (34728) Complex EM visit Add On G2211 Diagnoses Elevated blood pressure reading R03.0 Avoidant and restrictive food intake disorder F50.82 Ischemic cardiomyopathy I25.5 Non-ST elevated myocardial infarction I21.4 Chronic constipation K59.09 Urinary retention R33.9 Anemia D64.9 Basal cell carcinoma C44.91 Osteoarthritis, multiple sites M15.9 History of femur fracture Z87.81 History of sepsis Z86.19 OCD (obsessive compulsive disorder) F42.9 Generalized anxiety disorder F41.1 Additional Codes PHQ-9 - 94393 - PHQ-9 Billing: Yes ([id number]) DESTINEE-7 Assessment Billing - DESTINEE-7 Assessment Tool: DESTINEE-7 Assessment 65698 ([id number]) Time Spent (min) 60 Assessment & Plan Assessment & Plan (1) Elevated blood pressure reading: Code(s): R03.0 - Elevated blood-pressure reading, without diagnosis of hypertension Category: Medical Plan: The patient's blood pressure was recorded at 140/82 mmHg during the visit, which she attributed to nervousness. She typically maintains a blood pressure of 120/80 mmHg. (2) Avoidant and restrictive food intake disorder: Code(s): F50.82 - Avoidant/restrictive food intake disorder Category: Medical Plan: The patient has a history of avoidant and restrictive food intake disorder, which is part of her ongoing medical management. (3) Ischemic cardiomyopathy: Code(s): I25.5 - Ischemic cardiomyopathy Category: Medical Plan: The patient has a history of ischemic cardiomyopathy, having experienced a heart attack followed by a minor heart attack a month later. These events occurred approximately five years ago. (4) Non-ST elevated myocardial infarction: Code(s): I21.4 - Non-ST elevation (NSTEMI) myocardial infarction Category: Medical Plan: The patient has a history of non-ST elevation myocardial infarction, which occurred approximately five years ago. (5) Chronic constipation: Code(s): K59.09 - Other constipation Category: Medical Plan: The patient reports chronic constipation, which has been managed with medical interventions. (6) Urinary retention: Code(s): R33.9 - Retention of urine, unspecified Category: Medical Plan: The patient reports urinary retention, which has been managed with medical interventions. (7) Anemia: Code(s): D64.9 - Anemia, unspecified Category: Medical Plan: The patient has a history of anemia, which is part of her ongoing medical management. (8) Basal cell carcinoma: Code(s): C44.91 - Basal cell carcinoma of skin, unspecified Category: Medical Plan: The patient has a history of basal cell carcinoma, which is part of her medical history. (9) Osteoarthritis, multiple sites: Code(s): M15.9 - Polyosteoarthritis, unspecified Category: Medical Plan: The patient reports osteoarthritis, which causes significant discomfort. (10) History of femur fracture: Code(s): Z87.81 - Personal history of (healed) traumatic fracture Category: Medical Plan: The patient experienced a femur fracture in the past, which required surgical intervention. (11) History of sepsis: Code(s): Z86.19 - Personal history of other infectious and parasitic diseases Category: Medical Plan: The patient had a blood infection that led to significant weakness and weight loss, requiring hospitalization and blood infusions. This was followed by a period of recovery under the care of Dr. Beckham, who helped improve her nutritional status. (12) OCD (obsessive compulsive disorder): Code(s): F42.9 - Obsessive-compulsive disorder, unspecified Category: Medical Plan: The patient has a history of obsessive-compulsive disorder, which is managed with ongoing care. (13) Generalized anxiety disorder: Code(s): F41.1 - Generalized anxiety disorder Category: Medical Plan: The patient has a history of anxiety disorder, which is managed with ongoing care. Plan Plan Patient was informed and verbally consented to the use of an ambient scribe for clinic note documentation during this visit. 1. Hypertension The patient's blood pressure was recorded at 140/82 mmHg during the visit, which she attributed to nervousness. She typically maintains a blood pressure of 120/80 mmHg. 2. Anxiety Disorder The patient has a history of anxiety disorder, which is managed with ongoing care. 3. Obsessive-Compulsive Disorder The patient has a history of obsessive-compulsive disorder, which is managed wit h ongoing care. 4. Avoidant And Restrictive Food Intake Disorder The patient has a history of avoidant and restrictive food intake disorder, which is part of her ongoing medical management. 5. Ischemic Cardiomyopathy The patient has a history of ischemic cardiomyopathy, having experienced a heart attack followed by a minor heart attack a month later. These events occurred a pproximately five years ago. 6. Non-St Elevation Myocardial Infarction The patient has a history of non-ST elevation myocardial infarction, which occurred approximately five years ago. 7. Chronic Constipation The patient reports chronic constipation, which has been managed with medical interventions. 8. Urinary Retention The patient reports urinary retention, which has been managed with medical interventions. 9. Anemia The patient has a history of anemia, which is part of her ongoing medical management. 10. Basal Cell Carcinoma The patient has a history of basal cell carcinoma, which is part of her medical history. 11. Osteoarthritis The patient reports osteoarthritis, which causes significant discomfort. 12. Femur Fracture The patient experienced a femur fracture in the past, which required surgical intervention. 13. Blood Infection The patient had a blood infection that led to significant weakness and weight loss, requiring hospitalization and blood infusions. This was followed by a period of recovery under the care of Dr. Bob, who helped improve her nutritional status. During the visit, we discussed the management of the patient's chronic conditions, including hypertension and anxiety disorder. We reviewed her medication regimen, including the use of cyclobenzaprine and the potential switch to a 5 mg tablet for ease of use. The importance of resuming aspirin for cardiac health was emphasized, and the patient agreed to restart it. We also discussed the patient's history of heart attacks and the need for ongoing monitoring of her cardiac status. Orders: Orders Influenza [id number] Immunization Today Z23 - Encounter for immunization C Reactive Protein Today Z00.00 - Encounter for general adult medical examination without abnormal findings Comprehensive [place]. Panel Fast Today Z00.00 - Encounter for general adult medical examination without abnormal findings Liver Panel Today Z00.00 - Encounter for general adult medical examination without abnormal findings Lipid Panel Today Z00.00 - Encounter for general adult medical examination without abnormal findings TSH reflex Free T4 Today Z00.00 - Encounter for general adult medical examination without abnormal findings Complete Blood Count Auto Diff Today Z00.00 - Encounter for general adult medical examination without abnormal findings Hemoglobin A1c Today Z00.00 - Encounter for general adult medical examination without abnormal findings Ferritin Today D64.9 - Anemia, unspecified IRON PROFILE Today D64.9 - Anemia, unspecified Magnesium Today Z00.00 - Encounter for general adult medical examination without abnormal findings Vitamin B12 and Folate Today Z00.00 - Encounter for general adult medical examination without abnormal findings Vitamin D 25-OH Total Today Z00.00 - Encounter for general adult medical examination without abnormal findings UA CC w/rflx Micro + Cult Today Z00.00 - Encounter for general adult medical examination without abnormal findings Medications: New cyclobenzaprine 5 mg PO TID 90 tabs 3RF Patient Instructions: - Continue taking prescribed medications as directed. - Resume taking aspirin daily for heart health. - Schedule follow-up appointments as recommended. - Maintain regular exercise routine, such as daily running. - Monitor blood pressure regularly and report any significant changes.
[2025-06-29 10:03] VITALS: BP 145/100; PULSE 77; RESP 16; TEMP 36.1; O2SAT 92; BMI 11.3
[2025-06-29 10:57] VITALS: BP 140/82; PULSE 89
--- OUTSIDE RECORDS SUMMARY | 2025-06-29 11:31 | XMS_ITS | Clinical Summary ---
Author Organization [address] [facility] Address [address] [place] [address] Phone Care Team Providers Care Executive Search Consultant Name Role Phone Adin Bob MD Primary Care Provider [phone] Allergies No known active allergies Medications multivit-min/iron/ folic acid/K (ADULTS MULTIVITAMIN ORAL) Take by mouth. Active calcium carbonate-cholecal ciferol (Calcium 500 + D) 500 mg-10 mcg (400 unit) per tablet Take by mouth. Active Active Problems Problem Noted Date Diagnosed Date Avoidant or restrictive food intake disorder Basal cell carcinoma 07/29/2024 Cachexia (CMS/HCC V24) 07/29/2024 Deformity of finger of right hand 07/29/2024 DESTINEE (generalized anxiety disorder) 07/29/2024 MSSA bacteremia 07/29/2024 Normocytic anemia 07/29/2024 Obsessive compulsive disorder 07/29/2024 Spontaneous rupture of extensor tendon of left h and 07/29/2024 Spontaneous rupture of extensor tendon of right hand 07/29/2024 Unspecified protein-calorie malnutrition (CMS/HC C V24) 07/29/2024 Medical History Medical History Date Comments Basal cell carcinoma DX:Basal ce ll carcinoma Skin lesion of right arm DX:Skin lesion of right arm Skin lesion of back DX:Skin lesi on of back Chronic constipation DX:Chronic constipation DESTINEE (generalized anxiety disorder) DX:DESTINEE (generalized anxiety disorder) OCD (obsessive compulsive disorder) DX:OCD (obsessive compulsive disorder) Avoidant and restrictive ramos d intake disorder DX:Avoidant and restrictive food intake disorder MSSA bacteremia DX:MSSA bacterem ia Sacral pressure ulcer DX:Sacral pressure ulcer Malnutrition (CMS/HCC V24) DX:Ma lnutrition ([facility]) Failure to thrive in adult DX:Fa ilure to thrive in adult Normocytic anemia DX:Normocytic anemia [place] [place] DX:Cachex ia ([facility]) Closed intertrochanteric fra cture of femur [place] [place], [facility] [place] DX:Closed intertrocha nteric fracture of femur ([facility]) Anemia DX:Anemia Social History Tobacco Use Types Packs/Day Years Used Date Smoking Tobacco: Never Assessed Comments Unknown Sex and Gender Information Value Date Recorded Sex Assigned at Not on file Legal Sex Female 1:04 AM EST Gender Identity Not on file Sexual Orientation Not on file Obstetrics History Last Filed Vital Signs Vital Sign Reading Time Taken Comments Blood Pressure - - Pulse - - Temperature - - Respiratory Rate - - Oxygen Saturation - - Inhaled Oxygen Concentration - - Weight 36.3 kg (80 lb) 07/29/2024 10:55 AM EDT Height 160 cm (5' 3 ) 07/29/2024 10:55 AM EDT Body Mass Index 14.17 07/29/2024 10:55 AM EDT Plan of Treatment Health Maintenance Due Date Last Done Comments Breast Cancer Screening 1960 Zoster Vaccines (1 of 2) 1978 Cervical Cancer Screening: Pap Smear 1980 Pneumococcal Vaccine: 50+ Years (1 of 1 - PCV) 2009 DTaP,Tdap,and Td Vaccines (3 - Td or Tdap) 01/06/2022 01/07/2012, 01/07/2012 Cholesterol Screening (Lipid Panel) 09/10/2022 Colorectal Cancer Screening: Colonoscopy 09/10/2022 Hepatitis C Screening 09/10/2022 Osteoporosis Screening (Bone Density Screening) 09/10/2022 Social Influencers of Health Screening 09/10/2022 Falls Risk Assessment 2024 Depression Screening 10/08/2024 COVID-19 Vaccine ( season) 2025 09/07/2023, 09/09/2021, 12/14/2020, Additional history exists Influenza Vaccine (#1) 2025 , 08/21/2023, 06/20/2022, Additional history exists RSV Immunization Adult Patients (1 - 1-dose 75+ series) 2034 HIB Vaccines Aged Out No longer eligi ble based on patient's age to complete this topic HPV Vaccines Aged Out No longer eligi ble based on patient's age to complete this topic Hepatitis A Vaccines Aged Out No long er eligible based on patient's age to complete this topic Hepatitis B Vaccines Aged Out No long er eligible based on patient's age to complete this topic IPV Vaccines Aged Out No longer eligi ble based on patient's age to complete this topic MMR Vaccines Aged Out No longer eligi ble based on patient's age to complete this topic Meningococcal ACWY Vaccine Aged Out N o longer eligible based on patient's age to complete this topic Meningococcal B Vaccine Aged Out No l onger eligible based on patient's age to complete this topic RSV Immunization Patients Under 20 months Aged Out No longer eligible based on patient's age to complete this topic Varicella Vaccines Aged Out No longer eligible based on patient's age to complete this topic Goals Goal Patient Goal Type Associated Problems Recent Progress Patient-Stated? Author <enter goal here> General Yes Nuria Pope, OT Note: HAVE LESS PAIN WITH DAILY TASKS RIGHT HAND GREATER THAN LEFT Insurance MEDICAID - [place] Care Teams Executive Search Consultant Relationship Specialty Start Date End Date Adin Bob MD [address], [place] PCP - General 07/03/24
--- OUTSIDE RECORDS SUMMARY | 2025-06-29 11:31 | XMS_ITS ---
Author Organization [facility] Care Team Providers Care Wafer Line Worker Name Role Phone Keely Braxton Unavailable Unavailable Dina Bland Unavailable Unavailable Uma Pierce Unavailable Unavailable Maintahira, Keturah Unavailable Unavailable Allergies and adverse reactions No Known Allergies Care Team Name Role Address Phone Organization Dates Dina Bland PCP [address] [facility] [address], [place], [address], [facility] (Office): : [facility] 12/22/2021 - 01/03/2022 [place], [address], [facility] (Office): : [facility] 12/22/2021 - 01/03/2022 Uma Pierce [address], [address], [place] (Office): [facility] 12/22/2021 - 01/03/2022 Keturah Maintahira [address], [address], [facility] (Office): : [facility] 12/22/2021 - 01/03/2022 Goals Section Goals Description Status Target Date I hope that I can be success fully resuscitated in the event my heart stops. Active 03/25/2022 My family and I will participate in my discharge planning. Active 03/25/2022 The resident will maintain a dequate nutritional status as evidenced by maintaining weight within 5 % of CBW, no s/sx of malnutrition, and consuming at least 75% of at least 3 meals daily through review date. Active 03/25/2022 Will Pressure ulcer will zoltan w signs of healing and remain free from infection by/through review date. Active 03/25/2022 Will be/remain free of psych otropic drug related complications, including movement disorder, discomfort, hypotension, gait disturbance, constipation/impaction or cognitive/behavioral impairment through review date. Active 03/25/2022 Will improve current level of function through n ext review Active 03/25/2022 Will not sustain serious injury through the revi ew date. Active 03/25/2022 Will remain free from skin b reakdown due to incontinence and brief use through the review date. Active 03/25/2022 Mental Status Section Date Assessment Total Score Description 12/27/2021 BIMS 15 cognitively int act PHQ-9 01 minimal depress ion Plan of Treatment Section Interventions Intervention Code Code System Display Name Proposed D ate Problems Problem # Description Date of onset Resolved Date Code CodeSystem Concern Status 1 ANEMIA, UNSPECIFIED 12/21/[address] active 2 AVOIDANT/RESTRICTIV E FOOD INTAKE DISORDER 12/21/[address] active 3 BACTEREMIA 12/21/[id number] active 4 GENERALIZED ANXIETY DISORDER 12/21/[address] active 5 METHICILLIN SUSCEPTIBLE STAPHYLOCOCCUS AUREUS INFECTION THE CAUSE OF DISEASES CLASSIFIED ELSEWHERE 12/21/[address] active 6 NON-PRESSURE CHRONIC ULCER OF BACK WITH UNSPECIFIED SEVERITY 12/21/[address] active 7 OBSESSIVE-COMPULSIV E DISORDER, UNSPECIFIED 12/21/[address] active 8 PERSONAL HISTORY OF (HEALED) TRAUMATIC FRACTURE 12/21/[address] active 9 UNSPECIFIED PROTEIN-CALORIE MALNUTRITION 12/21/[address] active Reason for Referral No Reasons for Referral Entered Social History Social History Observation Description Start Date End Date Code Code System Current Smoking Status Tobacco smoking consumption unknown 413387256 SNOMED CT Sex Assigned At Female 1960 62893-2 [facility] Gender Identity Sexual Orientation Vital Signs Code Code System Vitals Name Values and Units Timing Information 9279-1 [facility] Respiratory Rate Value=18.0 Units=/m in 01/04/2022 8462-4 [facility] Blood Pressure-Diastolic Value=60 Un its=mmHg 01/04/2022 8480-6 [facility] Blood Pressure-Systolic Xqhho=179 Un its=mmHg 01/04/2022 8310-5 [facility] Body Temperature Value=98.1 Units= F 01/04/2022 8867-4 [facility] Heart rate Value=68.0 Units=/min 77850-8 [facility] O2 % BldC Oximetry Value=98.0 Units= % 01/04/2022 31385-0 [facility] Pain Level Value=0.0 12/30/2021 8302-2 [facility] Height Value=66.0 Units=Inches 12/22/2021
== END 2025-06-29 10:33 | disposition home or self-care (01) ==
LOC: HO.HMCSH 09:43
PROVIDERS: PCP Physician Assistant Medical; Visit Provider Physician Assistant Medical
DX: R03.0 Elevated blood-pressure reading, without diagnosis of hypertension (principal); F50.82 Avoidant/restrictive food intake disorder; I25.5 Ischemic cardiomyopathy; I21.4 Non-ST elevation (NSTEMI) myocardial infarction; K59.09 Other constipation; R33.9 Retention of urine, unspecified; D64.9 Anemia, unspecified; C44.91 Basal cell carcinoma of skin, unspecified; M15.9 Polyosteoarthritis, unspecified; Z87.81 Personal history of (healed) traumatic fracture; Z86.19 Personal history of other infectious and parasitic diseases; F42.9 Obsessive-compulsive disorder, unspecified; F41.1 Generalized anxiety disorder; Z23 Encounter for immunization

== ENCOUNTER → 2025-06-29 09:43 | Outpatient (BNVA) | payer MEDICARE, MEDICAID, SELFPAY | PROVIDERS: PCP Physician Assistant Medical; Visit Provider Physician Assistant Medical | DX: I10 Essential (primary) hypertension (principal); F42.9 Obsessive-compulsive disorder, unspecified; F50.82 Avoidant/restrictive food intake disorder; I25.5 Ischemic cardiomyopathy; I25.2 Old myocardial infarction; R03.0 Elevated blood-pressure reading, without diagnosis of hypertension; K59.09 Other constipation; R33.9 Retention of urine, unspecified; D64.9 Anemia, unspecified; C44.91 Basal cell carcinoma of skin, unspecified; M15.9 Polyosteoarthritis, unspecified; F41.1 Generalized anxiety disorder; Z23 Encounter for immunization; Z86.19 Personal history of other infectious and parasitic diseases; Z87.81 Personal history of (healed) traumatic fracture | CPT/HCPCS: 90471; 90656; 96127; 99202 ==

== ENCOUNTER 2025-07-10 13:13 | Outpatient (REF) | payer MEDICARE, MEDICAID, SELFPAY ==
[2025-07-10 16:19] LABS: MANUAL DIFF FLAG NO
[2025-07-10 16:27] LABS: Hematocrit 37.2 % (37.0-47.0); Hemoglobin 12.5 g/dl (12.0-16.0); Imm Gran Abs Auto 0.03 X10*3/uL (0.00-0.03); Imm Gran Pct Auto 0.3 % (0.0-0.4); Lymphocytes Absolute Auto 1.4 X10*3/uL (1.2-4.9); Mean Corpuscular HGB Conc 33.6 g/dl (31.0-35.0); Mean Corpuscular Hemoglobin 29.3 pg (27.0-33.0); Mean Corpuscular Volume 87.3 fL (80.0-98.0); NRBC Abs Auto 0.000 X10*3/uL (0.0-0.012); NRBC Pct Auto 0.0 /100WBC (0.0-0.2); Platelet Count 297 X10*3/uL (160-400); Red Blood Count 4.26 X10*6/uL (4.20-5.50); White Blood Count 9.5 X10*3/uL (4.8-10.8)
[2025-07-10 16:43] LABS: Alanine Aminotransferase 45 U/L (0-31); Albumin Level 4.0 g/dL (3.5-5.0); Alkaline Phosphatase 90 U/L (39-117); Anion Gap 10 (12-20); Aspartate Amino Transferase 75 U/L (5-31); Blood Urea Nitrogen 11 mg/dL (9-16); Calcium 9.4 mg/dL (8.4-10.2); Carbon Dioxide 33 mmol/L (22-29); Chloride 96 mmol/L (96-108); Estimated Glomerular Filt Rate > 60; Iron 76 mcg/dL (30-160); Magnesium 1.8 mg/dL (1.6-2.6); Percent Iron Saturation 25 % (15-50); Potassium 4.5 mmol/L (3.3-5.1); Sodium 134 mmol/L (135-145); Total Iron Binding Capacity 302 mcg/dL (228-428); Total Protein 7.1 g/dL (6.5-8.0); Unsaturated Iron Binding 226 ug/dL
[2025-07-10 17:00] LABS: Appearance Urine Clear; Glucose Urine UA Negative (Negative); PH 7.0 (5.0-9.0); Specific Gravity - Urine 1.010 (1.005-1.025); UMIC TRIGGER UACC YES
[2025-07-10 17:06] LABS: Ferritin 52 ng/mL (10-250)
[2025-07-10 17:25] LABS: Folate 17.9 ng/mL (> or = 4.0); Vitamin B12 1038 pg/mL (200-900)
[2025-07-10 17:56] LABS: Free T4 (Free Thyroxine) 0.98 ng/dL (0.71-1.85)
== END 2025-07-10 13:14 | disposition home or self-care (01) ==
LOC: HO.HMGCLDS 13:13
PROVIDERS: PCP Physician Assistant Medical; Visit Provider Physician Assistant Medical
DX: Z00.00 Encounter for general adult medical examination without abnormal findings (principal); D64.9 Anemia, unspecified; R62.7 Adult failure to thrive; E16.2 Hypoglycemia, unspecified; Z68.1 Body mass index [BMI] 19.9 or less, adult; E46 Unspecified protein-calorie malnutrition; F41.1 Generalized anxiety disorder
CPT/HCPCS: 36415; 80053; 81001; 81003; 82248; 82306; 82607; 82728; 82746; 83036; 83525; 83540; 83735; 84206; 84439; 84443; 84681; 85025; 86140; 96127; 99212

== ENCOUNTER 2025-07-10 13:13 | Outpatient (AMB) | payer MEDICARE, MEDICAID, SELFPAY ==
--- NOTE | 2025-07-10 13:11 | A.OFFPC_ITS ---
Vital Signs 07/10/25 13:12 07/10/25 14:50 Height 5 ft 3.39 in Weight 65 lb 6 oz BMI 11.4 BP 178/97 H 173/84 H Blood Pressure Location Lt brachial Lt brachial Position Sitting Respiration 16 Pulse 69 Temp 97 F Temp Source Temporal Artery Scan Intake Visit Reasons: low blood sugar Customer Program Specialist Required: No Accompanied by: Self / Same As Patient Allergies No Known Allergies (No Known Allergies*) Allergy (Verified 07/10/25 14:50) Medication List - Last Reconciled 07/10/25 by Naomy Khan PA-C blood sugar diagnostic (FreeStyle Lite Strips) Check glucose 3 times a day with meals calcium carbonate-vitamin D3 600 mg-5 mcg (200 unit) 1 tab PO DAILY cyclobenzaprine 5 mg PO TID food supplemt, lactose-reduced (Ensure Original) 1 ea PO BID glucose 12 grams (3 x 4 gram) PO Q15M PRN multivitamin 1 tab PO DAILY Tobacco use date assessed: 07/10/25 Dental Screening Dental Screen Date: 07/10/25 Did you have a dental visit in the last 12 months?: No HPI low blood sugar HPI Details The patient is a 64-year-old female presenting with hypoglycemia. She reports experiencing low blood sugar levels, particularly after exercising, with readings as low as 50 mg/dL. The patient has been consuming a consistent diet, including coffee, multivitamins, calcium, a muffin, Ensure, scrambled eggs, and jelly toast, but has noted a recent inability to complete her usual exercise routine due to lightheadedness. The patient has a history of anxiety, which she believes may contribute to elevated blood pressure readings during episodes of hypoglycemia. She has been using glucose tablets to manage her low blood sugar and has been advised to increase her intake of Ensure and other carbohydrate-rich foods. The patient has previously been hospitalized and has consulted with steamer tender, although she does not currently see one regularly. She expresses difficulty in maintaining adequate nutritional intake due to a lack of appetite and finds it challenging to consume large meals. Social History - Exercise: Engages in treadmill exercis e daily, typically for 30 minutes in the morning and 30-45 minutes in the afternoon. - Nutrition: Consumes a diet including c offee, multivitamins, calcium, a muffin, Ensure, scrambled eggs, and jelly toast. Reports difficulty in maintaining adequate nutritional intake due to lack of appetite. - Family Status: Lives with her 90-year- old mother, whom she cares for. [facility] Medical History (Updated 07/10/25 @ 14:54 by Naomy Khan PA-C) Hypoglycemia Underweight (BMI < 18.5) Severely underweight adult History of sepsis History of femur fracture Osteoarthritis, multiple sites Elevated blood pressure reading Skin lesion Myocardial infarct Hx: UTI (urinary tract infection) (~03/01/24) Cataract Anxiety Basal cell carcinoma Skin lesion of right arm Skin lesion of back Chronic constipation Generalized anxiety disorder OCD (obsessive compulsive disorder) Avoidant and restrictive food intake disorder MSSA bacteremia Sacral pressure ulcer Malnutrition Failure to thrive in adult Normocytic anemia Cachexia Closed intertrochanteric fracture of femur Anemia Surgical History History of surgical removal of skin lesion (~09/29/24) Hx of basal cell carcinoma excision History of surgical removal of skin lesion (~01/23/24) History of hip surgery (11/16/21) H/O foot surgery Family History Father Heart disease Mother No problems noted. Social History Household Members: Family Household Members Other:: mother Housing: House Are you a primary healthcare receptionist to a significant other at home: No Do you presently have visiting nurse or other home services: No Alcohol intake: never Comment: runs 30 minutes on treadmill daily Patient Tobacco Use Status: Former Tobacco user Tobacco use type: Cigarette Advance Directives Date on File: 11/16/21 service: Yes ([email or web address]) Current occupational status: retired Cognitive needs: No Hearing needs: No Vision needs: Yes (rx reading glasses) Questionnaire PHQ-9 Over the last 2 weeks, how often have you been bothered by any of the following problems? 1. Little interest or pleasure in doing things: not at all 2. Feeling down, depressed, or hopeless: not at all 3. Trouble falling or staying asleep, or sleeping too much: not at all 4. Feeling tired or having little energy: not at all 5. Poor appetite or overeating: not at all 6. Feeling bad about yourself - or that you are a failure or have let yourself or your family down: not at all 7. Trouble concentrating on things, such as reading the newspaper or watching television: not at all 8. Moving or speaking so slowly that other people could have noticed. Or the opposite - being so fidgety or restless that you have been moving around a lot more than usual: not at all 9. Thoughts that you would be better off or of hurting yourself in some way: not at all Total score: 0 Depression Screening Interpretation: Negative Depression Screening Done: Yes 15777 - PHQ-9 Billing: Yes Source: Developed by Drs. Antelmo Estrada, Leslie Gordon, Preston Walker and colleagues, with an educational britney from [employer]. Thrive Questionnaire Date Thrive assessed: 07/10/25 What is your living situation today?: I have a steady place to live Within the past 12 months, did the food you bought not last and you didn't have the money to get more?: Never true Within the past 12 months, did you worry whether your food would run out before you got money to buy more?: Never true Do you have trouble paying for medicines?: No Do you have trouble getting transportation to medical appointments?: No Do you have trouble paying your heating and electricity bill?: No Do you have trouble taking care of your child, family member or friend?: No Do you have trouble with day-to-day activities such as bathing, preparing meals, shopping, managing finances, etc.?: Yes Are you currently unemployed and looking for a job?: No Are you interested in more education?: No Please select the resources that you would like help with: None THRIVE Score: 0 AUDIT C Alcohol Use Questionnaire (AUDIT-C) 1. How often do you have a drink containing alcohol?: Never 3. How often do you have six or more drinks on one occasion?: Never Total Score: 0 Score Reviewed/Action Taken: No DESTINEE-7 AMB Questionnaire DESTINEE-7 Date DESTINEE - 7 assessed: 07/10/25 Feeling nervous, anxious, or on edge: 0 = Not at all Not being able to stop or control worryin = Not at all Worrying too much about different things: 0 = Not at all Trouble relaxin = Not at all Being so restless that it is hard to sit still: 0 = Not at all Becoming easily annoyed or irritable: 0 = Not at all Feeling afraid as if something awful might happen: 0 = Not at all Total DESTINEE-7 score (0-4 normal; 5-9 mild; 10-14 moderate; 15-21 severe): 0 Source: Developed by Drs. Antelmo Estrada, Leslie Gordon, Preston Walker and colleagues, with an educational britney from [employer]. DESTINEE-7 Assessment Billing DESTINEE-7 Assessment Tool: DESTINEE-7 Assessment 80917 Review of Systems Const Details: - Endocrine: Reports hypoglycemia with blood sugar levels as low as 50 mg/dL. - Neurological: Reports lightheadedness associated with low blood sugar levels. - Psychological: Reports anxiety, particularly related to hypoglycemia and blood pressure readings. All systems reviewed & are unremarkable except as noted in HPI and below Physical exam (Primary Care) Vital Signs: Last Vital Signs Temp 97 F 07/10/25 13:12 Resp 16 07/10/25 13:12 BP 178/97 H 07/10/25 13:12 Care Plan Goal for BP management: <140/90 patient will return in 1 month or sooner for blood pressure check BMI result Body Mass Index 11.4 BMI Assessment/Plan discussion: [place] (Had extensive conversation with the patient today regarding this patient declining referrals and she does not want to go to the emergency department she understands her risks) BMI Low, Plan discussed: lifestyle, increase calorie intake, dietary and other Tobacco/Smoking Status: Tobacco use Status Tobacco use date assessed 07/10/25 07/10/25 13:16 Patient Tobacco Use Status Former Tobacco user 07/10/25 13:16 Tobacco use type Cigarette 07/10/25 13:16 PHQ-9: PHQ-9 Score PHQ-9: Total score 0 07/10/25 13:16 Depression Screening Interpretation: Negative Thrive Assessment: Date of Thrive Assessment Date Thrive assessed 07/10/25 07/10/25 13:16 Const Other: Appearance: Alert. Oriented X3. No acute distress. Head: Normal external exam. Normocephalic. Atraumatic. Eyes: Pupils are equal, round, and reactive to light. Extraocular movements intact. Conjunctiva and sclera normal. Eyelids normal. Throat: Pharynx normal. Uvula midline. Moist mucous membranes. Neck: Normal inspection. Neck supple. Full range of motion. Cardiovascular: Blood pressure is a little bit high, likely due to anxiety. Normal heart rate and rhythm. Heart sound normal. No murmurs noted. Pulses normal throughout. Respiratory: No respiratory distress. Painless inspiration. Back: Full range of motion noted. Skin: Skin warm and dry. Normal skin color. Normal skin turgor. No rashes/lesions/lacerations noted. Extremities: Extremities exhibit normal range of motion. Coding Level of Care Code Est Pt Level 4 (11130) Complex EM visit Add On G2211 Diagnoses Hypoglycemia E16.2 Underweight (BMI < 18.5) R63.6; Z68.1 Severely underweight adult R63.6 Malnutrition E46 Generalized anxiety disorder F41.1 Additional Codes DESTINEE-7 Assessment Billing - DESTINEE-7 Assessment Tool: DESTINEE-7 Assessment 40518 ([id number]) PHQ-9 - 28505 - PHQ-9 Billing: Yes ([id number]) Time Spent (min) 50 Assessment & Plan Assessment & Plan (1) Hypoglycemia: Code(s): E16.2 - Hypoglycemia, unspecified Category: Medical Plan: The patient is advised to consume glucose tablets when blood sugar levels fall below 70 mg/dL, with a recommendation to take 3 to 4 tablets and recheck glucose levels after 15 minutes. If levels remain low, the patient should repeat the process and consume juice or a tablespoon of honey or sugar. The patient is also encouraged to increase her intake of carbohydrate-rich foods and Ensure to maintain stable glucose levels. (2) Underweight (BMI < 18.5): Code(s): R63.6 - Underweight; Z68.1 - Body mass index [BMI] 19.9 or less, adult Category: Medical Plan: The patient is advised to consume glucose tablets when blood sugar levels fall below 70 mg/dL, with a recommendation to take 3 to 4 tablets and recheck glucose levels after 15 minutes. If levels remain low, the patient should repeat the process and consume juice or a tablespoon of honey or sugar. The patient is also encouraged to increase her intake of carbohydrate-rich foods and Ensure to maintain stable glucose levels. (3) Severely underweight adult: Code(s): R63.6 - Underweight Category: Medical Plan: The patient is advised to consume glucose tablets when blood sugar levels fall below 70 mg/dL, with a recommendation to take 3 to 4 tablets and recheck glucose levels after 15 minutes. If levels remain low, the patient should repeat the process and consume juice or a tablespoon of honey or sugar. The patient is also encouraged to increase her intake of carbohydrate-rich foods and Ensure to maintain stable glucose levels. (4) Malnutrition: Code(s): E46 - Unspecified protein-calorie malnutrition Category: Medical Plan: The patient is advised to consume glucose tablets when blood sugar levels fall below 70 mg/dL, with a recommendation to take 3 to 4 tablets and recheck glucose levels after 15 minutes. If levels remain low, the patient should repeat the process and consume juice or a tablespoon of honey or sugar. The patient is also encouraged to increase her intake of carbohydrate-rich foods and Ensure to maintain stable glucose levels. (5) Generalized anxiety disorder: Code(s): F41.1 - Generalized anxiety disorder Category: Medical Plan: The patient is reassured that her elevated blood pressure readings are likely due to anxiety related to hypoglycemia. She is advised to monitor her blood pressure and manage anxiety through lifestyle modifications and dietary adjustments. Plan Plan Patient was informed and verbally consented to the use of an ambient scribe for clinic note documentation during this visit. 1. Hypoglycemia The patient is advised to consume glucose tablets when blood sugar levels fall below 70 mg/dL, with a recommendation to take 3 to 4 tablets and recheck glucose levels after 15 minutes. If levels remain low, the patient should repeat the process and consume juice or a tablespoon of honey or sugar. The patient is also encouraged to increase her intake of carbohydrate-rich foods and Ensure to maintain stable glucose levels. 2. Anxiety The patient is reassured that her elevated blood pressure readings are likely due to anxiety related to hypoglycemia. She is advised to monitor her blood pressure and manage anxiety through lifestyle modifications and dietary adjustments. I discussed with the patient the importance of managing her hypoglycemia by using glucose tablets and adjusting her diet to include more carbohydrates. We also talked about the potential impact of anxiety on her blood pressure and the need for regular monitoring. I recommended follow-up blood work to assess her glucose levels and ensure her nutritional intake is adequate. I explained to the patient having hypoglycemia is very dangerous and if her blood sugar drops below 70 consistently she will need to go to the emergency department. She declined emergency department at this time and she understands the risks. She also declined nutrition referral. Orders: Orders Comprehensive Met. Panel Today Z00.00 - Encounter for general adult medical examination without abnormal findings Hemoglobin A1c Today Z00.00 - Encounter for general adult medical examination without abnormal findings C Peptide Today R62.7 - Adult failure to thrive Insulin Today R62.7 - Adult failure to thrive Proinsulin Today R62.7 - Adult failure to thrive Medications: New blood sugar diagnostic (FreeStyle Lite Strips) Check glucose 3 times a day with meals 100 ea 1RF E11.9 - Type 2 diabetes mellitus without complications glucose If Glucose <70 take 3-4 tablets and recheck blood glucose 15-30 minutes later 12 grams (3 x 4 gram) PO Q15M PRN 90 tabs 3RF hypoglycemia R63.6 - Underweight, Z68.1 - Body mass index [BMI] 19.9 or less, adult food supplemt, lactose-reduced (Ensure Original) 1 ea PO BID 5,688 mL 6RF E46 - Unspecified protein-calorie malnutrition, F50.82 - Avoidant/restrictive food intake disorder, R62.7 - Adult failure to thrive, R63.6 - Underweight, Z68.1 - Body mass index [BMI] 19.9 or less, adult Patient Instructions: - Take glucose tablets when blood sugar is below 70 mg/dL and recheck after 15 minutes. - Increase intake of carbohydrate-rich foods and Ensure to maintain stable glucose levels. - Monitor blood pressure regularly and manage anxiety through lifestyle modifications. - Follow up with blood work as recommended.
[2025-07-10 13:12] VITALS: BP 178/97; RESP 16; TEMP 36.1; BMI 11.4
--- OUTSIDE RECORDS SUMMARY | 2025-07-10 13:33 | XMS_ITS | Clinical Summary ---
Author Organization [address] [facility] Address [address] [place] [address] Phone Care Team Providers Care Office Services Clerk Name Role Phone Adin Bob MD Primary Care Provider [phone] Allergies No known active allergies Medications multivit-min/iron/ [...] pressure ulcer Malnutrition (CMS/HCC V24) DX:[place] lnutrition ([facility] [place]) Failure to thrive in adult DX:Fa ilure to thrive in adult Normocytic anemia DX:Normocytic anemia Cachexia [place] [place] [place] DX:Cachex ia ([facility] [place]) Closed intertrochanteric fra cture of femur ([facility] [place]24, [facility] [place] V28) DX:Closed intertrocha nteric fracture of femur ([facility] [place]) Anemia DX:Anemia Social History Tobacco Use Types [...] Last Done Comments Breast Cancer Screening 1959 Colorectal Cancer Screening: Colonoscopy 1959 Zoster Vaccines (1 of 2) 1978 Cervical Cancer Screening: Pap Smear 1980 Pneumococcal Vaccine: 50+ Years (1 of 1 - PCV) 2009 DTaP,Tdap,and Td Vaccines (3 - Td or Tdap) 01/06/2022 01/07/2012, 01/07/2012 Cholesterol Screening (Lipid Panel) 09/10/2022 Hepatitis C Screening 09/10/2022 Osteoporosis Screening [...] LEFT Insurance MEDICAID - [place] Care Teams Office Services Clerk Relationship Specialty Start Date End Date Adin Bob MD [address], [place] PCP - General 07/03/24
[2025-07-10 14:50] VITALS: BP 173/84; PULSE 69
== END 2025-07-10 15:02 | disposition home or self-care (01) ==
LOC: HO.HMCSH 13:13
PROVIDERS: PCP Physician Assistant Medical; Visit Provider Physician Assistant Medical
DX: E16.2 Hypoglycemia, unspecified (principal); R63.6 Underweight; Z68.1 Body mass index [BMI] 19.9 or less, adult; E46 Unspecified protein-calorie malnutrition; F41.1 Generalized anxiety disorder

== ENCOUNTER 2025-07-11 11:22 | Emergency (ER) | payer MEDICARE, SELFPAY ==
--- NOTE | ~2025-07-11 | XR_ITS ---
CLINICAL HISTORY: fall with hip femur pain 2 view right femur Comparison: None provided Findings: The proximal portion of the right femur was not included in this examination however it was visualized on the concurrent right hip x-ray series. There is no acute fracture of visualized portions of the right femur. The study did not evaluate for knee effusion secondary to positioning. Limited evaluation of the patellofemoral joint secondary to positioning. Chondrocalcinosis is present within the medial and lateral knee compartments. No radiopaque foreign body. IMPRESSION: 1. No acute bony abnormality within visualized portions of the right femur. The proximal femur was not imaged. This document has been electronically signed by: Patricia Fernandez MD on 07/11/2025 14:10:35
--- NOTE | ~2025-07-11 | XR_ITS ---
CLINICAL HISTORY: fall, landed on R hip 3 view, pelvis and right hip Comparison: None provided Findings: There is an avulsion fracture of the greater trochanter of the right femur involving a 3 cm fragment. Mild displacement at the fracture site. No dislocation. Prior open reduction internal fixation of the left femur with incomplete visualization of hardware. Mild arthritic changes. The soft tissues are unremarkable. IMPRESSION: Acute fracture of the right greater trochanter. This document has been electronically signed by: Patricia Fernandez MD on 07/11/2025 14:11:26
[2025-07-11 11:25] VITALS: PULSE 64; O2SAT 100
[2025-07-11 11:33] VITALS: BP 148/94; PULSE 66; RESP 18; TEMP 35.9; O2SAT 100; BMI 13.3
[2025-07-11] MEDS: Glucose Gel 15 GM GEL..GRAM. PO (11:45)
--- NOTE | 2025-07-11 11:47 | ED.GENADULT ---
HPI - General Adult General Chief complaint: Fall Stated complaint: Fall, -HS, -Thinners, right hip pain Time Seen by Provider: 07/11/25 11:34 Source: patient, RN notes reviewed and old records reviewed Mode of arrival: EMS Limitations: no limitations History of Present Illness ED Provider: SHABBIR Weinstein HPI narrative: 64-year-old female with medical history of osteoarthritis, anxiety, OCD, avoided and restrictive food intake disorder, cachexia, anemia, presents to the ED by EMS after mechanical fall this morning. Patient states she was shopping at [employer] when she tripped over grocery shelving falling onto her right elbow, right hip, right knee. Patient denies head strike or loss of consciousness. Patient denies prodrome of dizziness, lightheadedness or syncope prior to fall. Patient denies nausea, vomiting or headache after the fall. Patient reports a recent history of hypoglycemia, saw her PCP yesterday for hypoglycemia and was prescribed glucose tablets. In EMS in route to the hospital POC was 36. MD complaint: hypoglycemia, mechanical fall Related Data Home Medications ?Medication ?Instructions ?Recorded ?Confirmed multivitamin 1 tab PO DAILY 01/09/24 07/10/25 calcium 600 mg (as 1 tab PO DAILY 07/04/24 07/10/25 carbonate)-vitamin D3 5 mcg (200 unit) tablet Previous Rx's ?Medication ?Instructions ?Recorded cyclobenzaprine 5 mg tablet 5 mg PO TID #90 tabs 06/29/25 blood sugar diagnostic (FreeStyle #100 ea 07/10/25 Lite Strips) food supplemt, lactose-reduced 1 ea PO BID #5,688 mL 07/10/25 0.04 gram-1.05 kcal/mL oral liquid (Ensure Original) glucose 4 gram chewable tablet 12 g (3 x 4 gram) PO Q15M PRN 07/10/25 hypoglycemia #90 tabs Allergies Allergy/AdvReac Type Severity Reaction Status Date / Time No Known Allergies (No Known Allergy Verified 07/11/25 11:37 Allergies*) Review of Systems Review of Systems: CONST: Negative for fever, body aches and chills. HENT: Negative for neck pain/stiffness, headache, congestion, sore throat, swelling. EYES: Negative for discharge/pain or vision changes. RESP: Negative for cough/hemoptysis and shortness of breath. CV: Negative chest pain, difficulty breathing, palpitations. ABD: Negative pain, nausea, vomiting. : Negative increase frequency, dysuria, blood in urine or stool. MUSC: Negative for muscle aches, edema. POS pain of L hip SKIN: Negative rash, lesions/sores. NEURO: Negative headache, dizziness, weakness. Yes all other systems are reviewed and are negative PMFSH Past Medical History Attestation statement: The following information was validated with the patient. Source: old records reviewed and nursing notes reviewed Medical History (Updated 07/11/25 @ 15:13 by Aurora Weinstein PA-C) Hypoglycemia Underweight (BMI < 18.5) Severely underweight adult History of sepsis History of femur fracture Osteoarthritis, multiple sites Elevated blood pressure reading Skin lesion Myocardial infarct Hx: UTI (urinary tract infection) (~03/01/24) Cataract Anxiety Basal cell carcinoma Skin lesion of right arm Skin lesion of back Chronic constipation Generalized anxiety disorder OCD (obsessive compulsive disorder) Avoidant and restrictive food intake disorder MSSA bacteremia Sacral pressure ulcer Malnutrition Failure to thrive in adult Normocytic anemia Cachexia Closed intertrochanteric fracture of femur Anemia Surgical History History of surgical removal of skin lesion (~09/29/24) Hx of basal cell carcinoma excision History of surgical removal of skin lesion (~01/23/24) History of hip surgery (11/16/21) H/O foot surgery Family History Family History Father Heart disease Mother No problems noted. Social History Social History Household Members: Family Household Members Other:: mother Housing: House Are you a primary direct care provider to a significant other at home: No Do you presently have visiting nurse or other home services: No Alcohol intake: never Comment: runs 30 minutes on treadmill daily Patient Tobacco Use Status: Former Tobacco user Tobacco use type: Cigarette Advance Directives Date on File: 11/16/21 service: Yes ([employer]) Current occupational status: retired Cognitive needs: No Hearing needs: No Vision needs: Yes (rx reading glasses) Physical Exam ED Vital Signs: Vital Signs - 24 hr 07/11/25 11:33 07/11/25 15:21 07/11/25 15:35 Temperature 96.7 F L 97.9 F 97.9 F Pulse Rate 66 77 77 Respiratory Rate 18 18 18 Blood Pressure 148/94 H 152/84 H 152/84 H Pulse Oximetry 100 100 100 Oxygen Delivery Method Room Air Room Air Room Air BMI result Body Mass Index 13.3 GENERAL APPEARANCE: ?AxOx4, cachectic, no acute distress. HEENT: ?NC, AT. MMM. EOMI, clear conjunctiva, oropharynx clear. NECK: ?Supple without lymphadenopathy.? No stiffness or restricted ROM. HEART:? Normal rate and regular rhythm, normal S1/S2, no m/r/g LUNGS:? CTAB, moving air well. No crackles or wheezes are heard. ABDOMEN: ?Soft, nontender, nondistended BACK: No CVAT, no obvious deformity. EXTREMITIES: ?Without cyanosis, clubbing or edema. TTP over right trochanter/right lateral femur, skin tear of the right elbow without TTP, skin tear of the right knee, without TTP. NEUROLOGICAL: ?Grossly nonfocal. Alert and oriented, moving all 4 extremities. Skin: ?Warm and dry without any rash. Course Reevaluation(s) Reevaluation #1: POC glucose 36 upon arrival. Patient was given 15 g glucose gel, 6 oz orange juice, rice krispy treat, vanilla pudding with repeat glucose of 39. Patient asymptomatic at this time, encouraging her to eat sandwich, patient states she does not eat meat and cannot eat any more food or she will throw up. Time: 11:45 Reevaluation #2: POC glucose of 68. Serum glucose of 112. Will recheck serum glucose as there is discrepancy between POC glucose and serum glucose. Time: 12:50 Medications Administered Discontinued Medications Generic Name Dose Route Start Last Admin Trade Name Freq PRN Reason Stop Dose Admin Bacitracin 2 appl 07/11/25 14:39 07/11/25 14:46 Bacitracin Oint 0.9 Gm Packet TOPICAL 07/11/25 14:40 Not Given ONCE ONE Protocol Glucagon 1 mg 07/11/25 12:45 07/11/25 13:04 Glucagon Hcl 1 Mg Vial IVPUSH 07/11/25 12:46 Not Given ONCE ONE Glucose 15 gm 07/11/25 11:39 07/11/25 11:45 Glucose Gel 15 Gm Gel..Gram. PO 07/11/25 11:40 15 gm ONCE ONE Administration Acetaminophen 1,000 mg in 100 mls @ 400 mls/hr 07/11/25 13:46 07/11/25 14:26 Ofirmev IV 07/11/25 14:00 Infused ONCE ONE Infusion Magnesium Sulfate 2 gm in 50 mls @ 150 mls/hr 07/11/25 14:41 07/11/25 15:11 Magnesium Sulfate/H2o IV 07/11/25 15:00 Infused ONCE ONE Infusion Medical Decision Making Medical Decision Making MDM Narrative: 64-year-old female with medical history of osteoarthritis, anxiety, OCD, avoided and restrictive food intake disorder, cachexia, anemia, presents to the ED by EMS after mechanical fall this morning landing on R elbow, R hip. Denies headstrike or LOC. Reporting pain of R hip/femur area. Recent history of hypoglycemia. Was found to be hypoglycemic with POC of 36 in triage. VS on initial observation-BP 148/94, pulse rate of 66, respiratory rate of 18, afebrile with oral temp of 96.7?, O2 saturation 100% on room air. On physical exam TTP over right trochanter/right lateral femur, skin tear of the right elbow without TTP, skin tear of the right knee, without TTP. Labs without leukocytosis/leukopenia, normocytic anemia with HGB of 11.1, HCT of 33.7, hyponatremia of 133, hypomagnesemia of 1.5, serum glucose of 112. I repeated a BMP due to discrepancies of POC glucose and serum glucose which reveal improvement of sodium and is now WNL at 135, serum glucose of 67. Urine negative for infection or blood. Patient is being repleted with 2g IV magnesium. XR R hip reveals avulsion fracture of the greater trochanter of the R femur. Patient has history of anemia, her baseline HgB is 8.5-10, HgB today is 11.1, no indication of transfusion today. Hyponatremia, hypomagnesemia, and hypoglycemia is most likely due to poor oral intake. Patient has history of restrictive food disorder. Hip fracture is stable, will refer to [facility] [place] for further evaluation and management. I counseled patient to follow up with her primary care provider this week as well. I counseled patient that her lab findings today are most likely due to her poor oral intake and issues with food. I counseled patient on how to monitor her blood glucose at home. Patient has home blood glucose monitor, and has glucose tablets to correct for hypoglycemia. I counseled patient on strict return precautions including lightheadedness, dizziness, syncope, altered mental status/confusion, seizures. Patient and mother in agreement with the plan. skin tear of R knee was irrigated with saline and iodine, bacitracin placed with non stick dressing and wrapped. I spoke with my attending physican Dr. Marquez Cespedes who reviewed the patients chart with me. He is in agreement that the patient is able to discharge home with follow up with PCP and [facility]. Differential Diagnosis Differential Diagnoses: The differential diagnosis associated with the presentation includes Hypoglycemia Electrolyte imbalance Hip fracture Admission/Observation Consideration of admission/observation: Escalation of care including admission/observation considered Lab Data MDM Lab Attestation statement: I reviewed the patient's lab results. 07/11/25 12:21 07/11/25 14:00 Labs: Lab Results 07/11/25 07/11/25 07/11/25 Range/Units 12:21 14:00 14:23 WBC 6.2 (4.8-10.8) X10*3/uL RBC 3.78 L (4.20-5.50) X10*6/uL Hgb 11.1 L (12.0-16.0) g/dl Hct 33.7 L (37.0-47.0) % MCV 89.2 (80.0-98.0) fL MCH 29.4 (27.0-33.0) pg MCHC 32.9 (31.0-35.0) g/dl RDW 15.0 (11.0-16.0) % Plt Count 209 D (160-400) X10*3/uL MPV 9.1 L (9.4-12.3) fL Immature Gran % (Auto) 0.3 (0.0-0.4) % Neut % (Auto) 61.3 (45-73) % Lymph % (Auto) 28.8 (20-40) % [place] % (Auto) 7.6 (2-11) % Eos % (Auto) 1.0 (0-4) % Baso % (Auto) 1.0 (0-2) % Lymph # (Auto) 1.8 (1.2-4.9) X10*3/uL [place] # (Auto) 0.5 (0.1-1.2) X10*3/uL Eos # (Auto) 0.1 (0.0-0.4) X10*3/uL Baso # (Auto) 0.1 (0.0-0.2) X10*3/uL Abs Immat Gran (auto) 0.02 (0.00-0.03) X10*3/uL Absolute Neuts (auto) 3.8 (2.0-8.3) x10*3/uL Absolute Nucleated RBC 0.000 (0.0-0.012) X10*3/uL Nucleated RBC % (auto) 0.0 (0.0-0.2) /100WBC Sodium 133 L 135 (135-145) mmol/L Potassium 3.7 3.6 (3.3-5.1) mmol/L Chloride 97 97 (96-108) mmol/L Carbon Dioxide 27 30 H (22-29) mmol/L Anion Gap 13 12 (12-20) BUN 7 L 8 L (9-16) mg/dL Creatinine 0.62 0.58 (0.5-1.4) mg/dL Estim Creat Clear Calc 51.8 55.3 Estimated GFR > 60 > 60 Random Glucose 112 67 (60-115) mg/dL Calcium 8.6 D 8.5 (8.4-10.2) mg/dL Magnesium 1.5 L (1.6-2.6) mg/dL Total Bilirubin 0.9 (0.0-1.0) mg/dL AST 77 H (5-31) U/L ALT 47 H (0-31) U/L Alkaline Phosphatase 83 (39-117) U/L Total Protein 6.4 L (6.5-8.0) g/dL Albumin 3.6 (3.5-5.0) g/dL Urine Color Yellow Urine Appearance Clear Urine pH 8.0 (5.0-9.0) Ur Specific [place] <= 1.005 (1.005-1.025) Urine Protein Negative (Neg-Trace) mg/dL Urine Glucose (UA) Negative (Negative) mg/dL Urine Ketones Negative (Negative) mg/dL Urine Blood Negative (Negative) Urine Nitrite Negative (Negative) Ur Leukocyte Esterase Negative (Negative) Independent Interpretation I performed an independent interpretation of an: Plain X-Ray Interpretation: I independently interpreted the XR R hip which reveals avulsion fracture of the greater trochanter, I agree with the radiologist's interpretation I independently interpreted the XR R femur which was negative for fracture, I agree with the radiologist's interpretation Radiology Impression Discussion of test interpretation with radiology: I have reviewed the radiologist's reading. Radiologist Impression: XR R hip Findings: There is an avulsion fracture of the greater trochanter of the right femur involving a 3 cm fragment. Mild displacement at the fracture site. No dislocation. Prior open reduction internal fixation of the left femur with incomplete visualization of hardware. Mild arthritic changes. The soft tissues are unremarkable. IMPRESSION: Acute fracture of the right greater trochanter. This document has been electronically signed by: Patricia Fernandez MD on 07/11/2025 14:11:26 Dictated By: Patricia Fernandez MD Signed By: <Electronically signed by Patricia Fernandez MD in OV> 07/11/25 1411 XR R femur Findings: The proximal portion of the right femur was not included in this examination however it was visualized on the concurrent right hip x-ray series. There is no acute fracture of visualized portions of the right femur. The study did not evaluate for knee effusion secondary to positioning. Limited evaluation of the patellofemoral joint secondary to positioning. Chondrocalcinosis is present within the medial and lateral knee compartments. No radiopaque foreign body. IMPRESSION: 1. No acute bony abnormality within visualized portions of the right femur. The proximal femur was not imaged. This document has been electronically signed by: Patricia Fernandez MD on 07/11/2025 14:10:35 Dictated By: Patricia Fernandez MD Signed By: <Electronically signed by Patricia Fernandez MD in OV> 07/11/25 1410 Independent Historian Clinical information obtained from an independent historian. History obtained from or confirmed by: Parent (Mother at bedside corroborating history) External Record Review External record reviewed: Inpatient record, Office record and Outpatient record Chronic Conditions Patient?s care impacted by: Other (osteoarthritis, anxiety, OCD, avoided and restrictive food intake disorder, cachexia, anemia) Discharge Plan Discharge Clinical Impression: Hypoglycemia, Anemia, Hypomagnesemia, Avoidant and restrictive food intake disorder, Avulsion fracture of trochanter of femur Patient Disposition: Home, Self-Care Instructions: Hypomagnesemia (ED), Anemia (ED) Additional Instructions: You were evaluated in the emergency department after a mechanical fall today with right hip pain. Your lab work was significant for anemia with a hemoglobin of 11.1, and hematocrit of 33.7, low magnesium level of 1.5, and a low glucose level with lowest being 36 while in the department, but resolved to 67 after 15 g glucose gel, and eating. Your urine was negative for blood or infection. You were given 2g of magnesium through your IV today for repletion. Your Xray of your right hip revealed an avulsion fracture. You need to follow up with orthopedic office. I have placed a referral you need to call thier office Sunday morning. Additionally, please follow up with your primary care provider to adress anemia, low magnesium and low blood sugar. To manage at home please use your blood glucose monitor frequently. Use your home glucose tabs if sugar is under 50. Please try to eat small frequent meals throughout the day as this will prevent low blood sugar. Please return to the ED if you experience fevers over 100.4?, chest pain, shortness of breath, worsening pain of the right knee, worsening pain of the right hip, weakness, confusion, or any new/worsening/concerning symptoms. Prescriptions: No Action calcium carbonate-vitamin D3 [Calcium + D] 600 mg-5 mcg (200 unit) Tablet 1 tab PO DAILY (DME) FreeStyle Lite Strips Strip See Rx Instructions .ROUTE .MEDSUPPLY Qty: 100 1RF Rx Instructions: Check glucose 3 times a day with meals glucose 4 gram tablet,chewable 12 g PO Q15M PRN (Reason: hypoglycemia) Qty: 90 3RF Rx Instructions: If Glucose <70 take 3-4 tablets and recheck blood glucose 15-30 minutes later Ensure Original 0.04-1.05 gram-kcal/mL liquid 1 ea PO BID Qty: 5688 6RF multivitamin Tablet 1 tab PO DAILY cyclobenzaprine 5 mg tablet 5 mg PO TID Qty: 90 3RF Referrals: [facility] [Provider Group] Interventions: ED Discharge Assessment Last Done: 07/11/25 15:35 Discharge Date/Time: 07/11/25 15:36 Print Language: Yemeni
--- OUTSIDE RECORDS SUMMARY | 2025-07-11 11:55 | XMS_ITS | Clinical Summary ---
Author Organization [address] [facility] Address [address] [place] [address] Phone Care Team Providers Care Mortar Mixer Operator Name Role Phone Adin Bob MD Primary Care Provider [phone] Allergies No known active allergies Medications multivit-min/iron/ [...] pressure ulcer Malnutrition (CMS/HCC V24) DX:Ma lnutrition ([facility]) Failure to thrive in adult DX:Fa ilure to thrive in adult Normocytic anemia DX:Normocytic anemia Cachexia ([facility] V24) DX:Cachex ia ([facility]) Closed intertrochanteric fra cture of femur ([facility] V24, [facility] V28) DX:Closed intertrocha nteric fracture of femur ([facility]) Anemia DX:Anemia Social History Tobacco Use Types [...] LEFT Insurance MEDICAID - [place] Care Teams Mortar Mixer Operator Relationship Specialty Start Date End Date Adin Bob MD [address], [place] PCP - General 07/03/24
[2025-07-11 12:29] LABS: MANUAL DIFF FLAG NO
[2025-07-11 12:43] LABS: Hematocrit 33.7 % (37.0-47.0); Hemoglobin 11.1 g/dl (12.0-16.0); Imm Gran Abs Auto 0.02 X10*3/uL (0.00-0.03); Imm Gran Pct Auto 0.3 % (0.0-0.4); Lymphocytes Absolute Auto 1.8 X10*3/uL (1.2-4.9); Mean Corpuscular HGB Conc 32.9 g/dl (31.0-35.0); Mean Corpuscular Hemoglobin 29.4 pg (27.0-33.0); Mean Corpuscular Volume 89.2 fL (80.0-98.0); NRBC Abs Auto 0.000 X10*3/uL (0.0-0.012); NRBC Pct Auto 0.0 /100WBC (0.0-0.2); Platelet Count 209 X10*3/uL (160-400); Red Blood Count 3.78 X10*6/uL (4.20-5.50); White Blood Count 6.2 X10*3/uL (4.8-10.8)
--- NOTE | 2025-07-11 12:50 | PC.NURSE ---
repeat POC 68- PA Corinna notified
[2025-07-11 12:57] LABS: Alanine Aminotransferase 47 U/L (0-31); Albumin Level 3.6 g/dL (3.5-5.0); Alkaline Phosphatase 83 U/L (39-117); Anion Gap 13 (12-20); Aspartate Amino Transferase 77 U/L (5-31); Blood Urea Nitrogen 7 mg/dL (9-16); Calcium 8.6 mg/dL (8.4-10.2); Carbon Dioxide 27 mmol/L (22-29); Chloride 97 mmol/L (96-108); Creatinine Clr Calc Pharmacy 51.8; Estimated Glomerular Filt Rate > 60; Magnesium 1.5 mg/dL (1.6-2.6); Potassium 3.7 mmol/L (3.3-5.1); Sodium 133 mmol/L (135-145); Total Protein 6.4 g/dL (6.5-8.0)
--- NOTE | 2025-07-11 13:04 | PC.NURSE ---
Serum blood glucose 112- PA Corinna notified, BMP to be repeated in 30 minutes
[2025-07-11 14:24] LABS: Anion Gap 12 (12-20); Blood Urea Nitrogen 8 mg/dL (9-16); Calcium 8.5 mg/dL (8.4-10.2); Carbon Dioxide 30 mmol/L (22-29); Chloride 97 mmol/L (96-108); Creatinine Clr Calc Pharmacy 55.3; Estimated Glomerular Filt Rate > 60; Potassium 3.6 mmol/L (3.3-5.1); Sodium 135 mmol/L (135-145)
[2025-07-11 14:29] LABS: Appearance Urine Clear; Glucose Urine UA Negative (Negative); PH 8.0 (5.0-9.0); Specific Gravity - Urine <= 1.005 (1.005-1.025)
[2025-07-11] MEDS: Magnesium Sulfate/H2O 2 GM/50 ML PIGGYBACK IV (14:51)
[2025-07-11 15:21] VITALS: BP 152/84; PULSE 77; RESP 18; TEMP 36.6; O2SAT 100
[2025-07-11 15:35] VITALS: BP 152/84; PULSE 77; RESP 18; TEMP 36.6; O2SAT 100
[2025-07-21 12:25] LABS: Glucose, Whole Blood 36 mg/dL (60-115)
[2025-07-21 12:26] LABS: Glucose, Whole Blood 34 mg/dL (60-115)
[2025-07-21 12:26] LABS: Glucose, Whole Blood 39 mg/dL (60-115)
[2025-07-21 12:26] LABS: Glucose, Whole Blood 32 mg/dL (60-115)
[2025-07-21 12:27] LABS: Glucose, Whole Blood 68 mg/dL (60-115)
[2025-07-21 12:27] LABS: Glucose, Whole Blood 30 mg/dL (60-115)
== END 2025-07-11 15:36 | disposition home or self-care (01) ==
PROVIDERS: Emergency Provider Emergency Medicine; PCP Physician Assistant Medical
DX: S72.101A Unspecified trochanteric fracture of right femur, initial encounter for closed fracture (principal); W01.0XXA Fall on same level from slipping, tripping and stumbling without subsequent striking against object, initial encounter; Y93.89 Activity, other specified; Y92.512 Supermarket, store or market as the place of occurrence of the external cause; Y99.8 Other external cause status; R62.7 Adult failure to thrive; Z68.1 Body mass index [BMI] 19.9 or less, adult; E16.2 Hypoglycemia, unspecified; E87.1 Hypo-osmolality and hyponatremia; E83.42 Hypomagnesemia; D64.9 Anemia, unspecified; Z79.899 Other long term (current) drug therapy
CPT/HCPCS: 36415; 73502; 73552; 80048; 80053; 81003; 82947; 83735; 85025; 96365; 96367; 99285; J0131; J3475

== ENCOUNTER → 2025-07-11 12:15 | Outpatient (BNV) | payer MEDICARE, SELFPAY | PROVIDERS: Emergency Provider Emergency Medicine; PCP Physician Assistant Medical; Visit Provider Radiology Diagnostic Radiology | DX: S72.111A Displaced fracture of greater trochanter of right femur, initial encounter for closed fracture (principal); M79.651 Pain in right thigh; M25.551 Pain in right hip; W01.0XXA Fall on same level from slipping, tripping and stumbling without subsequent striking against object, initial encounter | CPT/HCPCS: 73502; 73552 ==

== ENCOUNTER 2025-07-14 13:34 | Outpatient (AMB) | payer MEDICARE, SELFPAY ==
[2025-07-14 13:32] VITALS: BP 139/78; PULSE 70; RESP 14; TEMP 37; O2SAT 100; BMI 11.7
--- NOTE | 2025-07-14 13:32 | A.OFFPC_ITS ---
Vital Signs 07/14/25 13:32 07/14/25 14:17 Height 5 ft 3.39 in Weight 67 lb BMI 11.7 BP 139/78 123/71 Blood Pressure Location Lt brachial Position Sitting Respiration 14 Pulse 70 Pulse Source Pulse Oximeter Temp 98.6 F Temp Source Temporal Artery Scan Pulse Oximetry (%) 100 Oxygen Delivery Method Room Air Intake Visit Reasons: ER Follow up Sign Maintenance Required: No Allergies No Known Allergies (No Known Allergies*) Allergy (Verified 07/15/25 17:44) Medication List - Last Reconciled 07/15/25 by Naomy Khan PA-C blood sugar diagnostic (FreeStyle Lite Strips) Check glucose 3 times a day with meals calcium carbonate-vitamin D3 600 mg-5 mcg (200 unit) 1 tab PO DAILY cyclobenzaprine 5 mg PO TID food supplemt, lactose-reduced (Ensure Original) 1 ea PO BID glucose 12 grams (3 x 4 gram) PO Q15M PRN magnesium oxide 400 mg PO DAILY multivitamin 1 tab PO DAILY Tobacco use date assessed: 07/14/25 Dental Screening Dental Screen Date: 07/10/25 HPI ER Follow up HPI Details The patient is a 64-year-old female presenting with anemia, hypoglycemia, and an avulsion fracture of the right femur. Patient was seen last week for hypoglycemia and she was instructed to go to an emergency department although she declined and wanted to be treated as an outpatient. She declined sales representative aircraft referral reports that Dr. Garcia used to work with her as an outpatient so she would not have to go to the hospital. Her sugars have been in the 40s although she reports she has no symptoms related to this. I explained to her that if her sugar dropped below 70 she is at risk for a coma or . She understands this and still did not want to go to the emergency department therefore we came up with the plan that if her sugar falls below 70 she will take 3-4 tablets of glucose tabs and recheck her glucose after 15 minutes. If level remains low the patient should repeat the process and consumed juice or a tbsp of honey or sugar. The patient was also encouraged to increase her intake and carbohydrate rich foods and ensure to maintain stable glucose level. The patient sustained an avulsion fracture of the greater trochanter of the right femur after a fall at the grocery store on July 11 after she was seen by us. She reported to me that the emergency department told her the reason she is hypoglycemic is due to her long standing history of anemia although I do not believe the patient truly understood this correctly. She was informed by the emergency room that anemia can contribute to her consistent low blood sugars. Although she also is not eating regularly and she also runs on a treadmill for approximately 15-30 minutes every morning and night. I explained to her that if she is only eating 1 egg a piece of toast and then ensure throughout the day then that is not enough and when she exercises she is burning all her energy and what she has stored. I explained to her that she should not exercise until she can increase her dietary intake. I explained to her that if her sugar dropped below 70 she should go to the emergency department although patient is very hesitant therefore she would like to follow the plan of the 3-4 tablets of glucose and repeat 15 minutes later and continuing following that plan. She reports pain in the groin area when lifting her leg. The patient sustained an avulsion fracture of the greater trochanter of the right femur after a fall at the grocery store on July 11. She reports pain in the groin area when lifting her leg. The patient also has a magnesium deficiency, which was identified during her emergency room visit. She expresses reluctance to take magnesium supplements due to concerns about potential side effects, such as increased heart rate. Social History - Exercise: The patient engages in walki ng as a form of exercise but has been advised to limit it due to her hip fracture. [facility] Medical History (Updated 07/16/25 @ 14:35 by Naomy Khan PA-C) Hypoglycemia Magnesium deficiency Skin tear of right elbow without complication High thyroid stimulating hormone (TSH) level Underweight (BMI < 18.5) Severely underweight adult History of sepsis History of femur fracture Osteoarthritis, multiple sites Elevated blood pressure reading Skin lesion Myocardial infarct Hx: UTI (urinary tract infection) (~03/01/24) Cataract Anxiety Basal cell carcinoma Skin lesion of right arm Skin lesion of back Chronic constipation Generalized anxiety disorder OCD (obsessive compulsive disorder) Avoidant and restrictive food intake disorder MSSA bacteremia Sacral pressure ulcer Malnutrition Failure to thrive in adult Normocytic anemia Cachexia Closed intertrochanteric fracture of femur Anemia Surgical History History of surgical removal of skin lesion (~09/29/24) Hx of basal cell carcinoma excision History of surgical removal of skin lesion (~01/23/24) History of hip surgery (11/16/21) H/O foot surgery Family History Father Heart disease Mother No problems noted. Social History Household Members: Family Household Members Other:: mother Housing: House Are you a primary weekend caregiver to a significant other at home: No Do you presently have visiting nurse or other home services: No Alcohol intake: never Comment: runs 30 minutes on treadmill daily Patient Tobacco Use Status: Former Tobacco user Tobacco use type: Cigarette Advance Directives Date on File: 11/16/21 service: Yes ([employer] Current occupational status: retired Cognitive needs: No Hearing needs: No Vision needs: Yes (rx reading glasses) Questionnaire PHQ-9 Over the last 2 weeks, how often have you been bothered by any of the following problems? 1. Little interest or pleasure in doing things: not at all 2. Feeling down, depressed, or hopeless: not at all 3. Trouble falling or staying asleep, or sleeping too much: not at all 4. Feeling tired or having little energy: not at all 5. Poor appetite or overeating: not at all 6. Feeling bad about yourself - or that you are a failure or have let yourself or your family down: not at all 7. Trouble concentrating on things, such as reading the newspaper or watching television: not at all 8. Moving or speaking so slowly that other people could have noticed. Or the opposite - being so fidgety or restless that you have been moving around a lot more than usual: not at all 9. Thoughts that you would be better off or of hurting yourself in some way: not at all Total score: 0 Depression Screening Interpretation: Negative Depression Screening Done: Yes 13775 - PHQ-9 Billing: Yes Source: Developed by Drs. Antelmo Estrada, Leslie Gordon, Preston Walker and colleagues, with an educational britney from [employer]. Thrive Questionnaire Date Thrive assessed: 07/10/25 I am a: Patient What is your living situation today?: I have a steady place to live Within the past 12 months, did the food you bought not last and you didn't have the money to get more?: Never true Within the past 12 months, did you worry whether your food would run out before you got money to buy more?: Never true Do you have trouble paying for medicines?: No Do you have trouble getting transportation to medical appointments?: No Do you have trouble paying your heating and electricity bill?: No Do you have trouble taking care of your child, family member or friend?: No Do you have trouble with day-to-day activities such as bathing, preparing meals, shopping, managing finances, etc.?: Yes Are you currently unemployed and looking for a job?: No Are you interested in more education?: No Please select the resources that you would like help with: None THRIVE Score: 0 AUDIT C Alcohol Use Questionnaire (AUDIT-C) 1. How often do you have a drink containing alcohol?: Never 3. How often do you have six or more drinks on one occasion?: Never Total Score: 0 Score Reviewed/Action Taken: No DESTINEE-7 AMB Questionnaire DESTINEE-7 Date DESTINEE - 7 assessed: 07/10/25 Feeling nervous, anxious, or on edge: 0 = Not at all Not being able to stop or control worryin = Not at all Worrying too much about different things: 0 = Not at all Trouble relaxin = Not at all Being so restless that it is hard to sit still: 0 = Not at all Becoming easily annoyed or irritable: 0 = Not at all Feeling afraid as if something awful might happen: 0 = Not at all Total DESTINEE-7 score (0-4 normal; 5-9 mild; 10-14 moderate; 15-21 severe): 0 Source: Developed by Drs. Antelmo Estrada, Leslie Gordon, Preston Walker and colleagues, with an educational britney from [employer]. DESTINEE-7 Assessment Billing DESTINEE-7 Assessment Tool: DESTINEE-7 Assessment 00606 Review of Systems Const Details: - Cardiovascular: Reports palpitations and increased heart rate after meals. - Musculoskeletal: Reports pain in the groin area when lifting the leg. - Endocrine: Reports episodes of hypoglycemia with blood sugar levels dropping to the 40s. All systems reviewed & are unremarkable except as noted in HPI and below Physical exam (Primary Care) Vital Signs: Last Vital Signs Temp 98.6 F 07/14/25 13:32 Pulse 70 07/14/25 13:32 Resp 14 07/14/25 13:32 BP 123/71 07/14/25 14:17 Pulse Ox 100 07/14/25 13:32 Oxygen Delivery Method Room Air 07/14/25 13:32 Care Plan Goal for BP management: <140/90 at Goal BMI result Body Mass Index 11.7 BMI Assessment/Plan discussion: Low BMI Low, Plan discussed: lifestyle, increase calorie intake, dietary and other Tobacco/Smoking Status: Tobacco use Status Tobacco use date assessed 07/14/25 07/14/25 13:39 Patient Tobacco Use Status Former Tobacco user 07/14/25 13:34 Tobacco use type Cigarette 07/14/25 13:34 PHQ-9: PHQ-9 Score PHQ-9: Total score 0 07/15/25 17:47 Depression Screening Interpretation: Negative Thrive Assessment: Date of Thrive Assessment Date Thrive assessed 07/10/25 07/14/25 13:34 Const Other: Appearance: Alert. Oriented X3. No acute distress. Head: Normal external exam. Normocephalic. Atraumatic. Eyes: Pupils are equal, round, and reactive to light. Extraocular movements intact. Conjunctiva and sclera normal. Eyelids normal. Ears: External auditory canal normal. Tympanic membranes normal. Throat: Pharynx normal. Uvula midline. Moist mucous membranes. Neck: Normal inspection. Neck supple. Full range of motion. No adenopathy. Thyroid Normal. No meningeal signs. No neck mass noted. Cardiovascular: Normal heart rate and rhythm. Heart sound normal. No murmurs noted. Pulses normal throughout. Blood pressure was noted to be 139, slightly elevated but not concerning. Respiratory: No respiratory distress. Painless inspiration. Breath sounds normal. No wheezes/rales/rhonchi noted. Chest nontender. No accessory muscle usage noted or decreased air movement noted. Abdomen: Soft and nontender. Bowel sounds normal in all 4 quadrants. No distention noted. No organomegaly noted. No visible injury noted. Back: No costovertebral angle tenderness. Full range of motion noted. Skin: Skin warm and dry. Normal skin color. Normal skin turgor. Skin tear to knee and elbow no signs of infection. No additional lacerations lesions or signs of infection. Extremities: No lower extremity edema. Noted avulsion fracture of the great trochanteric of the right femur involving a 3 cm fragment. Patient reports mild pain to the right femoral area denies any other pain to any other extremities. Neuro: Oriented X 3. No motor deficit. No sensory deficit. Reflexes normal. Results Reviewed Results Reviewed: - Labs: Blood sugar levels recorded as low as 36 mg/dL during ER visit. - Labs: Magnesium deficiency noted during ER visit. Coding Level of Care Code Est Pt Level 4 (46979) Complex EM visit Add On G2211 Diagnoses Anemia D64.9 Hypoglycemia E16.2 Closed intertrochanteric fracture of femur S72.143A Magnesium deficiency E61.2 Additional Codes DESTINEE-7 Assessment Billing - DESTINEE-7 Assessment Tool: DESTINEE-7 Assessment 65557 ([id number]) PHQ-9 - 30375 - PHQ-9 Billing: Yes ([id number]) Time Spent (min) 60 Assessment & Plan Assessment & Plan (1) Anemia: Code(s): D64.9 - Anemia, unspecified Category: Medical Plan: The patient has a long-standing history of anemia, which has been managed with dietary adjustments and monitoring. Further evaluation of her anemia is recommended, including a complete blood count and iron studies, to assess the current status and guide treatment. (2) Hypoglycemia: Code(s): E16.2 - Hypoglycemia, unspecified Category: Medical Plan: The patient experiences recurrent episodes of hypoglycemia, with blood sugar levels dropping to the 40s. Management includes the use of sugar tablets and dietary modifications to stabilize blood glucose levels. She is advised to monitor her blood sugar regularly and adjust her intake of sugar tablets and meals accordingly. She is highly instructed to go to the emergency department for sugar drops below 70 although patient is refusing this therefore we made a plan that if her sugar drops below 70 she will take 3-4 glucose tabs and recheck glucose after 15 minutes and if remains low she will repeat the process and consumed juice or tbsp of honey or sugar and she will also increase her intake of carbohydrates rich foods and ensure to maintain stable glucose levels. (3) Closed intertrochanteric fracture of femur: Code(s): S72.143A - Displaced intertrochanteric fracture of unspecified femur, initial encounter for closed fracture Category: Medical Plan: The patient sustained an avulsion fracture of the greater trochanter of the right femur following a fall. She is advised to limit physical activity to prevent further injury and to follow up with an orthopedic technician for further management. (4) Magnesium deficiency: Code(s): E61.2 - Magnesium deficiency Category: Medical Plan: The patient has a magnesium deficiency identified during her ER visit. She is advised to consider magnesium supplementation to prevent complications associated with low magnesium levels, despite her concerns about side effects. Plan Plan Patient was informed and verbally consented to the use of an ambient scribe for clinic note documentation during this visit. 1. Anemia The patient has a long-standing history of anemia, which has been managed with dietary adjustments and monitoring. Further evaluation of her anemia is recommended, including a complete blood count and iron studies, to assess the current status and guide treatment. 2. Hypoglycemia The patient experiences recurrent episodes of hypoglycemia, with blood sugar levels dropping to the 40s. Management includes the use of sugar tablets and dietary modifications to stabilize blood glucose levels. She is advised to monitor her blood sugar regularly and adjust her intake of sugar tablets and meals accordingly. She is highly instructed to go to the emergency department for sugar drops below 70 although patient is refusing this therefore we made a plan that if her sugar drops below 70 she will take 3-4 glucose tabs and recheck glucose after 15 minutes and if remains low she will repeat the process and consumed juice or tbsp of honey or sugar and she will also increase her intake of carbohydrates rich foods and ensure to maintain stable glucose levels. 3. Avulsion Fracture Of The Greater Trochanter Of The Right Femur The patient sustained an avulsion fracture of the greater trochanter of the right femur following a fall. She is advised to limit physical activity to prevent further injury and to follow up with an orthopedic technician for further management. 4. Magnesium Deficiency The patient has a magnesium deficiency identified during her ER visit. She is advised to consider magnesium supplementation to prevent complications associated with low magnesium levels, despite her concerns about side effects. During the visit, we discussed the management of the patient's anemia, hypoglycemia, and avulsion fracture. I advised her on the importance of monito ring her blood sugar levels and adjusting her intake of sugar tablets and meals accordingly. We also discussed the need for magnesium supplementation to address her deficiency and the potential side effects she is concerned about. Patient Instructions: - Monitor blood sugar levels regularly and take sugar tablets as needed. - Limit physical activity to prevent further injury to the hip fracture. - Consider magnesium supplementation to address deficiency.
[2025-07-14 14:17] VITALS: BP 123/71
--- OUTSIDE RECORDS SUMMARY | 2025-07-14 16:40 | XMS_ITS | Clinical Summary ---
Author Organization [address] [facility] Address [address] [place] [address] Phone Care Team Providers Care Elderly Companion Name Role Phone Adin Bob MD Primary Care Provider [phone] Allergies No known active allergies Medications multivit-min/iron/ [...] pressure ulcer Malnutrition (CMS/HCC V24) DX:Ma lnutrition ([facility]) Failure to thrive in adult DX:Fa ilure to thrive in adult Normocytic anemia DX:Normocytic anemia Cachexia ([facility] V24) DX:Cachex ia ([facility]) Closed intertrochanteric fra cture of femur ([facility] V24, [facility] V28) DX:Closed intertrocha nteric fracture of femur ([facility]) Anemia DX:Anemia Social History Tobacco Use Types [...] LEFT Insurance MEDICAID - [place] Care Teams Elderly Companion Relationship Specialty Start Date End Date Adin Bob MD [address], [place] PCP - General 07/03/24
== END 2025-07-14 14:56 | disposition home or self-care (01) ==
LOC: HO.HMCSH 13:34
PROVIDERS: PCP Physician Assistant Medical; Visit Provider Physician Assistant Medical
DX: D64.9 Anemia, unspecified (principal); E16.2 Hypoglycemia, unspecified; S72.143A Displaced intertrochanteric fracture of unspecified femur, initial encounter for closed fracture; E61.2 Magnesium deficiency

== ENCOUNTER → 2025-07-14 13:34 | Outpatient (BNVA) | payer MEDICARE, SELFPAY | PROVIDERS: PCP Physician Assistant Medical; Visit Provider Physician Assistant Medical | DX: I10 Essential (primary) hypertension (principal); R10.30 Lower abdominal pain, unspecified; E61.2 Magnesium deficiency; D64.9 Anemia, unspecified; E16.2 Hypoglycemia, unspecified; S72.91XA Unspecified fracture of right femur, initial encounter for closed fracture; W19.XXXA Unspecified fall, initial encounter; Y93.9 Activity, unspecified; Y92.512 Supermarket, store or market as the place of occurrence of the external cause; Y99.9 Unspecified external cause status | CPT/HCPCS: 96127; 99212 ==

== ENCOUNTER 2025-08-13 08:45 | Outpatient (REF) | payer MEDICARE, SELFPAY ==
--- NOTE | ~2025-08-13 | XR_ITS ---
EXAMINATION: XR HIP, RIGHT CLINICAL INFORMATION: M25.551 - Pain in right hip COMPARISON: 07/11/2025. TECHNIQUE: AP pelvis, and 2 views of the right hip. FINDINGS: The crosstable lateral is limited by technique. Redemonstration of an avulsion fracture of the greater trochanter of the right hip. It is minimally displaced, stable from prior exams. There is periosteal new bone formation and the fracture lines have become less distinct, indicating healing. Mild degenerative change in the right hip joint. Intramedullary toni and compression screw is seen in the left hip. There is heterotopic bone formation superior to the left greater trochanter. These findings are stable. Degenerative changes with mild scoliosis in the lower lumbar spine. Degenerative changes in both SI joints. Diffuse vascular calcifications are present in the soft tissues. XR/XR hip RT min 2V IMPRESSION: 1. Subacute healing fracture of the greater trochanter of the right hip, in stable alignment from prior exams. 2. Diffuse vascular calcifications. Electronically signed by: Christo Yung MD 08/13/2025 11:22 AM [facility]
== END 2025-08-13 08:46 | disposition home or self-care (01) ==
LOC: HO.HOSX 08:45
PROVIDERS: Visit Provider Physician Assistant
DX: S72.111A Displaced fracture of greater trochanter of right femur, initial encounter for closed fracture (principal); W17.82XA Fall from (out of) grocery cart, initial encounter
CPT/HCPCS: 73502; 99212

== ENCOUNTER 2025-08-13 10:46 | Outpatient (AMB) | payer MEDICARE, SELFPAY ==
--- NOTE | 2025-08-13 10:47 | A.OFFVIS_ITS ---
Vital Signs 08/13/25 11:21 Height 5 ft 3 in Weight 67 lb BMI 11.9 Intake Visit Reasons: ED/FC RT hip avulsion fracture DOI 07/11/25 Intake Note: Karen is a 64 year old female who presents today as a new patient for an ER follow up of right hip avulsion fracture, DOI 07/11/25. Patient reported to [facility] that she was shopping at [employer] when she tripped over a grocery shelving falling onto her right elbow, right hip, right knee. She had x-rays revealing fracture and was referred to orthopedics. Today patient reports ongoing soreness in her buttocks and groin area. Discomfort with getting up from a sitting position and at night with sleeping. Allergies No Known Allergies (No Known Allergies*) Allergy (Verified 08/13/25 11:16) Medication List - Last Reconciled 08/13/25 by Isabell Starks PA-C aspirin 81 mg PO DAILY blood sugar diagnostic (FreeStyle Lite Strips) Check glucose 3 times a day with meals calcium carbonate-vitamin D3 600 mg-5 mcg (200 unit) 1 tab PO DAILY food supplemt, lactose-reduced (Ensure Original) 1 ea PO BID glucose 12 grams (3 x 4 gram) PO Q15M PRN lancets (FreeStyle Lancets) Check glucose 3 times a day with meals multivitamin 1 tab PO DAILY HPI HPI ED/FC RT hip avulsion fracture DOI 07/11/25: Details: The office today for an injury she sustained to her right hip on 07/11/2025 while walking [place] [employer] when she tripped and fell. She was seen in the emergency department where x-rays were obtained which showed a nondisplaced greater troch fracture. She was discharged home and referred to our office for ortho eval. The patient states since her injury she has used a walker for 2 weeks but then discontinued the use of it. She walks every day for 30 minutes on the treadmill. She denies pain. [facility] Medical History (Updated 08/13/25 @ 11:42 by Isabell Starks PA-C) Hypoglycemia Magnesium deficiency Skin tear of right elbow without complication High thyroid stimulating hormone (TSH) level Underweight (BMI < 18.5) Severely underweight adult History of sepsis History of femur fracture Osteoarthritis, multiple sites Elevated blood pressure reading Skin lesion Myocardial infarct Hx: UTI (urinary tract infection) (~03/01/24) Cataract Anxiety Basal cell carcinoma Skin lesion of right arm Skin lesion of back Chronic constipation Generalized anxiety disorder OCD (obsessive compulsive disorder) Avoidant and restrictive food intake disorder MSSA bacteremia Sacral pressure ulcer Malnutrition Failure to thrive in adult Normocytic anemia Cachexia Closed intertrochanteric fracture of femur Anemia Surgical History History of surgical removal of skin lesion (~09/29/24) Hx of basal cell carcinoma excision History of surgical removal of skin lesion (~01/23/24) History of hip surgery (11/16/21) H/O foot surgery Family History Father Heart disease Mother No problems noted. Social History Household Members: Family Household Members Other:: mother Housing: House Are you a primary care specialist to a significant other at home: No Do you presently have visiting nurse or other home services: No Alcohol intake: never Comment: runs 30 minutes on treadmill daily Patient Tobacco Use Status: Former Tobacco user Tobacco use type: Cigarette Advance Directives Date on File: 11/16/21 service: Yes ([employer]) Current occupational status: retired Cognitive needs: No Hearing needs: No Vision needs: Yes (rx reading glasses) Review of Systems Const All systems reviewed & are unremarkable except as noted in HPI and below Physical Exam Vital Signs: BMI result Body Mass Index 11.9 Const General: cooperative and no acute distress Orientation/consciousness: patient oriented x3 Resp Effort & Inspection: normal respiratory effort and able to speak in complete sentences Cardio Peripheral pulses: Peripheral pulses 2+ throughout Neuro General: patient oriented x3 Extrem Other: Patient able to walk comfortably. She has no pain with hip flexion or rotation of the hip. Full range of motion of the knee and ankle. Calf supple and nontender neurovascularly intact. Office Procedures AMB Fracture Care Fracture Billing Code: Fracture Billing Code Results Reviewed Results Reviewed: X-rays of the right hip obtained in the office today and reviewed by me show a stable greater troch fracture Assessment & Plan Assessment & Plan (1) Fracture of greater trochanter of right femur: Code(s): S72.111A - Displaced fracture of greater trochanter of right femur, initial encounter for closed fracture Category: Medical Plan: I encouraged the patient to ambulate with assistance using a walker or a cane to prevent injury if she is unsteady on her feet which she declines. I encouraged her to avoid any impact activities and abduction of the right femur. She does express understanding. I would like to see her back in 6 weeks with x-rays, sooner if needed. Orders: Orders XR hip RT min 2V Today M25.551 - Pain in right hip Coding Level of Care Code Est Pt Level 3 (04276) Complex EM visit Add On G2211 Diagnoses Fracture of greater trochanter of right femur S72.111A CPT Codes Fracture Care - Fracture Billing Code: Fracture Billing Code ([id number])
[2025-08-13 11:21] VITALS: BMI 11.9
--- OUTSIDE RECORDS SUMMARY | 2025-08-13 13:05 | XMS_ITS | Clinical Summary ---
Author Organization 175 [facility] Address [address] [place] [address] Phone Care Team Providers Care Senior Instructional Designer Name Role Phone Adin Bob MD Primary Care Provider Allergies No known active allergies Medications multivit-min/iron/ [...] ulcer Malnutrition (CMS/HCC V24) DX:Ma lnutrition ([facility]) Failure to thrive in adult DX:Fa ilure to thrive in adult Normocytic anemia DX:Normocytic anemia Cachexia ([facility] V24) DX:Cachex ia ([facility]) Closed intertrochanteric fra cture of femur ([facility] V24, [facility] V28) DX:Closed intertrocha nteric fracture of femur ([facility]) Anemia DX:Anemia Social History Tobacco Use Types [...] LEFT Insurance MEDICAID - [place] Care Teams Senior Instructional Designer Relationship Specialty Start Date End Date Adin Bob MD [address], [place] PCP - General 07/03/24
== END 2025-08-13 11:38 | disposition home or self-care (01) ==
LOC: HO.HOS 10:47
PROVIDERS: PCP Physician Assistant Medical; Visit Provider Physician Assistant
DX: S72.111A Displaced fracture of greater trochanter of right femur, initial encounter for closed fracture (principal)
CPT/HCPCS: 99213; G2211

== ENCOUNTER → 2025-08-13 10:57 | Outpatient (BNV) | payer MEDICARE, SELFPAY | PROVIDERS: Visit Provider Radiology Diagnostic Radiology | DX: S72.111D Displaced fracture of greater trochanter of right femur, subsequent encounter for closed fracture with routine healing (principal); I70.201 Unspecified atherosclerosis of native arteries of extremities, right leg | CPT/HCPCS: 73502 ==

== ENCOUNTER 2025-09-16 10:18 | Outpatient (AMB) | payer MEDICARE, SELFPAY ==
--- NOTE | 2025-09-16 10:31 | A.OFFVIS_ITS ---
Vital Signs 09/16/25 10:35 Height 5 ft 3 in Weight 67 lb BMI 11.9 Intake Visit Reasons: OV B/L hand pain Intake Note: Karen 64 yr old female presnets today for a follow up visit for her Non- traumatic rupture of sagittal band of extensor tendon of right and left upper extremity & deformity of joint of finger of right hand. States her finger has worsen in the last few months. States her fingers are locking and is difficult to shovel. Patient wouldlike to discuss injections and drainage in her right middle MCP. Allergies No Known Allergies (No Known Allergies*) Allergy (Verified 09/16/25 10:34) HPI HPI OV B/L hand pain: Details: Karen is a 64 year old right hand dominant woman who returns with several complaints. She complains of painful locking, catching, and limited use of her bilateral middle & ring fingers, due to sagittal band disruptions. She has difficulty gripping objects & using her hands, she says shovelling snow is very difficult for her. She also complains of painful swelling in her right MCP joints, particularly the middle finger She was very upset at her last appointment that treatment was refused, due to her malnutrition & low BMI. She would have needed clearance by a spray machine operator prior to considering any surgical intervention. She has a Hx of 2 recent MIs, one in November and the other in January of 2024, cardiomypathy, and basal cell carcinoma. She denies any blood thinners. She has a Hx of DESTINEE, OCD, malnutrition and a food intake disorder. She is 5 ft 3 and weighs 67 lb, and Her current BMI is 11.9. [facility] Medical History (Updated 09/01/25 @ 15:14 by Naomy Khan PA-C) Recurrent severe hypoglycemia Hypoglycemia Magnesium deficiency Skin tear of right elbow without complication High thyroid stimulating hormone (TSH) level Underweight (BMI < 18.5) Severely underweight adult History of sepsis History of femur fracture Osteoarthritis, multiple sites Elevated blood pressure reading Skin lesion Myocardial infarct Hx: UTI (urinary tract infection) (~03/01/24) Cataract Anxiety Basal cell carcinoma Skin lesion of right arm Skin lesion of back Chronic constipation Generalized anxiety disorder OCD (obsessive compulsive disorder) Avoidant and restrictive food intake disorder MSSA bacteremia Sacral pressure ulcer Malnutrition Failure to thrive in adult Normocytic anemia Cachexia Closed intertrochanteric fracture of femur Anemia Surgical History History of surgical removal of skin lesion (~09/29/24) Hx of basal cell carcinoma excision History of surgical removal of skin lesion (~01/23/24) History of hip surgery (11/16/21) H/O foot surgery Family History Father Heart disease Mother No problems noted. Social History Household Members: Family Household Members Other:: mother Housing: House Are you a primary health care legal assistant to a significant other at home: No Do you presently have visiting nurse or other home services: No Alcohol intake: never Comment: runs 30 minutes on treadmill daily Patient Tobacco Use Status: Former Tobacco user Tobacco use type: Cigarette Advance Directives Date on File: 11/16/21 service: Yes ([employer]) Current occupational status: retired Cognitive needs: No Hearing needs: No Vision needs: Yes (rx reading glasses) Physical Exam Vital Signs: BMI result Body Mass Index 11.9 Const General: cooperative, healthy appearing and no acute distress Orientation/consciousness: patient oriented x3 HEENT Head: Yes normocephalic and Yes atraumatic Eyes EOM: EOMs intact bilaterally Resp Effort & Inspection: normal respiratory effort and able to speak in complete sentences Cardio Jugular venous distension: no JVD Skin General skin exam: turgor normal Rashes: no rashes Neuro General: patient oriented x3 Extrem Other: Evaluation of Bilateral Upper Extremity: The patient is alert and oriented. She became somewhat tearful during her appointment today She is extremely thin, indeed cachectic in appearance. Neuro: Median, Ulnar, Radial nerves motor and sensory intact and sensation is normal to the tips of all digits Vascular: Cap refill brisk ROM: Concerning the right hand: She can bring her fingers closed to a fist She can extend all her digits, however with extension she has ~50 degrees radial deviation of the index finger PIP joint. She has ulnar subluxation of the extensor tendons to the middle finger and ring finger when her fingers are brought to a fist. The middle finger extensor mechanism gets caught on the metacarpal head and snaps fairly dramatically when being brought into extension. The ring finger extensor tendon slides back more smoothly. This is evidence of radial sagittal band disruption for both the right middle and ring fingers. Significant enlargement of the right middle finger MCP joint With regards to the left hand: Similarly, we see ulnar deviation of the extensor mechanisms to both the left middle and left ring fingers with finger flexion. There is a catching sensation as she tries to bring them into extension though it is not as dramatic as the right middle finger. She says these are not as bothersome or painful as the right middle finger. I do not see any evidence of trigger finger, and again believe that the locking and catching is due to radial sagittal band disruptions for both the left middle and ring fingers. Radiology: 3 views of the right hand were taken and viewed by me today in clinic. They show no fractures or dislocations. There is joint space narrowing in the 2nd MCP joint mild narrowing in the 3rd MCP joint. The index finger PIP joint has complete loss of the joint space with radial sided translation & angulation of ~50 degrees. The middle finger PIP joint has arthritic changes with no deviation, DIP joint arthritis with angulation of ~50 degrees ulnarly. The ring finger has arthritic changes in the PIP joint with ulnar sided subluxation & angulation of ~20 degrees ulnarly. 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 3 views of the left hand were taken and viewed by me today in clinic. They show no fractures or dislocations. The middle finger has ~35 degrees ulnar deviation at the MCP joint, the PIP & DIP joints look good. Ring finger ~35 degrees ulnar deviation of the MCP joint, the PIP joint has ulnar translation & angulation of ~16 degrees. The DIP joint appears okay. 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 Psych Appearance: grossly normal Affect: normal affect Attitude: cooperative Assessment & Plan Assessment & Plan (1) Nontraumatic rupture of sagittal band of extensor tendon of right upper extremity: Comment: MF & RF Code(s): M66.241 - Spontaneous rupture of extensor tendons, right hand Category: Medical (2) Nontraumatic rupture of sagittal band of extensor tendon of left upper extremity: Comment: MF & RF Code(s): M66.242 - Spontaneous rupture of extensor tendons, left hand Category: Medical (3) Acquired deformity of joint of finger of right hand: Code(s): M20.001 - Unspecified deformity of right finger(s) Category: Medical (4) Malnutrition: Code(s): E46 - Unspecified protein-calorie malnutrition Category: Medical (5) Avoidant and restrictive food intake disorder: Code(s): F50.82 - Avoidant/restrictive food intake disorder Category: Medical (6) OCD (obsessive compulsive disorder): Code(s): F42.9 - Obsessive-compulsive disorder, unspecified Category: Medical (7) Generalized anxiety disorder: Code(s): F41.1 - Generalized anxiety disorder Category: Medical (8) Osteoarthritis, multiple sites: Code(s): M15.9 - Polyosteoarthritis, unspecified Category: Medical Plan Assessment & Plan: 1. Right middle finger MCP joint arthritis, swelling, & discomfort This is her most painful and symptomatic complaint today. I educated her about this condition I discussed operative and non-operative treatment options including steroid injection and she wishes to proceed with an injection I recommend an injection today, and she is in agreement She should work on gentle ROM exercises at home Injection #1: The risks and benefits of a steroid injection including but not limited to risk of damage to blood vessels, nerve, tendon, infection, skin bleaching, persistent or worsening pain, and failure to improve symptoms were discussed with the patient and they wish to proceed with the steroid injection. Once consent was obtained the skin over the dorsum of the Right 3rd finger MCP joint was sterilely prepped. The joint was then injected with a combination of 1 mL of dexamethasone (4mg/ml) and 0.5% plain Marcaine, using the mini C-arm for needle guidance. The patient appears to have tolerated the procedure well and with no complications. She had good early relief before leaving clinic today. She knows that they may not have another steroid injection into this joint for least 4 months. 2. Right middle finger radial sagittal band disruption 3. Right ring finger radial sagittal band disruption Her right hand is her primary complaint today 4. Left middle finger finger radial sagittal band disruption, S/P trigger finger injection Date of injection for trigger finger: 05/12/24 by EVER Garza 5. Left ring finger finger radial sagittal band disruption, S/P trigger finger injection Date of injection for trigger finger: 05/12/24 by EVER Garza 6. Right index finger PIP joint chronic deformity I suspect that the only way to fix this is with a PIP joint arthrodesis. However she would no longer flex or extend at the PIP joint following surgery, which would limit her ability to make a full fist. She will think about whether changing her appearance worth the loss of function. I had an extensive conversation with her about these conditions She has multiple joint deviation & deformities, which may potentially have an underlying Rheumatologic condition I discussed operative and non-operative treatment options. the only way to fix t his is with a sagittal band reconstruction The patient would like to proceed with surgery, however she has multiple comorbidities, including a history of 2 recent MIs, in November and January of 2024 and will need cardiology clearance, PCP clearance, and clearance from a spray machine operator before we can proceed with surgery. She has rather severe malnutrition, and she also has a history of an eating disorder. Her current BMI is 11.9, she is 5 ft 3 and her weight is 67lbs. I am concerned about her wound healing due to her malnutrition, with the possi bility of this not healing at all, and medically she does not appear to be a good candidate for surgery at this time. She would need clearance from her PCP after a full nutritional workup & batch roller operator prior to any surgical intervention She is frustrated by this but expressed understanding I also referred her to Rheumatology for evaluation & assessment. I will also speak with her PCP to order Rheumatologic labwork prior to the appointment She will follow up in a few months to see how she is doing. If we proceed with surgery the patient would like to have her left hand treated first. Please note that greater than 75 minutes was spent with this patient going over the history, evaluating the patient and radiographs, formulating possible treatment options, discussing them with the patient, confirming with her primary care provider, and documenting the visit. Again, unfortunately she left very frustrated that operative intervention would need to be delayed for improvement in her nutrition status, or confirmation of any improvement in her status. I did speak with her primary care provider Naomy Khan. The she had significant concerns about whether she is actually a candidate for surgery at this time. We both agreed that obtaining labs for both a full nutritional workup as well as labs for a rheumatologic workup would be beneficial, and she will start with those. If remote rheumatologic labs come back positive then she will continue with the rheumatology referral that I made even though she will likely not be seen until the summer. If her rheumatologic labs are normal then she can talk with Rheumatology about whether a visit with them would be beneficial. We both have concerns about her nutritional status including protein malnutrition, and how that could potentially affect healing following surgery. If her nutritional workup shows that she is indeed perfectly fit for operative care, as the patient strongly believes that she is, then I will be made aware of this and we can proceed from there. Please note that this patient should always have a 30 minute visit scheduled Scribed for Pilar Kahn MD by Chris Daugherty, medical detailist, on 09/16/25 at 10:40 AM, EST. Orders: Orders FL guided needle placement 09/16/25 E46 - Unspecified protein-calorie malnutrition, M15.9 - Polyosteoarthritis, unspecified, M20.001 - Unspecified deformity of right finger(s), M66.241 - Spontaneous rupture of extensor tendons, right hand, M66.242 - Spontaneous rupture of extensor tendons, left hand XR hand LT min 3V 09/16/25 M79.642 - Pain in left hand XR hand RT min 3V 09/16/25 M79.641 - Pain in right hand Referrals Rheumatology Referral M20.001 - Unspecified deformity of right finger(s), M66.241 - Spontaneous rupture of extensor tendons, right hand, M66.242 - Spontaneous rupture of extensor tendons, left hand Coding Level of Care Code Est Pt Level 5 (92342) Diagnoses Nontraumatic rupture of sagittal band of extensor tendon of right upper extremity M66.241 Nontraumatic rupture of sagittal band of extensor tendon of left upper extremity M66.242 Acquired deformity of joint of finger of right hand M20.001 Malnutrition E46 Avoidant and restrictive food intake disorder F50.82 OCD (obsessive compulsive disorder) F42.9 Generalized anxiety disorder F41.1 Osteoarthritis, multiple sites M15.9
[2025-09-16 10:35] VITALS: BMI 11.9
== END 2025-09-16 11:02 | disposition home or self-care (01) ==
LOC: HO.HOS 10:18
PROVIDERS: Visit Provider Orthopaedic Surgery
DX: M19.041 Primary osteoarthritis, right hand (principal)
CPT/HCPCS: 20600; 99215; 99417

== ENCOUNTER 2025-09-16 10:18 | Outpatient (REF) | payer MEDICARE, SELFPAY ==
--- NOTE | ~2025-09-16 | FL_ITS ---
EXAMINATION: FL GUIDANCE ONLY FOR NEEDLE PLACEMENT HISTORY: E46 - Unspecified protein-calorie malnutrition COMPARISON: Correlation is made with plain films of the right hand dated 09/16/2025. TECHNIQUE: Fluoroscopy time: 8.8 seconds. . DAP: 3830.2 uGym2 Images: 1. FINDINGS: A single fluoroscopic spot film of the right hand demonstrates a needle in the region of the 3rd MCP joint. FL/FL guided needle placement IMPRESSION: Fluoroscopy during procedure. Please see procedure report for additional information. Electronically signed by: Antelmo Gutierrez MD 09/17/2025 07:04 AM CAT
--- NOTE | ~2025-09-16 | XR_ITS ---
EXAMINATION: XR HAND 3 OR MORE VIEWS RIGHT, XR HAND 3 OR MORE VIEWS LEFT HISTORY: M79.641 - Pain in right hand COMPARISON: There are no prior studies available for comparison. FINDINGS: Eight views of the bilateral hands are submitted. Osseous mineralization is normal. There is no fracture or dislocation. On the right, there is radial subluxation of the PIP joint of the index finger and ulnar subluxation of the DIP joint of the middle finger and the PIP joint of the ring finger. There is moderate associated joint space narrowing, as well as narrowing of the MCP joint of the index finger. On the left, there is ulnar deviation of the MCP joint of the middle finger and the PIP and MCP joints of the 4th finger. There is narrowing of the PIP joints of the middle and ring fingers and the 1st MCP joint. The soft tissues are unremarkable. XR/XR hand RT min 3V IMPRESSION: Degenerative changes of the bilateral hands as described. Electronically signed by: Antelmo Gutierrez MD 09/16/2025 11:23 AM CAT
--- NOTE | ~2025-09-16 | XR_ITS ---
EXAMINATION: XR HAND 3 OR MORE VIEWS RIGHT, XR HAND 3 OR MORE VIEWS LEFT HISTORY: M79.641 - Pain in right hand COMPARISON: There are no prior studies available for comparison. FINDINGS: Eight views of the bilateral hands are submitted. Osseous mineralization is normal. There is no fracture or dislocation. On the right, there is radial subluxation of the PIP joint of the index finger and ulnar subluxation of the DIP joint of the middle finger and the PIP joint of the ring finger. There is moderate associated joint space narrowing, as well as narrowing of the MCP joint of the index finger. On the left, there is ulnar deviation of the MCP joint of the middle finger and the PIP and MCP joints of the 4th finger. There is narrowing of the PIP joints of the middle and ring fingers and the 1st MCP joint. The soft tissues are unremarkable. XR/XR hand LT min 3V IMPRESSION: Degenerative changes of the bilateral hands as described. Electronically signed by: Antelmo Gutierrez MD 09/16/2025 11:23 AM CAT
== END 2025-09-16 10:19 | disposition home or self-care (01) ==
LOC: HO.HOSX 10:18
PROVIDERS: Visit Provider Orthopaedic Surgery
DX: Z09 Encounter for follow-up examination after completed treatment for conditions other than malignant neoplasm (principal); M66.242 Spontaneous rupture of extensor tendons, left hand; M66.241 Spontaneous rupture of extensor tendons, right hand; M20.001 Unspecified deformity of right finger(s); M19.041 Primary osteoarthritis, right hand; F42.9 Obsessive-compulsive disorder, unspecified; F41.1 Generalized anxiety disorder; F50.82 Avoidant/restrictive food intake disorder; E46 Unspecified protein-calorie malnutrition; M25.441 Effusion, right hand
CPT/HCPCS: 20600; 73130; 77002; 99212; J1100; J2003

== ENCOUNTER → 2025-09-16 10:50 | Outpatient (BNV) | payer MEDICARE, SELFPAY | PROVIDERS: Visit Provider Radiology Diagnostic Radiology | DX: E46 Unspecified protein-calorie malnutrition (principal) | CPT/HCPCS: 77002 ==

== ENCOUNTER 2025-09-24 09:35 | Outpatient (AMB) | payer MEDICARE, SELFPAY ==
--- NOTE | 2025-09-24 09:43 | AM.OFFWIN_ITS ---
Intake Vital Signs 09/24/25 09:46 Height 5 ft 3 in Weight 67 lb BMI 11.9 BP 152/110 H Blood Pressure Location Lt brachial Position Sitting Pulse 78 Pulse Source Pulse Oximeter Temp 97.5 F Temp Source Oral Pulse Oximetry (%) 100 Oxygen Delivery Method Room Air Intake Visit Reasons: EP swollen glands, lightheaded, fever, hr high Intake Note: sore throat with swollen glands, sinus congestion, chest congestion with productive coughing and a heavy feeling chest, lightheaded x5days Patient Tobacco Use Status: Former Tobacco user Allergies No Known Allergies (No Known Allergies*) Allergy (Verified 09/24/25 09:44) Do you need a note to return to daycare/school/sports/work: No HPI HPI Comments History of Present Illness Details History - The patient is a 65-year-old female pr esenting with flu-like symptoms that began over the weekend, around Sunday or Sunday, and have progressively worsened. - Her symptoms include congestion, heada ches, sore throat, swollen glands, rhinorrhea, and a cough productive of mucus. - She reports her chest feels hot or on fire. - Since Sunday, she has experienced sig nificant lightheadedness and some blurry vision. - She also reports chest pressure, palpi tations, and feeling dizzy and hot. - She notes associated nausea, stomach a joyce, and diarrhea when she feels heated up. - Her past medical history is significan t for two heart attacks. - She is typically treated for hypoglyce soraida but notes her blood sugar has been elevated to 90-100 since the illness began, though it was 71 this morning. - She does not have a history of hyperte nsion but notes her blood pressure is currently high. - Fluid intake has been poor, consisting of coffee and an Ensure this morning. - The patient's mother had a severe cold the previous week. - A rapid strep test performed during th is visit was negative. - She expresses significant anxiety abou t being left alone in the exam room due to frequent hospitalizations over the past five years. - She denies nausea, vomiting, fever, ch ills, sick contacts, or travel. Physical Exam General: Cooperative, thin appearing, comfortable and no acute distress Orientation/consciousness: Patient oriented x3 Limitations: No limitations Head: Normal to inspection Ears: Hearing grossly normal bilaterally, external ears with skin peeling noted Nose: Normal external nose present, normal nares present, and nasal discharge present. Face and sinus: Sinuses nontender to palpation. Mouth: Normal oral and palatal mucosa present and moist mucous membranes noted. Throat: Tonsils normal. Uvula is midline. Posterior oropharynx with erythema and no exudates. Eyes: Appearance normal, both eyes and all related structures Neck: Normal visual inspection, full ROM. No lymphadenopathy noted. Respiratory: Clear to auscultation bilaterally. Normal respiratory effort, able to speak in complete sentences. No respiratory distress, not tachypneic, no tripod positioning and no use of accessory muscles. Cardiovascular: Regular rate and rhythm. Normal S1 and S2. No m/r/g noted. Skin: No rashes or lesions noted. Dry, bruised skin. Patient was informed and verbally consented to the use of an ambient scribe for clinic note documentation during this visit [facility] Medical History (Updated 09/01/25 @ 15:14 by Naomy Khan PA-C) Recurrent severe hypoglycemia Hypoglycemia Magnesium deficiency Skin tear of right elbow without complication High thyroid stimulating hormone (TSH) level Underweight (BMI < 18.5) Severely underweight adult History of sepsis History of femur fracture Osteoarthritis, multiple sites Elevated blood pressure reading Skin lesion Myocardial infarct Hx: UTI (urinary tract infection) (~03/01/24) Cataract Anxiety Basal cell carcinoma Skin lesion of right arm Skin lesion of back Chronic constipation Generalized anxiety disorder OCD (obsessive compulsive disorder) Avoidant and restrictive food intake disorder MSSA bacteremia Sacral pressure ulcer Malnutrition Failure to thrive in adult Normocytic anemia Cachexia Closed intertrochanteric fracture of femur Anemia Surgical History History of surgical removal of skin lesion (~09/29/24) Hx of basal cell carcinoma excision History of surgical removal of skin lesion (~01/23/24) History of hip surgery (11/16/21) H/O foot surgery Family History Father Heart disease Mother No problems noted. Social History Household Members: Family Household Members Other:: mother Housing: House Are you a primary healthcare customer service to a significant other at home: No Do you presently have visiting nurse or other home services: No Alcohol intake: never Comment: runs 30 minutes on treadmill daily Patient Tobacco Use Status: Former Tobacco user Tobacco use type: Cigarette Advance Directives Date on File: 11/16/21 service: Yes ([employer]) Current occupational status: retired Cognitive needs: No Hearing needs: No Vision needs: Yes (rx reading glasses) Review of Systems Const All systems reviewed & are unremarkable except as noted in HPI and below Physical Exam Vital Signs: Last Vital Signs Temp 97.5 F 09/24/25 09:46 Pulse 78 09/24/25 09:46 BP 152/110 H 09/24/25 09:46 Pulse Ox 100 09/24/25 09:46 Oxygen Delivery Method Room Air 09/24/25 09:46 BMI result Body Mass Index 11.9 Results AMB Rapid Strep AMB Rapid Strep Negative Last Edit by Letitia Leal CMA on 09/24/25 09:5 9 AMB Random Glucose (hemocue) AMB Random Glucose (hemocue) 82 mg/dL Last Edit by Verito Velasco CMA on 09/24/25 12:21 Results Reviewed Results Reviewed: Laboratory Last Values Random Glu (Clinic) 82 mg/dL 09/24/25 10:22 Strep Scn Rapid Clinic Negative 09/24/25 09:58 will review the EKG and CXR in office Assessment & Plan Assessment & Plan (1) URI with cough and congestion: Code(s): J06.9 - Acute upper respiratory infection, unspecified (2) Weakness: Code(s): R53.1 - Weakness Plan Most likely Acute Upper Respiratory Infection vs CAP vs covid vs flu vs RSV vs viral illness BS in the office was 81 plan - The patient presents with symptoms suggestive of an acute viral illness, with a negative rapid strep test. - A swab for COVID-19, influenza, and RSV has been ordered to identify the pathogen, with results pending. - A chest X-ray will be performed to rule out pneumonia, given her report of a hot feeling in her chest and productive cough. - An EKG will be performed to assess for any acute cardiac changes. - The possibility of needing a higher level of care at an emergency room for further testing and potential IV fluids was discussed, but the patient preferred to have the initial workup done in the clinic and does not want to go to the ER - The plan will be re-evaluated based on the results of the EKG, chest X-ray, and blood glucose check. - CXR and EKG were normal - follow up with PCP - Advised her to go to the ER if she continues to feel the same as she does now. Orders: Orders SARS-CoV2/FLU/RSV Today R09.89 - Other specified symptoms and signs involving the circulatory and respiratory systems AMB Rapid Strep Screen Today Z13.9 - Encounter for screening, unspecified AMB Random Glucose (hemocue) Today R42 - Dizziness and giddiness XR chest 2V Today R05.9 - Cough, unspecified AMB EKG-In Office Today R07.9 - Chest pain, unspecified Coding Level of Care Code Est Pt Level 4 (27353) Diagnoses URI with cough and congestion J06.9 Weakness R53.1
[2025-09-24 09:46] VITALS: BP 152/110; PULSE 78; TEMP 36.4; O2SAT 100; BMI 11.9
--- OUTSIDE RECORDS SUMMARY | 2025-09-24 11:09 | XMS_ITS | Clinical Summary ---
Author Organization [address] [facility] Address [address] [place] [address] Phone Care Team Providers Care Lab Systems Analyst Name Role Phone Adin Bob MD Primary Care Provider Allergies No known active allergies Medications multivit-min/iron/ folic acid/K (ADULTS MULTIVITAMIN ORAL) Take by mouth. Active calcium carbonate-cholecal ciferol (Calcium 500 + D) 500 mg-10 mcg (400 unit) per tablet Take by mouth. Active Active Problems Problem Noted Date Diagnosed Date Avoidant or restrictive food intake disorder Basal cell carcinoma 07/29/2024 Cachexia 07/29/2024 Deformity of finger of right hand 07/29/2024 DESTINEE (generalized anxiety disorder) 07/29/2024 MSSA bacteremia 07/29/2024 Normocytic anemia 07/29/2024 Obsessive compulsive disorder 07/29/2024 Spontaneous rupture of extensor tendon of left h and 07/29/2024 Spontaneous rupture of extensor tendon of right hand 07/29/2024 Unspecified protein-calorie malnutrition 024 Medical History Medical History Date Comments Basal [...] pressure ulcer Malnutrition (CMS/HCC V24) DX:Ma lnutrition (HCC) Failure to thrive in adult DX:Fa ilure to thrive in adult Normocytic anemia DX:Normocytic anemia Cachexia ([facility] V24) DX:Cachex ia (HCC) Closed intertrochanteric fra cture of femur ([facility] V24, [facility] V28) DX:Closed intertrocha nteric fracture of femur (HCC) Anemia DX:Anemia Social History Tobacco Use Types Packs/Day Years Used Date Smoking Tobacco: Never Assessed Comments Unknown Sex and Gender Information Value Date Recorded Sex Assigned at Not on file Legal Sex Female 1:04 AM EST Gender Identity Not on file Sexual Orientation Not on file Last Filed Vital Signs Vital Sign Reading [...] 1959 Zoster Vaccines (1 of 2) 1978 Pneumococcal Vaccine: 50+ Years (1 of 1 [...] LEFT Insurance MEDICAID - [place] Care Teams Lab Systems Analyst Relationship Specialty Start Date End Date Adin Bob MD [address] [place] [address] PCP - General 07/03/24
== END 2025-09-24 11:26 | disposition home or self-care (01) ==
PROVIDERS: PCP Physician Assistant Medical; Visit Provider Physician Assistant Medical
DX: J06.9 Acute upper respiratory infection, unspecified (principal); R53.1 Weakness; R42 Dizziness and giddiness; Z13.9 Encounter for screening, unspecified

== ENCOUNTER 2025-09-24 09:35 | Outpatient (REF) | payer MEDICARE, SELFPAY ==
[2025-09-24 15:12] LABS: Resp Syncy Virus RNA Qual PCR NEGATIVE (Negative); SARS COV2 PCR INHOUSE NEGATIVE (Negative)
== END 2025-09-24 09:36 ==
LOC: HO.LNP 09:35
PROVIDERS: Physician Assistant Medical; PCP Physician Assistant Medical
DX: J06.9 Acute upper respiratory infection, unspecified (principal); R53.1 Weakness; Z87.891 Personal history of nicotine dependence
CPT/HCPCS: 87637

== ENCOUNTER 2025-09-24 10:48 | Outpatient (REF) | payer MEDICARE, SELFPAY ==
--- NOTE | ~2025-09-24 | XR_ITS ---
EXAMINATION: XR CHEST CLINICAL INFORMATION: R05.9 - Cough, unspecified COMPARISON: November 08, 2023. TECHNIQUE: PA and lateral views. FINDINGS: Hyperinflated lungs. No consolidation, pleural effusion or pneumothorax. Increased AP diameter of the thorax. Cardiomediastinal silhouette size is small. S-shaped curvature of the thoracolumbar spine. Mild multilevel spondylosis. XR/XR chest 2V IMPRESSION: Hyperinflated lungs suggesting COPD emphysematous type changes. No acute airspace disease. Probable pectus carinatum. Electronically signed by: Maximiliano Carpenter MD 09/24/2025 11:00 AM [facility]
== END 2025-09-24 10:49 | disposition home or self-care (01) ==
LOC: HO.HMGCX 10:48
PROVIDERS: PCP Physician Assistant Medical; Visit Provider Physician Assistant Medical
DX: R05.9 Cough, unspecified (principal)
CPT/HCPCS: 71046; 82948; 87637; 87880; 99212

== ENCOUNTER → 2025-09-24 10:51 | Outpatient (BNV) | payer MEDICARE, SELFPAY | PROVIDERS: PCP Physician Assistant Medical; Visit Provider Radiology Diagnostic Radiology | DX: J98.4 Other disorders of lung (principal) | CPT/HCPCS: 71046 ==